=== PATIENT | female | born 1950 | race Caucasian/White ===

== ENCOUNTER 2025-09-11 07:12 | Outpatient (REF) | payer SELFPAY ==
--- OUTSIDE RECORDS SUMMARY | 2025-08-19 16:51 | XMS_ITS | Encounter Summary ---
Author Organization [facility] Address [address] [place] [address] Care Team Providers Care Parking Enforcement Manager Name Role Phone Vanessa Culver MD Primary Care Provider [phone] Reason for Referral * Cardiovascular Rehabilitation (Routine) - New Request Specialty Diagnoses / Procedures Referred By Kari shahid Referred To Contact Diagnoses Chronic systolic heart failure ([facility]) Katy Watson MD [address] [facility] [employer] [address] [place] [address] Phone: tel: fax: Referral ID Status Reason Start Date Expiration Date V isits Requested Visits Authorized [id number] New Request 09/10/2025 12/04/2026 1 1 * Consult / Treatment (Routine) - New Request Specialty Diagnoses / Procedures Referred By Kari shahid Referred To Contact Diagnoses Urinary retention Jorge Piña MD [address] [facility] [employer] [address] [place] [address] Phone: tel: fax: Referral ID Status Reason Start Date Expiration Date V isits Requested Visits Authorized [id number] New Request 09/04/2025 11/28/2026 1 1 * Consult / Treatment (Routine) - New Request Specialty Diagnoses / Procedures Referred By Contac t Referred To Contact Diagnoses Wrist drop, acquired, right Jorge Piña MD [address] [address] Phone: tel: fax: Referral ID Status Reason Start Date Expiration Date V isits Requested Visits Authorized [id number] New Request 09/04/2025 11/28/2026 1 1 * (Routine) - Pending Review Specialty Diagnoses / Procedures Referred By Kari t Referred To Contact Procedures Rehabilitation services not appropriate at this time Jorge Piña MD [address] [address] Phone: tel: fax: Referral ID Status Reason Start Date Expiration Date V isits Requested Visits Authorized [id number] Pending Review 09/04/2025 11/28/2026 1 1 Reason for Visit * Reason Comments Shoulder Pain * Auth/Cert (Routine) Specialty Diagnoses / Procedures Referred By Kari t Referred To Contact Diagnoses Closed comminuted fracture of left humerus, initial encounter Procedures [facility] IP/OBS CARE HIGH MDM 75 MINUTES Albin Puentes, DO [address] [place] [id number] Phone: tel: fax: Referral ID Status Reason Start Date Expiration Date Visits Re quested Visits Authorized [id number] 1 1 Encounter Details Date Type Department Care Team (Late st Contact Info) Description 08/19/2025 4:51 PM EST - 09/10/2025 5:30 PM EST Hospital Encounter [address] 330 [facility], [address]th [place] [address] Shelley Roblero MD [address] [place] [address] Jailyn Arreola MD [address] [facility] [place] [address] Harpreet Arredondo MD [address] [facility] [place] [address] Albin Puentes, DO [address] [place] [id number] Sunita Avery MD [address] [place] [address] Nadir Lewis MD [address] [place] [address] Eloy Gomez MD [address] [address] Jorge Piña MD 330 [facility] [address] [place] [address] Katy Watson MD 330 [facility] [place] [address] Acute pain of left shoulder (Primary Dx); Pain; Acute hypoxic respiratory failure (CMS-HCC); Chest pain, unspecified type; Urinary retention; Wrist drop, acquired, right; Anxiety; Chronic systolic heart failure (CMS-HCC); Acute on chronic hypoxic respiratory failure (CMS-HCC) [facility]charge Disposition[facility] Social History Tobacco Use Types Packs/Day Years Used Date Smoking Tobacco: Former Cigarettes 1.5 54 1 963 - 2017 Smokeless Tobacco: Never Alcohol Use Standard Drinks/Week Comments Never 0 (1 standard drink = 0.6 oz pur e alcohol) Humiliation, Afraid, Rape, and Kick questionnair e Answer Date Recorded Within the last year, have y ou been afraid of your partner or ex-partner? No 08/20/2025 Emotionally Abused Not on file 08/20/2025 Physically Abused Not on file 08/20/2025 Sexually Abused Not on file 08/20/2025 Social Connection and Isolation Panel Answer Date Recorded Frequency of Communication with Friends and Fami ly Not on file 08/23/2025 Frequency of Social Gatherings with Friends and Family Not on file 08/23/2025 Attends Druze Services Not on file 08/23 Active Member of Clubs or Organizations Not on f ile 08/23/2025 Attends Club or Organization Meetings Not on mimi e 08/23/2025 Are you , , di vorced, , never , or living with a partner? 08/23/2025 Overall Financial Resource Strain (CARDIA) Answe r Date Recorded How hard is it for you to pa y for the very basics like food, housing, medical care, and heating? Not hard at all 08/20/2025 Hunger Vital Sign Answer Date Recorded Within the past 12 months, y ou worried that your food would run out before you got the money to buy more. Never true 08/20/20 25 Ran Out of Food in the Last Year Not on file 08/20/2025 PRAPARE - Transportation Answer Date Re corded In the past 12 months, has l ack of transportation kept you from medical appointments or from getting medications? No 04/2025 In the past 12 months, has l ack of transportation kept you from meetings, work, or from getting things needed for daily living? No 08/20/2025 Housing Stability Vital Sign Answer Maxim e Recorded In the last 12 months, was t here a time when you were not able to pay the mortgage or rent on time? No 08/20/2025 Number of Times Moved in the Last Year Not on fi le 08/20/2025 Homeless in the Last Year Not on file 2024 [facility] Utilities Answer Date Recorded In the past 12 months has th e electric, gas, oil, or water company threatened to shut off services in your home? No 08/20/2025 Food Insecurity Answer Date Recorded Within the past 12 months, y ou worried that your food would run out before you got the money to buy more. Never true 08/20/20 25 Ran Out of Food in the Last Year Not on file 08/20/2025 Intimate Partner Violence Answer Date R ecorded Emotionally Abused Not on file 08/20/2025 Within the last year, have y ou been afraid of your partner or ex-partner? No 08/20/2025 Physically Abused Not on file 08/20/2025 Sexually Abused Not on file 08/20/2025 Housing Stability Answer Date Recorded Unstable Housing in the Last Year Not on file 08/20/2025 In the last 12 months, was t here a time when you were not able to pay the mortgage or rent on time? No 08/20/2025 [address] Lived in the Last Year Not on f ile 08/20/2025 AUDIT C Answer Date Recorded How often have you had a dri nk containing alcohol, in the past year? 0 08/20/2025 How many standard drinks con taining alcohol have you had on a typical day when you are drinking, in the past year? 0 1 2024 How often have you had six o r more drinks on one occasion, in the past year? 0 08/20/2025 Comments No Sex and Gender Information Value Date Recorded Sex Assigned at Female 08/18/2024 3:51 PM EST Legal Sex Female 7:30 AM EST Gender Identity Female 08/18/2024 3:51 PM EST Sexual Orientation Not on file documented as of this encounter Last Filed Vital Signs Vital Sign Reading Time Taken Comments Blood Pressure 126/49 09/10/2025 4:01 PM EST Pulse 68 09/10/2025 4:01 PM EST Temperature 36.6 C (97.9 F) 09/10/2025 4:01 PM EST Respiratory Rate 18 09/10/2025 11:53 AM EST Oxygen Saturation 100% 09/10/2025 4:19 PM EST Inhaled Oxygen Concentration - - Weight 62.8 kg (138 lb 6.4 oz) 09/09/2025 5:51 A M EST Height 172.7 cm (5' 8 ) 08/20/2025 4:29 AM EST Body Mass Index 21.04 08/20/2025 4:29 AM EST documented in this encounter Functional Status * Are you deaf or do you have serious difficulty hearing? Answer Date of Assessment Author No 08/20/2025 2:28 PM Guerda Petit RN * Are you blind or do you have serious difficulty seeing, even when wearing glasses? Answer Date of Assessment Author No 08/20/2025 2:28 PM Guerda Petit RN * Do you have serious difficulty walking or climbing stairs? Answer Date of Assessment Author No 08/20/2025 2:28 PM Guerda Petit RN * Do you have difficulty dressing or bathing? Answer Date of Assessment Author Yes 08/20/2025 2:28 PM Guerda Petit RN * Because of a physical, mental, or emotional condition, do you have difficulty doing errands alone such as visiting the doctor? Answer Date of Assessment Author No 08/20/2025 2:28 PM Guerda Petit RN documented as of this encounter Mental Status * Because of a physical, mental, or emotional condition, do you have serious difficulty concentrating, remembering, or making decisions? Answer Entry Date Author No 08/20/2025 2:28 PM Guerda Petit RN documented in this encounter Discharge Summaries * Katy Watson MD - 09/10/2025 3:04 PM EST DISCHARGE SUMMARY Date Of Admission: 08/19/2025 Inpatient Status Admit Date: 08/20/25 Date Of Discharge: Primary Care Physician: Vanessa Culver MD Reason for Admission: worsening b/l shoulder pain Principal Hospital Problem/Problem List: Discharge Diagnoses Diagnosis POA Closed comminuted fracture of left humerus, initial encounter Yes Acute on chronic hypoxic respiratory failure (CMS-HCC) Unknown Chronic HFrEF (heart failure with reduced ejection fraction) (CMS-HCC) Unknown Acute deep vein thrombosis (DVT) of axillary vein of right upper extremity (CMS- HCC) Unknown Moderate malnutrition Unknown Chronic hypoxic respiratory failure (CMS-HCC) Unknown Myelopathy (CMS-HCC) Unknown Chronic obstructive pulmonary disease (CMS-HCC) Unknown Resolved Diagnoses No resolved problems to display. Transitional Issues: Patient was discharged on the following pain regimen as outline in discharge summary/medication reconcilliation. Please wean opiates as possible once acute pain resolved. Failed a Trial of void in house on 08/30, likely multifactorial in setting of pain, opiates, and mobility. Urology referral for TOV She has follow up with Orthopedics on 09/11. Please continue to wrap Left upper extremity for compression. Activity restrictions: can come out of the sling for gentle pendulum range of motion. She may use the left upper extremity for light activity daily living but no heavy lifting more than 5 pounds (coffee cup weight bearing) On Apixaban for DVT treatment, should be treated for at least 3 months (circa 11/23/2024). Holding ASA until that time (indication non-obstructive Coronary artery disease) Should see endocrinology for ongoing care of osteoporosis Repeat CT chest in 3 months for pulmonary nodules Repeat CT in 12 months Thoracic aorta 4.0 - 4.4 cm in diameter Incidental Findings: [] Multilevel degenerative changes causing up to mild spinal canal stenosis most notable from C4-C5 through C6-C7 [] Chronic appearing T1 compression fracture with approximately 70% height loss without retropulsion. [] Few nodular opacity in left upper lung. These findings are better evaluated in recent CT pulmonary angiography. If clinically indicated consider CT chest follow-up in 3 months [] Thoracic aorta 4.0 - 4.4 cm in diameter - if stable findings at 12 months or interval increase in diameter is < 3 mm, consider follow-up with ECG-gated chest CTA in 2 years. Pending Tests on Discharge: Pending Data Order Current Status Vitamin A In process Follow-up Appointments: Future Appointments Date/Time Provider Department Center Visit Type 09/11/2025 1:00 PM NORMA Johnson [facility] Orthopedics [facility] ESTABLISHED PATIENT- ORTHO History Of Present Illness: [From H&P] Mayra Craft is a 74 y.o. 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 Recently, she has Chronic R rotator cuff arthropathy s/p R total shoulder arthroplasty 07/11/25 then conversion to R shoulder hemiarthroplasty with glenoid and humeral implant on 08/01/25. Was hospitalized 08/01-08/10 with SOB felt combo of slight CHF exacerbation and asCOPD as well, CTA no PE. Then there was concern for possible RLL aspiration on CTA with mucoid impaction. No fever, leukocytosis, tachy however to suggest active infection, continued bactrim 08/01-08/10 after surgery. No growth from OR culture to suggest infection. R arm was swollen after surgery, in which US then was negativefor DVT. Dced to [facility] ([facility]) She is presenting from rehab with bilateral shoulder pain after a fall while at rehab from 4 days ago. She states she was going to sit on toilet, miss judged, and landed on her L shoulder against thewall. No LOC. Worsening b/l shoulder pain, BIBA from [facility] and subsequently sent to [facility] for further evaluation. She reports bilateralupper extremity pain, denies any numbness/tingling/paresthesias. She states her R shoulder has beensignificantly swollen since surgery. She is otherwise denies any respiratory sx such as cough, SOB.No chest palpitations or chest pain, no ab pain. Hospital Course: TRANSITIONAL ISSUES Primary Care/Rehab Transitional Issues: Patient was discharged on the following pain regimen as outline in discharge summary/medication reconcilliation. Please wean opiates as possible once acute pain resolved. Failed a Trial of void in house on 08/30, likely multifactorial in setting of pain, opiates, and mobility. Urology referral for TOV She has follow up with Orthopedics on 09/11. Please continue to wrap Left upper extremity for compression. Activity restrictions: can come out of the sling for gentle pendulum range of motion. She may use the left upper extremity for light activity daily living but no heavy lifting more than 5 pounds (coffee cup weight bearing) On Apixaban for DVT treatment, should be treated for at least 3 months (circa 11/23/2024). Holding ASA until that time (indication non-obstructive Coronary artery disease) Should see endocrinology for ongoing care of osteoporosis Repeat CT chest in 3 months for pulmonary nodules Repeat CT in 12 months Thoracic aorta 4.0 - 4.4 cm in diameter Incidental Findings: [] Multilevel degenerative changes causing up to mild spinal canal stenosis most notable from C4-C5 through C6-C7 [] Chronic appearing T1 compression fracture with approximately 70% height loss without retropulsion. [] Few nodular opacity in left upper lung. These findings are better evaluated in recent CT pulmonary angiography. If clinically indicated consider CT chest follow-up in 3 months [] Thoracic aorta 4.0 - 4.4 cm in diameter - if stable findings at 12 months or interval increase in diameter is < 3 mm, consider follow-up with ECG-gated chest CTA in 2 years. Ortho Please follow up with radiographs. HOSPITAL COURSE SUMMARY Mayra Craft is a 74 y.o. 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 recent hospitalization 08/01-08/10 with shortness of breath felt combo of slight congestive heart failure exacerbation and COPDE/PNA mucoid impaction, dced to SNF presented with worsening b/l shoulde r pain after fall at SNF 4 days ago found to have Left humeral Fracture and Right upper extremity Deep vein thrombosis. S/p IR aspiration of right shoulder (08/22 9 am) to rule out septic arthritis, with cultures negative to date. Chronic pain was consulted for aid in pain management and ultimatelypt was discharged on mutli-modal pain control with assistance from pain service. Functional status was significantly impaired due to bilateral upper extremity injuries, pain, and deconditioning, necessitating maximal assistance with ADLs and mobility; discharge planning focused on transfer to a rehabilitation facility for ongoing care and therapy. PROBLEM LIST # Pain control # History of Opioid Use Disorder, on suboxone Pt with a history of opioid use disorder in setting of opioids for pancreatitis, recently started on suboxone (May). Requiring high amounts of opioids in this setting given her humerus fractureand post-R shoulder hemiarthroplasty. Chronic pain was consulted and aided in adjusting pain regimen. Initially required Morphine SATURATION DIVER; however, was weaned to oral pain medications. She was dischargedon the following pain regimen: - 8-2 mg dose suboxone TID - Lyrica 100 mg BID - Oxycodone 15 mg PO Q4H PRN - Methocarbamol 500 mg QID - Acetaminophen 1g 4 times daily PRN. # Left proximal humerus comminuted transverse fracture s/p fall # Significant LUE edema Patient with a mechanical fall after misjudging where the toilet seat is and falling onto her Left shoulder while at SNF. Given persistent pain, presented to the ED. CT scan of Left humerus showed acceptable alignment amenable to non- operative treatment with immobilization in a sling; however, pt unable to tolerate sling consistently with continued pain. Repeat LUE XR with interval callus formation and no new dislocation or fracture. Ortho followed and recommended follow-up in 1 week post discharge with Xray. - Pain control as above. - Activity restrictions: can come out of the sling for gentle pendulum range of motion. She may usethe left upper extremity for light activity daily living but no heavy lifting more than 5 pounds (coffee cup weight bearing) # Concern for Right Wrist Drop Patient with Right wrist pain and difficulty with voluntary extension. Ortho examined on 08/28 and not concerned about septic wrist, but are concerned for possible nerve impingement. Neurology initially recommended MRI right brachial plexus, but after discussion with Neurology + Radiology, there will be significant artifact owing her her Right shoulder prosthesis and her Left sided PPM to the point of a non-diagnostic study. She did undergo a C-spine MRI that was overall not concerning for acute process. An outpatient neurology appointment can be pursued with considerations of EMG at that time. - 08/28 Right humerus XR with osteopenia but no fracture. - Neurology Outpatient follow up. # Right shoulder swelling/pain, c/f R shoulder septic arthritis # Chronic R rotator cuff arthropathy s/p R total shoulder arthroplasty 07/11/25, conversion to Right shoulder hemiarthroplasty with glenoid and humeral implant on 08/01/25 # Chronic right shoulder dislocation Patient with increased Right shoulder pain and swelling post-surgery on 08/01 w/concern for possible septic joint w/CRP of 293. Initially given antibiotics, but d/c'ed for IR procedure on 08/20 to increase yield of IR tap on 08/22. Joint cultures NGTD. X ray showing chronic anterior dislocation of the humeral head relative to the glenoid, ortho reviewed and no acute intervention required, and willfollow-up OP (Dr. Goins). Pain was controlled as above. # Acute on chronic hypoxic respiratory failure (baseline 4L NC) # Hospital Acquire Pneumonia # Consolidative opacities in both lower lobes (from CT chest 08/19) # COPD without exacerbation Patient with noted consolidative opacities in both lower lobes from CT chest, initially w/o respiratory symptoms and baseline 4L NC. However, pt developed increased O2 requirements overnight, likely positional or 2/2 mucoid impaction; however, CXR still with evidence of PNA. Given pt was at rehab prior to current admission, treated recently for PNA with bactrim (08/01-08/10), and significant underlying lung disease will plan to treat for HAP. On 08/25, pt lost IV access and her IV antibiotics were transitioned to PO linezolid + levofloxacin. Overall, given pt's clinical stability very low concern for true MRSA HAP despite + MRSA swab, thus will plan to complete course of HAP coverage with Le vofloxacin, which was completed on 08/29. Repeat XR on 08/28 with stable to improved disease. Home inhalers continued. # Urinary retention Patient with urinary retention this admission. Multifactorial, likely some underlying pelvic floor dysfunction (was having trouble urinating prior to this hospitalization) + constipation from opioid use/decreased hydration + immobility. UA w/o evidence of infection. Helton was placed overnight between 08/25 - 08/26. Trial of void was attempted with continued retention. She will need to follow up with Urology outpatient for TOV. # Moderate hyponatremia, resolved Paitent with Na of 125 08/25. Overall most concerned for hypovolemic hyponatremia vs tea and toast given pt unable to feed herself consistently. Of note, patient also getting vancomycin in Dextrose which could be contributing. Last diuretic dose on 08/22. Urine studies consistent with ADH being on given Urine osms > 200. Urine Na is > 20, FeUrea < 55%. With IVF trial, Na increased, consistent with likely low EABV though if pt does have SIADH it is likely in setting of uncontrolled pain. # Access Patient with very difficult upper extremity access this admission given Right upper extremity DVT +Left humerus proximal fracture and resulting edema. Given need for SATURATION DIVER + other intermittent IV medication needs, including electrolyte repletion + frequent lab draws, temporary central line placed on08/27 as PICC/midline are not options. It was removed on discharge. # New Right axillary vein Deep vein thrombosis Patient with worsening R arm pain post-fall on L shoulder, w/increased swelling over right shoulderand lower arm. She was found on admission to have a new R axillary vein DVT. Hep gtt started 08/20. Switched to apixaban on 08/25 after confirmation of no further procedures. - Apixaban 5mg BID started on 08/25, requires at least 3 months AC (Circa 11/23/25). Outpatient follow up. CHRONIC CONDITIONS # Chronic HFrEF Nt-proBNP was normal 125 on admission w/no signs/symptoms of volume overload. Held home lasix 20mg MWF given lack of PO intake and concern regarding hypotension and hyponatremia as above. Entresto was resumed on 08/21. Lasix was resumed prior to discharge. # Sick sinus syndrome s/p dcICD # NSVT PVC burden of 10% on prior Zio. Metoprolol was therapeutically exchanged to tartrate 12.5 BID on admission. On discharge switched back to metoprolol succinate 12.5 BID. # Chronic iron deficiency anemia: Baseline hb 9-10s, iron low on 08/03, ferritin 101. Received IV Iron this admission and continued po iron. # Moderate malnutrition: Has lost >30lbs over last 6 months d/t poor appetite. Hypocalcemia corrected to ~9 w/albumin. - multivitamins, ensure tid, nutrition consult. Need help with food due to b/l arm pain # Constipation: Senna/miralax scheduled + bisacodyl suppository PRN # Chronic iron deficiency anemia: Baseline hb 9-10s. Tsat 6% on 08/03. Continue po iron, Ensure Outpatient work up. # Moderate malnutrition: has lost >30lbs over last 6 months d/t poor appetite. multivitamins, ensure tid, nutrition consult. Need help with food due to b/l arm pain # Hypothyroidism - levothyroxine 50mg # Anxiety/depression - ativan 0.5 bid -> changed to BID PRN due to high dose opioid use, c/h paroxetine 20 # GERD - omeprazole 20mg daily # Hyperlipidemia - atorvastatin 20mg daily. . # Nonobstructive CAD - asa 81, stop while on therapeutic AC for now Less than 30 days expected rehab Physical Exam: Temp: [97.1 ??F (36.2 ??C)-98.5 ??F (36.9 ??C)] 98.5 ??F (36.9 ??C) Heart Rate: [54-77] 77 Resp: [16-18] 18 BP: (96-145)/(56-71) 128/56 SpO2: [93 %-100 %] 93 % Physical Exam General: Appears comfortable with intermittently in pain with movement of her shoulders. HEENT: No scleral icterus. No conjunctival injection. Pulmonary: No increased work of breathing, on 4 L NC. Lungs with no wheezing, rales. Cardiovascular: Regular rate and rhythm. No murmurs, gallops, or rubs. Abdominal: Soft, mildly distended, non-tender to palpation. Extremities: No lower extremity edema. Warm and well perfused. MSK: Pt with large area of bruising around left arm (within marked area) and improving with ROM intact at shoulder, limited at elbow due to pain. LUE with improved swelling with compression with cori wrapping. RUE with 2+ pitting edema in the proximal arm. Mild tenderness to palpation over right upper arm with c/d/I incision scar anteriorly + preserved ROM at shoulder, ROM limited over elbow due to pain. R wrist with bruising over R wrist, pain with flexion, improvement on extension--ROM intact though with pain. Psych: Alert and oriented. Normal affect. 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 apixaban (ELIQUIS) 5 mg Tab, Take 1 tablet (5 mg total) by mouth in the morning and 1 tablet (5 mg total) before bedtime. Do all this for 163 doses. ascorbic acid (VITAMIN C) 500 MG tablet, Take 1 tablet (500 mg total) by mouth in the morning. [Paused] aspirin 81 MG EC tablet, Take 1 tablet (81 mg total) by mouth in the morning and 1 tablet (81 mg total) before bedtime. Paused since Wed09/04/2025 until manually resumed atorvaSTATin (LIPITOR) 20 MG tablet, Take 1 tablet (20 mg total) by mouth at bedtime. buprenorphine-naloxone (SUBOXONE) 8-2 mg Film, Place 1 Film under the tongue in the morning and 1 Film in the evening and 1 Film before bedtime. Do all this for 7 days. cholecalciferol (VITAMIN D3) 1,000 unit tablet, Take 1 tablet (1,000 Units total) by mouth in the morning. cycloSPORINE (RESTASIS) 0.05 % ophthalmic emulsion, Administer 1 drop to both eyes in the morning and 1 drop before bedtime. furosemide (LASIX) 20 MG tablet, Take 1 tablet (20 mg total) by mouth 3 times a week (Mon, Wed, Fri). levothyroxine (SYNTHROID, LEVOXYL) 50 MCG tablet, Take 1 tablet (50 mcg total) by mouth every morning. lidocaine 4 % PtMd patch, Place 2 patches on the skin in the morning. methocarbamoL (ROBAXIN) 500 MG tablet, Take 1 tablet (500 mg total) by mouth in the morning and 1 tablet (500 mg total) at noon and 1 tablet (500 mg total) in the evening and 1 tablet (500 mg total) before bedtime. metoprolol ER (TOPROL-XL) 25 MG 24 hr tablet, Take 0.5 tablets (12.5 mg total) by mouth in the morning and 0.5 tablets (12.5 mg total) before bedtime. mometasone-formoterol (Dulera) 100-5 mcg/actuation inhaler, Inhale 2 puffs in the morning and 2 puffs before bedtime. mometasone-formoterol (Dulera) 100-5 mcg/actuation inhaler, Inhale 2 puffs in the morning and 2 puffs before bedtime. Multivitamin with Minerals tablet, Take 1 tablet by mouth in the morning. Start: 09/11/25 omeprazole (PriLOSEC) [address] capsule, Take 1 capsule (20 mg total) by mouth every morning. PARoxetine (PAXIL) 20 MG tablet, Take 1 tablet (20 mg total) by mouth every morning. pregabalin (LYRICA) 100 MG capsule, Take 1 capsule (100 mg total) by mouth in the morning and 1 capsule (100 mg total) before bedtime. Do all this for 7 days. sacubitriL-valsartan (ENTRESTO) 24 mg-26 mg Tab per tablet, Take 0.5 tablets by mouth in the morning and 0.5 tablets before bedtime. sennosides (SENOKOT) 8.6 mg tablet, Take 2 tablets (17.2 mg total) by mouth in the morning and 2 tablets (17.2 mg total) before bedtime. tiotropium bromide (SPIRIVA RESPIMAT) 2.5 mcg/actuation Mist inhalation, Inhale 2 puffs in the morning. ZENPEP 25,000-79,000- 105,000 unit CpDR, Take 2 capsules (50,000 units of lipase total) by mouth inthe morning and 2 capsules (50,000 units of lipase total) at noon and 2 capsules (50,000 units of lipase total) in the evening. Take with meals. Two capsules before meals One capsule before and aftersnack. PRN acetaminophen (TYLENOL) 500 MG tablet, Take 2 tablets (1,000 mg total) by mouth every 6 hours as needed for pain. albuterol HFA (VENTOLIN HFA) 90 mcg/actuation aerosol inhaler, Inhale 2 puffs every 4 hours as needed for wheezing or shortness of breath. bisacodyl (DULCOLAX) 10 mg suppository, Insert 1 suppository (10 mg total) into the rectum daily asneeded for constipation. bisacodyl (DULCOLAX) 5 mg EC tablet, Take 2 tablets (10 mg total) by mouth daily as needed for constipation (3rd line; Give 12 hours after magnesium hydroxide for unrelieved constipation). calcium carbonate (TUMS) 200 mg calcium (500 mg) chewable tablet, Chew 1 tablet (500 mg total) 3 times a day as needed for heartburn. ipratropium (ATROVENT) 0.02 % nebulizer solution, Take 2.5 mL (0.5 mg total) by nebulization every 8 hours as needed for wheezing. ipratropium-albuteroL (DUONEB) 0.5-2.5 mg/3 mL nebulizer, Take 3 mL by nebulization every 6 hours as needed for wheezing. lidocaine HCL (URO-JET) 2 % JelP, Insert 5 mL into the urethra as needed (For patient comfort) for up to 1 dose. LORazepam (ATIVAN) 0.5 MG tablet, Take 1 tablet (0.5 mg total) by mouth 2 times a day as needed foranxiety for up to 7 days. ondansetron (ZOFRAN-ODT) 4 MG disintegrating tablet, Take 1 tablet (4 mg total) by mouth every 8 hours as needed for nausea. oxyCODONE (ROXICODONE) 15 MG immediate release tablet, Take 1 tablet (15 mg total) by mouth every 4hours as needed for pain for up to 4 days. polyethylene glycol (MIRALAX) 17 gram packet, Take 1 packet (17 g total) by mouth daily as needed (first line). No Frequency [id number] 160-9-4.8 mcg/actuation HFAA, INHALE 2 PUFFS BY MOUTH TWICE DAILY. RINSE AFTER USE Allergies: Tetracyclines and Gabapentin Labs: Results from last 7 days Lab Units 09/09/25 0526 09/07/25 0631 09/04/25 0403 WBC K/uL 4.45 4.34 5.78 HEMOGLOBIN g/dL 8.6* 8.6* 8.2* HEMATOCRIT % 28.7* 28.2* 26.5* PLATELETS K/uL 220 232 253 Results from last 7 days Lab Units 09/09/25 0526 09/07/25 0631 09/04/25 0403 SODIUM mmol/L 134* 134* 134* POTASSIUM mmol/L 4.8 3.9 4.3 CHLORIDE mmol/L 99 100 98 CO2 mmol/L 29 29 32 BUN mg/dL 19 19 21* CREATININE mg/dL 0.40 0.40 0.40 CALCIUM mg/dL 8.2* 8.4 8.1* GLUCOSE mg/dL 94 114* 124* Microbiology: Results for orders placed or performed during the hospital encounter of 08/19/25 Culture, Blood Collection Time: 08/19/25 5:12 PM Specimen: Peripheral; Blood Result Value Ref Range Culture No growth after 5 days Culture, Prosthetic Joint Fluid Collection Time: 08/22/25 9:53 AM Specimen: Prosthetic joint fluid; Body Fluid Result Value Ref Range Prosthetic Joint Fluid Culture No growth Smear,Gram Stain 1+ Polymorphonuclear Leukocytes Smear,Gram Stain No Microorganisms Seen Nasal MRSA by PCR Collection Time: 08/23/25 1:29 PM Specimen: Nares; Respiratory Result Value Ref Range MRSA PCR Positive (A) Negative Imaging: CT Shoulder Left Without Contrast Result Date: 08/21/2025 EXAMINATION: CT SHOULDER LEFT WO CONTRAST INDICATION: shoulder pain; TECHNIQUE: MDCT images of the left shoulder were obtained without contrast. Coronal and sagittal reformats were obtained. DOSE: Acquisition sequence: 1) Spiral Acquisition 5.0 s, 23.0 cm; CTDIvol = 13.3 mGy (Body) DLP = 306.2 mGy-cm Total DLP (Body) = 306 mGy-cm COMPARISON: Radiograph of left shoulder dated August [address] pulmonary angiography dated August 19. FINDINGS: BONES: Mild diffuse osseous demineralization. There is a complete transverse comminuted displaced fracture involving the neck of the humerus. The fracture line is seen extending into inferior articular surface of the humeral head as well as the greater t uberosity. There is almost half shaft width anterior displacement of the distal fracture fragment with mild superior migration (approximately 1.9 cm) and impaction. The glenohumeral alignment is well-maintained. No suspicious focal osseous lesion is seen. Note is made of compression fracture of indeterminate age T1 vertebral body and possible superior endplate compression of T2. Visualized ribs do not show any overt fracture, however the evaluation is limited by subtle motion artifacts. SOFT TISSUES: Mild soft tissue edema surrounding the shoulder joint. No localized fluid collection or any hematoma formation. No effusion or evidence of tendon entrapment. No disproportionate muscle atrophy.OTHER: Note is made of severe centrilobular emphysema in visualized lungs. Consolidative opacity inthe left lower lobe is partially visualized. Few nodular opacity in left upper lung. 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 These findings are better evaluated in recent CT pulmonary angiography 1. Complete transverse comminuted displaced, impacted fracture involving neck of the humerus extending into inferior articular surface humeral head and greater tuberosity 2. Compression fracture of indeterminate age T1 vertebral body and possible superior endplate compression of T2. 3. Consolidative opacity in the left lower lobe is partially visualized. Few nodular opacity in left upper lung. These findings are better evaluated in recent CT pulmonary angiography. If clinically indicated consider CT chest follow-up in 3 months. BY ELECTRONICALLY SIGNING THIS REPORT, I THE ATTENDING PHYSICIAN ATTEST THAT I HAVE REVIEWED THE IMAGES FOR THE ABOVE PROCEDURE(S) AND AGREE WITH THE FINDINGS DOCUMENTED. Guy Hummel MD, electronically signed on Aug 21 2025 10:44AM ECG 12 lead Result Date: 08/21/2025 Sinus rhythm with premature atrial depolarizations Minimal voltage criteria for LVH, may be normal variant ( Walker product ) Nonspecific T wave abnormality Inferior GA - indeterminate age Abnormal ECG When compared with ECG of 07-Aug-2025 13:31, premature ventricular depolarizations are no longerpresent premature atrial depolarizations are now present ST elevation now present in Anterior leads Shoulder 2+ Vw Left Result Date: 08/20/2025 INDICATION: s/p fall, surgery, pain, swelling ?fx; TECHNIQUE: Three views of the left shoulder COMPARISON: None. FINDINGS: A comminuted and impacted fracture of the left proximal humerus involves thehumeral head and surgical neck. No dislocation. Glenohumeral joint is preserved. Mild joint space narrowing of the acromioclavicular joint. Imaged left lung demonstrates chain sutures from prior leftupper segmentectomy. Generator pack for a pacer is seen in the left upper chest wall. Comminuted and impacted left proximal humeral fracture involving the humeral head and surgical neck. No dislocation. Akanksha Ríos MD, electronically signed on Aug 20 2025 11:03AM US Upper Extremity Venous Bilateral Result Date: 08/20/2025 EXAMINATION: US UPPER EXTREMITY VENOUS BILATERAL INDICATION: Edema, pain/tenderness TECHNIQUE: Greyscale and Doppler evaluation was performed on the bilateral upper extremity veins. COMPARISON: None. FINDINGS: There is normal flow with respiratory variation in the bilateral subclavian veins. The right internal jugular vein is patent, shows normal color flow, spectral doppler, and compressibility. The right brachial veins are patent and show compressibility. The right axillary vein is not compressible and does not show normal [id number] color flow, consistent with nonocclusive thrombus in the right axillary vein. The rest of the exam was not performed as the patient was unable to toleratethe exam due to pain. 1. Nonocclusive deep vein thrombus of the right axillary vein. 2. This study only assessed bilateral subclavian, right internal jugular, right brachial, and right axillary veins. The rest of upper extremities were not assessed as the patient was unable to tolerate the exam due to pain. NOTIFICATION: The findings were discussed with, and acknowledged by Dr. Albin Puentes by Dr. Sherry Valladares, using [employer] Secure Chat on 08/20/2025 at 9:53 am, 3 minutes after discovery of the findings. BY ELECTRONICALLY SIGNING THIS REPORT, I THE ATTENDING PHYSICIAN ATTEST THAT I HAVE REVIEWED THE IMAGES FOR THE ABOVE PROCEDURE(S) AND AGREE WITH THE FINDINGS DOCUMENTED. Sherry Gomez MD, electronically signed on Aug 20 2025 10:38AM XR Chest 1 Vw Portable Result Date: 08/19/2025 EXAMINATION: XR CHEST 1 VW PORTABLE INDICATION: sob, cough /pna; TECHNIQUE: Semi-upright AP view ofthe chest COMPARISON: CTA chest 19 August 2025 at 18:44 and 07 August 2025, chest radiograph 07 August 2025 FINDINGS: Left-sided pacer with leads in the right atrium and right ventricle, unchanged.Mild cardiomegaly is similar. Mediastinal and hilar contours are unchanged. No pulmonary edema. Diffuse increased interstitial opacities are again noted and related to underlying severe emphysema. Patchy airspace opacities are again noted in the lower lobes which is concerning for pneumonia. No pleural effusion or pneumothorax. No acute osseous abnormalities. Partially imaged comminuted left proximal humeral fracture. Status post right shoulder arthroplasty with the humeral head component demonstrating anterior dislocation. Contrast from recent CT examination is seen in the renal collectingsystems bilaterally. Patchy bilateral lower lobe opacities suggesting pneumonia as seen on prior CT. Partially imaged comminuted left proximal humeral fracture and anteriorly dislocated humeral component of a right shoulder arthroplasty. Akanksha Ríos MD, electronically signed on Aug 19 2025 10:25PM XR Shoulder 2+ Vw Right Result Date: 08/19/2025 INDICATION: s/p fall, surgery, pain, swelling ?fx; TECHNIQUE: Right shoulder, three views COMPARISON: CT chest 07 August 2025 and right shoulder radiographs 14 August 2025 FINDINGS: Status post right shoulder arthroplasty with persistent anterior, medial and inferior displacement of the humeral head component relative to the glenoid. No acute fracture. Acromioclavicular joint demonstrates milddegenerative changes. Fragmentation of the acromion appears chronic. No periarticular soft tissue calcifications. Severe emphysema is noted in the imaged right lung. 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 No acute fracture. Akanksha Ríos MD, electronically signed on Aug 19 2025 10:25PM XR Elbow 3+ VW Right Result Date: 08/19/2025 INDICATION: elbow pain; TECHNIQUE: AP and lateral views of the elbows bilaterally COMPARISON: None.FINDINGS: On the left, no acute fracture or dislocation. No elbow joint effusion. Mild degenerativechanges of the humeroulnar joint. No concerning lytic or sclerotic osseous abnormality. No embeddedradiopaque foreign body or soft tissue calcification. On the right, no acute fracture or dislocation. No elbow joint effusion. Mild degenerative changes of the ulnohumeral joint. No suspicious lytic or sclerotic osseous abnormality. Mild soft tissue irregularity is seen along the dorsal aspect of th e elbow. No acute fracture or dislocation involving either elbow. Akanksha Ríos MD, electronically signed on Aug 19 2025 10:24PM XR Elbow 3+ VW Left Result Date: 08/19/2025 INDICATION: elbow pain; TECHNIQUE: AP and lateral views of the elbows bilaterally COMPARISON: None.FINDINGS: On the left, no acute fracture or dislocation. No elbow joint effusion. Mild degenerativechanges of the humeroulnar joint. No concerning lytic or sclerotic osseous abnormality. No embeddedradiopaque foreign body or soft tissue calcification. On the right, no acute fracture or dislocation. No elbow joint effusion. Mild degenerative changes of the ulnohumeral joint. No suspicious lytic or sclerotic osseous abnormality. Mild soft tissue irregularity is seen along the dorsal aspect of th e elbow. No acute fracture or dislocation involving either elbow. Akanksha Ríos MD, electronically signed on Aug 19 2025 10:24PM CT Angiogram Chest PE : Arteriogram Addendum Date: 08/19/2025 ADDENDUM The patient is status post right shoulder arthroplasty (not reverse shoulder arthroplasty). The anterior dislocation of the humeral head component relative to the glenoid appears similar compared to the prior CTA chest from August 07, 2025. Akanksha Ríos MD, electronically signed on [id number] 08:47PM Result Date: 08/19/2025 EXAMINATION: CTA CHEST WITH CONTRAST INDICATION: pt w/ sob, chest pain, tachycardia; TECHNIQUE: Axial multidetector CT images were obtained through the thorax after the uneventful administration of intravenous contrast including reformatted coronal, sagittal, and oblique and axial maximal intensityprojection (MIP) images. DOSE: Acquisition sequence: 1) Stationary Acquisition 0.5 s, 0.5 cm; CTDIvol = 3.0 mGy (Body) DLP = 1.5 mGy-cm 2) Stationary Acquisition 2.0 s, 0.5 cm; CTDIvol = 12.1 mGy (Body) DLP = 6.1 mGy-cm 3) Spiral Acquisition 4.1 s, 30.6 cm; CTDIvol = 8.2 mGy (Body) DLP = 252.0 mGy-cm Total DLP (Body) = 260 mGy- cm COMPARISON: CTA chest 07 August 2025 FINDINGS: VASCULATURE: Main pulmonary artery is borderline enlarged at 3.1 cm. No filling defects to the subsegmental level to indicate a pulmonary embolism. Ascending aorta demonstrates fusiform dilatation to 4.2 cm and the descending thoracic aorta is dilated up to 3.4 cm, as seen previously. No aortic dissection or intramural hematoma. HEART: Mild cardiomegaly. Pacing leads terminate within the right atrium and right ventr icle. Moderate coronary artery calcifications. No significant pericardial effusion. AXILLA, MARCELL, AND MEDIASTINUM: No lymphadenopathy or mass. The esophagus is patulous which can be seen with esophageal dysmotility. PLEURAL SPACES: No pleural effusion or pneumothorax. LUNGS: Heterogeneous consolidative opacities in both lower lobes can be seen with pneumonia. Severe centrilobular emphysema is again demonstrated. AIRWAYS: Airway wall thickening suggesting inflammation is noted. Central airways are patent to the segmental bronchial level. BASE OF NECK: 5 mm rim calcified thyroid nodule is notedwhich does not require specific sonographic follow-up. ABDOMEN: Visualized upper abdomen unremarkable. BONES: A comminuted left proximal humeral fracture is incompletely imaged. Status post right reverse shoulder arthroplasty with anterior subluxation/dislocation of the hardware relative to the glenoid. A subacute fracture of the sternum is noted (602:74). Compression deformities of the T1 and T11 vertebral bodies are unchanged. SOFT TISSUES: Soft tissue stranding is seen within the left shoulder secondary to the humeral fracture. 1. No pulmonary embolism or acute aortic pathology. 2. Severe emphysema with mild dilatation of thepulmonary artery measuring up to 3.1 cm, unchanged, which can be seen with pulmonary arterial hypertension. 3. Mild dilatation of the ascending and descending thoracic aorta, unchanged. See recommendations below. 4. Heterogeneous consolidative opacities in both lower lobes may reflect pneumonia. 5.Acute, comminuted left proximal humeral fracture. 6. Status post reverse right shoulder arthroplasty with anterior subluxation/dislocation of the humeral component relative to the glenoid. 7. Chroniccompression deformities of T1 and T11 vertebral bodies. RECOMMENDATION(S): Follow-Up Imaging: Thoracic aorta 4.0 - 4.4 cm in diameter - if stable findings at 12 months or interval increase in diameter is < 3 mm, consider follow-up with ECG-gated chest CTA in 2 years. Management recommendations for follow-up of thoracic aortic aneurysm are based on existing literature and multidisciplinary consensus document of our institution, including Cardiology, Vascular Surgery, and Cardiac Surgery and it is specifically designed for this program. Siminelharmeet EM, et al. ACC/AHA Guideline for the Diagnosis and Management of Aortic Disease: A Report of the [place] [employer]/[place] College ofCardiology Joint Committee on Clinical Practice Guidelines. Circulation 2021; 146:f001-a471. Gopiel R, et al. ESC Guidelines on the diagnosis of thoracic and abdominal aorta of the adult. Eur Heart J 2014;35:4506-9015. Cindy TURCIOS, et al. The Society of Vascular Surgery practice guidelines on the care of patients with an abdominal aortic aneurysm. J Vasc Surg 2018;67:2-77. Joseph V, et al. Management of Descending Thoracic Aortic Disease: Clinical Practice Guidelines of the Society of Vascular Surgery. Eur J Vasc Endovasc Surg 2017;53:4-52. Akanksha Ríos MD, electronically signed on Aug 19 2025 07:13PM US Lower Extremity Venous Left Result Date: 08/19/2025 EXAMINATION: US LOWER EXTREMITY VENOUS LEFT INDICATION: Left lower extremity pain and edema. TECHNIQUE: Mullen scale, color, and spectral Doppler evaluation was performed on the left lower extremity veins. The patient could not tolerate evaluation of the calf veins. COMPARISON: None. FINDINGS: There is normal compressibility, color flow, and spectral doppler of the left common femoral, femoral, andpopliteal veins. The patient was unable to tolerate evaluation of the calf veins. There is normal respiratory variation in the common femoral veins bilaterally. No evidence of medial popliteal fossa ([place]) cyst. Unable to evaluate the calf veins, but there is no evidence of deep venous thrombosis in the other left lower extremity veins. BY ELECTRONICALLY SIGNING THIS REPORT, I THE ATTENDING PHYSICIAN ATTEST THAT I HAVE REVIEWED THE IMAGES FOR THE ABOVE PROCEDURE(S) AND AGREE WITH THE FINDINGS DOCUMENTED. Geo Ríos MD, electronically signed on Aug 19 2025 07:17PM CT Cervical Spine Without Contrast Result Date: 08/19/2025 EXAMINATION: CT CERVICAL SPINE WO CONTRAST INDICATION: s/p fall; TECHNIQUE: Contiguous axial imagesobtained through the cervical spine without intravenous contrast. Coronal and sagittal reformats were reviewed. DOSE: Acquisition sequence: 1) Sequenced Acquisition 18.0 s, 18.0 cm; CTDIvol = 50.2 mGy (Head) DLP = 903.1 mGy-cm 2) Spiral Acquisition 5.7 s, 21.2 cm; CTDIvol = 24.5 mGy (Body) DLP = 518.9 mGy-cm Total DLP (Body) = 519 mGy-cm Total DLP (Head) = 903 mGy-cm Note: This radiation dose report was copied from accession #[id number] (CT HEAD WO CONTRAST) COMPARISON: CT chest 07 August 2025 FINDINGS: Reversal of the normal cervical lordosis is demonstrated. No traumatic malalignment. R otation of C1 on C2 is likely due to head positioning within the scanner. No definite acute fractures are identified. There is moderate anterior height loss of the T1 vertebral body, unchanged from prior CT from July 2025. [id number] multilevel degenerative changes with intervertebral disc space narrowing, endplate sclerosis, and osteophyte formation. No high-grade central canal stenosis. Mild multilevel neural foraminal stenosis without high-grade narrowing.There is no prevertebral edema. Stranding in the left supraclavicular soft tissues relates to a left proximal humeral fractureas seen on the biochemistry teacher views. Severe emphysema is noted in the left lung apex. Thyroid gland demonstra kasi a rim calcified 5 mm nodule on the right which does not require dedicated imaging follow-up. 1. No acute cervical spine fracture or traumatic malalignment. 2. Left proximal humeral fracture imaged on the biochemistry teacher view. 3. Chronic compression deformity of the T1 vertebral body. Akanksha Ríos MD, electronically signed on Aug 19 2025 06:57PM CT Head Without Contrast Result Date: 08/19/2025 EXAMINATION: CT HEAD WO CONTRAST [id number] CT BID-HEAD INDICATION: s/p fall; TECHNIQUE: Contiguous axial images of the brain were obtained without contrast. Coronal and sagittal reformations as well as bone algorithm reconstructions were provided and reviewed. DOSE: Acquisition sequence: 1) Sequenced Acquisition 18.0 s, 18.0 cm; CTDIvol = 50.2 mGy (Head) DLP = 903.1 mGy-cm 2) Spiral Acquisition 5.7 s, 21.2 cm; CTDIvol = 24.5 mGy (Body) DLP = 518.9 mGy-cm Total DLP (Body) = 519 mGy-cm Total DLP (Head) = 903 mGy-cm COMPARISON: None. FINDINGS: There is no evidence of fracture, acute large territorial infarction, hemorrhage, edema, or mass. There is prominence of the ventricles and sulci sugg estive of involutional changes. Moderate periventricular and subcortical white matter hypodensitiesare nonspecific, but likely reflect the sequela of chronic microvascular infarction. The visualizedportion of the paranasal sinuses, mastoid air cells, and middle ear cavities are clear. Patient is status post bilateral lens replacements. 1. No acute intracranial abnormality. Akanksha Ríos MD, electronically signed on Aug 19 2025 06:49PM Advanced Care Planning: Most Recent Code Status: Full Code Extended Emergency Contact Information Primary Emergency Contact: Ashanti Green Address: [address] [place] [address] [place] Mobile Relation: Daughter Secondary Emergency Contact: Rory Craft Address: [address] [place] [id number] [place] Mobile Relation: Son Discharge Disposition: Acute Rehabiliation Anticipated STR <30 days Discharge plan was discussed with patient and surrogate decision maker who verbalized understanding. Educational materials were provided. >30 minutes were spent in coordinating the discharge planning. Katy Watson MD Section of Hospital Medicine [facility] [1] Medications Prior to Admission Medication Sig Dispense Refill Last Dose/Taking [Paused] aspirin 81 MG EC tablet Take 1 tablet (81 mg total) by mouth in the morning and 1 tablet (81 mg total) before bedtime. (Patient taking differently: Take 1 tablet (81 mg total) by mouth in the morning.) Taking Differently buprenorphine-naloxone (SUBOXONE) 8-[address] 1 Film under the tongue in the morning. (Patient taking differently: Place 0.5 Film under the tongue at bedtime.) Taking Differently albuterol HFA (VENTOLIN HFA) 90 mcg/actuation aerosol inhaler Inhale 2 puffs every 4 hours as needed for wheezing or shortness of breath. ALPRAZolam (XANAX) 0.5 MG tablet Take 1 tablet (0.5 mg total) by mouth daily as needed for anxiety (prior to dental procedures). ascorbic acid (VITAMIN C) 500 MG tablet Take 1 tablet (500 mg total) by mouth in the morning. atorvaSTATin (LIPITOR) 20 MG tablet Take 1 tablet (20 mg total) by mouth at bedtime. bisacodyl (DULCOLAX) 5 mg EC tablet Take 2 tablets (10 mg total) by mouth daily as needed for constipation (3rd line; Give 12 hours after magnesium hydroxide for unrelieved constipation). eptewpufrv-thbfrgjh-xtuudwskcz 160-9-4.8 mcg/actuation HFAA INHALE 2 PUFFS BY MOUTH TWICE DAILY. RINSE AFTER USE calcium carbonate (TUMS) 200 mg calcium (500 mg) chewable tablet Chew 1 tablet (500 mg total) in the morning. cholecalciferol (VITAMIN D3) 1,000 unit tablet Take 1 tablet (1,000 Units total) by mouth in the morning. cycloSPORINE (RESTASIS) 0.05 % ophthalmic emulsion Administer 1 drop to both eyes in the morning and 1 drop before bedtime. diazePAM (VALIUM) 5 MG tablet TAKE 1 TABLET BY MOUTH 1 HOUR BEFORE PROCEDURE furosemide (LASIX) 20 MG tablet Take 1 tablet (20 mg total) by mouth 3 times a week (Mon, Wed, Fri). ibuprofen (MOTRIN) 800 MG tablet Take 1 tablet (800 mg total) by mouth every 8 hours as needed for pain. ipratropium (ATROVENT) 0.02 % nebulizer solution Take 2.5 mL (0.5 mg total) by nebulization every 8hours as needed for wheezing. levothyroxine (SYNTHROID, LEVOXYL) 50 MCG tablet Take 1 tablet (50 mcg total) by mouth every morning. LORazepam (ATIVAN) 0.5 MG tablet Take 1 tablet (0.5 mg total) by mouth in the morning and 1 tablet (0.5 mg total) before bedtime. metoprolol ER (TOPROL-XL) 25 MG 24 hr tablet Take 0.5 tablets (12.5 mg total) by mouth in the morning and 0.5 tablets (12.5 mg total) before bedtime. mometasone-formoterol (Dulera) 100-5 mcg/actuation inhaler Inhale 2 puffs in the morning and 2 puffs before bedtime. omeprazole (PriLOSEC) [address] capsule Take 1 capsule (20 mg total) by mouth every morning. oxyCODONE (ROXICODONE) 5 MG immediate release tablet Take 1 tablet (5 mg total) by mouth every 4 hours as needed for pain. 10 tablet 0 PARoxetine (PAXIL) 20 MG tablet Take 1 tablet (20 mg total) by mouth every morning. polyethylene glycol (MIRALAX) 17 gram packet Take 1 packet (17 g total) by mouth daily as needed (first line). potassium chloride ER (MICRO-K) 10 MEQ ER capsule Take 1 capsule (10 mEq total) by mouth in the morning. sacubitriL-valsartan (ENTRESTO) 24 mg-26 mg Tab per tablet Take 0.5 tablets by mouth in the morningand 0.5 tablets before bedtime. tiotropium bromide (SPIRIVA RESPIMAT) 2.5 mcg/actuation Mist inhalation Inhale 2 puffs in the morning. [DISCONTINUED] acetaminophen (TYLENOL) 500 MG tablet Take 2 tablets (1,000 mg total) by mouth in the morning and 2 tablets (1,000 mg total) in the evening and 2 tablets (1,000 mg total) before bedtime. [DISCONTINUED] udnyjq-hvxywuol-ofawkfk, pork, (CREON) 24,000-76,000 -120,[address] capsule Take 2 capsules (48,000 units of lipase total) by mouth in the morning and 2 capsules (48,000 units of lipase total) at noon and 2 capsules (48,000 units of lipase total) in the evening. Take with meals. [DISCONTINUED] ZENPEP 25,000-79,000- 105,000 unit CpDR Take 2 capsules (50,000 units of lipase total) by mouth and refer to additional instructions. Two capsules before meals One capsule before and after snack documented in this encounter Discharge Instructions * Discharge Instructions* Katy Watson MD - 09/10/2025 3:03 PM EST Dear Mayra, It was a pleasure taking part in your care here at [facility]! Why was I admitted to the hospital? You were admitted for b/l shoulder pain after fall What was done for me while I was in the hospital? During your admission, you underwent: Tests: You had x-rays that showed a left humeral fracture, you had an ultrasound that showed a right upper extremity deep vein thrombosis Procedures: IR aspiration of your right shoulder We found that you: Findings/Diagnosis: You are found to have a left humeral fracture, your shoulder was checked for infection and was negative. You had an MRI which was overall not concerning for any acute processes We managed your condition with: Medications/Treatments: For your pain you were seen by the chronic pain team your Suboxone was uptitrated, you remain on oxycodone, Lyrica was started and uptitrated What should I do when I leave the hospital? Please take all of your medications as prescribed. If you were given any prescriptions on discharge, any future refills will need to be authorized by your outpatient providers. Please attend all of your follow-up appointments as scheduled. It is important for you to follow up with your primary care doctor once you leave the hospital. We wish you the best! Sincerely, Your [facility] Care Team * Discharge Instr - Wound* Mateusz Remy RN - 09/10/2025 4:03 PM EST Wound Assessment: Location: R elbow Present on Admission Yes Pressure Injury No Type/Etiology: traumatic wound 2/2 fall prior to admission Concern for infection: increasing wound bed Location: R 2nd toe Present on Admission Yes Pressure Injury No Type/Etiology: prior infection Topical therapy: R elbow -Commercial wound cleanser or normal saline to cleanse wounds. -Pat the tissue dry with dry gauze. -pack wound with aquacel ag rope (WD #[id number]) lightly moistened with wound cleanser spray, ensureto fill wound fully. -Cover with ABD pad and secure with kerlix wrap -Change dressing daily or as needed if soiled -consider sling? Topical therapy: R 2nd toe -Commercial wound cleanser or normal saline to cleanse wounds. -Pat the tissue dry with dry gauze. 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 5 acetaminophen (TYLENOL) 500 MG tablet Take 2 tablets (1,000 mg total) by mouth every 6 hours. 5 albuterol HFA (VENTOLIN HFA) 90 mcg/actuation aerosol inhaler Inhale 2 puffs every 4 hours as needed for wheezing or shortness of breath. 5 apixaban (ELIQUIS) 5 mg TabIndications:Cari tment of VTE (acute) Take 1 tablet (5 mg total) by mouth in the morning and 1 tablet (5 mg total) before bedtime. Do all this for 163 doses. 5 11/26/19 26 ascorbic acid (VITAMIN C) 500 MG tablet Take 1 tablet (500 mg total) by mouth in the morning. 5 aspirin 81 MG EC tablet Take 1 tablet (81 mg total) by mouth in the morning and 1 tablet (81 mg total) before bedtime. 5 09/21/19 26 atorvaSTATin (LIPITOR) 20 MG tablet Take 1 tablet (20 mg total) by mouth at bedtime. 5 bisacodyl (DULCOLAX) 10 mg suppository Insert 1 suppository (10 mg total) into the rectum daily as needed for constipation. 5 bisacodyl (DULCOLAX) 5 mg EC tablet Take 2 tablets (10 mg total) by mouth daily as needed for constipation (3rd line; Give 12 hours after magnesium hydroxide for unrelieved constipation). 5 budesonide-glycopyr -formoterol 160-9-4.8 mcg/actuation HFAA INHALE 2 PUFFS BY MOUTH TWICE DAILY. RINSE AFTER USE buprenorphine-nalox one (SUBOXONE) 8-2 mg FilmIndications:Acu te pain of left shoulder Place 1 Film under the tongue in the morning and 1 Film in the evening and 1 Film before bedtime. Do all this for 7 days. 21 Film 5 09/17/19 26 calcium carbonate (TUMS) 200 mg calcium (500 mg) chewable tablet Chew 1 tablet (500 mg total) 3 times a day as needed for heartburn. 5 cholecalciferol (VITAMIN D3) 1,000 unit tablet Take 1 tablet (1,000 Units total) by mouth in the morning. 5 cycloSPORINE (RESTASIS) 0.05 % ophthalmic emulsion Administer 1 drop to both eyes in the morning and 1 drop before bedtime. 5 furosemide (LASIX) 20 MG tablet Take 1 tablet (20 mg total) by mouth 3 times a week (Mon, Wed, Fri). 5 ipratropium (ATROVENT) 0.02 % nebulizer solution Take 2.5 mL (0.5 mg total) by nebulization every 8 hours as needed for wheezing. 5 ipratropium-albuter oL (DUONEB) 0.5-2.5 mg/3 mL nebulizer Take 3 mL by nebulization every 6 hours as needed for wheezing. 5 levothyroxine (SYNTHROID, LEVOXYL) 50 MCG tablet Take 1 tablet (50 mcg total) by mouth every morning. 5 lidocaine 4 % PtMd patch Place 2 patches on the skin in the morning. 5 lidocaine HCL (URO-JET) 2 % JelP Insert 5 mL into the urethra as needed (For patient comfort) for up to 1 dose. 5 LORazepam (ATIVAN) 0.5 MG tabletIndications:A nxiety Take 1 tablet (0.5 mg total) by mouth 2 times a day as needed for anxiety for up to 7 days. 14 tablet 5 09/17/19 26 methocarbamoL (ROBAXIN) 500 MG tablet Take 1 tablet (500 mg total) by mouth in the morning and 1 tablet (500 mg total) at noon and 1 tablet (500 mg total) in the evening and 1 tablet (500 mg total) before bedtime. 5 metoprolol ER (TOPROL-XL) 25 MG 24 hr tablet Take 0.5 tablets (12.5 mg total) by mouth in the morning and 0.5 tablets (12.5 mg total) before bedtime. 5 mometasone-formoter ol (Dulera) 100-5 mcg/actuation inhaler Inhale 2 puffs in the morning and 2 puffs before bedtime. 5 mometasone-formoter ol (Dulera) 100-5 mcg/actuation inhaler Inhale 2 puffs in the morning and 2 puffs before bedtime. 5 Multivitamin with Minerals tablet Take 1 tablet by mouth in the morning. 5 omeprazole (PriLOSEC) [address] capsule Take 1 capsule (20 mg total) by mouth every morning. 5 ondansetron (ZOFRAN-ODT) 4 MG disintegrating tablet Take 1 tablet (4 mg total) by mouth every 8 hours as needed for nausea. 5 oxyCODONE (ROXICODONE) 15 MG immediate release tabletIndications:A cute pain of left shoulder Take 1 tablet (15 mg total) by mouth every 4 hours as needed for pain for up to 4 days. 24 tablet 5 09/14/19 26 PARoxetine (PAXIL) 20 MG tablet Take 1 tablet (20 mg total) by mouth every morning. 5 polyethylene glycol (MIRALAX) 17 gram packet Take 1 packet (17 g total) by mouth daily as needed (first line). 5 pregabalin (LYRICA) 100 MG capsuleIndications: Acute on chronic hypoxic respiratory failure (CMS-HCC) Take 1 capsule (100 mg total) by mouth in the morning and 1 capsule (100 mg total) before bedtime. Do all this for 7 days. 14 capsule 5 09/17/19 26 sacubitriL-valsarta n (ENTRESTO) 24 mg-26 mg Tab per tablet Take 0.5 tablets by mouth in the morning and 0.5 tablets before bedtime. 5 sennosides (SENOKOT) 8.6 mg tablet Take 2 tablets (17.2 mg total) by mouth in the morning and 2 tablets (17.2 mg total) before bedtime. 5 tiotropium bromide (SPIRIVA RESPIMAT) 2.5 mcg/actuation Mist inhalation Inhale 2 puffs in the morning. 5 ZENPEP 25,000-79,000- 105,000 unit CpDR Take 2 capsules (50,000 units of lipase total) by mouth in the morning and 2 capsules (50,000 units of lipase total) at noon and 2 capsules (50,000 units of lipase total) in the evening. Take with meals. Two capsules before meals One capsule before and after snack. 200 capsule 5 10/07/19 26 documented as of this encounter Progress Notes * Yessenia Villanueva RN - 09/10/2025 2:37 PM EST Case Management Discharge Note Patient: Mayra Craft : 1950 Attending: Katy Watson MD Admit Date: 08/19/2025 Inpatient Status Admit Date: 08/20/25 Primary Care Physician: Vanessa Culver MD Discharge Placement/Services Facility or Service Provider: [facility] Address: [address] [place] [address] Facility or Service Provider: Referral Unplaced Address: Not Applicable Contact Phone: Not Applicable Transportation: S ambulance booked for 1600 pm RN Please fax/attach AVS to [phone] *Sending M2B Creon and Zenep with her. For Warm Handoff report, please call [phone] As discussed today in MDRs, patient is medically cleared for discharge today STR /SNF. A list of insurance contracted facilities reviewed with patient, referrals sent and accepted. Yessenia Villanueva RN [id number] * Katy Watson MD - 09/10/2025 11:55 AM EST Images from the original note were not included. [facility] Section of Hospital Medicine [facility] Progress Note Patient: Marya Craft Admission Date: 08/19/2025 Length of Stay: 21 PCP: Vanessa Culver MD Attending: Katy Watson MD Chief Complaint: Originally Shoulder pain after fall with Left proximal humerus fx. 24H EVENTS No overnight events SUBJECTIVE S over the last few days she has been able to eat and drink more which is encouraging her. Her arm pain is the same and she is hoping to be seen by wound care nurse today. OBJECTIVE DATA VITALS T 98.5 ??F (36.9 ??C) HR 77 BP 128/56 RR 18 SpO2 93 % 4 L/min O2 Device: None (Room air) 62.8 kg (138 lb 6.4 oz) Body mass index is 21.04 kg/m??. PHYSICAL EXAM General: Appears comfortable with intermittently in pain with movement of her shoulders. HEENT: No scleral icterus. No conjunctival injection. Pulmonary: No increased work of breathing, on 4 L NC. Lungs with no wheezing, rales. Cardiovascular: Regular rate and rhythm. No murmurs, gallops, or rubs. Abdominal: Soft, mildly distended, non-tender to palpation. Extremities: No lower extremity edema. Warm and well perfused. MSK: Pt with large area of bruising around left arm (within marked area) and improving with ROM intact at shoulder, limited at elbow due to pain. LUE with improved swelling with compression with cori wrapping. RUE with 2+ pitting edema in the proximal arm. Mild tenderness to palpation over right upper arm with c/d/I incision scar anteriorly + preserved ROM at shoulder, ROM limited over elbow due to pain. R wrist with bruising over R wrist, pain with flexion, improvement on extension--ROM intact though with pain. Psych: Alert and oriented. Normal affect. Lines: Helton in place LABS, MICROBIOLOGY and STUDIES reviewed in Epic. Pertinent Discussed in Assessment and Plan. ASSESSMENT & PLAN Mayra Craft is a 74 y.o. 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 S/p R shoulder IR aspiration 08/22 withno culture growth. Patient currently inpatient with continued pain control but can continue titration at SNF; Cpsine MRI reassuring. Med stable today for discharge to SNF. Acute problems: # Pain control # History of Opioid Use Disorder, on suboxone Pt with a history of opioid use disorder in setting of opioids for pancreatitis, recently started on suboxone (May). Requiring high amounts of opioids in this setting given her humerus fractureand post-R shoulder hemiarthroplasty. - Chronic pain consulted, appreciate recommendations - Continue suboxone, increased to 8-2 TID on 08/27 per chronic pain recommendations - Continue Lyrica 100 twice daily, can consider further uptitration as outpatient - Added on methocarbamol 500 mg QID on 08/27 Prior Regimens: - S/p Morphine SATURATION DIVER 08/22-08/28 - currently requiring oxycodone 15 mg q4 PRN pain - IV acetaminophen for now, by pt request # Right Wrist Drop - ? Radial nerve palsy # UMN signs (bilateral leg spacticity, hyperreflex on upper) Pt with R wrist pain and difficulty with voluntary extension. Ortho examined on 08/28 and not concerned about septic wrist, but are concerned for possible nerve impingement. Neurology initially recommended MRI right brachial plexus, but after discussion with Neurology + Radiology, there will be significant artifact owing her her Right shoulder prosthesis and her Left sided PPM to the point of a non-diagnostic study; Discussed with radiology on 09/05 that a c-spine MRI would be possible; Logistically a CT C-spine for gross nerve impingement may be easier to evaluate. - 08/28 Right humerus XR with osteopenia but no fracture. - Neurology consult, defer MRI brachial plexus. - MRI C-spine ordered looking for significant cord impingement and was reassuring. # Access with CVC (08/27), removed 09/04 Pt with very difficult upper extremity access given RUE DVT + Left humerus proximal fracture and resulting edema. Given need for SATURATION DIVER + other intermittent IV medication needs, including electrolyte repletion + frequent lab draws, Had IR placed triple lumen CVC on 08/27. Removed on 09/04 in anticipation for discharge when accepted to rehab, though rehab late on day of admission then declined. - Right hand PIV placed 09/06. # Left proximal humerus comminuted transverse fracture s/p fall # Significant LUE edema Pt with a mechanical fall after misjudging where the toilet seat is and falling onto her L shoulder. Given persistent pain, presented to the ED. CT scan of L humerus showed acceptable alignment amenable to non-operative treatment with immobilization in a sling; however, pt unable to tolerate sling consistently with continued pain. Repeat LUE XR with interval callus formation and no new dislocation or fracture. - Ortho following, will plan for 1-2 week follow-up with L shoulder X-Ray LUE wrapped for compression due to edema with distal pulse, sensation, and motion checks every shift Re-engaged on 08/28 given continued pain, and significant swelling - Activity restrictions: can come out of the sling for gentle pendulum range of motion. She may usethe left upper extremity for light activity daily living but no heavy lifting more than 5 pounds (coffee cup weight bearing) - Pain control, see #Pain control as above - Appreciate OT evaluation # Right shoulder swelling/pain, c/f R shoulder septic arthritis # Chronic R rotator cuff arthropathy s/p R total shoulder arthroplasty 07/11/25, conversion to R shoulder hemiarthroplasty with glenoid and humeral implant on 08/01/25 # Chronic right shoulder dislocation Pt with increased R shoulder pain and swelling post-surgery on 08/01 w/concern for possible septic joint w/CRP of 293. Initially given antibiotics, but d/c'ed for IR procedure on 08/20 to increase yield of IR tap on 08/22. Joint cultures NGTD. X ray showing chronic anterior dislocation of the humeral head relative to the glenoid, ortho reviewed and no acute intervention required, and will follow-up OP (Dr. Goins). - See #Pain control as above # Acute on chronic hypoxic respiratory failure (bl 4L NC), acute now resolved. # Hospital Acquire Pneumonia # Leukocytosis, improved # Consolidative opacities in both lower lobes (from CT chest 08/19) # COPD without exacerbation Pt with noted consolidative opacities in both lower lobes from CT chest, initially w/o respiratory symptoms and baseline 4L NC. However, pt developed increased O2 requirements overnight, likely positional or 2/2 mucoid impaction; however, CXR still with evidence of PNA. Given pt was at rehab prior to current admission, treated recently for PNA with bactrim (08/01-08/10), and significant underlying lung disease, treated for HAP. On 08/25, pt lost IV access and her IV antibiotics were transitioned to PO linezolid + levofloxacin. Overall, given pt's clinical stability very low concern for true MRSA HAP despite + MRSA swab, completed course of HAP coverage with Levofloxacin. - Vanc/Cefepime 08/23 - 08/25, Linezolid 08/26, Levofloxacin 08/26 - 08/29 - ANALYTICAL DATA MINER consultation appreciated, ok for regular diet - Continue home Dulera + Spiriva, incentive kari # Urinary retention # Indwelling Helton with failed voiding trial 08/30 Pt with urinary retention this admission. Multifactorial, likely underlying pelvic floor dysfunction (pt was having trouble urinating prior to this hospitalization) + constipation from opioid use/decreased hydration + immobility. - Helton placed 08/25, TOV attempted on 08/29, unsuccessful; Helton replaced [] TI: Outpatient/Rehab TOV. # Acute Right axillary vein DVT, provoked. Pt with worsening R arm pain post-fall on L shoulder, w/increased swelling over right shoulder and lower arm. She was found on admission to have a new R axillary vein DVT. Heparin gtt bridged to Apixaban. - Apixaban 5mg BID started on 08/25, requires at least 3 months AC (Circa 11/23/25). Outpatient follow up. Chronic problems: # Chronic HFrEF Nt-proBNP was normal 125 on admission w/no signs/symptoms of volume overload. - on home lasix 20mg MW - entresto resumed 08/21 - daily weights, strict I&O # SSS s/p dcICD + NSVT: PVC burden of 10% on prior Zio. Continue Metop succinate 12.5 bid # Constipation: Senna/miralax scheduled + bisacodyl suppository PRN # Chronic iron deficiency anemia: Baseline hb 9-10s. Tsat 6% on 08/03. Continue po iron, Ensure Outpatient work up. # Moderate malnutrition: has lost >30lbs over last 6 months d/t poor appetite. multivitamins, ensure tid, nutrition consult. Need help with food due to b/l arm pain # Hypothyroidism - levothyroxine 50mg # Anxiety/depression - ativan 0.5 bid -> changed to BID PRN due to high dose opioid use, c/h paroxetine 20 # GERD - omeprazole 20mg daily # Hyperlipidemia - atorvastatin 20mg daily. . # Nonobstructive CAD - asa 81, stop while on therapeutic AC for now Core Bundle # PAML: complete # Nutrition/Hydration: Oral. # Functional status: Out of bed to chair with assist. # Lines/Tubes/Drains: CVC line . # VTE prophylaxis: N/A - patient is therapeutically anticoagulated # Contacts/HCP/Surrogate and Communication: Extended Emergency Contact Information Primary Emergency Contact: Ashanti Green Address: [address] [place] [address] [place] Mobile Relation: Daughter Secondary Emergency Contact: Rory Craft Address: [address] [place] [id number] [place] [address] Mobile Relation: Son # Advanced Care Planning: Full Code. Disposition Anticipated Disposition: snf facility. Anticipated Length of Stay: 1-2 days Barriers to Discharge: accepting rehab I have spent a total of 40 minutes on this clinical encounter reviewing the medical record, seeing and examining the patient, reviewing data, writing the note, placing orders, and communicating with the applicable medical and nursing teams. More than 50% of this time was spent on patient/family counseling. Moderate Chronic Malnutrition (present on admission) : Assessed - Severity based on ASPEN criteria as documented by the cad manager and is ordered for vitamin/mineral supplementation Katy Watson MD Section of Hospital Medicine [facility] Pager: [phone] * Katy Watson MD - 09/09/2025 2:23 PM EST Images from the original note were not included. [facility] Section of Hospital Medicine [facility] Progress Note Patient: Mayra Craft Admission Date: 08/19/2025 Length of Stay: 20 PCP: Vanessa Culver MD Attending: Katy Watson MD Chief Complaint: Originally Shoulder pain after fall with Left proximal humerus fx. 24H EVENTS - no overnight events - neurology has now signed off SUBJECTIVE She endorses ongoing severe arm pain right greater than left which is unchanged over the last week.She feels the wound on her right elbow is so tender to even light palpation OBJECTIVE DATA VITALS T 97.5 ??F (36.4 ??C) HR 72 BP (!) 90/45 RR 18 SpO2 95 % 4 L/min O2 Device: Nasal cannula 62.8 kg (138 lb 6.4 oz) Body mass index is 21.04 kg/m??. PHYSICAL EXAM General: Appears comfortable with intermittently in pain with movement of her shoulders. HEENT: No scleral icterus. No conjunctival injection. Pulmonary: No increased work of breathing, on 4 L NC. Lungs with no wheezing, rales. Cardiovascular: Regular rate and rhythm. No murmurs, gallops, or rubs. Abdominal: Soft, mildly distended, non-tender to palpation. Extremities: No lower extremity edema. Warm and well perfused. MSK: Pt with large area of bruising around left arm (within marked area) and improving with ROM intact at shoulder, limited at elbow due to pain. LUE with improved swelling with compression with cori wrapping. RUE with 2+ pitting edema in the proximal arm. Mild tenderness to palpation over right upper arm with c/d/I incision scar anteriorly + preserved ROM at shoulder, ROM limited over elbow due to pain. R wrist with bruising over R wrist, pain with flexion, improvement on extension--ROM intact though with pain. Psych: Alert and oriented. Normal affect. Lines: Helton in place LABS, MICROBIOLOGY and STUDIES reviewed in Epic. Pertinent Discussed in Assessment and Plan. ASSESSMENT & PLAN Mayra Craft is a 74 y.o. 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 S/p R shoulder IR aspiration 08/22 withno culture growth. Patient currently inpatient with continued pain control but can continue titration at SNF; Cpsine MRI reassuring. Med stable today for discharge to SNF. Acute problems: # Pain control # History of Opioid Use Disorder, on suboxone Pt with a history of opioid use disorder in setting of opioids for pancreatitis, recently started on suboxone (May). Requiring high amounts of opioids in this setting given her humerus fractureand post-R shoulder hemiarthroplasty. - Chronic pain consulted, appreciate recommendations - Continue suboxone, increased to 8-2 TID on 08/27 per chronic pain recommendations - Will uptitrate Lyrica to 100 twice daily - Added on methocarbamol 500 mg QID on 08/27 Prior Regimens: - S/p Morphine SATURATION DIVER 08/22-08/28 - currently requiring oxycodone 15 mg q4 PRN pain - IV acetaminophen for now, by pt request # Right Wrist Drop - ? Radial nerve palsy # UMN signs (bilateral leg spacticity, hyperreflex on upper) Pt with R wrist pain and difficulty with voluntary extension. Ortho examined on 08/28 and not concerned about septic wrist, but are concerned for possible nerve impingement. Neurology initially recommended MRI right brachial plexus, but after discussion with Neurology + Radiology, there will be significant artifact owing her her Right shoulder prosthesis and her Left sided PPM to the point of a non-diagnostic study; Discussed with radiology on 09/05 that a c-spine MRI would be possible; Logistically a CT C-spine for gross nerve impingement may be easier to evaluate. - 08/28 Right humerus XR with osteopenia but no fracture. - Neurology consult, defer MRI brachial plexus. - MRI C-spine ordered looking for significant cord impingement and was reassuring. # Access with CVC (08/27), removed 09/04 Pt with very difficult upper extremity access given RUE DVT + Left humerus proximal fracture and resulting edema. Given need for SATURATION DIVER + other intermittent IV medication needs, including electrolyte repletion + frequent lab draws, Had IR placed triple lumen CVC on 08/27. Removed on 09/04 in anticipation for discharge when accepted to rehab, though rehab late on day of admission then declined. - Right hand PIV placed 09/06. # Left proximal humerus comminuted transverse fracture s/p fall # Significant LUE edema Pt with a mechanical fall after misjudging where the toilet seat is and falling onto her L shoulder. Given persistent pain, presented to the ED. CT scan of L humerus showed acceptable alignment amenable to non-operative treatment with immobilization in a sling; however, pt unable to tolerate sling consistently with continued pain. Repeat LUE XR with interval callus formation and no new dislocation or fracture. - Ortho following, will plan for 1-2 week follow-up with L shoulder X-Ray LUE wrapped for compression due to edema with distal pulse, sensation, and motion checks every shift Re-engaged on 08/28 given continued pain, and significant swelling - Activity restrictions: can come out of the sling for gentle pendulum range of motion. She may usethe left upper extremity for light activity daily living but no heavy lifting more than 5 pounds (coffee cup weight bearing) - Pain control, see #Pain control as above - Appreciate OT evaluation # Right shoulder swelling/pain, c/f R shoulder septic arthritis # Chronic R rotator cuff arthropathy s/p R total shoulder arthroplasty 07/11/25, conversion to R shoulder hemiarthroplasty with glenoid and humeral implant on 08/01/25 # Chronic right shoulder dislocation Pt with increased R shoulder pain and swelling post-surgery on 08/01 w/concern for possible septic joint w/CRP of 293. Initially given antibiotics, but d/c'ed for IR procedure on 08/20 to increase yield of IR tap on 08/22. Joint cultures NGTD. X ray showing chronic anterior dislocation of the humeral head relative to the glenoid, ortho reviewed and no acute intervention required, and will follow-up OP (Dr. Goins). - See #Pain control as above # Acute on chronic hypoxic respiratory failure (bl 4L NC), acute now resolved. # Hospital Acquire Pneumonia # Leukocytosis, improved # Consolidative opacities in both lower lobes (from CT chest 08/19) # COPD without exacerbation Pt with noted consolidative opacities in both lower lobes from CT chest, initially w/o respiratory symptoms and baseline 4L NC. However, pt developed increased O2 requirements overnight, likely positional or 2/2 mucoid impaction; however, CXR still with evidence of PNA. Given pt was at rehab prior to current admission, treated recently for PNA with bactrim (08/01-08/10), and significant underlying lung disease, treated for HAP. On 08/25, pt lost IV access and her IV antibiotics were transitioned to PO linezolid + levofloxacin. Overall, given pt's clinical stability very low concern for true MRSA HAP despite + MRSA swab, completed course of HAP coverage with Levofloxacin. - Vanc/Cefepime 08/23 - 08/25, Linezolid 08/26, Levofloxacin 08/26 - 08/29 - ANALYTICAL DATA MINER consultation appreciated, ok for regular diet - Continue home Dulera + Spiriva, incentive kari # Urinary retention # Indwelling Helton with failed voiding trial 08/30 Pt with urinary retention this admission. Multifactorial, likely underlying pelvic floor dysfunction (pt was having trouble urinating prior to this hospitalization) + constipation from opioid use/decreased hydration + immobility. - Helton placed 08/25, TOV attempted on 08/29, unsuccessful; Helton replaced [] TI: Outpatient/Rehab TOV. # Acute Right axillary vein DVT, provoked. Pt with worsening R arm pain post-fall on L shoulder, w/increased swelling over right shoulder and lower arm. She was found on admission to have a new R axillary vein DVT. Heparin gtt bridged to Apixaban. - Apixaban 5mg BID started on 08/25, requires at least 3 months AC (Circa 11/23/25). Outpatient follow up. Chronic problems: # Chronic HFrEF Nt-proBNP was normal 125 on admission w/no signs/symptoms of volume overload. - on home lasix 20mg MW - entresto resumed 08/21 - daily weights, strict I&O # SSS s/p dcICD + NSVT: PVC burden of 10% on prior Zio. Continue Metop succinate 12.5 bid # Constipation: Senna/miralax scheduled + bisacodyl suppository PRN # Chronic iron deficiency anemia: Baseline hb 9-10s. Tsat 6% on 08/03. Continue po iron, Ensure Outpatient work up. # Moderate malnutrition: has lost >30lbs over last 6 months d/t poor appetite. multivitamins, ensure tid, nutrition consult. Need help with food due to b/l arm pain # Hypothyroidism - levothyroxine 50mg # Anxiety/depression - ativan 0.5 bid -> changed to BID PRN due to high dose opioid use, c/h paroxetine 20 # GERD - omeprazole 20mg daily # Hyperlipidemia - atorvastatin 20mg daily. . # Nonobstructive CAD - asa 81, stop while on therapeutic AC for now Core Bundle # PAML: complete # Nutrition/Hydration: Oral. # Functional status: Out of bed to chair with assist. # Lines/Tubes/Drains: CVC line . # VTE prophylaxis: N/A - patient is therapeutically anticoagulated # Contacts/HCP/Surrogate and Communication: Extended Emergency Contact Information Primary Emergency Contact: Ashanti Green Address: [address] [place] [id number] [place] Mobile Relation: Daughter Secondary Emergency Contact: Rory Craft Address: [id number] [place] [id number] [place] [address] Mobile Relation: Son # Advanced Care Planning: Full Code. Disposition Anticipated Disposition: snf facility. Anticipated Length of Stay: 1-2 days Barriers to Discharge: accepting rehab I have spent a total of 50 minutes on this clinical encounter reviewing the medical record, seeing and examining the patient, reviewing data, writing the note, placing orders, and communicating with the applicable medical and nursing teams. More than 50% of this time was spent on patient/family counseling. Moderate Chronic Malnutrition (present on admission) : Assessed - Severity based on ASPEN criteria as documented by the cad manager and is ordered for vitamin/mineral supplementation Katy Watson MD Section of Hospital Medicine [facility] Pager: [phone] * Jemima Jara, PT - 09/09/2025 12:59 PM EST PHYSICAL THERAPY PROGRESS NOTE Rehabilitation Services - Inpatient Physical Therapy Level of Care: Floor Interdisciplinary Recommendations PT Discharge rec: Rehab Movement Precautions: ROM, Bracing/Orthoses WB Status: LUE Weight Bearing : CCWB, no lifting >5#, sling at all times, ok for pendulums/gentle ROM RUE Weight Bearing : NWB, ROMAT Activity and Mobility Recommendations: [x]Patient is at high risk for deconditioning. Please maximize independence in ADLs and encourage frequent mobility including: Lift for all mobility including transfers to chair 3x/day [x]Patient is at risk for pressure injury. Please limit sitting time to one hour on standard air cushion given patient???s inability to effectively reposition in chair. [x]Patient is at risk for falls. Please use chair alarm when out of bed. [x]Patient is at risk for delirium. Please consider implementing strategies to reduce risk including: OOB to chair 3 day for all meals Familiar pictures and items within view News or nonverbal music on during daytime Lights on during day with shades UP Frequent Reorientation to clock, calendar, and window Encourage participation with ADLs Encourage family presence at bedside *For questions please check the patient???s care team for the most updated PT contact information [x]Updated medical status including labs, radiology, procedures and medications since previous visit reviewed - per neuro MRI cervical spine performed overnight. No clear cord signal abnormality. No significant cervical spinal stenosis Subjective: I was looking for you yesterday. I'm not sure I can do much today Patient-Stated Goal: none stated, agreeable to PT Objective: Hemodynamic Response/Aerobic Capacity Prior to session - vitals w/ RN: HR 70, BP 90/45, O2 91% 5L NC At end of session - vitals: HR 72, O2 95% 4L NC Asymptomatic t/o session, weaned back to baseline 4L NC, RN aware Functional Mobility Bed Mobility: Long Sitting: Minimal assistance (x2 to reposition pillows better behind back to allow for more upright positioning for pulmonary hygiene, upcoming lunch) Adaptive Equipment: None Transfers: Activity does not occur (deferred 2/2 hypotension reported by RN just prior to session as well as pain reported by pt) Gait: Activity does not occur Stairs: Activity does not occur Balance: Minimal assistance static long sitting in bed Pain: Does not numerically rate but endorsing bad pain at start of session upon this check writer entering room though pt was smiling and seemed to be comfortable appearing. Does not numerically rate pain. Location: BUE, R>L, especially at elbow and shoulder Quality: does not qualify Intervention: repositioning, RN aware, pre-medicated by RN, educated on non- medication pain management techniques, rest, therex, gentle ROM BUE - Pain medications received: tylenol 1000mg @1344, pregabalin 75mg @1004, oxycodone 15mg @0924 Limiting Symptoms: Pain, Anxiety/Fear, Precautions, Weakness Other Tests and Measures: Cognition: Level of Consciousness: Alert Orientation Level: Oriented X4 Following Directions: Follows all directions without difficulty Success rate following directions: 100% of the time Patient Behaviors/Mood: Cooperative, Anxious Memory: Intact (recalls therapists from previous visits, verbally recalls precautions) Attention to Tasks: Attends to task, Attends to conversation Safety Awareness: Full awareness of safety precautions, Full awareness of deficits, Full awareness of errors made (verbalizes good understanding of safety precautions/recommendations though continuesto decline wearing sling / cuff and collar) Insight: Fair Additional Tests: Declines to wear R splint and L cuff and collar t/o session despite education, encouragement Interventional ROM RUE: very limited PROM shoulder abduction, very limited PROM shoulder flexion, ~90 deg PROM elbow flexion, almost full AAROM wrist extension, almost full PROM wrist flexion LUE: limited elbow flexion AROM >90 deg <full, full AROM wrist extension/flexion BLE: neutral knee extension, >45 <90 deg hip flexion, full knee flexion Standardized Tests and Outcome Measures: NT Intervention: Therapeutic activities Exercise prescription Therapeutic exercise: Active LUE, BLE therex x10 reps each. Passive RUE therex x5-10 reps each Energy conservation Interventional ROM Patient/Caregiver Education RE: [x]Role of PT [x]PT plan of care [x]Fall risk reduction [x]Discharge recommendations [x]Mobility Recommendations []Other: []Rodeo Clown utilized for session Team Communication: Communicated with [x]RN []MD []OT []CM RE: Patient status, d/c recs, mobility recs, pain, repositioning, HDR []Patient discussed at interdisciplinary team rounds. Pt left supine in bed with all needs in reach, repositioned for more upright positioning for pulmonary hygiene for upcoming lunch, weaned back to baseline 4L DANIEL, RN aware Assessment Clinical Impression: Mayra Craft is a 74 y.o. female with a history of past medical history significant for MDD/CHRIS, opioid use disorder in sustained remission, SSS s/p dcICD, HFrEF (ef 40%) 2/2 niCM, moderate MR, NSVT with 10% PVC burden, non-obstructive CAD (CTA 2021). 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 recent hospitalization 08/01-08/10 with SOB felt comboof slight CHF exacerbation and COPDE/PNA mucoid impaction, dced to SNF presented with worsening b/lshoulder pain after fall at SNF 4 days ago found to have L humeral Fx and RUE DVT. S/p R shoulder IR aspiration 08/22 with no culture growth. C/c/b R wrist drop w/ MRI c/s showing no clear cord signal abnormality or significant c/s stenosis. Pt is making steady progress as demonstrated by improved ROM tolerance (active LUE ROM/therex, allowed PROM RUE ROM/therex) as compared to previous visit. Standing deferred 2/2 hypotension, increasedO2 requirement just prior to session per RN report. Pt continues to function below baseline limited by the primary impairment/activity limitation of impaired activity tolerance which is likely due to pain from ignacio shoulders and recent falls. Pt also continues to decline use of R splint and L cuff and collar despite education, encouragement to wear per orders and for healing purposes. At this time, recommend return to rehab to optimize function prior to returning home. Pt is agreeable to this recommendation. Acute PT will continue to follow to progress as able while admitted to [facility]for [facility] reasons. Treatment Plan: Pulmonary hygiene, Balance training, Functional mobility training, Interventional ROM, Transfer training, Patient education, Pain management strategies Patient agrees with the above goals and is willing to participate in the rehabilitation program: Yes Time: 8584-3089 Physical Therapist Name: Jemima Jara PT, DPT Physical Therapist Pager: [phone] Physical Therapist License Number: [id number] * Carlos Alberto Benítez MD - 09/08/2025 10:10 AM EST Images from the original note were not included. [facility] Department of Neurology NEUROLOGY ATTENDING CONSULT PROGRESS NOTE Date of Service: 09/08/2025 Patient: Mayra Craft Interval Events: MRI cervical spine performed overnight. No clear cord signal abnormality. No significant cervical spinal stenosis. Subjective: No changes since we last met. Continues to report significant arm pain, right more thanleft. Objective: BP (!) 145/75 (BP Location: Left leg, Patient Position: Lying) Pulse 70 Temp 97.8 ??F (36.6 ??C) (Oral) Resp 16 Ht 1.727 m (5' 8 ) Wt 64.8 kg (142 lb 14.4 oz) SpO2 97% BMI 21.73 kg/m?? . Awake, alert, able to relay history without difficulty. No cranial nerve deficits. There was persistent edema in both arms, particularly around the elbows and the dependent portions of the forearms. Confrontation testing was significant limited by pain. Wrist extension was barely 3/5 asshe was able to extend the wrist to the horizontal position but not past it. Finger extension was 2/5 and limited by pain. B12 667. Assessment and Plan: Her exam remains significantly limited by pain, though there she is also clearly weak in the right arm. Though radial nerve palsy is certainly possible (either traumatic or related to stretch/compression injury following most recent should surgery), a brachial plexopathy (due to similar mechanisms)is also possible. MRI of the brachial plexus was previously recommended but, due to metal in the rig ht shoulder, ultimately deferred given concern for associated artifact. MRI of the cervical spine did not show any significant cervical spinal stenosis. At this point, would recommend intensive physical therapy. To consider EMG/NCS in the outpatient setting depending on her clinical trajectory (given significant edema and pain, EMG/NCS at this time would likely be of very limited value). We will sign off at this time. Please reach out with any questions or concerns. Carlos Alberto Benítez MD I spent 35 minutes directly and personally assessing the patient by, but not limited to, obtaining a history; examining the patient; reviewing data; providing recommendations for treatment, evaluation of patient's response to treatment; documentation of findings; and discussions with the patient and their caregivers, the primary team as well as other consultants. * Jorge Piña MD - 09/08/2025 8:46 AM EST Images from the original note were not included. [facility] Section of Hospital Medicine [facility] Patient: Mayra Craft Admission Date: 08/19/2025 Length of Stay: 19 PCP: Vanessa Culver MD Attending: Jorge Piña MD Chief Complaint: Originally Shoulder pain after fall with Left proximal humerus fx. 24H EVENTS - went for MRI spine overnight SUBJECTIVE Mayra is fine this morning, she is relieved to hear the results of her C- MRI looked good. I spoke with neurology in person about these results. She is very motivated- She says she wants to stand before she leaves the hospital. I tempered her expectations somewhat given the fact that she has been immobile for some time and reminded her that her strength did not falter overnight nor will it come back overnight and that rehab is the place foeongoing recovery and strengthening; She is open to that as long as it is not a care one facility given her poor recent experience. She will have her pancreatic replacement with her so that should be lesser of an issue. OBJECTIVE DATA VITALS T 97.8 ??F (36.6 ??C) HR 70 BP (!) 145/75 RR 16 SpO2 97 % 4 L/min O2 Device: Nasal cannula 64.8 kg (142 lb 14.4 oz) Body mass index is 21.73 kg/m??. PHYSICAL EXAM General: Appears comfortable with intermittently in pain with movement of her shoulders. HEENT: No scleral icterus. No conjunctival injection. Pulmonary: No increased work of breathing, on 4 L NC. Lungs with no wheezing, rales. Cardiovascular: Regular rate and rhythm. No murmurs, gallops, or rubs. Abdominal: Soft, mildly distended, non-tender to palpation. Extremities: No lower extremity edema. Warm and well perfused. MSK: Pt with large area of bruising around left arm (within marked area) and improving with ROM intact at shoulder, limited at elbow due to pain. LUE with improved swelling with compression with cori wrapping. RUE with 2+ pitting edema in the proximal arm. Mild tenderness to palpation over right upper arm with c/d/I incision scar anteriorly + preserved ROM at shoulder, ROM limited over elbow due to pain. R wrist with bruising over R wrist, pain with flexion, improvement on extension--ROM intact though with pain. Neuro: Decreased bulk noted in both thighs and quadriceps as well as intrinsic foot muscles. There was marked spasticity in the legs, with each foot rolling en bloc with the rest of the leg. There were suppressible movements of the left leg that appeared rhythmic. Confrontation testing was significant limited by pain. With this limitation, she was unable to attempt abduction of either shoulder. On the right arm, biceps was 5/5, triceps 4-/5, brachioradialis 4/5. Wrist extension was 2 to 3 as she was able to extend the wrist to the horizontal position but not past it. Finger extension was 2/5 and IO 3/5. She had significant APB weakness as well on the right, likely 2/5. There were fasciculations inFID bilaterally. She was diffusely hyper-reflexic with pectoral jerks and easily elicited biceps and brachioradialis reflexes bilaterally. No Orosco's. Crossed adductors with absent Achilles for me.No clonus. The right toe was held in the extensor position. She reports normal light touch sensation throughout both arms. Psych: Alert and oriented. Normal affect. Lines: Helton in place LABS, MICROBIOLOGY and STUDIES reviewed in [facility]. Pertinent Discussed in Assessment and Plan. ASSESSMENT & PLAN Mayra Craft is a 74 y.o. 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 S/p R shoulder IR aspiration 08/22 withno culture growth. Patient currently inpatient with continued pain control but can continue titration at SNF; Cpsine MRI reassuring. Med stable today for discharge to SNF. Acute problems: # Pain control # History of Opioid Use Disorder, on suboxone Pt with a history of opioid use disorder in setting of opioids for pancreatitis, recently started on suboxone (May). Requiring high amounts of opioids in this setting given her humerus fractureand post-R shoulder hemiarthroplasty. - Chronic pain consulted, appreciate recommendations - Continue suboxone, increased to 8-2 TID on 08/27 per chronic pain recommendations - Started Lyrica 75 mg BID 08/26 - Added on methocarbamol 500 mg QID on 08/27 Prior Regimens: - S/p Morphine SATURATION DIVER 08/22-08/28 - Switched to Morphine 60 mg PO Q4H PRN + Morphine IV -> switched to PO oxycodone 10 mg PO q4h PRN -> increased to 15mg q4H PRN on 09/04. - IV acetaminophen for now, by pt request # Right Wrist Drop - ? Radial nerve palsy # UMN signs (bilateral leg spacticity, hyperreflex on upper) Pt with R wrist pain and difficulty with voluntary extension. Ortho examined on 08/28 and not concerned about septic wrist, but are concerned for possible nerve impingement. Neurology initially recommended MRI right brachial plexus, but after discussion with Neurology + Radiology, there will be significant artifact owing her her Right shoulder prosthesis and her Left sided PPM to the point of a non-diagnostic study; Discussed with radiology on 09/05 that a c-spine MRI would be possible; Logistically a CT C-spine for gross nerve impingement may be easier to evaluate. - 08/28 Right humerus XR with osteopenia but no fracture. - Neurology consult, defer MRI brachial plexus. - MRI C-spine ordered looking for significant cord impingement and was reassuring. # Access with CVC (08/27), removed 09/04 Pt with very difficult upper extremity access given RUE DVT + Left humerus proximal fracture and resulting edema. Given need for SATURATION DIVER + other intermittent IV medication needs, including electrolyte repletion + frequent lab draws, Had IR placed triple lumen CVC on 08/27. Removed on 09/04 in anticipation for discharge when accepted to rehab, though rehab late on day of admission then declined. - Right hand PIV placed 09/06. # Left proximal humerus comminuted transverse fracture s/p fall # Significant LUE edema Pt with a mechanical fall after misjudging where the toilet seat is and falling onto her L shoulder. Given persistent pain, presented to the ED. CT scan of L humerus showed acceptable alignment amenable to non-operative treatment with immobilization in a sling; however, pt unable to tolerate sling consistently with continued pain. Repeat LUE XR with interval callus formation and no new dislocation or fracture. - Ortho following, will plan for 1-2 week follow-up with L shoulder X-Ray LUE wrapped for compression due to edema with distal pulse, sensation, and motion checks every shift Re-engaged on 08/28 given continued pain, and significant swelling - Activity restrictions: can come out of the sling for gentle pendulum range of motion. She may usethe left upper extremity for light activity daily living but no heavy lifting more than 5 pounds (coffee cup weight bearing) - Pain control, see #Pain control as above - Appreciate OT evaluation # Right shoulder swelling/pain, c/f R shoulder septic arthritis # Chronic R rotator cuff arthropathy s/p R total shoulder arthroplasty 07/11/25, conversion to R shoulder hemiarthroplasty with glenoid and humeral implant on 08/01/25 # Chronic right shoulder dislocation Pt with increased R shoulder pain and swelling post-surgery on 08/01 w/concern for possible septic joint w/CRP of 293. Initially given antibiotics, but d/c'ed for IR procedure on 08/20 to increase yield of IR tap on 08/22. Joint cultures NGTD. X ray showing chronic anterior dislocation of the humeral head relative to the glenoid, ortho reviewed and no acute intervention required, and will follow-up OP (Dr. Goins). - See #Pain control as above # Acute on chronic hypoxic respiratory failure (bl 4L NC), acute now resolved. # Hospital Acquire Pneumonia # Leukocytosis, improved # Consolidative opacities in both lower lobes (from CT chest 08/19) # COPD without exacerbation Pt with noted consolidative opacities in both lower lobes from CT chest, initially w/o respiratory symptoms and baseline 4L NC. However, pt developed increased O2 requirements overnight, likely positional or 2/2 mucoid impaction; however, CXR still with evidence of PNA. Given pt was at rehab prior to current admission, treated recently for PNA with bactrim (08/01-08/10), and significant underlying lung disease, treated for HAP. On 08/25, pt lost IV access and her IV antibiotics were transitioned to PO linezolid + levofloxacin. Overall, given pt's clinical stability very low concern for true MRSA HAP despite + MRSA swab, completed course of HAP coverage with Levofloxacin. - Vanc/Cefepime 08/23 - 08/25, Linezolid 08/26, Levofloxacin 08/26 - 08/29 - ANALYTICAL DATA MINER consultation appreciated, ok for regular diet - Continue home Dulera + Spiriva, incentive kari # Urinary retention # Indwelling Helton with failed voiding trial 08/30 Pt with urinary retention this admission. Multifactorial, likely underlying pelvic floor dysfunction (pt was having trouble urinating prior to this hospitalization) + constipation from opioid use/decreased hydration + immobility. - Helton placed 08/25, TOV attempted on 08/29, unsuccessful; Helton replaced [] TI: Outpatient/Rehab TOV. # Acute Right axillary vein DVT, provoked. Pt with worsening R arm pain post-fall on L shoulder, w/increased swelling over right shoulder and lower arm. She was found on admission to have a new R axillary vein DVT. Heparin gtt bridged to Apixaban. - Apixaban 5mg BID started on 08/25, requires at least 3 months AC (Circa 11/23/25). Outpatient follow up. Chronic problems: # Chronic HFrEF Nt-proBNP was normal 125 on admission w/no signs/symptoms of volume overload. - on home lasix 20mg MW - entresto resumed 08/21 - daily weights, strict I&O # SSS s/p dcICD + NSVT: PVC burden of 10% on prior Zio. Continue Metop succinate 12.5 bid # Constipation: Senna/miralax scheduled + bisacodyl suppository PRN # Chronic iron deficiency anemia: Baseline hb 9-10s. Tsat 6% on 08/03. Continue po iron, Ensure Outpatient work up. # Moderate malnutrition: has lost >30lbs over last 6 months d/t poor appetite. multivitamins, ensure tid, nutrition consult. Need help with food due to b/l arm pain # Hypothyroidism - levothyroxine 50mg # Anxiety/depression - ativan 0.5 bid -> changed to BID PRN due to high dose opioid use, c/h paroxetine 20 # GERD - omeprazole 20mg daily # Hyperlipidemia - atorvastatin 20mg daily. . # Nonobstructive CAD - asa 81, stop while on therapeutic AC for now Core Bundle # PAML: complete # Nutrition/Hydration: Oral. # Functional status: Out of bed to chair with assist. # Lines/Tubes/Drains: CVC line . # VTE prophylaxis: N/A - patient is therapeutically anticoagulated # Contacts/HCP/Surrogate and Communication: Extended Emergency Contact Information Primary Emergency Contact: Ashanti Green Address: [address] [place] [phone] [place] Mobile Relation: Daughter Secondary Emergency Contact: Rory Craft Address: [address] [place] [id number] [place] [address] Mobile Relation: Son # Advanced Care Planning: Full Code. Disposition Anticipated Disposition: snf facility. Anticipated Length of Stay: 1-2 days Barriers to Discharge: pending C-spine imaging I have spent a total of 51 minutes on this clinical encounter reviewing the medical record, seeing and examining the patient, reviewing data, writing the note, placing orders, and communicating with the applicable medical and nursing teams. More than 50% of this time was spent on patient/family counseling. Complexity Bundle Hyponatremia (present on admission) : Labs repeated - Sodium of 130 on 08/27/2025 Fluid overload: Received IV Diuretics - IV diuretics given on 09/03/2025 Anemia secondary to chronic disease and inflammation (present on admission) : Labs repeated - Hemoglobin of 8.2 on 09/04/2025 Acute on Chronic Systolic Heart Failure : Treating Moderate Chronic Malnutrition (present on admission) : Assessed - Severity based on ASPEN criteria as documented by the cad manager and is ordered for vitamin/mineral supplementation Jorge Piña MD Section of Hospital Medicine [facility] Pager: [phone] * Jemima Marek, PT - 09/07/2025 4:59 PM EST PHYSICAL THERAPY RE EVALUATION Rehabilitation Services - Inpatient Physical Therapy Level of Care: Floor Interdisciplinary Recommendations PT Discharge rec: Rehab Movement Precautions: ROM, Bracing/Orthoses WB Status: LUE Weight Bearing : CCWB, no lifting >5#, sling at all times, ok for pendulums/gentle ROM RUE Weight Bearing : NWB, ROMAT Activity and Mobility Recommendations: [x]Patient is at high risk for deconditioning. Please maximize independence in ADLs and encourage frequent mobility including: Lift for all mobility including transfers to chair 3x/day [x]Patient is at risk for pressure injury. Please limit sitting time to one hour on standard air cushion given patient???s inability to effectively reposition in chair. [x]Patient is at risk for falls. Please use chair alarm when out of bed. [x]Patient is at risk for delirium. Please consider implementing strategies to reduce risk including: OOB to chair 3 day for all meals Familiar pictures and items within view News or nonverbal music on during daytime Lights on during day with shades UP Frequent Reorientation to clock, calendar, and window Encourage participation with ADLs Encourage family presence at bedside *For questions please check the patient???s care team for the most updated PT contact information [x]HPI/Subjective Complaint, Past Medical/Surgical History, Medications, Radiology, and Labs reviewed Social History/Prior Function *info taken from eval, reconfirmed w/ pt today Home Environment Type of Home: House Home Layout: One level, Stairs to enter with rails (4-5 YUVAL, then patient lives on first level of home) Bathroom Shower/Tub: Tub only Bathroom Toilet: Standard Home Equipment: Cane, Oxygen (4L O2) Fall History Number of Falls (last 12 months): 3 Cause of Fall(s): Unable to recall the cause of her recent falls Fall History Reported By: Self Prior Function Leisure activities: Spending time with her dogs, being outside Lives alone Receives Help From: Child(essie) (has 2 supportive daughters who live nearby) Provides Care/Help To: Pet (has four dogs) Current Services: None Mobility/ADL Assistance: Independent (amb with SC) Homemaking Assistance: Needs assistance (Needs assistance family members perform IADLs including cooking, grocery shopping, and cleaning) Transportation: Requires assistance from family/friends Subjective: You guys [PT, OT] always come so late in the day when I'm tired after doing so many things today Patient-Stated Goal: to take steps/walk further than the chair this weekend, to not have too much anxiety and get through the entire MRI tonight, to not fall again Objective: Cognition: Level of Consciousness: Alert Orientation Level: Oriented X4 Following Directions: Follows all directions without difficulty Success rate following directions: 100% of the time Patient Behaviors/Mood: Cooperative, Anxious (baseline has restless legs, but having increased rebounding of BLE this session in anticipation of MRI tonight. Talked through her baseline anxiety and told me about her claustrophobia and past failed MRIs. Also talked through again her recent fall at rehab leading to her L shoulder injury and how she sees that image in her mind frequently t/o day. Talked about reframing negative thoughts/images into positive imagery and picturing how she has in thepast been able to walk and use her goals of walking again in the next few days as motivation) Memory: Impaired (requires reminders for ROM precautions BUE) Attention to Tasks: Attends to task, Attends to conversation Safety Awareness: Full awareness of safety precautions, Full awareness of deficits, Full awareness of errors made (continues to decline wearing sling / cuff and collar despite continued encouragement, education) Insight: Fair Hemodynamic Response/Aerobic Capacity Supine p IS use: HR 89, O2 98% 4L NC Supine p acapella use: HR 90, O2 98% 4L NC Supine p BUE therex: HR 68, O2 98% 4L NC Asymptomatic, RN aware [x]Full systems review completed and found to be within normal limits with the following exceptions: Respiratory: Non-labored, even breathing pattern. On her baseline 4L NC Re-encouraged use and expected frequency of IS, acapella. Left on bedside table. Performed IS x15 reps w/ max 1500mL. Performed acapella x10 reps Moderately strong, infrequent, non-productive spontaneous cough Integumentary: C/D/I, consistent with LDA Peripheral Edema: BUE edema noted Vascular: Extremities warm and well perfused appearing Sensation: Experiences x5-10 second bout of LUE tingling during session at rest, resolved spontaneously as well, RN aware, otherwise intact sensation to light touch Posture: Not formally assessed as pt remained supine in bed t/o session Range Of Motion: Grossly WFL BLE Full L wrist extension/flexion AROM Limited L elbow flexion AAROM Pt defers RUE A/PROM (is ROMAT) Muscle Performance: Grossly WFL BLE (demos >/= 3+/5 throughout via bridging in bed and SLR therex) BUE not assessed 2/2 ROM precautions Motor Function: Moves all extremities in isolation though has noticeably increased difficulty moving RUE as compared to LUE Pain: Reports improved pain today as compared to yesterday. Reports ongoing pain in BUE, R>L, does not numerically rate. Reports pain in ignacio elbows, R>L, education on pressure relief strategiesand wearing sling/cuff+collar though continues declining use and wearing dressings over ignacio elbows Location: ignacio shoulders and elbow, R>L Quality: R as it's useless; just forget about it , L as better, but still really there and reallypainful Intervention: repositioning, coordinated with RN for pain medication, notified RN Functional Mobility - Pt remained in supine t/o session, declines OOB or EOB mobility despite education/encouragement. Boosted w/ Ax2 at end of session to reposition better in bed. Able to long sit in bed x3 to allow for pillow repositioning behind back Bed Mobility: Long sits x3. Declines mobilizing to EOB Transfers: Activity does not occur, declines STS or tx to chair Gait: Activity does not occur Stairs: Activity does not occur (has YUVAL home) Balance: CGA-ModA to stay long sitting for pillow adjustments in bed Limiting Symptoms: Pain, Precautions, Non-adherence to sling/cuff+collar Intervention: Pulmonary hygiene - IS, acapella, cough Continuous O2 monitoring Therapeutic exercise - SLR x10 ignacio, long sitting x3, knee bends x10 ignacio. L wrist flexion/extension x10. L elbow flexion AAROM x5 Interventional ROM Exercise prescription - therex 3x/day to maintain BLE strength PT Re-eval Patient/Caregiver Education RE: [x]Role of PT [x]PT plan of care [x]Fall risk reduction [x]Discharge recommendations [x]Mobility Recommendations []Other: []Rodeo Clown utilized for session Team Communication: Communicated with [x]RN [x]MD [x]OT [x]CM RE: Patient status, d/c recs, mobility recs [x]Patient discussed at interdisciplinary team rounds. Pt left supine with all needs in reach, RN aware Assessment Impairments of Body Functions and Structures, Activity Limitations and Participation Restrictions: Decreased range of motion, Decreased strength/Muscular endurance, Knowledge deficit, Pain, Decreased ADL status Bed mobility, Transfers, Ambulation, Stair negotiation, Deconditioning Clinical Impression/Prognosis: Mayra Craft is a 74 y.o. female with past medical history significant for MDD/CHRIS, opioid use disorder in sustained remission, SSS s/p dcICD, HFrEF (ef 40%) 2/2 niCM,moderate MR, NSVT with 10% PVC burden, non-obstructive CAD (CTA 2021). 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 Pt had a recent hospitalization 08/01-08/10 with SOB feltto be combo of slight CHF exacerbation and COPDE/PNA mucoid impaction, d/c'd to SNF but re-presented with worsening b/l shoulder pain after fall at SNF and f/t/h L humeral Fx and RUE DVT. Since initial eval, pt continues to be functioning well below baseline limited by impairments in body structure and function as listed above. 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 Pt had met 2/4 goals created on initial eval. Updated goals below. Pt continues to decline donning sling/cuff+collar despite heavy education, encouragement. Anxiety continues to be a barrier to functional progression as well at this time; active listening + encouragement + positive imagery trainingprovided this session. At this time, recommend return to short term rehab to optimize function prior to returning home. Acute PT will continue to follow to progress as able while admitted to for medical reasons. Patient has good potential to return to [facility] based on positive prognostic indicators including . Progress may be slowed by potentially limiting prognostic indicators including OLD Goals: 2 weeks - Pt will verbalize LUE precautions indep (not yet met) - Pt will instruct staff member to don splint with appropriate steps indep (not met) - Pt will perform sup>sit with minAx2 (met) - Pt will perform sit>stand with minaX2 (met) NEW Goals: 2 weeks - Pt will verbalize LUE precautions indep - Pt will instruct staff member to don splint with appropriate steps indep - Pt will perform sup>sit with supervision - Pt will perform sit>stand with CGA x2 person - Pt will tx to chair w/ CGA x2 person - Pt will amb 10ft w/ CGA x2 person Plan: Treatment/Interventions: Balance training, Bed mobility, Pulmonary hygiene, Transfer training, painmanagement strategies, Patient education, Therapeutic exercise Anticipated In Hospital Frequency: 1-5x/week Patient agrees with the above goals and is willing to participate in the rehabilitation program: Yes Time: [id number] Physical Therapist Name: Jemima Jara PT, DPT Physical Therapist Pager: [phone] Physical Therapist License Number: [id number] * Jorge Piña MD - 09/07/2025 4:40 PM EST Physician Clarification The following most accurately represents the acuity of the documented HFrEF: Chronic * Jorge Piña MD - 09/07/2025 8:25 AM EST Images from the original note were not included. [facility] Section of Hospital Medicine [facility] Progress Note Patient: Mayra Craft Admission Date: 08/19/2025 Length of Stay: 18 PCP: Vanessa Culver MD Attending: Jorge Piña MD Chief Complaint: Originally Shoulder pain after fall with Left proximal humerus fx. 24H EVENTS - NAONE SUBJECTIVE Mayra continues to be worried about her mobility decline and rehab, discussed that rehab is a good disposition to help continue to work back independence in function. bMRI has been pending availability. This is her only discharge barrier at present. There is tentatively a time slot at 8pm this evening, working on staffing to accommodate travel to [place], nursing aware. She will have her enzyme replacements with her at time of discharge. OBJECTIVE DATA VITALS T 97.8 ??F (36.6 ??C) HR 58 BP 117/58 RR 17 SpO2 94 % 4 L/min O2 Device: None (Room air) 61.5 kg (135 lb 9.6 oz) Body mass index is 20.62 kg/m??. PHYSICAL EXAM General: Appears comfortable with intermittently in pain with movement of her shoulders. HEENT: No scleral icterus. No conjunctival injection. Pulmonary: No increased work of breathing, on 4 L NC. Lungs with no wheezing, rales. Cardiovascular: Regular rate and rhythm. No murmurs, gallops, or rubs. Abdominal: Soft, mildly distended, non-tender to palpation. Extremities: No lower extremity edema. Warm and well perfused. MSK: Pt with large area of bruising around left arm (within marked area) and improving with ROM intact at shoulder, limited at elbow due to pain. LUE with improved swelling with compression with cori wrapping. RUE with 2+ pitting edema in the proximal arm. Mild tenderness to palpation over right upper arm with c/d/I incision scar anteriorly + preserved ROM at shoulder, ROM limited over elbow due to pain. R wrist with bruising over R wrist, pain with flexion, improvement on extension--ROM intact though with pain. Neuro: Decreased bulk noted in both thighs and quadriceps as well as intrinsic foot muscles. There was marked spasticity in the legs, with each foot rolling en bloc with the rest of the leg. There were suppressible movements of the left leg that appeared rhythmic. Confrontation testing was significant limited by pain. With this limitation, she was unable to attempt abduction of either shoulder. On the right arm, biceps was 5/5, triceps 4-/5, brachioradialis 4/5. Wrist extension was 2 to 3 as she was able to extend the wrist to the horizontal position but not past it. Finger extension was 2/5 and IO 3/5. She had significant APB weakness as well on the right, likely 2/5. There were fasciculations inFID bilaterally. She was diffusely hyper-reflexic with pectoral jerks and easily elicited biceps and brachioradialis reflexes bilaterally. No Orosco's. Crossed adductors with absent Achilles for me.No clonus. The right toe was held in the extensor position. She reports normal light touch sensation throughout both arms. Psych: Alert and oriented. Normal affect. Lines: Helton in place LABS, MICROBIOLOGY and STUDIES reviewed in [facility]. Pertinent Discussed in Assessment and Plan. ASSESSMENT & PLAN Mayra Craft is a 74 y.o. 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 S/p R shoulder IR aspiration 08/22 withno culture growth. Patient currently inpatient with continued pain control but can continue titration at SNF; Neurology would like to obtain MRI imaging of the c-spine to rule out myelo neuropathic process that would require inpatient management. Acute problems: # Pain control # History of Opioid Use Disorder, on suboxone Pt with a history of opioid use disorder in setting of opioids for pancreatitis, recently started on suboxone (May). Requiring high amounts of opioids in this setting given her humerus fractureand post-R shoulder hemiarthroplasty. - Chronic pain consulted, appreciate recommendations - Continue suboxone, increased to 8-2 TID on 08/27 per chronic pain recommendations - Started Lyrica 75 mg BID 08/26 - Added on methocarbamol 500 mg QID on 08/27 Prior Regimens: - S/p Morphine SATURATION DIVER 08/22-08/28 - Switched to Morphine 60 mg PO Q4H PRN + Morphine IV -> switched to PO oxycodone 10 mg PO q4h PRN -> increased to 15mg q4H PRN on 09/04. - IV acetaminophen for now, by pt request # Right Wrist Drop - ? Radial nerve palsy # UMN signs (bilateral leg spacticity, hyperreflex on upper) Pt with R wrist pain and difficulty with voluntary extension. Ortho examined on 08/28 and not concerned about septic wrist, but are concerned for possible nerve impingement. Neurology initially recommended MRI right brachial plexus, but after discussion with Neurology + Radiology, there will be significant artifact owing her her Right shoulder prosthesis and her Left sided PPM to the point of a non-diagnostic study; Discussed with radiology on 09/05 that a c-spine MRI would be possible; Logistically a CT C-spine for gross nerve impingement may be easier to evaluate. - 08/28 Right humerus XR with osteopenia but no fracture. - Neurology consult, defer MRI brachial plexus. - MRI C-spine ordered looking for significant cord impingement. # Access with CVC (08/27), removed 09/04 Pt with very difficult upper extremity access given RUE DVT + Left humerus proximal fracture and resulting edema. Given need for SATURATION DIVER + other intermittent IV medication needs, including electrolyte repletion + frequent lab draws, Had IR placed triple lumen CVC on 08/27. Removed on 09/04 in anticipation for discharge when accepted to rehab, though rehab late on day of admission then declined. - Right hand PIV placed 09/06. # Left proximal humerus comminuted transverse fracture s/p fall # Significant LUE edema Pt with a mechanical fall after misjudging where the toilet seat is and falling onto her L shoulder. Given persistent pain, presented to the ED. CT scan of L humerus showed acceptable alignment amenable to non-operative treatment with immobilization in a sling; however, pt unable to tolerate sling consistently with continued pain. Repeat LUE XR with interval callus formation and no new dislocation or fracture. - Ortho following, will plan for 1-2 week follow-up with L shoulder X-Ray LUE wrapped for compression due to edema with distal pulse, sensation, and motion checks every shift Re-engaged on 08/28 given continued pain, and significant swelling - Activity restrictions: can come out of the sling for gentle pendulum range of motion. She may usethe left upper extremity for light activity daily living but no heavy lifting more than 5 pounds (coffee cup weight bearing) - Pain control, see #Pain control as above - Appreciate OT evaluation # Right shoulder swelling/pain, c/f R shoulder septic arthritis # Chronic R rotator cuff arthropathy s/p R total shoulder arthroplasty 07/11/25, conversion to R shoulder hemiarthroplasty with glenoid and humeral implant on 08/01/25 # Chronic right shoulder dislocation Pt with increased R shoulder pain and swelling post-surgery on 08/01 w/concern for possible septic joint w/CRP of 293. Initially given antibiotics, but d/c'ed for IR procedure on 08/20 to increase yield of IR tap on 08/22. Joint cultures NGTD. X ray showing chronic anterior dislocation of the humeral head relative to the glenoid, ortho reviewed and no acute intervention required, and will follow-up OP (Dr. Goins). - See #Pain control as above # Acute on chronic hypoxic respiratory failure (bl 4L NC) # Hospital Acquire Pneumonia # Leukocytosis, improved # Consolidative opacities in both lower lobes (from CT chest 08/19) # COPD without exacerbation Pt with noted consolidative opacities in both lower lobes from CT chest, initially w/o respiratory symptoms and baseline 4L NC. However, pt developed increased O2 requirements overnight, likely positional or 2/2 mucoid impaction; however, CXR still with evidence of PNA. Given pt was at rehab prior to current admission, treated recently for PNA with bactrim (08/01-08/10), and significant underlying lung disease, treated for HAP. On 08/25, pt lost IV access and her IV antibiotics were transitioned to PO linezolid + levofloxacin. Overall, given pt's clinical stability very low concern for true MRSA HAP despite + MRSA swab, completed course of HAP coverage with Levofloxacin. - Vanc/Cefepime 08/23 - 08/25, Linezolid 08/26, Levofloxacin 08/26 - 08/29 - ANALYTICAL DATA MINER consultation appreciated, ok for regular diet - Continue home Dulera + Spiriva, incentive kari # Urinary retention # Indwelling Helton with failed voiding trial 08/30 Pt with urinary retention this admission. Multifactorial, likely underlying pelvic floor dysfunction (pt was having trouble urinating prior to this hospitalization) + constipation from opioid use/decreased hydration + immobility. - Helton placed 08/25, TOV attempted on 08/29, unsuccessful; Helton replaced [] TI: Outpatient/Rehab TOV. # Acute Right axillary vein DVT, provoked. Pt with worsening R arm pain post-fall on L shoulder, w/increased swelling over right shoulder and lower arm. She was found on admission to have a new R axillary vein DVT. Heparin gtt bridged to Apixaban. - Apixaban 5mg BID started on 08/25, requires at least 3 months AC (Circa 11/23/25). Outpatient follow up. Chronic problems: # Chronic HFrEF Nt-proBNP was normal 125 on admission w/no signs/symptoms of volume overload. - on home lasix 20mg MW - entresto resumed 08/21 - daily weights, strict I&O # SSS s/p dcICD + NSVT: PVC burden of 10% on prior Zio. Continue Metop succinate 12.5 bid # Constipation: Senna/miralax scheduled + bisacodyl suppository PRN # Chronic iron deficiency anemia: Baseline hb 9-10s. Tsat 6% on 08/03. Continue po iron, Ensure Outpatient work up. # Moderate malnutrition: has lost >30lbs over last 6 months d/t poor appetite. multivitamins, ensure tid, nutrition consult. Need help with food due to b/l arm pain # Hypothyroidism - levothyroxine 50mg # Anxiety/depression - ativan 0.5 bid -> changed to BID PRN due to high dose opioid use, c/h paroxetine 20 # GERD - omeprazole 20mg daily # Hyperlipidemia - atorvastatin 20mg daily. . # Nonobstructive CAD - asa 81, stop while on therapeutic AC for now Core Bundle # PAML: complete # Nutrition/Hydration: Oral. # Functional status: Out of bed to chair with assist. # Lines/Tubes/Drains: CVC line . # VTE prophylaxis: N/A - patient is therapeutically anticoagulated # Contacts/HCP/Surrogate and Communication: Extended Emergency Contact Information Primary Emergency Contact: Ashanti Green Address: [address] [place] [address] [place] Mobile Relation: Daughter Secondary Emergency Contact: Rory Craft Address: [address] [place] [address] [place] [facility] Mobile Relation: Son # Advanced Care Planning: Full Code. Disposition Anticipated Disposition: snf facility. Anticipated Length of Stay: 1-2 days Barriers to Discharge: pending C-spine imaging I have spent a total of 50 minutes on this clinical encounter reviewing the medical record, seeing and examining the patient, reviewing data, writing the note, placing orders, and communicating with the applicable medical and nursing teams. More than 50% of this time was spent on patient/family counseling. Complexity Bundle Hyponatremia (present on admission) : Labs repeated - Sodium of 130 on 08/27/2025 Fluid overload: Received IV Diuretics - IV diuretics given on 09/03/2025 Anemia secondary to chronic disease and inflammation (present on admission) : Labs repeated - Hemoglobin of 8.2 on 09/04/2025 Acute on Chronic Systolic Heart Failure : Treating Moderate Chronic Malnutrition (present on admission) : Assessed - Severity based on ASPEN criteria as documented by the cad manager and is ordered for vitamin/mineral supplementation Jorge Piña MD Section of Hospital Medicine [facility] Pager: [phone] * Jorge Piña MD - 09/06/2025 8:18 AM EST Images from the original note were not included. [facility] Section of Hospital [facility] Patient: Mayra Craft Admission Date: 08/19/2025 Length of Stay: 17 PCP: Vanessa Culver MD Attending: Jorge Piña MD Chief Complaint: Originally Shoulder pain after fall with Left proximal humerus fx. 24H EVENTS - pending MRI c-spine per neurology. - Right hand PIV placed. - awaiting Rehab bed. Will have own Creon with her if this cost is issue. SUBJECTIVE Mayra is just okay today, notes more pain after working with Neurology for her exam yesterday; She is extremely apprehensive about getting an mri but thinks she can do it with Ativan; she again request 2mg but I really do think that 1mg will be more than adequate for her (she is using 0.5mg PRN anxiety here). I discussed the alternative option being CT neck without contrast, she would rather the MRI if possible but she asks please, really...? On day? I discussed that we would like to get the MRI when we can as it is the thing keeping her in the hospital and it sherley likely not be until the evening. OBJECTIVE DATA VITALS T 97.6 ??F (36.4 ??C) HR 64 BP (!) 145/72 RR 18 SpO2 98 % 4 L/min O2 Device: Nasal cannula 61.5 kg (135 lb 9.6 oz) Body mass index is 20.62 kg/m??. PHYSICAL EXAM General: Appears comfortable, intermittently in pain with movement of her shoulders. HEENT: No scleral icterus. No conjunctival injection. Pulmonary: No increased work of breathing, on 4 L NC. Lungs with no wheezing, rales. Cardiovascular: Regular rate and rhythm. No murmurs, gallops, or rubs. Abdominal: Soft, mildly distended, non-tender to palpation. Extremities: No lower extremity edema. Warm and well perfused. MSK: Pt with large area of bruising around left arm (within marked area) and improving with ROM intact at shoulder, limited at elbow due to pain. LUE with improved swelling with compression with cori wrapping. RUE with 2+ pitting edema in the proximal arm. Mild tenderness to palpation over right upper arm with c/d/I incision scar anteriorly + preserved ROM at shoulder, ROM limited over elbow due to pain. R wrist with bruising over R wrist, pain with flexion, improvement on extension--ROM intact though with pain. Neuro: Decreased bulk noted in both thighs and quadriceps as well as intrinsic foot muscles. There was marked spasticity in the legs, with each foot rolling en bloc with the rest of the leg. There were suppressible movements of the left leg that appeared rhythmic. Confrontation testing was significant limited by pain. With this limitation, she was unable to attempt abduction of either shoulder. On the right arm, biceps was 5/5, triceps 4-/5, brachioradialis 4/5. Wrist extension was 2 to 3 as she was able to extend the wrist to the horizontal position but not past it. Finger extension was 2/5 and IO 3/5. She had significant APB weakness as well on the right, likely 2/5. There were fasciculations inFID bilaterally. She was diffusely hyper-reflexic with pectoral jerks and easily elicited biceps and brachioradialis reflexes bilaterally. No Orosco's. Crossed adductors with absent Achilles for me.No clonus. The right toe was held in the extensor position. She reports normal light touch sensation throughout both arms. Psych: Alert and oriented. Normal affect. Lines: Helton in place LABS, MICROBIOLOGY and STUDIES reviewed in Epic. Pertinent Discussed in Assessment and Plan. ASSESSMENT & PLAN Mayra Craft is a 74 y.o. 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 S/p R shoulder IR aspiration 08/22 withno culture growth. Patient currently inpatient with continued pain control but can continue titration at SNF; Neurology would like to obtain MRI imaging of the c-spine to rule out myelo neuropathic process that would require inpatient management. Acute problems: # Pain control # History of Opioid Use Disorder, on suboxone Pt with a history of opioid use disorder in setting of opioids for pancreatitis, recently started on suboxone (May). Requiring high amounts of opioids in this setting given her humerus fractureand post-R shoulder hemiarthroplasty. - Chronic pain consulted, appreciate recommendations - Continue suboxone, increased to 8-2 TID on 08/27 per chronic pain recommendations - Started Lyrica 75 mg BID 08/26 - Added on methocarbamol 500 mg QID on 08/27 Prior Regimens: - S/p Morphine SATURATION DIVER 08/22-08/28 - Switched to Morphine 60 mg PO Q4H PRN + Morphine IV -> switched to PO oxycodone 10 mg PO q4h PRN -> increased to 15mg q4H PRN on 09/04. - IV acetaminophen for now, by pt request # Right Wrist Drop - ? Radial nerve palsy # UMN signs (bilateral leg spacticity, hyperreflex on upper) Pt with R wrist pain and difficulty with voluntary extension. Ortho examined on 08/28 and not concerned about septic wrist, but are concerned for possible nerve impingement. Neurology initially recommended MRI right brachial plexus, but after discussion with Neurology + Radiology, there will be significant artifact owing her her Right shoulder prosthesis and her Left sided PPM to the point of a non-diagnostic study; Discussed with radiology on 09/05 that a c-spine MRI would be possible; Logistically a CT C-spine for gross nerve impingement may be easier to evaluate. - 08/28 Right humerus XR with osteopenia but no fracture. - Neurology consult, defer MRI brachial plexus. - MRI C-spine ordered, if unable to obtain then CT C-spine without contrast looking for significantcord impingement. # Access with CVC (08/27), removed 09/04 Pt with very difficult upper extremity access given RUE DVT + Left humerus proximal fracture and resulting edema. Given need for SATURATION DIVER + other intermittent IV medication needs, including electrolyte repletion + frequent lab draws, Had IR placed triple lumen CVC on 08/27. Removed on 09/04 in anticipation for discharge when accepted to rehab, though rehab late on day of admission then declined. - Right hand PIV placed 09/06. # Left proximal humerus comminuted transverse fracture s/p fall # Significant LUE edema Pt with a mechanical fall after misjudging where the toilet seat is and falling onto her L shoulder. Given persistent pain, presented to the ED. CT scan of L humerus showed acceptable alignment amenable to non-operative treatment with immobilization in a sling; however, pt unable to tolerate sling consistently with continued pain. Repeat LUE XR with interval callus formation and no new dislocation or fracture. - Ortho following, will plan for 1-2 week follow-up with L shoulder X-Ray LUE wrapped for compression due to edema with distal pulse, sensation, and motion checks every shift Re-engaged on 08/28 given continued pain, and significant swelling - Activity restrictions: can come out of the sling for gentle pendulum range of motion. She may usethe left upper extremity for light activity daily living but no heavy lifting more than 5 pounds (coffee cup weight bearing) - Pain control, see #Pain control as above - Appreciate OT evaluation # Right shoulder swelling/pain, c/f R shoulder septic arthritis # Chronic R rotator cuff arthropathy s/p R total shoulder arthroplasty 07/11/25, conversion to R shoulder hemiarthroplasty with glenoid and humeral implant on 08/01/25 # Chronic right shoulder dislocation Pt with increased R shoulder pain and swelling post-surgery on 08/01 w/concern for possible septic joint w/CRP of 293. Initially given antibiotics, but d/c'ed for IR procedure on 08/20 to increase yield of IR tap on 08/22. Joint cultures NGTD. X ray showing chronic anterior dislocation of the humeral head relative to the glenoid, ortho reviewed and no acute intervention required, and will follow-up OP (Dr. Goins). - See #Pain control as above # Acute on chronic hypoxic respiratory failure (bl 4L NC) # Hospital Acquire Pneumonia # Leukocytosis, improved # Consolidative opacities in both lower lobes (from CT chest 08/19) # COPD without exacerbation Pt with noted consolidative opacities in both lower lobes from CT chest, initially w/o respiratory symptoms and baseline 4L NC. However, pt developed increased O2 requirements overnight, likely positional or 2/2 mucoid impaction; however, CXR still with evidence of PNA. Given pt was at rehab prior to current admission, treated recently for PNA with bactrim (08/01-08/10), and significant underlying lung disease, treated for HAP. On 08/25, pt lost IV access and her IV antibiotics were transitioned to PO linezolid + levofloxacin. Overall, given pt's clinical stability very low concern for true MRSA HAP despite + MRSA swab, completed course of HAP coverage with Levofloxacin. - Vanc/Cefepime 08/23 - 08/25, Linezolid 08/26, Levofloxacin 08/26 - 08/29 - ANALYTICAL DATA MINER consultation appreciated, ok for regular diet - Continue home Dulera + Spiriva, incentive kari # Urinary retention # Indwelling Helton with failed voiding trial 08/30 Pt with urinary retention this admission. Multifactorial, likely underlying pelvic floor dysfunction (pt was having trouble urinating prior to this hospitalization) + constipation from opioid use/decreased hydration + immobility. - Helton placed 08/25, TOV attempted on 08/29, unsuccessful; Helton replaced [] TI: Outpatient/Rehab TOV. # Acute Right axillary vein DVT, provoked. Pt with worsening R arm pain post-fall on L shoulder, w/increased swelling over right shoulder and lower arm. She was found on admission to have a new R axillary vein DVT. Heparin gtt bridged to Apixaban. - Apixaban 5mg BID started on 08/25, requires at least 3 months AC (Circa 11/23/25). Outpatient follow up. Chronic problems: # Chronic HFrEF Nt-proBNP was normal 125 on admission w/no signs/symptoms of volume overload. - on home lasix 20mg MW - entresto resumed 08/21 - daily weights, strict I&O # SSS s/p dcICD + NSVT: PVC burden of 10% on prior Zio. Continue Metop succinate 12.5 bid # Constipation: Senna/miralax scheduled + bisacodyl suppository PRN # Chronic iron deficiency anemia: Baseline hb 9-10s. Tsat 6% on 08/03. Continue po iron, Ensure Outpatient work up. # Moderate malnutrition: has lost >30lbs over last 6 months d/t poor appetite. multivitamins, ensure tid, nutrition consult. Need help with food due to b/l arm pain # Hypothyroidism - levothyroxine 50mg # Anxiety/depression - ativan 0.5 bid -> changed to BID PRN due to high dose opioid use, c/h paroxetine 20 # GERD - omeprazole 20mg daily # Hyperlipidemia - atorvastatin 20mg daily. . # Nonobstructive CAD - asa 81, stop while on therapeutic AC for now Core Bundle # PAML: complete # Nutrition/Hydration: Oral. # Functional status: Out of bed to chair with assist. # Lines/Tubes/Drains: CVC line . # VTE prophylaxis: N/A - patient is therapeutically anticoagulated # Contacts/HCP/Surrogate and Communication: Extended Emergency Contact Information Primary Emergency Contact: Ashanti Green Address: [address] [place] [address] [place] Mobile Relation: Daughter Secondary Emergency Contact: Rory Craft Address: [id number] [place] [address] Mobile Relation: Son # Advanced Care Planning: Full Code. Disposition Anticipated Disposition: snf facility. Anticipated Length of Stay: 1-2 days Barriers to Discharge: pending C-spine imaging I have spent a total of 50 minutes on this clinical encounter reviewing the medical record, seeing and examining the patient, reviewing data, writing the note, placing orders, and communicating with the applicable medical and nursing teams. More than 50% of this time was spent on patient/family counseling. Complexity Bundle Hyponatremia (present on admission) : Labs repeated - Sodium of 130 on 08/27/2025 Fluid overload: Received IV Diuretics - IV diuretics given on 09/03/2025 Anemia secondary to chronic disease and inflammation (present on admission) : Labs repeated - Hemoglobin of 8.2 on 09/04/2025 Acute on Chronic Systolic Heart Failure : Treating Moderate Chronic Malnutrition (present on admission) : Assessed - Severity based on ASPEN criteria as documented by the cad manager and is ordered for vitamin/mineral supplementation Jorge Piña MD Section of Hospital Medicine [facility] Pager: [phone] * Carlos Alberto Benítez MD - 09/05/2025 10:41 AM EST Images from the original note were not included. [facility] Department of Neurology NEUROLOGY ATTENDING CONSULT PROGRESS NOTE Date of Service: 09/05/2025 Patient: Mayra Craft Interval Events: MRI brachial plexus deferred given concern for significant artifact related to metal in right shoulder. Subjective: She continues to feel significant pain in both arms and hands. She does not feel as though the right hand has improved. She recalls episodes of a zinging sensation from the left shoulder into the left hand. She reports difficulty walking as well as urinary retention, which is new. Objective: BP 117/69 (BP Location: Right leg, Patient Position: Lying) Pulse 69 Temp 98.1 ??F (36.7 ??C) (Oral) Resp 18 Ht 1.727 m (5' 8 ) Wt 60.9 kg (134 lb 3.2 oz) SpO2 96% BMI 20.41 kg/m?? . Awake, alert, able to relay history without difficulty. No cranial nerve deficits. There was pitting edema in both arms, particularly around the elbows and the dependent portions of the forearms. Minimal if any edema in the legs. Decreased bulk noted in both thighs and quadriceps as well asintrinsic foot muscles. There was marked spasticity in the legs, with each foot rolling en bloc with the rest of the leg. There were suppressible movements of the left leg that appeared rhythmic. Confrontation testing was significant limited by pain. With this limitation, she was unable to attempt abduction of either shoulder. On the right arm, biceps was 5/5, triceps 4-/5, brachioradialis 4/5. Wrist extension was 2 to 3 as she was able to extend the wrist to the horizontal position but not past it. Finger extension was 2/5 and IO 3/5. She had significant APB weakness as well on the right, likely 2/5. There were fasciculations in FID bilaterally. She was diffusely hyper-reflexic with pectoral jerks and easily elicited biceps and brachioradialis reflexes bilaterally. No Orosco's. Crossed adductors with absent Achilles for me. No clonus. The right toe was held in the extensor position. She reports normal light touch sensation throughout both arms. Assessment and Plan: Though radial nerve palsy is certainly possible (either traumatic or related to stretch/compressioninjury following most recent should surgery), a brachial plexopathy (due to similar mechanisms) is also possible. APB weakness would support the latter, rather than an isolated radial nerve injury. MRI of the brachial plexus had been recommended but, due to metal in the right shoulder, was deferredgiven concern for associated artifact. I am worried about the possibility of a myeloradiculopathy given her reported zinging sensation in the left arm and spasticity in the legs with associated hyper-reflexia. If possible, would obtain MRI of the cervical spine to assess further. If this cannot be performed due to artifact concerns, reasonable to obtain CT cervical spine to exclude any obvious spinal cord compression. Please reach out with any questions or concerns. Carlos Alberto Benítez MD I spent 60 minutes directly and personally assessing the patient by, but not limited to, obtaining a history; examining the patient; reviewing data; providing recommendations for treatment, evaluation of patient's response to treatment; documentation of findings; and discussions with the patient and their caregivers, the primary team as well as other consultants. * Jorge Piña MD - 09/05/2025 8:48 AM EST Images from the original note were not included. [facility] Section of Hospital Medicine [facility] Progress [facility] Patient: Mayra Craft Admission Date: 08/19/2025 Length of Stay: 16 PCP: Vanessa Culver MD Attending: Jorge Piña MD Chief Complaint: Originally Shoulder pain after fall with Left proximal humerus fx. 24H EVENTS - [facility] for d/c. Lost Bed late afternoon. No IV Access (as CVL was removed). SUBJECTIVE I saw Mayra with neurology this morning; we would like to see about getting an MRI C-spine, I discussed with radiology and they will trial a few sequences to ensure good resolution and proceed with scan if possible. Mayra request pre- medication for the study with PO Lorazepam, She requests 2mg; I see that she was previously order for 1mg for her MRI when it was a brachial plexus study so will usethis order. OBJECTIVE DATA VITALS T 98.1 ??F (36.7 ??C) HR 66 BP 117/69 RR 18 SpO2 92 % 4 L/min O2 Device: Nasal cannula 60.9 kg (134 lb 3.2 oz) Body mass index is 20.41 kg/m??. PHYSICAL EXAM General: Appears comfortable, intermittently in pain with movement of her shoulders. HEENT: No scleral icterus. No conjunctival injection. Pulmonary: No increased work of breathing, on 4 L NC. Lungs with no wheezing, rales. Cardiovascular: Regular rate and rhythm. No murmurs, gallops, or rubs. Abdominal: Soft, mildly distended, non-tender to palpation. Extremities: No lower extremity edema. Warm and well perfused. MSK: Pt with large area of bruising around left arm (within marked area) and improving with ROM intact at shoulder, limited at elbow due to pain. LUE with improved swelling with compression with cori wrapping. RUE with 2+ pitting edema in the proximal arm. Mild tenderness to palpation over right upper arm with c/d/I incision scar anteriorly + preserved ROM at shoulder, ROM limited over elbow due to pain. R wrist with bruising over R wrist, pain with flexion, improvement on extension--ROM intact though with pain. Neuro: Decreased bulk noted in both thighs and quadriceps as well as intrinsic foot muscles. There was marked spasticity in the legs, with each foot rolling en bloc with the rest of the leg. There were suppressible movements of the left leg that appeared rhythmic. Confrontation testing was significant limited by pain. With this limitation, she was unable to attempt abduction of either shoulder. On the right arm, biceps was 5/5, triceps 4-/5, brachioradialis 4/5. Wrist extension was 2 to 3 as she was able to extend the wrist to the horizontal position but not past it. Finger extension was 2/5 and IO 3/5. She had significant APB weakness as well on the right, likely 2/5. There were fasciculations inFID bilaterally. She was diffusely hyper-reflexic with pectoral jerks and easily elicited biceps and brachioradialis reflexes bilaterally. No Orosco's. Crossed adductors with absent Achilles for me.No clonus. The right toe was held in the extensor position. She reports normal light touch sensation throughout both arms. Psych: Alert and oriented. Normal affect. Lines: Helton in place LABS, MICROBIOLOGY and STUDIES reviewed in [facility]. Pertinent Discussed in Assessment and Plan. ASSESSMENT & PLAN Mayra Craft is a 74 y.o. 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 S/p R shoulder IR aspiration 08/22 withno culture growth. Patient currently inpatient with continued pain control but can continue titration at SNF; Neurology would like to obtain MRI imaging of the c-spine to rule out myelo neuropathic process that would require inpatient management. Acute problems: # Pain control # History of Opioid Use Disorder, on suboxone Pt with a history of opioid use disorder in setting of opioids for pancreatitis, recently started on suboxone (May). Requiring high amounts of opioids in this setting given her humerus fractureand post-R shoulder hemiarthroplasty. - Chronic pain consulted, appreciate recommendations - Continue suboxone, increased to 8-2 TID on 08/27 per chronic pain recommendations - Started Lyrica 75 mg BID 08/26 - Added on methocarbamol 500 mg QID on 08/27 Prior Regimens: - S/p Morphine SATURATION DIVER 08/22-08/28 - Switched to Morphine 60 mg PO Q4H PRN + Morphine IV -> switched to PO oxycodone 10 mg PO q4h PRN -> increased to 15mg q4H PRN on 09/04. - IV acetaminophen for now, by pt request # Right Wrist Drop - ? Radial nerve palsy # UMN signs (bilateral leg spacticity, hyperreflex on upper) Pt with R wrist pain and difficulty with voluntary extension. Ortho examined on 08/28 and not concerned about septic wrist, but are concerned for possible nerve impingement. Neurology initially recommended MRI right brachial plexus, but after discussion with Neurology + Radiology, there will be significant artifact owing her her Right shoulder prosthesis and her Left sided PPM to the point of a non-diagnostic study; Discussed with radiology on 09/05 that a c-spine MRI would be possible; Logistically a CT C-spine for gross nerve impingement may be easier to evaluate. - 08/28 Right humerus XR with osteopenia but no fracture. - Neurology consult, defer MRI brachial plexus. - MRI C-spine ordered, if unable to obtain then CT C-spine without contrast looking for significantcord impingement. # Access with CVC (08/27), removed 09/04 # No IV access. Pt with very difficult upper extremity access given RUE DVT + Left humerus proximal fracture and resulting edema. Given need for SATURATION DIVER + other intermittent IV medication needs, including electrolyte repletion + frequent lab draws, Had IR placed triple lumen CVC on 08/27. Removed on 09/04 in anticipation for discharge when accepted to rehab, though rehab late on day of admission then declined. - Without PIV, to attempt placement with IV access. # Left proximal humerus comminuted transverse fracture s/p fall # Significant LUE edema Pt with a mechanical fall after misjudging where the toilet seat is and falling onto her L shoulder. Given persistent pain, presented to the ED. CT scan of L humerus showed acceptable alignment amenable to non-operative treatment with immobilization in a sling; however, pt unable to tolerate sling consistently with continued pain. Repeat LUE XR with interval callus formation and no new dislocation or fracture. - Ortho following, will plan for 1-2 week follow-up with L shoulder X-Ray LUE wrapped for compression due to edema with distal pulse, sensation, and motion checks every shift Re-engaged on 08/28 given continued pain, and significant swelling - Activity restrictions: can come out of the sling for gentle pendulum range of motion. She may usethe left upper extremity for light activity daily living but no heavy lifting more than 5 pounds (coffee cup weight bearing) - Pain control, see #Pain control as above - Appreciate OT evaluation # Right shoulder swelling/pain, c/f R shoulder septic arthritis # Chronic R rotator cuff arthropathy s/p R total shoulder arthroplasty 07/11/25, conversion to R shoulder hemiarthroplasty with glenoid and humeral implant on 08/01/25 # Chronic right shoulder dislocation Pt with increased R shoulder pain and swelling post-surgery on 08/01 w/concern for possible septic joint w/CRP of 293. Initially given antibiotics, but d/c'ed for IR procedure on 08/20 to increase yield of IR tap on 08/22. Joint cultures NGTD. X ray showing chronic anterior dislocation of the humeral head relative to the glenoid, ortho reviewed and no acute intervention required, and will follow-up OP (Dr. Goins). - See #Pain control as above # Acute on chronic hypoxic respiratory failure (bl 4L NC) # Hospital Acquire Pneumonia # Leukocytosis, improved # Consolidative opacities in both lower lobes (from CT chest 08/19) # COPD without exacerbation Pt with noted consolidative opacities in both lower lobes from CT chest, initially w/o respiratory symptoms and baseline 4L NC. However, pt developed increased O2 requirements overnight, likely positional or 2/2 mucoid impaction; however, CXR still with evidence of PNA. Given pt was at rehab prior to current admission, treated recently for PNA with bactrim (08/01-08/10), and significant underlying lung disease, treated for HAP. On 08/25, pt lost IV access and her IV antibiotics were transitioned to PO linezolid + levofloxacin. Overall, given pt's clinical stability very low concern for true MRSA HAP despite + MRSA swab, completed course of HAP coverage with Levofloxacin. - Vanc/Cefepime 08/23 - 08/25, Linezolid 08/26, Levofloxacin 08/26 - 08/29 - ANALYTICAL DATA MINER consultation appreciated, ok for regular diet - Continue home Dulera + Spiriva, incentive kari # Urinary retention # Indwelling Helton with failed voiding trial 08/30 Pt with urinary retention this admission. Multifactorial, likely underlying pelvic floor dysfunction (pt was having trouble urinating prior to this hospitalization) + constipation from opioid use/decreased hydration + immobility. - Helton placed 08/25, TOV attempted on 08/29, unsuccessful; Helton replaced [] TI: Outpatient/Rehab TOV. # Acute Right axillary vein DVT, provoked. Pt with worsening R arm pain post-fall on L shoulder, w/increased swelling over right shoulder and lower arm. She was found on admission to have a new R axillary vein DVT. Heparin gtt bridged to Apixaban. - Apixaban 5mg BID started on 08/25, requires at least 3 months AC (Circa 11/23/25). Outpatient follow up. Chronic problems: # Chronic HFrEF Nt-proBNP was normal 125 on admission w/no signs/symptoms of volume overload. - on home lasix 20mg MW - entresto resumed 08/21 - daily weights, strict I&O # SSS s/p dcICD + NSVT: PVC burden of 10% on prior Zio. Continue Metop succinate 12.5 bid # Constipation: Senna/miralax scheduled + bisacodyl suppository PRN # Chronic iron deficiency anemia: Baseline hb 9-10s. Tsat 6% on 08/03. Continue po iron, Ensure Outpatient work up. # Moderate malnutrition: has lost >30lbs over last 6 months d/t poor appetite. multivitamins, ensure tid, nutrition consult. Need help with food due to b/l arm pain # Hypothyroidism - levothyroxine 50mg # Anxiety/depression - ativan 0.5 bid -> changed to BID PRN due to high dose opioid use, c/h paroxetine 20 # GERD - omeprazole 20mg daily # Hyperlipidemia - atorvastatin 20mg daily. . # Nonobstructive CAD - asa 81, stop while on therapeutic AC for now Core Bundle # PAML: complete # Nutrition/Hydration: Oral. # Functional status: Out of bed to chair with assist. # Lines/Tubes/Drains: CVC line . # VTE prophylaxis: N/A - patient is therapeutically anticoagulated # Contacts/HCP/Surrogate and Communication: Extended Emergency Contact Information Primary Emergency Contact: Ashanti Green Address: [address] [place] [id number] [place] [address] Mobile Relation: Daughter Secondary Emergency Contact: Rory Craft Address: [address] [place] [id number] [place] [address] Mobile Relation: Son # Advanced Care Planning: Full Code. Disposition Anticipated Disposition: snf facility. Anticipated Length of Stay: 1-2 days Barriers to Discharge: pending C-spine imaging I have spent a total of 55 minutes on this clinical encounter reviewing the medical record, seeing and examining the patient, reviewing data, writing the note, placing orders, and communicating with the applicable medical and nursing teams. More than 50% of this time was spent on patient/family counseling. Complexity Bundle Hyponatremia (present on admission) : Labs repeated - Sodium of 130 on 08/27/2025 Fluid overload: Received IV Diuretics - IV diuretics given on 09/03/2025 Anemia secondary to chronic disease and inflammation (present on admission) : Labs repeated - Hemoglobin of 8.2 on 09/04/2025 Acute on Chronic Systolic Heart Failure : Treating Moderate Chronic Malnutrition (present on admission) : Assessed - Severity based on ASPEN criteria as documented by the cad manager and is ordered for vitamin/mineral supplementation Jorge Piña MD Section of Hospital Medicine [facility] Pager: [phone] * Kourtney Mc, RD - 09/05/2025 8:34 AM EST NUTRITION FOLLOW UP NOTE SUBJECTIVE: Patient reports great appetite, eating 3 meals/day and reports completing at least 75% or more at each meal. For breakfast today had 100% of german toast, piece of hollins and some fruit. Has been drinking Ensure original 1x/day, reports her son encourages her to drink at least 2x/day. Noting pain inher arms and shoulders/needing assistance with eating and drinking limits when she can drink Ensureand water. Per RN PO documentation, patient completing 75-100% of meals. Had questions regarding Creon and nutrition in chronic pancreatitis, denies any intolerance of foods at this time. OBJECTIVE: Height: 68 in Admit weight: 56.7 kg (08/20, unknown method) *anthros Current weight: 60.8 kg (09/04, bed scale) Other recent weights: 57.7 kg (08/30, bed scale), 57.4 kg (08/31, bed scale), 59 kg (09/01, bed scale), 56.9 kg (09/02, bed scale), 59.7 kg (09/03, bed scale) Pertinent Meds: 500 mg vitamin C, Suboxone, 25 mcg vitamin D, 325 mg ferrous sulfate, 20 mg Lasix x1, 1 g IV Iron dextran (09/04), Synthroid, Creon, Multivitamin w/ minerals, Omeprazole, Miralax BID, Senna BID, Oxycodone x 2. Others noted. Recent Labs 09/04/25 0403 NA 134* K 4.3 CL 98 CO2 32 BUN 21* CREATININE 0.40 GLUCOSE 124* CALCIUM 8.1* MG 2.1 PHOS 3.0 Corrected Calcium: 9.38 Calculated using: - Calcium: 8.1 (09/04/2025) - Albumin: 2.4 (09/04/2025) Lab Results Component Value Date [id number] 17 (L) 08/29/2025 CRP 106 (H) 08/29/2025 Lab Results Component Value Date IRON 22 (L) 09/04/2025 TIBC 208 (L) 09/04/2025 FERRITIN 121 09/04/2025 TRANSFERRIN 160 (L) 09/04/2025 IRONSAT 11 (L) 09/04/2025 Diet Order: Regular Supplement Order: Ensure Plus HP TID GI/Abdomen: Abdomen soft, nondistended. Last BM 09/04 x 1 (smear, loose, brown) Skin: R infected toe, traumatic full thickness wound to R elbow which is increasing in size (last assessed by wound care 08/30) Extremities: +2 BLE edema, edema at BUE Nutrition Focused Physical Exam: Previously completed on 08/29 ASSESSMENT: Estimated Nutrition Needs: Calories: 4108-8930 kcal (30-35 kcal/kg) Protein: 85-102 g (1.5-1.8 g/kg) Fluids: 3684-5984 mL (30-35 mL/kg) Estimated Needs Calculated Usin.7 kg (125 lb) Specifics: 74F with PMHx significant for MDD/CHRIS, opioid use disorder in sustained remission (on suboxone), SSS s/p dcICD, HFrEF (ef 40%) 2/2 niCM, moderate MR, NSVT with 10% PVC burden, non-obstructive CAD (CTA 2021), COPD with severe emphysema and 4L O2 dependence, NSCLC (adenocarcinoma) s/p left lung surgery 2016, chronic R rotator cuff arthropathy s/p R total shoulder arthroplasty 07/11/25 then conversion to R shoulder hemiarthroplasty with glenoid and humeral implant on 08/01/25 w/recent hospitalization 08/01-08/10 due to SOB w/CHF vs COPDE/PNA mucoid impaction, discharged to SNF and re-presented on 08/19 with worsening bilateral shoulder pain after fall at SNF 4 days prior to admission found to have Left humeral Fracture and RUE DVT. S/p R shoulder IR aspiration 08/22 with no culture growth. Patient currently inpatient with continued pain control but can continue titration at SNF. Nutrition following this moderately malnourished patient for PO adequacy. Per patient report, PO documentation, and review of meal ordering system, patient meeting >75% of estimated needs with thesupport of Ensure original 1x/day. Encouraged patient to continue to eat 3 meals/day and drink ensure 1-2x/day as tolerated to bolster calorie/protein intake. Weights fluctuating since last nutritionassessment likely in the setting of bed scale discrepancies and +/- fluid shifts, however remain generally stable from admission weight. Please obtain standing scale weight as able to allow for more accurate weight assessment, continue to trend weights at least 3x/week. Hyponatremia noted, ?relatedto ongoing BLE edema. Lytes otherwise WNL. Vitamin D level low with concurrent CRP >20 likely falsely lowering level, nonetheless suspect patient to continue benefit from supplementation as ordered. Consider checking zinc and vitamin A with concurrent CRP to determine need for supplementation inthe setting of full thickness elbow wound (noted to be increasing in size per wound care). Noted chronic iron deficiency, iron panel reviewed. Now s/p IV iron dextran and continues on PO supplementation. Interventions / Recommendations: Continue with diet as ordered: Encourage patient to choose foods high in calories and protein & to avoid meal skipping Encourage supplement compliance as tolerated Nutrition supplements: Ensure Plus HP TID Micronutrient recs: Continue multivitamin w/ minerals and vitamin D as ordered Check zinc and vitamin A with concurrent CRP given the above Recommend re-checking vitamin D level w/ concurrent CRP when suspect lower inflammatory burden and adjust supplementation as needed Continue to monitor lytes and address PRN Continue to monitor I/O's and BMs Please obtain standing scale weight as able, continue to trend weights at least 3x/week Nutrition to continue to follow, please message or page [phone] with any questions/concerns Signed by: Kourtney Mc MS, RD, LDN 09/05/25 8:34 AM * Yessenia Villanueva RN - 09/04/2025 3:30 PM EST Case Management Discharge Note Patient: Mayra Craft : 1950 Attending: Jorge Piña MD Admit Date: 08/19/2025 Inpatient Status Admit Date: 08/20/25 Primary Care Physician: Vaenssa Culver MD Discharge Placement/Services Facility or Service Provider: [facility] Address: [address] [place] [address] Transportation: BLS ambulance booked for 1730 pm RN Please fax/attach AVS to [phone] For Warm Handoff report, please call [phone] B Wing As discussed today in MDRs, patient is medically cleared for discharge today SNF. A list of insurance contracted facilities reviewed with patient, HCP and family with referrals sent and accepted. Yessenia Villanueva RN [id number] * Jorge Piña MD - 09/04/2025 7:12 AM EST Images from the original note were not included. [facility] Section of Hospital Medicine [facility] Patient: Mayra Craft Admission Date: 08/19/2025 Length of Stay: 15 PCP: Vanessa Culver MD Attending: Eloy Gomez MD Chief Complaint: Originally Shoulder pain after fall with Left proximal humerus fx. 24H EVENTS - PT/OT recc rehab. - atypical Chest pain overnight spider like sensation , EKG uchanged. Trop low grade similar to prior; patient fell back asleep without intervention. - EP okay for MRI. Ordered for MRI brachial plexus. For new Wrist drop. SUBJECTIVE Mayra is okay this morning, endorsing 8/10 pain in her shoulder, she says that her pain really got worse after they switched from Morphine to Oxycodone (done to avoid metabolite accumulation); her pain relief doesn't go below a 7/10 most time. I discussed with Neurology that there will be significant artifact on her MRI owing to her Prior Shoulder replacement as well as PPM on both sides; they agree that MRI is low fidelity here; She should have outpatient Neurology follow up with considerations for EMG but nothing disposition changing. THANH on Labs, ordered for IV iron. OBJECTIVE DATA VITALS T 97.5 ??F (36.4 ??C) HR 70 BP (!) 160/83 RR 16 SpO2 100 % 3 L/min O2 Device: Nasal cannula 60.9 kg (134 lb 3.2 oz) Body mass index is 20.41 kg/m??. PHYSICAL EXAM General: Appears uncomfortable. HEENT: No scleral icterus. No conjunctival injection. Pulmonary: No increased work of breathing, on 4 L NC. Lungs with no wheezing, rales. Cardiovascular: Regular rate and rhythm. No murmurs, gallops, or rubs. Abdominal: Soft, mildly distended, non-tender to palpation. Extremities: No lower extremity edema. Warm and well perfused. MSK: Pt with large area of bruising around left arm (within marked area) and improving with ROM intact at shoulder, limited at elbow due to pain. LUE with improved swelling with compression with cori wrapping. RUE with 2+ pitting edema in the proximal arm. Mild tenderness to palpation over right upper arm with c/d/I incision scar anteriorly + preserved ROM at shoulder, ROM limited over elbow due to pain. R wrist with bruising over R wrist, pain with flexion, improvement on extension--ROM intact though with pain. Neuro: Vision and hearing grossly intact. Face symmetric. Moving all four extremities purposefully. Psych: Alert and oriented. Normal affect. Lines: Helton in place LABS, MICROBIOLOGY and STUDIES reviewed in [facility]. Pertinent Discussed in Assessment and Plan. ASSESSMENT & PLAN Mayra Craft is a 74 y.o. 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 S/p R shoulder IR aspiration 08/22 withno culture growth. Patient currently inpatient with continued pain control but can continue titration at SNF. Acute problems: # Pain control # History of Opioid Use Disorder, on suboxone Pt with a history of opioid use disorder in setting of opioids for pancreatitis, recently started on suboxone (May). Requiring high amounts of opioids in this setting given her humerus fractureand post-R shoulder hemiarthroplasty. - Chronic pain consulted, appreciate recommendations - Continue suboxone, increased to 8-2 TID on 08/27 per chronic pain recommendations - Started Lyrica 75 mg BID 08/26 - Added on methocarbamol 500 mg QID on 08/27 Prior Regimens: - S/p Morphine SATURATION DIVER 08/22-08/28 - Switched to Morphine 60 mg PO Q4H PRN + Morphine IV -> switched to PO oxycodone 10 mg PO q4h PRN -> increased to 15mg q4H PRN on 09/04. - IV acetaminophen for now, by pt request # Left proximal humerus comminuted transverse fracture s/p fall # Significant LUE edema Pt with a mechanical fall after misjudging where the toilet seat is and falling onto her L shoulder. Given persistent pain, presented to the ED. CT scan of L humerus showed acceptable alignment amenable to non-operative treatment with immobilization in a sling; however, pt unable to tolerate sling consistently with continued pain. Repeat LUE XR with interval callus formation and no new dislocation or fracture. - Ortho following, will plan for 1-2 week follow-up with L shoulder X-Ray LUE wrapped for compression due to edema with distal pulse, sensation, and motion checks every shift Re-engaged on 08/28 given continued pain, and significant swelling - Activity restrictions: can come out of the sling for gentle pendulum range of motion. She may usethe left upper extremity for light activity daily living but no heavy lifting more than 5 pounds (coffee cup weight bearing) - Pain control, see #Pain control as above - Appreciate OT evaluation # C/F R Wrist Drop Pt with R wrist pain and difficulty with voluntary extension. Ortho examined on 08/28 and not concerned about septic wrist, but are concerned for possible nerve impingement. Neurology initially recommended MRI right brachial plexus, but after discussion with Neurology + Radiology, there will be significant artifact owing her her Right shoulder prosthesis and her Left sided PPM to the point of a non-diagnostic study. An outpatient neurology appointment can be pursued with considerations of EMG at that time. - 08/28 Right humerus XR with osteopenia but no fracture. - Neurology consult, defer MRI. # Right shoulder swelling/pain, c/f R shoulder septic arthritis # Chronic R rotator cuff arthropathy s/p R total shoulder arthroplasty 07/11/25, conversion to R shoulder hemiarthroplasty with glenoid and humeral implant on 08/01/25 # Chronic right shoulder dislocation Pt with increased R shoulder pain and swelling post-surgery on 08/01 w/concern for possible septic joint w/CRP of 293. Initially given antibiotics, but d/c'ed for IR procedure on 08/20 to increase yield of IR tap on 08/22. Joint cultures NGTD. X ray showing chronic anterior dislocation of the humeral head relative to the glenoid, ortho reviewed and no acute intervention required, and will follow-up OP (Dr. Goins). - See #Pain control as above # Acute on chronic hypoxic respiratory failure (bl 4L NC) # Hospital Acquire Pneumonia # Leukocytosis, improved # Consolidative opacities in both lower lobes (from CT chest 08/19) # COPD without exacerbation Pt with noted consolidative opacities in both lower lobes from CT chest, initially w/o respiratory symptoms and baseline 4L NC. However, pt developed increased O2 requirements overnight, likely positional or 2/2 mucoid impaction; however, CXR still with evidence of PNA. Given pt was at rehab prior to current admission, treated recently for PNA with bactrim (08/01-08/10), and significant underlying lung disease, treated for HAP. On 08/25, pt lost IV access and her IV antibiotics were transitioned to PO linezolid + levofloxacin. Overall, given pt's clinical stability very low concern for true MRSA HAP despite + MRSA swab, completed course of HAP coverage with Levofloxacin. - Vanc/Cefepime 08/23 - 08/25, Linezolid 08/26, Levofloxacin 08/26 - 08/29 - ANALYTICAL DATA MINER consultation appreciated, ok for regular diet - Continue home Dulera + Spiriva, incentive kari # Urinary retention # Indwelling Helton with failed voiding trial 08/30 Pt with urinary retention this admission. Multifactorial, likely underlying pelvic floor dysfunction (pt was having trouble urinating prior to this hospitalization) + constipation from opioid use/decreased hydration + immobility. - Helton placed 08/25, TOV attempted on 08/29, unsuccessful; Helton replaced [] TI: Outpatient/Rehab TOV. # Access with CVC (08/27). Pt with very difficult upper extremity access given RUE DVT + Left humerus proximal fracture and resulting edema. Given need for SATURATION DIVER + other intermittent IV medication needs, including electrolyte repletion + frequent lab draws, Had IR placed triple lumen CVC on 08/27 - IR consult for temp access, placed # Acute Right axillary vein DVT, provoked. Pt with worsening R arm pain post-fall on L shoulder, w/increased swelling over right shoulder and lower arm. She was found on admission to have a new R axillary vein DVT. Heparin gtt bridged to Apixaban. - Apixaban 5mg BID started on 08/25, requires at least 3 months AC (Circa 11/23/25). Outpatient follow up. Chronic problems: # Chronic HFrEF Nt-proBNP was normal 125 on admission w/no signs/symptoms of volume overload. - on home lasix 20mg MW - entresto resumed 08/21 - daily weights, strict I&O # SSS s/p dcICD + NSVT: PVC burden of 10% on prior Zio. Continue Metop succinate 12.5 bid # Constipation: Senna/miralax scheduled + bisacodyl suppository PRN # Chronic iron deficiency anemia: Baseline hb 9-10s. Tsat 6% on 08/03. Continue po iron, Ensure Outpatient work up. # Moderate malnutrition: has lost >30lbs over last 6 months d/t poor appetite. multivitamins, ensure tid, nutrition consult. Need help with food due to b/l arm pain # Hypothyroidism - levothyroxine 50mg # Anxiety/depression - ativan 0.5 bid -> changed to BID PRN due to high dose opioid use, c/h paroxetine 20 # GERD - omeprazole 20mg daily # Hyperlipidemia - atorvastatin 20mg daily. . # Nonobstructive CAD - asa 81, stop while on therapeutic AC for now Core Bundle # PAML: complete # Nutrition/Hydration: Oral. # Functional status: Out of bed to chair with assist. # Lines/Tubes/Drains: CVC line . # VTE prophylaxis: N/A - patient is therapeutically anticoagulated # Contacts/HCP/Surrogate and Communication: Extended Emergency Contact Information Primary Emergency Contact: Ashanti Green Address: [address] [place] [address] [place] [employer] Relation: Daughter Secondary Emergency Contact: Rory Craft Address: [address] [place], [place] [id number] [place] [address] Mobile Relation: Son # Advanced Care Planning: Full Code. Disposition Anticipated Disposition: snf facility. Anticipated Length of Stay: 1-2 d Barriers to Discharge: Pain control, but can continue titration at SNF. I have spent a total of 60 minutes on this clinical encounter reviewing the medical record, seeing and examining the patient, reviewing data, writing the note, placing orders, and communicating with the applicable medical and nursing teams. More than 50% of this time was spent on patient/family counseling. Complexity Bundle Hyponatremia (present on admission) : Labs repeated - Sodium of 130 on 08/27/2025 Fluid overload: Received IV Diuretics - IV diuretics given on 09/03/2025 Anemia secondary to chronic disease and inflammation (present on admission) : Labs repeated - Hemoglobin of 8.2 on 09/04/2025 Acute on Chronic Systolic Heart Failure : Treating Moderate Chronic Malnutrition (present on admission) : Assessed - Severity based on ASPEN criteria as documented by the cad manager and is ordered for vitamin/mineral supplementation Jorge Piña MD Section of Hospital Medicine [facility] Pager: [phone] * Jemima Jara, PT - 09/03/2025 4:49 PM EST PHYSICAL THERAPY PROGRESS NOTE Rehabilitation Services - Inpatient Physical Therapy Level of Care: Floor Interdisciplinary Recommendations PT Discharge rec: Rehab Movement Precautions: ROM, Bracing/Orthoses WB Status: LUE Weight Bearing : CCWB, no lifting >5#, sling at all times, ok for pendulums/gentle ROM RUE Weight Bearing : NWB, ROMAT Activity and Mobility Recommendations: [x]Patient is at high risk for deconditioning. Please maximize independence in ADLs and encourage frequent mobility including: Lift for all mobility including transfers to chair 3x/day [x]Patient is at risk for pressure injury. Please limit sitting time to one hour on standard air cushion given patient???s inability to effectively reposition in chair. [x]Patient is at risk for falls. Please use chair alarm when out of bed. [x]Patient is at risk for delirium. Please consider implementing strategies to reduce risk including: OOB to chair 3 day for all meals Familiar pictures and items within view News or nonverbal music on during daytime Lights on during day with shades UP Frequent Reorientation to clock, calendar, and window Encourage participation with ADLs Encourage family presence at bedside *For questions please check the patient???s care team for the most updated PT contact information [x]Updated medical status including labs, radiology, procedures and medications since previous visit reviewed Subjective: It's actually quite wonderful re: snow globe her son bought her Patient-Stated Goal: none stated, agreeable to PT/OT session Objective: Hemodynamic Response/Aerobic Capacity O2 >88% 4L NC t/o session (baseline wears 4L NC) Rhythm: per tele Relevant cardiac medications reviewed in OMR Asymptomatic t/o session, RN aware Functional Mobility Bed Mobility: Supine to Sit: Contact guard (tactile and verbal cues for technique) Adaptive Equipment: HOB elevated Sit to Supine: Moderate assistance, 2 person Adaptive Equipment: HOB elevated Transfers: Sit to Stand: Minimal assistance, 2 person (w/ rocking for momentum) Demonstrated retropulsion Stand to Sit: Minimal assistance, 2 person Bed to Chair: Activity does not occur (pt declines) Transfer aid: None (given precautions) Gait Belt Used for Transfers: Yes Transfer barriers: Pain, Balance, Anxiety/fear, Precautions BUE Gait: Activity does not occur (bed > chair stand step only) Stairs: Activity does not occur Balance: Supervision static sitting Supervision dynamic sitting Sat >10 min EOB to have therapist brush hair and pt perform ROM w/o UE support Minimal assistance, 2 person static standing Stands ~30 sec but demonstrates retropulsion requiring cues Pain: 03/22 t/o session Location: BUE, specifically shoulders and elbows Quality: does not qualify Intervention: repositioning, RN aware, pre-medicated by RN, educated on non- medication pain management techniques, rest Limiting Symptoms: Pain, Anxiety/Fear, Precautions, Weakness Other Tests and Measures: Cognition: Level of Consciousness: Alert Orientation Level: Oriented X4 Following Directions: Follows all directions without difficulty Success rate following directions: 100% of the time Patient Behaviors/Mood: Cooperative, Anxious Memory: Intact (recalls therapists from previous visits, verbally recalls precautions) Attention to Tasks: Attends to task, Attends to conversation Safety Awareness: Full awareness of safety precautions, Full awareness of deficits, Full awareness of errors made (verbalizes good understanding of safety precautions/recommendations though continuesto decline wearing sling / cuff and collar) Insight: Fair Additional Tests: Declines to wear R splint and L cuff and collar t/o session despite education, encouragement ROM BUE per OT - tolerates 1-3 reps AAROM ignacio wrist/elbow flexion/extension Infrequent spontaneous cough - non-productive, moderately strong Standardized Tests and Outcome Measures: NT Intervention: Therapeutic activities Functional mobility training Endurance training Energy conservation Patient/Caregiver Education RE: [x]Role of PT [x]PT plan of care [x]Fall risk reduction [x]Discharge recommendations [x]Mobility Recommendations []Other: []Rodeo Clown utilized for session Team Communication: Communicated with [x]RN [x]MD [x]OT (cotreat) [x]CM RE: Patient status, d/c recs, mobility recs, pain [x]Patient discussed at interdisciplinary team rounds. Pt left supine in bed with all needs in reach, bed alarm on, RN aware Assessment Clinical Impression: Mayra Craft is a 74 y.o. female with a history of past medical history significant for MDD/CHRIS, opioid use disorder in sustained remission, SSS s/p dcICD, HFrEF (ef 40%) 2/2 niCM, moderate MR, NSVT with 10% PVC burden, non-obstructive CAD (CTA 2021). 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 recent hospitalization 08/01-08/10 with SOB felt comboof slight CHF exacerbation and COPDE/PNA mucoid impaction, dced to SNF presented with worsening b/lshoulder pain after fall at SNF 4 days ago found to have L humeral Fx and RUE DVT. S/p R shoulder IR aspiration 08/22 with no culture growth. C/c/b R wrist drop, now awaiting MRI. Pt is making steady progress as demonstrated by improved ROM tolerance, sitting tolerance as compared to previous visit. Despite anxiety surrounding falling, pt agreeable to stand w/ assist x2 but given PTSD/anxiety from recent fall at rehab, pt demonstrating retropulsion and deferred further mobility thereafter. Pt continues to function below baseline limited by the primary impairment/activity limitation of impaired activity tolerance which is likely due to pain from ignacio shoulders and recent falls. Pt also continues to decline use of R splint and L cuff and collar despite education, encouragement to wear per orders and for healing purposes. At this time, recommend return to rehab to optimize function prior to returning home. Acute PT willcontinue to follow to progress as able while admitted to for medical reasons. Treatment Plan: Pulmonary hygiene, Balance training, Functional mobility training, Interventional ROM, Transfer training, Patient education, Pain management strategies Patient agrees with the above goals and is willing to participate in the rehabilitation program: Yes Time: 1380-4211 Physical Therapist Name: Jemima Jara PT, DPT Physical Therapist Pager: [phone] Physical Therapist License Number: [id number] * Shannan Arellano, OT - 09/03/2025 4:11 PM EST OCCUPATIONAL THERAPY PROGRESS NOTE Rehabilitation Services - Inpatient Occupational Therapy Level of Care: Floor Interdisciplinary Recommendations OT Discharge rec: (Rehab) Movement Precautions: ROM, Bracing/Orthoses (RUE sling for comfort, LUE sling at all times, may remove briefly for gentle pendulums and for elbow/wrist/digit ROM) ok to trial cuff and collar sling per ortho trauma, wrist cock-up per ortho trauma WB Status: Extremity Weight Bearing Status: Left Upper Extremity, Right Upper Extremity LUE Weight Bearing : (coffee cup weightbearing(5lb limit) ok to use for light ADLs) RUE Weight Bearing : NWB Activity and Mobility Recommendations: [x]Patient is at high risk for deconditioning. Please maximize independence in ADLs and encourage frequent mobility including: Daily mobility per [facility] mobility goals established, lift OOB to chair 3x/day [x]Patient is at risk for pressure injury. Please limit sitting time to one hour on standard air cushion given patient???s inability to effectively reposition in chair. [x]Patient is at risk for falls. Please use chair alarm when out of bed. [x]Patient is at risk for delirium. Please consider implementing strategies to reduce risk including: OOB to chair 3 day for all meals Familiar pictures and items within view News or nonverbal music on during daytime Lights on during day with shades UP Frequent Reorientation to clock, calendar, and window Encourage participation with ADLs Encourage family presence at bedside *For questions please check the patient???s care team for the most updated OT contact information [x]Updated medical status including labs, radiology, procedures and medications since previous visit reviewed SUBJECTIVE: I'm sorry that I can't do more Patient goal and desires: OBJECTIVE: CLIENT FACTORS: Mental Functions: Level of Consciousness: Alert Orientation Level: Oriented X4 Oriented to: Name, Date of , Day, Date, Month, Year, Place, Name of hospital, Etiology/events Following Directions: Follows all directions without difficulty Success rate following directions: 100% of the time Patient Behaviors/Mood: Appropriate for situation, Cooperative, Anxious Memory: Intact (recalls therapists from previous visits, verbally recalls precautions) Attention to Tasks: Attends to task, Attends to conversation Safety Awareness: Full awareness of safety precautions, Full awareness of deficits, Full awareness of errors made (verbalizes good understanding of safety precautions/recommendations) Insight: (Fair insight into abilities/limitations) Problem Solving: Assistance required to generate solutions, Assistance required to implement solutions Behaviors: Alert, Cooperative Aphasia: None present Functional Communication: Intact OCCUPATIONS: Current Activities of Daily Living: Feeding: Maximal assistance (sip beverage with straw, unable to effectively use arms to assist) Where Assessed - Feeding: Edge of bed Grooming: Maximal assistance (sits EOB 5-10 minutes for hair to be combed) Where Assessed - Grooming: Edge of bed Upper Body Dressing Assistance Required: Maximal assistance (change gown, able to lean forward for positioning) Where Assessed-Upper Body ADLs: Chair Lower Body Dressing Assistance Required : Maximal assistance (kick legs for socks) Where Assessed-Lower Body ADLs: Edge of bed ADL Comments: grossly limited by impaired use of bimanual UE iso pain and precautions Functional Mobility Bed Mobility: Rolling: Activity does not occur Supine to Sit: Contact guard (tactile and verbal cues for technique) Adaptive Equipment: HOB elevated Bed Moblity Barriers: Pain, Precautions, Non functioning dominant upper extremity, Non functioning non dominant upper extremity Transfers: Sit to Stand: Minimal assistance, 2 person (retropulsive) Stand to Sit: Minimal assistance, 2 person Bed to chair: Activity does not occur Bed to commode: Activity does not occur Gait Belt Used For Transfers: Yes Transfer Barriers: Pain, Balance Gait: Ambulation Assistance: Activity does not occur Assistive Device: None Balance: Sitting - Static: Supervision Sitting - Dynamic: Supervision Standing - Static: Minimal assistance, 2 person (retropulsive, stands ~ 30 seconds) Standing - Dynamic: Activity does not occur [x]Vital signs monitored and found to be within normal limits with exceptions noted in Flowsheets/detailed below Hemodynamic Response/Aerobic Capacity O2>88% on 4L Pain: 7/10 at rest. 7/10 with activity. 7/10 at recovery. Location: bilateral arms/shoulders Quality: doesn't describe Intervention: Medication (See MAR), Breathing techniques, Emotional support, Reposition Limiting Symptoms: Pain anxiety Additional Tests/Measures: Continues to decline RUE splint and LUE sling; able to verbalize understanding of recommendations for positioning. Tolerates 1-3 reps AAROM ignacio wrist/elbow flexion/extension, grossly limited by pain.Unable to attempt pendulum exercises due to pain and fear of falling Team Communication: Communicated with [x]RN []MD [x]PT(cris[x]) [x]SW RE: Patient status []Rodeo Clown utilized for session Intervention: Patient/Caregiver Education RE: Role of OT OT plan of care Discharge recommendations ADL strategies ROM Functional mobility training Pt left supine with all needs in reach, bed alarm for safety. ASSESSMENT/CLINICAL IMPRESSION: Mayra Craft is a 74 y.o. female with chronic R rotator cuff arthropathy s/p R total shoulder arthroplasty 07/11/25 then conversion to R shoulder hemiarthroplasty with glenoid and humeral implant on 08/01/25 w/recent hospitalization 08/01-08/10 due to SOB w/CHF vs COPDE/PNA mucoid impaction, dced to SNF, who presents to occupational therapy during hospitalization after presenting on 08/19 with worsening b/l shoulder pain after fall at SNF 4 days prior to admission found to have L humeral Fx and RUE DVT. S/p R shoulder IR aspiration 08/22 with no culture growth.Patient currently inpatient with continued pain control. Patient verbalizes good understanding of ignacio UE precautions, continue to encourage and provide education declines splint and sling. Pt is demonstrating improvements in occupational engagement as evidenced by participation in EOB grooming routine and ROM exercises. Pt continues to present below baseline in areas specific to client factors such as ADL/Self-care, Altered balance, Decreased activity tolerance, Decreased ROM, Decreased strength/muscular endurance, Pain, Non-functional R UE, Non-functional L UE and occupations such as Functional Mobility, Decreased activity tolerance, Upper body ADL's, Lower body ADL's, IADL's, Toileting, Feeding, Safety Judgemen t. 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 Due to pt current impairments and their impact on occupational engagement, pt will most benefit from d/c to interdisciplinary rehab. Acute OT will continue to follow and progress per intervention plan. Treatment Plan: ADL retraining, Balance training, Bed mobility, Fine motor coordination activities, Functional mobility training, IADL retraining, Patient/family education, Upper extremity strengthening, Upper extremity ROM Patient agrees with the above goals and is willing to participate in the rehabilitation program: Yes Time: [id number] Occupational Therapist Name: Shannan Arellano OT License #[id number] Occupational Therapist Pager: [phone] * Yessenia Villanueva RN - 09/03/2025 1:48 PM EST Case Management - Progress Note Patient: Mayra Craft : 1950 Attending: Eloy Gomez MD Admit Date: 08/19/2025 Inpatient Status Admit Date: 08/20/25 Primary Care Physician: Vanessa Culver MD Has patient been discussed in MDR?:Yes LEONARDA 09/04/25 Barrier: MRI 09/03 r/o Brachial Plexus, will need updated PT/OT note, Pain management plan, helton, CVC Triple Lumen. Case Management will continue to monitor and address anticipated discharge planning needs. Should post-acute services be indicated, the patient and/or their authorized reimbursement representative will be providedwith a comprehensive list of available, appropriate providers from which to choose. Yessenia Villanueva [id number] 09/03/2025 * NORMA Rivera - 09/03/2025 1:04 PM EST Mayra Craft [id number] 09/03/2025 EP Service Note The clinical team has requested an MRI. This patient has a cardiac implantable electrical device. I have reviewed the clinical and device data and the patient's system is: [x] FDA approved as MRI conditional for the MRI currently under consideration. [employer] [place] PPM - ok for ipad and 3T if needed This CIED system is compatible with the applicable hospital protocol for MRI-CIED examinations. This MRI is approved for scheduling in coordination with the radiology department and appropriate clinical supervision. NORMA Rivera * Eloy Gomez MD - 09/03/2025 10:42 AM EST HOSPITAL MEDICINE PROGRESS NOTE Patient: Mayra Craft Admit Date: 08/19/2025 LOS: 14 days Primary Care Physician: Vanessa Culver MD Interval Events: None reported. Subjective: Patient reports similar pain in her upper extremities. There is no chest pain or dyspnea. She notesno fevers or chills. There is no abdominal pain. She is requesting 2 mg PO lorazepam to go to MRI. She takes 0.5 mg PO lorazepam at home. Physical Exam Temp: [97.3 ??F (36.3 ??C)-98.5 ??F (36.9 ??C)] 97.7 ??F (36.5 ??C) Heart Rate: [59-66] 63 Resp: [16-18] 18 BP: (93-132)/(52-80) 126/59 SpO2: [94 %-100 %] 98 % Stool Assessment Stool Occurrence: 1 Bowel Incontinence: Yes Stool Amount: Small Stool Appearance: Loose Stool Color: Brown Last BM Date: 09/01/25 Stool Amount: Small Stool Appearance: Loose Stool Color: Brown Last BM Date: 09/01/25 0-10 Pain Score : 7 (09/03/2025 7:06 AM) Macdonald-Sanford FACES Pain Ratin (09/02/2025 4:09 PM) Pain Location: Shoulder (09/02/2025 9:04 PM) Pain Orientation: Right; Left (09/02/2025 12:30 AM) General: Appears uncomfortable. HEENT: No scleral icterus. No conjunctival injection. Pulmonary: No increased work of breathing, on 4 L NC. Lungs with no wheezing, rales. Cardiovascular: Regular rate and rhythm. No murmurs, gallops, or rubs. Abdominal: Soft, mildly distended, non-tender to palpation. Extremities: No lower extremity edema. Warm and well perfused. MSK: Pt with large area of bruising around left arm (within marked area) and improving with ROM intact at shoulder, limited at elbow due to pain. LUE with improved swelling with compression with cori wrapping. RUE with 2+ pitting edema in the proximal arm. Mild tenderness to palpation over right upper arm with c/d/I incision scar anteriorly + preserved ROM at shoulder, ROM limited over elbow due to pain. R wrist with bruising over R wrist, pain with flexion, improvement on extension--ROM intact though with pain. Neuro: Vision and hearing grossly intact. Face symmetric. Moving all four extremities purposefully. Psych: Alert and oriented. Normal affect. Lines: Helton in place Data: I have reviewed the relevant labs, radiology studies, tracings, medical records, and they are notable for Results for orders placed or performed during the hospital encounter of 08/19/25 (from the past 24 hours) CBC Result Value Ref Range WBC 4.60 4.00 - 10.00 K/uL RBC 2.65 (L) 3.90 - 5.20 M/uL Hemoglobin 7.4 (L) 11.2 - 15.7 g/dL Hematocrit 24.3 (L) 34.0 - 45.0 % MCV 92 82 - 98 fL MCH 27.9 26.0 - 32.0 pg MCHC 30.5 (L) 32.0 - 37.0 g/dL RDW 16.9 (H) 10.5 - 15.5 % RDW-SD 54.3 (H) 35.1 - 46.3 fL Platelet Count 265 150 - 400 K/uL Nucleated RBC 0 <=0 #/100 WBC C-Reactive Protein Result Value Ref Range C-Reactive Protein (CRP) 66.3 (H) 0.0 - 5.0 mg/L Renal Function Panel Result Value Ref Range Sodium 133 (L) 135 - 147 mmol/L Potassium 4.0 3.5 - 5.4 mmol/L Chloride 99 96 - 108 mmol/L Total CO2/Bicarbonate 31 22 - 32 mmol/L Anion Gap 3 (L) 4 - 16 mmol/L BUN 21 (H) 6 - 20 mg/dL Creatinine, Blood 0.40 0.40 - 1.10 mg/dL Glucose, Blood 133 (H) 70 - 100 mg/dL Calcium 8.0 (L) 8.4 - 10.3 mg/dL Albumin, Blood 2.2 (L) 3.5 - 5.2 g/dL Phosphorus 3.2 2.7 - 4.5 mg/dL Magnesium, Blood 2.0 1.6 - 2.6 mg/dL XR Humerus 2+ VW Right Result Date: 09/01/2025 EXAMINATION: XR HUMERUS 2+ VW RIGHT INDICATION: c/f R humerus pathology given r wrist drop; TECHNIQUE: Frontal view radiographs of the right humerus. COMPARISON: Radiographs of the right shoulder from 19 August 2025. FINDINGS: There is diffuse osteopenia. At the right shoulder, again seen is a right humeral arthroplasty. There is persistent anterior/subcoracoid dislocation of the right humeral head component relative to the glenoid. No obvious loosening or displacement of the humeral prosthesis is suggested on these images. Distal to the prosthesis, the right humerus is intact and no lucent or sclerotic fracture line or displaced fracture fragment is detected in the humerus. No obvious focal lytic or sclerotic bone lesion detected in the right humerus. No bony exostosis. No soft tissue calcification or unexpected radiopaque foreign body. Assessment of the right elbow joint is limited, but right elbow appears congruent, probably with mild changes of osteoarthritis. Again seen are coars ened lung markings in the included portion of the right lung. 1. Diffuse osteopenia. 2. No right humeral fracture detected on these views. 3. Again seen is the right humeral hemiarthroplasty, with anterior subcoracoid dislocation of the right humeral head with respect to the glenoid. If there remains clinical concern for nerve compression, consider MRI for further evaluation. BY ELECTRONICALLY SIGNING THIS REPORT, I THE ATTENDING PHYSICIAN ATTEST THAT I HAVE REVIEWED THE IMAGES FOR THE ABOVE PROCEDURE(S) AND AGREE WITH THE FINDINGS DOCUMENTED. Sunni Mercado MD, electronically signed on Sep 01 2025 11:10AM XR Shoulder 2+ VW Left Result Date: 08/29/2025 EXAMINATION: XR SHOULDER 2+ VW LEFT INDICATION: pt with known L proximal humerus comminuted fracture with significant edema + continued pain, XR for worsening of fracture; TECHNIQUE: Frontal and Grashey view radiographs of the left shoulder. COMPARISON: Radiographs of the left shoulder from 19 August 2025. FINDINGS: Partially-imaged left-sided dual lead cardiac device noted. Again seen is the comminuted and impacted fracture of the left proximal humerus involving the humeral head and surgical neck. Fracture lines remain visible, though with interval callus formation. No evidence of acromioclavicular or glenohumeral joint dislocation. No new fracture detected. Probable diffuse osteopenia. Left lower lung opacity seen on frontal and oblique views. This appears more pronounced than on the 2024 left shoulder radiographs. Recommend further evaluation with dedicated chest x-ray. Surgical sutures noted in the left lung. RECOMMENDATION(S): Chest x-ray. NOTIFICATION: The findingsand recommendations above were discussed with, and acknowledged by Dr. Mayra Craft by Dr. Sunni Pham, using [employer] Secure Chat on 08/28/2025 at 3:24 pm, 2 minutes after discovery of the findings. BY ELECTRONICALLY SIGNING THIS REPORT, I THE ATTENDING PHYSICIAN ATTEST THAT I HAVE REVIEWED THE IMAGES FOR THE ABOVE PROCEDURE(S) AND AGREE WITH THE FINDINGS DOCUMENTED. Sunni Mercado MD, electronically signed on Aug 29 2025 03:22PM XR Chest 1 VW Portable Result Date: 08/28/2025 EXAMINATION: XR CHEST 1 VW PORTABLE INDICATION: incidentally noted LLL consolidation; TECHNIQUE: Chest portable AP COMPARISON: Multiple prior studies, most recent chest radiograph dated 08/23/2025. Retrocardiac and right basilar opacifications appear grossly similar and are better assessed by therecent chest CT. Diffuse reticular opacities are also better assessed by the previous chest CT, probably representing extensive emphysema. Superimposed inflammation is possible. Otherwise no significant interval change in the appearance of the chest. Kristopher Hickey MD, electronically signed on Aug 28 2025 04:02PM ECG 12 lead Result Date: 08/28/2025 Sinus rhythm with premature atrial depolarizations When compared with ECG of 23-Aug-2025 00:35, No significant change was found Temporary Access Catheter Placement Result Date: 08/27/2025 INDICATION: Inability to obtain or maintain peripheral venous access COMPARISON: None. TECHNIQUE: OPERATORS: Dr. Mckeon, attending interventional radiologist performed the procedure. ANESTHESIA: Local only Fluoro time 15 seconds Radiation Dose: <1 mGY PROCEDURE: PROCEDURE DETAILS: Following the explanation of the risks, benefits and alternatives to the procedure, written informed consent was obtained from the patient. The patient was then brought to the angiography suite and placed supine on the exam table. A pre-procedure time-out was performed per [facility] protocol. The right neck was preppedand draped in the usual sterile fashion. Under continuous ultrasound guidance, the patent right internal jugular vein was compressible and accessed using a micropuncture needle. Permanent ultrasound images were obtained before and after intravenous access, which confirmed vein patency. Subsequentlya Nitinol wire was passed into the IVC using fluoroscopic guidance. The needle was exchanged for a micropuncture sheath. The Nitinol wire was removed and an 0.035 wire was advanced into the IVC. A triple lumen central catheter was advanced over the wire into the superior vena cava with the tip in the cavoatrial junction. All 3 access ports were aspirated, flushed and capped. The catheter was secured to the skin with a 0 silk suture and sterile dressings were applied. Final spot fluoroscopic image demonstrating good alignment of the catheter and no kinking. The patient tolerated the procedure well without immediate complications. FINDINGS: Patent right internal jugular vein. Final fluoroscopic image showing the catheter tip terminating in the distal superior vena cava. Successful placement of a 7 Fr 16 cm triple-lumen temporary central venous catheter via the right internal jugular venous approach. The tip of the catheter terminates in the distal superior vena cava. The catheter is ready for use. Sammi Mckeon MD, electronically signed on Aug 27 2025 01:44PM XR Abdomen Portable Result Date: 08/25/2025 INDICATION: LUQ abdominal pain; TECHNIQUE: Portable supine abdominal radiograph was obtained. COMPARISON: None Nonspecific bowel gas pattern with gas noted throughout nondilated small bowel loops in the midlineand: To the level of rectum. There is a single dilated loop of bowel probably small bowel loop in the left upper quadrant suggestive of focal ileus or could be splenic flexure. Moderate stool burden in the right side of the colon. Suboptimal study for evaluation of free air however no gross pneumoperitoneum. There are degenerative changes in the spine Kate Lugo MD, electronically signed on Aug 25 2025 03:52PM XR Hand 3+ VW Right Result Date: 08/24/2025 EXAMINATION: XR WRIST 3+ VW RIGHT; XR HAND 3+ VW RIGHT INDICATION: pt with fall and continued r wrist and hand pain.; TECHNIQUE: Frontal, oblique, and lateral view radiographs of right hand and wristCOMPARISON: None available. No acute fractures or dislocations are seen. Mild degenerative changes of the first carpometacarpaljoint in setting of osteophytosis. Mild negative ulnar variance. No bone erosion or periostitis. Nosuspicious lytic or sclerotic lesion. No soft tissue calcifications or radiopaque foreign body. No significant carpal bone malalignment. BY ELECTRONICALLY SIGNING THIS REPORT, I THE ATTENDING PHYSICIAN ATTEST THAT I HAVE REVIEWED THE IMAGES FOR THE ABOVE PROCEDURE(S) AND AGREE WITH THE FINDINGS DOCUMENTED. Geeta Hummel MD, electronically signed on Aug 24 2025 05:46PM XR Wrist 3+ VW Right Result Date: 08/24/2025 EXAMINATION: XR WRIST 3+ VW RIGHT; XR HAND 3+ VW RIGHT INDICATION: pt with fall and continued r wrist and hand pain.; TECHNIQUE: Frontal, oblique, and lateral view radiographs of right hand and wristCOMPARISON: None available. No acute fractures or dislocations are seen. Mild degenerative changes of the first carpometacarpaljoint in setting of osteophytosis. Mild negative ulnar variance. No bone erosion or periostitis. Nosuspicious lytic or sclerotic lesion. No soft tissue calcifications or radiopaque foreign body. No significant carpal bone malalignment. BY ELECTRONICALLY SIGNING THIS REPORT, I THE ATTENDING PHYSICIAN ATTEST THAT I HAVE REVIEWED THE IMAGES FOR THE ABOVE PROCEDURE(S) AND AGREE WITH THE FINDINGS DOCUMENTED. Geeta Hummel MD, electronically signed on Aug 24 2025 05:46PM ECG 12 lead Result Date: 08/24/2025 Sinus rhythm with premature atrial depolarizations Inferior infarct , age undetermined Abnormal ECGWhen compared with ECG of 21-Aug-2025 22:25, Inferior infarct is now present Chest 1 VW Portable Result Date: 08/23/2025 EXAMINATION: XR CHEST 1 VW PORTABLE INDICATION: Hypoxia, eval pneumonia, fluid overload, pneumothorax; TECHNIQUE: AP chest COMPARISON: Chest radiograph dated 08/19/2025 In comparison to study of August 19, there are similar bibasilar and retrocardiac opacifications, likely representing pneumonia. Similar diffuse increased interstitial opacities may represent underlying mild pulmonary edema and severe emphysema. No pleural effusion or pneumothorax. Cardiac silhouette size is normal. Similar position of the left chest wall pacer device leads. Left proximal humerus fracture is again noted. Guy Callahan MD, electronically signed on Aug 23 2025 07:31AM ECG 12 lead, to be obtained, dyspnea Result Date: 08/22/2025 Sinus rhythm with premature atrial depolarizations Right axis deviation When compared with ECG of 19-Aug-2025 17:25, Questionable change in QRS axis ST no longer elevated in Anterior leads MSK Injection / Aspiration - US Result Date: 08/22/2025 EXAMINATION: IR MSK INJECTION / ASPIRATION - US INDICATION: continued swelling of R shoulder, elevated CRP; TECHNIQUE: The risks, benefits, and alternatives were explained to the patient and written informed consent obtained. A pre- procedure timeout confirmed three patient identifiers. Under ultrasound guidance, an appropriate spot was marked. The area was prepared and draped in standard sterile fashion. 4 cc of 1% Lidocaine was used to achieve local anesthesia. Under intermittent ultrasound guidance, a 22-gauge spinal needle was advanced into the posterior aspect of the shoulder joint. Aspiration trail resulted in dry tap. Lavage of the joint was performed with 2-3 CC of joint reddish fluid was obtained. The needle was removed, hemostasis achieved, and a sterile bandage applied. The patient tolerated the procedure well and left the department in good condition. There were no immediate complications. COMPARISON: None FINDINGS: Again seen is cortical irregularity in keeping with known p roximal left humeral fracture. 1. Imaging Findings - as above. 2. Procedure - Uneventful ultrasound-guided lavage with fluid aspiration, which was sent for microbiology. I Dr. Duran personally supervised the Resident/Fellowduring the landrum components of the above procedure and I have reviewed and agree with the Resident/Fellow findings/dictation. BY ELECTRONICALLY SIGNING THIS REPORT, I THE ATTENDING PHYSICIAN ATTEST THAT I HAVE REVIEWED THE IMAGES FOR THE ABOVE PROCEDURE(S) AND AGREE WITH THE FINDINGS DOCUMENTED. Adarsh Duran MD, electronically signed on Aug 22 2025 03:47PM CT Shoulder Left Without Contrast Result Date: 08/21/2025 EXAMINATION: CT SHOULDER LEFT WO CONTRAST INDICATION: shoulder pain; TECHNIQUE: MDCT images of the left shoulder were obtained without contrast. Coronal and sagittal reformats were obtained. DOSE: Acquisition sequence: 1) Spiral Acquisition 5.0 s, 23.0 cm; CTDIvol = 13.3 mGy (Body) DLP = 306.2 mGy-cm Total DLP (Body) = 306 mGy-cm COMPARISON: Radiograph of left shoulder dated August [address] pulmonary angiography dated August 19. FINDINGS: BONES: Mild diffuse osseous demineralization. There is a complete transverse comminuted displaced fracture involving the neck of the humerus. The fracture line is seen extending into inferior articular surface of the humeral head as well as the greater t uberosity. There is almost half shaft width anterior displacement of the distal fracture fragment with mild superior migration (approximately 1.9 cm) and impaction. The glenohumeral alignment is well-maintained. No suspicious focal osseous lesion is seen. Note is made of compression fracture of indeterminate age T1 vertebral body and possible superior endplate compression of T2. Visualized ribs do not show any overt fracture, however the evaluation is limited by subtle motion artifacts. SOFT TISSUES: Mild soft tissue edema surrounding the shoulder joint. No localized fluid collection or any hematoma formation. No effusion or evidence of tendon entrapment. No disproportionate muscle atrophy.OTHER: Note is made of severe centrilobular emphysema in visualized lungs. Consolidative opacity inthe left lower lobe is partially visualized. Few nodular opacity in left upper lung. 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 These findings are better evaluated in recent CT pulmonary angiography 1. Complete transverse comminuted displaced, impacted fracture involving neck of the humerus extending into inferior articular surface humeral head and greater tuberosity 2. Compression fracture of indeterminate age T1 vertebral body and possible superior endplate compression of T2. 3. Consolidative opacity in the left lower lobe is partially visualized. Few nodular opacity in left upper lung. These findings are better evaluated in recent CT pulmonary angiography. If clinically indicated consider CT chest follow-up in 3 months. BY ELECTRONICALLY SIGNING THIS REPORT, I THE ATTENDING PHYSICIAN ATTEST THAT I HAVE REVIEWED THE IMAGES FOR THE ABOVE PROCEDURE(S) AND AGREE WITH THE FINDINGS DOCUMENTED. Guy Hummel MD, electronically signed on Aug 21 2025 10:44AM ECG 12 lead Result Date: 08/21/2025 Sinus rhythm with premature atrial depolarizations Minimal voltage criteria for LVH, may be normal variant ( Walker product ) Nonspecific T wave abnormality Inferior GA - indeterminate age Abnormal ECG When compared with ECG of 07-Aug-2025 13:31, premature ventricular depolarizations are no longerpresent premature atrial depolarizations are now present ST elevation now present in Anterior leads Shoulder 2+ Vw Left Result Date: 08/20/2025 INDICATION: s/p fall, surgery, pain, swelling ?fx; TECHNIQUE: Three views of the left shoulder COMPARISON: None. FINDINGS: A comminuted and impacted fracture of the left proximal humerus involves thehumeral head and surgical neck. No dislocation. Glenohumeral joint is preserved. Mild joint space narrowing of the acromioclavicular joint. Imaged left lung demonstrates chain sutures from prior leftupper segmentectomy. Generator pack for a pacer is seen in the left upper chest wall. Comminuted and impacted left proximal humeral fracture involving the humeral head and surgical neck. No dislocation. Akanksha Ríos MD, electronically signed on Aug 20 2025 11:03AM US Upper Extremity Venous Bilateral Result Date: 08/20/2025 EXAMINATION: US UPPER EXTREMITY VENOUS BILATERAL INDICATION: Edema, pain/tenderness TECHNIQUE: Greyscale and Doppler evaluation was performed on the bilateral upper extremity veins. COMPARISON: None. FINDINGS: There is normal flow with respiratory variation in the bilateral subclavian veins. The right internal jugular vein is patent, shows normal color flow, spectral doppler, and compressibility. The right brachial veins are patent and show compressibility. The right axillary vein is not compressible and does not show normal [id number] color flow, consistent with nonocclusive thrombus in the right axillary vein. The rest of the exam was not performed as the patient was unable to toleratethe exam due to pain. 1. Nonocclusive deep vein thrombus of the right axillary vein. 2. This study only assessed bilateral subclavian, right internal jugular, right brachial, and right axillary veins. The rest of upper extremities were not assessed as the patient was unable to tolerate the exam due to pain. NOTIFICATION: The findings were discussed with, and acknowledged by Dr. Albin Puentes by Dr. Sherry Valladares, using [employer] Secure Chat on 08/20/2025 at 9:53 am, 3 minutes after discovery of the findings. BY ELECTRONICALLY SIGNING THIS REPORT, I THE ATTENDING PHYSICIAN ATTEST THAT I HAVE REVIEWED THE IMAGES FOR THE ABOVE PROCEDURE(S) AND AGREE WITH THE FINDINGS DOCUMENTED. Sherry Gomez MD, electronically signed on Aug 20 2025 10:38AM XR Chest 1 Vw Portable Result Date: 08/19/2025 EXAMINATION: XR CHEST 1 VW PORTABLE INDICATION: sob, cough /pna; TECHNIQUE: Semi-upright AP view ofthe chest COMPARISON: CTA chest 19 August 2025 at 18:44 and 07 August 2025, chest radiograph 07 August 2025 FINDINGS: Left-sided pacer with leads in the right atrium and right ventricle, unchanged.Mild cardiomegaly is similar. Mediastinal and hilar contours are unchanged. No pulmonary edema. Diffuse increased interstitial opacities are again noted and related to underlying severe emphysema. Patchy airspace opacities are again noted in the lower lobes which is concerning for pneumonia. No pleural effusion or pneumothorax. No acute osseous abnormalities. Partially imaged comminuted left proximal humeral fracture. Status post right shoulder arthroplasty with the humeral head component demonstrating anterior dislocation. Contrast from recent CT examination is seen in the renal collectingsystems bilaterally. Patchy bilateral lower lobe opacities suggesting pneumonia as seen on prior CT. Partially imaged comminuted left proximal humeral fracture and anteriorly dislocated humeral component of a right shoulder arthroplasty. Akanksha Ríos MD, electronically signed on Aug 19 2025 10:25PM XR Shoulder 2+ Vw Right Result Date: 08/19/2025 INDICATION: s/p fall, surgery, pain, swelling ?fx; TECHNIQUE: Right shoulder, three views COMPARISON: CT chest 07 August 2025 and right shoulder radiographs 14 August 2025 FINDINGS: Status post right shoulder arthroplasty with persistent anterior, medial and inferior displacement of the humeral head component relative to the glenoid. No acute fracture. Acromioclavicular joint demonstrates milddegenerative changes. Fragmentation of the acromion appears chronic. No periarticular soft tissue calcifications. Severe emphysema is noted in the imaged right lung. 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 No acute fracture. Akanksha Ríos MD, electronically signed on Aug 19 2025 10:25PM XR Elbow 3+ VW Right Result Date: 08/19/2025 INDICATION: elbow pain; TECHNIQUE: AP and lateral views of the elbows bilaterally COMPARISON: None.FINDINGS: On the left, no acute fracture or dislocation. No elbow joint effusion. Mild degenerativechanges of the humeroulnar joint. No concerning lytic or sclerotic osseous abnormality. No embeddedradiopaque foreign body or soft tissue calcification. On the right, no acute fracture or dislocation. No elbow joint effusion. Mild degenerative changes of the ulnohumeral joint. No suspicious lyticor sclerotic osseous abnormality. Mild soft tissue irregularity is seen along the dorsal aspect of t he elbow. No acute fracture or dislocation involving either elbow. Akanksha Ríos MD, electronically signed on Aug 19 2025 10:24PM XR Elbow 3+ VW Left Result Date: 08/19/2025 INDICATION: elbow pain; TECHNIQUE: AP and lateral views of the elbows bilaterally COMPARISON: None.FINDINGS: On the left, no acute fracture or dislocation. No elbow joint effusion. Mild degenerativechanges of the humeroulnar joint. No concerning lytic or sclerotic osseous abnormality. No embeddedradiopaque foreign body or soft tissue calcification. On the right, no acute fracture or dislocation. No elbow joint effusion. Mild degenerative changes of the ulnohumeral joint. No suspicious lytic or sclerotic osseous abnormality. Mild soft tissue irregularity is seen along the dorsal aspect of th e elbow. No acute fracture or dislocation involving either elbow. Akanksha Ríos MD, electronically signed on Aug 19 2025 10:24PM CT Angiogram Chest PE : Arteriogram Addendum Date: 08/19/2025 ADDENDUM The patient is status post right shoulder arthroplasty (not reverse shoulder arthroplasty). The anterior dislocation of the humeral head component relative to the glenoid appears similar compared to the prior CTA chest from August 07, 2025. Akanksha Ríos MD, electronically signed on [id number] 08:47PM Result Date: 08/19/2025 EXAMINATION: CTA CHEST WITH CONTRAST INDICATION: pt w/ sob, chest pain, tachycardia; TECHNIQUE: Axial multidetector CT images were obtained through the thorax after the uneventful administration of intravenous contrast including reformatted coronal, sagittal, and oblique and axial maximal intensityprojection (MIP) images. DOSE: Acquisition sequence: 1) Stationary Acquisition 0.5 s, 0.5 cm; CTDIvol = 3.0 mGy (Body) DLP = 1.5 mGy-cm 2) Stationary Acquisition 2.0 s, 0.5 cm; CTDIvol = 12.1 mGy (Body) DLP = 6.1 mGy-cm 3) Spiral Acquisition 4.1 s, 30.6 cm; CTDIvol = 8.2 mGy (Body) DLP = 252.0 mGy-cm Total DLP (Body) = 260 mGy- cm COMPARISON: CTA chest 07 August 2025 FINDINGS: VASCULATURE: Main pulmonary artery is borderline enlarged at 3.1 cm. No filling defects to the subsegmental level to indicate a pulmonary embolism. Ascending aorta demonstrates fusiform dilatation to 4.2 cm and the descending thoracic aorta is dilated up to 3.4 cm, as seen previously. No aortic dissection or intramural hematoma. HEART: Mild cardiomegaly. Pacing leads terminate within the right atrium and right ventr icle. Moderate coronary artery calcifications. No significant pericardial effusion. AXILLA, MARCELL, AND MEDIASTINUM: No lymphadenopathy or mass. The esophagus is patulous which can be seen with esophageal dysmotility. PLEURAL SPACES: No pleural effusion or pneumothorax. LUNGS: Heterogeneous consolidative opacities in both lower lobes can be seen with pneumonia. Severe centrilobular emphysema is again demonstrated. AIRWAYS: Airway wall thickening suggesting inflammation is noted. Central airways are patent to the segmental bronchial level. BASE OF NECK: 5 mm rim calcified thyroid nodule is notedwhich does not require specific sonographic follow-up. ABDOMEN: Visualized upper abdomen unremarkable. BONES: A comminuted left proximal humeral fracture is incompletely imaged. Status post right reverse shoulder arthroplasty with anterior subluxation/dislocation of the hardware relative to the glenoid. A subacute fracture of the sternum is noted (602:74). Compression deformities of the T1 and T11 vertebral bodies are unchanged. SOFT TISSUES: Soft tissue stranding is seen within the left shoulder secondary to the humeral fracture. 1. No pulmonary embolism or acute aortic pathology. 2. Severe emphysema with mild dilatation of thepulmonary artery measuring up to 3.1 cm, unchanged, which can be seen with pulmonary arterial hypertension. 3. Mild dilatation of the ascending and descending thoracic aorta, unchanged. See recommendations below. 4. Heterogeneous consolidative opacities in both lower lobes may reflect pneumonia. 5.Acute, comminuted left proximal humeral fracture. 6. Status post reverse right shoulder arthroplasty with anterior subluxation/dislocation of the humeral component relative to the glenoid. 7. Chroniccompression deformities of T1 and T11 vertebral bodies. RECOMMENDATION(S): Follow-Up Imaging: Thoracic aorta 4.0 - 4.4 cm in diameter - if stable findings at 12 months or interval increase in diameter is < 3 mm, consider follow-up with ECG-gated chest CTA in 2 years. Management recommendations for follow-up of thoracic aortic aneurysm are based on existing literature and multidisciplinary consensus document of our institution, including Cardiology, Vascular Surgery, and Cardiac Surgery and it is specifically designed for this program. Siminelbachana EM, et al. ACC/AHA Guideline for the Diagnosis and Management of Aortic Disease: A Report of the [place] [employer] College ofCardiology Joint Committee on Clinical Practice Guidelines. Circulation 202; 146:g264-a120. Erbel R, et al. ESC Guidelines on the diagnosis of thoracic and abdominal aorta of the adult. Eur Heart J 2014;35:5379-5202. Cindy TURCIOS, et al. The Society of Vascular Surgery practice guidelines on the care of patients with an abdominal aortic aneurysm. J Vasc Surg 2018;67:2-77. Joseph V, et al. Management of Descending Thoracic Aortic Disease: Clinical Practice Guidelines of the Society of Vascular Surgery. Eur J Vasc Endovasc Surg 2017;53:4-52. Akanksha Ríos MD, electronically signed on Aug 19 2025 07:13PM US Lower Extremity Venous Left Result Date: 08/19/2025 EXAMINATION: US LOWER EXTREMITY VENOUS LEFT INDICATION: Left lower extremity pain and edema. TECHNIQUE: Mullen scale, color, and spectral Doppler evaluation was performed on the left lower extremity veins. The patient could not tolerate evaluation of the calf veins. COMPARISON: None. FINDINGS: There is normal compressibility, color flow, and spectral doppler of the left common femoral, femoral, andpopliteal veins. The patient was unable to tolerate evaluation of the calf veins. There is normal respiratory variation in the common femoral veins bilaterally. No evidence of medial popliteal fossa ([place]) cyst. Unable to evaluate the calf veins, but there is no evidence of deep venous thrombosis in the other left lower extremity veins. BY ELECTRONICALLY SIGNING THIS REPORT, I THE ATTENDING PHYSICIAN ATTEST THAT I HAVE REVIEWED THE IMAGES FOR THE ABOVE PROCEDURE(S) AND AGREE WITH THE FINDINGS DOCUMENTED. Geo Ríos MD, electronically signed on Aug 19 2025 07:17PM CT Cervical Spine Without Contrast Result Date: 08/19/2025 EXAMINATION: CT CERVICAL SPINE WO CONTRAST INDICATION: s/p fall; TECHNIQUE: Contiguous axial imagesobtained through the cervical spine without intravenous contrast. Coronal and sagittal reformats were reviewed. DOSE: Acquisition sequence: 1) Sequenced Acquisition 18.0 s, 18.0 cm; CTDIvol = 50.2 mGy (Head) DLP = 903.1 mGy-cm 2) Spiral Acquisition 5.7 s, 21.2 cm; CTDIvol = 24.5 mGy (Body) DLP = 518.9 mGy-cm Total DLP (Body) = 519 mGy-cm Total DLP (Head) = 903 mGy-cm Note: This radiation dose report was copied from accession #[id number] (CT HEAD WO CONTRAST) COMPARISON: CT chest 07 August 2025 FINDINGS: Reversal of the normal cervical lordosis is demonstrated. No traumatic malalignment. R otation of C1 on C2 is likely due to head positioning within the scanner. No definite acute fractures are identified. There is moderate anterior height loss of the T1 vertebral body, unchanged from prior CT from July 2025. Dopc-id-xgmuvyga multilevel degenerative changes with intervertebral disc space narrowing, endplate sclerosis, and osteophyte formation. No high-grade central canal stenosis. Mild multilevel neural foraminal stenosis without high-grade narrowing.There is no prevertebral edema. Stranding in the left supraclavicular soft tissues relates to a left proximal humeral fractureas seen on the biochemistry teacher views. Severe emphysema is noted in the left lung apex. Thyroid gland demonstra kasi a rim calcified 5 mm nodule on the right which does not require dedicated imaging follow-up. 1. No acute cervical spine fracture or traumatic malalignment. 2. Left proximal humeral fracture imaged on the biochemistry teacher view. 3. Chronic compression deformity of the T1 vertebral body. Akanksha Ríos MD, electronically signed on Aug 19 2025 06:57PM CT Head Without Contrast Result Date: 08/19/2025 EXAMINATION: CT HEAD WO CONTRAST [id number] CT BID-HEAD INDICATION: s/p fall; TECHNIQUE: Contiguous axial images of the brain were obtained without contrast. Coronal and sagittal reformations as well as bone algorithm reconstructions were provided and reviewed. DOSE: Acquisition sequence: 1) Sequenced Acquisition 18.0 s, 18.0 cm; CTDIvol = 50.2 mGy (Head) DLP = 903.1 mGy-cm 2) Spiral Acquisition 5.7 s, 21.2 cm; CTDIvol = 24.5 mGy (Body) DLP = 518.9 mGy-cm Total DLP (Body) = 519 mGy-cm Total DLP (Head) = 903 mGy-cm COMPARISON: None. FINDINGS: There is no evidence of fracture, acute large territorial infarction, hemorrhage, edema, or mass. There is prominence of the ventricles and sulci suggestive of involutional changes. Moderate periventricular and subcortical white matter hypodensitiesare nonspecific, but likely reflect the sequela of chronic microvascular infarction. The visualizedportion of the paranasal sinuses, mastoid air cells, and middle ear cavities are clear. Patient is status post bilateral lens replacements. 1. No acute intracranial abnormality. Akanksha Ríos MD, electronically signed on Aug 19 2025 06:49PM XR Shoulder 2+ VW Right Result Date: 08/14/2025 EXAMINATION: XR SHOULDER 2+ VW RIGHT INDICATION: R Shoulder Pain; TECHNIQUE: Three views right shoulder COMPARISON: 01 August 2025 Redemonstrated reverse right shoulder arthroplasty with grossly intact hardware and maintained alignment. There is no acute fracture.. Slight interval decrease in streaky opacities in the right upperlung zone. Mild degenerative changes at the glenohumeral joint.. Kate Lugo MD, electronically signed on Aug 14 2025 02:56PM CT Angiogram Chest PE : Arteriogram Result Date: 08/08/2025 EXAMINATION: CTA CHEST WITH CONTRAST INDICATION: patient with new 02; TECHNIQUE: Axial multidetector CT images were obtained through the thorax after the uneventful administration of intravenous contrast including reformatted coronal, sagittal, and oblique and axial maximal intensity projection (MIP) images. DOSE: Acquisition sequence: 1) Sequenced Acquisition 0.5 s, 0.2 cm; CTDIvol = 7.2 mGy (Body) DLP = 1.4 mGy-cm 2) Stationary Acquisition 3.7 s, 0.2 cm; CTDIvol = 61.8 mGy (Body) DLP = 12.4 mGy-cm 3) Spiral Acquisition 5.4 s, 35.0 cm; CTDIvol = 12.6 mGy (Body) DLP = 431.5 mGy-cm Total DLP (Body) = 445 mGy-cm COMPARISON: Outside CT chest available in the [facility] 28 May 2025 FINDINGS: VASCULATURE: No pulmonary embolism to the subsegmental level. The ascending thoracic aorta is mildly dilated measuring up to 4.1 cm. There are mild atherosclerotic calcifications of the thoracic aorta. HEART: Normal heart size. Mild atheromatous coronary calcifications. No significant pericardial effusion. AXILLA, MARCELL, AND MEDIASTINUM: No lymphadenopathy or mass. Mildly dilated air- filled and patulous esophagus predominantly in the upper and midportion. PLEURAL SPACES: No pleural effusion or pneumothorax. LUNGS: Postsurgical changes from left upper posterior segmentectomy. Diffuse emphysematouschanges noted in bilateral lung villavicencio in the form of emphysematous bullae, more so in the bilateral upper lobes. Few patchy areas of ground-glass in noted in the apical segment of bilateral upper lobe,likely representing mild mosaic attenuation related to regional differences in ventilation. Fibroatelectatic changes noted involving the most of the right upper lobe, posterior and lateral segmentof right lower lobe and apicoposterior segment of left upper lobe. There is a 2.3 by 1.5 cm irregular subpleural consolidative opacity in the right lung base and an additional 16 mm subpleural nodular opacity in the medial right lung base. AIRWAYS: Patent central airways. There are filling defects noted in the anterior aspect of the left mainstem bronchus, likely secretions. Bilateral lower lobe p redominant diffuse bronchial wall thickening most pronounced in the right lower lobe with scatteredareas of mucous plugging. BASE OF NECK: Limited evaluation due to metallic artifacts from processesin right humerus, grossly normal. Lines and tubes: Trans subclavian atrial ventricular pacer leads continuous from left pectoral generator flow expected course. ABDOMEN: The study is not tailored for subdiaphragmatic evaluation. Partially imaged small hepatic cyst. Partially imaged scattered calcifications in the pancreas likely sequela of chronic pancreatitis BONES: Reduced height T1 and T10 vertebral body noted, likely compression fracture. Visualized spine shows degenerative changes in the form of osteophytes. Mild scoliosis with convexity towards right side. SOFT TISSUES: Unremarkable. No evidence of acute pulmonary embolism or aortic abnormality. Bilateral lower lobe predominant diffuse bronchial wall thickening most pronounced in the right lower lobe with areas of mucoid impaction. Subpleural nodular consolidative opacities in the right lung base, likely infectious or inflammatory etiology possibly related to aspiration. Stable postsurgical changes left upper lobe. Mildly dilated air-filled and patulous esophagus, may be related to reflux/dysmotility. Other stable findings BY ELECTRONICALLY SIGNING THIS REPORT, I THE ATTENDING PHYSICIAN ATTEST THAT I HAVE REVIEWED THE IMAGES FOR THE ABOVE PROCEDURE(S) AND AGREE WITH THE FINDINGS DOCUMENTED. Noble Clements MD , Kate Lugo MD, electronically signed on Aug 08 2025 11:37PM US Upper Extremity Venous Right Result Date: 08/08/2025 EXAMINATION: US UPPER EXTREMITY VENOUS RIGHT INDICATION: Right upper extremity edema. TECHNIQUE: Mullen scale and Doppler evaluation was performed on the right upper extremity veins. COMPARISON: None. FINDINGS: There is normal flow with respiratory variation in the bilateral subclavian veins. The right internal jugular, axillary, and brachial veins are patent, show normal color flow, spectral doppler, and compressibility. The right basilic, and cephalic veins are patent, compressible and show normal color flow. No evidence of deep vein thrombosis in the right upper extremity. BY ELECTRONICALLY SIGNING THIS REPORT, I THE ATTENDING PHYSICIAN ATTEST THAT I HAVE REVIEWED THE IMAGES FOR THE ABOVE PROCEDURE(S) AND AGREE WITH THE FINDINGS DOCUMENTED. Shivani Mcelroy MD , David Duran MD, electronicallysigned on Aug 08 2025 05:11PM XR Chest 1 VW Result Date: 08/08/2025 EXAMINATION: XR CHEST 1 VW INDICATION: increased 02 post op; increased 02 post op; TECHNIQUE: AP portable chest. COMPARISON: 06 August 2025 chest radiograph Since 06 August 2025 chest radiograph, stable nonspecific interstitial opacities, most notable inthe right upper lung. These opacities may represent pneumonia in the appropriate clinical context, although they may also represent chronic emphysematous changes or other chronic disease. Recommend CT chest with contrast for further evaluation. No significant pneumothorax. No significant pleural abnormality. Mildly increased retrocardiac opacity may be minimal atelectasis. Unremarkable cardiomediastinal silhouette. Monitoring and support devices are unchanged. Multiple serpiginous opacities distributed throughout the view of the hemithorax are likely outside of the patient. RECOMMENDATION(S):CT chest with contrast NOTIFICATION: The findings were discussed with, and acknowledged by Ching Martin by Dr. Cristopher Perry, using [employer] Secure Chat on 08/07/2025 at 3:01 pm, 5 minutes after discovery of the findings. BY ELECTRONICALLY SIGNING THIS REPORT, I THE ATTENDING PHYSICIAN ATTEST THAT I HAVE REVIEWED THE IMAGES FOR THE ABOVE PROCEDURE(S) AND AGREE WITH THE FINDINGS DOCUMENTED. Duran Chaudhari MD, electronically signed on Aug 08 2025 09:02AM ECG 12 lead Result Date: 08/07/2025 Sinus rhythm with frequent premature ventricular depolarizations and atrial paced complexes Inferior infarct , age undetermined Abnormal ECG When compared with ECG of 06-Jul-2025 09:09, Inferior infarct is now present Chest 1 VW Portable Result Date: 08/06/2025 EXAMINATION: XR CHEST 1 VW PORTABLE INDICATION: 74F history of emphysema now with shortness of breath despite nebulizers; There are no prior chest radiographs. The combination of severe emphysema and moderate interstitialpulmonary abnormality could all be smoking related. However without prior chest radiographs I can not tell if the interstitial abnormality is an acute problem such as mild pulmonary edema and perhapseven concurrent right upper lobe pneumonia. Any prior chest radiographs performed elsewhere should be obtained for qnsi-pr-aday comparison. Heart size is normal. No appreciable pleural abnormality ispresent. Trans subclavian atrial ventricular pacer leads continuous from the left pectoral generator follow expected courses. Romel Glynn MD, electronically signed on Aug 06 2025 09:04AM Assessment and Plan: 74 y.o. 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 S/p R shoulder IR aspiration 08/22 with no culture growth. Patient currently inpatientwith continued pain control. PLAN # Pain control # History of Opioid Use Disorder, on suboxone Pt with a history of opioid use disorder in setting of opioids for pancreatitis, recently started on suboxone (May). Requiring high amounts of opioids in this setting given her humerus fractureand post-R shoulder hemiarthroplasty. - Continue low dose suboxone, increased to TID on 08/27 per chronic pain recommendations - Started Lyrica 75 mg BID 08/26 - Chronic pain consulted, appreciate recommendations: S/p Morphine SATURATION DIVER 08/22-08/28 Switched to Morphine 60 mg PO Q4H PRN + Morphine IV, per their last note, switched to PO oxycodone 10 mg PO q4h PRN Added on methocarbamol 500 mg QID on 08/27 IV acetaminophen for now, by pt request # L proximal humerus comminuted transverse fracture s/p fall # Significant LUE edema Pt with a mechanical fall after misjudging where the toilet seat is and falling onto her L shoulder. Given persistent pain, presented to the ED. CT scan of L humerus showed acceptable alignment amenable to non-operative treatment with immobilization in a sling; however, pt unable to tolerate sling consistently with continued pain. Repeat LUE XR with interval callus formation and no new dislocation or fracture. - Ortho following, will plan for 1-2 week follow-up with L shoulder X-Ray LUE wrapped for compression due to edema with distal pulse, sensation, and motion checks every shift Re-engaged on 08/28 given continued pain, and significant swelling - Activity restrictions: can come out of the sling for gentle pendulum range of motion. She may usethe left upper extremity for light activity daily living but no heavy lifting more than 5 pounds (coffee cup weight bearing) - Pain control, see #Pain control as above - Appreciate OT evaluation # C/F R Wrist Drop Pt with R wrist pain and difficulty with voluntary extension. Ortho examined on 08/28 and not concerned about septic wrist, but are concerned for possible nerve impingement. - Follow-up R humerus XR - Neurology consult, obtaining MRI right brachial plexus, awaiting study - for MRI, pt requesting 2 mg PO Ativan, which is four times her home dose; do not feel comfortableordering this; will keep at 1 mg # R shoulder swelling/pain, c/f R shoulder septic arthritis # Chronic R rotator cuff arthropathy s/p R total shoulder arthroplasty 07/11/25, conversion to R shoulder hemiarthroplasty with glenoid and humeral implant on 08/01/25 # Chronic right shoulder dislocation Pt with increased R shoulder pain and swelling post-surgery on 08/01 w/concern for possible septic joint w/CRP of 293. Initially given antibiotics, but d/c'ed for IR procedure on 08/20 to increase yield of IR tap on 08/22. Joint cultures NGTD. X ray showing chronic anterior dislocation of the humeral head relative to the glenoid, ortho reviewed and no acute intervention required, and will follow-up OP (Dr. Goins). - S/p vanc/cefepime on 08/19 - See #Pain control as above # Acute on chronic hypoxic respiratory failure (bl 4L NC) # C/f HAP # Leukocytosis, improved # Consolidative opacities in both lower lobes (from CT chest 08/19) # COPD without exacerbation Pt with noted consolidative opacities in both lower lobes from CT chest, initially w/o respiratory symptoms and baseline 4L NC. However, pt developed increased O2 requirements overnight, likely positional or 2/2 mucoid impaction; however, CXR still with evidence of PNA. Given pt was at rehab prior to current admission, treated recently for PNA with bactrim (08/01-08/10), and significant underlying lung disease will plan to treat for HAP. On 08/25, pt lost IV access and her IV antibiotics were transitioned to PO linezolid + levofloxacin. Overall, given pt's clinical stability very low concern for true MRSA HAP despite + MRSA swab, thus will plan to complete course of HAP coverage with Levofloxacin. - Vanc/Cefepime 08/23 - 08/25, Linezolid 08/26, Levofloxacin 08/26 - 08/29 - ANALYTICAL DATA MINER consultation appreciated, ok for regular diet - Continue home Dulera + Spiriva - IS # Moderate hyponatremia, improving Pt with Na of 125 08/25. Overall most concerned for hypovolemic hyponatremia vs tea and toast givenpt unable to feed herself consistently. Of note, patient also getting vancomycin in Dextrose which could be contributing. Last diuretic dose on 08/22. Urine studies consistent with ADH being on givenUrine osms > 200. Urine Na is > 20, FeUrea < 55%. With IVF trial, Na increased, consistentwith likely low EABV though if pt does have SIADH it is likely in setting of uncontrolled pain. - Continue to monitor Na # Urinary retention Pt with urinary retention this admission. Think that it is likely multifactorial, likely related tosome underlying pelvic floor dysfunction (pt was having trouble urinating prior to this hospitalization) + constipation from opioid use/decreased hydration + immobility. UA w/o evidence of infection. - Straight cath x4 - Helton placed overnight 08/25 - 08/26 - TOV attempted on 08/29, unsuccessful; Helton replaced # Access Pt with very difficult upper extremity access given RUE DVT + L humerus proximal fracture and resulting edema. Given need for SATURATION DIVER + other intermittent IV medication needs, including electrolyte repletion + frequent lab draws, will pursue central line placement as PICC/midline are not options. - IR consult for temp access, placed # New R axillary vein DVT Pt with worsening R arm pain post-fall on L shoulder, w/increased swelling over right shoulder and lower arm. She was found on admission to have a new R axillary vein DVT. - Hep gtt started 08/20. Does not need to hold for IR drain of R shoulder. - Switched to apixaban on 08/25 # Constipation -Senna/miralax scheduled + bisacodyl suppository PRN CHRONIC CONDITIONS # Chronic HFrEF Nt-proBNP was normal 125 on admission w/no signs/symptoms of volume overload. - on home lasix 20mg MWF, restart 08/22 due to initial hypotension in ED (improved with 1L NS) - was holding entresto given hypotension, resumed 08/21 - daily weights, strict I&O # SSS s/p dcICD # NSVT PVC burden of 10% on prior Zio. - change metop succ 12.5 bid -> metop tart 12.5 bid given hypotension on arrival, now currently low 100s # Chronic iron deficiency anemia - baseline hb 9-10s - iron low on 08/03, ferritin 101. - continue po iron # Moderate malnutrition has lost >30lbs over last 6 months d/t poor appetite. Hypocalcemia corrected to ~9 w/albumin. - multivitamins, ensure tid, nutrition consult. Need help with food due to b/l arm pain # Hypothyroidism - levothyroxine 50 # Anxiety/depression - ativan 0.5 bid -> changed to BID PRN due to high dose opioid use, c/h paroxetine 20 # GERD - omeprazole # HLD - lipitor. # Nonobstructive CAD - asa 81, stop while on therapeutic AC for now Core Measures Nutrition: Oral. Hydration: Oral. Functional status: Out of bed to chair with assist. Bowel Function: Constipated. Lines/Tubes/Drains: Peripheral IV. VTE prophylaxis: Therapeutic anticoagulation. Living Situation: lives alone. Though recently coming from rehab. PAML Status: The preadmission medication list is ACCURATE and COMPLETE.. Anticipated Disposition: Acute rehabilitation vs SNF. Anticipated Length of Stay: 4-5 days. Advanced Care Planning: Full Code. Contacts/HCP/Surrogate: Extended Emergency Contact Information Primary Emergency Contact: Ashanti Green Address: [address] [place] [address] [place] Mobile Relation: Daughter Secondary Emergency Contact: Rory Craft Address: [address] [place] [address] [facility] Mobile Relation: Son E/M Services: I spent 50 minutes in this clinical encounter reviewing the medical record, seeing and examining the patient, placing orders, writing notes, performing signout, and communicating with the applicable medical and nursing teams. Eloy Gomez MD Attending Physician Section of Hospital Medicine [facility] Complexity Bundle Hyponatremia (present on admission) : Labs repeated - Sodium of 130 on 08/27/2025 Fluid overload: Received IV Diuretics - IV diuretics given on 09/03/2025 Anemia secondary to chronic disease and inflammation (present on admission) : Labs repeated - Hemoglobin of 7.4 on 09/03/2025 Acute on Chronic Systolic Heart Failure : Treating Moderate Chronic Malnutrition (present on admission) : Assessed - Severity based on ASPEN criteria as documented by the cad manager and is ordered for vitamin/mineral supplementation * Eloy Gomez MD - 09/02/2025 10:28 AM EST HOSPITAL MEDICINE PROGRESS NOTE Patient: Mayra Craft Admit Date: 08/19/2025 LOS: 13 days Primary Care Physician: Vanessa Culver MD Interval Events: Patient received IV acetaminophen x 1. Subjective: Patient reports no chest pain or dyspnea. The pain in her upper extremities is stable. There are nofevers or chills. She reports no abdominal pain. Physical Exam Temp: [97.2 ??F (36.2 ??C)-98.4 ??F (36.9 ??C)] 97.2 ??F (36.2 ??C) Heart Rate: [60-73] 64 Resp: [12-20] 18 BP: (107-145)/(42-69) 123/69 SpO2: [91 %-99 %] 95 % Stool Assessment Stool Occurrence: 1 Bowel Incontinence: Yes Stool Amount: Small Stool Appearance: Loose Stool Color: Brown Last BM Date: 09/01/25 Stool Amount: Small Stool Appearance: Loose Stool Color: Brown Last BM Date: 09/01/25 0-10 Pain Score : 8 (09/02/2025 6:07 AM) Pain Location: Shoulder (09/02/2025 12:30 AM) Pain Orientation: Right; Left (09/02/2025 12:30 AM) General: Appears uncomfortable. HEENT: No scleral icterus. No conjunctival injection. Pulmonary: No increased work of breathing, on 4 L NC. Lungs with no wheezing, rales. Cardiovascular: Regular rate and rhythm. No murmurs, gallops, or rubs. Abdominal: Soft, mildly distended, non-tender to palpation. Extremities: No lower extremity edema. Warm and well perfused. MSK: Pt with large area of bruising around left arm (within marked area) and improving with ROM intact at shoulder, limited at elbow due to pain. LUE with improved swelling with compression with cori wrapping. RUE with 2+ pitting edema in the proximal arm. Mild tenderness to palpation over right upper arm with c/d/I incision scar anteriorly + preserved ROM at shoulder, ROM limited over elbow due to pain. R wrist with bruising over R wrist, pain with flexion, improvement on extension--ROM intact though with pain. Neuro: Vision and hearing grossly intact. Face symmetric. Moving all four extremities purposefully. Psych: Alert and oriented. Normal affect. Lines: Helton in place Data: I have reviewed the relevant labs, radiology studies, tracings, medical records, and they are notable for Results for orders placed or performed during the hospital encounter of 08/19/25 (from the past 24 hours) CBC Result Value Ref Range WBC 5.48 4.00 - 10.00 K/uL RBC 2.75 (L) 3.90 - 5.20 M/uL Hemoglobin 7.7 (L) 11.2 - 15.7 g/dL Hematocrit 25.0 (L) 34.0 - 45.0 % MCV 91 82 - 98 fL MCH 28.0 26.0 - 32.0 pg MCHC 30.8 (L) 32.0 - 37.0 g/dL RDW 16.5 (H) 10.5 - 15.5 % RDW-SD 53.1 (H) 35.1 - 46.3 fL Platelet Count 271 150 - 400 K/uL Nucleated RBC 0 <=0 #/100 WBC C-Reactive Protein Result Value Ref Range C-Reactive Protein (CRP) 65.7 (H) 0.0 - 5.0 mg/L Renal Function Panel Result Value Ref Range Sodium 131 (L) 135 - 147 mmol/L Potassium 3.9 3.5 - 5.4 mmol/L Chloride 97 96 - 108 mmol/L Total CO2/Bicarbonate 31 22 - 32 mmol/L Anion Gap 3 (L) 4 - 16 mmol/L BUN 22 (H) 6 - 20 mg/dL Creatinine, Blood 0.40 0.40 - 1.10 mg/dL Glucose, Blood 106 (H) 70 - 100 mg/dL Calcium 8.0 (L) 8.4 - 10.3 mg/dL Albumin, Blood 2.3 (L) 3.5 - 5.2 g/dL Phosphorus 3.1 2.7 - 4.5 mg/dL Magnesium, Blood 2.1 1.6 - 2.6 mg/dL XR Humerus 2+ VW Right Result Date: 09/01/2025 EXAMINATION: XR HUMERUS 2+ VW RIGHT INDICATION: c/f R humerus pathology given r wrist drop; TECHNIQUE: Frontal view radiographs of the right humerus. COMPARISON: Radiographs of the right shoulder from 19 August 2025. FINDINGS: There is diffuse osteopenia. At the right shoulder, again seen is a right humeral arthroplasty. There is persistent anterior/subcoracoid dislocation of the right humeral head component relative to the glenoid. No obvious loosening or displacement of the humeral prosthesis is suggested on these images. Distal to the prosthesis, the right humerus is intact and no lucent or sclerotic fracture line or displaced fracture fragment is detected in the humerus. No obvious focal lytic or sclerotic bone lesion detected in the right humerus. No bony exostosis. No soft tissue calcification or unexpected radiopaque foreign body. Assessment of the right elbow joint is limited, but right elbow appears congruent, probably with mild changes of osteoarthritis. Again seen are coars ened lung markings in the included portion of the right lung. 1. Diffuse osteopenia. 2. No right humeral fracture detected on these views. 3. Again seen is the right humeral hemiarthroplasty, with anterior subcoracoid dislocation of the right humeral head with respect to the glenoid. If there remains clinical concern for nerve compression, consider MRI for further evaluation. BY ELECTRONICALLY SIGNING THIS REPORT, I THE ATTENDING PHYSICIAN ATTEST THAT I HAVE REVIEWED THE IMAGES FOR THE ABOVE PROCEDURE(S) AND AGREE WITH THE FINDINGS DOCUMENTED. Sunni Mercado MD, electronically signed on Sep 01 2025 11:10AM XR Shoulder 2+ VW Left Result Date: 08/29/2025 EXAMINATION: XR SHOULDER 2+ VW LEFT INDICATION: pt with known L proximal humerus comminuted fracture with significant edema + continued pain, XR for worsening of fracture; TECHNIQUE: Frontal and Grashey view radiographs of the left shoulder. COMPARISON: Radiographs of the left shoulder from 19 August 2025. FINDINGS: Partially-imaged left-sided dual lead cardiac device noted. Again seen is the comminuted and impacted fracture of the left proximal humerus involving the humeral head and surgical neck. Fracture lines remain visible, though with interval callus formation. No evidence of acromioclavicular or glenohumeral joint dislocation. No new fracture detected. Probable diffuse osteopenia. Left lower lung opacity seen on frontal and oblique views. This appears more pronounced than on the 2024 left shoulder radiographs. Recommend further evaluation with dedicated chest x-ray. Surgical sutures noted in the left lung. RECOMMENDATION(S): Chest x-ray. NOTIFICATION: The findingsand recommendations above were discussed with, and acknowledged by Dr. Mayra Craft by Dr. Sunni Pham, using [employer] Secure Chat on 08/28/2025 at 3:24 pm, 2 minutes after discovery of the findings. BY ELECTRONICALLY SIGNING THIS REPORT, I THE ATTENDING PHYSICIAN ATTEST THAT I HAVE REVIEWED THE IMAGES FOR THE ABOVE PROCEDURE(S) AND AGREE WITH THE FINDINGS DOCUMENTED. Sunni Mercado MD, electronically signed on Aug 29 2025 03:22PM XR Chest 1 VW Portable Result Date: 08/28/2025 EXAMINATION: XR CHEST 1 VW PORTABLE INDICATION: incidentally noted LLL consolidation; TECHNIQUE: Chest portable AP COMPARISON: Multiple prior studies, most recent chest radiograph dated 08/23/2025. Retrocardiac and right basilar opacifications appear grossly similar and are better assessed by therecent chest CT. Diffuse reticular opacities are also better assessed by the previous chest CT, probably representing extensive emphysema. Superimposed inflammation is possible. Otherwise no significant interval change in the appearance of the chest. Kristopher Hickey MD, electronically signed on Aug 28 2025 04:02PM ECG 12 lead Result Date: 08/28/2025 Sinus rhythm with premature atrial depolarizations When compared with ECG of 23-Aug-2025 00:35, No significant change was found Temporary Access Catheter Placement Result Date: 08/27/2025 INDICATION: Inability to obtain or maintain peripheral venous access COMPARISON: None. TECHNIQUE: OPERATORS: Dr. Mckeon, attending interventional radiologist performed the procedure. ANESTHESIA: Local only Fluoro time 15 seconds Radiation Dose: <1 mGY PROCEDURE: PROCEDURE DETAILS: Following the explanation of the risks, benefits and alternatives to the procedure, written informed consent was obtained from the patient. The patient was then brought to the angiography suite and placed supine on the exam table. A pre-procedure time-out was performed per [facility] protocol. The right neck was preppedand draped in the usual sterile fashion. Under continuous ultrasound guidance, the patent right internal jugular vein was compressible and accessed using a micropuncture needle. Permanent ultrasound images were obtained before and after intravenous access, which confirmed vein patency. Subsequentlya Nitinol wire was passed into the IVC using fluoroscopic guidance. The needle was exchanged for a micropuncture sheath. The Nitinol wire was removed and an 0.035 wire was advanced into the IVC. A triple lumen central catheter was advanced over the wire into the superior vena cava with the tip in the cavoatrial junction. All 3 access ports were aspirated, flushed and capped. The catheter was secured to the skin with a 0 silk suture and sterile dressings were applied. Final spot fluoroscopic image demonstrating good alignment of the catheter and no kinking. The patient tolerated the procedure well without immediate complications. FINDINGS: Patent right internal jugular vein. Final fluoroscopic image showing the catheter tip terminating in the distal superior vena cava. Successful placement of a 7 Fr 16 cm triple-lumen temporary central venous catheter via the right internal jugular venous approach. The tip of the catheter terminates in the distal superior vena cava. The catheter is ready for use. Sammi Mckeon MD, electronically signed on Aug 27 2025 01:44PM XR Abdomen Portable Result Date: 08/25/2025 INDICATION: LUQ abdominal pain; TECHNIQUE: Portable supine abdominal radiograph was obtained. COMPARISON: None Nonspecific bowel gas pattern with gas noted throughout nondilated small bowel loops in the midlineand: To the level of rectum. There is a single dilated loop of bowel probably small bowel loop in the left upper quadrant suggestive of focal ileus or could be splenic flexure. Moderate stool burden in the right side of the colon. Suboptimal study for evaluation of free air however no gross pneumoperitoneum. There are degenerative changes in the spine Kate Lugo MD, electronically signed on Aug 25 2025 03:52PM XR Hand 3+ VW Right Result Date: 08/24/2025 EXAMINATION: XR WRIST 3+ VW RIGHT; XR HAND 3+ VW RIGHT INDICATION: pt with fall and continued r wrist and hand pain.; TECHNIQUE: Frontal, oblique, and lateral view radiographs of right hand and wristCOMPARISON: None available. No acute fractures or dislocations are seen. Mild degenerative changes of the first carpometacarpaljoint in setting of osteophytosis. Mild negative ulnar variance. No bone erosion or periostitis. Nosuspicious lytic or sclerotic lesion. No soft tissue calcifications or radiopaque foreign body. No significant carpal bone malalignment. BY ELECTRONICALLY SIGNING THIS REPORT, I THE ATTENDING PHYSICIAN ATTEST THAT I HAVE REVIEWED THE IMAGES FOR THE ABOVE PROCEDURE(S) AND AGREE WITH THE FINDINGS DOCUMENTED. Geeta Hummel MD, electronically signed on Aug 24 2025 05:46PM XR Wrist 3+ VW Right Result Date: 08/24/2025 EXAMINATION: XR WRIST 3+ VW RIGHT; XR HAND 3+ VW RIGHT INDICATION: pt with fall and continued r wrist and hand pain.; TECHNIQUE: Frontal, oblique, and lateral view radiographs of right hand and wristCOMPARISON: None available. No acute fractures or dislocations are seen. Mild degenerative changes of the first carpometacarpaljoint in setting of osteophytosis. Mild negative ulnar variance. No bone erosion or periostitis. Nosuspicious lytic or sclerotic lesion. No soft tissue calcifications or radiopaque foreign body. No significant carpal bone malalignment. BY ELECTRONICALLY SIGNING THIS REPORT, I THE ATTENDING PHYSICIAN ATTEST THAT I HAVE REVIEWED THE IMAGES FOR THE ABOVE PROCEDURE(S) AND AGREE WITH THE FINDINGS DOCUMENTED. Geeta Hummel MD, electronically signed on Aug 24 2025 05:46PM ECG 12 lead Result Date: 08/24/2025 Sinus rhythm with premature atrial depolarizations Inferior infarct , age undetermined Abnormal ECGWhen compared with ECG of 21-Aug-2025 22:25, Inferior infarct is now present Chest 1 VW Portable Result Date: 08/23/2025 EXAMINATION: XR CHEST 1 VW PORTABLE INDICATION: Hypoxia, eval pneumonia, fluid overload, pneumothorax; TECHNIQUE: AP chest COMPARISON: Chest radiograph dated 08/19/2025 In comparison to study of August 19, there are similar bibasilar and retrocardiac opacifications, likely representing pneumonia. Similar diffuse increased interstitial opacities may represent underlying mild pulmonary edema and severe emphysema. No pleural effusion or pneumothorax. Cardiac silhouette size is normal. Similar position of the left chest wall pacer device leads. Left proximal humerus fracture is again noted. Guy Callahan MD, electronically signed on Aug 23 2025 07:31AM ECG 12 lead, to be obtained, dyspnea Result Date: 08/22/2025 Sinus rhythm with premature atrial depolarizations Right axis deviation When compared with ECG of 19-Aug-2025 17:25, Questionable change in QRS axis ST no longer elevated in Anterior leads MSK Injection / Aspiration - US Result Date: 08/22/2025 EXAMINATION: IR MSK INJECTION / ASPIRATION - US INDICATION: continued swelling of R shoulder, elevated CRP; TECHNIQUE: The risks, benefits, and alternatives were explained to the patient and written informed consent obtained. A pre- procedure timeout confirmed three patient identifiers. Under ultrasound guidance, an appropriate spot was marked. The area was prepared and draped in standard sterile fashion. 4 cc of 1% Lidocaine was used to achieve local anesthesia. Under intermittent ultrasound guidance, a 22-gauge spinal needle was advanced into the posterior aspect of the shoulder joint. Aspiration trail resulted in dry tap. Lavage of the joint was performed with 2-3 CC of joint reddish fluid was obtained. The needle was removed, hemostasis achieved, and a sterile bandage applied. The patient tolerated the procedure well and left the department in good condition. There were no immediate complications. COMPARISON: None FINDINGS: Again seen is cortical irregularity in keeping with known p roximal left humeral fracture. 1. Imaging Findings - as above. 2. Procedure - Uneventful ultrasound-guided lavage with fluid aspiration, which was sent for microbiology. I Dr. Duran personally supervised the Resident/Fellowduring the landrum components of the above procedure and I have reviewed and agree with the Resident/Fellow findings/dictation. BY ELECTRONICALLY SIGNING THIS REPORT, I THE ATTENDING PHYSICIAN ATTEST THAT I HAVE REVIEWED THE IMAGES FOR THE ABOVE PROCEDURE(S) AND AGREE WITH THE FINDINGS DOCUMENTED. Adarsh Duran MD, electronically signed on Aug 22 2025 03:47PM CT Shoulder Left Without Contrast Result Date: 08/21/2025 EXAMINATION: CT SHOULDER LEFT WO CONTRAST INDICATION: shoulder pain; TECHNIQUE: MDCT images of the left shoulder were obtained without contrast. Coronal and sagittal reformats were obtained. DOSE: Acquisition sequence: 1) Spiral Acquisition 5.0 s, 23.0 cm; CTDIvol = 13.3 mGy (Body) DLP = 306.2 mGy-cm Total DLP (Body) = 306 mGy-cm COMPARISON: Radiograph of left shoulder dated August [address] pulmonary angiography dated August 19. FINDINGS: BONES: Mild diffuse osseous demineralization. There is a complete transverse comminuted displaced fracture involving the neck of the humerus. The fracture line is seen extending into inferior articular surface of the humeral head as well as the greater t uberosity. There is almost half shaft width anterior displacement of the distal fracture fragment with mild superior migration (approximately 1.9 cm) and impaction. The glenohumeral alignment is well-maintained. No suspicious focal osseous lesion is seen. Note is made of compression fracture of indeterminate age T1 vertebral body and possible superior endplate compression of T2. Visualized ribs do not show any overt fracture, however the evaluation is limited by subtle motion artifacts. SOFT TISSUES: Mild soft tissue edema surrounding the shoulder joint. No localized fluid collection or any hematoma formation. No effusion or evidence of tendon entrapment. No disproportionate muscle atrophy.OTHER: Note is made of severe centrilobular emphysema in visualized lungs. Consolidative opacity inthe left lower lobe is partially visualized. Few nodular opacity in left upper lung. 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 These findings are better evaluated in recent CT pulmonary angiography 1. Complete transverse comminuted displaced, impacted fracture involving neck of the humerus extending into inferior articular surface humeral head and greater tuberosity 2. Compression fracture of indeterminate age T1 vertebral body and possible superior endplate compression of T2. 3. Consolidative opacity in the left lower lobe is partially visualized. Few nodular opacity in left upper lung. These findings are better evaluated in recent CT pulmonary angiography. If clinically indicated consider CT chest follow-up in 3 months. BY ELECTRONICALLY SIGNING THIS REPORT, I THE ATTENDING PHYSICIAN ATTEST THAT I HAVE REVIEWED THE IMAGES FOR THE ABOVE PROCEDURE(S) AND AGREE WITH THE FINDINGS DOCUMENTED. Guy Hummel MD, electronically signed on Aug 21 2025 10:44AM ECG 12 lead Result Date: 08/21/2025 Sinus rhythm with premature atrial depolarizations Minimal voltage criteria for LVH, may be normal variant ( Morris product ) Nonspecific T wave abnormality Inferior GA - indeterminate age Abnormal ECG When compared with ECG of 07-Aug-2025 13:31, premature ventricular depolarizations are no longerpresent premature atrial depolarizations are now present ST elevation now present in Anterior leads Shoulder 2+ Vw Left Result Date: 08/20/2025 INDICATION: s/p fall, surgery, pain, swelling ?fx; TECHNIQUE: Three views of the left shoulder COMPARISON: None. FINDINGS: A comminuted and impacted fracture of the left proximal humerus involves thehumeral head and surgical neck. No dislocation. Glenohumeral joint is preserved. Mild joint space narrowing of the acromioclavicular joint. Imaged left lung demonstrates chain sutures from prior leftupper segmentectomy. Generator pack for a pacer is seen in the left upper chest wall. Comminuted and impacted left proximal humeral fracture involving the humeral head and surgical neck. No dislocation. Akanksha Ríos MD, electronically signed on Aug 20 2025 11:03AM US Upper Extremity Venous Bilateral Result Date: 08/20/2025 EXAMINATION: US UPPER EXTREMITY VENOUS BILATERAL INDICATION: Edema, pain/tenderness TECHNIQUE: Greyscale and Doppler evaluation was performed on the bilateral upper extremity veins. COMPARISON: None. FINDINGS: There is normal flow with respiratory variation in the bilateral subclavian veins. The right internal jugular vein is patent, shows normal color flow, spectral doppler, and compressibility. The right brachial veins are patent and show compressibility. The right axillary vein is not compressible and does not show normal [id number] color flow, consistent with nonocclusive thrombus in the right axillary vein. The rest of the exam was not performed as the patient was unable to toleratethe exam due to pain. 1. Nonocclusive deep vein thrombus of the right axillary vein. 2. This study only assessed bilateral subclavian, right internal jugular, right brachial, and right axillary veins. The rest of upper extremities were not assessed as the patient was unable to tolerate the exam due to pain. NOTIFICATION: The findings were discussed with, and acknowledged by Dr. Albin Puentes by Dr. Sherry Valladares, using [employer] Secure Chat on 08/20/2025 at 9:53 am, 3 minutes after discovery of the findings. BY ELECTRONICALLY SIGNING THIS REPORT, I THE ATTENDING PHYSICIAN ATTEST THAT I HAVE REVIEWED THE IMAGES FOR THE ABOVE PROCEDURE(S) AND AGREE WITH THE FINDINGS DOCUMENTED. Sherry Gomez MD, electronically signed on Aug 20 2025 10:38AM XR Chest 1 Vw Portable Result Date: 08/19/2025 EXAMINATION: XR CHEST 1 VW PORTABLE INDICATION: sob, cough /pna; TECHNIQUE: Semi-upright AP view ofthe chest COMPARISON: CTA chest 19 August 2025 at 18:44 and 07 August 2025, chest radiograph 07 August 2025 FINDINGS: Left-sided pacer with leads in the right atrium and right ventricle, unchanged.Mild cardiomegaly is similar. Mediastinal and hilar contours are unchanged. No pulmonary edema. Diffuse increased interstitial opacities are again noted and related to underlying severe emphysema. Patchy airspace opacities are again noted in the lower lobes which is concerning for pneumonia. No pleural effusion or pneumothorax. No acute osseous abnormalities. Partially imaged comminuted left proximal humeral fracture. Status post right shoulder arthroplasty with the humeral head component demonstrating anterior dislocation. Contrast from recent CT examination is seen in the renal collectingsystems bilaterally. Patchy bilateral lower lobe opacities suggesting pneumonia as seen on prior CT. Partially imaged comminuted left proximal humeral fracture and anteriorly dislocated humeral component of a right shoulder arthroplasty. Akanksha Ríos MD, electronically signed on Aug 19 2025 10:25PM XR Shoulder 2+ Vw Right Result Date: 08/19/2025 INDICATION: s/p fall, surgery, pain, swelling ?fx; TECHNIQUE: Right shoulder, three views COMPARISON: CT chest 07 August 2025 and right shoulder radiographs 14 August 2025 FINDINGS: Status post right shoulder arthroplasty with persistent anterior, medial and inferior displacement of the humeral head component relative to the glenoid. No acute fracture. Acromioclavicular joint demonstrates milddegenerative changes. Fragmentation of the acromion appears chronic. No periarticular soft tissue calcifications. Severe emphysema is noted in the imaged right lung. 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 No acute fracture. Akanksha Ríos MD, electronically signed on Aug 19 2025 10:25PM XR Elbow 3+ VW Right Result Date: 08/19/2025 INDICATION: elbow pain; TECHNIQUE: AP and lateral views of the elbows bilaterally COMPARISON: None.FINDINGS: On the left, no acute fracture or dislocation. No elbow joint effusion. Mild degenerativechanges of the humeroulnar joint. No concerning lytic or sclerotic osseous abnormality. No embeddedradiopaque foreign body or soft tissue calcification. On the right, no acute fracture or dislocation. No elbow joint effusion. Mild degenerative changes of the ulnohumeral joint. No suspicious lytic or sclerotic osseous abnormality. Mild soft tissue irregularity is seen along the dorsal aspect of th e elbow. No acute fracture or dislocation involving either elbow. Akanksha Ríos MD, electronically signed on Aug 19 2025 10:24PM XR Elbow 3+ VW Left Result Date: 08/19/2025 INDICATION: elbow pain; TECHNIQUE: AP and lateral views of the elbows bilaterally COMPARISON: None.FINDINGS: On the left, no acute fracture or dislocation. No elbow joint effusion. Mild degenerativechanges of the humeroulnar joint. No concerning lytic or sclerotic osseous abnormality. No embeddedradiopaque foreign body or soft tissue calcification. On the right, no acute fracture or dislocation. No elbow joint effusion. Mild degenerative changes of the ulnohumeral joint. No suspicious lytic or sclerotic osseous abnormality. Mild soft tissue irregularity is seen along the dorsal aspect of th e elbow. No acute fracture or dislocation involving either elbow. Akanksha Ríos MD, electronically signed on Aug 19 2025 10:24PM CT Angiogram Chest PE : Arteriogram Addendum Date: 08/19/2025 ADDENDUM The patient is status post right shoulder arthroplasty (not reverse shoulder arthroplasty). The anterior dislocation of the humeral head component relative to the glenoid appears similar compared to the prior CTA chest from August 07, 2025. Akanksha Ríos MD, electronically signed on [id number] 08:47PM Result Date: 08/19/2025 EXAMINATION: CTA CHEST WITH CONTRAST INDICATION: pt w/ sob, chest pain, tachycardia; TECHNIQUE: Axial multidetector CT images were obtained through the thorax after the uneventful administration of intravenous contrast including reformatted coronal, sagittal, and oblique and axial maximal intensityprojection (MIP) images. DOSE: Acquisition sequence: 1) Stationary Acquisition 0.5 s, 0.5 cm; CTDIvol = 3.0 mGy (Body) DLP = 1.5 mGy-cm 2) Stationary Acquisition 2.0 s, 0.5 cm; CTDIvol = 12.1 mGy (Body) DLP = 6.1 mGy-cm 3) Spiral Acquisition 4.1 s, 30.6 cm; CTDIvol = 8.2 mGy (Body) DLP = 252.0 mGy-cm Total DLP (Body) = 260 mGy- cm COMPARISON: CTA chest 07 August 2025 FINDINGS: VASCULATURE: Main pulmonary artery is borderline enlarged at 3.1 cm. No filling defects to the subsegmental level to indicate a pulmonary embolism. Ascending aorta demonstrates fusiform dilatation to 4.2 cm and the descending thoracic aorta is dilated up to 3.4 cm, as seen previously. No aortic dissection or intramural hematoma. HEART: Mild cardiomegaly. Pacing leads terminate within the right atrium and right ventr icle. Moderate coronary artery calcifications. No significant pericardial effusion. AXILLA, MARCELL, AND MEDIASTINUM: No lymphadenopathy or mass. The esophagus is patulous which can be seen with esophageal dysmotility. PLEURAL SPACES: No pleural effusion or pneumothorax. LUNGS: Heterogeneous consolidative opacities in both lower lobes can be seen with pneumonia. Severe centrilobular emphysema is again demonstrated. AIRWAYS: Airway wall thickening suggesting inflammation is noted. Central airways are patent to the segmental bronchial level. BASE OF NECK: 5 mm rim calcified thyroid nodule is notedwhich does not require specific sonographic follow-up. ABDOMEN: Visualized upper abdomen unremarkable. BONES: A comminuted left proximal humeral fracture is incompletely imaged. Status post right reverse shoulder arthroplasty with anterior subluxation/dislocation of the hardware relative to the glenoid. A subacute fracture of the sternum is noted (602:74). Compression deformities of the T1 and T11 vertebral bodies are unchanged. SOFT TISSUES: Soft tissue stranding is seen within the left shoulder secondary to the humeral fracture. 1. No pulmonary embolism or acute aortic pathology. 2. Severe emphysema with mild dilatation of thepulmonary artery measuring up to 3.1 cm, unchanged, which can be seen with pulmonary arterial hypertension. 3. Mild dilatation of the ascending and descending thoracic aorta, unchanged. See recommendations below. 4. Heterogeneous consolidative opacities in both lower lobes may reflect pneumonia. 5.Acute, comminuted left proximal humeral fracture. 6. Status post reverse right shoulder arthroplasty with anterior subluxation/dislocation of the humeral component relative to the glenoid. 7. Chroniccompression deformities of T1 and T11 vertebral bodies. RECOMMENDATION(S): Follow-Up Imaging: Thoracic aorta 4.0 - 4.4 cm in diameter - if stable findings at 12 months or interval increase in diameter is < 3 mm, consider follow-up with ECG-gated chest CTA in 2 years. Management recommendations for follow-up of thoracic aortic aneurysm are based on existing literature and multidisciplinary consensus document of our institution, including Cardiology, Vascular Surgery, and Cardiac Surgery and it is specifically designed for this program. Carito COLLAZO, et al. ACC/AHA Guideline for the Diagnosis and Management of Aortic Disease: A Report of the [place] [employer]/[place] College ofCardiology Joint Committee on Clinical Practice Guidelines. Circulation 202; 146:n574-q938. Erbel R, et al. ESC Guidelines on the diagnosis of thoracic and abdominal aorta of the adult. Eur Heart J 2014;35:5742-2773. Cindy TURCIOS et al. The Society of Vascular Surgery practice guidelines on the care of patients with an abdominal aortic aneurysm. J Vasc Surg 2018;67:2-77. Joseph Dunham, et al. Management of Descending Thoracic Aortic Disease: Clinical Practice Guidelines of the Society of Vascular Surgery. Eur J Vasc Endovasc Surg 2017;53:4-52. Akanksha Ríos MD, electronically signed on Aug 19 2025 07:13PM US Lower Extremity Venous Left Result Date: 08/19/2025 EXAMINATION: US LOWER EXTREMITY VENOUS LEFT INDICATION: Left lower extremity pain and edema. TECHNIQUE: Mullen scale, color, and spectral Doppler evaluation was performed on the left lower extremity veins. The patient could not tolerate evaluation of the calf veins. COMPARISON: None. FINDINGS: There is normal compressibility, color flow, and spectral doppler of the left common femoral, femoral, andpopliteal veins. The patient was unable to tolerate evaluation of the calf veins. There is normal respiratory variation in the common femoral veins bilaterally. No evidence of medial popliteal fossa ([place]) cyst. Unable to evaluate the calf veins, but there is no evidence of deep venous thrombosis in the other left lower extremity veins. BY ELECTRONICALLY SIGNING THIS REPORT, I THE ATTENDING PHYSICIAN ATTEST THAT I HAVE REVIEWED THE IMAGES FOR THE ABOVE PROCEDURE(S) AND AGREE WITH THE FINDINGS DOCUMENTED. Geo Ríos MD, electronically signed on Aug 19 2025 07:17PM CT Cervical Spine Without Contrast Result Date: 08/19/2025 EXAMINATION: CT CERVICAL SPINE WO CONTRAST INDICATION: s/p fall; TECHNIQUE: Contiguous axial imagesobtained through the cervical spine without intravenous contrast. Coronal and sagittal reformats were reviewed. DOSE: Acquisition sequence: 1) Sequenced Acquisition 18.0 s, 18.0 cm; CTDIvol = 50.2 mGy (Head) DLP = 903.1 mGy-cm 2) Spiral Acquisition 5.7 s, 21.2 cm; CTDIvol = 24.5 mGy (Body) DLP = 518.9 mGy-cm Total DLP (Body) = 519 mGy-cm Total DLP (Head) = 903 mGy-cm Note: This radiation dose report was copied from accession #[id number] (CT HEAD WO CONTRAST) COMPARISON: CT chest 07 August 2025 FINDINGS: Reversal of the normal cervical lordosis is demonstrated. No traumatic malalignment. R otation of C1 on C2 is likely due to head positioning within the scanner. No definite acute fractures are identified. There is moderate anterior height loss of the T1 vertebral body, unchanged from prior CT from July 2025. [id number] multilevel degenerative changes with intervertebral disc space narrowing, endplate sclerosis, and osteophyte formation. No high-grade central canal stenosis. Mild multilevel neural foraminal stenosis without high-grade narrowing.There is no prevertebral edema. Stranding in the left supraclavicular soft tissues relates to a left proximal humeral fractureas seen on the biochemistry teacher views. Severe emphysema is noted in the left lung apex. Thyroid gland demonstra kasi a rim calcified 5 mm nodule on the right which does not require dedicated imaging follow-up. 1. No acute cervical spine fracture or traumatic malalignment. 2. Left proximal humeral fracture imaged on the biochemistry teacher view. 3. Chronic compression deformity of the T1 vertebral body. Akanksha Ríos MD, electronically signed on Aug 19 2025 06:57PM CT Head Without Contrast Result Date: 08/19/2025 EXAMINATION: CT HEAD WO CONTRAST [id number] CT BID-HEAD INDICATION: s/p fall; TECHNIQUE: Contiguous axial images of the brain were obtained without contrast. Coronal and sagittal reformations as well as bone algorithm reconstructions were provided and reviewed. DOSE: Acquisition sequence: 1) Sequenced Acquisition 18.0 s, 18.0 cm; CTDIvol = 50.2 mGy (Head) DLP = 903.1 mGy-cm 2) Spiral Acquisition 5.7 s, 21.2 cm; CTDIvol = 24.5 mGy (Body) DLP = 518.9 mGy-cm Total DLP (Body) = 519 mGy-cm Total DLP (Head) = 903 mGy-cm COMPARISON: None. FINDINGS: There is no evidence of fracture, acute large territorial infarction, hemorrhage, edema, or mass. There is prominence of the ventricles and sulci suggestive of involutional changes. Moderate periventricular and subcortical white matter hypodensitiesare nonspecific, but likely reflect the sequela of chronic microvascular infarction. The visualizedportion of the paranasal sinuses, mastoid air cells, and middle ear cavities are clear. Patient is status post bilateral lens replacements. 1. No acute intracranial abnormality. Akanksha Ríos MD, electronically signed on Aug 19 2025 06:49PM XR Shoulder 2+ VW Right Result Date: 08/14/2025 EXAMINATION: XR SHOULDER 2+ VW RIGHT INDICATION: R Shoulder Pain; TECHNIQUE: Three views right shoulder COMPARISON: 01 August 2025 Redemonstrated reverse right shoulder arthroplasty with grossly intact hardware and maintained alignment. There is no acute fracture.. Slight interval decrease in streaky opacities in the right upperlung zone. Mild degenerative changes at the glenohumeral joint.. Kate Lugo MD, electronically signed on Aug 14 2025 02:56PM CT Angiogram Chest PE : Arteriogram Result Date: 08/08/2025 EXAMINATION: CTA CHEST WITH CONTRAST INDICATION: patient with new 02; TECHNIQUE: Axial multidetector CT images were obtained through the thorax after the uneventful administration of intravenous contrast including reformatted coronal, sagittal, and oblique and axial maximal intensity projection (MIP) images. DOSE: Acquisition sequence: 1) Sequenced Acquisition 0.5 s, 0.2 cm; CTDIvol = 7.2 mGy (Body) DLP = 1.4 mGy-cm 2) Stationary Acquisition 3.7 s, 0.2 cm; CTDIvol = 61.8 mGy (Body) DLP = 12.4 mGy-cm 3) Spiral Acquisition 5.4 s, 35.0 cm; CTDIvol = 12.6 mGy (Body) DLP = 431.5 mGy-cm Total DLP (Body) = 445 mGy-cm COMPARISON: Outside CT chest available in the [facility] 28 May 2025 FINDINGS: VASCULATURE: No pulmonary embolism to the subsegmental level. The ascending thoracic aorta is mildly dilated measuring up to 4.1 cm. There are mild atherosclerotic calcifications of the thoracic aorta. HEART: Normal heart size. Mild atheromatous coronary calcifications. No significant pericardial effusion. AXILLA, MARCELL, AND MEDIASTINUM: No lymphadenopathy or mass. Mildly dilated air- filled and patulous esophagus predominantly in the upper and midportion. PLEURAL SPACES: No pleural effusion or pneumothorax. LUNGS: Postsurgical changes from left upper posterior segmentectomy. Diffuse emphysematouschanges noted in bilateral lung villavicencio in the form of emphysematous bullae, more so in the bilateral upper lobes. Few patchy areas of ground-glass in noted in the apical segment of bilateral upper lobe,likely representing mild mosaic attenuation related to regional differences in ventilation. Fibroatelectatic changes noted involving the most of the right upper lobe, posterior and lateral segmentof right lower lobe and apicoposterior segment of left upper lobe. There is a 2.3 by 1.5 cm irregular subpleural consolidative opacity in the right lung base and an additional 16 mm subpleural nodular opacity in the medial right lung base. AIRWAYS: Patent central airways. There are filling defects noted in the anterior aspect of the left mainstem bronchus, likely secretions. Bilateral lower lobe p redominant diffuse bronchial wall thickening most pronounced in the right lower lobe with scatteredareas of mucous plugging. BASE OF NECK: Limited evaluation due to metallic artifacts from processesin right humerus, grossly normal. Lines and tubes: Trans subclavian atrial ventricular pacer leads continuous from left pectoral generator flow expected course. ABDOMEN: The study is not tailored for subdiaphragmatic evaluation. Partially imaged small hepatic cyst. Partially imaged scattered calcifications in the pancreas likely sequela of chronic pancreatitis BONES: Reduced height T1 and T10 vertebral body noted, likely compression fracture. Visualized spine shows degenerative changes in the form of osteophytes. Mild scoliosis with convexity towards right side. SOFT TISSUES: Unremarkable. No evidence of acute pulmonary embolism or aortic abnormality. Bilateral lower lobe predominant diffuse bronchial wall thickening most pronounced in the right lower lobe with areas of mucoid impaction. Subpleural nodular consolidative opacities in the right lung base, likely infectious or inflammatory etiology possibly related to aspiration. Stable postsurgical changes left upper lobe. Mildly dilated air-filled and patulous esophagus, may be related to reflux/dysmotility. Other stable findings BY ELECTRONICALLY SIGNING THIS REPORT, I THE ATTENDING PHYSICIAN ATTEST THAT I HAVE REVIEWED THE IMAGES FOR THE ABOVE PROCEDURE(S) AND AGREE WITH THE FINDINGS DOCUMENTED. Noble Clements MD , Kate Lugo MD, electronically signed on Aug 08 2025 11:37PM US Upper Extremity Venous Right Result Date: 08/08/2025 EXAMINATION: US UPPER EXTREMITY VENOUS RIGHT INDICATION: Right upper extremity edema. TECHNIQUE: Mullen scale and Doppler evaluation was performed on the right upper extremity veins. COMPARISON: None. FINDINGS: There is normal flow with respiratory variation in the bilateral subclavian veins. The right internal jugular, axillary, and brachial veins are patent, show normal color flow, spectral doppler, and compressibility. The right basilic, and cephalic veins are patent, compressible and show normal color flow. No evidence of deep vein thrombosis in the right upper extremity. BY ELECTRONICALLY SIGNING THIS REPORT, I THE ATTENDING PHYSICIAN ATTEST THAT I HAVE REVIEWED THE IMAGES FOR THE ABOVE PROCEDURE(S) AND AGREE WITH THE FINDINGS DOCUMENTED. Shivani Mcelroy MD , David Duran MD, electronicallysigned on Aug 08 2025 05:11PM XR Chest 1 VW Result Date: 08/08/2025 EXAMINATION: XR CHEST 1 VW INDICATION: increased 02 post op; increased 02 post op; TECHNIQUE: AP portable chest. COMPARISON: 06 August 2025 chest radiograph Since 06 August 2025 chest radiograph, stable nonspecific interstitial opacities, most notable inthe right upper lung. These opacities may represent pneumonia in the appropriate clinical context, although they may also represent chronic emphysematous changes or other chronic disease. Recommend CT chest with contrast for further evaluation. No significant pneumothorax. No significant pleural abnormality. Mildly increased retrocardiac opacity may be minimal atelectasis. Unremarkable cardiomediastinal silhouette. Monitoring and support devices are unchanged. Multiple serpiginous opacities distributed throughout the view of the hemithorax are likely outside of the patient. RECOMMENDATION(S):CT chest with contrast NOTIFICATION: The findings were discussed with, and acknowledged by Ching Martin by Dr. Cristopher Perry, using [employer] Secure Chat on 08/07/2025 at 3:01 pm, 5 minutes after discovery of the findings. BY ELECTRONICALLY SIGNING THIS REPORT, I THE ATTENDING PHYSICIAN ATTEST THAT I HAVE REVIEWED THE IMAGES FOR THE ABOVE PROCEDURE(S) AND AGREE WITH THE FINDINGS DOCUMENTED. Cristpoher Perry, Duran Pagan MD, electronically signed on Aug 08 2025 09:02AM ECG 12 lead Result Date: 08/07/2025 Sinus rhythm with frequent premature ventricular depolarizations and atrial paced complexes Inferior infarct , age undetermined Abnormal ECG When compared with ECG of 06-Jul-2025 09:09, Inferior infarct is now present Chest 1 VW Portable Result Date: 08/06/2025 EXAMINATION: XR CHEST 1 VW PORTABLE INDICATION: 74F history of emphysema now with shortness of breath despite nebulizers; There are no prior chest radiographs. The combination of severe emphysema and moderate interstitialpulmonary abnormality could all be smoking related. However without prior chest radiographs I can not tell if the interstitial abnormality is an acute problem such as mild pulmonary edema and perhapseven concurrent right upper lobe pneumonia. Any prior chest radiographs performed elsewhere should be obtained for [id number] comparison. Heart size is normal. No appreciable pleural abnormality ispresent. Trans subclavian atrial ventricular pacer leads continuous from the left pectoral generator follow expected courses. Romel Glynn MD, electronically signed on Aug 06 2025 09:04AM Assessment and Plan: 74 y.o. 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 S/p R shoulder IR aspiration 08/22 with no culture growth. Patient currently inpatientwith continued pain control. PLAN # Pain control # History of Opioid Use Disorder, on suboxone Pt with a history of opioid use disorder in setting of opioids for pancreatitis, recently started on suboxone (May). Requiring high amounts of opioids in this setting given her humerus fractureand post-R shoulder hemiarthroplasty. - Continue low dose suboxone, increased to TID on 08/27 per chronic pain recommendations - Started Lyrica 75 mg BID 08/26 - Chronic pain consulted, appreciate recommendations: S/p Morphine SATURATION DIVER 08/22-08/28 Switched to Morphine 60 mg PO Q4H PRN + Morphine IV, per their last note, switched to PO oxycodone 10 mg PO q4h PRN Added on methocarbamol 500 mg QID on 08/27 # L proximal humerus comminuted transverse fracture s/p fall # Significant LUE edema Pt with a mechanical fall after misjudging where the toilet seat is and falling onto her L shoulder. Given persistent pain, presented to the ED. CT scan of L humerus showed acceptable alignment amenable to non-operative treatment with immobilization in a sling; however, pt unable to tolerate sling consistently with continued pain. Repeat LUE XR with interval callus formation and no new dislocation or fracture. - Ortho following, will plan for 1-2 week follow-up with L shoulder X-Ray LUE wrapped for compression due to edema with distal pulse, sensation, and motion checks every shift Re-engaged on 08/28 given continued pain, and significant swelling - Activity restrictions: can come out of the sling for gentle pendulum range of motion. She may usethe left upper extremity for light activity daily living but no heavy lifting more than 5 pounds (coffee cup weight bearing) - Pain control, see #Pain control as above - Appreciate OT evaluation # C/F R Wrist Drop Pt with R wrist pain and difficulty with voluntary extension. Ortho examined on 08/28 and not concerned about septic wrist, but are concerned for possible nerve impingement. - Follow-up R humerus XR - Neurology consult, obtaining MRI right brachial plexus, awaiting study # R shoulder swelling/pain, c/f R shoulder septic arthritis # Chronic R rotator cuff arthropathy s/p R total shoulder arthroplasty 07/11/25, conversion to R shoulder hemiarthroplasty with glenoid and humeral implant on 08/01/25 # Chronic right shoulder dislocation Pt with increased R shoulder pain and swelling post-surgery on 08/01 w/concern for possible septic joint w/CRP of 293. Initially given antibiotics, but d/c'ed for IR procedure on 08/20 to increase yield of IR tap on 08/22. Joint cultures NGTD. X ray showing chronic anterior dislocation of the humeral head relative to the glenoid, ortho reviewed and no acute intervention required, and will follow-up OP (Dr. Goins). - S/p vanc/cefepime on 08/19 - See #Pain control as above # Acute on chronic hypoxic respiratory failure (bl 4L NC) # C/f HAP # Leukocytosis, improved # Consolidative opacities in both lower lobes (from CT chest 08/19) # COPD without exacerbation Pt with noted consolidative opacities in both lower lobes from CT chest, initially w/o respiratory symptoms and baseline 4L NC. However, pt developed increased O2 requirements overnight, likely positional or 2/2 mucoid impaction; however, CXR still with evidence of PNA. Given pt was at rehab prior to current admission, treated recently for PNA with bactrim (08/01-08/10), and significant underlying lung disease will plan to treat for HAP. On 08/25, pt lost IV access and her IV antibiotics were transitioned to PO linezolid + levofloxacin. Overall, given pt's clinical stability very low concern for true MRSA HAP despite + MRSA swab, thus will plan to complete course of HAP coverage with Levofloxacin. - Vanc/Cefepime 08/23 - 08/25, Linezolid 08/26, Levofloxacin 08/26 - 08/29 - ANALYTICAL DATA MINER consultation appreciated, ok for regular diet - Continue home Dulera + Spiriva - IS # Moderate hyponatremia, improving Pt with Na of 125 08/25. Overall most concerned for hypovolemic hyponatremia vs tea and toast givenpt unable to feed herself consistently. Of note, patient also getting vancomycin in Dextrose which could be contributing. Last diuretic dose on 08/22. Urine studies consistent with ADH being on givenUrine osms > 200. Urine Na is > 20, FeUrea < 55%. With IVF trial, Na increased, consistentwith likely low EABV though if pt does have SIADH it is likely in setting of uncontrolled pain. - 1L LR fluid challenge w/improvement in Na this AM - Continue to monitor Na # Urinary retention Pt with urinary retention this admission. Think that it is likely multifactorial, likely related tosome underlying pelvic floor dysfunction (pt was having trouble urinating prior to this hospitalization) + constipation from opioid use/decreased hydration + immobility. UA w/o evidence of infection. - Straight cath x4 - Helton placed overnight 08/25 - 08/26 - TOV attempted on 08/29, unsuccessful; Helton replaced # Access Pt with very difficult upper extremity access given RUE DVT + L humerus proximal fracture and resulting edema. Given need for SATURATION DIVER + other intermittent IV medication needs, including electrolyte repletion + frequent lab draws, will pursue central line placement as PICC/midline are not options. - IR consult for temp access, placed # New R axillary vein DVT Pt with worsening R arm pain post-fall on L shoulder, w/increased swelling over right shoulder and lower arm. She was found on admission to have a new R axillary vein DVT. - Hep gtt started 08/20. Does not need to hold for IR drain of R shoulder. - Switched to apixaban on 08/25 # Constipation -Senna/miralax scheduled + bisacodyl suppository PRN CHRONIC CONDITIONS # Chronic HFrEF Nt-proBNP was normal 125 on admission w/no signs/symptoms of volume overload. - on home lasix 20mg MWF, restart 08/22 due to initial hypotension in ED (improved with 1L NS) - was holding entresto given hypotension, resumed 08/21 - daily weights, strict I&O # SSS s/p dcICD # NSVT PVC burden of 10% on prior Zio. - change metop succ 12.5 bid -> metop tart 12.5 bid given hypotension on arrival, now currently low 100s # Chronic iron deficiency anemia - baseline hb 9-10s - iron low on 08/03, ferritin 101. - continue po iron # Moderate malnutrition has lost >30lbs over last 6 months d/t poor appetite. Hypocalcemia corrected to ~9 w/albumin. - multivitamins, ensure tid, nutrition consult. Need help with food due to b/l arm pain # Hypothyroidism - levothyroxine 50 # Anxiety/depression - ativan 0.5 bid -> changed to BID PRN due to high dose opioid use, c/h paroxetine 20 # GERD - omeprazole # HLD - lipitor. # Nonobstructive CAD - asa 81, stop while on therapeutic AC for now Core Measures Nutrition: Oral. Hydration: Oral. Functional status: Out of bed to chair with assist. Bowel Function: Constipated. Lines/Tubes/Drains: Peripheral IV. VTE prophylaxis: Therapeutic anticoagulation. Living Situation: lives alone. Though recently coming from rehab. PAML Status: The preadmission medication list is ACCURATE and COMPLETE.. Anticipated Disposition: Acute rehabilitation vs SNF. Anticipated Length of Stay: 4-5 days. Advanced Care Planning: Full Code. Contacts/HCP/Surrogate: Extended Emergency Contact Information Primary Emergency Contact: Ashanti Green Address: [address] [place] [id number] [facility] Mobile Relation: Daughter Secondary Emergency Contact: Rory Craft Address: [address] [place] [id number] [place] [address] Mobile Relation: Son E/M Services: I spent 50 minutes in this clinical encounter reviewing the medical record, seeing and examining the patient, placing orders, writing notes, performing signout, and communicating with the applicable medical and nursing teams. Eloy Gomez MD Attending Physician Section of Hospital Medicine [facility] Complexity Bundle Hyponatremia (present on admission) : Labs repeated - Sodium of 130 on 08/27/2025 Anemia secondary to chronic disease and inflammation (present on admission) : Labs repeated - Hemoglobin of 7.7 on 09/02/2025 Moderate Chronic Malnutrition (present on admission) : Assessed - Severity based on ASPEN criteria as documented by the cad manager and is ordered for vitamin/mineral supplementation * Eloy Gomez MD - 09/01/2025 9:41 AM EST HOSPITAL MEDICINE PROGRESS NOTE Patient: Mayra Craft Admit Date: 08/19/2025 LOS: 12 days Primary Care Physician: Vanessa Culver MD Interval Events: None reported. Subjective: Patient reports stable pain in her upper extremities. There is no chest pain or dyspnea. There is no abdominal pain. She has no fevers or chills. She continues to have right wrist drop. Physical Exam Temp: [97.6 ??F (36.4 ??C)-98.7 ??F (37.1 ??C)] 97.6 ??F (36.4 ??C) Heart Rate: [64-72] 67 Resp: [16-18] 16 BP: (96-138)/(47-67) 110/59 SpO2: [93 %-100 %] 95 % Stool Assessment Stool Occurrence: 1 Bowel Incontinence: Yes Stool Amount: Small Stool Appearance: Loose Stool Color: Brown Last BM Date: 08/29/25 Stool Amount: Small Stool Appearance: Loose Stool Color: Brown Last BM Date: 08/29/25 0-10 Pain Score : Sleeping (09/01/2025 6:35 AM) Pain Type: Acute pain; Chronic pain (08/31/2025 2:30 PM) General: Appears uncomfortable. HEENT: No scleral icterus. No conjunctival injection. Pulmonary: No increased work of breathing, on 4 L NC. Lungs with no wheezing, rales. Cardiovascular: Regular rate and rhythm. No murmurs, gallops, or rubs. Abdominal: Soft, mildly distended, non-tender to palpation. Extremities: No lower extremity edema. Warm and well perfused. MSK: Pt with large area of bruising around left arm (within marked area) and improving with ROM intact at shoulder, limited at elbow due to pain. LUE with improved swelling with compression with cori wrapping. RUE with 2+ pitting edema in the proximal arm. Mild tenderness to palpation over right upper arm with c/d/I incision scar anteriorly + preserved ROM at shoulder, ROM limited over elbow due to pain. R wrist with bruising over R wrist, pain with flexion, improvement on extension--ROM intact though with pain. Neuro: Vision and hearing grossly intact. Face symmetric. Moving all four extremities purposefully. Psych: Alert and oriented. Normal affect. Lines: Helton in place Data: I have reviewed the relevant labs, radiology studies, tracings, medical records, and they are notable for Results for orders placed or performed during the hospital encounter of 08/19/25 (from the past 24 hours) CBC Result Value Ref Range WBC 5.40 4.00 - 10.00 K/uL RBC 2.80 (L) 3.90 - 5.20 M/uL Hemoglobin 7.8 (L) 11.2 - 15.7 g/dL Hematocrit 25.4 (L) 34.0 - 45.0 % MCV 91 82 - 98 fL MCH 27.9 26.0 - 32.0 pg MCHC 30.7 (L) 32.0 - 37.0 g/dL RDW 16.3 (H) 10.5 - 15.5 % RDW-SD 53.1 (H) 35.1 - 46.3 fL Platelet Count 288 150 - 400 K/uL Nucleated RBC 0 <=0 #/100 WBC C-Reactive Protein Result Value Ref Range C-Reactive Protein (CRP) 73.0 (H) 0.0 - 5.0 mg/L Renal Function Panel Result Value Ref Range Sodium 133 (L) 135 - 147 mmol/L Potassium 4.2 3.5 - 5.4 mmol/L Chloride 96 96 - 108 mmol/L Total CO2/Bicarbonate 32 22 - 32 mmol/L Anion Gap 5 4 - 16 mmol/L BUN 21 (H) 6 - 20 mg/dL Creatinine, Blood 0.50 0.40 - 1.10 mg/dL Glucose, Blood 106 (H) 70 - 100 mg/dL Calcium 8.2 (L) 8.4 - 10.3 mg/dL Albumin, Blood 2.3 (L) 3.5 - 5.2 g/dL Phosphorus 3.5 2.7 - 4.5 mg/dL Magnesium, Blood 2.2 1.6 - 2.6 mg/dL XR Shoulder 2+ VW Left Result Date: 08/29/2025 EXAMINATION: XR SHOULDER 2+ VW LEFT INDICATION: pt with known L proximal humerus comminuted fracture with significant edema + continued pain, XR for worsening of fracture; TECHNIQUE: Frontal and Grashey view radiographs of the left shoulder. COMPARISON: Radiographs of the left shoulder from 19 August 2025. FINDINGS: Partially-imaged left-sided dual lead cardiac device noted. Again seen is the comminuted and impacted fracture of the left proximal humerus involving the humeral head and surgical neck. Fracture lines remain visible, though with interval callus formation. No evidence of acromioclavicular or glenohumeral joint dislocation. No new fracture detected. Probable diffuse osteopenia. Left lower lung opacity seen on frontal and oblique views. This appears more pronounced than on the 2024 left shoulder radiographs. Recommend further evaluation with dedicated chest x-ray. Surgical sutures noted in the left lung. RECOMMENDATION(S): Chest x-ray. NOTIFICATION: The findingsand recommendations above were discussed with, and acknowledged by Dr. Mayra Craft by Dr. Sunni Pham, using [employer] Secure Chat on 08/28/2025 at 3:24 pm, 2 minutes after discovery of the findings. BY ELECTRONICALLY SIGNING THIS REPORT, I THE ATTENDING PHYSICIAN ATTEST THAT I HAVE REVIEWED THE IMAGES FOR THE ABOVE PROCEDURE(S) AND AGREE WITH THE FINDINGS DOCUMENTED. Sunni Mercado MD, electronically signed on Aug 29 2025 03:22PM XR Humerus 2+ VW Right Result Date: 08/28/2025 EXAMINATION: XR HUMERUS 2+ VW RIGHT INDICATION: c/f R humerus pathology given r wrist drop; TECHNIQUE: Frontal view radiographs of the right humerus. COMPARISON: Radiographs of the right shoulder from 19 August 2025. FINDINGS: Again seen right shoulder arthroplasty hardware without evidence of hardware loosening. There is persistent anterior, medial, and inferior displacement of the right humeral head component relative to the glenoid. No fracture. If there remains clinical concern for nerve compression, please consider MRI for further evaluation. XR Chest 1 VW Portable Result Date: 08/28/2025 EXAMINATION: XR CHEST 1 VW PORTABLE INDICATION: incidentally noted LLL consolidation; TECHNIQUE: Chest portable AP COMPARISON: Multiple prior studies, most recent chest radiograph dated 08/23/2025. Retrocardiac and right basilar opacifications appear grossly similar and are better assessed by therecent chest CT. Diffuse reticular opacities are also better assessed by the previous chest CT, probably representing extensive emphysema. Superimposed inflammation is possible. Otherwise no significant interval change in the appearance of the chest. Kristopher Hickey MD, electronically signed on Aug 28 2025 04:02PM ECG 12 lead Result Date: 08/28/2025 Sinus rhythm with premature atrial depolarizations When compared with ECG of 23-Aug-2025 00:35, No significant change was found Temporary Access Catheter Placement Result Date: 08/27/2025 INDICATION: Inability to obtain or maintain peripheral venous access COMPARISON: None. TECHNIQUE: OPERATORS: Dr. Mckeon, attending interventional radiologist performed the procedure. ANESTHESIA: Local only Fluoro time 15 seconds Radiation Dose: <1 mGY PROCEDURE: PROCEDURE DETAILS: Following the explanation of the risks, benefits and alternatives to the procedure, written informed consent was obtained from the patient. The patient was then brought to the angiography suite and placed supine on the exam table. A pre-procedure time-out was performed per [facility] protocol. The right neck was preppedand draped in the usual sterile fashion. Under continuous ultrasound guidance, the patent right internal jugular vein was compressible and accessed using a micropuncture needle. Permanent ultrasound images were obtained before and after intravenous access, which confirmed vein patency. Subsequentlya Nitinol wire was passed into the IVC using fluoroscopic guidance. The needle was exchanged for a micropuncture sheath. The Nitinol wire was removed and an 0.035 wire was advanced into the IVC. A triple lumen central catheter was advanced over the wire into the superior vena cava with the tip in the cavoatrial junction. All 3 access ports were aspirated, flushed and capped. The catheter was secured to the skin with a 0 silk suture and sterile dressings were applied. Final spot fluoroscopic image demonstrating good alignment of the catheter and no kinking. The patient tolerated the procedure well without immediate complications. FINDINGS: Patent right internal jugular vein. Final fluoroscopic image showing the catheter tip terminating in the distal superior vena cava. Successful placement of a 7 Fr 16 cm triple-lumen temporary central venous catheter via the right internal jugular venous approach. The tip of the catheter terminates in the distal superior vena cava. The catheter is ready for use. Sammi Mckeon MD, electronically signed on Aug 27 2025 01:44PM XR Abdomen Portable Result Date: 08/25/2025 INDICATION: LUQ abdominal pain; TECHNIQUE: Portable supine abdominal radiograph was obtained. COMPARISON: None Nonspecific bowel gas pattern with gas noted throughout nondilated small bowel loops in the midlineand: To the level of rectum. There is a single dilated loop of bowel probably small bowel loop in the left upper quadrant suggestive of focal ileus or could be splenic flexure. Moderate stool burden in the right side of the colon. Suboptimal study for evaluation of free air however no gross pneumoperitoneum. There are degenerative changes in the spine Kate Lugo MD, electronically signed on Aug 25 2025 03:52PM XR Hand 3+ VW Right Result Date: 08/24/2025 EXAMINATION: XR WRIST 3+ VW RIGHT; XR HAND 3+ VW RIGHT INDICATION: pt with fall and continued r wrist and hand pain.; TECHNIQUE: Frontal, oblique, and lateral view radiographs of right hand and wristCOMPARISON: None available. No acute fractures or dislocations are seen. Mild degenerative changes of the first carpometacarpaljoint in setting of osteophytosis. Mild negative ulnar variance. No bone erosion or periostitis. Nosuspicious lytic or sclerotic lesion. No soft tissue calcifications or radiopaque foreign body. No significant carpal bone malalignment. BY ELECTRONICALLY SIGNING THIS REPORT, I THE ATTENDING PHYSICIAN ATTEST THAT I HAVE REVIEWED THE IMAGES FOR THE ABOVE PROCEDURE(S) AND AGREE WITH THE FINDINGS DOCUMENTED. Geeta Hummel MD, electronically signed on Aug 24 2025 05:46PM XR Wrist 3+ VW Right Result Date: 08/24/2025 EXAMINATION: XR WRIST 3+ VW RIGHT; XR HAND 3+ VW RIGHT INDICATION: pt with fall and continued r wrist and hand pain.; TECHNIQUE: Frontal, oblique, and lateral view radiographs of right hand and wristCOMPARISON: None available. No acute fractures or dislocations are seen. Mild degenerative changes of the first carpometacarpaljoint in setting of osteophytosis. Mild negative ulnar variance. No bone erosion or periostitis. Nosuspicious lytic or sclerotic lesion. No soft tissue calcifications or radiopaque foreign body. No significant carpal bone malalignment. BY ELECTRONICALLY SIGNING THIS REPORT, I THE ATTENDING PHYSICIAN ATTEST THAT I HAVE REVIEWED THE IMAGES FOR THE ABOVE PROCEDURE(S) AND AGREE WITH THE FINDINGS DOCUMENTED. Geeta Hummel MD, electronically signed on Aug 24 2025 05:46PM ECG 12 lead Result Date: 08/24/2025 Sinus rhythm with premature atrial depolarizations Inferior infarct , age undetermined Abnormal ECGWhen compared with ECG of 21-Aug-2025 22:25, Inferior infarct is now present Chest 1 VW Portable Result Date: 08/23/2025 EXAMINATION: XR CHEST 1 VW PORTABLE INDICATION: Hypoxia, eval pneumonia, fluid overload, pneumothorax; TECHNIQUE: AP chest COMPARISON: Chest radiograph dated 08/19/2025 In comparison to study of August 19, there are similar bibasilar and retrocardiac opacifications, likely representing pneumonia. Similar diffuse increased interstitial opacities may represent underlying mild pulmonary edema and severe emphysema. No pleural effusion or pneumothorax. Cardiac silhouette size is normal. Similar position of the left chest wall pacer device leads. Left proximal humerus fracture is again noted. Guy Callahan MD, electronically signed on Aug 23 2025 07:31AM ECG 12 lead, to be obtained, dyspnea Result Date: 08/22/2025 Sinus rhythm with premature atrial depolarizations Right axis deviation When compared with ECG of 19-Aug-2025 17:25, Questionable change in QRS axis ST no longer elevated in Anterior leads MSK Injection / Aspiration - US Result Date: 08/22/2025 EXAMINATION: IR MSK INJECTION / ASPIRATION - US INDICATION: continued swelling of R shoulder, elevated CRP; TECHNIQUE: The risks, benefits, and alternatives were explained to the patient and written informed consent obtained. A pre- procedure timeout confirmed three patient identifiers. Under ultrasound guidance, an appropriate spot was marked. The area was prepared and draped in standard sterile fashion. 4 cc of 1% Lidocaine was used to achieve local anesthesia. Under intermittent ultrasound guidance, a 22-gauge spinal needle was advanced into the posterior aspect of the shoulder joint. Aspiration trail resulted in dry tap. Lavage of the joint was performed with 2-3 CC of joint reddish fluid was obtained. The needle was removed, hemostasis achieved, and a sterile bandage applied. The patient tolerated the procedure well and left the department in good condition. There were no immediate complications. COMPARISON: None FINDINGS: Again seen is cortical irregularity in keeping with known p roximal left humeral fracture. 1. Imaging Findings - as above. 2. Procedure - Uneventful ultrasound-guided lavage with fluid aspiration, which was sent for microbiology. I Dr. Duran personally supervised the Resident/Fellowduring the landrum components of the above procedure and I have reviewed and agree with the Resident/Fellow findings/dictation. BY ELECTRONICALLY SIGNING THIS REPORT, I THE ATTENDING PHYSICIAN ATTEST THAT I HAVE REVIEWED THE IMAGES FOR THE ABOVE PROCEDURE(S) AND AGREE WITH THE FINDINGS DOCUMENTED. Adarsh Duran MD, electronically signed on Aug 22 2025 03:47PM CT Shoulder Left Without Contrast Result Date: 08/21/2025 EXAMINATION: CT SHOULDER LEFT WO CONTRAST INDICATION: shoulder pain; TECHNIQUE: MDCT images of the left shoulder were obtained without contrast. Coronal and sagittal reformats were obtained. DOSE: Acquisition sequence: 1) Spiral Acquisition 5.0 s, 23.0 cm; CTDIvol = 13.3 mGy (Body) DLP = 306.2 mGy-cm Total DLP (Body) = 306 mGy-cm COMPARISON: Radiograph of left shoulder dated August [address] pulmonary angiography dated August 19. FINDINGS: BONES: Mild diffuse osseous demineralization. There is a complete transverse comminuted displaced fracture involving the neck of the humerus. The fracture line is seen extending into inferior articular surface of the humeral head as well as the greater t uberosity. There is almost half shaft width anterior displacement of the distal fracture fragment with mild superior migration (approximately 1.9 cm) and impaction. The glenohumeral alignment is well-maintained. No suspicious focal osseous lesion is seen. Note is made of compression fracture of indeterminate age T1 vertebral body and possible superior endplate compression of T2. Visualized ribs do not show any overt fracture, however the evaluation is limited by subtle motion artifacts. SOFT TISSUES: Mild soft tissue edema surrounding the shoulder joint. No localized fluid collection or any hematoma formation. No effusion or evidence of tendon entrapment. No disproportionate muscle atrophy.OTHER: Note is made of severe centrilobular emphysema in visualized lungs. Consolidative opacity inthe left lower lobe is partially visualized. Few nodular opacity in left upper lung. 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 These findings are better evaluated in recent CT pulmonary angiography 1. Complete transverse comminuted displaced, impacted fracture involving neck of the humerus extending into inferior articular surface humeral head and greater tuberosity 2. Compression fracture of indeterminate age T1 vertebral body and possible superior endplate compression of T2. 3. Consolidative opacity in the left lower lobe is partially visualized. Few nodular opacity in left upper lung. These findings are better evaluated in recent CT pulmonary angiography. If clinically indicated consider CT chest follow-up in 3 months. BY ELECTRONICALLY SIGNING THIS REPORT, I THE ATTENDING PHYSICIAN ATTEST THAT I HAVE REVIEWED THE IMAGES FOR THE ABOVE PROCEDURE(S) AND AGREE WITH THE FINDINGS DOCUMENTED. Guy Hummel MD, electronically signed on Aug 21 2025 10:44AM ECG 12 lead Result Date: 08/21/2025 Sinus rhythm with premature atrial depolarizations Minimal voltage criteria for LVH, may be normal variant ( Morris product ) Nonspecific T wave abnormality Inferior GA - indeterminate age Abnormal ECG When compared with ECG of 07-Aug-2025 13:31, premature ventricular depolarizations are no longerpresent premature atrial depolarizations are now present ST elevation now present in Anterior leads Shoulder 2+ Vw Left Result Date: 08/20/2025 INDICATION: s/p fall, surgery, pain, swelling ?fx; TECHNIQUE: Three views of the left shoulder COMPARISON: None. FINDINGS: A comminuted and impacted fracture of the left proximal humerus involves thehumeral head and surgical neck. No dislocation. Glenohumeral joint is preserved. Mild joint space narrowing of the acromioclavicular joint. Imaged left lung demonstrates chain sutures from prior leftupper segmentectomy. Generator pack for a pacer is seen in the left upper chest wall. Comminuted and impacted left proximal humeral fracture involving the humeral head and surgical neck. No dislocation. Akanksha Ríos MD, electronically signed on Aug 20 2025 11:03AM US Upper Extremity Venous Bilateral Result Date: 08/20/2025 EXAMINATION: US UPPER EXTREMITY VENOUS BILATERAL INDICATION: Edema, pain/tenderness TECHNIQUE: Greyscale and Doppler evaluation was performed on the bilateral upper extremity veins. COMPARISON: None. FINDINGS: There is normal flow with respiratory variation in the bilateral subclavian veins. The right internal jugular vein is patent, shows normal color flow, spectral doppler, and compressibility. The right brachial veins are patent and show compressibility. The right axillary vein is not compressible and does not show normal [id number] color flow, consistent with nonocclusive thrombus in the right axillary vein. The rest of the exam was not performed as the patient was unable to toleratethe exam due to pain. 1. Nonocclusive deep vein thrombus of the right axillary vein. 2. This study only assessed bilateral subclavian, right internal jugular, right brachial, and right axillary veins. The rest of upper extremities were not assessed as the patient was unable to tolerate the exam due to pain. NOTIFICATION: The findings were discussed with, and acknowledged by Dr. Albin Puentes by Dr. Sherry Valladares, using [employer] Chat on 08/20/2025 at 9:53 am, 3 minutes after discovery of the findings. BY ELECTRONICALLY SIGNING THIS REPORT, I THE ATTENDING PHYSICIAN ATTEST THAT I HAVE REVIEWED THE IMAGES FOR THE ABOVE PROCEDURE(S) AND AGREE WITH THE FINDINGS DOCUMENTED. Sherry Gomez MD, electronically signed on Aug 20 2025 10:38AM XR Chest 1 Vw Portable Result Date: 08/19/2025 EXAMINATION: XR CHEST 1 VW PORTABLE INDICATION: sob, cough /pna; TECHNIQUE: Semi-upright AP view ofthe chest COMPARISON: CTA chest 19 August 2025 at 18:44 and 07 August 2025, chest radiograph 07 August 2025 FINDINGS: Left-sided pacer with leads in the right atrium and right ventricle, unchanged.Mild cardiomegaly is similar. Mediastinal and hilar contours are unchanged. No pulmonary edema. Diffuse increased interstitial opacities are again noted and related to underlying severe emphysema. Patchy airspace opacities are again noted in the lower lobes which is concerning for pneumonia. No pleural effusion or pneumothorax. No acute osseous abnormalities. Partially imaged comminuted left proximal humeral fracture. Status post right shoulder arthroplasty with the humeral head component demonstrating anterior dislocation. Contrast from recent CT examination is seen in the renal collectingsystems bilaterally. Patchy bilateral lower lobe opacities suggesting pneumonia as seen on prior CT. Partially imaged comminuted left proximal humeral fracture and anteriorly dislocated humeral component of a right shoulder arthroplasty. Akanksha Ríos MD, electronically signed on Aug 19 2025 10:25PM XR Shoulder 2+ Vw Right Result Date: 08/19/2025 INDICATION: s/p fall, surgery, pain, swelling ?fx; TECHNIQUE: Right shoulder, three views COMPARISON: CT chest 07 August 2025 and right shoulder radiographs 14 August 2025 FINDINGS: Status post right shoulder arthroplasty with persistent anterior, medial and inferior displacement of the humeral head component relative to the glenoid. No acute fracture. Acromioclavicular joint demonstrates mild degenerative changes. Fragmentation of the acromion appears chronic. No periarticular soft tissue calcifications. Severe emphysema is noted in the imaged right lung. 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 No acute fracture. Akanksha Ríos MD, electronically signed on Aug 19 2025 10:25PM XR Elbow 3+ VW Right Result Date: 08/19/2025 INDICATION: elbow pain; TECHNIQUE: AP and lateral views of the elbows bilaterally COMPARISON: None.FINDINGS: On the left, no acute fracture or dislocation. No elbow joint effusion. Mild degenerativechanges of the humeroulnar joint. No concerning lytic or sclerotic osseous abnormality. No embeddedradiopaque foreign body or soft tissue calcification. On the right, no acute fracture or dislocation. No elbow joint effusion. Mild degenerative changes of the ulnohumeral joint. No suspicious lytic or sclerotic osseous abnormality. Mild soft tissue irregularity is seen along the dorsal aspect of th e elbow. No acute fracture or dislocation involving either elbow. Akanksha Ríos MD, electronically signed on Aug 19 2025 10:24PM XR Elbow 3+ VW Left Result Date: 08/19/2025 INDICATION: elbow pain; TECHNIQUE: AP and lateral views of the elbows bilaterally COMPARISON: None.FINDINGS: On the left, no acute fracture or dislocation. No elbow joint effusion. Mild degenerativechanges of the humeroulnar joint. No concerning lytic or sclerotic osseous abnormality. No embeddedradiopaque foreign body or soft tissue calcification. On the right, no acute fracture or dislocation. No elbow joint effusion. Mild degenerative changes of the ulnohumeral joint. No suspicious lytic or sclerotic osseous abnormality. Mild soft tissue irregularity is seen along the dorsal aspect of th e elbow. No acute fracture or dislocation involving either elbow. Akanksha Ríos MD, electronically signed on Aug 19 2025 10:24PM CT Angiogram Chest PE : Arteriogram Addendum Date: 08/19/2025 ADDENDUM The patient is status post right shoulder arthroplasty (not reverse shoulder arthroplasty). The anterior dislocation of the humeral head component relative to the glenoid appears similar compared to the prior CTA chest from August 07, 2025. Akanksha Ríos MD, electronically signed on [id number] 08:47PM Result Date: 08/19/2025 EXAMINATION: CTA CHEST WITH CONTRAST INDICATION: pt w/ sob, chest pain, tachycardia; TECHNIQUE: Axial multidetector CT images were obtained through the thorax after the uneventful administration of intravenous contrast including reformatted coronal, sagittal, and oblique and axial maximal intensityprojection (MIP) images. DOSE: Acquisition sequence: 1) Stationary Acquisition 0.5 s, 0.5 cm; CTDIvol = 3.0 mGy (Body) DLP = 1.5 mGy-cm 2) Stationary Acquisition 2.0 s, 0.5 cm; CTDIvol = 12.1 mGy (Body) DLP = 6.1 mGy-cm 3) Spiral Acquisition 4.1 s, 30.6 cm; CTDIvol = 8.2 mGy (Body) DLP = 252.0 mGy-cm Total DLP (Body) = 260 mGy- cm COMPARISON: CTA chest 07 August 2025 FINDINGS: VASCULATURE: Main pulmonary artery is borderline enlarged at 3.1 cm. No filling defects to the subsegmental level to indicate a pulmonary embolism. Ascending aorta demonstrates fusiform dilatation to 4.2 cm and the descending thoracic aorta is dilated up to 3.4 cm, as seen previously. No aortic dissection or intramural hematoma. HEART: Mild cardiomegaly. Pacing leads terminate within the right atrium and right ventr icle. Moderate coronary artery calcifications. No significant pericardial effusion. AXILLA, MARCELL, AND MEDIASTINUM: No lymphadenopathy or mass. The esophagus is patulous which can be seen with esophageal dysmotility. PLEURAL SPACES: No pleural effusion or pneumothorax. LUNGS: Heterogeneous consolidative opacities in both lower lobes can be seen with pneumonia. Severe centrilobular emphysema is again demonstrated. AIRWAYS: Airway wall thickening suggesting inflammation is noted. Central airways are patent to the segmental bronchial level. BASE OF NECK: 5 mm rim calcified thyroid nodule is notedwhich does not require specific sonographic follow-up. ABDOMEN: Visualized upper abdomen unremarkable. BONES: A comminuted left proximal humeral fracture is incompletely imaged. Status post right reverse shoulder arthroplasty with anterior subluxation/dislocation of the hardware relative to the glenoid. A subacute fracture of the sternum is noted (602:74). Compression deformities of the T1 and T11 vertebral bodies are unchanged. SOFT TISSUES: Soft tissue stranding is seen within the left shoulder secondary to the humeral fracture. 1. No pulmonary embolism or acute aortic pathology. 2. Severe emphysema with mild dilatation of thepulmonary artery measuring up to 3.1 cm, unchanged, which can be seen with pulmonary arterial hypertension. 3. Mild dilatation of the ascending and descending thoracic aorta, unchanged. See recommendations below. 4. Heterogeneous consolidative opacities in both lower lobes may reflect pneumonia. 5.Acute, comminuted left proximal humeral fracture. 6. Status post reverse right shoulder arthroplasty with anterior subluxation/dislocation of the humeral component relative to the glenoid. 7. Chroniccompression deformities of T1 and T11 vertebral bodies. RECOMMENDATION(S): Follow-Up Imaging: Thoracic aorta 4.0 - 4.4 cm in diameter - if stable findings at 12 months or interval increase in diameter is < 3 mm, consider follow-up with ECG-gated chest CTA in 2 years. Management recommendations for follow-up of thoracic aortic aneurysm are based on existing literature and multidisciplinary consensus document of our institution, including Cardiology, Vascular Surgery, and Cardiac Surgery and it is specifically designed for this program. Carito EM, et al. ACC/AHA Guideline for the Diagnosis and Management of Aortic Disease: A Report of the [place] [employer] [employer] of[employer] Joint Committee on Clinical Practice Guidelines. Circulation 2021; 146:k026-l383. Erbel R, et al. ESC Guidelines on the diagnosis of thoracic and abdominal aorta of the adult. Eur Heart J 2014;35:2689-5323. Cindy EL, et al. The Society of Vascular Surgery practice guidelines on the care of patients with an abdominal aortic aneurysm. J Vasc Surg 2018;67:2-77. Joseph V, et al. Management of Descending Thoracic Aortic Disease: Clinical Practice Guidelines of the Society of Vascular Surgery. Eur J Vasc Endovasc Surg 2017;53:4-52. Akanksha Ríos MD, electronically signed on Aug 19 2025 07:13PM US Lower Extremity Venous Left Result Date: 08/19/2025 EXAMINATION: US LOWER EXTREMITY VENOUS LEFT INDICATION: Left lower extremity pain and edema. TECHNIQUE: Mullen scale, color, and spectral Doppler evaluation was performed on the left lower extremity veins. The patient could not tolerate evaluation of the calf veins. COMPARISON: None. FINDINGS: There is normal compressibility, color flow, and spectral doppler of the left common femoral, femoral, andpopliteal veins. The patient was unable to tolerate evaluation of the calf veins. There is normal respiratory variation in the common femoral veins bilaterally. No evidence of medial popliteal fossa ([place]) cyst. Unable to evaluate the calf veins, but there is no evidence of deep venous thrombosis in the other left lower extremity veins. BY ELECTRONICALLY SIGNING THIS REPORT, I THE ATTENDING PHYSICIAN ATTEST THAT I HAVE REVIEWED THE IMAGES FOR THE ABOVE PROCEDURE(S) AND AGREE WITH THE FINDINGS DOCUMENTED. Geo Ríos MD, electronically signed on Aug 19 2025 07:17PM CT Cervical Spine Without Contrast Result Date: 08/19/2025 EXAMINATION: CT CERVICAL SPINE WO CONTRAST INDICATION: s/p fall; TECHNIQUE: Contiguous axial imagesobtained through the cervical spine without intravenous contrast. Coronal and sagittal reformats were reviewed. DOSE: Acquisition sequence: 1) Sequenced Acquisition 18.0 s, 18.0 cm; CTDIvol = 50.2 mGy (Head) DLP = 903.1 mGy-cm 2) Spiral Acquisition 5.7 s, 21.2 cm; CTDIvol = 24.5 mGy (Body) DLP = 518.9 mGy-cm Total DLP (Body) = 519 mGy-cm Total DLP (Head) = 903 mGy-cm Note: This radiation dose report was copied from accession #[id number] (CT HEAD WO CONTRAST) COMPARISON: CT chest 07 August 2025 FINDINGS: Reversal of the normal cervical lordosis is demonstrated. No traumatic malalignment. R otation of C1 on C2 is likely due to head positioning within the scanner. No definite acute fractures are identified. There is moderate anterior height loss of the T1 vertebral body, unchanged from prior CT from July 2025. Tlno-vl-[id number] multilevel degenerative changes with intervertebral disc space narrowing, endplate sclerosis, and osteophyte formation. No high-grade central canal stenosis. Mild multilevel neural foraminal stenosis without high-grade narrowing.There is no prevertebral edema. Stranding in the left supraclavicular soft tissues relates to a left proximal humeral fractureas seen on the biochemistry teacher views. Severe emphysema is noted in the left lung apex. Thyroid gland demonstra kasi a rim calcified 5 mm nodule on the right which does not require dedicated imaging follow-up. 1. No acute cervical spine fracture or traumatic malalignment. 2. Left proximal humeral fracture imaged on the biochemistry teacher view. 3. Chronic compression deformity of the T1 vertebral body. Akanksha Ríos MD, electronically signed on Aug 19 2025 06:57PM CT Head Without Contrast Result Date: 08/19/2025 EXAMINATION: CT HEAD WO CONTRAST [id number] CT BID-HEAD INDICATION: s/p fall; TECHNIQUE: Contiguous axial images of the brain were obtained without contrast. Coronal and sagittal reformations as well as bone algorithm reconstructions were provided and reviewed. DOSE: Acquisition sequence: 1) Sequenced Acquisition 18.0 s, 18.0 cm; CTDIvol = 50.2 mGy (Head) DLP = 903.1 mGy-cm 2) Spiral Acquisition 5.7 s, 21.2 cm; CTDIvol = 24.5 mGy (Body) DLP = 518.9 mGy-cm Total DLP (Body) = 519 mGy-cm Total DLP (Head) = 903 mGy-cm COMPARISON: None. FINDINGS: There is no evidence of fracture, acute large territorial infarction, hemorrhage, edema, or mass. There is prominence of the ventricles and sulci suggestive of involutional changes. Moderate periventricular and subcortical white matter hypodensitiesare nonspecific, but likely reflect the sequela of chronic microvascular infarction. The visualizedportion of the paranasal sinuses, mastoid air cells, and middle ear cavities are clear. Patient is status post bilateral lens replacements. 1. No acute intracranial abnormality. Akanksha Ríos MD, electronically signed on Aug 19 2025 06:49PM XR Shoulder 2+ VW Right Result Date: 08/14/2025 EXAMINATION: XR SHOULDER 2+ VW RIGHT INDICATION: R Shoulder Pain; TECHNIQUE: Three views right shoulder COMPARISON: 01 August 2025 Redemonstrated reverse right shoulder arthroplasty with grossly intact hardware and maintained alignment. There is no acute fracture.. Slight interval decrease in streaky opacities in the right upperlung zone. Mild degenerative changes at the glenohumeral joint.. Kate Lugo MD, electronically signed on Aug 14 2025 02:56PM CT Angiogram Chest PE : Arteriogram Result Date: 08/08/2025 EXAMINATION: CTA CHEST WITH CONTRAST INDICATION: patient with new 02; TECHNIQUE: Axial multidetector CT images were obtained through the thorax after the uneventful administration of intravenous contrast including reformatted coronal, sagittal, and oblique and axial maximal intensity projection (MIP) images. DOSE: Acquisition sequence: 1) Sequenced Acquisition 0.5 s, 0.2 cm; CTDIvol = 7.2 mGy (Body) DLP = 1.4 mGy-cm 2) Stationary Acquisition 3.7 s, 0.2 cm; CTDIvol = 61.8 mGy (Body) DLP = 12.4 mGy-cm 3) Spiral Acquisition 5.4 s, 35.0 cm; CTDIvol = 12.6 mGy (Body) DLP = 431.5 mGy-cm Total DLP (Body) = 445 mGy-cm COMPARISON: Outside CT chest available in the [facility] 28 May 2025 FINDINGS: VASCULATURE: No pulmonary embolism to the subsegmental level. The ascending thoracic aorta is mildly dilated measuring up to 4.1 cm. There are mild atherosclerotic calcifications of the thoracic aorta. HEART: Normal heart size. Mild atheromatous coronary calcifications. No significant pericardial effusion. AXILLA, MARCELL, AND MEDIASTINUM: No lymphadenopathy or mass. Mildly dilated air- filled and patulous esophagus predominantly in the upper and midportion. PLEURAL SPACES: No pleural effusion or pneumothorax. LUNGS: Postsurgical changes from left upper posterior segmentectomy. Diffuse emphysematouschanges noted in bilateral lung villavicencio in the form of emphysematous bullae, more so in the bilateral upper lobes. Few patchy areas of ground-glass in noted in the apical segment of bilateral upper lobe,likely representing mild mosaic attenuation related to regional differences in ventilation. Fibroatelectatic changes noted involving the most of the right upper lobe, posterior and lateral segmentof right lower lobe and apicoposterior segment of left upper lobe. There is a 2.3 by 1.5 cm irregular subpleural consolidative opacity in the right lung base and an additional 16 mm subpleural nodular opacity in the medial right lung base. AIRWAYS: Patent central airways. There are filling defects noted in the anterior aspect of the left mainstem bronchus, likely secretions. Bilateral lower lobe p redominant diffuse bronchial wall thickening most pronounced in the right lower lobe with scatteredareas of mucous plugging. BASE OF NECK: Limited evaluation due to metallic artifacts from processesin right humerus, grossly normal. Lines and tubes: Trans subclavian atrial ventricular pacer leads continuous from left pectoral generator flow expected course. ABDOMEN: The study is not tailored for subdiaphragmatic evaluation. Partially imaged small hepatic cyst. Partially imaged scattered calcifications in the pancreas likely sequela of chronic pancreatitis BONES: Reduced height T1 and T10 vertebral body noted, likely compression fracture. Visualized spine shows degenerative changes in the form of osteophytes. Mild scoliosis with convexity towards right side. SOFT TISSUES: Unremarkable. No evidence of acute pulmonary embolism or aortic abnormality. Bilateral lower lobe predominant diffuse bronchial wall thickening most pronounced in the right lower lobe with areas of mucoid impaction. Subpleural nodular consolidative opacities in the right lung base, likely infectious or inflammatory etiology possibly related to aspiration. Stable postsurgical changes left upper lobe. Mildly dilated air-filled and patulous esophagus, may be related to reflux/dysmotility. Other stable findings BY ELECTRONICALLY SIGNING THIS REPORT, I THE ATTENDING PHYSICIAN ATTEST THAT I HAVE REVIEWED THE IMAGES FOR THE ABOVE PROCEDURE(S) AND AGREE WITH THE FINDINGS DOCUMENTED. Noble Clements MD , Kate Lugo MD, electronically signed on Aug 08 2025 11:37PM US Upper Extremity Venous Right Result Date: 08/08/2025 EXAMINATION: US UPPER EXTREMITY VENOUS RIGHT INDICATION: Right upper extremity edema. TECHNIQUE: Mullen scale and Doppler evaluation was performed on the right upper extremity veins. COMPARISON: None. FINDINGS: There is normal flow with respiratory variation in the bilateral subclavian veins. The right internal jugular, axillary, and brachial veins are patent, show normal color flow, spectral doppler, and compressibility. The right basilic, and cephalic veins are patent, compressible and show normal color flow. No evidence of deep vein thrombosis in the right upper extremity. BY ELECTRONICALLY SIGNING THIS REPORT, I THE ATTENDING PHYSICIAN ATTEST THAT I HAVE REVIEWED THE IMAGES FOR THE ABOVE PROCEDURE(S) AND AGREE WITH THE FINDINGS DOCUMENTED. Shivani Mcelroy MD , David Duran MD, electronicallysigned on Aug 08 2025 05:11PM XR Chest 1 VW Result Date: 08/08/2025 EXAMINATION: XR CHEST 1 VW INDICATION: increased 02 post op; increased 02 post op; TECHNIQUE: AP portable chest. COMPARISON: 06 August 2025 chest radiograph Since 06 August 2025 chest radiograph, stable nonspecific interstitial opacities, most notable inthe right upper lung. These opacities may represent pneumonia in the appropriate clinical context, although they may also represent chronic emphysematous changes or other chronic disease. Recommend CT chest with contrast for further evaluation. No significant pneumothorax. No significant pleural abnormality. Mildly increased retrocardiac opacity may be minimal atelectasis. Unremarkable cardiomediastinal silhouette. Monitoring and support devices are unchanged. Multiple serpiginous opacities distributed throughout the view of the hemithorax are likely outside of the patient. RECOMMENDATION(S):CT chest with contrast NOTIFICATION: The findings were discussed with, and acknowledged by Ching Martin by Dr. Cristopher Perry, using [employer] Secure Chat on 08/07/2025 at 3:01 pm, 5 minutes after discovery of the findings. BY ELECTRONICALLY SIGNING THIS REPORT, I THE ATTENDING PHYSICIAN ATTEST THAT I HAVE REVIEWED THE IMAGES FOR THE ABOVE PROCEDURE(S) AND AGREE WITH THE FINDINGS DOCUMENTED. Duran Chaudhari MD, electronically signed on Aug 08 2025 09:02AM ECG 12 lead Result Date: 08/07/2025 Sinus rhythm with frequent premature ventricular depolarizations and atrial paced complexes Inferior infarct , age undetermined Abnormal ECG When compared with ECG of 06-Jul-2025 09:09, Inferior infarct is now present Chest 1 VW Portable Result Date: 08/06/2025 EXAMINATION: XR CHEST 1 VW PORTABLE INDICATION: 74F history of emphysema now with shortness of breath despite nebulizers; There are no prior chest radiographs. The combination of severe emphysema and moderate interstitialpulmonary abnormality could all be smoking related. However without prior chest radiographs I can not tell if the interstitial abnormality is an acute problem such as mild pulmonary edema and perhapseven concurrent right upper lobe pneumonia. Any prior chest radiographs performed elsewhere should be obtained for [id number]-vo-[id number] comparison. Heart size is normal. No appreciable pleural abnormality ispresent. Trans subclavian atrial ventricular pacer leads continuous from the left pectoral generator follow expected courses. Romel Glynn MD, electronically signed on Aug 06 2025 09:04AM Assessment and Plan: 74 y.o. 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 S/p R shoulder IR aspiration 08/22 with no culture growth. Patient currently inpatientwith continued pain control. PLAN # Pain control # History of Opioid Use Disorder, on suboxone Pt with a history of opioid use disorder in setting of opioids for pancreatitis, recently started on suboxone (May). Requiring high amounts of opioids in this setting given her humerus fractureand post-R shoulder hemiarthroplasty. - Continue low dose suboxone, increased to TID on 08/27 per chronic pain recommendations - Started Lyrica 75 mg BID 08/26 - Chronic pain consulted, appreciate recommendations: S/p Morphine SATURATION DIVER 08/22-08/28 Switched to Morphine 60 mg PO Q4H PRN + Morphine IV, per their last note, switched to PO oxycodone 10 mg PO q4h PRN Added on methocarbamol 500 mg QID on 08/27 # L proximal humerus comminuted transverse fracture s/p fall # Significant LUE edema Pt with a mechanical fall after misjudging where the toilet seat is and falling onto her L shoulder. Given persistent pain, presented to the ED. CT scan of L humerus showed acceptable alignment amenable to non-operative treatment with immobilization in a sling; however, pt unable to tolerate sling consistently with continued pain. Repeat LUE XR with interval callus formation and no new dislocation or fracture. - Ortho following, will plan for 1-2 week follow-up with L shoulder X-Ray LUE wrapped for compression due to edema with distal pulse, sensation, and motion checks every shift Re-engaged on 08/28 given continued pain, and significant swelling - Activity restrictions: can come out of the sling for gentle pendulum range of motion. She may usethe left upper extremity for light activity daily living but no heavy lifting more than 5 pounds (coffee cup weight bearing) - Pain control, see #Pain control as above - Appreciate OT evaluation # C/F R Wrist Drop Pt with R wrist pain and difficulty with voluntary extension. Ortho examined on 08/28 and not concerned about septic wrist, but are concerned for possible nerve impingement. - Follow-up R humerus XR - Neurology consult, obtaining MRI right brachial plexus # R shoulder swelling/pain, c/f R shoulder septic arthritis # Chronic R rotator cuff arthropathy s/p R total shoulder arthroplasty 07/11/25, conversion to R shoulder hemiarthroplasty with glenoid and humeral implant on 08/01/25 # Chronic right shoulder dislocation Pt with increased R shoulder pain and swelling post-surgery on 08/01 w/concern for possible septic joint w/CRP of 293. Initially given antibiotics, but d/c'ed for IR procedure on 08/20 to increase yield of IR tap on 08/22. Joint cultures NGTD. X ray showing chronic anterior dislocation of the humeral head relative to the glenoid, ortho reviewed and no acute intervention required, and will follow-up OP (Dr. Goins). - S/p vanc/cefepime on 08/19 - See #Pain control as above # Acute on chronic hypoxic respiratory failure (bl 4L NC) # C/f HAP # Leukocytosis, improved # Consolidative opacities in both lower lobes (from CT chest 08/19) # COPD without exacerbation Pt with noted consolidative opacities in both lower lobes from CT chest, initially w/o respiratory symptoms and baseline 4L NC. However, pt developed increased O2 requirements overnight, likely positional or 2/2 mucoid impaction; however, CXR still with evidence of PNA. Given pt was at rehab prior to current admission, treated recently for PNA with bactrim (08/01-08/10), and significant underlying lung disease will plan to treat for HAP. On 08/25, pt lost IV access and her IV antibiotics were transitioned to PO linezolid + levofloxacin. Overall, given pt's clinical stability very low concern for true MRSA HAP despite + MRSA swab, thus will plan to complete course of HAP coverage with Levofloxacin. - Vanc/Cefepime 08/23 - 08/25, Linezolid 08/26, Levofloxacin 08/26 - 08/29 - ANALYTICAL DATA MINER consultation appreciated, ok for regular diet - Continue home Dulera + Spiriva # Moderate hyponatremia, improving Pt with Na of 125 08/25. Overall most concerned for hypovolemic hyponatremia vs tea and toast givenpt unable to feed herself consistently. Of note, patient also getting vancomycin in Dextrose which could be contributing. Last diuretic dose on 08/22. Urine studies consistent with ADH being on givenUrine osms > 200. Urine Na is > 20, FeUrea < 55%. With IVF trial, Na increased, consistentwith likely low EABV though if pt does have SIADH it is likely in setting of uncontrolled pain. - 1L LR fluid challenge w/improvement in Na this AM - Continue to monitor Na # Urinary retention Pt with urinary retention this admission. Think that it is likely multifactorial, likely related tosome underlying pelvic floor dysfunction (pt was having trouble urinating prior to this hospitalization) + constipation from opioid use/decreased hydration + immobility. UA w/o evidence of infection. - Straight cath x4 - Helton placed overnight 08/25 - 08/26 - TOV attempted on 08/29, unsuccessful; Helton replaced # Access Pt with very difficult upper extremity access given RUE DVT + L humerus proximal fracture and resulting edema. Given need for SATURATION DIVER + other intermittent IV medication needs, including electrolyte repletion + frequent lab draws, will pursue central line placement as PICC/midline are not options. - IR consult for temp access to be done on 08/27 # New R axillary vein DVT Pt with worsening R arm pain post-fall on L shoulder, w/increased swelling over right shoulder and lower arm. She was found on admission to have a new R axillary vein DVT. - Hep gtt started 08/20. Does not need to hold for IR drain of R shoulder. - Switched to apixaban on 08/25 # Constipation -Senna/miralax scheduled + bisacodyl suppository PRN CHRONIC CONDITIONS # Chronic HFrEF Nt-proBNP was normal 125 on admission w/no signs/symptoms of volume overload. - on home lasix 20mg MWF, restart 08/22 due to initial hypotension in ED (improved with 1L NS) - was holding entresto given hypotension, resumed 08/21 - daily weights, strict I&O # SSS s/p dcICD # NSVT PVC burden of 10% on prior Zio. - change metop succ 12.5 bid -> metop tart 12.5 bid given hypotension on arrival, now currently low 100s # Chronic iron deficiency anemia - baseline hb 9-10s - iron low on 08/03, ferritin 101. - continue po iron # Moderate malnutrition has lost >30lbs over last 6 months d/t poor appetite. Hypocalcemia corrected to ~9 w/albumin. - multivitamins, ensure tid, nutrition consult. Need help with food due to b/l arm pain # Hypothyroidism - levothyroxine 50 # Anxiety/depression - ativan 0.5 bid -> changed to BID PRN due to high dose opioid use, c/h paroxetine 20 # GERD - omeprazole # HLD - lipitor. # Nonobstructive CAD - asa 81, stop while on therapeutic AC for now Core Measures Nutrition: Oral. Hydration: Oral. Functional status: Out of bed to chair with assist. Bowel Function: Constipated. Lines/Tubes/Drains: Peripheral IV. VTE prophylaxis: Therapeutic anticoagulation. Living Situation: lives alone. Though recently coming from rehab. PAML Status: The preadmission medication list is ACCURATE and COMPLETE.. Anticipated Disposition: Acute rehabilitation vs SNF. Anticipated Length of Stay: 4-5 days. Advanced Care Planning: Full Code. Contacts/HCP/Surrogate: Extended Emergency Contact Information Primary Emergency Contact: Ashanti Green Address: [address] [place] [address] [place] Mobile Relation: Daughter Secondary Emergency Contact: Rory Craft Address: [address] [place] [address] [facility] Mobile Relation: Son E/M Services: I spent 50 minutes in this clinical encounter reviewing the medical record, seeing and examining the patient, placing orders, writing notes, performing signout, and communicating with the applicable medical and nursing teams. Eloy Gomez MD Attending Physician Section of Hospital Medicine [facility] Complexity Bundle Hyponatremia (present on admission) : Labs repeated - Sodium of 130 on 08/27/2025 Anemia secondary to chronic disease and inflammation (present on admission) : Labs repeated - Hemoglobin of 7.8 on 09/01/2025 Moderate Chronic Malnutrition (present on admission) : Assessed - Severity based on ASPEN criteria as documented by the cad manager and is ordered for vitamin/mineral supplementation * Shannan Arellano OT - 08/31/2025 5:10 PM EST OCCUPATIONAL THERAPY PROGRESS NOTE Rehabilitation Services - Inpatient Occupational Therapy Level of Care: Floor Interdisciplinary Recommendations OT Discharge rec: (Rehab) Movement Precautions: ROM, Bracing/Orthoses (RUE sling for comfort, LUE sling at all times, may remove briefly for gentle pendulums and for elbow/wrist/digit ROM) ok to trial cuff and collar sling per ortho trauma, wrist cock-up per ortho trauma WB Status: Extremity Weight Bearing Status: Left Upper Extremity, Right Upper Extremity LUE Weight Bearing : (coffee cup weightbearing(5lb limit) ok to use for light ADLs) RUE Weight Bearing : NWB Activity and Mobility Recommendations: [x]Patient is at high risk for deconditioning. Please maximize independence in ADLs and encourage frequent mobility including: Daily mobility per -[facility] mobility goals established, lift OOB to chair 3x/day [x]Patient is at risk for pressure injury. Please limit sitting time to one hour on standard air cushion given patient???s inability to effectively reposition in chair. [x]Patient is at risk for falls. Please use chair alarm when out of bed. [x]Patient is at risk for delirium. Please consider implementing strategies to reduce risk including: OOB to chair 3 day for all meals Familiar pictures and items within view News or nonverbal music on during daytime Lights on during day with shades UP Frequent Reorientation to clock, calendar, and window Encourage participation with ADLs Encourage family presence at bedside *For questions please check the patient???s care team for the most updated OT contact information [x]Updated medical status including labs, radiology, procedures and medications since previous visit reviewed SUBJECTIVE: I'm so scared I know how important this is Grab a saw and cut both my arms off Patient goal and desires: stand up OBJECTIVE: CLIENT FACTORS: Mental Functions: Level of Consciousness: Alert Orientation Level: Oriented X4 Following Directions: Follows all directions without difficulty Success rate following directions: 100% of the time Patient Behaviors/Mood: Appropriate for situation, Calm, Cooperative Memory: Intact (recalls therapist from previous visits) Attention to Tasks: Attends to task, Attends to conversation Safety Awareness: Full awareness of safety precautions, Full awareness of deficits, Full awareness of errors made (verbalizes good understanding of safety precautions/recommendations) Insight: (Fair insight into abilities/limitations) Problem Solving: Assistance required to implement solutions, Assistance required to generate solutions Behaviors: Alert Aphasia: None present Functional Communication: Intact OCCUPATIONS: Current Activities of Daily Living: Feeding: Maximal assistance (sip water, unable to use arms to assist) Where Assessed - Feeding: Bed level Upper Body Dressing Assistance Required: Maximal assistance (change gown, able to lean forward for positioning) Where Assessed-Upper Body ADLs: Chair Lower Body Dressing Assistance Required : Maximal assistance (kick legs for socks) Where Assessed-Lower Body ADLs: Edge of bed ADL Comments: grossly limited by impaired use of bimanual UE iso pain and precautions Functional Mobility Bed Mobility: Rolling: Activity does not occur Supine to Sit: Moderate assistance (able to perform move legs over toward EOB, requires mod A to effectively complete transfer) Adaptive Equipment: HOB elevated Bed Moblity Barriers: Pain, Precautions, Non functioning dominant upper extremity, Non functioning non dominant upper extremity Transfers: Sit to Stand: Minimal assistance, 2 person Stand to Sit: Minimal assistance, 2 person Bed to chair: Moderate assistance, 2 person (3-4 small steps to pivot to chair) Gait Belt Used For Transfers: Yes Transfer Barriers: Pain, Balance Gait: Ambulation Assistance: Activity does not occur Assistive Device: None Balance: Sitting - Static: Supervision Sitting - Dynamic: Contact guard Standing - Static: Minimal assistance, Moderate assistance, 2 person Standing - Dynamic: Activity does not occur [x]Vital signs monitored and found to be within normal limits with exceptions noted in Flowsheets/detailed below Hemodynamic Response/Aerobic Capacity O2>88% on 4L Pain: 8/10 at rest. 8/10 with activity. 8/10 at recovery. Location: bilateral arms/shoulders Quality: doesn't describe Intervention: Medication (See MAR), Breathing techniques, Emotional support, Reposition Limiting Symptoms: Pain anxiety Additional Tests/Measures: 08/31/25 1430 Splinting Splinting:Reason for visit Skin check Location 1 Right Splint Type Prefabricated;Custom;Resting hand splint Recommended Splint Wearing Schedule During activity and when sleeping to prevent R wrist drop Splinting Comments no areas of skin redness/skin breakdown secondary to splint, patient reports increased anxiety with wear, discomfort, removed per patient preference & wrist positioned in neutral in patient's lap Team Communication: Communicated with [x]RN [] [x]PT(cris[x]) [x]SW RE: Patient status []Rodeo Clown utilized for session Intervention: Patient/Caregiver Education RE: Role of OT OT plan of care Discharge recommendations ADL strategies ROM Functional mobility training Orthotic management Pt left seated with all needs in reach, PCT at bedside to assist with feeding ASSESSMENT/CLINICAL IMPRESSION: Mayra Craft is a 74 y.o. female with chronic R rotator cuff arthropathy s/p R total shoulder arthroplasty 07/11/25 then conversion to R shoulder hemiarthroplasty with glenoid and humeral implant on 08/01/25 w/recent hospitalization 08/01-08/10 due to SOB w/CHF vs COPDE/PNA mucoid impaction, dced to SNF, who presents to occupational therapy during hospitalization after presenting on 08/19 with worsening b/l shoulder pain after fall at SNF 4 days prior to admission found to have L humeral Fx and RUE DVT. S/p R shoulder IR aspiration 08/22 with no culture growth.Patient currently inpatient with continued pain control. Attempted cuff and collar sling, patient unable to tolerate due to anxiety, also w/ noted edema at cuff, sling removed. Patient verbalizes good understanding of ignacio UE precautions, continue to encourage and provide education. Pt is demonstrating improvements in occupational engagement as evidenced by participation in functional mobility/transfer training for OOB seated meal routine. Pt continues to present below baseline in areas specific to client factors such as ADL/Self-care, Altered balance, Decreased activity tolerance, Decreased ROM, Decreased strength/muscular endurance, Pain, Non-functional R UE, Non-functional L UE and occupations such as Functional Mobility, Decreased activity tolerance, Upper body ADL's, Lower body ADL's, IADL's, Toileting, Feeding, Safety Judgemen t. 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 Acute OT will continue to follow and progress per intervention plan. Treatment Plan: ADL retraining, Balance training, Bed mobility, Fine motor coordination activities, Functional mobility training, IADL retraining, Patient/family education, Upper extremity strengthening, Upper extremity ROM Patient agrees with the above goals and is willing to participate in the rehabilitation program: Yes Time: 6348-7332, [id number] Occupational Therapist Name: Shannan Arellano OT License #[id number] Occupational Therapist Pager: [phone] * Jemima Jara, PT - 08/31/2025 5:06 PM EST PHYSICAL THERAPY PROGRESS NOTE Rehabilitation Services - Inpatient Physical Therapy Level of Care: Floor Interdisciplinary Recommendations PT Discharge rec: Rehab Movement Precautions: ROM, Bracing/Orthoses WB Status: Extremity Weight Bearing Status: Left Upper Extremity, Right Upper Extremity LUE Weight Bearing : (CCWB, no lifting >5#, sling at all times, ok for pendulums/gentle ROM) RUE Weight Bearing : NWB (ROMAT) Activity and Mobility Recommendations: [x]Patient is at high risk for deconditioning. Please maximize independence in ADLs and encourage frequent mobility including: Lift for all mobility including transfers to chair 3x/day [x]Patient is at risk for pressure injury. Please limit sitting time to one hour on standard air cushion given patient???s inability to effectively reposition in chair. [x]Patient is at risk for falls. Please use chair alarm when out of bed. [x]Patient is at risk for delirium. Please consider implementing strategies to reduce risk including: OOB to chair 3 day for all meals Familiar pictures and items within view News or nonverbal music on during daytime Lights on during day with shades UP Frequent Reorientation to clock, calendar, and window Encourage participation with ADLs Encourage family presence at bedside *For questions please check the patient???s care team for the most updated PT contact information [x]Updated medical status including labs, radiology, procedures and medications since previous visit reviewed Subjective: I can still see it. My arm hit a porcelain sink and I went down. The woman standing a mere few feet away from me was telling me to get up recounting her fall at rehab. OT asked if pt would like to talk further through coping strategies, PTSD re: fall w/ SW, pt says yes, SW aware aftersession Patient-Stated Goal: none stated, agreeable to PT/OT session and to try standing Objective: Hemodynamic Response/Aerobic Capacity O2 91-97% 4L NC t/o session HR 70-90s t/o session Rhythm: per tele Relevant cardiac medications reviewed in OMR Asymptomatic t/o session, RN aware Functional Mobility Bed Mobility: Supine to Sit: Supervision initially w/ Moderate assistance to finish getting to EOB Adaptive Equipment: HOB elevated Sit to Supine: Activity does not occur (left in bedside chair) Transfers: Sit to Stand: Minimal assistance, 2 person (w/ rocking for momentum) Stand to Sit: Minimal assistance, 2 person Bed to Chair: Moderate assistance, 2 person (via stand step) Transfer aid: None (given precautions) Transfer barriers: Pain, Balance, Anxiety/fear, Precautions BUE Gait: Activity does not occur (bed > chair stand step only) Stairs: Activity does not occur Balance: Supervision static sitting Contact guard dynamic sitting Minimal assistance, 2 person static standing Moderate assistance, 2 person dynamic standing No LOB w/ mobility Pain: 8-05/23 t/o session Location: BUE Quality: does not qualify Intervention: repositioning, RN aware, pre-medicated by RN, educated on non- medication pain management techniques, rest Limiting Symptoms: Pain, Anxiety/Fear, Precautions, Weakness Other Tests and Measures: Cognition: Level of Consciousness: Alert Orientation Level: Oriented X4 Following Directions: Follows all directions without difficulty Success rate following directions: 100% of the time Patient Behaviors/Mood: Anxious, Sad Memory: Intact Attention to Tasks: Attends to task, Attends to conversation Additional Tests: Declines to wear R splint and L cuff and collar t/o session despite education, encouragement ROM BUE deferred Acapella x10 reps w/ strong productive cough following (use of suction to expectorate sputum) Standardized Tests and Outcome Measures: NT Intervention: Therapeutic activities Functional mobility training Endurance training Energy conservation Patient/Caregiver Education RE: [x]Role of PT [x]PT plan of care [x]Fall risk reduction [x]Discharge recommendations [x]Mobility Recommendations []Other: []Rodeo Clown utilized for session Team Communication: Communicated with [x]RN [x]MD [x]OT ([place]) [x]CM RE: Patient status, d/c recs, mobility recs, pain []Patient discussed at interdisciplinary team rounds. Pt left seated in chair with all needs in reach, PCT at bedside, RN aware Assessment Clinical Impression: Mayra Craft is a 74 y.o. female with a history of past medical history significant for MDD/CHRIS, opioid use disorder in sustained remission, SSS s/p dcICD, HFrEF (ef 40%) 2/2 niCM, moderate MR, NSVT with 10% PVC burden, non-obstructive CAD (CTA 2021). 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 recent hospitalization 08/01-08/10 with SOB felt comboof slight CHF exacerbation and COPDE/PNA mucoid impaction, dced to SNF presented with worsening b/lshoulder pain after fall at SNF 4 days ago found to have L humeral Fx and RUE DVT. Pt is making steady progress as demonstrated by improved mobility, activity tolerance as compared to previous visit. Despite anxiety surrounding falling and trying to stand/ambulate again, pt stood w/ assist x2 person and tx to chair via stand step tx w/ assist x2. SW asked to re-engage w/ pt giventraumatic LUE injury and pt continuing to endorse PTSD/anxiety. Pt continues to function below baseline limited by the primary impairment/activity limitation of impaired activity tolerance which is likely due to pain from ignacio shoulders and recent falls. Pt also continues to decline use of R splint and L cuff and collar despite education, encouragement to wear per orders. At this time, recommend return to rehab to optimize function prior to returning home. Acute PT willcontinue to follow to progress as able while admitted to for medical reasons. Treatment Plan: Pulmonary hygiene, Balance training, Functional mobility training, Interventional ROM, Transfer training, Patient education, Pain management strategies Patient agrees with the above goals and is willing to participate in the rehabilitation program: Yes Time: [id number] Physical Therapist Name: Jemima Jara PT, DPT Physical Therapist Pager: [phone] Physical Therapist License Number: [id number] * Eloy Gomez MD - 08/31/2025 9:30 AM EST HOSPITAL MEDICINE PROGRESS NOTE Patient: Mayra Craft Admit Date: 08/19/2025 LOS: 11 days Primary Care Physician: Vanessa Culver MD Interval Events: Neurology consulted, recommended MRI of right brachial plexus. She has a PPM in place. Subjective: Patient reports that her pain is similar to yesterday. She required one breakthrough IV morphine dose yesterday. There is continued right wrist drop. There is no chest pain or dyspnea. She notes no abdominal pain. There are no fevers or chills. Physical Exam Temp: [97.8 ??F (36.6 ??C)-98.2 ??F (36.8 ??C)] 98 ??F (36.7 ??C) Heart Rate: [63-73] 63 Resp: [16-18] 16 BP: (97-133)/(56-78) 111/78 SpO2: [93 %-100 %] 96 % Stool Assessment Stool Occurrence: 1 Bowel Incontinence: Yes Stool Amount: Small Stool Appearance: Loose Stool Color: Brown Last BM Date: 08/29/25 Stool Amount: Small Stool Appearance: Loose Stool Color: Brown Last BM Date: 08/29/25 0-10 Pain Score : Sleeping (08/31/2025 7:36 AM) Macdonald-Sanford FACES Pain Ratin (08/30/2025 1:24 AM) General: Appears uncomfortable. HEENT: No scleral icterus. No conjunctival injection. Pulmonary: No increased work of breathing, on 4 L NC. Lungs with no wheezing, rales. Cardiovascular: Regular rate and rhythm. No murmurs, gallops, or rubs. Abdominal: Soft, mildly distended, non-tender to palpation. Extremities: No lower extremity edema. Warm and well perfused. MSK: Pt with large area of bruising around left arm (within marked area) and improving with ROM intact at shoulder, limited at elbow due to pain. LUE with improved swelling with compression with cori wrapping. RUE with 2+ pitting edema in the proximal arm. Mild tenderness to palpation over right upper arm with c/d/I incision scar anteriorly + preserved ROM at shoulder, ROM limited over elbow due to pain. R wrist with bruising over R wrist, pain with flexion, improvement on extension--ROM intact though with pain. Neuro: Vision and hearing grossly intact. Face symmetric. Moving all four extremities purposefully. Psych: Alert and oriented. Normal affect. Lines: Hel[place] in place Data: I have reviewed the relevant labs, radiology studies, tracings, medical records, and they are notable for Results for orders placed or performed during the hospital encounter of 08/19/25 (from the past 24 hours) CBC Result Value Ref Range WBC 5.00 4.00 - 10.00 K/uL RBC 2.63 (L) 3.90 - 5.20 M/uL Hemoglobin 7.3 (L) 11.2 - 15.7 g/dL Hematocrit 23.6 (L) 34.0 - 45.0 % MCV 90 82 - 98 fL MCH 27.8 26.0 - 32.0 pg MCHC 30.9 (L) 32.0 - 37.0 g/dL RDW 16.0 (H) 10.5 - 15.5 % RDW-SD 51.7 (H) 35.1 - 46.3 fL Platelet Count 261 150 - 400 K/uL Nucleated RBC 0 <=0 #/100 WBC C-Reactive Protein Result Value Ref Range C-Reactive Protein (CRP) 85.4 (H) 0.0 - 5.0 mg/L Renal Function Panel Result Value Ref Range Sodium 131 (L) 135 - 147 mmol/L Potassium 4.2 3.5 - 5.4 mmol/L Chloride 96 96 - 108 mmol/L Total CO2/Bicarbonate 31 22 - 32 mmol/L Anion Gap 4 4 - 16 mmol/L BUN 16 6 - 20 mg/dL Creatinine, Blood 0.40 0.40 - 1.10 mg/dL Glucose, Blood 114 (H) 70 - 100 mg/dL Calcium 7.8 (L) 8.4 - 10.3 mg/dL Albumin, Blood 2.1 (L) 3.5 - 5.2 g/dL Phosphorus 2.9 2.7 - 4.5 mg/dL Magnesium, Blood 1.9 1.6 - 2.6 mg/dL XR Shoulder 2+ VW Left Result Date: 08/29/2025 EXAMINATION: XR SHOULDER 2+ VW LEFT INDICATION: pt with known L proximal humerus comminuted fracture with significant edema + continued pain, XR for worsening of fracture; TECHNIQUE: Frontal and Grashey view radiographs of the left shoulder. COMPARISON: Radiographs of the left shoulder from 19 August 2025. FINDINGS: Partially-imaged left-sided dual lead cardiac device noted. Again seen is the comminuted and impacted fracture of the left proximal humerus involving the humeral head and surgical neck. Fracture lines remain visible, though with interval callus formation. No evidence of acromioclavicular or glenohumeral joint dislocation. No new fracture detected. Probable diffuse osteopenia. Left lower lung opacity seen on frontal and oblique views. This appears more pronounced than on the [id number] left shoulder radiographs. Recommend further evaluation with dedicated chest x-ray. Surgical sutures noted in the left lung. RECOMMENDATION(S): Chest x-ray. NOTIFICATION: The findingsand recommendations above were discussed with, and acknowledged by Dr. Mayra Craft by Dr. Sunni Pham, using [employer] Secure Chat on 08/28/2025 at 3:24 pm, 2 minutes after discovery of the findings. BY ELECTRONICALLY SIGNING THIS REPORT, I THE ATTENDING PHYSICIAN ATTEST THAT I HAVE REVIEWED THE IMAGES FOR THE ABOVE PROCEDURE(S) AND AGREE WITH THE FINDINGS DOCUMENTED. Sunni Mercado MD, electronically signed on Aug 29 2025 03:22PM XR Humerus 2+ VW Right Result Date: 08/28/2025 EXAMINATION: XR HUMERUS 2+ VW RIGHT INDICATION: c/f R humerus pathology given r wrist drop; TECHNIQUE: Frontal view radiographs of the right humerus. COMPARISON: Radiographs of the right shoulder from 19 August 2025. FINDINGS: Again seen right shoulder arthroplasty hardware without evidence of hardware loosening. There is persistent anterior, medial, and inferior displacement of the right humeral head component relative to the glenoid. No fracture. If there remains clinical concern for nerve compression, please consider MRI for further evaluation. XR Chest 1 VW Portable Result Date: 08/28/2025 EXAMINATION: XR CHEST 1 VW PORTABLE INDICATION: incidentally noted LLL consolidation; TECHNIQUE: Chest portable AP COMPARISON: Multiple prior studies, most recent chest radiograph dated 08/23/2025. Retrocardiac and right basilar opacifications appear grossly similar and are better assessed by therecent chest CT. Diffuse reticular opacities are also better assessed by the previous chest CT, probably representing extensive emphysema. Superimposed inflammation is possible. Otherwise no significant interval change in the appearance of the chest. Kristopher Hickey MD, electronically signed on Aug 28 2025 04:02PM ECG 12 lead Result Date: 08/28/2025 Sinus rhythm with premature atrial depolarizations When compared with ECG of 23-Aug-2025 00:35, No significant change was found Temporary Access Catheter Placement Result Date: 08/27/2025 INDICATION: Inability to obtain or maintain peripheral venous access COMPARISON: None. TECHNIQUE: OPERATORS: Dr. Mckeon, attending interventional radiologist performed the procedure. ANESTHESIA: Local only Fluoro time 15 seconds Radiation Dose: <1 mGY PROCEDURE: PROCEDURE DETAILS: Following the explanation of the risks, benefits and alternatives to the procedure, written informed consent was obtained from the patient. The patient was then brought to the angiography suite and placed supine on the exam table. A pre-procedure time-out was performed per [facility] protocol. The right neck was preppedand draped in the usual sterile fashion. Under continuous ultrasound guidance, the patent right internal jugular vein was compressible and accessed using a micropuncture needle. Permanent ultrasound images were obtained before and after intravenous access, which confirmed vein patency. Subsequentlya Nitinol wire was passed into the IVC using fluoroscopic guidance. The needle was exchanged for a micropuncture sheath. The Nitinol wire was removed and an 0.035 wire was advanced into the IVC. A triple lumen central catheter was advanced over the wire into the superior vena cava with the tip in the cavoatrial junction. All 3 access ports were aspirated, flushed and capped. The catheter was secured to the skin with a 0 silk suture and sterile dressings were applied. Final spot fluoroscopic image demonstrating good alignment of the catheter and no kinking. The patient tolerated the procedure well without immediate complications. FINDINGS: Patent right internal jugular vein. Final fluoroscopic image showing the catheter tip terminating in the distal superior vena cava. Successful placement of a 7 Fr 16 cm triple-lumen temporary central venous catheter via the right internal jugular venous approach. The tip of the catheter terminates in the distal superior vena cava. The catheter is ready for use. Sammi Mckeon MD, electronically signed on Aug 27 2025 01:44PM XR Abdomen Portable Result Date: 08/25/2025 INDICATION: LUQ abdominal pain; TECHNIQUE: Portable supine abdominal radiograph was obtained. COMPARISON: None Nonspecific bowel gas pattern with gas noted throughout nondilated small bowel loops in the midlineand: To the level of rectum. There is a single dilated loop of bowel probably small bowel loop in the left upper quadrant suggestive of focal ileus or could be splenic flexure. Moderate stool burden in the right side of the colon. Suboptimal study for evaluation of free air however no gross pneumoperitoneum. There are degenerative changes in the spine Kate Lugo MD, electronically signed on Aug 25 2025 03:52PM XR Hand 3+ VW Right Result Date: 08/24/2025 EXAMINATION: XR WRIST 3+ VW RIGHT; XR HAND 3+ VW RIGHT INDICATION: pt with fall and continued r wrist and hand pain.; TECHNIQUE: Frontal, oblique, and lateral view radiographs of right hand and wristCOMPARISON: None available. No acute fractures or dislocations are seen. Mild degenerative changes of the first carpometacarpaljoint in setting of osteophytosis. Mild negative ulnar variance. No bone erosion or periostitis. Nosuspicious lytic or sclerotic lesion. No soft tissue calcifications or radiopaque foreign body. Nosignificant carpal bone malalignment. BY ELECTRONICALLY SIGNING THIS REPORT, I THE ATTENDING PHYSICIAN ATTEST THAT I HAVE REVIEWED THE IMAGES FOR THE ABOVE PROCEDURE(S) AND AGREE WITH THE FINDINGS ASDOCUMENTED. Geeta Hummel MD, electronically signed on Aug 24 2025 05:46PM XR Wrist 3+ VW Right Result Date: 08/24/2025 EXAMINATION: XR WRIST 3+ VW RIGHT; XR HAND 3+ VW RIGHT INDICATION: pt with fall and continued r wrist and hand pain.; TECHNIQUE: Frontal, oblique, and lateral view radiographs of right hand and wristCOMPARISON: None available. No acute fractures or dislocations are seen. Mild degenerative changes of the first carpometacarpaljoint in setting of osteophytosis. Mild negative ulnar variance. No bone erosion or periostitis. Nosuspicious lytic or sclerotic lesion. No soft tissue calcifications or radiopaque foreign body. No significant carpal bone malalignment. BY ELECTRONICALLY SIGNING THIS REPORT, I THE ATTENDING PHYSICIAN ATTEST THAT I HAVE REVIEWED THE IMAGES FOR THE ABOVE PROCEDURE(S) AND AGREE WITH THE FINDINGS DOCUMENTED. Geeta Hummel MD, electronically signed on Aug 24 2025 05:46PM ECG 12 lead Result Date: 08/24/2025 Sinus rhythm with premature atrial depolarizations Inferior infarct , age undetermined Abnormal ECGWhen compared with ECG of 21-Aug-2025 22:25, Inferior infarct is now present Chest 1 VW Portable Result Date: 08/23/2025 EXAMINATION: XR CHEST 1 VW PORTABLE INDICATION: Hypoxia, eval pneumonia, fluid overload, pneumothorax; TECHNIQUE: AP chest COMPARISON: Chest radiograph dated 08/19/2025 In comparison to study of August 19, there are similar bibasilar and retrocardiac opacifications, likely representing pneumonia. Similar diffuse increased interstitial opacities may represent underlying mild pulmonary edema and severe emphysema. No pleural effusion or pneumothorax. Cardiac silhouette size is normal. Similar position of the left chest wall pacer device leads. Left proximal humerus fracture is again noted. Guy Callahan MD, electronically signed on Aug 23 2025 07:31AM ECG 12 lead, to be obtained, dyspnea Result Date: 08/22/2025 Sinus rhythm with premature atrial depolarizations Right axis deviation When compared with ECG of 19-Aug-2025 17:25, Questionable change in QRS axis ST no longer elevated in Anterior leads MSK Injection / Aspiration - US Result Date: 08/22/2025 EXAMINATION: IR MSK INJECTION / ASPIRATION - US INDICATION: continued swelling of R shoulder, elevated CRP; TECHNIQUE: The risks, benefits, and alternatives were explained to the patient and written informed consent obtained. A pre- procedure timeout confirmed three patient identifiers. Under ultrasound guidance, an appropriate spot was marked. The area was prepared and draped in standard sterile fashion. 4 cc of 1% Lidocaine was used to achieve local anesthesia. Under intermittent ultrasound guidance, a 22-gauge spinal needle was advanced into the posterior aspect of the shoulder joint. Aspiration trail resulted in dry tap. Lavage of the joint was performed with 2-3 CC of joint reddish fluid was obtained. The needle was removed, hemostasis achieved, and a sterile bandage applied. The patient tolerated the procedure well and left the department in good condition. There were no immediate complications. COMPARISON: None FINDINGS: Again seen is cortical irregularity in keeping with known p roximal left humeral fracture. 1. Imaging Findings - as above. 2. Procedure - Uneventful ultrasound-guided lavage with fluid aspiration, which was sent for microbiology. I Dr. Duran personally supervised the Resident/Fellowduring the landrum components of the above procedure and I have reviewed and agree with the Resident/Fellow findings/dictation. BY ELECTRONICALLY SIGNING THIS REPORT, I THE ATTENDING PHYSICIAN ATTEST THAT I HAVE REVIEWED THE IMAGES FOR THE ABOVE PROCEDURE(S) AND AGREE WITH THE FINDINGS DOCUMENTED. Adarsh Duran MD, electronically signed on Aug 22 2025 03:47PM CT Shoulder Left Without Contrast Result Date: 08/21/2025 EXAMINATION: CT SHOULDER LEFT WO CONTRAST INDICATION: shoulder pain; TECHNIQUE: MDCT images of the left shoulder were obtained without contrast. Coronal and sagittal reformats were obtained. DOSE: Acquisition sequence: 1) Spiral Acquisition 5.0 s, 23.0 cm; CTDIvol = 13.3 mGy (Body) DLP = 306.2 mGy-cm Total DLP (Body) = 306 mGy-cm COMPARISON: Radiograph of left shoulder dated August [address] pulmonary angiography dated August 19. FINDINGS: BONES: Mild diffuse osseous demineralization. There is a complete transverse comminuted displaced fracture involving the neck of the humerus. The fracture line is seen extending into inferior articular surface of the humeral head as well as the greater t uberosity. There is almost half shaft width anterior displacement of the distal fracture fragment with mild superior migration (approximately 1.9 cm) and impaction. The glenohumeral alignment is well-maintained. No suspicious focal osseous lesion is seen. Note is made of compression fracture of indeterminate age T1 vertebral body and possible superior endplate compression of T2. Visualized ribs do not show any overt fracture, however the evaluation is limited by subtle motion artifacts. SOFT TISSUES: Mild soft tissue edema surrounding the shoulder joint. No localized fluid collection or any hematoma formation. No effusion or evidence of tendon entrapment. No disproportionate muscle atrophy.OTHER: Note is made of severe centrilobular emphysema in visualized lungs. Consolidative opacity inthe left lower lobe is partially visualized. Few nodular opacity in left upper lung. 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 These findings are better evaluated in recent CT pulmonary angiography 1. Complete transverse comminuted displaced, impacted fracture involving neck of the humerus extending into inferior articular surface humeral head and greater tuberosity 2. Compression fracture of indeterminate age T1 vertebral body and possible superior endplate compression of T2. 3. Consolidative opacity in the left lower lobe is partially visualized. Few nodular opacity in left upper lung. These findings are better evaluated in recent CT pulmonary angiography. If clinically indicated consider CT chest follow-up in 3 months. BY ELECTRONICALLY SIGNING THIS REPORT, I THE ATTENDING PHYSICIAN ATTEST THAT I HAVE REVIEWED THE IMAGES FOR THE ABOVE PROCEDURE(S) AND AGREE WITH THE FINDINGS DOCUMENTED. Guy Hummel MD, electronically signed on Aug 21 2025 10:44AM ECG 12 lead Result Date: 08/21/2025 Sinus rhythm with premature atrial depolarizations Minimal voltage criteria for LVH, may be normal variant ( Walker product ) Nonspecific T wave abnormality Inferior GA - indeterminate age Abnormal ECG When compared with ECG of 07-Aug-2025 13:31, premature ventricular depolarizations are no longerpresent premature atrial depolarizations are now present ST elevation now present in Anterior leads Shoulder 2+ Vw Left Result Date: 08/20/2025 INDICATION: s/p fall, surgery, pain, swelling ?fx; TECHNIQUE: Three views of the left shoulder COMPARISON: None. FINDINGS: A comminuted and impacted fracture of the left proximal humerus involves thehumeral head and surgical neck. No dislocation. Glenohumeral joint is preserved. Mild joint space narrowing of the acromioclavicular joint. Imaged left lung demonstrates chain sutures from prior leftupper segmentectomy. Generator pack for a pacer is seen in the left upper chest wall. Comminuted and impacted left proximal humeral fracture involving the humeral head and surgical neck. No dislocation. Akanksha Ríos MD, electronically signed on Aug 20 2025 11:03AM US Upper Extremity Venous Bilateral Result Date: 08/20/2025 EXAMINATION: US UPPER EXTREMITY VENOUS BILATERAL INDICATION: Edema, pain/tenderness TECHNIQUE: Greyscale and Doppler evaluation was performed on the bilateral upper extremity veins. COMPARISON: None. FINDINGS: There is normal flow with respiratory variation in the bilateral subclavian veins. The right internal jugular vein is patent, shows normal color flow, spectral doppler, and compressibility. The right brachial veins are patent and show compressibility. The right axillary vein is not compressible and does not show normal [id number] color flow, consistent with nonocclusive thrombus in the right axillary vein. The rest of the exam was not performed as the patient was unable to toleratethe exam due to pain. 1. Nonocclusive deep vein thrombus of the right axillary vein. 2. This study only assessed bilateral subclavian, right internal jugular, right brachial, and right axillary veins. The rest of upper extremities were not assessed as the patient was unable to tolerate the exam due to pain. NOTIFICATION: The findings were discussed with, and acknowledged by Dr. Albin Puentes by Dr. Sherry Valladares, using [employer] Secure Chat on 08/20/2025 at 9:53 am, 3 minutes after discovery of the findings. BY ELECTRONICALLY SIGNING THIS REPORT, I THE ATTENDING PHYSICIAN ATTEST THAT I HAVE REVIEWED THE IMAGES FOR THE ABOVE PROCEDURE(S) AND AGREE WITH THE FINDINGS DOCUMENTED. Sherry Gomez MD, electronically signed on Aug 20 2025 10:38AM XR Chest 1 Vw Portable Result Date: 08/19/2025 EXAMINATION: XR CHEST 1 VW PORTABLE INDICATION: sob, cough /pna; TECHNIQUE: Semi-upright AP view ofthe chest COMPARISON: CTA chest 19 August 2025 at 18:44 and 07 August 2025, chest radiograph 07 August 2025 FINDINGS: Left-sided pacer with leads in the right atrium and right ventricle, unchanged.Mild cardiomegaly is similar. Mediastinal and hilar contours are unchanged. No pulmonary edema. Diffuse increased interstitial opacities are again noted and related to underlying severe emphysema. Patchy airspace opacities are again noted in the lower lobes which is concerning for pneumonia. No pleural effusion or pneumothorax. No acute osseous abnormalities. Partially imaged comminuted left proximal humeral fracture. Status post right shoulder arthroplasty with the humeral head component demonstrating anterior dislocation. Contrast from recent CT examination is seen in the renal collectingsystems bilaterally. Patchy bilateral lower lobe opacities suggesting pneumonia as seen on prior CT. Partially imaged comminuted left proximal humeral fracture and anteriorly dislocated humeral component of a right shoulder arthroplasty. Akanksha Ríos MD, electronically signed on Aug 19 2025 10:25PM XR Shoulder 2+ Vw Right Result Date: 08/19/2025 INDICATION: s/p fall, surgery, pain, swelling ?fx; TECHNIQUE: Right shoulder, three views COMPARISON: CT chest 07 August 2025 and right shoulder radiographs 14 August 2025 FINDINGS: Status post right shoulder arthroplasty with persistent anterior, medial and inferior displacement of the humeral head component relative to the glenoid. No acute fracture. Acromioclavicular joint demonstrates milddegenerative changes. Fragmentation of the acromion appears chronic. No periarticular soft tissue calcifications. Severe emphysema is noted in the imaged right lung. 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 No acute fracture. Akanksha Ríos MD, electronically signed on Aug 19 2025 10:25PM XR Elbow 3+ VW Right Result Date: 08/19/2025 INDICATION: elbow pain; TECHNIQUE: AP and lateral views of the elbows bilaterally COMPARISON: None.FINDINGS: On the left, no acute fracture or dislocation. No elbow joint effusion. Mild degenerativechanges of the humeroulnar joint. No concerning lytic or sclerotic osseous abnormality. No embeddedradiopaque foreign body or soft tissue calcification. On the right, no acute fracture or dislocation. No elbow joint effusion. Mild degenerative changes of the ulnohumeral joint. No suspicious lytic or sclerotic osseous abnormality. Mild soft tissue irregularity is seen along the dorsal aspect of th e elbow. No acute fracture or dislocation involving either elbow. Akanksha Ríos MD, electronically signed on Aug 19 2025 10:24PM XR Elbow 3+ VW Left Result Date: 08/19/2025 INDICATION: elbow pain; TECHNIQUE: AP and lateral views of the elbows bilaterally COMPARISON: None.FINDINGS: On the left, no acute fracture or dislocation. No elbow joint effusion. Mild degenerativechanges of the humeroulnar joint. No concerning lytic or sclerotic osseous abnormality. No embeddedradiopaque foreign body or soft tissue calcification. On the right, no acute fracture or dislocation. No elbow joint effusion. Mild degenerative changes of the ulnohumeral joint. No suspicious lytic or sclerotic osseous abnormality. Mild soft tissue irregularity is seen along the dorsal aspect of th e elbow. No acute fracture or dislocation involving either elbow. Akanksha Ríos MD, electronically signed on Aug 19 2025 10:24PM CT Angiogram Chest PE : Arteriogram Addendum Date: 08/19/2025 ADDENDUM The patient is status post right shoulder arthroplasty (not reverse shoulder arthroplasty). The anterior dislocation of the humeral head component relative to the glenoid appears similar compared to the prior CTA chest from August 07, 2025. Akanksha Ríos MD, electronically signed on [id number] 08:47PM Result Date: 08/19/2025 EXAMINATION: CTA CHEST WITH CONTRAST INDICATION: pt w/ sob, chest pain, tachycardia; TECHNIQUE: Axial multidetector CT images were obtained through the thorax after the uneventful administration of intravenous contrast including reformatted coronal, sagittal, and oblique and axial maximal intensityprojection (MIP) images. DOSE: Acquisition sequence: 1) Stationary Acquisition 0.5 s, 0.5 cm; CTDIvol = 3.0 mGy (Body) DLP = 1.5 mGy-cm 2) Stationary Acquisition 2.0 s, 0.5 cm; CTDIvol = 12.1 mGy (Body) DLP = 6.1 mGy-cm 3) Spiral Acquisition 4.1 s, 30.6 cm; CTDIvol = 8.2 mGy (Body) DLP = 252.0 mGy-cm Total DLP (Body) = 260 mGy- cm COMPARISON: CTA chest 07 August 2025 FINDINGS: VASCULATURE: Main pulmonary artery is borderline enlarged at 3.1 cm. No filling defects to the subsegmental level to indicate a pulmonary embolism. Ascending aorta demonstrates fusiform dilatation to 4.2 cm and the descending thoracic aorta is dilated up to 3.4 cm, as seen previously. No aortic dissection or intramural hematoma. HEART: Mild cardiomegaly. Pacing leads terminate within the right atrium and right ventr icle. Moderate coronary artery calcifications. No significant pericardial effusion. AXILLA, MARCELL, AND MEDIASTINUM: No lymphadenopathy or mass. The esophagus is patulous which can be seen with esophageal dysmotility. PLEURAL SPACES: No pleural effusion or pneumothorax. LUNGS: Heterogeneous consolidative opacities in both lower lobes can be seen with pneumonia. Severe centrilobular emphysema is again demonstrated. AIRWAYS: Airway wall thickening suggesting inflammation is noted. Central airways are patent to the segmental bronchial level. BASE OF NECK: 5 mm rim calcified thyroid nodule is notedwhich does not require specific sonographic follow-up. ABDOMEN: Visualized upper abdomen unremarkable. BONES: A comminuted left proximal humeral fracture is incompletely imaged. Status post right reverse shoulder arthroplasty with anterior subluxation/dislocation of the hardware relative to the glenoid. A subacute fracture of the sternum is noted (602:74). Compression deformities of the T1 and T11 vertebral bodies are unchanged. SOFT TISSUES: Soft tissue stranding is seen within the left shoulder secondary to the humeral fracture. 1. No pulmonary embolism or acute aortic pathology. 2. Severe emphysema with mild dilatation of thepulmonary artery measuring up to 3.1 cm, unchanged, which can be seen with pulmonary arterial hypertension. 3. Mild dilatation of the ascending and descending thoracic aorta, unchanged. See recommendations below. 4. Heterogeneous consolidative opacities in both lower lobes may reflect pneumonia. 5.Acute, comminuted left proximal humeral fracture. 6. Status post reverse right shoulder arthroplasty with anterior subluxation/dislocation of the humeral component relative to the glenoid. 7. Chroniccompression deformities of T1 and T11 vertebral bodies. RECOMMENDATION(S): Follow-Up Imaging: Thoracic aorta 4.0 - 4.4 cm in diameter - if stable findings at 12 months or interval increase in diameter is < 3 mm, consider follow-up with ECG-gated chest CTA in 2 years. Management recommendations for follow-up of thoracic aortic aneurysm are based on existing literature and multidisciplinary consensus document of our institution, including Cardiology, Vascular Surgery, and Cardiac Surgery and it is specifically designed for this program. Siminelbachana EM, et al. ACC/AHA Guideline for the Diagnosis and Management of Aortic Disease: A Report of the [place] [employer]/[place] College ofCardiology Joint Committee on Clinical Practice Guidelines. Circulation 2022; 146:h237-j500. Erbel R, et al. ESC Guidelines on the diagnosis of thoracic and abdominal aorta of the adult. Eur Heart J 2014;35:8025-0167. Cindy EL, et al. The Society of Vascular Surgery practice guidelines on the care of patients with an abdominal aortic aneurysm. J Vasc Surg 2018;67:2-77. Joseph Dunham, et al. Management of Descending Thoracic Aortic Disease: Clinical Practice Guidelines of the Society of Vascular Surgery. Eur J Vasc Endovasc Surg 2017;53:4-52. Akanksha Ríos MD, electronically signed on Aug 19 2025 07:13PM US Lower Extremity Venous Left Result Date: 08/19/2025 EXAMINATION: US LOWER EXTREMITY VENOUS LEFT INDICATION: Left lower extremity pain and edema. TECHNIQUE: Mullen scale, color, and spectral Doppler evaluation was performed on the left lower extremity veins. The patient could not tolerate evaluation of the calf veins. COMPARISON: None. FINDINGS: There is normal compressibility, color flow, and spectral doppler of the left common femoral, femoral, andpopliteal veins. The patient was unable to tolerate evaluation of the calf veins. There is normal respiratory variation in the common femoral veins bilaterally. No evidence of medial popliteal fossa ([place]) cyst. Unable to evaluate the calf veins, but there is no evidence of deep venous thrombosis in the other left lower extremity veins. BY ELECTRONICALLY SIGNING THIS REPORT, I THE ATTENDING PHYSICIAN ATTEST THAT I HAVE REVIEWED THE IMAGES FOR THE ABOVE PROCEDURE(S) AND AGREE WITH THE FINDINGS DOCUMENTED. Geo Ríos MD, electronically signed on Aug 19 2025 07:17PM CT Cervical Spine Without Contrast Result Date: 08/19/2025 EXAMINATION: CT CERVICAL SPINE WO CONTRAST INDICATION: s/p fall; TECHNIQUE: Contiguous axial imagesobtained through the cervical spine without intravenous contrast. Coronal and sagittal reformats were reviewed. DOSE: Acquisition sequence: 1) Sequenced Acquisition 18.0 s, 18.0 cm; CTDIvol = 50.2 mGy (Head) DLP = 903.1 mGy-cm 2) Spiral Acquisition 5.7 s, 21.2 cm; CTDIvol = 24.5 mGy (Body) DLP = 518.9 mGy-cm Total DLP (Body) = 519 mGy-cm Total DLP (Head) = 903 mGy-cm Note: This radiation dose report was copied from accession #[id number] (CT HEAD WO CONTRAST) COMPARISON: CT chest 07 August 2025 FINDINGS: Reversal of the normal cervical lordosis is demonstrated. No traumatic malalignment. R otation of C1 on C2 is likely due to head positioning within the scanner. No definite acute fractures are identified. There is moderate anterior height loss of the T1 vertebral body, unchanged from prior CT from July 2025. [id number] multilevel degenerative changes with intervertebral disc space narrowing, endplate sclerosis, and osteophyte formation. No high-grade central canal stenosis. Mild multilevel neural foraminal stenosis without high-grade narrowing.There is no prevertebral edema. Stranding in the left supraclavicular soft tissues relates to a left proximal humeral fractureas seen on the biochemistry teacher views. Severe emphysema is noted in the left lung apex. Thyroid gland demonstra kasi a rim calcified 5 mm nodule on the right which does not require dedicated imaging follow-up. 1. No acute cervical spine fracture or traumatic malalignment. 2. Left proximal humeral fracture imaged on the biochemistry teacher view. 3. Chronic compression deformity of the T1 vertebral body. Akanksha Ríos MD, electronically signed on Aug 19 2025 06:57PM CT Head Without Contrast Result Date: 08/19/2025 EXAMINATION: CT HEAD WO CONTRAST [id number] CT BID-HEAD INDICATION: s/p fall; TECHNIQUE: Contiguous axial images of the brain were obtained without contrast. Coronal and sagittal reformations as well as bone algorithm reconstructions were provided and reviewed. DOSE: Acquisition sequence: 1) Sequenced Acquisition 18.0 s, 18.0 cm; CTDIvol = 50.2 mGy (Head) DLP = 903.1 mGy-cm 2) Spiral Acquisition 5.7 s, 21.2 cm; CTDIvol = 24.5 mGy (Body) DLP = 518.9 mGy-cm Total DLP (Body) = 519 mGy-cm Total DLP (Head) = 903 mGy-cm COMPARISON: None. FINDINGS: There is no evidence of fracture, acute large territorial infarction, hemorrhage, edema, or mass. There is prominence of the ventricles and sulci suggestive of involutional changes. Moderate periventricular and subcortical white matter hypodensitiesare nonspecific, but likely reflect the sequela of chronic microvascular infarction. The visualizedportion of the paranasal sinuses, mastoid air cells, and middle ear cavities are clear. Patient is status post bilateral lens replacements. 1. No acute intracranial abnormality. Akanksha Ríos MD, electronically signed on Aug 19 2025 06:49PM XR Shoulder 2+ VW Right Result Date: 08/14/2025 EXAMINATION: XR SHOULDER 2+ VW RIGHT INDICATION: R Shoulder Pain; TECHNIQUE: Three views right shoulder COMPARISON: 01 August 2025 Redemonstrated reverse right shoulder arthroplasty with grossly intact hardware and maintained alignment. There is no acute fracture.. Slight interval decrease in streaky opacities in the right upperlung zone. Mild degenerative changes at the glenohumeral joint.. Kate Lugo MD, electronically signed on Aug 14 2025 02:56PM CT Angiogram Chest PE : Arteriogram Result Date: 08/08/2025 EXAMINATION: CTA CHEST WITH CONTRAST INDICATION: patient with new 02; TECHNIQUE: Axial multidetector CT images were obtained through the thorax after the uneventful administration of intravenous contrast including reformatted coronal, sagittal, and oblique and axial maximal intensity projection (MIP) images. DOSE: Acquisition sequence: 1) Sequenced Acquisition 0.5 s, 0.2 cm; CTDIvol = 7.2 mGy (Body) DLP = 1.4 mGy-cm 2) Stationary Acquisition 3.7 s, 0.2 cm; CTDIvol = 61.8 mGy (Body) DLP = 12.4 mGy-cm 3) Spiral Acquisition 5.4 s, 35.0 cm; CTDIvol = 12.6 mGy (Body) DLP = 431.5 mGy-cm Total DLP (Body) = 445 mGy-cm COMPARISON: Outside CT chest available in the [facility] 28 May 2025 FINDINGS: VASCULATURE: No pulmonary embolism to the subsegmental level. The ascending thoracic aorta is mildly dilated measuring up to 4.1 cm. There are mild atherosclerotic calcifications of the thoracic aorta. HEART: Normal heart size. Mild atheromatous coronary calcifications. No significant pericardial effusion. AXILLA, MARCELL, AND MEDIASTINUM: No lymphadenopathy or mass. Mildly dilated air- filled and patulous esophagus predominantly in the upper and midportion. PLEURAL SPACES: No pleural effusion or pneumothorax. LUNGS: Postsurgical changes from left upper posterior segmentectomy. Diffuse emphysematouschanges noted in bilateral lung villavicencio in the form of emphysematous bullae, more so in the bilateral upper lobes. Few patchy areas of ground-glass in noted in the apical segment of bilateral upper lobe,likely representing mild mosaic attenuation related to regional differences in ventilation. Fibroatelectatic changes noted involving the most of the right upper lobe, posterior and lateral segmentof right lower lobe and apicoposterior segment of left upper lobe. There is a 2.3 by 1.5 cm irregular subpleural consolidative opacity in the right lung base and an additional 16 mm subpleural nodular opacity in the medial right lung base. AIRWAYS: Patent central airways. There are filling defects noted in the anterior aspect of the left mainstem bronchus, likely secretions. Bilateral lower lobe p redominant diffuse bronchial wall thickening most pronounced in the right lower lobe with scatteredareas of mucous plugging. BASE OF NECK: Limited evaluation due to metallic artifacts from processesin right humerus, grossly normal. Lines and tubes: Trans subclavian atrial ventricular pacer leads continuous from left pectoral generator flow expected course. ABDOMEN: The study is not tailored for subdiaphragmatic evaluation. Partially imaged small hepatic cyst. Partially imaged scattered calcifications in the pancreas likely sequela of chronic pancreatitis BONES: Reduced height T1 and T10 vertebral body noted, likely compression fracture. Visualized spine shows degenerative changes in the form of osteophytes. Mild scoliosis with convexity towards right side. SOFT TISSUES: Unremarkable. No evidence of acute pulmonary embolism or aortic abnormality. Bilateral lower lobe predominant diffuse bronchial wall thickening most pronounced in the right lower lobe with areas of mucoid impaction. Subpleural nodular consolidative opacities in the right lung base, likely infectious or inflammatory etiology possibly related to aspiration. Stable postsurgical changes left upper lobe. Mildly dilated air-filled and patulous esophagus, may be related to reflux/dysmotility. Other stable findings BY ELECTRONICALLY SIGNING THIS REPORT, I THE ATTENDING PHYSICIAN ATTEST THAT I HAVE REVIEWED THE IMAGES FOR THE ABOVE PROCEDURE(S) AND AGREE WITH THE FINDINGS DOCUMENTED. Noble Clements MD , Kate Lugo MD, electronically signed on Aug 08 2025 11:37PM US Upper Extremity Venous Right Result Date: 08/08/2025 EXAMINATION: US UPPER EXTREMITY VENOUS RIGHT INDICATION: Right upper extremity edema. TECHNIQUE: Mullen scale and Doppler evaluation was performed on the right upper extremity veins. COMPARISON: None. FINDINGS: There is normal flow with respiratory variation in the bilateral subclavian veins. The right internal jugular, axillary, and brachial veins are patent, show normal color flow, spectral doppler, and compressibility. The right basilic, and cephalic veins are patent, compressible and show normal color flow. No evidence of deep vein thrombosis in the right upper extremity. BY ELECTRONICALLY SIGNING THIS REPORT, I THE ATTENDING PHYSICIAN ATTEST THAT I HAVE REVIEWED THE IMAGES FOR THE ABOVE PROCEDURE(S) AND AGREE WITH THE FINDINGS DOCUMENTED. Shivani Mcelroy MD , David Duran MD, electronicallysigned on Aug 08 2025 05:11PM XR Chest 1 VW Result Date: 08/08/2025 EXAMINATION: XR CHEST 1 VW INDICATION: increased 02 post op; increased 02 post op; TECHNIQUE: AP portable chest. COMPARISON: 06 August 2025 chest radiograph Since 06 August 2025 chest radiograph, stable nonspecific interstitial opacities, most notable inthe right upper lung. These opacities may represent pneumonia in the appropriate clinical context, although they may also represent chronic emphysematous changes or other chronic disease. Recommend CT chest with contrast for further evaluation. No significant pneumothorax. No significant pleural abnormality. Mildly increased retrocardiac opacity may be minimal atelectasis. Unremarkable cardiomediastinal silhouette. Monitoring and support devices are unchanged. Multiple serpiginous opacities distributed throughout the view of the hemithorax are likely outside of the patient. RECOMMENDATION(S):CT chest with contrast NOTIFICATION: The findings were discussed with, and acknowledged by Ching Martin by Dr. Cristopher Perry, using [employer] Secure Chat on 08/07/2025 at 3:01 pm, 5 minutes after discovery of the findings. BY ELECTRONICALLY SIGNING THIS REPORT, I THE ATTENDING PHYSICIAN ATTEST THAT I HAVE REVIEWED THE IMAGES FOR THE ABOVE PROCEDURE(S) AND AGREE WITH THE FINDINGS DOCUMENTED. Duran Chaudhari MD, electronically signed on Aug 08 2025 09:02AM ECG 12 lead Result Date: 08/07/2025 Sinus rhythm with frequent premature ventricular depolarizations and atrial paced complexes Inferior infarct , age undetermined Abnormal ECG When compared with ECG of 06-Jul-2025 09:09, Inferior infarct is now present Chest 1 VW Portable Result Date: 08/06/2025 EXAMINATION: XR CHEST 1 VW PORTABLE INDICATION: 74F history of emphysema now with shortness of breath despite nebulizers; There are no prior chest radiographs. The combination of severe emphysema and moderate interstitialpulmonary abnormality could all be smoking related. However without prior chest radiographs I can not tell if the interstitial abnormality is an acute problem such as mild pulmonary edema and perhapseven concurrent right upper lobe pneumonia. Any prior chest radiographs performed elsewhere should be obtained for [id number] comparison. Heart size is normal. No appreciable pleural abnormality ispresent. Trans subclavian atrial ventricular pacer leads continuous from the left pectoral generator follow expected courses. Romel Glynn MD, electronically signed on Aug 06 2025 09:04AM XR Shoulder AP Right Portable Result Date: 08/01/2025 EXAMINATION: XR SHOULDER AP RIGHT PORTABLE INDICATION: post op revision right shoulder; COMPARISON:31 July 2025 FINDINGS: Interval right-sided reverse glenohumeral arthroplasty revision. No fracture seen. Right upper lobe infiltrates raise possibility of pneumonia. Imaging follow-up recommended. Miles Ortiz MD, electronically signed on Aug 01 2025 06:20PM Assessment and Plan: 74 y.o. 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 S/p R shoulder IR aspiration 08/22 with no culture growth. Patient currently inpatientwith continued pain control. PLAN # Pain control # History of Opioid Use Disorder, on suboxone Pt with a history of opioid use disorder in setting of opioids for pancreatitis, recently started on suboxone (May). Requiring high amounts of opioids in this setting given her humerus fractureand post-R shoulder hemiarthroplasty. - Continue low dose suboxone, increased to TID on 08/27 per chronic pain recommendations - Started Lyrica 75 mg BID 08/26 - Chronic pain consulted, appreciate recommendations: S/p Morphine SATURATION DIVER 08/22-08/28 Switched to Morphine 60 mg PO Q4H PRN + Morphine IV, per their last note, switched to PO oxycodone 10 mg PO q4h PRN Added on methocarbamol 500 mg QID on 08/27 # L proximal humerus comminuted transverse fracture s/p fall # Significant LUE edema Pt with a mechanical fall after misjudging where the toilet seat is and falling onto her L shoulder. Given persistent pain, presented to the ED. CT scan of L humerus showed acceptable alignment amenable to non-operative treatment with immobilization in a sling; however, pt unable to tolerate sling consistently with continued pain. Repeat LUE XR with interval callus formation and no new dislocation or fracture. - Ortho following, will plan for 1-2 week follow-up with L shoulder X-Ray LUE wrapped for compression due to edema with distal pulse, sensation, and motion checks every shift Re-engaged on 08/28 given continued pain, and significant swelling - Activity restrictions: can come out of the sling for gentle pendulum range of motion. She may usethe left upper extremity for light activity daily living but no heavy lifting more than 5 pounds (coffee cup weight bearing) - Pain control, see #Pain control as above - Appreciate OT evaluation # C/F R Wrist Drop Pt with R wrist pain and difficulty with voluntary extension. Ortho examined on 08/28 and not concerned about septic wrist, but are concerned for possible nerve impingement. - Follow-up R humerus XR - Neurology consult, obtaining MRI right brachial plexus # R shoulder swelling/pain, c/f R shoulder septic arthritis # Chronic R rotator cuff arthropathy s/p R total shoulder arthroplasty 07/11/25, conversion to R shoulder hemiarthroplasty with glenoid and humeral implant on 08/01/25 # Chronic right shoulder dislocation Pt with increased R shoulder pain and swelling post-surgery on 08/01 w/concern for possible septic joint w/CRP of 293. Initially given antibiotics, but d/c'ed for IR procedure on 08/20 to increase yield of IR tap on 08/22. Joint cultures NGTD. X ray showing chronic anterior dislocation of the humeral head relative to the glenoid, ortho reviewed and no acute intervention required, and will follow-up OP (Dr. Goins). - S/p vanc/cefepime on 08/19 - See #Pain control as above # Acute on chronic hypoxic respiratory failure (bl 4L NC) # C/f HAP # Leukocytosis, improved # Consolidative opacities in both lower lobes (from CT chest 08/19) # COPD without exacerbation Pt with noted consolidative opacities in both lower lobes from CT chest, initially w/o respiratory symptoms and baseline 4L NC. However, pt developed increased O2 requirements overnight, likely positional or 2/2 mucoid impaction; however, CXR still with evidence of PNA. Given pt was at rehab prior to current admission, treated recently for PNA with bactrim (08/01-08/10), and significant underlying lung disease will plan to treat for HAP. On 08/25, pt lost IV access and her IV antibiotics were transitioned to PO linezolid + levofloxacin. Overall, given pt's clinical stability very low concern for true MRSA HAP despite + MRSA swab, thus will plan to complete course of HAP coverage with Levofloxacin. - Vanc/Cefepime 08/23 - 08/25, Linezolid 08/26, Levofloxacin 08/26 - 08/29 - ANALYTICAL DATA MINER consultation appreciated, ok for regular diet - Continue home Dulera + Spiriva # Moderate hyponatremia, improving Pt with Na of 125 08/25. Overall most concerned for hypovolemic hyponatremia vs tea and toast givenpt unable to feed herself consistently. Of note, patient also getting vancomycin in Dextrose which could be contributing. Last diuretic dose on 08/22. Urine studies consistent with ADH being on givenUrine osms > 200. Urine Na is > 20, FeUrea < 55%. With IVF trial, Na increased, consistentwith likely low EABV though if pt does have SIADH it is likely in setting of uncontrolled pain. - 1L LR fluid challenge w/improvement in Na this AM - Continue to monitor Na # Urinary retention Pt with urinary retention this admission. Think that it is likely multifactorial, likely related tosome underlying pelvic floor dysfunction (pt was having trouble urinating prior to this hospitalization) + constipation from opioid use/decreased hydration + immobility. UA w/o evidence of infection. - Straight cath x4 - Helton placed overnight 08/25 - 08/26 - TOV attempted on 08/29, unsuccessful; Helton replaced # Access Pt with very difficult upper extremity access given RUE DVT + L humerus proximal fracture and resulting edema. Given need for SATURATION DIVER + other intermittent IV medication needs, including electrolyte repletion + frequent lab draws, will pursue central line placement as PICC/midline are not options. - IR consult for temp access to be done on 08/27 # New R axillary vein DVT Pt with worsening R arm pain post-fall on L shoulder, w/increased swelling over right shoulder and lower arm. She was found on admission to have a new R axillary vein DVT. - Hep gtt started 08/20. Does not need to hold for IR drain of R shoulder. - Switched to apixaban on 08/25 # Constipation -Senna/miralax scheduled + bisacodyl suppository PRN CHRONIC CONDITIONS # Chronic HFrEF Nt-proBNP was normal 125 on admission w/no signs/symptoms of volume overload. - on home lasix 20mg MWF, restart 08/22 due to initial hypotension in ED (improved with 1L NS) - was holding entresto given hypotension, resumed 08/21 - daily weights, strict I&O # SSS s/p dcICD # NSVT PVC burden of 10% on prior Zio. - change metop succ 12.5 bid -> metop tart 12.5 bid given hypotension on arrival, now currently low 100s # Chronic iron deficiency anemia - baseline hb 9-10s - iron low on 08/03, ferritin 101. - continue po iron # Moderate malnutrition has lost >30lbs over last 6 months d/t poor appetite. Hypocalcemia corrected to ~9 w/albumin. - multivitamins, ensure tid, nutrition consult. Need help with food due to b/l arm pain # Hypothyroidism - levothyroxine 50 # Anxiety/depression - ativan 0.5 bid -> changed to BID PRN due to high dose opioid use, c/h paroxetine 20 # GERD - omeprazole # HLD - lipitor. # Nonobstructive CAD - asa 81, stop while on therapeutic AC for now Core Measures Nutrition: Oral. Hydration: Oral. Functional status: Out of bed to chair with assist. Bowel Function: Constipated. Lines/Tubes/Drains: Peripheral IV. VTE prophylaxis: Therapeutic anticoagulation. Living Situation: lives alone. Though recently coming from rehab. PAML Status: The preadmission medication list is ACCURATE and COMPLETE.. Anticipated Disposition: Acute rehabilitation vs SNF. Anticipated Length of Stay: 4-5 days. Advanced Care Planning: Full Code. Contacts/HCP/Surrogate: Extended Emergency Contact Information Primary Emergency Contact: Ashanti Green Address: [address] [place] [address] Mobile Relation: Daughter Secondary Emergency Contact: Rory Craft Address: [address] [place] [address] [facility] Mobile Relation: Son E/M Services: I spent 50 minutes in this clinical encounter reviewing the medical record, seeing and examining the patient, placing orders, writing notes, performing signout, and communicating with the applicable medical and nursing teams. Eloy Gomez MD Attending Physician Section of Hospital Medicine [facility] Complexity Bundle Hyponatremia (present on admission) : Labs repeated - Sodium of 130 on 08/27/2025 Anemia secondary to chronic disease and inflammation (present on admission) : Labs repeated - Hemoglobin of 7.3 on 08/31/2025 Moderate Chronic Malnutrition (present on admission) : Assessed - Severity based on ASPEN criteria as documented by the cad manager and is ordered for vitamin/mineral supplementation * Ciarra Velasco, OT - 08/30/2025 4:56 PM EST OCCUPATIONAL THERAPY PROGRESS NOTE Rehabilitation Services - Inpatient Occupational Therapy Level of Care: Floor Interdisciplinary Recommendations OT Discharge rec: Short-term Rehab Movement Precautions: Bracing/Orthoses, ROM (RUE sling for comfort, LUE sling at all times, may remove briefly for gentle pendulums and for elbow/wrist/digit ROM) WB Status: Extremity Weight Bearing Status: Left Upper Extremity, Right Upper Extremity LUE Weight Bearing : (CCWB (<5 lbs) Okay to remove sling for for gentle pendulums and elbow, wrist, hand ROM) RUE Weight Bearing : NWB Activity and Mobility Recommendations: [x]Patient is at high risk for deconditioning. Please maximize independence in ADLs and encourage frequent mobility including: Lift for all mobility including transfers to chair 3x/day [x]Patient is at risk for pressure injury. Please limit sitting time to one hour on standard air cushion given patient???s inability to effectively reposition in chair. [x]Patient is at risk for falls. Please use chair alarm when out of bed. [x]Patient is at risk for delirium. Please consider implementing strategies to reduce risk including: OOB to chair 3 day for all meals Familiar pictures and items within view News or nonverbal music on during daytime Lights on during day with shades UP Frequent Reorientation to clock, calendar, and window Encourage participation with ADLs Encourage family presence at bedside *For questions please check the patient???s care team for the most updated OT contact information [x]Updated medical status including labs, radiology, procedures and medications since previous visit reviewed SUBJECTIVE: Can you write in my chart if I need to take this off I can? RE: splint Patient goal and desires: none stated, agreeable to OT session OBJECTIVE: CLIENT FACTORS: Mental Functions: Level of Consciousness: Alert Orientation Level: Oriented X4 Oriented to: Name, Date of , Day, Date, Month, Year, Place, Name of hospital Following Directions: Follows all directions without difficulty Success rate following directions: 100% of the time Patient Behaviors/Mood: Anxious, Cooperative, Poor Eye Contact, Pleasant Memory: Intact Attention to Tasks: Attends to task, Attends to conversation Safety Awareness: Full awareness of safety precautions, Full awareness of deficits (erbalizes full awareness of safety precautions/activity restrictions) Problem Solving: Assistance required to generate solutions, Assistance required to implement solutions Behaviors: Alert, Anxious, Cooperative, Decreased eye contact Aphasia: None present Functional Communication: Intact, Appears able to comprehend verbal/written information OCCUPATIONS: Current Activities of Daily Living: Functional Mobility Bed Mobility: Rolling: Activity does not occur (seen for splint fabrication) Transfers: Sit to Stand: Activity does not occur [x]Vital signs monitored and found to be within normal limits with exceptions noted in Flowsheets/detailed below Hemodynamic Response/Aerobic Capacity See flowsheet Pain: Reports discomfort in PROM in ignacio elbows Intervention: repositioning coordinated with RN for pain medication educated on non-pharmacological pain management techniques Elevated BUE Limiting Symptoms: Pain Additional Tests/Measures: Splinting:Reason for visit: Fabrication Location 1: Right Splint Type: Resting hand splint, Prefabricated, Custom Recommended Splint Wearing Schedule: At all times but may remove for dressing changes and skin checks (and range of motion) Splinting Comments: prefab modified w/R hand elevation, flared base. no areas of reddness or skin breakdown. communictaed w/RN to check in 1hr. OT to follow up tomorrow for splint check Team Communication: Communicated with [x]RN []MD [x]PT []CM RE: Patient status []Rodeo Clown utilized for session Intervention: Splint fabrication, Orthotic management training Patient/Caregiver Education RE: [x] Role of OT [x] Plan of care, [x] Discharge recommendations [] Fall Risk Reduction [] Rehabilitation process and prognosis [] Delirium Education Other: There-ex: Pt left supine with all needs in reach, chair alarm for safety ASSESSMENT/CLINICAL IMPRESSION: Mayra Craft is a 74 y.o. female with chronic R rotator cuff arthropathy s/p R total shoulder arthroplasty 07/11/25 then conversion to R shoulder hemiarthroplasty with glenoid and humeral implant on 08/01/25 w/recent hospitalization 08/01-08/10 due to SOB w/CHF vs COPDE/PNA mucoid impaction, dced to SNF, who presents to occupational therapy during hospitalization after presenting on 08/19 with worsening b/l shoulder pain after fall at SNF 4 days prior to admission found to have L humeral Fx and RUE DVT. S/p R shoulder IR aspiration 08/22 with no culture growth.Patient currently inpatient with continued pain control. Pt seen today for splint fabrication (see above). No evidence of redness or skin breakdown. OT to follow up tomorrow for splint check. Pt demonstrates limited progress with therapy, given ongoing pain and edema. 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 Due to pt current impairments and their impact on occupational engagement, pt will most benefit from d/c to interdisciplinary rehab. Given patient's limited ability to tolerate therapy due to pain and edema, contacted interdisciplinary team regarding next steps. Acute OT will continue to follow andprogress per intervention plan. Treatment Plan: ADL retraining, Balance training, Edema management, Equipment evaluation/education, Fine motor coordination activities, Functional mobility training, IADL retraining, Patient/family education, Sensory stimulation, Upper extremity strengthening, Upper extremity ROM, Upper extremity splinting Patient agrees with the above goals and is willing to participate in the rehabilitation program: Yes Time: 9676-2982 Occupational Therapist Name: Ciarra Velasco OT #[id number] Occupational Therapist Pager: [phone] * Eloy Gomez MD - 08/30/2025 9:55 AM EST HOSPITAL MEDICINE PROGRESS NOTE Patient: Mayra Craft Admit Date: 08/19/2025 LOS: 10 days Primary Care Physician: Vanessa Culver MD Interval Events: None reported. Subjective: Patient reports feeling ok today, she continues to have similar pain to yesterday and the last few days. There is no chest pain. She notes no dyspnea this morning. Helton was removed yesterday, but patient was unable to urinate, so Helton was replaced. Physical Exam Temp: [97.4 ??F (36.3 ??C)-98.5 ??F (36.9 ??C)] 97.4 ??F (36.3 ??C) Heart Rate: [65-76] 66 Resp: [16-20] 18 BP: (87-145)/(40-84) 145/84 SpO2: [88 %-100 %] 100 % Stool Assessment Stool Occurrence: 1 Bowel Incontinence: Yes Stool Amount: Small Stool Appearance: Loose Stool Color: Brown Last BM Date: 08/29/25 Stool Amount: Small Stool Appearance: Loose Stool Color: Brown Last BM Date: 08/29/25 0-10 Pain Score : Sleeping (08/30/2025 9:16 AM) Macdonald-Sanford FACES Pain Ratin (08/30/2025 1:24 AM) Pain Type: Acute pain; Chronic pain (08/29/2025 1:00 PM) Pain Location: Shoulder (08/29/2025 1:00 PM) Pain Orientation: Right; Left (08/29/2025 1:00 PM) General: Appears uncomfortable. HEENT: No scleral icterus. No conjunctival injection. Pulmonary: No increased work of breathing, on 4 L NC. Lungs with no wheezing, rales. Cardiovascular: Regular rate and rhythm. No murmurs, gallops, or rubs. Abdominal: Soft, mildly distended, non-tender to palpation. Extremities: No lower extremity edema. Warm and well perfused. MSK: Pt with large area of bruising around left arm (within marked area) and improving with ROM intact at shoulder, limited at elbow due to pain. LUE with improved swelling with compression with cori wrapping. RUE with 2+ pitting edema in the proximal arm. Mild tenderness to palpation over right upper arm with c/d/I incision scar anteriorly + preserved ROM at shoulder, ROM limited over elbow due to pain. R wrist with bruising over R wrist, pain with flexion, improvement on extension--ROM intact though with pain. Neuro: Vision and hearing grossly intact. Face symmetric. Moving all four extremities purposefully. Psych: Alert and oriented. Normal affect. Lines: RIJ, helton in place Data: I have reviewed the relevant labs, radiology studies, tracings, medical records, and they are notable for Results for orders placed or performed during the hospital encounter of 08/19/25 (from the past 24 hours) C-Reactive Protein Result Value Ref Range C-Reactive Protein (CRP) 113.0 (H) 0.0 - 5.0 mg/L Renal Function Panel Result Value Ref Range Sodium 131 (L) 135 - 147 mmol/L Potassium 4.0 3.5 - 5.4 mmol/L Chloride 95 (L) 96 - 108 mmol/L Total CO2/Bicarbonate 31 22 - 32 mmol/L Anion Gap 5 4 - 16 mmol/L BUN 20 6 - 20 mg/dL Creatinine, Blood 0.40 0.40 - 1.10 mg/dL Glucose, Blood 132 (H) 70 - 100 mg/dL Calcium 7.9 (L) 8.4 - 10.3 mg/dL Albumin, Blood 2.3 (L) 3.5 - 5.2 g/dL Phosphorus 2.8 2.7 - 4.5 mg/dL Magnesium, Blood 2.1 1.6 - 2.6 mg/dL CBC Result Value Ref Range WBC 5.80 4.00 - 10.00 K/uL RBC 2.73 (L) 3.90 - 5.20 M/uL Hemoglobin 7.6 (L) 11.2 - 15.7 g/dL Hematocrit 24.4 (L) 34.0 - 45.0 % MCV 89 82 - 98 fL MCH 27.8 26.0 - 32.0 pg MCHC 31.1 (L) 32.0 - 37.0 g/dL RDW 15.8 (H) 10.5 - 15.5 % RDW-SD 51.3 (H) 35.1 - 46.3 fL Platelet Count 261 150 - 400 K/uL Nucleated RBC 0 <=0 #/100 WBC XR Shoulder 2+ VW Left Result Date: 08/29/2025 EXAMINATION: XR SHOULDER 2+ VW LEFT INDICATION: pt with known L proximal humerus comminuted fracture with significant edema + continued pain, XR for worsening of fracture; TECHNIQUE: Frontal and Grashey view radiographs of the left shoulder. COMPARISON: Radiographs of the left shoulder from 19 August 2025. FINDINGS: Partially-imaged left-sided dual lead cardiac device noted. Again seen is the comminuted and impacted fracture of the left proximal humerus involving the humeral head and surgical neck. Fracture lines remain visible, though with interval callus formation. No evidence of acromioclavicular or glenohumeral joint dislocation. No new fracture detected. Probable diffuse osteopenia. Left lower lung opacity seen on frontal and oblique views. This appears more pronounced than on the 7December 2024 left shoulder radiographs. Recommend further evaluation with dedicated chest x-ray. Surgical sutures noted in the left lung. RECOMMENDATION(S): Chest x-ray. NOTIFICATION: The findingsand recommendations above were discussed with, and acknowledged by Dr. Mayra Craft by Dr. Sunni Pham, using [employer] Secure Chat on 08/28/2025 at 3:24 pm, 2 minutes after discovery of the findings. BY ELECTRONICALLY SIGNING THIS REPORT, I THE ATTENDING PHYSICIAN ATTEST THAT I HAVE REVIEWED THE IMAGES FOR THE ABOVE PROCEDURE(S) AND AGREE WITH THE FINDINGS DOCUMENTED. Sunni Mercado MD, electronically signed on Aug 29 2025 03:22PM XR Humerus 2+ VW Right Result Date: 08/28/2025 EXAMINATION: XR HUMERUS 2+ VW RIGHT INDICATION: c/f R humerus pathology given r wrist drop; TECHNIQUE: Frontal view radiographs of the right humerus. COMPARISON: Radiographs of the right shoulder from 19 August 2025. FINDINGS: Again seen right shoulder arthroplasty hardware without evidence of hardware loosening. There is persistent anterior, medial, and inferior displacement of the right humeral head component relative to the glenoid. No fracture. If there remains clinical concern for nerve compression, please consider MRI for further evaluation. XR Chest 1 VW Portable Result Date: 08/28/2025 EXAMINATION: XR CHEST 1 VW PORTABLE INDICATION: incidentally noted LLL consolidation; TECHNIQUE: Chest portable AP COMPARISON: Multiple prior studies, most recent chest radiograph dated 08/23/2025. Retrocardiac and right basilar opacifications appear grossly similar and are better assessed by therecent chest CT. Diffuse reticular opacities are also better assessed by the previous chest CT, probably representing extensive emphysema. Superimposed inflammation is possible. Otherwise no significant interval change in the appearance of the chest. Kristopher Hickey MD, electronically signed on Aug 28 2025 04:02PM ECG 12 lead Result Date: 08/28/2025 Sinus rhythm with premature atrial depolarizations When compared with ECG of 23-Aug-2025 00:35, No significant change was found Temporary Access Catheter Placement Result Date: 08/27/2025 INDICATION: Inability to obtain or maintain peripheral venous access COMPARISON: None. TECHNIQUE: OPERATORS: Dr. Mckeon, attending interventional radiologist performed the procedure. ANESTHESIA: Local only Fluoro time 15 seconds Radiation Dose: <1 mGY PROCEDURE: PROCEDURE DETAILS: Following the explanation of the risks, benefits and alternatives to the procedure, written informed consent was obtained from the patient. The patient was then brought to the angiography suite and placed supine on the exam table. A pre-procedure time-out was performed per [facility] protocol. The right neck was preppedand draped in the usual sterile fashion. Under continuous ultrasound guidance, the patent right internal jugular vein was compressible and accessed using a micropuncture needle. Permanent ultrasound images were obtained before and after intravenous access, which confirmed vein patency. Subsequentlya Nitinol wire was passed into the IVC using fluoroscopic guidance. The needle was exchanged for a micropuncture sheath. The Nitinol wire was removed and an 0.035 wire was advanced into the IVC. A triple lumen central catheter was advanced over the wire into the superior vena cava with the tip in the cavoatrial junction. All 3 access ports were aspirated, flushed and capped. The catheter was secured to the skin with a 0 silk suture and sterile dressings were applied. Final spot fluoroscopic image demonstrating good alignment of the catheter and no kinking. The patient tolerated the procedure well without immediate complications. FINDINGS: Patent right internal jugular vein. Final fluoroscopic image showing the catheter tip terminating in the distal superior vena cava. Successful placement of a 7 Fr 16 cm triple-lumen temporary central venous catheter via the right internal jugular venous approach. The tip of the catheter terminates in the distal superior vena cava. The catheter is ready for use. Sammi Mckeon MD, electronically signed on Aug 27 2025 01:44PM XR Abdomen Portable Result Date: 08/25/2025 INDICATION: LUQ abdominal pain; TECHNIQUE: Portable supine abdominal radiograph was obtained. COMPARISON: None Nonspecific bowel gas pattern with gas noted throughout nondilated small bowel loops in the midlineand: To the level of rectum. There is a single dilated loop of bowel probably small bowel loop in the left upper quadrant suggestive of focal ileus or could be splenic flexure. Moderate stool burden in the right side of the colon. Suboptimal study for evaluation of free air however no gross pneumoperitoneum. There are degenerative changes in the spine Kate Lugo MD, electronically signed on Aug 25 2025 03:52PM XR Hand 3+ VW Right Result Date: 08/24/2025 EXAMINATION: XR WRIST 3+ VW RIGHT; XR HAND 3+ VW RIGHT INDICATION: pt with fall and continued r wrist and hand pain.; TECHNIQUE: Frontal, oblique, and lateral view radiographs of right hand and wristCOMPARISON: None available. No acute fractures or dislocations are seen. Mild degenerative changes of the first carpometacarpaljoint in setting of osteophytosis. Mild negative ulnar variance. No bone erosion or periostitis. Nosuspicious lytic or sclerotic lesion. No soft tissue calcifications or radiopaque foreign body. No significant carpal bone malalignment. BY ELECTRONICALLY SIGNING THIS REPORT, I THE ATTENDING PHYSICIAN ATTEST THAT I HAVE REVIEWED THE IMAGES FOR THE ABOVE PROCEDURE(S) AND AGREE WITH THE FINDINGS DOCUMENTED. Geeta Hummel MD, electronically signed on Aug 24 2025 05:46PM XR Wrist 3+ VW Right Result Date: 08/24/2025 EXAMINATION: XR WRIST 3+ VW RIGHT; XR HAND 3+ VW RIGHT INDICATION: pt with fall and continued r wrist and hand pain.; TECHNIQUE: Frontal, oblique, and lateral view radiographs of right hand and wristCOMPARISON: None available. No acute fractures or dislocations are seen. Mild degenerative changes of the first carpometacarpaljoint in setting of osteophytosis. Mild negative ulnar variance. No bone erosion or periostitis. Nosuspicious lytic or sclerotic lesion. No soft tissue calcifications or radiopaque foreign body. No significant carpal bone malalignment. BY ELECTRONICALLY SIGNING THIS REPORT, I THE ATTENDING PHYSICIAN ATTEST THAT I HAVE REVIEWED THE IMAGES FOR THE ABOVE PROCEDURE(S) AND AGREE WITH THE FINDINGS DOCUMENTED. Geeta Hummel MD, electronically signed on Aug 24 2025 05:46PM ECG 12 lead Result Date: 08/24/2025 Sinus rhythm with premature atrial depolarizations Inferior infarct , age undetermined Abnormal ECGWhen compared with ECG of 21-Aug-2025 22:25, Inferior infarct is now present Chest 1 VW Portable Result Date: 08/23/2025 EXAMINATION: XR CHEST 1 VW PORTABLE INDICATION: Hypoxia, eval pneumonia, fluid overload, pneumothorax; TECHNIQUE: AP chest COMPARISON: Chest radiograph dated 08/19/2025 In comparison to study of August 19, there are similar bibasilar and retrocardiac opacifications, likely representing pneumonia. Similar diffuse increased interstitial opacities may represent underlying mild pulmonary edema and severe emphysema. No pleural effusion or pneumothorax. Cardiac silhouette size is normal. Similar position of the left chest wall pacer device leads. Left proximal humerus fracture is again noted. Guy Callahan MD, electronically signed on Aug 23 2025 07:31AM ECG 12 lead, to be obtained, dyspnea Result Date: 08/22/2025 Sinus rhythm with premature atrial depolarizations Right axis deviation When compared with ECG of 19-Aug-2025 17:25, Questionable change in QRS axis ST no longer elevated in Anterior leads MSK Injection / Aspiration - US Result Date: 08/22/2025 EXAMINATION: IR MSK INJECTION / ASPIRATION - US INDICATION: continued swelling of R shoulder, elevated CRP; TECHNIQUE: The risks, benefits, and alternatives were explained to the patient and written informed consent obtained. A pre- procedure timeout confirmed three patient identifiers. Under ultrasound guidance, an appropriate spot was marked. The area was prepared and draped in standard sterile fashion. 4 cc of 1% Lidocaine was used to achieve local anesthesia. Under intermittent ultrasound guidance, a 22-gauge spinal needle was advanced into the posterior aspect of the shoulder joint. Aspiration trail resulted in dry tap. Lavage of the joint was performed with 2-3 CC of joint reddish fluid was obtained. The needle was removed, hemostasis achieved, and a sterile bandage applied. The patient tolerated the procedure well and left the department in good condition. There were no immediate complications. COMPARISON: None FINDINGS: Again seen is cortical irregularity in keeping with known p roximal left humeral fracture. 1. Imaging Findings - as above. 2. Procedure - Uneventful ultrasound-guided lavage with fluid aspiration, which was sent for microbiology. I Dr. Duran personally supervised the Resident/Fellowduring the landrum components of the above procedure and I have reviewed and agree with the Resident/Fellow findings/dictation. BY ELECTRONICALLY SIGNING THIS REPORT, I THE ATTENDING PHYSICIAN ATTEST THAT I HAVE REVIEWED THE IMAGES FOR THE ABOVE PROCEDURE(S) AND AGREE WITH THE FINDINGS DOCUMENTED. Adarsh Duran MD, electronically signed on Aug 22 2025 03:47PM CT Shoulder Left Without Contrast Result Date: 08/21/2025 EXAMINATION: CT SHOULDER LEFT WO CONTRAST INDICATION: shoulder pain; TECHNIQUE: MDCT images of the left shoulder were obtained without contrast. Coronal and sagittal reformats were obtained. DOSE: Acquisition sequence: 1) Spiral Acquisition 5.0 s, 23.0 cm; CTDIvol = 13.3 mGy (Body) DLP = 306.2 mGy-cm Total DLP (Body) = 306 mGy-cm COMPARISON: Radiograph of left shoulder dated August [address] pulmonary angiography dated August 19. FINDINGS: BONES: Mild diffuse osseous demineralization. There is a complete transverse comminuted displaced fracture involving the neck of the humerus. The fracture line is seen extending into inferior articular surface of the humeral head as well as the greater t uberosity. There is almost half shaft width anterior displacement of the distal fracture fragment with mild superior migration (approximately 1.9 cm) and impaction. The glenohumeral alignment is well-maintained. No suspicious focal osseous lesion is seen. Note is made of compression fracture of indeterminate age T1 vertebral body and possible superior endplate compression of T2. Visualized ribs do not show any overt fracture, however the evaluation is limited by subtle motion artifacts. SOFT TISSUES: Mild soft tissue edema surrounding the shoulder joint. No localized fluid collection or any hematoma formation. No effusion or evidence of tendon entrapment. No disproportionate muscle atrophy.OTHER: Note is made of severe centrilobular emphysema in visualized lungs. Consolidative opacity inthe left lower lobe is partially visualized. Few nodular opacity in left upper lung. 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 These findings are better evaluated in recent CT pulmonary angiography 1. Complete transverse comminuted displaced, impacted fracture involving neck of the humerus extending into inferior articular surface humeral head and greater tuberosity 2. Compression fracture of indeterminate age T1 vertebral body and possible superior endplate compression of T2. 3. Consolidative opacity in the left lower lobe is partially visualized. Few nodular opacity in left upper lung. These findings are better evaluated in recent CT pulmonary angiography. If clinically indicated consider CT chest follow-up in 3 months. BY ELECTRONICALLY SIGNING THIS REPORT, I THE ATTENDING PHYSICIAN ATTEST THAT I HAVE REVIEWED THE IMAGES FOR THE ABOVE PROCEDURE(S) AND AGREE WITH THE FINDINGS DOCUMENTED. Guy Hummel MD, electronically signed on Aug 21 2025 10:44AM ECG 12 lead Result Date: 08/21/2025 Sinus rhythm with premature atrial depolarizations Minimal voltage criteria for LVH, may be normal variant ( Walker product ) Nonspecific T wave abnormality Inferior GA - indeterminate age Abnormal ECG When compared with ECG of 07-Aug-2025 13:31, premature ventricular depolarizations are no longerpresent premature atrial depolarizations are now present ST elevation now present in Anterior leads Shoulder 2+ Vw Left Result Date: 08/20/2025 INDICATION: s/p fall, surgery, pain, swelling ?fx; TECHNIQUE: Three views of the left shoulder COMPARISON: None. FINDINGS: A comminuted and impacted fracture of the left proximal humerus involves thehumeral head and surgical neck. No dislocation. Glenohumeral joint is preserved. Mild joint space narrowing of the acromioclavicular joint. Imaged left lung demonstrates chain sutures from prior leftupper segmentectomy. Generator pack for a pacer is seen in the left upper chest wall. Comminuted and impacted left proximal humeral fracture involving the humeral head and surgical neck. No dislocation. Akanksha Ríos MD, electronically signed on Aug 20 2025 11:03AM US Upper Extremity Venous Bilateral Result Date: 08/20/2025 EXAMINATION: US UPPER EXTREMITY VENOUS BILATERAL INDICATION: Edema, pain/tenderness TECHNIQUE: Greyscale and Doppler evaluation was performed on the bilateral upper extremity veins. COMPARISON: None. FINDINGS: There is normal flow with respiratory variation in the bilateral subclavian veins. The right internal jugular vein is patent, shows normal color flow, spectral doppler, and compressibility. The right brachial veins are patent and show compressibility. The right axillary vein is not compressible and does not show normal [id number] color flow, consistent with nonocclusive thrombus in the right axillary vein. The rest of the exam was not performed as the patient was unable to toleratethe exam due to pain. 1. Nonocclusive deep vein thrombus of the right axillary vein. 2. This study only assessed bilateral subclavian, right internal jugular, right brachial, and right axillary veins. The rest of upper extremities were not assessed as the patient was unable to tolerate the exam due to pain. NOTIFICATION: The findings were discussed with, and acknowledged by Dr. Albin Puentes by Dr. Sherry Valladares, using [employer] Secure Chat on 08/20/2025 at 9:53 am, 3 minutes after discovery of the findings. BY ELECTRONICALLY SIGNING THIS REPORT, I THE ATTENDING PHYSICIAN ATTEST THAT I HAVE REVIEWED THE IMAGES FOR THE ABOVE PROCEDURE(S) AND AGREE WITH THE FINDINGS DOCUMENTED. Sherry Gomez MD, electronically signed on Aug 20 2025 10:38AM XR Chest 1 Vw Portable Result Date: 08/19/2025 EXAMINATION: XR CHEST 1 VW PORTABLE INDICATION: sob, cough /pna; TECHNIQUE: Semi-upright AP view ofthe chest COMPARISON: CTA chest 19 August 2025 at 18:44 and 07 August 2025, chest radiograph 07 August 2025 FINDINGS: Left-sided pacer with leads in the right atrium and right ventricle, unchanged.Mild cardiomegaly is similar. Mediastinal and hilar contours are unchanged. No pulmonary edema. Diffuse increased interstitial opacities are again noted and related to underlying severe emphysema. Patchy airspace opacities are again noted in the lower lobes which is concerning for pneumonia. No pleural effusion or pneumothorax. No acute osseous abnormalities. Partially imaged comminuted left proximal humeral fracture. Status post right shoulder arthroplasty with the humeral head component demonstrating anterior dislocation. Contrast from recent CT examination is seen in the renal collectingsystems bilaterally. Patchy bilateral lower lobe opacities suggesting pneumonia as seen on prior CT. Partially imaged comminuted left proximal humeral fracture and anteriorly dislocated humeral component of a right shoulder arthroplasty. Akanksha Ríos MD, electronically signed on Aug 19 2025 10:25PM XR Shoulder 2+ Vw Right Result Date: 08/19/2025 INDICATION: s/p fall, surgery, pain, swelling ?fx; TECHNIQUE: Right shoulder, three views COMPARISON: CT chest 07 August 2025 and right shoulder radiographs 14 August 2025 FINDINGS: Status post right shoulder arthroplasty with persistent anterior, medial and inferior displacement of the humeral head component relative to the glenoid. No acute fracture. Acromioclavicular joint demonstrates milddegenerative changes. Fragmentation of the acromion appears chronic. No periarticular soft tissue calcifications. Severe emphysema is noted in the imaged right lung. 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 No acute fracture. Akanksha Ríos MD, electronically signed on Aug 19 2025 10:25PM XR Elbow 3+ VW Right Result Date: 08/19/2025 INDICATION: elbow pain; TECHNIQUE: AP and lateral views of the elbows bilaterally COMPARISON: None.FINDINGS: On the left, no acute fracture or dislocation. No elbow joint effusion. Mild degenerativechanges of the humeroulnar joint. No concerning lytic or sclerotic osseous abnormality. No embeddedradiopaque foreign body or soft tissue calcification. On the right, no acute fracture or dislocation. No elbow joint effusion. Mild degenerative changes of the ulnohumeral joint. No suspicious lytic or sclerotic osseous abnormality. Mild soft tissue irregularity is seen along the dorsal aspect of th e elbow. No acute fracture or dislocation involving either elbow. Akanksha Ríos MD, electronically signed on Aug 19 2025 10:24PM XR Elbow 3+ VW Left Result Date: 08/19/2025 INDICATION: elbow pain; TECHNIQUE: AP and lateral views of the elbows bilaterally COMPARISON: None.FINDINGS: On the left, no acute fracture or dislocation. No elbow joint effusion. Mild degenerativechanges of the humeroulnar joint. No concerning lytic or sclerotic osseous abnormality. No embeddedradiopaque foreign body or soft tissue calcification. On the right, no acute fracture or dislocation. No elbow joint effusion. Mild degenerative changes of the ulnohumeral joint. No suspicious lytic or sclerotic osseous abnormality. Mild soft tissue irregularity is seen along the dorsal aspect of th e elbow. No acute fracture or dislocation involving either elbow. Akanksha Ríos MD, electronically signed on Aug 19 2025 10:24PM CT Angiogram Chest PE : Arteriogram Addendum Date: 08/19/2025 ADDENDUM The patient is status post right shoulder arthroplasty (not reverse shoulder arthroplasty). The anterior dislocation of the humeral head component relative to the glenoid appears similar compared to the prior CTA chest from August 07, 2025. Akanksha Ríos MD, electronically signed on [id number] 08:47PM Result Date: 08/19/2025 EXAMINATION: CTA CHEST WITH CONTRAST INDICATION: pt w/ sob, chest pain, tachycardia; TECHNIQUE: Axial multidetector CT images were obtained through the thorax after the uneventful administration of intravenous contrast including reformatted coronal, sagittal, and oblique and axial maximal intensityprojection (MIP) images. DOSE: Acquisition sequence: 1) Stationary Acquisition 0.5 s, 0.5 cm; CTDIvol = 3.0 mGy (Body) DLP = 1.5 mGy-cm 2) Stationary Acquisition 2.0 s, 0.5 cm; CTDIvol = 12.1 mGy (Body) DLP = 6.1 mGy-cm 3) Spiral Acquisition 4.1 s, 30.6 cm; CTDIvol = 8.2 mGy (Body) DLP = 252.0 mGy-cm Total DLP (Body) = 260 mGy- cm COMPARISON: CTA chest 07 August 2025 FINDINGS: VASCULATURE: Main pulmonary artery is borderline enlarged at 3.1 cm. No filling defects to the subsegmental level to indicate a pulmonary embolism. Ascending aorta demonstrates fusiform dilatation to 4.2 cm and the descending thoracic aorta is dilated up to 3.4 cm, as seen previously. No aortic dissection or intramural hematoma. HEART: Mild cardiomegaly. Pacing leads terminate within the right atrium and right ventr icle. Moderate coronary artery calcifications. No significant pericardial effusion. AXILLA, MARCELL, AND MEDIASTINUM: No lymphadenopathy or mass. The esophagus is patulous which can be seen with esophageal dysmotility. PLEURAL SPACES: No pleural effusion or pneumothorax. LUNGS: Heterogeneous consolidative opacities in both lower lobes can be seen with pneumonia. Severe centrilobular emphysema is again demonstrated. AIRWAYS: Airway wall thickening suggesting inflammation is noted. Central airways are patent to the segmental bronchial level. BASE OF NECK: 5 mm rim calcified thyroid nodule is notedwhich does not require specific sonographic follow-up. ABDOMEN: Visualized upper abdomen unremarkable. BONES: A comminuted left proximal humeral fracture is incompletely imaged. Status post right reverse shoulder arthroplasty with anterior subluxation/dislocation of the hardware relative to the glenoid. A subacute fracture of the sternum is noted (602:74). Compression deformities of the T1 and T11 vertebral bodies are unchanged. SOFT TISSUES: Soft tissue stranding is seen within the left shoulder secondary to the humeral fracture. 1. No pulmonary embolism or acute aortic pathology. 2. Severe emphysema with mild dilatation of thepulmonary artery measuring up to 3.1 cm, unchanged, which can be seen with pulmonary arterial hypertension. 3. Mild dilatation of the ascending and descending thoracic aorta, unchanged. See recommendations below. 4. Heterogeneous consolidative opacities in both lower lobes may reflect pneumonia. 5.Acute, comminuted left proximal humeral fracture. 6. Status post reverse right shoulder arthroplasty with anterior subluxation/dislocation of the humeral component relative to the glenoid. 7. Chroniccompression deformities of T1 and T11 vertebral bodies. RECOMMENDATION(S): Follow-Up Imaging: Thoracic aorta 4.0 - 4.4 cm in diameter - if stable findings at 12 months or interval increase in diameter is < 3 mm, consider follow-up with ECG-gated chest CTA in 2 years. Management recommendations for follow-up of thoracic aortic aneurysm are based on existing literature and multidisciplinary consensus document of our institution, including Cardiology, Vascular Surgery, and Cardiac Surgery and it is specifically designed for this program. Isselbacher EM, et al. ACC/AHA Guideline for the Diagnosis and Management of Aortic Disease: A Report of the [place] [employer]/[place] College ofCardiology Joint Committee on Clinical Practice Guidelines. Circulation 202; 146:g417-b789. Erbel R, et al. ESC Guidelines on the diagnosis of thoracic and abdominal aorta of the adult. Eur Heart J 2014;35:4494-3789. Cindy TURCIOS et al. The Society of Vascular Surgery practice guidelines on the care of patients with an abdominal aortic aneurysm. J Vasc Surg 2018;67:2-77. Joseph V, et al. Management of Descending Thoracic Aortic Disease: Clinical Practice Guidelines of the Society of Vascular Surgery. Eur J Vasc Endovasc Surg 2017;53:4-52. Akanksha Ríos MD, electronically signed on Aug 19 2025 07:13PM US Lower Extremity Venous Left Result Date: 08/19/2025 EXAMINATION: US LOWER EXTREMITY VENOUS LEFT INDICATION: Left lower extremity pain and edema. TECHNIQUE: Mullen scale, color, and spectral Doppler evaluation was performed on the left lower extremity veins. The patient could not tolerate evaluation of the calf veins. COMPARISON: None. FINDINGS: There is normal compressibility, color flow, and spectral doppler of the left common femoral, femoral, andpopliteal veins. The patient was unable to tolerate evaluation of the calf veins. There is normal respiratory variation in the common femoral veins bilaterally. No evidence of medial popliteal fossa ([place]) cyst. Unable to evaluate the calf veins, but there is no evidence of deep venous thrombosis in the other left lower extremity veins. BY ELECTRONICALLY SIGNING THIS REPORT, I THE ATTENDING PHYSICIAN ATTEST THAT I HAVE REVIEWED THE IMAGES FOR THE ABOVE PROCEDURE(S) AND AGREE WITH THE FINDINGS DOCUMENTED. Geo Ríos MD, electronically signed on Aug 19 2025 07:17PM CT Cervical Spine Without Contrast Result Date: 08/19/2025 EXAMINATION: CT CERVICAL SPINE WO CONTRAST INDICATION: s/p fall; TECHNIQUE: Contiguous axial imagesobtained through the cervical spine without intravenous contrast. Coronal and sagittal reformats were reviewed. DOSE: Acquisition sequence: 1) Sequenced Acquisition 18.0 s, 18.0 cm; CTDIvol = 50.2 mGy (Head) DLP = 903.1 mGy-cm 2) Spiral Acquisition 5.7 s, 21.2 cm; CTDIvol = 24.5 mGy (Body) DLP = 518.9 mGy-cm Total DLP (Body) = 519 mGy-cm Total DLP (Head) = 903 mGy-cm Note: This radiation dose report was copied from accession #[id number] (CT HEAD WO CONTRAST) COMPARISON: CT chest 07 August 2025 FINDINGS: Reversal of the normal cervical lordosis is demonstrated. No traumatic malalignment. R otation of C1 on C2 is likely due to head positioning within the scanner. No definite acute fractures are identified. There is moderate anterior height loss of the T1 vertebral body, unchanged from prior CT from July 2025. [id number] multilevel degenerative changes with intervertebral disc space narrowing, endplate sclerosis, and osteophyte formation. No high-grade central canal stenosis. Mild multilevel neural foraminal stenosis without high-grade narrowing.There is no prevertebral edema. Stranding in the left supraclavicular soft tissues relates to a left proximal humeral fractureas seen on the biochemistry teacher views. Severe emphysema is noted in the left lung apex. Thyroid gland demonstra kasi a rim calcified 5 mm nodule on the right which does not require dedicated imaging follow-up. 1. No acute cervical spine fracture or traumatic malalignment. 2. Left proximal humeral fracture imaged on the biochemistry teacher view. 3. Chronic compression deformity of the T1 vertebral body. Aknaksha Ríos MD, electronically signed on Aug 19 2025 06:57PM CT Head Without Contrast Result Date: 08/19/2025 EXAMINATION: CT HEAD WO CONTRAST [id number] CT BID-HEAD INDICATION: s/p fall; TECHNIQUE: Contiguous axial images of the brain were obtained without contrast. Coronal and sagittal reformations as well as bone algorithm reconstructions were provided and reviewed. DOSE: Acquisition sequence: 1) Sequenced Acquisition 18.0 s, 18.0 cm; CTDIvol = 50.2 mGy (Head) DLP = 903.1 mGy-cm 2) Spiral Acquisition 5.7 s, 21.2 cm; CTDIvol = 24.5 mGy (Body) DLP = 518.9 mGy-cm Total DLP (Body) = 519 mGy-cm Total DLP (Head) = 903 mGy-cm COMPARISON: None. FINDINGS: There is no evidence of fracture, acute large territorial infarction, hemorrhage, edema, or mass. There is prominence of the ventricles and sulci suggestive of involutional changes. Moderate periventricular and subcortical white matter hypodensitiesare nonspecific, but likely reflect the sequela of chronic microvascular infarction. The visualizedportion of the paranasal sinuses, mastoid air cells, and middle ear cavities are clear. Patient is status post bilateral lens replacements. 1. No acute intracranial abnormality. Akanksha Ríos MD, electronically signed on Aug 19 2025 06:49PM XR Shoulder 2+ VW Right Result Date: 08/14/2025 EXAMINATION: XR SHOULDER 2+ VW RIGHT INDICATION: R Shoulder Pain; TECHNIQUE: Three views right shoulder COMPARISON: 01 August 2025 Redemonstrated reverse right shoulder arthroplasty with grossly intact hardware and maintained alignment. There is no acute fracture.. Slight interval decrease in streaky opacities in the right upperlung zone. Mild degenerative changes at the glenohumeral joint.. Kate Lugo MD, electronically signed on Aug 14 2025 02:56PM CT Angiogram Chest PE : Arteriogram Result Date: 08/08/2025 EXAMINATION: CTA CHEST WITH CONTRAST INDICATION: patient with new 02; TECHNIQUE: Axial multidetector CT images were obtained through the thorax after the uneventful administration of intravenous contrast including reformatted coronal, sagittal, and oblique and axial maximal intensity projection (MIP) images. DOSE: Acquisition sequence: 1) Sequenced Acquisition 0.5 s, 0.2 cm; CTDIvol = 7.2 mGy (Body) DLP = 1.4 mGy-cm 2) Stationary Acquisition 3.7 s, 0.2 cm; CTDIvol = 61.8 mGy (Body) DLP = 12.4 mGy-cm 3) Spiral Acquisition 5.4 s, 35.0 cm; CTDIvol = 12.6 mGy (Body) DLP = 431.5 mGy-cm Total DLP (Body) = 445 mGy-cm COMPARISON: Outside CT chest available in the [facility] 28 May 2025 FINDINGS: VASCULATURE: No pulmonary embolism to the subsegmental level. The ascending thoracic aorta is mildly dilated measuring up to 4.1 cm. There are mild atherosclerotic calcifications of the thoracic aorta. HEART: Normal heart size. Mild atheromatous coronary calcifications. No significant pericardial effusion. AXILLA, MARCELL, AND MEDIASTINUM: No lymphadenopathy or mass. Mildly dilated air- filled and patulous esophagus predominantly in the upper and midportion. PLEURAL SPACES: No pleural effusion or pneumothorax. LUNGS: Postsurgical changes from left upper posterior segmentectomy. Diffuse emphysematouschanges noted in bilateral lung villavicencio in the form of emphysematous bullae, more so in the bilateral upper lobes. Few patchy areas of ground-glass in noted in the apical segment of bilateral upper lobe,likely representing mild mosaic attenuation related to regional differences in ventilation. Fibroatelectatic changes noted involving the most of the right upper lobe, posterior and lateral segmentof right lower lobe and apicoposterior segment of left upper lobe. There is a 2.3 by 1.5 cm irregular subpleural consolidative opacity in the right lung base and an additional 16 mm subpleural nodular opacity in the medial right lung base. AIRWAYS: Patent central airways. There are filling defects noted in the anterior aspect of the left mainstem bronchus, likely secretions. Bilateral lower lobe p redominant diffuse bronchial wall thickening most pronounced in the right lower lobe with scatteredareas of mucous plugging. BASE OF NECK: Limited evaluation due to metallic artifacts from processesin right humerus, grossly normal. Lines and tubes: Trans subclavian atrial ventricular pacer leads continuous from left pectoral generator flow expected course. ABDOMEN: The study is not tailored for subdiaphragmatic evaluation. Partially imaged small hepatic cyst. Partially imaged scattered calcifications in the pancreas likely sequela of chronic pancreatitis BONES: Reduced height T1 and T10 vertebral body noted, likely compression fracture. Visualized spine shows degenerative changes in the form of osteophytes. Mild scoliosis with convexity towards right side. SOFT TISSUES: Unremarkable. No evidence of acute pulmonary embolism or aortic abnormality. Bilateral lower lobe predominant diffuse bronchial wall thickening most pronounced in the right lower lobe with areas of mucoid impaction. Subpleural nodular consolidative opacities in the right lung base, likely infectious or inflammatory etiology possibly related to aspiration. Stable postsurgical changes left upper lobe. Mildly dilated air-filled and patulous esophagus, may be related to reflux/dysmotility. Other stable findings BY ELECTRONICALLY SIGNING THIS REPORT, I THE ATTENDING PHYSICIAN ATTEST THAT I HAVE REVIEWED THE IMAGES FOR THE ABOVE PROCEDURE(S) AND AGREE WITH THE FINDINGS DOCUMENTED. Noble Clements MD , Kate Lugo MD, electronically signed on Aug 08 2025 11:37PM US Upper Extremity Venous Right Result Date: 08/08/2025 EXAMINATION: US UPPER EXTREMITY VENOUS RIGHT INDICATION: Right upper extremity edema. TECHNIQUE: Mullen scale and Doppler evaluation was performed on the right upper extremity veins. COMPARISON: None. FINDINGS: There is normal flow with respiratory variation in the bilateral subclavian veins. The right internal jugular, axillary, and brachial veins are patent, show normal color flow, spectral doppler, and compressibility. The right basilic, and cephalic veins are patent, compressible and show normal color flow. No evidence of deep vein thrombosis in the right upper extremity. BY ELECTRONICALLY SIGNING THIS REPORT, I THE ATTENDING PHYSICIAN ATTEST THAT I HAVE REVIEWED THE IMAGES FOR THE ABOVE PROCEDURE(S) AND AGREE WITH THE FINDINGS DOCUMENTED. Shivani Mcelroy MD , David Duran MD, electronicallysigned on Aug 08 2025 05:11PM XR Chest 1 VW Result Date: 08/08/2025 EXAMINATION: XR CHEST 1 VW INDICATION: increased 02 post op; increased 02 post op; TECHNIQUE: AP portable chest. COMPARISON: 06 August 2025 chest radiograph Since 06 August 2025 chest radiograph, stable nonspecific interstitial opacities, most notable inthe right upper lung. These opacities may represent pneumonia in the appropriate clinical context, although they may also represent chronic emphysematous changes or other chronic disease. Recommend CT chest with contrast for further evaluation. No significant pneumothorax. No significant pleural abnormality. Mildly increased retrocardiac opacity may be minimal atelectasis. Unremarkable cardiomediastinal silhouette. Monitoring and support devices are unchanged. Multiple serpiginous opacities distributed throughout the view of the hemithorax are likely outside of the patient. RECOMMENDATION(S):CT chest with contrast NOTIFICATION: The findings were discussed with, and acknowledged by Ching Martin by Dr. Cristopher Perry, using [employer] Secure Chat on 08/07/2025 at 3:01 pm, 5 minutes after discovery of the findings. BY ELECTRONICALLY SIGNING THIS REPORT, I THE ATTENDING PHYSICIAN ATTEST THAT I HAVE REVIEWED THE IMAGES FOR THE ABOVE PROCEDURE(S) AND AGREE WITH THE FINDINGS DOCUMENTED. Duran Chaudhari MD, electronically signed on Aug 08 2025 09:02AM ECG 12 lead Result Date: 08/07/2025 Sinus rhythm with frequent premature ventricular depolarizations and atrial paced complexes Inferior infarct , age undetermined Abnormal ECG When compared with ECG of 06-Jul-2025 09:09, Inferior infarct is now present Chest 1 VW Portable Result Date: 08/06/2025 EXAMINATION: XR CHEST 1 VW PORTABLE INDICATION: 74F history of emphysema now with shortness of breath despite nebulizers; There are no prior chest radiographs. The combination of severe emphysema and moderate interstitialpulmonary abnormality could all be smoking related. However without prior chest radiographs I can not tell if the interstitial abnormality is an acute problem such as mild pulmonary edema and perhapseven concurrent right upper lobe pneumonia. Any prior chest radiographs performed elsewhere should be obtained for tbrp-di-evfk comparison. Heart size is normal. No appreciable pleural abnormality ispresent. Trans subclavian atrial ventricular pacer leads continuous from the left pectoral generator follow expected courses. Romel Glynn MD, electronically signed on Aug 06 2025 09:04AM XR Shoulder 2+ VW Right Result Date: 08/02/2025 EXAMINATION: XR SHOULDER 2+ VW RIGHT INDICATION: R Shoulder Pain; TECHNIQUE: AP internal rotated, Grashey, and AP view of the right shoulder. COMPARISON: Right shoulder radiograph performed 11 July 2025 FINDINGS: Status post reverse total shoulder arthroplasty. There is an interval migration of the glenoid hardware with the glenosphere now directed anteriorly. The screws of the glenoid hardware appear to be directed posteriorly. There is mild anterior/inferior subluxation, possible dislocation of the humeral component. There is a focal opacity projected over the peripheral aspect of the right mid lung, recommend outpatient CT chest to better characterize. There are partially imaged cardiac leads. RECOMMENDATION(S): Recommend outpatient CT chest to better characterize focal lung opacity. NOTIFICATION: Per chart review, this hardware failure was addressed at clinic and the patient was taken to the OR for revision, and right shoulder hemiarthroplasty. The recommendation above regarding CT chest was entered by Dr. Carlos A Hummel on 08/02/2025 at 06:20 into the Actionable Findings Management dashboard for communication to the referring provider. BY ELECTRONICALLY SIGNING THIS REPORT, I THE ATTENDING PHYSICIAN ATTEST THAT I HAVE REVIEWED THE IMAGES FOR THE ABOVE PROCEDURE(S) AND AGREE WITH THE FINDINGS DOCUMENTED. Carlos Renteria MD , Carlos A Hummel MD, electronically signed on Aug 02 2025 06:21AM XR Shoulder AP Right Portable Result Date: 08/01/2025 EXAMINATION: XR SHOULDER AP RIGHT PORTABLE INDICATION: post op revision right shoulder; COMPARISON:31 July 2025 FINDINGS: Interval right-sided reverse glenohumeral arthroplasty revision. No fracture seen. Right upper lobe infiltrates raise possibility of pneumonia. Imaging follow-up recommended. Miles Ortiz MD, electronically signed on Aug 01 2025 06:20PM XR Shoulder 1 VW Right Result Date: 08/01/2025 INDICATION: Pain TECHNIQUE: 1 axillary view of the right shoulder COMPARISON: 11 July 2025 radiographs FINDINGS: There is a reversed right shoulder arthroplasty which on this single view appears in good alignment. No definite periprosthetic lucency. There are old right-sided rib fractures. Fredy Hunter MD, electronically signed on Aug 01 2025 07:46AM Assessment and Plan: 74 y.o. 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 S/p R shoulder IR aspiration 08/22 with no culture growth. Patient currently inpatientwith continued pain control. PLAN # Pain control # History of Opioid Use Disorder, on suboxone Pt with a history of opioid use disorder in setting of opioids for pancreatitis, recently started on suboxone (May). Requiring high amounts of opioids in this setting given her humerus fractureand post-R shoulder hemiarthroplasty. - Continue low dose suboxone, increased to TID on 08/27 per chronic pain recommendations - Started Lyrica 75 mg BID 08/26 - Chronic pain consulted, appreciate recommendations: S/p Morphine SATURATION DIVER 08/22-08/28 Switched to Morphine 60 mg PO Q4H PRN + Morphine IV, per their last note, will switch to PO oxycodone 10 mg PO q4h PRN today Added on methocarbamol 500 mg QID on 08/27 # L proximal humerus comminuted transverse fracture s/p fall # Significant LUE edema Pt with a mechanical fall after misjudging where the toilet seat is and falling onto her L shoulder. Given persistent pain, presented to the ED. CT scan of L humerus showed acceptable alignment amenable to non-operative treatment with immobilization in a sling; however, pt unable to tolerate sling consistently with continued pain. Repeat LUE XR with interval callus formation and no new dislocation or fracture. - Ortho following, will plan for 1-2 week follow-up with L shoulder X-Ray LUE wrapped for compression due to edema with distal pulse, sensation, and motion checks every shift Re-engaged on 08/28 given continued pain, and significant swelling - Activity restrictions: can come out of the sling for gentle pendulum range of motion. She may usethe left upper extremity for light activity daily living but no heavy lifting more than 5 pounds (coffee cup weight bearing) - Pain control, see #Pain control as above - Appreciate OT evaluation # C/F R Wrist Drop Pt with R wrist pain and difficulty with voluntary extension. Ortho examined on 08/28 and not concerned about septic wrist, but are concerned for possible nerve impingement. - Follow-up R humerus XR - Neurology consult, as Ortho states they have no explanation for this # R shoulder swelling/pain, c/f R shoulder septic arthritis # Chronic R rotator cuff arthropathy s/p R total shoulder arthroplasty 07/11/25, conversion to R shoulder hemiarthroplasty with glenoid and humeral implant on 08/01/25 # Chronic right shoulder dislocation Pt with increased R shoulder pain and swelling post-surgery on 08/01 w/concern for possible septic joint w/CRP of 293. Initially given antibiotics, but d/c'ed for IR procedure on 08/20 to increase yield of IR tap on 08/22. Joint cultures NGTD. X ray showing chronic anterior dislocation of the humeral head relative to the glenoid, ortho reviewed and no acute intervention required, and will follow-up OP (Dr. Goins). - S/p vanc/cefepime on 08/19 - See #Pain control as above # Acute on chronic hypoxic respiratory failure (bl 4L NC) # C/f HAP # Leukocytosis, improved # Consolidative opacities in both lower lobes (from CT chest 08/19) # COPD without exacerbation Pt with noted consolidative opacities in both lower lobes from CT chest, initially w/o respiratory symptoms and baseline 4L NC. However, pt developed increased O2 requirements overnight, likely positional or 2/2 mucoid impaction; however, CXR still with evidence of PNA. Given pt was at rehab prior to current admission, treated recently for PNA with bactrim (08/01-08/10), and significant underlying lung disease will plan to treat for HAP. On 08/25, pt lost IV access and her IV antibiotics were transitioned to PO linezolid + levofloxacin. Overall, given pt's clinical stability very low concern for true MRSA HAP despite + MRSA swab, thus will plan to complete course of HAP coverage with Levofloxacin. - Vanc/Cefepime 08/23 - 08/25, Linezolid 08/26, Levofloxacin 08/26 - 08/29 - ANALYTICAL DATA MINER consultation appreciated, ok for regular diet - Continue home Dulera + Spiriva # Moderate hyponatremia, improving Pt with Na of 125 08/25. Overall most concerned for hypovolemic hyponatremia vs tea and toast givenpt unable to feed herself consistently. Of note, patient also getting vancomycin in Dextrose which could be contributing. Last diuretic dose on 08/22. Urine studies consistent with ADH being on givenUrine osms > 200. Urine Na is > 20, FeUrea < 55%. With IVF trial, Na increased, consistentwith likely low EABV though if pt does have SIADH it is likely in setting of uncontrolled pain. - 1L LR fluid challenge w/improvement in Na this AM - Continue to monitor Na # Urinary retention Pt with urinary retention this admission. Think that it is likely multifactorial, likely related tosome underlying pelvic floor dysfunction (pt was having trouble urinating prior to this hospitalization) + constipation from opioid use/decreased hydration + immobility. UA w/o evidence of infection. - Straight cath x4 - Helton placed overnight 08/25 - 08/26 - TOV attempted on 08/29, unsuccessful; Helton replaced # Access Pt with very difficult upper extremity access given RUE DVT + L humerus proximal fracture and resulting edema. Given need for SATURATION DIVER + other intermittent IV medication needs, including electrolyte repletion + frequent lab draws, will pursue central line placement as PICC/midline are not options. - IR consult for temp access to be done on 08/27 # New R axillary vein DVT Pt with worsening R arm pain post-fall on L shoulder, w/increased swelling over right shoulder and lower arm. She was found on admission to have a new R axillary vein DVT. - Hep gtt started 08/20. Does not need to hold for IR drain of R shoulder. - Switched to apixaban on 08/25 # Constipation -Senna/miralax scheduled + bisacodyl suppository PRN CHRONIC CONDITIONS # Chronic HFrEF Nt-proBNP was normal 125 on admission w/no signs/symptoms of volume overload. - on home lasix 20mg MWF, restart 08/22 due to initial hypotension in ED (improved with 1L NS) - was holding entresto given hypotension, resumed 08/21 - daily weights, strict I&O # SSS s/p dcICD # NSVT PVC burden of 10% on prior Zio. - change metop succ 12.5 bid -> metop tart 12.5 bid given hypotension on arrival, now currently low 100s # Chronic iron deficiency anemia - baseline hb 9-10s - iron low on 08/03, ferritin 101. - continue po iron # Moderate malnutrition has lost >30lbs over last 6 months d/t poor appetite. Hypocalcemia corrected to ~9 w/albumin. - multivitamins, ensure tid, nutrition consult. Need help with food due to b/l arm pain # Hypothyroidism - levothyroxine 50 # Anxiety/depression - ativan 0.5 bid -> changed to BID PRN due to high dose opioid use, c/h paroxetine 20 # GERD - omeprazole # HLD - lipitor. # Nonobstructive CAD - asa 81, stop while on therapeutic AC for now Core Measures Nutrition: Oral. Hydration: Oral. Functional status: Out of bed to chair with assist. Bowel Function: Constipated. Lines/Tubes/Drains: Peripheral IV. VTE prophylaxis: Therapeutic anticoagulation. Living Situation: lives alone. Though recently coming from rehab. PAML Status: The preadmission medication list is ACCURATE and COMPLETE.. Anticipated Disposition: Acute rehabilitation vs SNF. Anticipated Length of Stay: 4-5 days. Advanced Care Planning: Full Code. Contacts/HCP/Surrogate: Extended Emergency Contact Information Primary Emergency Contact: Ashanti Green Address: [address] [place] [id number] [place] Mobile Relation: Daughter Secondary Emergency Contact: Rory Craft Address: [address] [place], [place] [id number] [place] [address] [place] Mobile Relation: Son E/M Services: I spent 50 minutes in this clinical encounter reviewing the medical record, seeing and examining the patient, placing orders, writing notes, performing signout, and communicating with the applicable medical and nursing teams. Eloy Gomez MD Attending Physician Section of Hospital Medicine [facility] Complexity Bundle Hyponatremia (present on admission) : Labs repeated - Sodium of 130 on 08/27/2025 Anemia secondary to chronic disease and inflammation (present on admission) : Labs repeated - Hemoglobin of 7.6 on 08/30/2025 Moderate Chronic Malnutrition (present on admission) : Assessed - Severity based on ASPEN criteria as documented by the cad manager and is ordered for vitamin/mineral supplementation * Oz Flaherty RN - 08/30/2025 4:56 AM EST VSS. P failed void trial, Helton reinserted per order. Pt is drowsy most of time but still kept requesting pain meds . Decreased oral intake due to inability to use both arms and need 1:1 feed. However, pt mostly was sleeping during meal time. Pt reported having only one meal yesterday because of sleeping through meal time. Decreased urine production. Dr. Puentes made aware of. Will re-assess patient's needs for pain meds. Ignacio arms swelling. One loose BM overnight. PT/OT following * Shannan Arellano OT - 08/29/2025 5:19 PM EST OCCUPATIONAL THERAPY PROGRESS NOTE Rehabilitation Services - Inpatient Occupational Therapy Level of Care: Floor Interdisciplinary Recommendations OT Discharge rec: (Rehab) Movement Precautions: ROM, Bracing/Orthoses (RUE sling for comfort, LUE sling at all times, may remove briefly for gentle pendulums and for elbow/wrist/digit ROM) WB Status: Extremity Weight Bearing Status: Left Upper Extremity, Right Upper Extremity LUE Weight Bearing : (coffee cup weightbearing(5lb limit) ok to use for light ADLs) RUE Weight Bearing : NWB Activity and Mobility Recommendations: [x]Patient is at high risk for deconditioning. Please maximize independence in ADLs and encourage frequent mobility including: Daily mobility per [facility] mobility goals established, Out of bed to chair or commode only, Encourage out of bed activity as tolerated, Encourage participation in home exercise program, Recommend using mechanical lift for all out of bed transfers, Position change every 2 hours [x]Patient is at risk for pressure injury. Please limit sitting time to one hour on standard air cushion given patient???s inability to effectively reposition in chair. [x]Patient is at risk for falls. Please use chair alarm when out of bed. [x]Patient is at risk for delirium. Please consider implementing strategies to reduce risk including: OOB to chair 3 day for all meals Familiar pictures and items within view News or nonverbal music on during daytime Lights on during day with shades UP Frequent Reorientation to clock, calendar, and window Encourage participation with ADLs Encourage family presence at bedside *For questions please check the patient???s care team for the most updated OT contact information [x]Updated medical status including labs, radiology, procedures and medications since previous visit reviewed SUBJECTIVE: It's not that I'm unwilling I just can't take it Patient goal and desires: I just want this to be done with OBJECTIVE: CLIENT FACTORS: Mental Functions: Level of Consciousness: Alert Orientation Level: Oriented X4 Following Directions: Follows all directions without difficulty Success rate following directions: 100% of the time Patient Behaviors/Mood: Appropriate for situation Memory: Intact Attention to Tasks: Attends to task, Attends to conversation Safety Awareness: Full awareness of safety precautions, Full awareness of errors made, Full awareness of deficits (verbalizes full awareness of safety precautions/activity restrictions) Insight: (Fair insight into abilities/limitations) Problem Solving: Assistance required to implement solutions, Assistance required to generate solutions Behaviors: Alert Aphasia: None present Functional Communication: Intact OCCUPATIONS: Current Activities of Daily Living: Feeding: Maximal assistance (limited by pain and decreased ROM) Where Assessed - Feeding: Bed level Upper Body Dressing Assistance Required: Dependent Where Assessed-Upper Body ADLs: Chair ADLs grossly limited by impaired functional use of bilateral UE. Unable to effectively engage UE into tasks, limited by pain, edema, decreased ROM Functional Mobility Bed Mobility: Rolling: Activity does not occur Transfers: Sit to Stand: Activity does not occur Gait: Ambulation Assistance: Activity does not occur Balance: Sitting - Static: Supervision (able to achieve upright unsupported sitting in chair using abdominal& BLE flexion & environmental support of chair, maintains up to 5 seconds) Sitting - Dynamic: Contact guard Standing - Static: Activity does not occur Standing - Dynamic: Activity does not occur []Vital signs monitored and found to be within normal limits with exceptions noted in Flowsheets/detailed below Hemodynamic Response/Aerobic Capacity HR BP RR O2 RPE/SAEED REST Supine Sit Stand ACTIVITY RECOVERY Pain: 8/10 at rest. +/10 with activity. +/10 at recovery. Location: Shoulder Quality: sharp Intervention: Medication (See MAR), Breathing techniques, Emotional support, Reposition Limiting Symptoms: Pain Additional Tests/Measures: 08/29/25 1300 Therapeutic Exercises IP OT Therapeutic Exercise Group Left Elbow;Right Elbow;Left Forearm/Wrist;Right Forearm/Wrist Left Elbow Exercises Left Elbow Exercise Type Active Assissted;Elbow flexion;Elbow extension Left Elbow Exercise Comments x 3 reps Right Elbow Exercises Right Elbow Exercise Type Active Assisted;Elbow flexion;Elbow extension Right Elbow Exercise Comments x 3 reps Left Forearm/Wrist Exercises Left Forearm/Wrist Exercise Type Active;wrist flexion;wrist extension Left Forearm/Wrist Exercise Comments x 3 reps Right Forearm/Wrist Exercises Right Forearm/Wrist Exercise Type Passive;wrist extension;Active;wrist flexion Right Forearm/Wrist Exercise Comments x 3 reps Left Hand Exercise Left Hand Exercise Type Active;Finger extension;Finger flexion Left Hand Exercise Comments x3 reps Right Hand Exercise Right Hand Exercise Type Passive;Finger extension Right Hand Exercise Comments x 3 reps Patient declines LUE sling despite max education/verbalizing understanding, positioned with pillowsfor external support of shoulder joint. RUE positioned elevated with wrist/digits in neutral, though does not maintain this position despite external supports, self adjusting due to pain/discomfort. Team Communication: Communicated with [x]RN [x]MD [x]PT(cotreat[]) []CM RE: Patient status, concerns regarding edema, contraindications to elevation for edema management, inability to tolerate sling, inability to tolerate pendulums, R wrist drop/difficulty tolerating neutral positioning with external supports []Rodeo Clown utilized for session Intervention: Patient/Caregiver Education RE: Role of OT OT plan of care Discharge recommendations ADL strategies ROM Interventional ROM Pt left seated with all needs in reach, chair alarm for safety ASSESSMENT/CLINICAL IMPRESSION: Mayra Craft is a 74 y.o. female with chronic R rotator cuff arthropathy s/p R total shoulder arthroplasty 07/11/25 then conversion to R shoulder hemiarthroplasty with glenoid and humeral implant on 08/01/25 w/recent hospitalization 08/01-08/10 due to SOB w/CHF vs COPDE/PNA mucoid impaction, dced to SNF, who presents to occupational therapy during hospitalization after presenting on 08/19 with worsening b/l shoulder pain after fall at SNF 4 days prior to admission found to have L humeral Fx and RUE DVT. S/p R shoulder IR aspiration 08/22 with no culture growth.Patient currently inpatient with continued pain control. Pt demonstrates limited progress with therapy, given ongoing pain and edema. Able to tolerate ~3 reps of active assisted vs passive range of motion exercises as above. Is unable to tolerate positioning in sling as recommended by ortho team, and is unable to tolerate pendulum exercises. She is able to activate her call fuller and attempt to adjust bed linens, but requires max - total assist for all self-care, most limited by bilateral UE orthopedic injuries, pain, edema, and ROM/WB restrictions. 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 Due to pt current impairments and their impact on occupational engagement, pt will most benefit from d/c to interdisciplinary rehab. Given patient's limited ability to tolerate therapy due to pain and edema, contacted interdisciplinary team regarding next steps. Acute OT will continue to follow andprogress per intervention plan. Treatment Plan: ADL retraining, Balance training, Bed mobility, Fine motor coordination activities, Functional mobility training, IADL retraining, Patient/family education, Upper extremity strengthening, Upper extremity ROM Patient agrees with the above goals and is willing to participate in the rehabilitation program: Yes Time: 4241-4016 Occupational Therapist Name: Shannan Arellano OT License #[id number] Occupational Therapist Pager: [phone] * Corrina Walsh, RD - 08/29/2025 3:20 PM EST NUTRITION FOLLOW UP NOTE SUBJECTIVE: Patient frustrated with difficulty eating/needing assistance with meals. Reports PO in house consisting of 3 meals/day, consuming about 50% of meals. Has had a few ensures but dislikes the Vanilla sohas not been drinking them if not getting chocolate. 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 OBJECTIVE: Height: 68 in Admit weight: 56.7 kg (?source, 08/20)*anthros Current weight: 59.6 kg (08/29, bed scale) Recent weight: 58.7 kg (bed, 08/21) Pertinent Meds: ascorbic acid, suboxone. calcium carbonate, 25mcg vitamin D3, ferrous sulfate, lasix (held), levothyroxine, creon, omeprazole, multivitamin w/ minerals, omeprazole, polyethylene glycol, senokot, Others noted. Recent Labs 08/29/25 0624 NA 131* K 3.7 CL 95* CO2 33* BUN 21* CREATININE 0.40 GLUCOSE 112* CALCIUM 7.8* MG 2.0 PHOS 2.8 Corrected Calcium: 9.24 Calculated using: - Calcium: 7.8 (08/29/2025) - Albumin: 2.2 (08/29/2025) No results for input(s): ALT , AST , ALKPHOS , BILITOT , TRIG in the last 72 hours. No results found for: [id number] Food Allergies: NKFA Diet Order: regular Oral supplements: Ensure plus high protein TID GI/Abdomen: last BM 08/29 (soft, large, mucousy), soft/rounded abdomen Skin: per 08/21 wound care eval: Bilateral heels are intact. Sacral coccygeal is intact/bilateral buttocks intact, full thickness to R elbow. Extremities: +2 BUE edema Nutrition Focused Physical Exam: Musculature Assessment (08/29/25) Temporalis: Moderate loss Clavicle Region: Moderate loss Shoulder/Acromion Process Region: Moderate loss Scapular Region: Moderate loss Dorsal Hand Region: Moderate loss Anterior Thigh/Patellar Region: Not Assessed Posterior Calf Region: Not Assessed Comments: Adipose Assessment (08/29/25) Orbital Fat: Moderate Loss Buccal Fat: Triceps: Moderate Loss Thoracis/Lumbar Region: Comments: ASSESSMENT: [x] Moderate Malnutrition in the Context of Chronic Illness As evidenced by: 75% or less of estimated energy needs for 1 or more months Muscle Loss: moderate depletion Fat Loss: moderate depletion Present on Admission?: yes Supporting criteria: reported wt loss of ~25 lb x 6 months, not reflected in chart wt hx Estimated Nutrition Needs: Calories: 8804-3129 kcal (30-35 kcal/kg) Protein: 85-102 g (1.5-1.8 g/kg) *iso full thickness wound Fluids: 1087-4880 mL (30-35 mL/kg) Estimated Needs Calculated Usin.7 kg (125 lb) Specifics: 74 y.o. 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 S/p R shoulder IR aspiration 08/22 with no culture growth. Patient currently inpatient with continued pain control. Nutrition consulted for malnutrition, now able to confirm malnutrition diagnosis on visit today with NFPE completed, see malnutrition diagnosis for reasons above. 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 Only likes chocolate ensure, will change order and send TID. Encouragedconsumption of high calorie/protein foods and small frequent meals as tolerated. Appreciate measured weights at least 3x weekly to monitor, noted wt stable in the last week. AM labs notable for low normal K+, repletion recs below. Continue to monitor lytes and address prn. Consider checking vitaminD level to confirm proper supplementation dosage. Nutrition to follow. Interventions / Recommendations: Continue with diet as ordered, encourage PO intake as tolerated Small frequent meals high in kcal/protein Assist with meal ordering and set up Consider soft foods Oral nutrition supplements: Ensure Plus HP TID with meals Micronutrient recommendations: Continue multivitamin w/ minerals Consider checking vitamin D w/ same day CRP to interpret Monitor lytes, replete prn Trend weights Nutrition to continue to follow, please message or page [phone] with any questions/concerns Signed by: Corrina Walsh, MS, RD, LDN, CNSC 08/29/25 3:20 PM * Eloy Gomez MD - 08/29/2025 8:45 AM EST HOSPITAL MEDICINE PROGRESS NOTE Patient: Mayra Craft Admit Date: 08/19/2025 LOS: 9 days Primary Care Physician: Vanessa Culver MD Interval Events: None reported. Subjective: Patient reports no chest pain or dyspnea. There are no fevers or chills. She notes continued upper extremity pain. There is no abdominal pain. Physical Exam Temp: [98.1 ??F (36.7 ??C)-98.4 ??F (36.9 ??C)] 98.4 ??F (36.9 ??C) Heart Rate: [65-88] 75 Resp: [16-18] 18 BP: (99-132)/(46-75) 124/71 SpO2: [90 %-100 %] 97 % Stool Assessment Stool Occurrence: 1 Bowel Incontinence: Yes Stool Amount: Large Stool Appearance: Soft, Mucous Stool Color: Brown Last BM Date: 08/29/25 Stool Amount: Large Stool Appearance: Soft, Mucous Stool Color: Brown Last BM Date: 08/29/25 0-10 Pain Score : 8 (08/29/2025 6:27 AM) Pain Location: Arm; Hand; Elbow (08/28/2025 8:00 AM) Pain Orientation: Right; Left (08/28/2025 8:00 AM) General: Appears uncomfortable. HEENT: No scleral icterus. No conjunctival injection. Pulmonary: No increased work of breathing, on 4 L NC. Lungs with no wheezing, rales. Cardiovascular: Regular rate and rhythm. No murmurs, gallops, or rubs. Abdominal: Soft, mildly distended, non-tender to palpation. Extremities: No lower extremity edema. Warm and well perfused. MSK: Pt with large area of bruising around left arm (within marked area) and improving with ROM intact at shoulder, limited at elbow due to pain. LUE with improved swelling with compression with cori wrapping. RUE with 2+ pitting edema in the proximal arm. Mild tenderness to palpation over right upper arm with c/d/I incision scar anteriorly + preserved ROM at shoulder, ROM limited over elbow due to pain. R wrist with bruising over R wrist, pain with flexion, improvement on extension--ROM intact though with pain. Neuro: Vision and hearing grossly intact. Face symmetric. Moving all four extremities purposefully. Psych: Alert and oriented. Normal affect. Lines: ILIANA, carlos in place Data: I have reviewed the relevant labs, radiology studies, tracings, medical records, and they are notable for Results for orders placed or performed during the hospital encounter of 08/19/25 (from the past 24 hours) CBC Result Value Ref Range WBC 6.35 4.00 - 10.00 K/uL RBC 2.60 (L) 3.90 - 5.20 M/uL Hemoglobin 7.3 (L) 11.2 - 15.7 g/dL Hematocrit 23.1 (L) 34.0 - 45.0 % MCV 89 82 - 98 fL MCH 28.1 26.0 - 32.0 pg MCHC 31.6 (L) 32.0 - 37.0 g/dL RDW 15.4 10.5 - 15.5 % RDW-SD 49.5 (H) 35.1 - 46.3 fL Platelet Count 245 150 - 400 K/uL Nucleated RBC 0 <=0 #/100 WBC C-Reactive Protein Result Value Ref Range C-Reactive Protein (CRP) 106.0 (H) 0.0 - 5.0 mg/L Renal Function Panel Result Value Ref Range Sodium 131 (L) 135 - 147 mmol/L Potassium 3.7 3.5 - 5.4 mmol/L Chloride 95 (L) 96 - 108 mmol/L Total CO2/Bicarbonate 33 (H) 22 - 32 mmol/L Anion Gap 3 (L) 4 - 16 mmol/L BUN 21 (H) 6 - 20 mg/dL Creatinine, Blood 0.40 0.40 - 1.10 mg/dL Glucose, Blood 112 (H) 70 - 100 mg/dL Calcium 7.8 (L) 8.4 - 10.3 mg/dL Albumin, Blood 2.2 (L) 3.5 - 5.2 g/dL Phosphorus 2.8 2.7 - 4.5 mg/dL Magnesium, Blood 2.0 1.6 - 2.6 mg/dL XR Humerus 2+ VW Right Result Date: 08/28/2025 EXAMINATION: XR HUMERUS 2+ VW RIGHT INDICATION: c/f R humerus pathology given r wrist drop; TECHNIQUE: Frontal view radiographs of the right humerus. COMPARISON: Radiographs of the right shoulder from 19 August 2025. FINDINGS: Again seen right shoulder arthroplasty hardware without evidence of hardware loosening. There is persistent anterior, medial, and inferior displacement of the right humeral head component relative to the glenoid. No fracture. If there remains clinical concern for nerve compression, please consider MRI for further evaluation. XR Chest 1 VW Portable Result Date: 08/28/2025 EXAMINATION: XR CHEST 1 VW PORTABLE INDICATION: incidentally noted LLL consolidation; TECHNIQUE: Chest portable AP COMPARISON: Multiple prior studies, most recent chest radiograph dated 08/23/2025. Retrocardiac and right basilar opacifications appear grossly similar and are better assessed by therecent chest CT. Diffuse reticular opacities are also better assessed by the previous chest CT, probably representing extensive emphysema. Superimposed inflammation is possible. Otherwise no significant interval change in the appearance of the chest. Kristopher Hickey MD, electronically signed on Aug 28 2025 04:02PM XR Shoulder 2+ VW Left Result Date: 08/28/2025 EXAMINATION: XR SHOULDER 2+ VW LEFT INDICATION: pt with known L proximal humerus comminuted fracture with significant edema + continued pain, XR for worsening of fracture; TECHNIQUE: Frontal and Grashey view radiographs of the left shoulder. COMPARISON: Radiographs of the left shoulder from 19 August 2025. FINDINGS: Left-sided dual lead cardiac device. Again seen comminuted and impacted fracture of the left proximal humerus involving the humeral head and neck with interval callus formation. Noevidence of dislocation. No new fracture. Left lower lung opacity seen on frontal view. Recommend further evaluation with dedicated chest x-ray. RECOMMENDATION(S): Chest x-ray. NOTIFICATION: The findingsand recommendations above were discussed with, and acknowledged by Dr. Mayra Craft by Dr. Sunni Pham, using [employer] Secure Chat on 08/28/2025 at 3:24 pm, 2 minutes after discovery of the findings. ECG 12 lead Result Date: 08/28/2025 Sinus rhythm with premature atrial depolarizations When compared with ECG of 23-Aug-2025 00:35, No significant change was found Temporary Access Catheter Placement Result Date: 08/27/2025 INDICATION: Inability to obtain or maintain peripheral venous access COMPARISON: None. TECHNIQUE: OPERATORS: Dr. Mckeon, attending interventional radiologist performed the procedure. ANESTHESIA: Local only Fluoro time 15 seconds Radiation Dose: <1 mGY PROCEDURE: PROCEDURE DETAILS: Following the explanation of the risks, benefits and alternatives to the procedure, written informed consent was obtained from the patient. The patient was then brought to the angiography suite and placed supine on the exam table. A pre-procedure time-out was performed per [facility] protocol. The right neck was preppedand draped in the usual sterile fashion. Under continuous ultrasound guidance, the patent right internal jugular vein was compressible and accessed using a micropuncture needle. Permanent ultrasound images were obtained before and after intravenous access, which confirmed vein patency. Subsequentlya Nitinol wire was passed into the IVC using fluoroscopic guidance. The needle was exchanged for a micropuncture sheath. The Nitinol wire was removed and an 0.035 wire was advanced into the IVC. A triple lumen central catheter was advanced over the wire into the superior vena cava with the tip in the cavoatrial junction. All 3 access ports were aspirated, flushed and capped. The catheter was secured to the skin with a 0 silk suture and sterile dressings were applied. Final spot fluoroscopic image demonstrating good alignment of the catheter and no kinking. The patient tolerated the procedure well without immediate complications. FINDINGS: Patent right internal jugular vein. Final fluoroscopic image showing the catheter tip terminating in the distal superior vena cava. Successful placement of a 7 Fr 16 cm triple-lumen temporary central venous catheter via the right internal jugular venous approach. The tip of the catheter terminates in the distal superior vena cava. The catheter is ready for use. Sammi Mckeon MD, electronically signed on Aug 27 2025 01:44PM XR Abdomen Portable Result Date: 08/25/2025 INDICATION: LUQ abdominal pain; TECHNIQUE: Portable supine abdominal radiograph was obtained. COMPARISON: None Nonspecific bowel gas pattern with gas noted throughout nondilated small bowel loops in the midlineand: To the level of rectum. There is a single dilated loop of bowel probably small bowel loop in the left upper quadrant suggestive of focal ileus or could be splenic flexure. Moderate stool burden in the right side of the colon. Suboptimal study for evaluation of free air however no gross pneumoperitoneum. There are degenerative changes in the spine Kate Lugo MD, electronically signed on Aug 25 2025 03:52PM XR Hand 3+ VW Right Result Date: 08/24/2025 EXAMINATION: XR WRIST 3+ VW RIGHT; XR HAND 3+ VW RIGHT INDICATION: pt with fall and continued r wrist and hand pain.; TECHNIQUE: Frontal, oblique, and lateral view radiographs of right hand and wristCOMPARISON: None available. No acute fractures or dislocations are seen. Mild degenerative changes of the first carpometacarpaljoint in setting of osteophytosis. Mild negative ulnar variance. No bone erosion or periostitis. Nosuspicious lytic or sclerotic lesion. No soft tissue calcifications or radiopaque foreign body. No significant carpal bone malalignment. BY ELECTRONICALLY SIGNING THIS REPORT, I THE ATTENDING PHYSICIAN ATTEST THAT I HAVE REVIEWED THE IMAGES FOR THE ABOVE PROCEDURE(S) AND AGREE WITH THE FINDINGS DOCUMENTED. Geeta Hummel MD, electronically signed on Aug 24 2025 05:46PM XR Wrist 3+ VW Right Result Date: 08/24/2025 EXAMINATION: XR WRIST 3+ VW RIGHT; XR HAND 3+ VW RIGHT INDICATION: pt with fall and continued r wrist and hand pain.; TECHNIQUE: Frontal, oblique, and lateral view radiographs of right hand and wristCOMPARISON: None available. No acute fractures or dislocations are seen. Mild degenerative changes of the first carpometacarpaljoint in setting of osteophytosis. Mild negative ulnar variance. No bone erosion or periostitis. Nosuspicious lytic or sclerotic lesion. No soft tissue calcifications or radiopaque foreign body. No significant carpal bone malalignment. BY ELECTRONICALLY SIGNING THIS REPORT, I THE ATTENDING PHYSICIAN ATTEST THAT I HAVE REVIEWED THE IMAGES FOR THE ABOVE PROCEDURE(S) AND AGREE WITH THE FINDINGS DOCUMENTED. Geeta Hummel MD, electronically signed on Aug 24 2025 05:46PM ECG 12 lead Result Date: 08/24/2025 Sinus rhythm with premature atrial depolarizations Inferior infarct , age undetermined Abnormal ECGWhen compared with ECG of 21-Aug-2025 22:25, Inferior infarct is now present Chest 1 VW Portable Result Date: 08/23/2025 EXAMINATION: XR CHEST 1 VW PORTABLE INDICATION: Hypoxia, eval pneumonia, fluid overload, pneumothorax; TECHNIQUE: AP chest COMPARISON: Chest radiograph dated 08/19/2025 In comparison to study of August 19, there are similar bibasilar and retrocardiac opacifications, likely representing pneumonia. Similar diffuse increased interstitial opacities may represent underlying mild pulmonary edema and severe emphysema. No pleural effusion or pneumothorax. Cardiac silhouette size is normal. Similar position of the left chest wall pacer device leads. Left proximal humerus fracture is again noted. Guy Callahan MD, electronically signed on Aug 23 2025 07:31AM ECG 12 lead, to be obtained, dyspnea Result Date: 08/22/2025 Sinus rhythm with premature atrial depolarizations Right axis deviation When compared with ECG of 19-Aug-2025 17:25, Questionable change in QRS axis ST no longer elevated in Anterior leads MSK Injection / Aspiration - US Result Date: 08/22/2025 EXAMINATION: IR MSK INJECTION / ASPIRATION - US INDICATION: continued swelling of R shoulder, elevated CRP; TECHNIQUE: The risks, benefits, and alternatives were explained to the patient and written informed consent obtained. A pre- procedure timeout confirmed three patient identifiers. Under ultrasound guidance, an appropriate spot was marked. The area was prepared and draped in standard sterile fashion. 4 cc of 1% Lidocaine was used to achieve local anesthesia. Under intermittent ultrasound guidance, a 22-gauge spinal needle was advanced into the posterior aspect of the shoulder joint. Aspiration trail resulted in dry tap. Lavage of the joint was performed with 2-3 CC of joint reddish fluid was obtained. The needle was removed, hemostasis achieved, and a sterile bandage applied. The patient tolerated the procedure well and left the department in good condition. There were no immediate complications. COMPARISON: None FINDINGS: Again seen is cortical irregularity in keeping with known p roximal left humeral fracture. 1. Imaging Findings - as above. 2. Procedure - Uneventful ultrasound-guided lavage with fluid aspiration, which was sent for microbiology. I Dr. Duran personally supervised the Resident/Fellowduring the landrum components of the above procedure and I have reviewed and agree with the Resident/Fellow findings/dictation. BY ELECTRONICALLY SIGNING THIS REPORT, I THE ATTENDING PHYSICIAN ATTEST THAT I HAVE REVIEWED THE IMAGES FOR THE ABOVE PROCEDURE(S) AND AGREE WITH THE FINDINGS DOCUMENTED. Adarsh Duran MD, electronically signed on Aug 22 2025 03:47PM CT Shoulder Left Without Contrast Result Date: 08/21/2025 EXAMINATION: CT SHOULDER LEFT WO CONTRAST INDICATION: shoulder pain; TECHNIQUE: MDCT images of the left shoulder were obtained without contrast. Coronal and sagittal reformats were obtained. DOSE: Acquisition sequence: 1) Spiral Acquisition 5.0 s, 23.0 cm; CTDIvol = 13.3 mGy (Body) DLP = 306.2 mGy-cm Total DLP (Body) = 306 mGy-cm COMPARISON: Radiograph of left shoulder dated August [address] pulmonary angiography dated August 19. FINDINGS: BONES: Mild diffuse osseous demineralization. There is a complete transverse comminuted displaced fracture involving the neck of the humerus. The fracture line is seen extending into inferior articular surface of the humeral head as well as the greater t uberosity. There is almost half shaft width anterior displacement of the distal fracture fragment with mild superior migration (approximately 1.9 cm) and impaction. The glenohumeral alignment is well-maintained. No suspicious focal osseous lesion is seen. Note is made of compression fracture of indeterminate age T1 vertebral body and possible superior endplate compression of T2. Visualized ribs do not show any overt fracture, however the evaluation is limited by subtle motion artifacts. SOFT TISSUES: Mild soft tissue edema surrounding the shoulder joint. No localized fluid collection or any hematoma formation. No effusion or evidence of tendon entrapment. No disproportionate muscle atrophy.OTHER: Note is made of severe centrilobular emphysema in visualized lungs. Consolidative opacity inthe left lower lobe is partially visualized. Few nodular opacity in left upper lung. 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 These findings are better evaluated in recent CT pulmonary angiography 1. Complete transverse comminuted displaced, impacted fracture involving neck of the humerus extending into inferior articular surface humeral head and greater tuberosity 2. Compression fracture of indeterminate age T1 vertebral body and possible superior endplate compression of T2. 3. Consolidative opacity in the left lower lobe is partially visualized. Few nodular opacity in left upper lung. These findings are better evaluated in recent CT pulmonary angiography. If clinically indicated consider CT chest follow-up in 3 months. BY ELECTRONICALLY SIGNING THIS REPORT, I THE ATTENDING PHYSICIAN ATTEST THAT I HAVE REVIEWED THE IMAGES FOR THE ABOVE PROCEDURE(S) AND AGREE WITH THE FINDINGS DOCUMENTED. Guy Hummel MD, electronically signed on Aug 21 2025 10:44AM ECG 12 lead Result Date: 08/21/2025 Sinus rhythm with premature atrial depolarizations Minimal voltage criteria for LVH, may be normal variant ( Morris product ) Nonspecific T wave abnormality Inferior GA - indeterminate age Abnormal ECG When compared with ECG of 07-Aug-2025 13:31, premature ventricular depolarizations are no longerpresent premature atrial depolarizations are now present ST elevation now present in Anterior leads Shoulder 2+ Vw Left Result Date: 08/20/2025 INDICATION: s/p fall, surgery, pain, swelling ?fx; TECHNIQUE: Three views of the left shoulder COMPARISON: None. FINDINGS: A comminuted and impacted fracture of the left proximal humerus involves thehumeral head and surgical neck. No dislocation. Glenohumeral joint is preserved. Mild joint space narrowing of the acromioclavicular joint. Imaged left lung demonstrates chain sutures from prior leftupper segmentectomy. Generator pack for a pacer is seen in the left upper chest wall. Comminuted and impacted left proximal humeral fracture involving the humeral head and surgical neck. No dislocation. Akanksha Ríos MD, electronically signed on Aug 20 2025 11:03AM US Upper Extremity Venous Bilateral Result Date: 08/20/2025 EXAMINATION: US UPPER EXTREMITY VENOUS BILATERAL INDICATION: Edema, pain/tenderness TECHNIQUE: Greyscale and Doppler evaluation was performed on the bilateral upper extremity veins. COMPARISON: None. FINDINGS: There is normal flow with respiratory variation in the bilateral subclavian veins. The right internal jugular vein is patent, shows normal color flow, spectral doppler, and compressibility. The right brachial veins are patent and show compressibility. The right axillary vein is not compressible and does not show normal [id number] color flow, consistent with nonocclusive thrombus in the right axillary vein. The rest of the exam was not performed as the patient was unable to toleratethe exam due to pain. 1. Nonocclusive deep vein thrombus of the right axillary vein. 2. This study only assessed bilateral subclavian, right internal jugular, right brachial, and right axillary veins. The rest of upper extremities were not assessed as the patient was unable to tolerate the exam due to pain. NOTIFICATION: The findings were discussed with, and acknowledged by Dr. Albin Puentes by Dr. Sherry Valladares, using [employer] Secure Chat on 08/20/2025 at 9:53 am, 3 minutes after discovery of the findings. BY ELECTRONICALLY SIGNING THIS REPORT, I THE ATTENDING PHYSICIAN ATTEST THAT I HAVE REVIEWED THE IMAGES FOR THE ABOVE PROCEDURE(S) AND AGREE WITH THE FINDINGS DOCUMENTED. Sherry Gomez MD, electronically signed on Aug 20 2025 10:38AM XR Chest 1 Vw Portable Result Date: 08/19/2025 EXAMINATION: XR CHEST 1 VW PORTABLE INDICATION: sob, cough /pna; TECHNIQUE: Semi-upright AP view ofthe chest COMPARISON: CTA chest 19 August 2025 at 18:44 and 07 August 2025, chest radiograph 07 August 2025 FINDINGS: Left-sided pacer with leads in the right atrium and right ventricle, unchanged.Mild cardiomegaly is similar. Mediastinal and hilar contours are unchanged. No pulmonary edema. Diffuse increased interstitial opacities are again noted and related to underlying severe emphysema. Patchy airspace opacities are again noted in the lower lobes which is concerning for pneumonia. No pleural effusion or pneumothorax. No acute osseous abnormalities. Partially imaged comminuted left proximal humeral fracture. Status post right shoulder arthroplasty with the humeral head component demonstrating anterior dislocation. Contrast from recent CT examination is seen in the renal collectingsystems bilaterally. Patchy bilateral lower lobe opacities suggesting pneumonia as seen on prior CT. Partially imaged comminuted left proximal humeral fracture and anteriorly dislocated humeral component of a right shoulder arthroplasty. Akanksha Ríos MD, electronically signed on Aug 19 2025 10:25PM XR Shoulder 2+ Vw Right Result Date: 08/19/2025 INDICATION: s/p fall, surgery, pain, swelling ?fx; TECHNIQUE: Right shoulder, three views COMPARISON: CT chest 07 August 2025 and right shoulder radiographs 14 August 2025 FINDINGS: Status post right shoulder arthroplasty with persistent anterior, medial and inferior displacement of the humeral head component relative to the glenoid. No acute fracture. Acromioclavicular joint demonstrates milddegenerative changes. Fragmentation of the acromion appears chronic. No periarticular soft tissue calcifications. Severe emphysema is noted in the imaged right lung. 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 No acute fracture. Akanksha Ríos MD, electronically signed on Aug 19 2025 10:25PM XR Elbow 3+ VW Right Result Date: 08/19/2025 INDICATION: elbow pain; TECHNIQUE: AP and lateral views of the elbows bilaterally COMPARISON: None.FINDINGS: On the left, no acute fracture or dislocation. No elbow joint effusion. Mild degenerativechanges of the humeroulnar joint. No concerning lytic or sclerotic osseous abnormality. No embeddedradiopaque foreign body or soft tissue calcification. On the right, no acute fracture or dislocation. No elbow joint effusion. Mild degenerative changes of the ulnohumeral joint. No suspicious lytic or sclerotic osseous abnormality. Mild soft tissue irregularity is seen along the dorsal aspect of th e elbow. No acute fracture or dislocation involving either elbow. Akanksha Ríos MD, electronically signed on Aug 19 2025 10:24PM XR Elbow 3+ VW Left Result Date: 08/19/2025 INDICATION: elbow pain; TECHNIQUE: AP and lateral views of the elbows bilaterally COMPARISON: None.FINDINGS: On the left, no acute fracture or dislocation. No elbow joint effusion. Mild degenerativechanges of the humeroulnar joint. No concerning lytic or sclerotic osseous abnormality. No embeddedradiopaque foreign body or soft tissue calcification. On the right, no acute fracture or dislocation. No elbow joint effusion. Mild degenerative changes of the ulnohumeral joint. No suspicious lytic or sclerotic osseous abnormality. Mild soft tissue irregularity is seen along the dorsal aspect of th e elbow. No acute fracture or dislocation involving either elbow. Akanksha Ríos MD, electronically signed on Aug 19 2025 10:24PM CT Angiogram Chest PE : Arteriogram Addendum Date: 08/19/2025 ADDENDUM The patient is status post right shoulder arthroplasty (not reverse shoulder arthroplasty). The anterior dislocation of the humeral head component relative to the glenoid appears similar compared to the prior CTA chest from August 07, 2025. Akanksha Ríos MD, electronically signed on [id number] 08:47PM Result Date: 08/19/2025 EXAMINATION: CTA CHEST WITH CONTRAST INDICATION: pt w/ sob, chest pain, tachycardia; TECHNIQUE: Axial multidetector CT images were obtained through the thorax after the uneventful administration of intravenous contrast including reformatted coronal, sagittal, and oblique and axial maximal intensityprojection (MIP) images. DOSE: Acquisition sequence: 1) Stationary Acquisition 0.5 s, 0.5 cm; CTDIvol = 3.0 mGy (Body) DLP = 1.5 mGy-cm 2) Stationary Acquisition 2.0 s, 0.5 cm; CTDIvol = 12.1 mGy (Body) DLP = 6.1 mGy-cm 3) Spiral Acquisition 4.1 s, 30.6 cm; CTDIvol = 8.2 mGy (Body) DLP = 252.0 mGy-cm Total DLP (Body) = 260 mGy- cm COMPARISON: CTA chest 07 August 2025 FINDINGS: VASCULATURE: Main pulmonary artery is borderline enlarged at 3.1 cm. No filling defects to the subsegmental level to indicate a pulmonary embolism. Ascending aorta demonstrates fusiform dilatation to 4.2 cm and the descending thoracic aorta is dilated up to 3.4 cm, as seen previously. No aortic dissection or intramural hematoma. HEART: Mild cardiomegaly. Pacing leads terminate within the right atrium and right ventr icle. Moderate coronary artery calcifications. No significant pericardial effusion. AXILLA, MARCELL, AND MEDIASTINUM: No lymphadenopathy or mass. The esophagus is patulous which can be seen with esophageal dysmotility. PLEURAL SPACES: No pleural effusion or pneumothorax. LUNGS: Heterogeneous consolidative opacities in both lower lobes can be seen with pneumonia. Severe centrilobular emphysema is again demonstrated. AIRWAYS: Airway wall thickening suggesting inflammation is noted. Central airways are patent to the segmental bronchial level. BASE OF NECK: 5 mm rim calcified thyroid nodule is notedwhich does not require specific sonographic follow-up. ABDOMEN: Visualized upper abdomen unremarkable. BONES: A comminuted left proximal humeral fracture is incompletely imaged. Status post right reverse shoulder arthroplasty with anterior subluxation/dislocation of the hardware relative to the glenoid. A subacute fracture of the sternum is noted (602:74). Compression deformities of the T1 and T11 vertebral bodies are unchanged. SOFT TISSUES: Soft tissue stranding is seen within the left shoulder secondary to the humeral fracture. 1. No pulmonary embolism or acute aortic pathology. 2. Severe emphysema with mild dilatation of thepulmonary artery measuring up to 3.1 cm, unchanged, which can be seen with pulmonary arterial hypertension. 3. Mild dilatation of the ascending and descending thoracic aorta, unchanged. See recommendations below. 4. Heterogeneous consolidative opacities in both lower lobes may reflect pneumonia. 5.Acute, comminuted left proximal humeral fracture. 6. Status post reverse right shoulder arthroplasty with anterior subluxation/dislocation of the humeral component relative to the glenoid. 7. Chroniccompression deformities of T1 and T11 vertebral bodies. RECOMMENDATION(S): Follow-Up Imaging: Thoracic aorta 4.0 - 4.4 cm in diameter - if stable findings at 12 months or interval increase in diameter is < 3 mm, consider follow-up with ECG-gated chest CTA in 2 years. Management recommendations for follow-up of thoracic aortic aneurysm are based on existing literature and multidisciplinary consensus document of our institution, including Cardiology, Vascular Surgery, and Cardiac Surgery and it is specifically designed for this program. Siminelharmeet EM, et al. ACC/AHA Guideline for the Diagnosis and Management of Aortic Disease: A Report of the [place] [employer] College ofCardiology Joint Committee on Clinical Practice Guidelines. Circulation 2022; 146:t183-e552. Erbel R, et al. ESC Guidelines on the diagnosis of thoracic and abdominal aorta of the adult. Eur Heart J 2014;35:7040-3333. Cindy EL, et al. The Society of Vascular Surgery practice guidelines on the care of patients with an abdominal aortic aneurysm. J Vasc Surg 2018;67:2-77. Joseph Dunham, et al. Management of Descending Thoracic Aortic Disease: Clinical Practice Guidelines of the Society of Vascular Surgery. Eur J Vasc Endovasc Surg 2017;53:4-52. Akanksha Ríos MD, electronically signed on Aug 19 2025 07:13PM US Lower Extremity Venous Left Result Date: 08/19/2025 EXAMINATION: US LOWER EXTREMITY VENOUS LEFT INDICATION: Left lower extremity pain and edema. TECHNIQUE: Mullen scale, color, and spectral Doppler evaluation was performed on the left lower extremity veins. The patient could not tolerate evaluation of the calf veins. COMPARISON: None. FINDINGS: There is normal compressibility, color flow, and spectral doppler of the left common femoral, femoral, andpopliteal veins. The patient was unable to tolerate evaluation of the calf veins. There is normal respiratory variation in the common femoral veins bilaterally. No evidence of medial popliteal fossa ([place]) cyst. Unable to evaluate the calf veins, but there is no evidence of deep venous thrombosis in the other left lower extremity veins. BY ELECTRONICALLY SIGNING THIS REPORT, I THE ATTENDING PHYSICIAN ATTEST THAT I HAVE REVIEWED THE IMAGES FOR THE ABOVE PROCEDURE(S) AND AGREE WITH THE FINDINGS DOCUMENTED. Geo Ríos MD, electronically signed on Aug 19 2025 07:17PM CT Cervical Spine Without Contrast Result Date: 08/19/2025 EXAMINATION: CT CERVICAL SPINE WO CONTRAST INDICATION: s/p fall; TECHNIQUE: Contiguous axial imagesobtained through the cervical spine without intravenous contrast. Coronal and sagittal reformats were reviewed. DOSE: Acquisition sequence: 1) Sequenced Acquisition 18.0 s, 18.0 cm; CTDIvol = 50.2 mGy (Head) DLP = 903.1 mGy-cm 2) Spiral Acquisition 5.7 s, 21.2 cm; CTDIvol = 24.5 mGy (Body) DLP = 518.9 mGy-cm Total DLP (Body) = 519 mGy-cm Total DLP (Head) = 903 mGy-cm Note: This radiation dose report was copied from accession #[id number] (CT HEAD WO CONTRAST) COMPARISON: CT chest 07 August 2025 FINDINGS: Reversal of the normal cervical lordosis is demonstrated. No traumatic malalignment. R otation of C1 on C2 is likely due to head positioning within the scanner. No definite acute fractures are identified. There is moderate anterior height loss of the T1 vertebral body, unchanged from prior CT from July 2025. [id number] multilevel degenerative changes with intervertebral disc space narrowing, endplate sclerosis, and osteophyte formation. No high-grade central canal stenosis. Mild multilevel neural foraminal stenosis without high-grade narrowing.There is no prevertebral edema. Stranding in the left supraclavicular soft tissues relates to a left proximal humeral fractureas seen on the biochemistry teacher views. Severe emphysema is noted in the left lung apex. Thyroid gland demonstra kasi a rim calcified 5 mm nodule on the right which does not require dedicated imaging follow-up. 1. No acute cervical spine fracture or traumatic malalignment. 2. Left proximal humeral fracture imaged on the biochemistry teacher view. 3. Chronic compression deformity of the T1 vertebral body. Akanksha Ríos MD, electronically signed on Aug 19 2025 06:57PM CT Head Without Contrast Result Date: 08/19/2025 EXAMINATION: CT HEAD WO CONTRAST [id number] CT BID-HEAD INDICATION: s/p fall; TECHNIQUE: Contiguous axial images of the brain were obtained without contrast. Coronal and sagittal reformations as well as bone algorithm reconstructions were provided and reviewed. DOSE: Acquisition sequence: 1) Sequenced Acquisition 18.0 s, 18.0 cm; CTDIvol = 50.2 mGy (Head) DLP = 903.1 mGy-cm 2) Spiral Acquisition 5.7 s, 21.2 cm; CTDIvol = 24.5 mGy (Body) DLP = 518.9 mGy-cm Total DLP (Body) = 519 mGy-cm Total DLP (Head) = 903 mGy-cm COMPARISON: None. FINDINGS: There is no evidence of fracture, acute large territorial infarction, hemorrhage, edema, or mass. There is prominence of the ventricles and sulci suggestive of involutional changes. Moderate periventricular and subcortical white matter hypodensitiesare nonspecific, but likely reflect the sequela of chronic microvascular infarction. The visualizedportion of the paranasal sinuses, mastoid air cells, and middle ear cavities are clear. Patient is status post bilateral lens replacements. 1. No acute intracranial abnormality. Akanksha Ríos MD, electronically signed on Aug 19 2025 06:49PM XR Shoulder 2+ VW Right Result Date: 08/14/2025 EXAMINATION: XR SHOULDER 2+ VW RIGHT INDICATION: R Shoulder Pain; TECHNIQUE: Three views right shoulder COMPARISON: 01 August 2025 Redemonstrated reverse right shoulder arthroplasty with grossly intact hardware and maintained alignment. There is no acute fracture.. Slight interval decrease in streaky opacities in the right upperlung zone. Mild degenerative changes at the glenohumeral joint.. Kate Brittney MD, electronically signed on Aug 14 2025 02:56PM CT Angiogram Chest PE : Arteriogram Result Date: 08/08/2025 EXAMINATION: CTA CHEST WITH CONTRAST INDICATION: patient with new 02; TECHNIQUE: Axial multidetector CT images were obtained through the thorax after the uneventful administration of intravenous contrast including reformatted coronal, sagittal, and oblique and axial maximal intensity projection (MIP) images. DOSE: Acquisition sequence: 1) Sequenced Acquisition 0.5 s, 0.2 cm; CTDIvol = 7.2 mGy (Body) DLP = 1.4 mGy-cm 2) Stationary Acquisition 3.7 s, 0.2 cm; CTDIvol = 61.8 mGy (Body) DLP = 12.4 mGy-cm 3) Spiral Acquisition 5.4 s, 35.0 cm; CTDIvol = 12.6 mGy (Body) DLP = 431.5 mGy-cm Total DLP (Body) = 445 mGy-cm COMPARISON: Outside CT chest available in the [facility] 28 May 2025 FINDINGS: VASCULATURE: No pulmonary embolism to the subsegmental level. The ascending thoracic aorta is mildly dilated measuring up to 4.1 cm. There are mild atherosclerotic calcifications of the thoracic aorta. HEART: Normal heart size. Mild atheromatous coronary calcifications. No significant pericardial effusion. AXILLA, MARCELL, AND MEDIASTINUM: No lymphadenopathy or mass. Mildly dilated air- filled and patulous esophagus predominantly in the upper and midportion. PLEURAL SPACES: No pleural effusion or pneumothorax. LUNGS: Postsurgical changes from left upper posterior segmentectomy. Diffuse emphysematouschanges noted in bilateral lung villavicencio in the form of emphysematous bullae, more so in the bilateral upper lobes. Few patchy areas of ground-glass in noted in the apical segment of bilateral upper lobe,likely representing mild mosaic attenuation related to regional differences in ventilation. Fibroatelectatic changes noted involving the most of the right upper lobe, posterior and lateral segmentof right lower lobe and apicoposterior segment of left upper lobe. There is a 2.3 by 1.5 cm irregular subpleural consolidative opacity in the right lung base and an additional 16 mm subpleural nodular opacity in the medial right lung base. AIRWAYS: Patent central airways. There are filling defects noted in the anterior aspect of the left mainstem bronchus, likely secretions. Bilateral lower lobe p redominant diffuse bronchial wall thickening most pronounced in the right lower lobe with scatteredareas of mucous plugging. BASE OF NECK: Limited evaluation due to metallic artifacts from processesin right humerus, grossly normal. Lines and tubes: Trans subclavian atrial ventricular pacer leads continuous from left pectoral generator flow expected course. ABDOMEN: The study is not tailored for subdiaphragmatic evaluation. Partially imaged small hepatic cyst. Partially imaged scattered calcifications in the pancreas likely sequela of chronic pancreatitis BONES: Reduced height T1 and T10 vertebral body noted, likely compression fracture. Visualized spine shows degenerative changes in the form of osteophytes. Mild scoliosis with convexity towards right side. SOFT TISSUES: Unremarkable. No evidence of acute pulmonary embolism or aortic abnormality. Bilateral lower lobe predominant diffuse bronchial wall thickening most pronounced in the right lower lobe with areas of mucoid impaction. Subpleural nodular consolidative opacities in the right lung base, likely infectious or inflammatory etiology possibly related to aspiration. Stable postsurgical changes left upper lobe. Mildly dilated air-filled and patulous esophagus, may be related to reflux/dysmotility. Other stable findings BY ELECTRONICALLY SIGNING THIS REPORT, I THE ATTENDING PHYSICIAN ATTEST THAT I HAVE REVIEWED THE IMAGES FOR THE ABOVE PROCEDURE(S) AND AGREE WITH THE FINDINGS DOCUMENTED. Noble Clements MD , Kate Lugo MD, electronically signed on Aug 08 2025 11:37PM US Upper Extremity Venous Right Result Date: 08/08/2025 EXAMINATION: US UPPER EXTREMITY VENOUS RIGHT INDICATION: Right upper extremity edema. TECHNIQUE: Mullen scale and Doppler evaluation was performed on the right upper extremity veins. COMPARISON: None. FINDINGS: There is normal flow with respiratory variation in the bilateral subclavian veins. The right internal jugular, axillary, and brachial veins are patent, show normal color flow, spectral doppler, and compressibility. The right basilic, and cephalic veins are patent, compressible and show normal color flow. No evidence of deep vein thrombosis in the right upper extremity. BY ELECTRONICALLY SIGNING THIS REPORT, I THE ATTENDING PHYSICIAN ATTEST THAT I HAVE REVIEWED THE IMAGES FOR THE ABOVE PROCEDURE(S) AND AGREE WITH THE FINDINGS DOCUMENTED. Shivani Mcelroy MD , David Duran MD, electronicallysigned on Aug 08 2025 05:11PM XR Chest 1 VW Result Date: 08/08/2025 EXAMINATION: XR CHEST 1 VW INDICATION: increased 02 post op; increased 02 post op; TECHNIQUE: AP portable chest. COMPARISON: 06 August 2025 chest radiograph Since 06 August 2025 chest radiograph, stable nonspecific interstitial opacities, most notable inthe right upper lung. These opacities may represent pneumonia in the appropriate clinical context, although they may also represent chronic emphysematous changes or other chronic disease. Recommend CT chest with contrast for further evaluation. No significant pneumothorax. No significant pleural abnormality. Mildly increased retrocardiac opacity may be minimal atelectasis. Unremarkable cardiomediastinal silhouette. Monitoring and support devices are unchanged. Multiple serpiginous opacities distributed throughout the view of the hemithorax are likely outside of the patient. RECOMMENDATION(S):CT chest with contrast NOTIFICATION: The findings were discussed with, and acknowledged by Ching Martin by Dr. Cristopher Perry, using [employer] Secure Chat on 08/07/2025 at 3:01 pm, 5 minutes after discovery of the findings. BY ELECTRONICALLY SIGNING THIS REPORT, I THE ATTENDING PHYSICIAN ATTEST THAT I HAVE REVIEWED THE IMAGES FOR THE ABOVE PROCEDURE(S) AND AGREE WITH THE FINDINGS DOCUMENTED. Duran Chaudhari MD, electronically signed on Aug 08 2025 09:02AM ECG 12 lead Result Date: 08/07/2025 Sinus rhythm with frequent premature ventricular depolarizations and atrial paced complexes Inferior infarct , age undetermined Abnormal ECG When compared with ECG of 06-Jul-2025 09:09, Inferior infarct is now present Chest 1 VW Portable Result Date: 08/06/2025 EXAMINATION: XR CHEST 1 VW PORTABLE INDICATION: 74F history of emphysema now with shortness of breath despite nebulizers; There are no prior chest radiographs. The combination of severe emphysema and moderate interstitialpulmonary abnormality could all be smoking related. However without prior chest radiographs I can not tell if the interstitial abnormality is an acute problem such as mild pulmonary edema and perhapseven concurrent right upper lobe pneumonia. Any prior chest radiographs performed elsewhere should be obtained for [id number] comparison. Heart size is normal. No appreciable pleural abnormality ispresent. Trans subclavian atrial ventricular pacer leads continuous from the left pectoral generator follow expected courses. Romel Glynn MD, electronically signed on Aug 06 2025 09:04AM XR Shoulder 2+ VW Right Result Date: 08/02/2025 EXAMINATION: XR SHOULDER 2+ VW RIGHT INDICATION: R Shoulder Pain; TECHNIQUE: AP internal rotated, Grashey, and AP view of the right shoulder. COMPARISON: Right shoulder radiograph performed 11 July 2025 FINDINGS: Status post reverse total shoulder arthroplasty. There is an interval migration of the glenoid hardware with the glenosphere now directed anteriorly. The screws of the glenoid hardware appear to be directed posteriorly. There is mild anterior/inferior subluxation, possible dislocation of the humeral component. There is a focal opacity projected over the peripheral aspect of the right mid lung, recommend outpatient CT chest to better characterize. There are partially imaged cardiac leads. RECOMMENDATION(S): Recommend outpatient CT chest to better characterize focal lung opacity. NOTIFICATION: Per chart review, this hardware failure was addressed at clinic and the patient was taken to the OR for revision, and right shoulder hemiarthroplasty. The recommendation above regarding CT chest was entered by Dr. Carlos A Hummel on 08/02/2025 at 06:20 into the Actionable Findings Management dashboard for communication to the referring provider. BY ELECTRONICALLY SIGNING THIS REPORT, I THE ATTENDING PHYSICIAN ATTEST THAT I HAVE REVIEWED THE IMAGES FOR THE ABOVE PROCEDURE(S) AND AGREE WITH THE FINDINGS DOCUMENTED. Carlos Renteria MD , Carlos A Hummel MD, electronically signed on Aug 02 2025 06:21AM XR Shoulder AP Right Portable Result Date: 08/01/2025 EXAMINATION: XR SHOULDER AP RIGHT PORTABLE INDICATION: post op revision right shoulder; COMPARISON:31 July 2025 FINDINGS: Interval right-sided reverse glenohumeral arthroplasty revision. No fracture seen. Right upper lobe infiltrates raise possibility of pneumonia. Imaging follow-up recommended. Miles Ortiz MD, electronically signed on Aug 01 2025 06:20PM XR Shoulder 1 VW Right Result Date: 08/01/2025 INDICATION: Pain TECHNIQUE: 1 axillary view of the right shoulder COMPARISON: 11 July 2025 radiographs FINDINGS: There is a reversed right shoulder arthroplasty which on this single view appears in good alignment. No definite periprosthetic lucency. There are old right-sided rib fractures. Fredy Hunter MD, electronically signed on Aug 01 2025 07:46AM Assessment and Plan: 74 y.o. 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 S/p R shoulder IR aspiration 08/22 with no culture growth. Patient currently inpatientwith continued pain control. PLAN # Pain control # History of Opioid Use Disorder, on suboxone Pt with a history of opioid use disorder in setting of opioids for pancreatitis, recently started on suboxone (May). Requiring high amounts of opioids in this setting given her humerus fractureand post-R shoulder hemiarthroplasty. - Continue low dose suboxone, increased to TID on 08/27 per chronic pain recommendations - Started Lyrica 75 mg BID 08/26 - Chronic pain consulted, appreciate recommendations: S/p Morphine SATURATION DIVER 08/22-08/28 Switched to Morphine 60 mg PO Q4H PRN + Morphine IV Added on methocarbamol 500 mg QID on 08/27 # L proximal humerus comminuted transverse fracture s/p fall # Significant LUE edema Pt with a mechanical fall after misjudging where the toilet seat is and falling onto her L shoulder. Given persistent pain, presented to the ED. CT scan of L humerus showed acceptable alignment amenable to non-operative treatment with immobilization in a sling; however, pt unable to tolerate sling consistently with continued pain. Repeat LUE XR with interval callus formation and no new dislocation or fracture. - Ortho following, will plan for 1-2 week follow-up with L shoulder X-Ray LUE wrapped for compression due to edema with distal pulse, sensation, and motion checks every shift Re-engaged on 08/28 given continued pain, and significant swelling - Activity restrictions: can come out of the sling for gentle pendulum range of motion. She may usethe left upper extremity for light activity daily living but no heavy lifting more than 5 pounds (coffee cup weight bearing) - Pain control, see #Pain control as above - Appreciate OT evaluation # C/F R Wrist Drop Pt with R wrist pain and difficulty with voluntary extension. Ortho examined on 08/28 and not concerned about septic wrist, but are concerned for possible nerve impingement. - Follow-up R humerus XR # R shoulder swelling/pain, c/f R shoulder septic arthritis # Chronic R rotator cuff arthropathy s/p R total shoulder arthroplasty 07/11/25, conversion to R shoulder hemiarthroplasty with glenoid and humeral implant on 08/01/25 # Chronic right shoulder dislocation Pt with increased R shoulder pain and swelling post-surgery on 08/01 w/concern for possible septic joint w/CRP of 293. Initially given antibiotics, but d/c'ed for IR procedure on 08/20 to increase yield of IR tap on 08/22. Joint cultures NGTD. X ray showing chronic anterior dislocation of the humeral head relative to the glenoid, ortho reviewed and no acute intervention required, and will follow-up OP (Dr. Goins). - S/p vanc/cefepime on 08/19 - See #Pain control as above # Acute on chronic hypoxic respiratory failure (bl 4L NC) # C/f HAP # Leukocytosis, improved # Consolidative opacities in both lower lobes (from CT chest 08/19) # COPD without exacerbation Pt with noted consolidative opacities in both lower lobes from CT chest, initially w/o respiratory symptoms and baseline 4L NC. However, pt developed increased O2 requirements overnight, likely positional or 2/2 mucoid impaction; however, CXR still with evidence of PNA. Given pt was at rehab prior to current admission, treated recently for PNA with bactrim (08/01-08/10), and significant underlying lung disease will plan to treat for HAP. On 08/25, pt lost IV access and her IV antibiotics were transitioned to PO linezolid + levofloxacin. Overall, given pt's clinical stability very low concern for true MRSA HAP despite + MRSA swab, thus will plan to complete course of HAP coverage with Levofloxacin. - Vanc/Cefepime 08/23 - 08/25, Linezolid 08/26, Levofloxacin 08/26 - 08/29 - ANALYTICAL DATA MINER consultation appreciated, ok for regular diet - Continue home Dulera + Spiriva # Moderate hyponatremia, improving Pt with Na of 125 08/25. Overall most concerned for hypovolemic hyponatremia vs tea and toast givenpt unable to feed herself consistently. Of note, patient also getting vancomycin in Dextrose which could be contributing. Last diuretic dose on 08/22. Urine studies consistent with ADH being on givenUrine osms > 200. Urine Na is > 20, FeUrea < 55%. With IVF trial, Na increased, consistentwith likely low EABV though if pt does have SIADH it is likely in setting of uncontrolled pain. - 1L LR fluid challenge w/improvement in Na this AM - Continue to monitor Na # Urinary retention Pt with urinary retention this admission. Think that it is likely multifactorial, likely related tosome underlying pelvic floor dysfunction (pt was having trouble urinating prior to this hospitalization) + constipation from opioid use/decreased hydration + immobility. UA w/o evidence of infection. - Straight cath x4 - Helton placed overnight 08/25 - 08/26 - Will trial helton d/c when pain is better controlled/pt more mobile # Access Pt with very difficult upper extremity access given RUE DVT + L humerus proximal fracture and resulting edema. Given need for SATURATION DIVER + other intermittent IV medication needs, including electrolyte repletion + frequent lab draws, will pursue central line placement as PICC/midline are not options. - IR consult for temp access to be done on 08/27 # New R axillary vein DVT Pt with worsening R arm pain post-fall on L shoulder, w/increased swelling over right shoulder and lower arm. She was found on admission to have a new R axillary vein DVT. - Hep gtt started 08/20. Does not need to hold for IR drain of R shoulder. - Switched to apixaban on 08/25 # Constipation -Senna/miralax scheduled + bisacodyl suppository PRN CHRONIC CONDITIONS # Chronic HFrEF Nt-proBNP was normal 125 on admission w/no signs/symptoms of volume overload. - on home lasix 20mg MWF, restart 08/22 due to initial hypotension in ED (improved with 1L NS) - was holding entresto given hypotension, resumed 08/21 - daily weights, strict I&O # SSS s/p dcICD # NSVT PVC burden of 10% on prior Zio. - change metop succ 12.5 bid -> metop tart 12.5 bid given hypotension on arrival, now currently low 100s # Chronic iron deficiency anemia - baseline hb 9-10s - iron low on 08/03, ferritin 101. - continue po iron # Moderate malnutrition has lost >30lbs over last 6 months d/t poor appetite. Hypocalcemia corrected to ~9 w/albumin. - multivitamins, ensure tid, nutrition consult. Need help with food due to b/l arm pain # Hypothyroidism - levothyroxine 50 # Anxiety/depression - ativan 0.5 bid -> changed to BID PRN due to high dose opioid use, c/h paroxetine 20 # GERD - omeprazole # HLD - lipitor. # Nonobstructive CAD - asa 81, stop while on therapeutic AC for now Core Measures Nutrition: Oral. Hydration: Oral. Functional status: Out of bed to chair with assist. Bowel Function: Constipated. Lines/Tubes/Drains: Peripheral IV. VTE prophylaxis: Therapeutic anticoagulation. Living Situation: lives alone. Though recently coming from rehab. PAML Status: The preadmission medication list is ACCURATE and COMPLETE.. Anticipated Disposition: Acute rehabilitation vs SNF. Anticipated Length of Stay: 4-5 days. Advanced Care Planning: Full Code. Contacts/HCP/Surrogate: Extended Emergency Contact Information Primary Emergency Contact: Ashanti Green Address: [address] [place] [address] [place] Mobile Relation: Daughter Secondary Emergency Contact: Rory Craft Address: [address] [place] [id number] [facility] Mobile Relation: Son E/M Services: I spent 50 minutes in this clinical encounter reviewing the medical record, seeing and examining the patient, placing orders, writing notes, performing signout, and communicating with the applicable medical and nursing teams. Eloy Gomez MD Attending Physician Section of Hospital Medicine [facility] Hyponatremia (present on admission) : Labs repeated - Sodium of 130 on 08/27/2025 Anemia secondary to chronic disease and inflammation (present on admission) : Labs repeated - Hemoglobin of 7.3 on 08/29/2025 * Nadir Lewis MD - 08/28/2025 8:59 AM EST HOSPITAL MEDICINE PROGRESS NOTE Patient: Mayra Craft Admit Date: 08/19/2025 LOS: 8 days Primary Care Physician: Vanessa Culver MD Interval Events: NAEO. Added on methocarbamol + increased suboxone to to TID. Subjective: This AM, pt continues to have bilateral arm pain and is nervous about switching to PO/IV intermittent regimen; however, ultimately amenable to changing. Again seen without sling on L shoulder. Seen still without sling in place--she described pain with immobilization in one position. Otherwise denied abdominal pain, nausea, or shortness of breath. No BM yesterday. Physical Exam Temp: [97.5 ??F (36.4 ??C)-98.5 ??F (36.9 ??C)] 98.5 ??F (36.9 ??C) Heart Rate: [71-88] 82 Resp: [16-18] 16 BP: (94-149)/(52-63) 118/56 SpO2: [90 %-100 %] 97 % FiO2 (%): [1 %] 1 % General: Appears uncomfortable. HEENT: No scleral icterus. No conjunctival injection. Pulmonary: No increased work of breathing, on 4 L NC. Lungs with no wheezing, rales. Cardiovascular: Regular rate and rhythm. No murmurs, gallops, or rubs. Abdominal: Soft, mildly distended, non-tender to palpation. Extremities: No lower extremity edema. Warm and well perfused. MSK: Pt with large area of bruising around left arm (within marked area) and improving with ROM intact at shoulder, limited at elbow due to pain. LUE with improved swelling with compression with ocri wrapping. RUE with 2+ pitting edema in the proximal arm. Mild tenderness to palpation over right upper arm with c/d/I incision scar anteriorly + preserved ROM at shoulder, ROM limited over elbow due to pain. R wrist with bruising over R wrist, pain with flexion, improvement on extension--ROM intact though with pain. Neuro: Vision and hearing grossly intact. Face symmetric. Moving all four extremities purposefully. Psych: Alert and oriented. Normal affect. Lines: carlos BARRIENTOS in place Data: I have reviewed the relevant labs, radiology studies, tracings, medical records. ASSESSMENT AND PLAN is a 74 y.o. 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 S/p R shoulder IR aspiration 08/22 with no culture growth. Patient currently inpatient with continued pain control. PLAN #Pain control #History of Opioid Use Disorder, on suboxone Pt with a history of opioid use disorder in setting of opioids for pancreatitis, recently started on suboxone (May). Requiring high amounts of opioids in this setting given her humerus fractureand post-R shoulder hemiarthroplasty. - Continue low dose suboxone, increased to TID on 08/27 per chronic pain recommendations - Started Lyrica 75 mg BID 08/26 - Chronic pain consulted, appreciate recommendations: S/p Morphine SATURATION DIVER 08/22-08/28 Switched to Morphine 60 mg PO Q4H PRN + Morphine IV Added on methocarbamol 500 mg QID on 08/27 #L proximal humerus comminuted transverse fracture s/p fall #Significant LUE edema Pt with a mechanical fall after misjudging where the toilet seat is and falling onto her L shoulder. Given persistent pain, presented to the ED. CT scan of L humerus showed acceptable alignment amenable to non-operative treatment with immobilization in a sling; however, pt unable to tolerate sling consistently with continued pain. Repeat LUE XR with interval callus formation and no new dislocation or fracture. - Ortho following, will plan for 1-2 week follow-up with L shoulder X-Ray LUE wrapped for compression due to edema with distal pulse, sensation, and motion checks every shift Re-engaged on 08/28 given continued pain, and significant swelling - Activity restrictions: can come out of the sling for gentle pendulum range of motion. She may usethe left upper extremity for light activity daily living but no heavy lifting more than 5 pounds (coffee cup weight bearing) - Pain control, see #Pain control as above - Appreciate OT evaluation #C/F R Wrist Drop Pt with R wrist pain and difficulty with voluntary extension. Ortho examined on 08/28 and not concerned about septic wrist, but are concerned for possible nerve impingement. - Follow-up R humerus XR #R shoulder swelling/pain, c/f R shoulder septic arthritis #Chronic R rotator cuff arthropathy s/p R total shoulder arthroplasty 07/11/25, conversion to R shoulder hemiarthroplasty with glenoid and humeral implant on 08/01/25 #Chronic right shoulder dislocation Pt with increased R shoulder pain and swelling post-surgery on 08/01 w/concern for possible septic joint w/CRP of 293. Initially given antibiotics, but d/c'ed for IR procedure on 08/20 to increase yield of IR tap on 08/22. Joint cultures NGTD. X ray showing chronic anterior dislocation of the humeral head relative to the glenoid, ortho reviewed and no acute intervention required, and will follow-up OP (Dr. Goins). - S/p vanc/cefepime on 08/19 - See #Pain control as above #Acute on chronic hypoxic respiratory failure (bl 4L NC) #C/f HAP #Leukocytosis, improved #Consolidative opacities in both lower lobes (from CT chest 08/19) #COPD without exacerbation Pt with noted consolidative opacities in both lower lobes from CT chest, initially w/o respiratory symptoms and baseline 4L NC. However, pt developed increased O2 requirements overnight, likely positional or 2/2 mucoid impaction; however, CXR still with evidence of PNA. Given pt was at rehab prior to current admission, treated recently for PNA with bactrim (08/01-08/10), and significant underlying lung disease will plan to treat for HAP. On 08/25, pt lost IV access and her IV antibiotics were transitioned to PO linezolid + levofloxacin. Overall, given pt's clinical stability very low concern for true MRSA HAP despite + MRSA swab, thus will plan to complete course of HAP coverage with Levofloxacin. - Vanc/Cefepime 08/23 - 08/25, Linezolid 08/26, Levofloxacin 08/26 - 08/29 - ANALYTICAL DATA MINER consultation appreciated, ok for regular diet - Continue home Dulera + Spiriva #Moderate hyponatremia, improving Pt with Na of 125 08/25. Overall most concerned for hypovolemic hyponatremia vs tea and toast givenpt unable to feed herself consistently. Of note, patient also getting vancomycin in Dextrose which could be contributing. Last diuretic dose on 08/22. Urine studies consistent with ADH being on givenUrine osms > 200. Urine Na is > 20, FeUrea < 55%. With IVF trial, Na increased, consistentwith likely low EABV though if pt does have SIADH it is likely in setting of uncontrolled pain. - 1L LR fluid challenge w/improvement in Na this AM - Continue to monitor Na #Urinary retention Pt with urinary retention this admission. Think that it is likely multifactorial, likely related tosome underlying pelvic floor dysfunction (pt was having trouble urinating prior to this hospitalization) + constipation from opioid use/decreased hydration + immobility. UA w/o evidence of infection. - Straight cath x4 - Helton placed overnight 08/25 - 08/26 - Will trial helton d/c when pain is better controlled/pt more mobile #Access Pt with very difficult upper extremity access given RUE DVT + L humerus proximal fracture and resulting edema. Given need for SATURATION DIVER + other intermittent IV medication needs, including electrolyte repletion + frequent lab draws, will pursue central line placement as PICC/midline are not options. - IR consult for temp access to be done on 08/27 #New R axillary vein DVT Pt with worsening R arm pain post-fall on L shoulder, w/increased swelling over right shoulder and lower arm. She was found on admission to have a new R axillary vein DVT. - Hep gtt started 08/20. Does not need to hold for IR drain of R shoulder. - Switched to apixaban on 08/25 #Constipation -Senna/miralax scheduled + bisacodyl suppository PRN CHRONIC CONDITIONS #Chronic HFrEF Nt-proBNP was normal 125 on admission w/no signs/symptoms of volume overload. - on home lasix 20mg MWF, restart 08/22 due to initial hypotension in ED (improved with 1L NS) - was holding entresto given hypotension, resumed 08/21 - daily weights, strict I&O #SSS s/p dcICD #NSVT PVC burden of 10% on prior Zio. - change metop succ 12.5 bid -> metop tart 12.5 bid given hypotension on arrival, now currently low 100s #Chronic iron deficiency anemia - baseline hb 9-10s - iron low on 08/03, ferritin 101. - continue po iron #Moderate malnutrition has lost >30lbs over last 6 months d/t poor appetite. Hypocalcemia corrected to ~9 w/albumin. - multivitamins, ensure tid, nutrition consult. Need help with food due to b/l arm pain #Hypothyroidism - levothyroxine 50 #Anxiety/depression - ativan 0.5 bid -> changed to BID PRN due to high dose opioid use, c/h paroxetine 20 #GERD - omeprazole #HLD - lipitor. #Nonobstructive CAD - asa 81, stop while on therapeutic AC for now Core Measures Nutrition: Oral. Hydration: Oral. Functional status: Out of bed to chair with assist. Bowel Function: Constipated. Lines/Tubes/Drains: Peripheral IV. VTE prophylaxis: Therapeutic anticoagulation. Living Situation: lives alone. Though recently coming from rehab. PAML Status: The preadmission medication list is ACCURATE and COMPLETE.. Anticipated Disposition: Acute rehabilitation vs SNF. Anticipated Length of Stay: 4-5 days. Advanced Care Planning: Full Code. Contacts/HCP/Surrogate: Extended Emergency Contact Information Primary Emergency Contact: Ashanti Green Address: [address] [place] [id number] [place] Mobile Relation: Daughter Secondary Emergency Contact: Rory Craft Address: [address] [place] [address] [facility] Mobile Relation: Son E/M Services: I spent 80 minutes in this clinical encounter reviewing the medical record, seeing and examining the patient, placing orders, writing notes, performing signout, and communicating with the applicable medical and nursing teams. Nadir Lewis MD Attending Physician Section of Hospital Medicine [facility] Hyponatremia (present on admission) : Labs repeated - Sodium of 128 on 08/22/2025 Acute kidney injury (present on admission) : Labs repeated Admission creatinine increased by > 1.5x preadmission baseline Anemia secondary to chronic disease and inflammation (present on admission) : Labs repeated - Hemoglobin of 9 on 08/22/2025 * Dean Hopkins DO - 08/28/2025 8:19 AM EST Chronic Pain Service Follow-up Date of Consult: 08/28/2025 Patient: Mayra Craft : 1950 Attending: Nadir Lewis MD Primary Care Physician: Vanessa Culver MD Admit Date: 08/19/2025 CPS consult day#: 3 Primary Problem: Principal Problem: Closed comminuted fracture of left humerus, initial encounter (POA: Yes) Reason For Consultation: Management of Acute on Chronic Pain HPI: Mayra Craft is a 74 y.o. 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 recent hospitalization 08/01-08/10 with SOB felt combo of slight CHF exacerbation and COPDE/PNA mucoid impaction,dced to SNF presented with worsening b/l shoulder pain after fall at SNF 4 days ago found to have L humeral Fx and RUE DVT seen at the request of Nadir Lewis MD for acute on chronic pain Home Regimen: - Suboxone 4-1 Mass PAT: - confirmed suboxone - Oxycodone 5, 30 pills, filled 08/12 - Oxycodone 5, 7 pills, filled 08/12 - Oxy 5, 86 pills filled 08/17 MME Calculations : with suboxone 4mg (120 MME) 08/28: total of 205 mg IV morphine= 615 MME 08/27: total of 140 mg IV Morphine= 420 MME 08/26 total of 97 mg IV Morphine= 291 MME 08/24: total of 34 mg IV Morphine = 102 MME 08/23: Total of 99 mg IV Morphine = 297 MME 08/22: Dilaudid 4mg PO x4, moprhine IV 4mg x 3 = 212 MME 08/21: Dilaudid 4mg PO x 2, morphine 2mg IV x 1, moprhine 4mg IV x 6, oxycodone 5mg x1 = 245.5 08/20:Dilaudid 0.5 IV x3, morphine 2mg IV x2, morphine 4mg IV x2, oxycodone 5mg x 3 Interval History: Follow-up for chronic pain and fractures. Patient on chronic Suboxone and SATURATION DIVER pump inpatient. Current Pain Assessment: Reports new-onset back spasm overnight, described as tight and tingling. Pain is reported as slightly improved over the past day with increased SATURATION DIVER use. Still experiencing significant pain, with recent feelings of wanting to give up due to pain severity. Appears more comfortable at present. Medication Review: Currently on a SATURATION DIVER pump, with increased frequency of use recently, which is reported as beneficial.Also on chronic Suboxone therapy. History of taking gabapentin, which was not helpful and declines to use again. Analgesic Interventions and Response: Increased SATURATION DIVER use has provided some relief. Allergies: Tetracyclines and Gabapentin Medical/Surgical History: Past Medical History[1] Past Surgical History[2] Social/Family History: Social History[3] Family History[4] Current Medications: Scheduled Meds:Scheduled Medications[5] Continuous Infusions:Infusions Meds[6] PRN Meds:PRN Medications[7] Physical Exam: BP 118/56 (BP Location: Right leg, Patient Position: Lying) Pulse 82 Temp 98.5 ??F (36.9 ??C) (Oral) Resp 16 Ht 1.727 m (5' 8 ) Wt 63.3 kg (139 lb 8 oz) SpO2 97% BMI 21.21 kg/m?? General: Patient is alert, well-appearing, in pain HEENT: Normocephalic, atraumatic. No obvious facial asymmetry or lesions. Cardiovascular: No peripheral edema. No cyanosis noted. Respiratory: Breathing comfortably at rest. No audible wheezes or respiratory distress. Musculoskeletal: Limited abduction of bilateral shoulder due to pain Neurologic: Alert and oriented. Speech fluent. Psychiatric: Pleasant, cooperative. Normal affect and behavior. Labs, Imaging & Other Studies which resulted at the time of signing this note were reviewed. Notable findings include: Impression: Mayra Craft is a 74 y.o. 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 recent hospitalization 08/01-08/10 with SOB felt combo of slight CHF exacerbation and COPDE/PNA mucoid impaction,dced to SNF presented with worsening b/l shoulder pain after fall at SNF 4 days ago found to have L humeral Fx and RUE DVT seen at the request of Nadir Lewis MD for acute on chronic pain Discharge Diagnoses Diagnosis POA Closed comminuted fracture of left humerus, initial encounter Yes Resolved Diagnoses No resolved problems to display. Patient with acute on chronic right and acute left shoulder pain in setting of multiple surgeries on right and traumatic fall on left. Shoulder pathology complicated by DVT on right. Has significant nociceptive pain in setting of chronic opioid use for chronic pancreatitis. Patient has been on highdoses of morphine for days and may suffer side effects from metabolites. In light of that should transition to a lower dose oxycodone as well as increase suboxone. Recommendations: Can increase Suboxone to 8-2mg TID Transition from morphine PO to oxycodone 10mg q4 PRN with 10mg morphine IV breakthrough Methocarbamol 500mg four times daily Agree with Senna and Miralax BID. Encourage fluid intake as tolerated and PRN suppository to ensureadeuqate bowel movements in setting of opioid induced constipation Lyrica 75 mg BID Thank you for the opportunity to be part of this patients care. CPS will sign off at this point. Please don't hesitate to reach out to the CPS consult team at [facility] [id number] (BID) in any concern or question regarding the pain management plan for this patient. If the patient requires outpatient follow up, please schedule an appointment at the [facility] by calling [phone]. This plan was communicated with the CPS attending Signed by: Dean Hopkins DO Interventional pain fellow Greater than 50% of this 80 minute consultation was spent teaching, counseling, and coordinating care [1] Past Medical History: Diagnosis Date COPD (chronic obstructive pulmonary disease) ([facility]) [2] Past Surgical History: Procedure Laterality Date lung resection , left 2016 ARTHROPLASTY REVERSE SHOULDER Right 07/11/2025 Surgeon: Harpreet Goins MD; Location: [facility]; Service: Orthopaedics; Laterality: Right; ARTHROPLASTY REVERSE SHOULDER Right 08/01/2025 Surgeon: Harpreet Goins MD; Location: [facility]; Service: Orthopaedics; Laterality: Right; INTERVENTIONAL RADIOLOGY PROCEDURE 08/27/2025 IR NON TUNNELED VASCULAR CATHETER 08/27/2025 Sammi Mckeon MD [facility] GZ3 IR CARDIAC SURGERY INSERT PACEMAKER PERMANENT JOINT REPLACEMENT KNEE ARTHROSCOPY Left around 15 years ago rectus sheath hematoma [3] Social History Tobacco Use Smoking status: Former Current packs/day: 0.00 Average packs/day: 1.5 packs/day for 54.0 years (81.0 ttl pk-yrs) Types: Cigarettes Start date: 1962 Quit date: 2017 Years since quittin.9 Smokeless tobacco: Never Substance Use Topics Alcohol use: Never Drug use: Never [4] No family history on file. [5] apixaban, 5 mg, Oral, BID ascorbic acid, 500 mg, Oral, Daily atorvaSTATin, 20 mg, Oral, Nightly buprenorphine-naloxone, 1 Film, Sublingual, TID cholecalciferol, 1,000 Units, Oral, Daily cycloSPORINE, 1 drop, Both Eyes, BID ferrous sulfate, 325 mg, Oral, Daily with breakfast [Held by provider] furosemide, 20 mg, Oral, Daily levoFLOXacin, 750 mg, Oral, Q24H levothyroxine, 50 mcg, Oral, Daily (0600) vzigdb-bvxrnbqv-zvuxfju (pork), 48,000 units of lipase, Oral, TID with meals methocarbamoL, 500 mg, Oral, 4 times daily metoprolol tartrate, 12.5 mg, Oral, BID mometasone-formoterol, 2 puff, Inhalation, BID multivitamin with minerals tablet, 1 tablet, Oral, Daily omeprazole, 20 mg, Oral, Daily (0600) PARoxetine, 20 mg, Oral, QAM sodium chloride, 3 mL, Intravenous, Q12H KALEY polyethylene glycol, 17 g, Oral, BID pregabalin, 75 mg, Oral, BID sacubitriL-valsartan, 0.5 tablet, Oral, BID sennosides, 17.2 mg, Oral, BID tiotropium bromide, 2 puff, Inhalation, Daily RT [6] morphine (PF) in 0.9 % sodium chloride, [7] acetaminophen aluminum-magnesium hydroxide-simethicone benzocaine-menthoL bisacodyl calcium carbonate guaiFENesin ipratropium-albuteroL lidocaine HCL LORazepam ondansetron OR ondansetron Insert and Maintain Peripheral IV AND sodium chloride AND sodium chloride Cosigned by Dominick Mora MD at 08/28/2025 7:09 PM EST Associated attestation - Dominick Mora MD - 08/28/2025 7:09 PM EST Patient was discussed with Dr. Hopkins. At this time she is using very high dose medications withoutmuch benefit. I recommend continuing increase Suboxone. Recommend a change MS Contin to oxycodone 10 mg every 3-[address] Mora * Dean Hopkins DO - 08/27/2025 5:56 PM EST Chronic Pain Service Follow-up Date of Consult: 08/27/2025 Patient: Mayra Craft : 1950 Attending: Nadir Lewis MD Primary Care Physician: Vanessa Culver MD Admit Date: 08/19/2025 CPS consult day#: 3 Primary Problem: Principal Problem: Closed comminuted fracture of left humerus, initial encounter (POA: Yes) Reason For Consultation: Management of Acute on Chronic Pain HPI: Mayra Cratf is a 74 y.o. 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 recent hospitalization 08/01-08/10 with SOB felt combo of slight CHF exacerbation and COPDE/PNA mucoid impaction,dced to SNF presented with worsening b/l shoulder pain after fall at SNF 4 days ago found to have L humeral Fx and RUE DVT seen at the request of Nadir Lewis MD for acute on chronic pain Home Regimen: - Suboxone 4-1 Mass PAT: - confirmed suboxone - Oxycodone 5, 30 pills, filled 08/12 - Oxycodone 5, 7 pills, filled 08/12 - Oxy 5, 86 pills filled 08/17 MME Calculations : with suboxone 4mg (120 MME) 08/27: total of 140 mg IV Morphine= 420 MME 08/26 total of 97 mg IV Morphine 08/24: total of 34 mg IV Morphine = 102 MME 08/23: Total of 99 mg IV Morphine = 297 MME 08/22: Dilaudid 4mg PO x4, moprhine IV 4mg x 3 = 212 MME 08/21: Dilaudid 4mg PO x 2, morphine 2mg IV x 1, moprhine 4mg IV x 6, oxycodone 5mg x1 = 245.5 08/20:Dilaudid 0.5 IV x3, morphine 2mg IV x2, morphine 4mg IV x2, oxycodone 5mg x 3 Interval History: Follow-up for chronic pain and fractures. Patient on chronic Suboxone and SATURATION DIVER pump inpatient. Current Pain Assessment: Reports new-onset back spasm overnight, described as tight and tingling. Pain is reported as slightly improved over the past day with increased SATURATION DIVER use. Still experiencing significant pain, with recent feelings of wanting to give up due to pain severity. Appears more comfortable at present. Medication Review: Currently on a SATURATION DIVER pump, with increased frequency of use recently, which is reported as beneficial.Also on chronic Suboxone therapy. History of taking gabapentin, which was not helpful and declines to use again. Analgesic Interventions and Response: Increased SATURATION DIVER use has provided some relief. Allergies: Tetracyclines and Gabapentin Medical/Surgical History: Past Medical History[1] Past Surgical History[2] Social/Family History: Social History[3] Family History[4] Current Medications: Scheduled Meds:Scheduled Medications[5] Continuous Infusions:Infusions Meds[6] PRN Meds:PRN Medications[7] Physical Exam: BP 102/53 (BP Location: Right leg, Patient Position: Lying) Pulse 78 Temp 97.7 ??F (36.5 ??C) (Oral) Resp 18 Ht 1.727 m (5' 8 ) Wt 62.3 kg (137 lb 4.8 oz) SpO2 92% BMI 20.88 kg/m?? General: Patient is alert, well-appearing, in pain HEENT: Normocephalic, atraumatic. No obvious facial asymmetry or lesions. Cardiovascular: No peripheral edema. No cyanosis noted. Respiratory: Breathing comfortably at rest. No audible wheezes or respiratory distress. Musculoskeletal: Limited abduction of bilateral shoulder due to pain Neurologic: Alert and oriented. Speech fluent. Psychiatric: Pleasant, cooperative. Normal affect and behavior. Labs, Imaging & Other Studies which resulted at the time of signing this note were reviewed. Notable findings include: Impression: Mayra Craft is a 74 y.o. 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 recent hospitalization 08/01-08/10 with SOB felt combo of slight CHF exacerbation and COPDE/PNA mucoid impaction,dced to SNF presented with worsening b/l shoulder pain after fall at SNF 4 days ago found to have L humeral Fx and RUE DVT seen at the request of Nadir Lewis MD for acute on chronic pain Discharge Diagnoses Diagnosis POA Closed comminuted fracture of left humerus, initial encounter Yes Resolved Diagnoses No resolved problems to display. Patient with acute on chronic right and acute left shoulder pain in setting of multiple surgeries on right and traumatic fall on left. Shoulder pathology complicated by DVT on right. Has significant nociceptive pain in setting of chronic opioid use for chronic pancreatitis. Recommendations: Can increase Suboxone to 4-1mg TID Continue Morphine SATURATION DIVER 2mg, lockout interval 6 minutes, no continuous dose, 1 hour lockout of 20mg Can consider transition from mPCA to PO morphine dose: last 24hr dose ~420 MME PO Morphine 60mg q4 PRN IV Morphine 20mg q4 PRN for breakthrough Can Start methocarbamol 500mg four times daily Agree with Senna and Miralax BID. Encourage fluid intake as tolerated and PRN suppository to ensureadeuqate bowel movements in setting of opioid induced constipation Lyrica 75 mg BID Thank you for the opportunity to be part of this patients care. CPS will Continue to follow up at this point. Please don't hesitate to reach out to the CPS consult team at [facility] [id number] ([facility]) in any concern or question regarding the pain management plan for this patient. If the patient requires outpatient follow up, please schedule an appointment at the [facility] by calling [phone]. This plan was communicated with the CPS attending Signed by: Dean Hopkins DO Interventional pain fellow Greater than 50% of this 80 minute consultation was spent teaching, counseling, and coordinating care [1] Past Medical History: Diagnosis Date COPD (chronic obstructive pulmonary disease) (CMS-HCC) [2] Past Surgical History: Procedure Laterality Date lung resection , left 2017 ARTHROPLASTY REVERSE SHOULDER Right 07/11/2025 Surgeon: Harpreet Goins MD; Location: [facility] OR; Service: Orthopaedics; Laterality: Right; ARTHROPLASTY REVERSE SHOULDER Right 08/01/2025 Surgeon: Harpreet Goins MD; Location: [facility] OR; Service: Orthopaedics; Laterality: Right; INTERVENTIONAL RADIOLOGY PROCEDURE 08/27/2025 IR NON TUNNELED VASCULAR CATHETER 08/27/2025 Sammi Mckeon MD [facility] GZ3 IR CARDIAC SURGERY INSERT PACEMAKER PERMANENT JOINT REPLACEMENT KNEE ARTHROSCOPY Left around 15 years ago rectus sheath hematoma [3] Social History Tobacco Use Smoking status: Former Current packs/day: 0.00 Average packs/day: 1.5 packs/day for 54.0 years (81.0 ttl pk-yrs) Types: Cigarettes Start date: 1962 Quit date: 2016 Years since quittin.9 Smokeless tobacco: Never Substance Use Topics Alcohol use: Never Drug use: Never [4] No family history on file. [5] apixaban, 5 mg, Oral, BID ascorbic acid, 500 mg, Oral, Daily atorvaSTATin, 20 mg, Oral, Nightly buprenorphine-naloxone, 0.5 Film, Sublingual, BID cholecalciferol, 1,000 Units, Oral, Daily cycloSPORINE, 1 drop, Both Eyes, BID ferrous sulfate, 325 mg, Oral, Daily with breakfast [Held by provider] furosemide, 20 mg, Oral, Daily levoFLOXacin, 750 mg, Oral, Q24H levothyroxine, 50 mcg, Oral, Daily (0600) wcxxwh-usletdxv-nrhdkxp (pork), 48,000 units of lipase, Oral, TID with meals metoprolol tartrate, 12.5 mg, Oral, BID mometasone-formoterol, 2 puff, Inhalation, BID multivitamin with minerals tablet, 1 tablet, Oral, Daily omeprazole, 20 mg, Oral, Daily (0600) PARoxetine, 20 mg, Oral, QAM sodium chloride, 3 mL, Intravenous, Q12H KALEY polyethylene glycol, 17 g, Oral, BID pregabalin, 75 mg, Oral, BID sacubitriL-valsartan, 0.5 tablet, Oral, BID sennosides, 17.2 mg, Oral, BID tiotropium bromide, 2 puff, Inhalation, Daily RT [6] morphine (PF) in 0.9 % sodium chloride, [7] acetaminophen aluminum-magnesium hydroxide-simethicone benzocaine-menthoL bisacodyl calcium carbonate guaiFENesin ipratropium-albuteroL lidocaine HCL LORazepam ondansetron OR ondansetron Insert and Maintain Peripheral IV AND sodium chloride AND sodium chloride Cosigned by Dominick Mora MD at 08/27/2025 8:50 PM EST Associated attestation - Dominick Mora MD - 08/27/2025 8:50 PM EST Patient seen and examined. She has chronic opioid dependence and chronic pain syndrome. Things are worsening with shoulder injury. At this time she is taking IV morphine to control the pain in addition to Suboxone being titrated up. Transition from IV morphine to p.o., since she is on the high dosetitrate down by 50% minimally. Dominick Mora MD * Nadir Lewis MD - 08/27/2025 1:40 PM EST HOSPITAL MEDICINE PROGRESS NOTE Patient: Mayra Craft Admit Date: 08/19/2025 LOS: 7 days Primary Care Physician: Vanessa Culver MD Interval Events: NAEO. Subjective: This AM, pt continues to have bilateral arm pain. Seen still without sling in place--she described pain with immobilization in one position. Described to her the importance of immobilization for healing of the fracture, which she understood and was open to strategies for improving her pain. Also notably with significant edema and now weeping of her LUE. Physical Exam Temp: [97.6 ??F (36.4 ??C)-98.1 ??F (36.7 ??C)] 97.9 ??F (36.6 ??C) Heart Rate: [71-87] 71 Resp: [18] 18 BP: (137-156)/(63-79) 149/63 SpO2: [91 %-100 %] 93 % General: Appears uncomfortable. HEENT: No scleral icterus. No conjunctival injection. Pulmonary: No increased work of breathing, on 4 L NC. Lungs with no wheezing, rales. Cardiovascular: Regular rate and rhythm. No murmurs, gallops, or rubs. Abdominal: Soft, mildly distended, non-tender to palpation. Extremities: No lower extremity edema. Warm and well perfused. MSK: Pt with large area of bruising around left arm (within marked area) and improving with ROM intact at shoulder, limited at elbow due to pain. LUE w/significant edema throughout arm, most prominent on left hand. Mild tenderness to palpation over right upper arm with c/d/I incision scar anteriorly + preserved ROM at shoulder, ROM limited over elbow due to pain. R wrist with bruising over R wrist, pain with flexion, improvement on extension--ROM intact though with pain. Neuro: Vision and hearing grossly intact. Face symmetric. Moving all four extremities purposefully. Psych: Alert and oriented. Normal affect. Data: I have reviewed the relevant labs, radiology studies, tracings, medical records. ASSESSMENT AND PLAN is a 74 y.o. 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 S/p R shoulder IR aspiration 08/22 to rule out septic arthritis. PLAN #Pain control #History of Opioid Use Disorder, on suboxone Pt with a history of opioid use disorder in setting of opioids for pancreatitis, recently started on suboxone (May). Requiring high amounts of opioids in this setting given her humerus fractureand post-R shoulder hemiarthroplasty. - Continue low dose suboxone, increased to BID per chronic pain recommendations, consider increasing it to TID? - Started Lyrica 75 mg BID 08/27/25 - Will likely plan to increase suboxone to 4 mg TID tomorrow - Chronic pain consulted, appreciate recommendations: Plan for Morphine SATURATION DIVER to assess pain requirement #R shoulder swelling/pain, c/f R shoulder septic arthritis #Chronic R rotator cuff arthropathy s/p R total shoulder arthroplasty 07/11/25, conversion to R shoulder hemiarthroplasty with glenoid and humeral implant on 08/01/25 #Chronic right shoulder dislocation Pt with increased R shoulder pain and swelling post-surgery on 08/01 w/concern for possible septic joint w/CRP of 293. Initially given antibiotics, but d/c'ed for IR procedure on 08/20 to increase yield of IR tap on 08/22. Awaiting culture results, but will hold off on further antibiotics at this time. X ray showing chronic anterior dislocation of the humeral head relative to the glenoid, ortho reviewed and no acute intervention required, and will follow-up OP (Dr. Goins). - Follow-up blood cultures - S/p vanc/cefepime on 08/19 - Follow-up joint cultures, no fluid studies able to be obtained - See #Pain control as above #Acute on chronic hypoxic respiratory failure (bl 4L NC) #C/f HAP #Leukocytosis, improved #Consolidative opacities in both lower lobes (from CT chest 08/19) #COPD without exacerbation Pt with noted consolidative opacities in both lower lobes from CT chest, initially w/o respiratory symptoms and baseline 4L NC. However, pt developed increased O2 requirements overnight, likely positional or 2/2 mucoid impaction; however, CXR still with evidence of PNA. Given pt was at rehab prior to current admission, treated recently for PNA with bactrim (08/01-08/10), and significant underlying lung disease will plan to treat for HAP. On 08/25, pt lost IV access and her IV antibiotics were transitioned to PO linezolid + levofloxacin. Overall, given pt's clinical stability very low concern for true MRSA HAP despite + MRSA swab, thus will plan to complete course of HAP coverage with Levofloxacin - Vanc/Cefepime 08/23 - 08/25, Linezolid 08/26, Levofloxacin 08/26 - 08/29 - ANALYTICAL DATA MINER consultation appreciated, ok for regular diet - Continue home Dulera + Spiriva #Moderate hyponatremia, improving Pt with Na of 125 08/25. Overall most concerned for hypovolemic hyponatremia vs tea and toast givenpt unable to feed herself consistently. Of note, patient also getting vancomycin in Dextrose which could be contributing. Last diuretic dose on 08/22. Urine studies consistent with ADH being on givenUrine osms > 200. Urine Na is > 20, FeUrea < 55%. With IVF trial, Na increased, consistentwith likely low EABV though if pt does have SIADH it is likely in setting of uncontrolled pain. - 1L LR fluid challenge w/improvement in Na this AM - Continue to monitor Na #Urinary retention Pt with urinary retention this admission. Think that it is likely multifactorial, likely related tosome underlying pelvic floor dysfunction (pt was having trouble urinating prior to this hospitalization) + constipation from opioid use/decreased hydration + immobility. UA w/o evidence of infection. - Straight cath x4 - Helton placed overnight 08/25 - 08/26 - Will trial helton d/c when pain is better controlled/pt more mobile #Access Pt with very difficult upper extremity access given RUE DVT + L humerus proximal fracture and resulting edema. Given need for SATURATION DIVER + other intermittent IV medication needs, including electrolyte repletion + frequent lab draws, will pursue central line placement as PICC/midline are not options. - IR consult for temp access to be done on 08/27 #L proximal humerus comminuted transverse fracture s/p fall Pt with a mechanical fall after misjudging where the toilet seat is and falling onto her L shoulder. Given persistent pain, presented to the ED. CT scan of L humerus showed acceptable alignment amenable to non-operative treatment with immobilization in a sling. - Ortho following, will plan for 1-2 week follow-up with L shoulder X-Ray - Activity restrictions: can come out of the sling for gentle pendulum range of motion. She may usethe left upper extremity for light activity daily living but no heavy lifting more than 5 pounds. - Asked ortho re: wrapping LUE given significant edema, and confirmed ok for loose wrapping with distal pulse, sensation, and motion checked every shift - Pain control, see #Pain control as above - Appreciate OT evaluation #New R axillary vein DVT Pt with worsening R arm pain post-fall on L shoulder, w/increased swelling over right shoulder and lower arm. She was found on admission to have a new R axillary vein DVT. - Hep gtt started 08/20. Does not need to hold for IR drain of R shoulder. - Will switch to apixaban on 08/25 #Constipation -Senna/miralax scheduled + bisacodyl suppository PRN CHRONIC CONDITIONS #Chronic HFrEF Nt-proBNP was normal 125 on admission w/no signs/symptoms of volume overload. - on home lasix 20mg MWF, restart 08/22 due to initial hypotension in ED (improved with 1L NS) - was holding entresto given hypotension, resumed 08/21 - daily weights, strict I&O #SSS s/p dcICD #NSVT PVC burden of 10% on prior Zio. - change metop succ 12.5 bid -> metop tart 12.5 bid given hypotension on arrival, now currently low 100s #Chronic iron deficiency anemia - baseline hb 9-10s - iron low on 08/03, ferritin 101. - continue po iron #Moderate malnutrition has lost >30lbs over last 6 months d/t poor appetite. Hypocalcemia corrected to ~9 w/albumin. - multivitamins, ensure tid, nutrition consult. Need help with food due to b/l arm pain #Hypothyroidism - levothyroxine 50 #Anxiety/depression - ativan 0.5 bid -> changed to BID PRN due to high dose opioid use, c/h paroxetine 20 #GERD - omeprazole #HLD - lipitor. #Nonobstructive CAD - asa 81, stop while on therapeutic AC for now Core Measures Nutrition: Oral. Hydration: Oral. Functional status: Out of bed to chair with assist. Bowel Function: Constipated. Lines/Tubes/Drains: Peripheral IV. VTE prophylaxis: Therapeutic anticoagulation. Living Situation: lives alone. Though recently coming from rehab. PAML Status: The preadmission medication list is ACCURATE and COMPLETE.. Anticipated Disposition: Acute rehabilitation vs SNF. Anticipated Length of Stay: 4-5 days. Advanced Care Planning: Full Code. Contacts/HCP/Surrogate: Extended Emergency Contact Information Primary Emergency Contact: Ashanti Green Address: [address] [place] [address] [employer] Relation: Daughter Secondary Emergency Contact: VenancioRory Address: [address] [place] [address] [place] [employer] Relation: Son E/M Services: I spent 65 minutes in this clinical encounter reviewing the medical record, seeing and examining the patient, placing orders, writing notes, performing signout, and communicating with the applicable medical and nursing teams. Nadir Lewis MD Attending Physician Section of Hospital Medicine [facility] Hyponatremia (present on admission) : Labs repeated - Sodium of 128 on 08/22/2025 Acute kidney injury (present on admission) : Labs repeated Admission creatinine increased by > 1.5x preadmission baseline Anemia secondary to chronic disease and inflammation (present on admission) : Labs repeated - Hemoglobin of 9 on 08/22/2025 * Nuzhat Gamboa RN - 08/27/2025 12:08 PM EST Images from the original note were not included. Case Management - Progress Note Patient: Mayra Craft : 1950 Attending: Nadir Lewis MD Admit Date: 08/19/2025 Inpatient Status Admit Date: 08/20/25 Primary Care Physician: Vanessa Culver MD Case Management Continued Stay Note Has patient been discussed in MDR?:Yes Estimated Date of Discharge:08-30 Plan: rehab Anticipated barriers (Medical & Non-Medical), if any: medical readiness Comments: met with patient at bedside, will not return to [facility] [place], would like rehab in [facility], close to dtr who live in [place] [facility] left for dtr to include in dc planning, referrals placed local to area, pending bed offer, Case Management will continue to monitor and address anticipated discharge planning needs. Should post-acute services be indicated, the patient and/or their authorized reimbursement representative will be providedwith a comprehensive list of available, appropriate providers from which to choose. Nuzhat Gamboa RN 08/27/2025 * Nadir Lewis MD - 08/26/2025 10:07 AM EST HOSPITAL MEDICINE PROGRESS NOTE Patient: Mayra Craft Admit Date: 08/19/2025 LOS: 6 days Primary Care Physician: Vanessa Culver MD Interval Events: Helton ordered given > 3x need for straight cath Patient with difficult IV access overnight--IR consulted. Antibiotics were switched to PO given concerns with giving antibiotics over small IV. Pain mediation use: 08/24 95.9 mg of IV morphine used Subjective: This AM, pt's LUQ abdominal pain is improved. Feels that this might be because she waited to take her AM medications after breakfast. Has continued bilateral upper arm pain, of note hasn't been usingher sling. Describes 'manipulating OT' into taking it off. Explained that it would likely help the healing process and positioning and she was willing to re-trial sling for immobilization. Physical Exam Temp: [97.3 ??F (36.3 ??C)-98.2 ??F (36.8 ??C)] 97.4 ??F (36.3 ??C) Heart Rate: [69-83] 76 Resp: [16-20] 18 BP: (108-184)/(67-79) 108/67 SpO2: [95 %-100 %] 97 % General: Appears uncomfortable. HEENT: No scleral icterus. No conjunctival injection. Pulmonary: No increased work of breathing, on 4 L NC. Lungs with no wheezing, rales. Cardiovascular: Regular rate and rhythm. No murmurs, gallops, or rubs. Abdominal: Soft, mildly distended, non-tender to palpation. Extremities: No lower extremity edema. Warm and well perfused. MSK: Pt with large area of bruising around left arm (within marked area) and improving with ROM intact at shoulder, limited at elbow due to pain. LLE Mild tenderness to palpation over right upper armwith c/d/I incision scar anteriorly + preserved ROM at shoulder, ROM limited over elbow due to pain. R wrist with bruising over R wrist, pain with flexion, improvement on extension--ROM intact thoughwith pain. Neuro: Vision and hearing grossly intact. Face symmetric. Moving all four extremities purposefully. Psych: Alert and oriented. Normal affect. Data: I have reviewed the relevant labs, radiology studies, tracings, medical records. ASSESSMENT AND PLAN is a 74 y.o. 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 S/p R shoulder IR aspiration 08/22 to rule out septic arthritis. PLAN #Pain control #History of Opioid Use Disorder, on suboxone Pt with a history of opioid use disorder in setting of opioids for pancreatitis, recently started on suboxone (May). Requiring high amounts of opioids in this setting given her humerus fractureand post-R shoulder hemiarthroplasty. - Continue low dose suboxone, increased to BID per chronic pain recommendations ' - Started Lyrica 75 mg BID 08/26/25 - Will likely plan to increase suboxone to 4 mg TID tomorrow - Chronic pain consulted, appreciate recommendations: Plan for Morphine SATURATION DIVER to assess pain requirement #R shoulder swelling/pain, c/f R shoulder septic arthritis #Chronic R rotator cuff arthropathy s/p R total shoulder arthroplasty 07/11/25, conversion to R shoulder hemiarthroplasty with glenoid and humeral implant on 08/01/25 #Chronic right shoulder dislocation Pt with increased R shoulder pain and swelling post-surgery on 08/01 w/concern for possible septic joint w/CRP of 293. Initially given antibiotics, but d/c'ed for IR procedure on 08/20 to increase yield of IR tap on 08/22. Awaiting culture results, but will hold off on further antibiotics at this time. X ray showing chronic anterior dislocation of the humeral head relative to the glenoid, ortho reviewed and no acute intervention required, and will follow-up OP (Dr. Goins). - Follow-up blood cultures - S/p vanc/cefepime on 08/19 - Follow-up joint cultures, no fluid studies able to be obtained - See #Pain control as above #Acute on chronic hypoxic respiratory failure (bl 4L NC) #C/f HAP #Leukocytosis, improved #Consolidative opacities in both lower lobes (from CT chest 08/19) #COPD without exacerbation Pt with noted consolidative opacities in both lower lobes from CT chest, initially w/o respiratory symptoms and baseline 4L NC. However, pt developed increased O2 requirements overnight, likely positional or 2/2 mucoid impaction; however, CXR still with evidence of PNA. Given pt was at rehab prior to current admission, treated recently for PNA with bactrim (08/01-08/10), and significant underlying lung disease will plan to treat for HAP. On 08/25, pt lost IV access and her IV antibiotics were transitioned to PO linezolid + levofloxacin. Overall, given pt's clinical stability very low concern for true MRSA HAP despite + MRSA swab, thus will plan to complete course of HAP coverage with Levofloxacin - Vanc/Cefepime 08/23 - 08/25, Linezolid 08/26, Levofloxacin 08/26 - 08/29 - ANALYTICAL DATA [employer]ER consultation appreciated, ok for regular diet - Continue home Dulera + Spiriva #Hyponatremia, moderate Pt with Na of 125 08/25. Overall most concerned for hypovolemic hyponatremia vs tea and toast givenpt unable to feed herself consistently. Of note, patient also getting vancomycin in Dextrose which could be contributing. Last diuretic dose on 08/22. Urine studies consistent with ADH being on givenUrine osms > 200. Urine Na is > 20, FeUrea < 55%. With IVF trial, Na increased, consistentwith likely low EABV though if pt does have SIADH it is likely in setting of uncontrolled pain. - 1L LR fluid challenge w/improvement in Na this AM - Continue to monitor Na #Urinary retention Pt with urinary retention this admission. Think that it is likely multifactorial, likely related tosome underlying pelvic floor dysfunction (pt was having trouble urinating prior to this hospitalization) + constipation from opioid use/decreased hydration + immobility. UA w/o evidence of infection. - Straight cath x4 - Helton placed overnight 08/25 - 08/26 - Will trial helton d/c when pain is better controlled/pt more mobile #Access Pt with very difficult upper extremity access given RUE DVT + L humerus proximal fracture and resulting edema. Given need for SATURATION DIVER + other intermittent IV medication needs, including electrolyte repletion + frequent lab draws, will pursue central line placement as PICC/midline are not options. - IR consult for temp access #L proximal humerus comminuted transverse fracture s/p fall Pt with a mechanical fall after misjudging where the toilet seat is and falling onto her L shoulder. Given persistent pain, presented to the ED. CT scan of L humerus showed acceptable alignment amenable to non-operative treatment with immobilization in a sling. - Ortho following, will plan for 1-2 week follow-up with L shoulder X-Ray - Activity restrictions: can come out of the sling for gentle pendulum range of motion. She may usethe left upper extremity for light activity daily living but no heavy lifting more than 5 pounds. - Asked ortho re: wrapping LUE given significant edema, and confirmed ok for loose wrapping with distal pulse, sensation, and motion checked every shift - Pain control, see #Pain control as above - Appreciate OT evaluation #New R axillary vein DVT Pt with worsening R arm pain post-fall on L shoulder, w/increased swelling over right shoulder and lower arm. She was found on admission to have a new R axillary vein DVT. - Hep gtt started 08/20. Does not need to hold for IR drain of R shoulder. - Will switch to apixaban on 08/25 #Constipation -Senna/miralax scheduled + bisacodyl suppository PRN CHRONIC CONDITIONS #Chronic HFrEF Nt-proBNP was normal 125 on admission w/no signs/symptoms of volume overload. - on home lasix 20mg MWF, restart 08/22 due to initial hypotension in ED (improved with 1L NS) - was holding entresto given hypotension, resumed 08/21 - daily weights, strict I&O #SSS s/p dcICD #NSVT PVC burden of 10% on prior Zio. - change metop succ 12.5 bid -> metop tart 12.5 bid given hypotension on arrival, now currently low 100s #Chronic iron deficiency anemia - baseline hb 9-10s - iron low on 08/03, ferritin 101. - continue po iron #Moderate malnutrition has lost >30lbs over last 6 months d/t poor appetite. Hypocalcemia corrected to ~9 w/albumin. - multivitamins, ensure tid, nutrition consult. Need help with food due to b/l arm pain #Hypothyroidism - levothyroxine 50 #Anxiety/depression - ativan 0.5 bid -> changed to BID PRN due to high dose opioid use, c/h paroxetine 20 #GERD - omeprazole #HLD - lipitor. #Nonobstructive CAD - asa 81, stop while on therapeutic AC for now Core Measures Nutrition: Oral. Hydration: Oral. Functional status: Out of bed to chair with assist. Bowel Function: Constipated. Lines/Tubes/Drains: Peripheral IV. VTE prophylaxis: Therapeutic anticoagulation. Living Situation: lives alone. Though recently coming from rehab. PAML Status: The preadmission medication list is ACCURATE and COMPLETE.. Anticipated Disposition: Acute rehabilitation vs SNF. Anticipated Length of Stay: 4-5 days. Advanced Care Planning: Full Code. Contacts/HCP/Surrogate: Extended Emergency Contact Information Primary Emergency Contact: Ashanti Green Address: [address] [place] [address] Mobile Relation: Daughter Secondary Emergency Contact: VenancioRory Address: [address] [place] [id number] [place] [address] Mobile Relation: Son E/M Services: I spent 60 minutes in this clinical encounter reviewing the medical record, seeing and examining the patient, placing orders, writing notes, performing signout, and communicating with the applicable medical and nursing teams. Nadir Lewis MD Attending Physician Section of Hospital Medicine [facility] Hyponatremia (present on admission) : Labs repeated - Sodium of 128 on 08/22/2025 Acute kidney injury (present on admission) : Labs repeated Admission creatinine increased by > 1.5x preadmission baseline Anemia secondary to chronic disease and inflammation (present on admission) : Labs repeated - Hemoglobin of 9 on 08/22/2025 * Navdeep Cleary MD - 08/26/2025 8:37 AM EST Chronic Pain Service Follow-up Date of Consult: 08/26/2025 Patient: Mayra Craft : 1950 Attending: Nadir Lewis MD Primary Care Physician: Vanessa Culver MD Admit Date: 08/19/2025 CPS consult day#: 3 Primary Problem: Principal Problem: Closed comminuted fracture of left humerus, initial encounter (POA: Yes) Reason For Consultation: Management of Acute on Chronic Pain HPI: Mayra Craft is a 74 y.o. 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 recent hospitalization 08/01-08/10 with SOB felt combo of slight CHF exacerbation and COPDE/PNA mucoid impaction,dced to SNF presented with worsening b/l shoulder pain after fall at SNF 4 days ago found to have L humeral Fx and RUE DVT seen at the request of Nadir Lewis MD for acute on chronic pain Home Regimen: - Suboxone 4-1 Mass PAT: - confirmed suboxone - Oxycodone 5, 30 pills, filled 08/12 - Oxycodone 5, 7 pills, filled 08/12 - Oxy 5, 86 pills filled 08/17 MME Calculations : with suboxone 4mg (120 MME) 08/26 total of 97 mg IV Morphine 08/24: total of 34 mg IV Morphine = 102 MME 08/23: Total of 99 mg IV Morphine = 297 MME 08/22: Dilaudid 4mg PO x4, moprhine IV 4mg x 3 = 212 MME 08/21: Dilaudid 4mg PO x 2, morphine 2mg IV x 1, moprhine 4mg IV x 6, oxycodone 5mg x1 = 245.5 08/20:Dilaudid 0.5 IV x3, morphine 2mg IV x2, morphine 4mg IV x2, oxycodone 5mg x 3 Interval History: Follow-up for chronic pain and fractures. Patient on chronic Suboxone and SATURATION DIVER pump inpatient. Current Pain Assessment: Reports new-onset back spasm overnight, described as tight and tingling. Pain is reported as slightly improved over the past day with increased SATURATION DIVER use. Still experiencing significant pain, with recent feelings of wanting to give up due to pain severity. Appears more comfortable at present. Medication Review: Currently on a SATURATION DIVER pump, with increased frequency of use recently, which is reported as beneficial.Also on chronic Suboxone therapy. History of taking gabapentin, which was not helpful and declines to use again. Analgesic Interventions and Response: Increased SATURATION DIVER use has provided some relief. Allergies: Tetracyclines and Gabapentin Medical/Surgical History: Past Medical History[1] Past Surgical History[2] Social/Family History: Social History[3] Family History[4] Current Medications: Scheduled Meds:Scheduled Medications[5] Continuous Infusions:Infusions Meds[6] PRN Meds:PRN Medications[7] Physical Exam: BP 108/67 (BP Location: Right arm, Patient Position: Lying) Pulse 76 Temp 97.4 ??F (36.3 ??C) (Oral) Resp 18 Ht 1.727 m (5' 8 ) Wt 59.1 kg (130 lb 6.4 oz) SpO2 97% BMI 19.83 kg/m?? General: Patient is alert, well-appearing, in pain HEENT: Normocephalic, atraumatic. No obvious facial asymmetry or lesions. Cardiovascular: No peripheral edema. No cyanosis noted. Respiratory: Breathing comfortably at rest. No audible wheezes or respiratory distress. Musculoskeletal: Limited abduction of bilateral shoulder due to pain Neurologic: Alert and oriented. Speech fluent. Psychiatric: Pleasant, cooperative. Normal affect and behavior. Labs, Imaging & Other Studies which resulted at the time of signing this note were reviewed. Notable findings include: Impression: Mayra Craft is a 74 y.o. 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 recent hospitalization 08/01-08/10 with SOB felt combo of slight CHF exacerbation and COPDE/PNA mucoid impaction,dced to SNF presented with worsening b/l shoulder pain after fall at SNF 4 days ago found to have L humeral Fx and RUE DVT seen at the request of Nadir Lewis MD for acute on chronic pain Discharge Diagnoses Diagnosis POA Closed comminuted fracture of left humerus, initial encounter Yes Resolved Diagnoses No resolved problems to display. Patient with acute on chronic right and acute left shoulder pain in setting of multiple surgeries on right and traumatic fall on left. Shoulder pathology complicated by DVT on right. Has significant nociceptive pain in setting of chronic opioid use for chronic pancreatitis. Recommendations: Continue Suboxone to 4-1mg BID Continue Morphine SATURATION DIVER 2mg, lockout interval 6 minutes, no continuous dose, 1 hour lockout of 20mg Agree with Senna and Miralax BID. Encourage fluid intake as tolerated and PRN suppository to ensureadeuqate bowel movements in setting of opioid induced constipation Start Lyrica 75 mg BID Thank you for the opportunity to be part of this patients care. CPS will Continue to follow up at this point. Please don't hesitate to reach out to the CPS consult team at [facility] [id number] ([facility]) in any concern or question regarding the pain management plan for this patient. If the patient requires outpatient follow up, please schedule an appointment at the [facility] by calling [phone]. This plan was communicated with the CPS attending Signed by: Navdeep Cleary MD Interventional pain fellow Greater than 50% of this 80 minute consultation was spent teaching, counseling, and coordinating care [1] Past Medical History: Diagnosis Date COPD (chronic obstructive pulmonary disease) ([facility]) [2] Past Surgical History: Procedure Laterality Date lung resection , left 2017 ARTHROPLASTY REVERSE SHOULDER Right 07/11/2025 Surgeon: Harpreet Goins MD; Location: [facility] OR; Service: Orthopaedics; Laterality: Right; ARTHROPLASTY REVERSE SHOULDER Right 08/01/2025 Surgeon: Harpreet Goins MD; Location: [facility] OR; Service: Orthopaedics; Laterality: Right; CARDIAC SURGERY INSERT PACEMAKER PERMANENT JOINT REPLACEMENT KNEE ARTHROSCOPY Left around 15 years ago rectus sheath hematoma [3] Social History Tobacco Use Smoking status: Former Current packs/day: 0.00 Average packs/day: 1.5 packs/day for 54.0 years (81.0 ttl pk-yrs) Types: Cigarettes Start date: 1962 Quit date: 2017 Years since quittin.9 Smokeless tobacco: Never Substance Use Topics Alcohol use: Never Drug use: Never [4] No family history on file. [5] apixaban, 10 mg, Oral, BID [START ON 08/27/2025] apixaban, 5 mg, Oral, BID ascorbic acid, 500 mg, Oral, Daily atorvaSTATin, 20 mg, Oral, Nightly buprenorphine-naloxone, 0.5 Film, Sublingual, BID [Held by provider] cefepime, 2 g, Intravenous, Q8H cholecalciferol, 1,000 Units, Oral, Daily cycloSPORINE, 1 drop, Both Eyes, BID ferrous sulfate, 325 mg, Oral, Daily with breakfast [Held by provider] furosemide, 20 mg, Oral, Daily levothyroxine, 50 mcg, Oral, Daily (0600) linezolid, 600 mg, Oral, BID jyjulq-shdakuer-hhnfcbv (pork), 48,000 units of lipase, Oral, TID with meals metoprolol tartrate, 12.5 mg, Oral, BID mometasone-formoterol, 2 puff, Inhalation, BID multivitamin with minerals tablet, 1 tablet, Oral, Daily omeprazole, 20 mg, Oral, Daily (0600) PARoxetine, 20 mg, Oral, QAM sodium chloride, 3 mL, Intravenous, Q12H KALEY polyethylene glycol, 17 g, Oral, BID sacubitriL-valsartan, 0.5 tablet, Oral, BID sennosides, 17.2 mg, Oral, BID tiotropium bromide, 2 puff, Inhalation, Daily RT [Held by provider] vancomycin, 15 mg/kg (Adjusted), Intravenous, Q8H vancomycin per pharmacy protocol, 1 each, Miscellaneous, See Admin Instructions [6] morphine (PF) in 0.9 % sodium chloride, [7] acetaminophen aluminum-magnesium hydroxide-simethicone benzocaine-menthoL bisacodyl calcium carbonate guaiFENesin ipratropium-albuteroL lidocaine HCL LORazepam ondansetron OR ondansetron Insert and Maintain Peripheral IV AND sodium chloride AND sodium chloride Cosigned by Sandeep Viramontes MD at 08/26/2025 12:11 PM EST Associated attestation - Sandeep Viramontes MD - 08/26/2025 12:11 PM EST I saw the patient and participated in the landrum portions of the visit, including the medical decisionmaking. I reviewed today's note as written by Navdeep Cleary MD. I agree with the findings and plan of care. Sandeep Viramontes MD Patient comfortable, sleep improved add adjuvant pregabalin. Add more suboxone tomorrow, 4 mg dose tid. * Juan Bales, PharmD - 08/25/2025 3:02 PM EST Pharmacy To Dose Vancomycin - Assessment/Adjustment Mayra Craft is a 74 y.o. female on vancomycin for empiric treatment of MRSA HAP Objective Information: Vitals BP: 132/79 Temp: 97.3 ??F (36.3 ??C) Temp Source: Oral Heart Rate: 74 Resp: 18 SpO2: 97 % Height: 172.7 cm (5' 8 ) Actual Weight: 58.2 kg (128 lb 3.2 oz) Renal Function: Baseline Scr: 0.3 mg/dL Lab Results Component Value Date CREATININE 0.30 (L) 08/25/2025 CREATININE 0.30 (L) 08/24/2025 CREATININE 0.40 08/23/2025 CREATININE 0.40 08/22/2025 CREATININE 0.40 08/21/2025 Estimated Creatinine Clearance: 146.6 mL/min (A) (by C-G formula based on SCr of 0.3 mg/dL (L)). Intake/Output: I/O last 2 completed shifts: In: 1897.8 [P.O.:480; I.V.:1417.8] Out: 1300 [Urine:1300] Culture Results: No results found for the last 90 days. Dose Assessment: Date of vancomycin initiation: 08/23 Current dose: 1000 mg every 8 hours -Most recent level: Lab Results Component Value Date NADYA 12.6 08/25/2025 -Time from end of last vancomycin infusion: 6.3 hour -Estimated true trough: 10.6 mcg/mL - Given Scr of 0.3, would anticipate that Bayesian estimates have poor fit in these patient and therefore will not calculate dose. Plan: -Continue current dose, will obtain repeat level in next few days given risk for accumulation in patient receiving vancomycin dosing every 8 hours and > 65 -Will continue daily monitoring of renal function, cultures/susceptibilities, and any changes to antibiotic plan. If there is a change in therapy to an alternative agent or the treatment duration ends, the pharmacist will sign off automatically. Otherwise, a pharmacist will continue to monitor vancomycin therapy. Please contact for further questions. Juan Bales PharmD * Nadir Lewis MD - 08/25/2025 9:24 AM EST HOSPITAL MEDICINE PROGRESS NOTE Patient: Mayra Craft Admit Date: 08/19/2025 LOS: 5 days Primary Care Physician: Vanessa Culver MD Interval Events: NAEO. Pain mediation use: 08/24 58.9 mg of IV morphine used Subjective: This AM, pt feels unwell with nausea and LUQ abdominal pain. No emesis. Left abdominal pain sharp pain under her rib, similar to prior abdominal pain with prior constipation. Continues to have poor PO intake given difficulty eating by herself from arm pain. Did have a BM yesterday, but continues tohave urinary retention. Physical Exam Temp: [97.2 ??F (36.2 ??C)-98.4 ??F (36.9 ??C)] 97.2 ??F (36.2 ??C) Heart Rate: [69-95] 69 Resp: [18-28] 18 BP: (106-147)/(61-79) 141/74 SpO2: [90 %-100 %] 96 % General: Appears uncomfortable. HEENT: No scleral icterus. No conjunctival injection. Pulmonary: Mild crackles in bilateral bases. No increased work of breathing, on 4 L NC. Cardiovascular: Regular rate and rhythm. No murmurs, gallops, or rubs. Abdominal: Soft, tender to palpation over LLQ. Extremities: No lower extremity edema. Warm and well perfused. MSK: Pt with large area of bruising around left arm (within marked area) and improving with ROM intact at shoulder, limited at elbow due to pain. Mild tenderness to palpation over right upper arm with c/d/I incision scar anteriorly + preserved ROM at shoulder, ROM limited over elbow due to pain. R wrist with bruising over R wrist, pain with flexion, improvement on extension--ROM intact though with pain. Neuro: Vision and hearing grossly intact. Face symmetric. Moving all four extremities purposefully. Psych: Alert and oriented. Normal affect. Data: I have reviewed the relevant labs, radiology studies, tracings, medical records. ASSESSMENT AND PLAN is a 74 y.o. 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 S/p R shoulder IR aspiration 08/22 to rule out septic arthritis. PLAN #Pain control #History of Opioid Use Disorder, on suboxone Pt with a history of opioid use disorder in setting of opioids for pancreatitis, recently started on suboxone (May). Requiring high amounts of opioids in this setting given her humerus fractureand post-R shoulder hemiarthroplasty. - Continue low dose suboxone, increased to BID per chronic pain recommendations - Chronic pain consulted, appreciate recommendations: Plan for Morphine SATURATION DIVER to assess pain requirement #R shoulder swelling/pain, c/f R shoulder septic arthritis #Chronic R rotator cuff arthropathy s/p R total shoulder arthroplasty 07/11/25, conversion to R shoulder hemiarthroplasty with glenoid and humeral implant on 08/01/25 #Chronic right shoulder dislocation Pt with increased R shoulder pain and swelling post-surgery on 08/01 w/concern for possible septic joint w/CRP of 293. Initially given antibiotics, but d/c'ed for IR procedure on 08/20 to increase yield of IR tap on 08/22. Awaiting culture results, but will hold off on further antibiotics at this time. X ray showing chronic anterior dislocation of the humeral head relative to the glenoid, ortho reviewed and no acute intervention required, and will follow-up OP (Dr. Goins). - Follow-up blood cultures - S/p vanc/cefepime on 08/19 - Follow-up joint cultures, no fluid studies able to be obtained - See #Pain control as above #Acute on chronic hypoxic respiratory failure (bl 4L NC) #C/f HAP #Leukocytosis, improved #Consolidative opacities in both lower lobes (from CT chest 08/19) #COPD without exacerbation Pt with noted consolidative opacities in both lower lobes from CT chest, initially w/o respiratory symptoms and baseline 4L NC. However, pt developed increased O2 requirements overnight, likely positional or 2/2 mucoid impaction; however, CXR still with evidence of PNA. Given pt was at rehab prior to current admission, treated recently for PNA with bactrim (08/01-08/10), and significant underlying lung disease will plan to treat for HAP. - Vanc/Cefepime 08/23 for 7 day course - MRSA swab + - ANALYTICAL DATA MINER consultation appreciated, ok for regular diet - Continue home Dulera + Spiriva #Hyponatremia, moderate Pt with Na of 125 today. Overall most concerned for hypovolemic hyponatremia vs tea and toast givenpt unable to feed herself consistently. Of note, patient also getting vancomycin in Dextrose which could be contributing. Last diuretic dose on 08/22. Urine studies consistent with ADH being on givenUrine osms > 200. Urine Na is > 20, FeUrea < 55%. Thus, can trial IVF and recheck urine lytes. If SIADH, likely 2/2 pain. - 1L LR fluid challenge - Recheck urine lytes - Continue to monitor Na #L proximal humerus comminuted transverse fracture s/p fall Pt with a mechanical fall after misjudging where the toilet seat is and falling onto her L shoulder. Given persistent pain, presented to the ED. CT scan of L humerus showed acceptable alignment amenable to non-operative treatment with immobilization in a sling. - Ortho following, will plan for 1-2 week follow-up with L shoulder X-Ray - Activity restrictions: can come out of the sling for gentle pendulum range of motion. She may usethe left upper extremity for light activity daily living but no heavy lifting more than 5 pounds. - Pain control, see #Pain control as above - Appreciate OT evaluation #New R axillary vein DVT Pt with worsening R arm pain post-fall on L shoulder, w/increased swelling over right shoulder and lower arm. She was found on admission to have a new R axillary vein DVT. - Hep gtt started 08/20. Does not need to hold for IR drain of R shoulder. - Will switch to apixaban on 08/25 #Constipation -Senna/miralax scheduled + bisacodyl suppository PRN CHRONIC CONDITIONS #Chronic HFrEF Nt-proBNP was normal 125 on admission w/no signs/symptoms of volume overload. - on home lasix 20mg MWF, restart 08/22 due to initial hypotension in ED (improved with 1L NS) - was holding entresto given hypotension, resumed 08/21 - daily weights, strict I&O #SSS s/p dcICD #NSVT PVC burden of 10% on prior Zio. - change metop succ 12.5 bid -> metop tart 12.5 bid given hypotension on arrival, now currently low 100s #Chronic iron deficiency anemia - baseline hb 9-10s - iron low on 08/03, ferritin 101. - continue po iron #Moderate malnutrition has lost >30lbs over last 6 months d/t poor appetite. Hypocalcemia corrected to ~9 w/albumin. - multivitamins, ensure tid, nutrition consult. Need help with food due to b/l arm pain #Hypothyroidism - levothyroxine 50 #Anxiety/depression - ativan 0.5 bid -> changed to BID PRN due to high dose opioid use, c/h paroxetine 20 #GERD - omeprazole #HLD - lipitor. #Nonobstructive CAD - asa 81, stop while on therapeutic AC for now Core Measures Nutrition: Oral. Hydration: Oral. Functional status: Out of bed to chair with assist. Bowel Function: Constipated. Lines/Tubes/Drains: Peripheral IV. VTE prophylaxis: Therapeutic anticoagulation. Living Situation: lives alone. Though recently coming from rehab. PAML Status: The preadmission medication list is ACCURATE and COMPLETE.. Anticipated Disposition: Acute rehabilitation vs SNF. Anticipated Length of Stay: 4-5 days. Advanced Care Planning: Full Code. Contacts/HCP/Surrogate: Extended Emergency Contact Information Primary Emergency Contact: Ashanti Green Address: [address] [place] [address] [facility] Mobile Relation: Daughter Secondary Emergency Contact: Rory Craft Address: [id number] [place] [id number] [place] [address] Mobile Relation: Son E/M Services: I spent 75 minutes in this clinical encounter reviewing the medical record, seeing and examining the patient, placing orders, writing notes, performing signout, and communicating with the applicable medical and nursing teams. Nadir Lewis MD Attending Physician Section of Hospital Medicine [facility] Hyponatremia (present on admission) : Labs repeated - Sodium of 128 on 08/22/2025 Acute kidney injury (present on admission) : Labs repeated Admission creatinine increased by > 1.5x preadmission baseline Anemia secondary to chronic disease and inflammation (present on admission) : Labs repeated - Hemoglobin of 9 on 08/22/2025 * Shannan Arellano OT - 08/24/2025 4:55 PM EST OCCUPATIONAL THERAPY PROGRESS NOTE Rehabilitation Services - Inpatient Occupational Therapy Level of Care: Floor Interdisciplinary Recommendations OT Discharge rec: (Rehab) Movement Precautions: ROM, Bracing/Orthoses (LUE in sling at all times ok for pendulums only, RUE in sling for comfort, ROMAT. ignacio wrist/elbow/digit ROMAT) WB Status: Extremity Weight Bearing Status: Left Upper Extremity, Right Upper Extremity LUE Weight Bearing : (CCWB, 5lb) RUE Weight Bearing : NWB Activity and Mobility Recommendations: [x]Patient is at high risk for deconditioning. Please maximize independence in ADLs and encourage frequent mobility including: Daily mobility per [facility] mobility goals established, Encourage out of bed activity as tolerated, Recommend using mechanical lift for all out of bed transfers [x]Patient is at risk for pressure injury. Please limit sitting time to one hour on standard air cushion given patient???s inability to effectively reposition in chair. [x]Patient is at risk for falls. Please use chair alarm when out of bed. [x]Patient is at risk for delirium. Please consider implementing strategies to reduce risk including: OOB to chair 3 day for all meals Familiar pictures and items within view News or nonverbal music on during daytime Lights on during day with shades UP Frequent Reorientation to clock, calendar, and window Encourage participation with ADLs Encourage family presence at bedside *For questions please check the patient???s care team for the most updated OT contact information [x]Updated medical status including labs, radiology, procedures and medications since previous visit reviewed SUBJECTIVE: I'd like to do that but not right now I had a long day Patient goal and desires: maintain strength OBJECTIVE: CLIENT FACTORS: Mental Functions: Level of Consciousness: Alert Orientation Level: Oriented X4 Following Directions: Follows one step directions without difficulty Success rate following directions: 100% of the time Patient Behaviors/Mood: Appropriate for situation, Calm, Cooperative Memory: Intact Attention to Tasks: Attends to task, Attends to conversation Safety Awareness: (benefits from re-education regarding precautions) Insight: (fair insight into abilities/limitations) Problem Solving: Assistance required to generate solutions, Assistance required to implement solutions OCCUPATIONS: Current Activities of Daily Living: Feeding: Maximal assistance (limited by pain and decreased ROM) Where Assessed - Feeding: Bed level Upper Body Dressing Assistance Required: Maximal assistance (don L sling) Where Assessed-Upper Body ADLs: Bed level Trialed using active assisted strategies for self-feeding without success, limited by pain & weakness. Requires max A to don sling Functional Mobility Patient declined due to pain and fatigue []Vital signs monitored and found to be within normal limits with exceptions noted in Flowsheets/detailed below Hemodynamic Response/Aerobic Capacity HR BP RR O2 RPE/SAEED REST Supine Sit Stand ACTIVITY RECOVERY Pain: 8/10 at rest. +/10 with activity. +/10 at recovery. Location: Arm, Shoulder Quality: does not describe Intervention: Medication (See MAR) SATURATION DIVER Limiting Symptoms: Pain Fatigue Additional Tests/Measures: AAROM elbow, wrist flexion/extension x 2 reps Team Communication: Communicated with [x]RN [x]MD [x]PT(cris[]) []CM RE: Patient status, ROM, WB orders []Rodeo Clown utilized for session Intervention: Patient/Caregiver Education RE: Role of OT OT plan of care Discharge recommendations ADL strategies ROM ADL/Occupation task training Pt left supine with all needs in reach, bed alarm for safety ASSESSMENT/CLINICAL IMPRESSION: Mayra Craft is a 74 y.o. female who presents to occupational therapy during hospitalization for L humerus fracture. Pt continues to present below baseline in areas specific to client factors such as ADL/Self-care, Altered balance, Decreased activity tolerance, Decreased ROM, Decreased strength/muscular endurance, Pain, Non-functional R UE, Non-functional L UE and occupations such as Functional Mobility, Safety Judgement, Decreased activity tolerance, Upper body ADL's, Lower body ADL's, IADL's, Feeding, Toileting due to bilateral UE injuries with restrictions on ROM and weightbearing. 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 Due to pt current impairments and their impact on occupational engagement, pt will most benefit from d/c to interdisciplinary rehab. Acute OT will continue to follow and progress per intervention plan. Treatment Plan: ADL retraining, Balance training, Bed mobility, Fine motor coordination activities, Functional mobility training, IADL retraining, Patient/family education, Upper extremity strengthening, Upper extremity ROM Patient agrees with the above goals and is willing to participate in the rehabilitation program: Yes Time: 3435-6371 Occupational Therapist Name: Shannan Arellano OT License #[id number] Occupational Therapist Pager: [phone] * Mary Green PT - 08/24/2025 4:14 PM EST PHYSICAL THERAPY INITIAL EVALUATION Rehabilitation Services - Inpatient Physical Therapy Level of Care: Floor Interdisciplinary Recommendations PT Discharge rec: Short-term Rehab Movement Precautions: ROM, Bracing/Orthoses WB Status: Extremity Weight Bearing Status: Left Upper Extremity, Right Upper Extremity LUE Weight Bearing : (CCWB, no lifting >5#, sling at all times, ok for pendulums/gentle ROM) RUE Weight Bearing : NWB (ROMAT) Activity and Mobility Recommendations: [x]Patient is at high risk for deconditioning. Please maximize independence in ADLs and encourage frequent mobility including: Lift for all mobility including transfers to chair 3x/day [x]Patient is at risk for pressure injury. Please limit sitting time to one hour on standard air cushion given patient???s inability to effectively reposition in chair. [x]Patient is at risk for falls. Please use chair alarm when out of bed. [x]Patient is at risk for delirium. Please consider implementing strategies to reduce risk including: OOB to chair 3 day for all meals Familiar pictures and items within view News or nonverbal music on during daytime Lights on during day with shades UP Frequent Reorientation to clock, calendar, and window Encourage participation with ADLs Encourage family presence at bedside *For questions please check the patient???s care team for the most updated PT contact information [x]HPI/Subjective Complaint, Past Medical/Surgical History, Medications, Radiology, and Labs reviewed Social History/Prior Function Home Environment Type of Home: House Home Layout: One level, Stairs to enter with rails (4-5 YUVAL, then patient lives on first level of home) Bathroom Shower/Tub: Tub only Bathroom Toilet: Standard Home Equipment: Cane, Oxygen (4L O2) Fall History Number of Falls (last 12 months): 3 Cause of Fall(s): (patient unable to recall the cause of her recent falls) Fall History Reported By: Self Prior Function Leisure activities: pt reports she enjoys spending time with her dogs and being outside Lives With: Alone Receives Help From: Child(essie) (has 2 supportive daughters who live nearby) Provides Care/Help To: Pet (has four dogs) Current Services: None Mobility/ADL Assistance: Independent (ambulates with SC at baseline) Homemaking Assistance: Needs assistance (Needs assistance family members perform IADLs including cooking, grocery shopping, and cleaning) Transportation: Requires assistance from family/friends Subjective: I already got to the chair today, I am too tired Patient-Stated Goal: does not state this session Objective: Cognition: Level of Consciousness: Alert Orientation Level: Oriented X4 Following Directions: Follows all directions without difficulty Success rate following directions: 100% of the time Patient Behaviors/Mood: Anxious, Sad Memory: Intact Attention to Tasks: Attends to task, Attends to conversation Hemodynamic Response/Aerobic Capacity - VSS throughout; 02 >93% throughout on 4LNC - slight desat with acapella trial which resolved within 30 sec of rest. [x]Full systems review completed and found to be within normal limits with the following exceptions: Respiratory: non-labored, even breathing pattern No spont cough noted Respiratory (WDL): Within Defined Limits Respiratory Pattern: Regular, Unlabored Chest Assessment: Chest expansion symmetrical Bilateral Breath Sounds: Diminished Congested, moderate cough with x1 secretion clearance (cerna thick secretion) Integumentary: C/D/I, consistent with LDA Peripheral Edema: LUE>RUE with significant edema + ecchymosis noted Vascular: Extremities warm and well perfused appearing Posture: WFL Range Of Motion: Grossly WFL with exception of ignacio shoulders - not assessed 2/2 restrictions. See OT note for further details Muscle Performance: Grossly WFL, BLE demos >/= 3+/5 throughout via bridging in bed and SLR therex Motor Function: Moves all extremities in isolation Pain: 10/10 throughout Location: ignacio shoulders, L >R Quality: bad Intervention: repositioning coordinated with RN for pain medication Functional Mobility - pt just recently returned to supine from recliner via totalA with high back sling Bed Mobility: Supine to Sit: Activity does not occur Sit to Supine: Activity does not occur Transfers: Sit to Stand: Activity does not occur Stand to Sit: Activity does not occur Transfer Barriers: Pain, Fatigue Gait: Ambulation Assistance: Activity does not occur Stairs: n/a Balance: min-modA for repositioning in supine Sitting - Static: ([place] to pull into long sitting, able to maintain with CG) Standing - Static: Activity does not occur Limiting Symptoms: Pain, Fatigue Intervention: PT eval performed, education below, acapella and continuous 02 monitoring, pulm hygiene, supine therex (bridging, SLR x10) Patient/Caregiver Education RE: [x]Role of PT [x]PT plan of care [x]Fall risk reduction [x]Discharge recommendations [x]Mobility Recommendations []Other: []Rodeo Clown utilized for session Team Communication: Communicated with [x]RN []MD [x]OT [x]CM RE: Patient status [x]Patient discussed at interdisciplinary team rounds. Pt left supine with all needs in reach, bed alarm for safety Assessment Impairments of Body Functions and Structures, Activity Limitations and Participation Restrictions: Decreased range of motion, Decreased strength/Muscular endurance, Knowledge deficit, Pain, Decreased ADL status Clinical Impression/Prognosis: Mayra Craft is a 74 y.o. female with past medical history significant for MDD/CHRIS, opioid use disorder in sustained remission, SSS s/p dcICD, HFrEF (ef 40%) 2/2 niCM,moderate MR, NSVT with 10% PVC burden, non-obstructive CAD (CTA 2021). 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 recent hospitalization 08/01-08/10 with SOB felt combo ofslight CHF exacerbation and COPDE/PNA mucoid impaction, dced to SNF presented with worsening b/l shoulder pain after fall at SNF 4 days ago found to have L humeral Fx and RUE DVT. Pt is functioning well below baseline limited by impairments in body structure and function as listed above. Pt???s primary impairment/activity limitation is impaired activity tolerance which is likely due to pain from ignacio shoulders and recent falls. 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 At this time, rec return to STR to optimize function prior to returning home. Acute PT will cont to follow to progress as ablewhile admitted to for medical reasons. Patient has good potential to return to [facility] living based on positive prognostic indicators including Baseline level of function, Strong social supports, Expected improvement with medical management. Progress may be slowed by potentially limiting prognostic indicators including Multiple co-morbidities Goals: 2 weeks - Pt will verbalize LUE precautions indep - Pt will instruct staff member to don splint with appropriate steps indep - Pt will perform sup>sit with minAx2 - Pt will perform sit>stand with minaX2 Plan: Treatment/Interventions: balance training, bed mobility, LE strengthening, sit>Stand training, pulm hygiene . Anticipated In Hospital Frequency : 1-2x/wk. Patient agrees with the above goals and is willing to participate in the rehabilitation program: Yes Time: 8207-2764 Physical Therapist Name: Mary Green PT Physical Therapist License (PTL): [id number] Physical Therapist Pager: [phone] * Ron Peraza PharmD - 08/24/2025 2:09 PM EST Pharmacy To Dose Vancomycin - Assessment/Adjustment Mayra Craft is a 74 y.o. female on vancomycin for PNA; ?HAP Objective Information: Vitals BP: 111/64 Temp: 98 ??F (36.7 ??C) Temp Source: Oral Heart Rate: 74 Resp: (!) 28 SpO2: 100 % Height: 172.7 cm (5' 8 ) Actual Weight: 58.6 kg (129 lb 1.6 oz) Renal Function: Baseline Scr: 0.3-0.7? mg/dL Lab Results Component Value Date CREATININE 0.30 (L) 08/24/2025 CREATININE 0.40 08/23/2025 CREATININE 0.40 08/22/2025 CREATININE 0.40 08/21/2025 CREATININE 0.50 08/20/2025 Estimated Creatinine Clearance: 147.6 mL/min (A) (by C-G formula based on SCr of 0.3 mg/dL (L)). Intake/Output: I/O last 2 completed shifts: In: 2175 [P.O.:20; I.V.:2004; IV Piggyback:150] Out: 600 [Urine:600] Culture Results: No results found for the last 90 days. Dose Assessment: Date of vancomycin initiation: 08/23 Current dose: 750 mg every 8 hours -Most recent level: Lab Results Component Value Date VANCOTROUGH 5.1 (L) 08/24/2025 -Time from end of last vancomycin infusion: 5.5 hour -Estimated true trough: < 4 mcg/mL -Estimated AUC: < 300 mcg*hr/mL (goal 400-600) -AUC Assessment: Subtherapeutic Plan: -Change dose to 1000 mg IV every 8 hours > unable to calculate kinetics; will dose per traditional monitoring of trough goal > 10 -Level: Next level due 08/25 @ ~1400, and will be ordered by a pharmacist. -Will continue daily monitoring of renal function, cultures/susceptibilities, and any changes to antibiotic plan. If there is a change in therapy to an alternative agent or the treatment duration ends, the pharmacist will sign off automatically. Otherwise, a pharmacist will continue to monitor vancomycin therapy. Please contact for further questions. Ron Peraza PharmD * Navdeep Cleary MD - 08/24/2025 12:48 PM EST Chronic Pain Service Follow-up Date of Consult: 08/24/2025 Patient: Mayra rCaft : 1950 Attending: Nadir Lewis MD Primary Care Physician: Vanessa Culver MD Admit Date: 08/19/2025 CPS consult day#: 3 Primary Problem: Principal Problem: Closed comminuted fracture of left humerus, initial encounter (POA: Yes) Reason For Consultation: Management of Acute on Chronic Pain HPI: Mayra Craft is a 74 y.o. 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 recent hospitalization 08/01-08/10 with SOB felt combo of slight CHF exacerbation and COPDE/PNA mucoid impaction,dced to SNF presented with worsening b/l shoulder pain after fall at SNF 4 days ago found to have L humeral Fx and RUE DVT seen at the request of Nadir Lewis MD for acute on chronic pain Home Regimen: - Suboxone 4-1 Mass PAT: - confirmed suboxone - Oxycodone 5, 30 pills, filled 08/12 - Oxycodone 5, 7 pills, filled 08/12 - Oxy 5, 86 pills filled 08/17 MME Calculations : with suboxone 4mg (120 MME) 08/25: total of 34 mg IV Morphine = 102 MME 08/24: Total of 99 mg IV Morphine = 297 MME 08/22: Dilaudid 4mg PO x4, moprhine IV 4mg x 3 = 212 MME 08/21: Dilaudid 4mg PO x 2, morphine 2mg IV x 1, moprhine 4mg IV x 6, oxycodone 5mg x1 = 245.5 08/20:Dilaudid 0.5 IV x3, morphine 2mg IV x2, morphine 4mg IV x2, oxycodone 5mg x 3 Interval History: Patient reports she is still having chronic bilateral shoulder pain. Would like to keep the SATURATION DIVER on.Reports that she had some imaging done earlier on her shoulder which exacerbated the pain she was having. Agreeable to increasing the Suboxone to twice daily overnight. CRP 293 > 255 > 208 >150 > 171 Cr of 0.30 WBC 10.66 Allergies: Tetracyclines and Gabapentin Medical/Surgical History: Past Medical History[1] Past Surgical History[2] Social/Family History: Social History[3] Family History[4] Current Medications: Scheduled Meds:Scheduled Medications[5] Continuous Infusions:Infusions Meds[6] PRN Meds:PRN Medications[7] Physical Exam: BP 111/64 (BP Location: Right arm, Patient Position: Lying) Pulse 74 Temp 98 ??F (36.7 ??C) (Oral) Resp (!) 28 Ht 1.727 m (5' 8 ) Wt 58.6 kg (129 lb 1.6 oz) SpO2 95% BMI 19.63 kg/m?? General: Patient is alert, well-appearing, in pain HEENT: Normocephalic, atraumatic. No obvious facial asymmetry or lesions. Cardiovascular: No peripheral edema. No cyanosis noted. Respiratory: Breathing comfortably at rest. No audible wheezes or respiratory distress. Musculoskeletal: Limited abduction of bilateral shoulder due to pain Neurologic: Alert and oriented. Speech fluent. Psychiatric: Pleasant, cooperative. Normal affect and behavior. Labs, Imaging & Other Studies which resulted at the time of signing this note were reviewed. Notable findings include: Impression: Mayra Craft is a 74 y.o. 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 recent hospitalization 08/01-08/10 with SOB felt combo of slight CHF exacerbation and COPDE/PNA mucoid impaction,dced to SNF presented with worsening b/l shoulder pain after fall at SNF 4 days ago found to have L humeral Fx and RUE DVT seen at the request of Nadir Lewis MD for acute on chronic pain Discharge Diagnoses Diagnosis POA Closed comminuted fracture of left humerus, initial encounter Yes Resolved Diagnoses No resolved problems to display. Patient with acute on chronic right and acute left shoulder pain in setting of multiple surgeries on right and traumatic fall on left. Shoulder pathology complicated by DVT on right. Has significant nociceptive pain in setting of chronic opioid use for chronic pancreatitis. Recommendations: Increase Suboxone to 4-1mg BID Continue Morphine SATURATION DIVER 2mg, lockout interval 6 minutes, no continuous dose, 1 hour lockout of 20mg Agree with Senna and Miralax BID. Encourage fluid intake as tolerated and PRN suppository to ensureadeuqate bowel movements in setting of opioid induced constipation Will consider additional analgesics such as lyrica and duloxetine. NSAID's contraindicated in setting of heparin gtt and cardiac history Thank you for the opportunity to be part of this patients care. CPS will Continue to follow up at this point. Please don't hesitate to reach out to the CPS consult team at [facility] [id number] (BID) in any concern or question regarding the pain management plan for this patient. If the patient requires outpatient follow up, please schedule an appointment at the [facility] by calling [phone]. This plan was communicated with the CPS attending Signed by: Navdeep Cleary MD Interventional pain fellow Greater than 50% of this 80 minute consultation was spent teaching, counseling, and coordinating care [1] Past Medical History: Diagnosis Date COPD (chronic obstructive pulmonary disease) ([facility]) [2] Past Surgical History: Procedure Laterality Date lung resection , left 2016 ARTHROPLASTY REVERSE SHOULDER Right 07/11/2025 Surgeon: Harpreet Goins MD; Location: [facility]; Service: Orthopaedics; Laterality: Right; ARTHROPLASTY REVERSE SHOULDER Right 08/01/2025 Surgeon: Harpreet Goins MD; Location: [facility]; Service: Orthopaedics; Laterality: Right; CARDIAC SURGERY INSERT PACEMAKER PERMANENT JOINT REPLACEMENT KNEE ARTHROSCOPY Left around 15 years ago rectus sheath hematoma [3] Social History Tobacco Use Smoking status: Former Current packs/day: 0.00 Average packs/day: 1.5 packs/day for 54.0 years (81.0 ttl pk-yrs) Types: Cigarettes Start date: 1962 Quit date: 2016 Years since quittin.9 Smokeless tobacco: Never Substance Use Topics Alcohol use: Never Drug use: Never [4] No family history on file. [5] ascorbic acid, 500 mg, Oral, Daily atorvaSTATin, 20 mg, Oral, Nightly buprenorphine-naloxone, 0.5 Film, Sublingual, Daily cefepime, 2 g, Intravenous, Q8H cholecalciferol, 1,000 Units, Oral, Daily cycloSPORINE, 1 drop, Both Eyes, BID ferrous sulfate, 325 mg, Oral, Daily with breakfast [Held by provider] furosemide, 20 mg, Oral, Daily levothyroxine, 50 mcg, Oral, Daily (0600) ynrgez-qhwrbknd-tqvnjea (pork), 48,000 units of lipase, Oral, TID with meals metoprolol tartrate, 12.5 mg, Oral, BID mometasone-formoterol, 2 puff, Inhalation, BID multivitamin with minerals tablet, 1 tablet, Oral, Daily omeprazole, 20 mg, Oral, Daily (0600) PARoxetine, 20 mg, Oral, QAM sodium chloride, 3 mL, Intravenous, Q12H KALEY polyethylene glycol, 17 g, Oral, BID potassium, sodium phosphates, 1 packet, Oral, TID before meals + QHS sacubitriL-valsartan, 0.5 tablet, Oral, BID sennosides, 17.2 mg, Oral, BID tiotropium bromide, 2 puff, Inhalation, Daily RT vancomycin, 750 mg, Intravenous, Q8H vancomycin per pharmacy protocol, 1 each, Miscellaneous, See Admin Instructions [6] heparin, 0-42 Units/kg/hr (Dosing Weight), Last Rate: 18 Units/kg/hr (08/24/25 1245) morphine (PF) in 0.9 % sodium chloride, [7] acetaminophen benzocaine-menthoL bisacodyl calcium carbonate guaiFENesin heparin AND heparin ipratropium-albuteroL LORazepam ondansetron OR ondansetron Insert and Maintain Peripheral IV AND sodium chloride AND sodium chloride simethicone Cosigned by Sandeep Viramontes MD at 08/24/2025 6:21 PM EST Associated attestation - Sandeep Viramontes MD - 08/24/2025 6:21 PM EST I saw the patient and participated in the landrum portions of the visit, including the medical decisionmaking. I reviewed today's note as written by Navdeep Cleary MD. I agree with the findings and plan of care. Sandeep Viramontes MD Patient was with 300 mg of oral morphine milligram equivalents yesterday now down to 100 mg/day. The addition of Suboxone in the evening. Patient will likely need suboxone to come off the SATURATION DIVER. * Nadir Lewis MD - 08/24/2025 9:04 AM EST HOSPITAL MEDICINE PROGRESS NOTE Patient: Mayra Craft Admit Date: 08/19/2025 LOS: 4 days Primary Care Physician: Vanessa Culver MD Interval Events: NAEO. Pain mediation use: 08/23: 59 MME Subjective: This AM, pt continues to feel unwell--had nausea in the AM that improved with Zofran. Continues to have the same bilateral arm pain. Unable to describe benefit from the SATURATION DIVER and does feel like using the SATURATION DIVER is tough given her limited range of motion and sometimes inaccessible to her. She continues to have right wrist pain, specifically with flexion with bruising tracking along IV site. Continues to require intermittent straight cath--does continue to describe difficulty with stream initiation in the outpatient setting. She continues to have constipation--has not had a bowel movement in > 24 hrs. Physical Exam Temp: [97.9 ??F (36.6 ??C)-98.6 ??F (37 ??C)] 98.1 ??F (36.7 ??C) Heart Rate: [71-93] 75 Resp: [16-18] 18 BP: (79-181)/(44-85) 152/85 SpO2: [75 %-100 %] 97 % General: Well appearing in no acute distress. HEENT: No scleral icterus. No conjunctival injection. Pulmonary: Mild crackles in bilateral bases. No increased work of breathing, on 4 L NC. Cardiovascular: Regular rate and rhythm. No murmurs, gallops, or rubs. Abdominal: Soft, non-tender, non-distended today. Extremities: No lower extremity edema. Warm and well perfused. MSK: Pt with large area of bruising around left arm (within marked area) and improving with ROM intact at shoulder, limited at elbow due to pain. Mild tenderness to palpation over right upper arm with c/d/I incision scar anteriorly + preserved ROM at shoulder, ROM limited over elbow due to pain. R wrist with bruising over R wrist, pain with flexion, improvement on extension--ROM intact though with pain. Neuro: Vision and hearing grossly intact. Face symmetric. Moving all four extremities purposefully. Psych: Alert and oriented. Normal affect. Data: I have reviewed the relevant labs, radiology studies, tracings, medical records. ASSESSMENT AND PLAN is a 74 y.o. 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 S/p R shoulder IR aspiration 08/22 to rule out septic arthritis. PLAN #Pain control #History of Opioid Use Disorder, on suboxone Pt with a history of opioid use disorder in setting of opioids for pancreatitis, recently started on suboxone (May). Requiring high amounts of opioids in this setting given her humerus fractureand post-R shoulder hemiarthroplasty. - Continue low dose suboxone, will increase today to BID per chronic pain recommendations - Chronic pain consulted, appreciate recommendations: Plan for Morphine SATURATION DIVER to assess pain requirement #R shoulder swelling/pain, c/f R shoulder septic arthritis #Chronic R rotator cuff arthropathy s/p R total shoulder arthroplasty 07/11/25, conversion to R shoulder hemiarthroplasty with glenoid and humeral implant on 08/01/25 #Chronic right shoulder dislocation Pt with increased R shoulder pain and swelling post-surgery on 08/01 w/concern for possible septic joint w/CRP of 293. Initially given antibiotics, but d/c'ed for IR procedure on 08/20 to increase yield of IR tap on 08/22. Awaiting culture results, but will hold off on further antibiotics at this time. X ray showing chronic anterior dislocation of the humeral head relative to the glenoid, ortho reviewed and no acute intervention required, and will follow-up OP (Dr. Goins). - Follow-up blood cultures - S/p vanc/cefepime on 08/19 - Follow-up joint cultures, no fluid studies resulted - See #Pain control as above #Acute on chronic hypoxic respiratory failure (bl 4L NC) #C/f HAP #Leukocytosis #Consolidative opacities in both lower lobes (from CT chest 08/19) #COPD Pt with noted consolidative opacities in both lower lobes from CT chest, initially w/o respiratory symptoms and baseline 4L NC. However, pt developed increased O2 requirements overnight, likely positional or 2/2 mucoid impaction; however, CXR still with evidence of PNA. Given pt was at rehab prior to current admission, treated recently for PNA with bactrim (08/01-08/10), and significant underlying lung disease will plan to treat for HAP. - Vanc/Cefepime 08/23 for 7 day course - MRSA swab + - ANALY[employer]ICAL DATA [employer]ER consultation appreciated, ok for regular diet - Continue home Dulera + Spiriva #L proximal humerus comminuted transverse fracture s/p fall Pt with a mechanical fall after misjudging where the toilet seat is and falling onto her L shoulder. Given persistent pain, presented to the ED. CT scan of L humerus showed acceptable alignment amenable to non-operative treatment with immobilization in a sling. - Ortho following, will plan for 1-2 week follow-up with L shoulder X-Ray - Activity restrictions: can come out of the sling for gentle pendulum range of motion. She may usethe left upper extremity for light activity daily living but no heavy lifting more than 5 pounds. - Pain control, see #Pain control as above - Appreciate OT evaluation #New R axillary vein DVT Pt with worsening R arm pain post-fall on L shoulder, w/increased swelling over right shoulder and lower arm. She was found on admission to have a new R axillary vein DVT. - Hep gtt started 08/20. Does not need to hold for IR drain of R shoulder. - Will send a test script for apixaban #Constipation Reports last BM being about a week ago, usually she makes a BM every day. -Senna/miralax scheduled + bisacodyl suppository PRN #Hyponatremia Pt with mild, asymptomatic hyponatremia (doreen of 128). Given pt's pain and poor mobility, concern for hypovolemic vs low solute hyponatremia. - Encourage PO intake - CTM CHRONIC CONDITIONS #Chronic HFrEF Nt-proBNP was normal 125 on admission w/no signs/symptoms of volume overload. - on home lasix 20mg MWF, restart 08/22 due to initial hypotension in ED (improved with 1L NS) - was holding entresto given hypotension, resumed 08/21 - daily weights, strict I&O #SSS s/p dcICD #NSVT PVC burden of 10% on prior Zio. - change metop succ 12.5 bid -> metop tart 12.5 bid given hypotension on arrival, now currently low 100s #Chronic iron deficiency anemia - baseline hb 9-10s - iron low on 08/03, ferritin 101. - continue po iron #Moderate malnutrition has lost >30lbs over last 6 months d/t poor appetite. Hypocalcemia corrected to ~9 w/albumin. - multivitamins, ensure tid, nutrition consult. Need help with food due to b/l arm pain #Hypothyroidism - levothyroxine 50 #Anxiety/depression - ativan 0.5 bid -> changed to BID PRN due to high dose opioid use, c/h paroxetine 20 #GERD - omeprazole #HLD - lipitor. #Nonobstructive CAD - asa 81, stop while on therapeutic AC for now Core Measures Nutrition: Oral. Hydration: Oral. Functional status: Out of bed to chair with assist. Bowel Function: Constipated. Lines/Tubes/Drains: Peripheral IV. VTE prophylaxis: Therapeutic anticoagulation. Living Situation: lives alone. Though recently coming from rehab. PAML Status: The preadmission medication list is ACCURATE and COMPLETE.. Anticipated Disposition: Acute rehabilitation vs SNF. Anticipated Length of Stay: 4-5 days. Advanced Care Planning: Full Code. Contacts/HCP/Surrogate: Extended Emergency Contact Information Primary Emergency Contact: Ashanti Green Address: [address] [place] [address] Mobile Relation: Daughter Secondary Emergency Contact: Rory Craft Address: [address] [place] [id number] [place] [address] Mobile Relation: Son E/M Services: I spent 50 minutes in this clinical encounter reviewing the medical record, seeing and examining the patient, placing orders, writing notes, performing signout, and communicating with the applicable medical and nursing teams. Nadir Lewis MD Attending Physician Section of Hospital Medicine [facility] Hyponatremia (present on admission) : Labs repeated - Sodium of 128 on 08/22/2025 Acute kidney injury (present on admission) : Labs repeated Admission creatinine increased by > 1.5x preadmission baseline Anemia secondary to chronic disease and inflammation (present on admission) : Labs repeated - Hemoglobin of 9 on 08/22/2025 * Ron Peraza PharmD - 08/23/2025 12:55 PM EST Pharmacy To Dose Vancomycin - Initiation Mayra Craft is a 74 y.o. female starting vancomycin for HAP? Worsening AHRF Objective Information: Vitals BP: 103/53 Temp: 98.4 ??F (36.9 ??C) Temp Source: Oral Heart Rate: 73 Resp: 18 SpO2: (!) 91 % Height: 172.7 cm (5' 8 ) Actual Weight: 58.6 kg (129 lb 1.6 oz) Renal Function: Baseline Scr: 0.4-0.8 mg/dL Lab Results Component Value Date CREATININE 0.40 08/23/2025 CREATININE 0.40 08/22/2025 CREATININE 0.40 08/21/2025 CREATININE 0.50 08/20/2025 CREATININE 0.70 08/19/2025 Estimated Creatinine Clearance: 110.7 mL/min (by C-G formula based on SCr of 0.4 mg/dL). Intake/Output: I/O last 2 completed shifts: In: 276 [P.O.:180; I.V.:96] Out: 1500 [Urine:1500] ID/Micro Results: Results from last 7 days Lab Units 08/23/25 0849 08/23/25 0128 08/22/25 0657 08/21/25 0700 08/20/25 0731 08/19/25 1710 WBC K/uL 11.86* 11.77* 8.36 9.58 11.40* 11.86* No results found for the last 90 days. Assessment/Plan: This patient has the following risk factor(s) for supratherapeutic vancomycin levels: age >65 years -Will initiate vancomycin 750 mg IV q 8 hours -Predicted trough: 14.3 mcg/mL -Predicted AUC: 468 mcg*hr/mL (goal 400-600) Pharmacist will continue to monitor renal function, clinical status and order a level as clinicallynecessary If MRSA PCR is negative and vancomycin discontinued or a change in therapy is made to an alternative agent, the pharmacist will sign off automatically. Otherwise, a pharmacist will continue to monitor vancomycin therapy. Please contact for further questions. Ron Peraza PharmD * Navdeep Cleary MD - 08/23/2025 10:46 AM EST Chronic Pain Service Follow-up Date of Consult: 08/23/2025 Patient: Mayra Craft : 1950 Attending: Nadir Lewis MD Primary Care Physician: Vanessa Culver MD Admit Date: 08/19/2025 CPS consult day#: 2 Primary Problem: Principal Problem: Closed comminuted fracture of left humerus, initial encounter (POA: Yes) Reason For Consultation: Management of Acute on Chronic Pain HPI: Mayra Craft is a 74 y.o. 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 recent hospitalization 08/01-08/10 with SOB felt combo of slight CHF exacerbation and COPDE/PNA mucoid impaction,dced to SNF presented with worsening b/l shoulder pain after fall at SNF 4 days ago found to have L humeral Fx and RUE DVT seen at the request of Nadir Lewis MD for acute on chronic pain Home Regimen: - Suboxone 4-1 Mass PAT: - confirmed suboxone - Oxycodone 5, 30 pills, filled 08/12 - Oxycodone 5, 7 pills, filled 08/12 - Oxy 5, 86 pills filled 08/17 MME Calculations : with suboxone 4mg (120 MME) 08/24: Total of 99 mg IV Morphine = 297 MME 08/22: Dilaudid 4mg PO x4, moprhine IV 4mg x 3 = 212 MME 08/21: Dilaudid 4mg PO x 2, morphine 2mg IV x 1, moprhine 4mg IV x 6, oxycodone 5mg x1 = 245.5 08/20:Dilaudid 0.5 IV x3, morphine 2mg IV x2, morphine 4mg IV x2, oxycodone 5mg x 3 Interval History: - See event note 08/23 12:34 AM: triggered for dyspnea and worsening acute hypoxic respiratory failure with repositioning, possibly related to de- recruitment of alveoli. Has been coughing, maybe at risk of aspiration, will eval for aspiration or PNA, currently appears relatively euvolemic on exam ho wever will eval for pulmonary edema as well iso hx HFrEF CRP 293 > 255 > 208 >150 Cr of 0.40 WBC 11.86 Hgb 8.2 - Reports ongoing pain, not better. - Pain is generalized. - Some functional improvement noted, able to sit up and has increased arm movement compared to yesterday. - Reports constipation. - Explained plan to convert SATURATION DIVER dose to an equivalent oral regimen once pain is better controlled and closer to discharge, which is not imminent. - Anticipate continuing SATURATION DIVER for at least another day. - A suppository is planned for today for constipation. Allergies: Tetracyclines and Gabapentin Medical/Surgical History: Past Medical History[1] Past Surgical History[2] Social/Family History: Social History[3] Family History[4] Current Medications: Scheduled Meds:Scheduled Medications[5] Continuous Infusions:Infusions Meds[6] PRN Meds:PRN Medications[7] Physical Exam: BP 128/62 (BP Location: Right leg, Patient Position: Lying) Pulse 73 Temp 97.6 ??F (36.4 ??C) (Oral) Resp 16 Ht 1.727 m (5' 8 ) Wt 58.6 kg (129 lb 1.6 oz) SpO2 94% BMI 19.63 kg/m?? General: Patient is alert, well-appearing, in pain HEENT: Normocephalic, atraumatic. No obvious facial asymmetry or lesions. Cardiovascular: No peripheral edema. No cyanosis noted. Respiratory: Breathing comfortably at rest. No audible wheezes or respiratory distress. Musculoskeletal: Limited abduction of bilateral shoulder due to pain Neurologic: Alert and oriented. Speech fluent. Psychiatric: Pleasant, cooperative. Normal affect and behavior. Labs, Imaging & Other Studies which resulted at the time of signing this note were reviewed. Notable findings include: Impression: Mayra Craft is a 74 y.o. 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 recent hospitalization 08/01-08/10 with SOB felt combo of slight CHF exacerbation and COPDE/PNA mucoid impaction,dced to SNF presented with worsening b/l shoulder pain after fall at SNF 4 days ago found to have L humeral Fx and RUE DVT seen at the request of Nadir Lewis MD for acute on chronic pain Discharge Diagnoses Diagnosis POA Closed comminuted fracture of left humerus, initial encounter Yes Resolved Diagnoses No resolved problems to display. Patient with acute on chronic right and acute left shoulder pain in setting of multiple surgeries on right and traumatic fall on left. Shoulder pathology complicated by DVT on right. Has significant nociceptive pain in setting of chronic opioid use for chronic pancreatitis. Recommendations: Continue Morphine SATURATION DIVER 2mg, lockout interval 6 minutes, no continuous dose, 1 hour lockout of 20mg Agree with Senna and Miralax BID. Encourage fluid intake as tolerated and PRN suppository to ensureadeuqate bowel movements in setting of opioid induced constipation Will consider additional analgesics such as lyrica and duloxetine. NSAID's contraindicated in setting of heparin gtt and cardiac history Thank you for the opportunity to be part of this patients care. CPS will Continue to follow up at this point. Please don't hesitate to reach out to the CPS consult team at [facility] [id number] (BID) in any concern or question regarding the pain management plan for this patient. If the patient requires outpatient follow up, please schedule an appointment at the [facility] by calling [phone]. This plan was communicated with the CPS attending Signed by: Navdeep Cleary MD Interventional pain fellow Greater than 50% of this 80 minute consultation was spent teaching, counseling, and coordinating care [1] Past Medical History: Diagnosis Date COPD (chronic obstructive pulmonary disease) ([facility]) [2] Past Surgical History: Procedure Laterality Date lung resection , left 2017 ARTHROPLASTY REVERSE SHOULDER Right 07/11/2025 Surgeon: Harpreet Goins MD; Location: [facility]; Service: Orthopaedics; Laterality: Right; ARTHROPLASTY REVERSE SHOULDER Right 08/01/2025 Surgeon: Harpreet Goins MD; Location: [facility]; Service: Orthopaedics; Laterality: Right; CARDIAC SURGERY INSERT PACEMAKER PERMANENT JOINT REPLACEMENT KNEE ARTHROSCOPY Left around 15 years ago rectus sheath hematoma [3] Social History Tobacco Use Smoking status: Former Current packs/day: 0.00 Average packs/day: 1.5 packs/day for 54.0 years (81.0 ttl pk-yrs) Types: Cigarettes Start date: 1962 Quit date: 2016 Years since quittin.9 Smokeless tobacco: Never Substance Use Topics Alcohol use: Never Drug use: Never [4] No family history on file. [5] ascorbic acid, 500 mg, Oral, Daily atorvaSTATin, 20 mg, Oral, Nightly buprenorphine-naloxone, 0.5 Film, Sublingual, Daily calcium carbonate, 500 mg, Oral, Daily cholecalciferol, 1,000 Units, Oral, Daily cycloSPORINE, 1 drop, Both Eyes, BID ferrous sulfate, 325 mg, Oral, Daily with breakfast furosemide, 20 mg, Oral, Once per day on Wednesday levothyroxine, 50 mcg, Oral, Daily (0600) nqipll-hzbpqdcc-hwhdklt (pork), 48,000 units of lipase, Oral, TID with meals metoprolol tartrate, 12.5 mg, Oral, BID mometasone-formoterol, 2 puff, Inhalation, BID multivitamin with minerals tablet, 1 tablet, Oral, Daily omeprazole, 20 mg, Oral, Daily (0600) PARoxetine, 20 mg, Oral, QAM sodium chloride, 3 mL, Intravenous, Q12H KALEY polyethylene glycol, 17 g, Oral, BID sacubitriL-valsartan, 0.5 tablet, Oral, BID sennosides, 17.2 mg, Oral, BID tiotropium bromide, 2 puff, Inhalation, Daily RT [6] heparin, 0-42 Units/kg/hr (Dosing Weight), Last Rate: 16 Units/kg/hr (08/23/25 0936) morphine (PF) in 0.9 % sodium chloride, [7] acetaminophen benzocaine-menthoL bisacodyl calcium carbonate heparin AND heparin ipratropium-albuteroL LORazepam Insert and Maintain Peripheral IV AND sodium chloride AND sodium chloride simethicone Cosigned by Sandeep Viramontes MD at 08/23/2025 7:43 PM EST Associated attestation - Sandeep Viramontes MD - 08/23/2025 7:43 PM EST I saw the patient and participated in the landrum portions of the visit, including the medical decisionmaking. I reviewed today's note as written by Navdeep Cleary MD. I agree with the findings and plan of care. Sandeep Viramontes MD Patient noted to have used about 100 mg of morphine in 24 hours. She has achieved much better pain control. I discussed with her the opportunity to further add more buprenorphine to help with the pain. We can discuss this further tomorrow. She would need at least another 6 mg of buprenorphine. * Nadir Lewis MD - 08/23/2025 8:24 AM EST [facility] MEDICINE PROGRESS NOTE Patient: Mayra Craft Admit Date: 08/19/2025 LOS: 3 days Primary Care Physician: Vanessa Culver MD Interval Events: Overnight, pt triggered for dyspnea and worsening AHRF post-repositioning, able to be weaned down to 6 L during trigger, now at 4L. Pain requirements 08/22: 10.5 mg (prior to SATURATION DIVER) + 34 MME Subjective: This AM, pt continues to have left arm pain, localized to elbow, and right shoulder + arm pain. Cannot tell if the morphine helps at all and feels that the pain is stable at a 10/10. She does feel that her breathing is improved from overnight when she describes being startled awake and then having a persistent shortness of breath with increased mucus production this AM. Otherwise, pt has not had a bowel movement for the past 24 hours. She did have an episode of urinary retention overnight, requiring straight cath for 1.5L. Continues to have some abdominal discomfortthat she attributes to constipation + urinary retention. Physical Exam Temp: [97.5 ??F (36.4 ??C)-98 ??F (36.7 ??C)] 97.6 ??F (36.4 ??C) Heart Rate: [68-93] 73 Resp: [16-23] 16 BP: (91-154)/(60-87) 128/62 SpO2: [86 %-100 %] 94 % General: Well appearing in no acute distress. HEENT: No scleral icterus. No conjunctival injection. Pulmonary: Mild crackles in bilateral bases. No increased work of breathing. Cardiovascular: Regular rate and rhythm. No murmurs, gallops, or rubs. Abdominal: Soft, non-tender, mildly distended. Extremities: No lower extremity edema. Warm and well perfused. MSK: Pt with large area of bruising around left arm (within marked area) with ROM intact at shoulder, limited at elbow due to pain. Mild tenderness to palpation over right upper arm with c/d/I incision scar anteriorly + preserved ROM at shoulder, ROM limited over elbow due to pain. Neuro: Vision and hearing grossly intact. Face symmetric. Moving all four extremities purposefully. Psych: Alert and oriented. Normal affect. Data: I have reviewed the relevant labs, radiology studies, tracings, medical records. ASSESSMENT AND PLAN is a 74 y.o. 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 S/p R shoulder IR aspiration 08/22 to rule out septic arthritis. PLAN #Pain control #History of Opioid Use Disorder, on suboxone Pt with a history of opioid use disorder in setting of opioids for pancreatitis, recently started on suboxone (May). Requiring high amounts of opioids in this setting given her humerus fractureand post-R shoulder hemiarthroplasty. - Continue low dose - Chronic pain consulted, appreciate recommendations: Plan for Morphine SATURATION DIVER to assess pain requirement #R shoulder swelling/pain, c/f R shoulder septic arthritis #Chronic R rotator cuff arthropathy s/p R total shoulder arthroplasty 07/11/25, conversion to R shoulder hemiarthroplasty with glenoid and humeral implant on 08/01/25 #Chronic right shoulder dislocation Pt with increased R shoulder pain and swelling post-surgery on 08/01 w/concern for possible septic joint w/CRP of 293. Initially given antibiotics, but d/c'ed for IR procedure on 08/20 to increase yield of IR tap on 08/22. Awaiting culture results, but will hold off on further antibiotics at this time. X ray showing chronic anterior dislocation of the humeral head relative to the glenoid, ortho reviewed and no acute intervention required, and will follow-up OP (Dr. Goins). - Follow-up blood cultures - S/p vanc/cefepime on 08/19 - Follow-up joint cultures, no fluid studies resulted - See #Pain control as above #Acute on chronic hypoxic respiratory failure (bl 4L NC) #C/f HAP #Leukocytosis #Consolidative opacities in both lower lobes (from CT chest 08/19) #COPD Pt with noted consolidative opacities in both lower lobes from CT chest, initially w/o respiratory symptoms and baseline 4L NC. However, pt developed increased O2 requirements overnight, likely positional or 2/2 mucoid impaction; however, CXR still with evidence of PNA. Given pt was at rehab prior to current admission, treated recently for PNA with bactrim (08/01-08/10), and significant underlying lung disease will plan to treat for HAP. - Vanc/Cefepime 08/23 for 7 day course - MRSA swab - ANALYTICAL DATA MINER consultation appreciated, ok for regular diet - Continue home Dulera + Spiriva #L proximal humerus comminuted transverse fracture s/p fall Pt with a mechanical fall after misjudging where the toilet seat is and falling onto her L shoulder. Given persistent pain, presented to the ED. CT scan of L humerus showed acceptable alignment amenable to non-operative treatment with immobilization in a sling. - Ortho following, will plan for 1-2 week follow-up with L shoulder X-Ray - Activity restrictions: can come out of the sling for gentle pendulum range of motion. She may usethe left upper extremity for light activity daily living but no heavy lifting more than 5 pounds. - Pain control, see #Pain control as above - Appreciate OT evaluation #New R axillary vein DVT Pt with worsening R arm pain post-fall on L shoulder, w/increased swelling over right shoulder and lower arm. She was found on admission to have a new R axillary vein DVT. - Hep gtt started 08/20. Does not need to hold for IR drain of R shoulder. - Will send a test script for apixaban #Constipation Reports last BM being about a week ago, usually she makes a BM every day. -Senna/miralax scheduled + bisacodyl suppository PRN #Hyponatremia Pt with mild, asymptomatic hyponatremia (doreen of 128). Given pt's pain and poor mobility, concern for hypovolemic vs low solute hyponatremia. - Encourage PO intake - CTM CHRONIC CONDITIONS #Chronic HFrEF Nt-proBNP was normal 125 on admission w/no signs/symptoms of volume overload. - on home lasix 20mg MWF, restart 08/22 due to initial hypotension in ED (improved with 1L NS) - was holding entresto given hypotension, resumed 08/21 - daily weights, strict I&O #SSS s/p dcICD #NSVT PVC burden of 10% on prior Zio. - change metop succ 12.5 bid -> metop tart 12.5 bid given hypotension on arrival, now currently low 100s #Chronic iron deficiency anemia - baseline hb 9-10s - iron low on 08/03, ferritin 101. - continue po iron #Moderate malnutrition has lost >30lbs over last 6 months d/t poor appetite. Hypocalcemia corrected to ~9 w/albumin. - multivitamins, ensure tid, nutrition consult. Need help with food due to b/l arm pain #Hypothyroidism - levothyroxine 50 #Anxiety/depression - ativan 0.5 bid -> changed to BID PRN due to high dose opioid, c/h paroxetine 20 #GERD - omeprazole #HLD - lipitor. #Nonobstructive CAD - asa 81, stop while on therapeutic AC for now Core Measures Nutrition: Oral. Hydration: Oral. Functional status: Out of bed to chair with assist. Bowel Function: Constipated. Lines/Tubes/Drains: Peripheral IV. VTE prophylaxis: Therapeutic anticoagulation. Living Situation: lives alone. Though recently coming from rehab. PAML Status: The preadmission medication list is ACCURATE and COMPLETE.. Anticipated Disposition: Acute rehabilitation vs SNF. Anticipated Length of Stay: 4-5 days. Advanced Care Planning: Full Code. Contacts/HCP/Surrogate: Extended Emergency Contact Information Primary Emergency Contact: Rory Craft Address: [address] [place] [address] [facility] Mobile Relation: Son Secondary Emergency Contact: Ashanti Green Address: [address] [place] [id number] [place] [address] Mobile Relation: Daughter E/M Services: I spent 80 minutes in this clinical encounter reviewing the medical record, seeing and examining the patient, placing orders, writing notes, performing signout, and communicating with the applicable medical and nursing teams. Nadir Lewis MD Attending Physician Section of Hospital Medicine [facility] Complexity Bundle Hyponatremia (present on admission) : Labs repeated - Sodium of 128 on 08/22/2025 Anemia secondary to chronic disease and inflammation (present on admission) : Labs repeated - Hemoglobin of 9 on 08/22/2025 * Nadir Lewis MD - 08/22/2025 6:13 PM EST Physician Clarification The following accurately represents the etiology of the documented fracture (left humerus): Traumatic fracture * Belle Lucero OT - 08/22/2025 2:30 PM EST OCCUPATIONAL THERAPY PROGRESS NOTE Rehabilitation Services - Inpatient Occupational Therapy Level of Care: Floor Interdisciplinary Recommendations OT Discharge rec: (Rehab) Movement Precautions: ROM, Bracing/Orthoses WB Status: Extremity Weight Bearing Status: Left Upper Extremity, Right Upper Extremity LUE Weight Bearing: CCWB (<5 lbs); okay to remove sling for gentle pendulums and elbow, wrist, digit ROM RUE Weight Bearing: NWB (sling for comfort; okay for elbow, wrist, digit ROM) Activity and Mobility Recommendations: [x]Patient is at high risk for deconditioning. Please maximize independence in ADLs and encourage frequent mobility including: Lift for all mobility including transfers to chair 3x/day [x]Patient is at risk for pressure injury. Please limit sitting time to one hour on standard air cushion given patient???s inability to effectively reposition in chair. [x]Patient is at risk for falls. Please use chair alarm when out of bed. [x]Patient is at risk for delirium. Please consider implementing strategies to reduce risk including: OOB to chair 3 day for all meals Familiar pictures and items within view News or nonverbal music on during daytime Lights on during day with shades UP Frequent Reorientation to clock, calendar, and window Encourage participation with ADLs Encourage family presence at bedside *For questions please check the patient???s care team for the most updated OT contact information [x]Updated medical status including labs, radiology, procedures and medications since previous visit reviewed SUBJECTIVE: How long will it feel this painful? Patient goal and desires: none specified; pt agreeable to participate in bed- level session OBJECTIVE: CLIENT FACTORS: Mental Functions: Level of Consciousness: Alert Orientation Level: Oriented X4 Following Directions: Follows all directions without difficulty Success rate following directions: 100% of the time Patient Behaviors/Mood: Anxious, Sad Memory: Intact (recalls this therapist from previous hospital admission) Attention to Tasks: Attends to task, Attends to conversation Insight: fair insight into current functional limitations Functional Communication: Intact (able to make needs known effectively) OCCUPATIONS: Current Activities of Daily Living: Feeding: Maximal assistance (drinking beverage; limited by BUE pain and BUE ROM limitations) Where Assessed - Feeding: Bed level Toileting Hygiene: Maximal assistance (female purewick) Functional Mobility Bed Mobility: Supine to Sit: Activity does not occur Sit to Supine: Activity does not occur Transfers: Sit to Stand: Activity does not occur Stand to Sit: Activity does not occur Gait: Ambulation Assistance: Activity does not occur Comment: Pt seen today for session focused on BUE therapeutic exercises. Pt defers all functional mobility on this date in the setting of 10 pain and having transferred from the chair back to bed with RN just prior to OT session. Acute OT will continue to assess and progress functional mobility during OT sessions as appropriate and able. [x]Vital signs monitored and found to be within normal limits with exceptions noted in Flowsheets/detailed below Hemodynamic Response/Aerobic Capacity VSS throughout Pain: 10/10 at rest. 10/10 with activity. 10/10 at recovery. Location: R shoulder/UE, L shoulder/UE Quality: awful Intervention: repositioning Ice pack provided notified RN and MD Limiting Symptoms: Pain Fatigue Additional Tests/Measures: n/a Team Communication: Communicated with [x]RN [x]MD []PT []CM RE: Patient status, pt reported pain []Rodeo Clown utilized for session Intervention: Patient/Caregiver Education RE: Role of OT OT plan of care Discharge recommendations ADL strategies ROM Energy conservation Interventional ROM Activity tolerance training BUE There-ex: - L wrist flexion/extension, AAROM, x10 reps - R wrist flexion/extension, AAROM, x10 reps - L digits composite fist/extension, AAROM, x5 reps - R digits composite fist/extension, AAROM, x3 reps (pt unable to tolerate any further, requesting to stop exercises at this time) Pt left supine with all needs in reach, bed alarm for safety, MD present at bedside. ASSESSMENT/CLINICAL IMPRESSION: Mayra Craft is a 74 y.o. female with history of chronic R rotatorcuff arthropathy s/p R total shoulder arthroplasty (07/11/25), s/p conversion to R shoulder hemiarthroplasty with glenoid and humeral implant (08/01/25), discharged to SNF who presents to occupational therapy during hospitalization for worsening b/l shoulder pain after fall at SNF, found to have L humeral fx and RUE DVT, now s/p IR aspiration of right shoulder (08/22/25 9am) to rule out septic arthritis. Pt seen today for OT session focused on BUE ROM and bed-level therapeutic exercises. Pt is demonstrating improvements in occupational engagement as evidenced by improved tolerance and performance of BUE ROM exercises. However, pt continues to present well below baseline limited by impairments in functional mobility and balance, ADL performance, BUE ROM, BUE strength, and overall activity tolerance. Pt additionally limited on this date in the setting of 10/10 BUE pain. 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 Due to pt current impairments and their impact on occupational engagement, pt will most benefit from d/c to interdisciplinary rehab. Acute OT will continue to follow and progress per intervention plan. Treatment Plan: ADL retraining, Balance training, Bed mobility, Equipment evaluation/education, Fine motor coordination activities, Functional mobility training, IADL retraining, Patient/family education, Upper extremity strengthening, Upper extremity ROM Patient agrees with the above goals and is willing to participate in the rehabilitation program: Yes Time: [id number] Occupational Therapist Name: Belle Lucero OT Occupational Therapist Pager: [phone] Occupational Therapist License: [id number] * Nadir Lewis MD - 08/22/2025 10:08 AM EST [facility] MEDICINE PROGRESS NOTE Patient: Mayra Craft Admit Date: 08/19/2025 LOS: 2 days Primary Care Physician: Vanessa Culver MD Interval Events: Had an episode of 'chest strain' -- EKG w/NSR w/o ischemic changes. Denied any true CP, concerned that it was her pancreatitis or related to BMs, improved with simethicone + bowel regimen. Subjective: Saw pt after her right shoulder aspiration. Pt reports that she has continued pain over her right shoulder and her left arm. Feels that the pain is not very well controlled by current pain regimen. She does report improvement in her 'chest pain' which she described more as upper left quadrant abdominal pain right under her last rib. She was concerned it was 2/2 pancreatitis; however, reassured that it improved with a large bowel movement overnight. She has opioid use disorder 2/2 opioids given to treat pancreatitis for about 20 years. Started suboxone in May. [place] that at the height of her opioid use, her pain wasn't well controlled, but she would take the opioids to prevent withdrawal. In terms of her oxygen requirement, she does use up to 4 L of O2 at home when she feels that she needs it (doesn't regularly check her O2 sats), will need it up to 1x/day and uses it at night. She was told by her white shoe examiner to use it when her O2 sat goes below 90. Physical Exam Temp: [97.1 ??F (36.2 ??C)-98.1 ??F (36.7 ??C)] 97.7 ??F (36.5 ??C) Heart Rate: [71-93] 71 Resp: [16-23] 22 BP: (99-153)/(65-87) 99/73 SpO2: [94 %-100 %] 100 % General: Well appearing in no acute distress. HEENT: No scleral icterus. No conjunctival injection. Pulmonary: Clear to ascultation bilaterally. No wheezes, rales, or rhonchi. No increased work of breathing. Cardiovascular: Regular rate and rhythm. No murmurs, gallops, or rubs. Abdominal: Soft, non-tender, mildly distended. Extremities: No lower extremity edema. Warm and well perfused. MSK: Pt with large area of bruising around left arm (within marked area) with ROM intact at shoulder, limited at elbow due to pain. Mild tenderness to palpation over right upper arm with c/d/I incision scar anteriorly. Neuro: Vision and hearing grossly intact. Face symmetric. Moving all four extremities purposefully. Psych: Alert and oriented. Normal affect. Data: I have reviewed the relevant labs, radiology studies, tracings, medical records. ASSESSMENT AND PLAN is a 74 y.o. 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 S/p R shoulder IR aspiration 08/22 to rule out septic arthritis. PLAN #Pain control #History of Opioid Use Disorder, on suboxone Pt with a history of opioid use disorder in setting of opioids for pancreatitis, recently started on suboxone (May). Requiring high amounts of opioids in this setting given her humerus fractureand post-R shoulder hemiarthroplasty. - Continue low dose - Chronic pain consulted, appreciate recommendations: Plan for Morphine SATURATION DIVER to assess pain requirement #R shoulder swelling/pain, c/f R shoulder septic arthritis #Chronic R rotator cuff arthropathy s/p R total shoulder arthroplasty 07/11/25, conversion to R shoulder hemiarthroplasty with glenoid and humeral implant on 08/01/25 #Chronic right shoulder dislocation Pt with increased R shoulder pain and swelling post-surgery on 08/01 w/concern for possible septic joint w/CRP of 293. Initially given antibiotics, but d/c'ed for IR procedure on 08/20 to increase yield of IR tap on 08/22. Awaiting culture results, but will hold off on further antibiotics at this time. X ray showing chronic anterior dislocation of the humeral head relative to the glenoid, ortho reviewed and no acute intervention required, and will follow-up OP (Dr. Goins). - Follow-up blood cultures - S/p vanc/cefepime on 08/19 - Follow-up joint cultures, no fluid studies resulted - See #Pain control as above #L proximal humerus comminuted transverse fracture s/p fall Pt with a mechanical fall after misjudging where the toilet seat is and falling onto her L shoulder. Given persistent pain, presented to the ED. CT scan of L humerus showed acceptable alignment amenable to non-operative treatment with immobilization in a sling. - Ortho following, will plan for 1-2 week follow-up with L shoulder X-Ray - Activity restrictions: can come out of the sling for gentle pendulum range of motion. She may usethe left upper extremity for light activity daily living but no heavy lifting more than 5 pounds. - Pain control, see #Pain control as above - Appreciate OT evaluation #New R axillary vein DVT Pt with worsening R arm pain post-fall on L shoulder, w/increased swelling over right shoulder and lower arm. She was found on admission to have a new R axillary vein DVT. - Hep gtt started 08/20. Does not need to hold for IR drain of R shoulder. - Will send a test script for apixaban #Consolidative opacities in both lower lobes (from CT chest 08/19) Suspected PNA vs mucoid impaction, though may be slow resolving from prior admission for shortness of breath. Pt with no respiratory sx of cough/SOB, at baseline 4L NC, minimally elevated wbc with normal lactate. Will continue to monitor and low threshold to restart anbitioitics if any worsening [id number], signs/symptoms of sepsis. - was treated with bactrim 08/01-08/10 for PNA - ANALYTICAL DATA MINER consultation appreciated, ok for regular diet #Constipation Reports last BM being about a week ago, usually she makes a BM every day. -Senna/miralax scheduled + bisacodyl suppository PRN CHRONIC CONDITIONS #Chronic HFrEF Nt-proBNP was normal 125 on admission w/no signs/symptoms of volume overload. - on home lasix 20mg MWF, restart 08/22 due to initial hypotension in ED (improved with 1L NS) - was holding entresto given hypotension, resumed 08/21 - daily weights, strict I&O #COPD #Chronic hypoxic respiratory failure 4L NC - not in exacerbation, continue nebs #SSS s/p dcICD #NSVT PVC burden of 10% on prior Zio. - change metop succ 12.5 bid -> metop tart 12.5 bid given hypotension on arrival, now currently low 100s #Chronic iron deficiency anemia - baseline hb 9-10s - iron low on 08/03, ferritin 101. - continue po iron #Moderate malnutrition has lost >30lbs over last 6 months d/t poor appetite - multivitamins, ensure tid, nutrition consult. Need help with food due to b/l arm pain #Hypothyroidism - levothyroxine 50 #Anxiety/depression - ativan 0.5 bid -> changed to BID PRN due to high dose opioid, c/h paroxetine 20 #GERD - omeprazole #HLD - lipitor. #Nonobstructive CAD - asa 81, stop while on AC for now Core Measures Nutrition: Oral. Hydration: Oral. Functional status: Out of bed to chair with assist. Bowel Function: Constipated. Lines/Tubes/Drains: Peripheral IV. VTE prophylaxis: Therapeutic anticoagulation. Living Situation: lives alone. Though recently coming from rehab. PAML Status: The preadmission medication list is ACCURATE and COMPLETE.. Anticipated Disposition: Acute rehabilitation vs SNF. Anticipated Length of Stay: 4-5 days. Advanced Care Planning: Full Code. Contacts/HCP/Surrogate: Extended Emergency Contact Information Primary Emergency Contact: Rory Craft Address: [address] [place] [address] [place] Mobile Relation: Son Secondary Emergency Contact: Ashanti Green Address: [address] [place] [address] [place] Mobile Relation: Daughter E/M Services: I spent 85 minutes in this clinical encounter reviewing the medical record, seeing and examining the patient, placing orders, writing notes, performing signout, and communicating with the applicable medical and nursing teams. Nadir Lewis MD Attending Physician Section of Hospital Medicine [facility] Bundle Hyponatremia (present on admission) : Labs repeated - Sodium of 128 on 08/22/2025 Anemia secondary to chronic disease and inflammation (present on admission) : Labs repeated - Hemoglobin of 9 on 08/22/2025 * Kamar Jackson OT - 08/21/2025 4:42 PM EST OCCUPATIONAL THERAPY INITIAL EVALUATION Rehabilitation Services - Inpatient OccupationalTherapy Level of Care: Floor Interdisciplinary Recommendations OT Discharge rec: Short-term Rehab Movement Precautions: ROM, Bracing/Orthoses WB Status: Extremity Weight Bearing Status: Left Upper Extremity, Right Upper Extremity LUE Weight Bearing : (CCWB (<5 lbs) Okay to remove sling for for gentle pendulums and elbow, wrist, hand ROM) RUE Weight Bearing : NWB (Sling for comfort per ortho 08/21. Okay for elbow, wrist and hand ROM.) Activity and Mobility Recommendations: [x]Patient is at high risk for deconditioning. Please maximize independence in ADLs and encourage frequent mobility including: Lift for all mobility including transfers to chair 3x/day vs stand pivotwith assistance if pain is tolerable []Patient is at risk for pressure injury. Please limit sitting time to one hour on standard air cushion given patient???s inability to effectively reposition in chair. [x]Patient is at risk for falls. Please use chair alarm when out of bed. []Patient is at risk for delirium. Please consider implementing strategies to reduce risk including: OOB to chair 3 day for all meals Familiar pictures and items within view News or nonverbal music on during daytime Lights on during day with shades UP Frequent Reorientation to clock, calendar, and window Encourage participation with ADLs Encourage family presence at bedside OCCUPATIONAL PROFILE: [x]HPI/Subjective Complaint, Past Medical/Surgical History, Medications, Radiology, and Labs reviewed Social/Occupational History/Personal Context Obtained from previous OT evaluation on 08/02/2025 Environmental Context Type of Home: House Home Layout: One level, Stairs to enter with rails (4-5 YUVAL, then patient lives on first level of home) Bathroom Shower/Tub: Tub only Bathroom Toilet: Standard Home Equipment: Cane, Oxygen Prior Function Leisure activities: pt reports she enjoys spending time with her dogs and being outside Lives With: Alone Receives Help From: Child(essie) (has 2 supportive daughters who live nearby) Provides Care/Help To: Pet (has four dogs) Current Services: None Mobility/ADL Assistance: Independent (ambulates with SC at baseline) Homemaking Assistance: Needs assistance (family members perform IADLs including cooking, grocery shopping, and cleaning) Transportation: Requires assistance from family/friends Number of Falls (last 12 months): 3 Cause of Fall(s): patient unable to recall the cause of her recent falls Fall History Reported By: Self 08/21/2025: patient presents from [facility]. Patient reports she was transferring out of bed with 1 assistat rehab and walking short distances in her room with a cane. Patient was requiring assistance for ADLs while at rehab. OBJECTIVE TESTS / CLIENT FACTORS Level of Consciousness: Alert Orientation Level: Oriented X4 Following Directions: Follows all directions without difficulty Success rate following directions: 100% of the time Patient Behaviors/Mood: Anxious Memory: Intact Attention to Tasks: Attends to task Tests of Attention: Intact, Days of week backwards OCCUPATIONS: Current Activities of Daily Living: Feeding: Maximal assistance (ice chips - limited by pain and inability to comfortably range elbows) Where Assessed - Feeding: Bed level Grooming: Maximal assistance Where Assessed - Grooming: Bed level Upper Body Bathing Assistance Required : Maximal assistance Upper Body Dressing Assistance Required: Maximal assistance (Don L sling) Where Assessed-Upper Body ADLs: Bed level Lower Body Dressing Assistance Required : Maximal assistance Toileting Hygiene: Maximal assistance Functional Mobility Bed Mobility: Supine to Sit: (Partially transitions supine to sit with HOB elevated x3 repetitions. Fearful of completing upright position despite 2A due to pain) Adaptive Equipment: HOB elevated Transfers: Sit to Stand: Activity does not occur Stand to Sit: Activity does not occur Bed to chair: Activity does not occur *despite max encouragement with 2A vs use of lift, patient declining oob today. Gait: Ambulation Assistance: Unable to assess, Activity does not occur Balance: Sitting - Static: Unable to assess Sitting - Dynamic: Unable to assess Standing - Static: Unable to assess Standing - Dynamic: Unable to assess [x]Vital signs monitored and found to be within normal limits with exceptions noted in Flowsheets/detailed below [x]Full systems body functions review completed and found to be within normal limits with the following exceptions: Functions of joints and bones: (joint mobility and stability i.e. subluxation) Muscle Functions: (strength, tone, endurance) LUE: shoulder ROM not assessed due to precautions, Tolerated gentle elbow ROM with AAROM/PROM. Wrist and digit ROM WFL. RUE: shoulder with chronic anterior deformity and new DVT. Appears edematous and reddened. Unable to tolerate gentle elbow ROM. Tolerates very brief wrist and digit ROM. Movement Functions: Coordination: Impaired due to pain/swelling Skin and related structure functions: Integumentary Ecchymosis noted at RUE Sensory Functions: Touch Functions/Sensitivity: Intact to light touch Denies paresthesias Visual Functions: Current Vision: No visual deficits Proprioceptive Functions: Not tested Pain: Patent in severe pain in B shoulders - pre -medicated with IV morphine, RN aware Limiting Symptoms: Pain Additional Tests/Measures: Team Communication: Communicated with [x]RN [x]MD []PT []CM RE: Patient status Intervention: Patient/Caregiver Education RE: Role of OT OT plan of care Discharge recommendations ROM DIAGNOSIS Impairments and Functional Limitations in Occupational Performance: ADL/Self-care, Altered balance, Decreased activity tolerance, Decreased ROM, Decreased strength/muscular endurance, Pain, Non-functional R UE, Non-functional L UE Clinical Impression/Prognosis: Mayra Craft is a 74 y.o. female with past medical history significant for MDD/CHRIS, opioid use disorder in sustained remission, SSS s/p dcICD, HFrEF (ef 40%) 2/2 niCM,moderate MR, NSVT with 10% PVC burden, non-obstructive CAD (CTA 2021). 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 recent hospitalization 08/01-08/10 with SOB felt combo ofslight CHF exacerbation and COPDE/PNA mucoid impaction, dced to SNF presented with worsening b/l shoulder pain after fall at SNF 4 days ago found to have L humeral Fx and RUE DVT. Planning for IR aspiration of right shoulder (08/22 9 am) to rule out septic arthritis. Based on the analysis of occupational performance, pt is functioning below baseline which is impacting successful occupational engagement. Specifically, pt is currently demonstrating impairments in pain, decreased ROM, decreased strength, and decreased balance. These impairments are impacting pt well-being and ability to participate in meaningful habits, routines and roles specific to previously independent adult. Positive prognostic indicators include: Baseline level of function, Strong social supports Limiting prognostic factors include: Multiple co-morbidities Due to pt current impairments and their impact on occupational engagement, pt will most benefit from d/c to interdisciplinary rehab. Acute OT will continue to follow and progress per intervention plan. Goals: Time Frame: 2 weeks - Patient will tolerate sitting OOB >1 hour/day. - Patient will tolerate gentle PROM or AAROM of BUE elbows, wrists, digits 2x/day. -Patient will participate in donning L sling with mod A. -Patient will complete commode tx with S. -Pt will ambulate to/from bathroom with S. Treatment Plan: ADL retraining, Balance training, Bed mobility, Fine motor coordination activities, Functional mobility training, IADL retraining, Patient/family education, Upper extremity strengthening, Upper extremity ROM Frequency/Duration: Min 1x/wk Patient agrees with the above goals and is willing to participate in the rehabilitation program: Yes Time: [id number] Occupational Therapist Name: Kamar Jackson OT License #[id number] Occupational Therapist Pager: [phone] Please check the patient???s care team for the most updated OT contact information * Sunita Avery MD - 08/21/2025 8:37 AM EST HOSPITAL MEDICINE PROGRESS NOTE Subjective Interval History: Having a lot of pain in her arms and shoulders on both side. Could not move at all due to pain. Feels the 1 mg IV dilaudid she received in the ED did not help much. Pain only started to settle a little after receiving total of 20 mg po oxy and 8 mg IV morphine this am. Saying she has been on low dose Suboxone since Sep this year. Also reports last BM was about a week ago, usually she makes a BM every day. Objective Vital signs in last 24 hours Temp Min: 97.4 ??F (36.3 ??C) Max: 98.2 ??F (36.8 ??C) BP Min: 91/65 Max: 139/86 Pulse Min: 69 Max: 105 Resp Min: 16 Max: 28 Weight Min: 58.7 kg (129 lb 6.4 oz) Max: 58.7 kg (129 lb 6.4 oz) O2 Flow Rate (L/min): 3 L/min O2 Device: None (Room air) Intake (mL) P.O.: 240 mL (Water w/ meds) Last BM Date: 08/12/25 Physical Exam: General: In pain. Awake and Alert. CV: Regular Rate and Rhythm. No Murmurs auscultated. Lungs: Respirations unlabored. Clear to auscultation bilaterally. Abdomen: Soft, nondistended, nontender, positive bowel sounds. Extremities: There is significant swelling and pain/tenderness in both arms and shoulders, especially upper arms. No lower extremity edema. Warm and well perfused. Neuro: Alert, oriented, face symmetric, gaze conjugate with EOMI, speech fluent, moves all limbs, however there is weakness in both arms due to pain with movement, sensation to light touch grossly intact throughout Psych: pleasant, appropriate affect I reviewed current medications. Scheduled Medications[1] Infusions Meds[2] PRN Medications[3] Labs, Imaging & Other Studies which resulted at the time of signing this note were reviewed. Laboratory: All recent labs have been reviewed. Pertinent labs include: Results from last 7 days Lab Units 08/21/25 0700 WBC K/uL 9.58 HEMOGLOBIN g/dL 8.4* HEMATOCRIT % 27.1* PLATELETS K/uL 270 Results from last 7 days Lab Units 08/21/25 0700 08/20/25 0732 SODIUM mmol/L 132* 132* POTASSIUM mmol/L 3.8 3.9 CHLORIDE mmol/L 96 98 CO2 mmol/L 27 24 BUN mg/dL 29* 29* CREATININE mg/dL 0.40 0.50 CALCIUM mg/dL 8.3* 8.3* TOTAL PROTEIN g/dL -- 6.2* BILIRUBIN TOTAL mg/dL -- 0.8 ALK PHOS U/L -- 156* ALT U/L -- 17 AST U/L -- 26 GLUCOSE mg/dL 124* 124* Results from last 7 days Lab Units 08/20/25 0732 APTT s 26 INR 1.2* Results from last 7 days Lab Units 08/20/25 0423 LACTIC ACID mmol/L 0.8 Microbiology: Results for orders placed or performed during the hospital encounter of 08/19/25 Culture, Blood Collection Time: 08/19/25 5:12 PM Specimen: Peripheral; Blood Result Value Ref Range Culture No Growth to date Imaging: @IMAGINGLAST1@ Pending Data: Pending Results Order Current Status C-Reactive Protein Collected (08/21/25 0710) XR Shoulder 1 VW Left In process CT Shoulder Left Without Contrast Preliminary result Culture, Blood Preliminary result Assessment/Plan Mayra Craft is a 74 y.o. 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 recent hospitalization 08/01-08/10 with SOB felt combo of slight CHF exacerbation and COPDE/PNA mucoid impaction, dced to SNF presented with worsening b/l shoulder pain after fall at SNF 4 days ago found to have L humeral Fx and RUE DVT. Planning for IR aspiration of right shoulder (08/22 9 am) to rule out septic arthritis. #L proximal humerus comminuted transverse fracture s/p fall - misjudging sitting down onto toilet seat, fell onto L shoulder - ortho reviewed CT, acceptable aligmment amenable to non-operative treatment, mmobilization in a sling. She can come out of the sling for gentle pendulum range of motion. She may use the left upper extremity for light activity daily living but no heavy lifting more than 5 pounds. - ortho followup 1-2 weeks followup xrays L shoulder - IV morphine, oxy, tylenol. Avoiding scheduled tylenol to avoid masking fever. Senna/miralax scheduled. Discussed with the pt the need to continue home suboxone while on acute pain opiates to dec risk of relapse and complication of re-initiation - Appreciate pain consult input - Appreciate OT eval #R shoulder swelling/pain, c/f R shoulder septic arthritis #Chronic R rotator cuff arthropathy s/p R total shoulder arthroplasty 07/11/25 then conversion to Rshoulder hemiarthroplasty with glenoid and humeral implant on 08/01/25 - significant continued swelling. Present after surgery last week, US then no DVT. CRP is significantly elevated at 293. -- Discussion with ortho, in agreement to r/o infection, rec IR tap. Discussed with IR, would like to wait 48 hours after abx given, will be wed 12/ am. The procedure it self doesn't need to be NPOor holding heparin gtt - will keep NPO after MN just in case she needs more sedation or pain meds per IR - fluid cultures ordered - bcx collected 08/19 pm, vanc/cefepime started then stop due to planned IR drain. Restart if becomeseptic, otherwise hold off abx #New right axillary vein DVT US RUE was negative 08/08 however repeat US 08/19 showed Nonocclusive deep vein thrombus of the right axillary vein. Scanned bilateral subclavian, right internal jugular, right brachial, and right axillary veins. The rest of upper extremities were not assessed as the patient was unable to tolerate the exam due to pain - hep gtt started 08/20. Does not need to hold for IR drain of R shoulder #Chronic right shoulder dislocation X ray showing chronic anterior dislocation of the humeral head relative to the glenoid - Ortho reviewed XR, no acute intervention on the right shoulder at this time, will fu dr Goins #Consolidative opacities in both lower lobes (from CT chest 08/19) Suspected PNA vs mucoid impaction - pt has no respiratory sx of cough/SOB, at baseline 4L NC, minimally elevated wbc with normal lactate. - CTA 08/19 Heterogeneous consolidative opacities in both lower lobes may reflect pneumonia - was treated with bactrim 08/01-08/10 for PNA - initial vanc/cefepime, on hold as above, monitor on continuous pulse ox, watch for signs of sepsis reinitate abx if needed - [employer] consultation appreciated, ok for regular diet #Constipation Reports last BM being about a week ago, usually she makes a BM every day. -Senna/miralax scheduled + bisacodyl suppository PRN #Chronic HFrEF -nt-proBNP was normal 125 on admission - does not appear volume overloaded - on home lasix 20mg MWF, restart 08/22 due to initial hypotension in ED (improved with 1L NS) - was holding entresto given hypotension, resumed 08/21 - daily weights, strict I&O #COPD #Chronic hypoxic respiratory failure 4L NC - not in exacerbation, continue nebs #SSS s/p dcICD #NSVT PVC burden of 10% on prior Zio. - change metop succ 12.5 bid -> metop tart 12.5 bid given hypotension on arrival, now currently low 100s #Chronic iron deficiency anemia - baseline hb 9-10s - iron low on 08/03, ferritin 101. - continue po iron #Moderate malnutrition has lost >30lbs over last 6 months d/t poor appetite - multivitamins, ensure tid, nutrition consult. Need help with food due to b/l arm pain Chronic problems #Hypothyroidism - levothyroxine 50 #Anxiety/depression - ativan 0.5 bid -> changed to BID PRN due to high dose opioid, c/h paroxetine 20 #GERD - omeprazole #HLD - lipitor. #Nonobstructive CAD - asa 81, stop while on AC for now Nutrition: Oral. Hydration: Oral. Functional status: Out of bed to chair with assist. Bowel Function: Constipated. Lines/Tubes/Drains: Peripheral IV. VTE prophylaxis: Therapeutic anticoagulation. Living Situation: SNF. Contacts/HCP/Surrogate and Communication: updated Rory Craft 08/21 Advanced Care Planning: Full Code. Anticipated Disposition: snf facility. Anticipated Length of Stay: 2-3 days..AC plan, IR tap 08/22 to r/o septic arthritis, if negative okay to dc from ortho perspective E/M Services: I spent 71 minutes in this clinical encounter reviewing the medical record, seeing and examining the patient, placing orders, writing notes, performing signout, and communicating with the applicable medical and nursing teams. Sunita Avery MD [facility] Medicine [1] ascorbic acid, 500 mg, Oral, Daily atorvaSTATin, 20 mg, Oral, Nightly buprenorphine-naloxone, 0.5 Film, Sublingual, Daily calcium carbonate, 500 mg, Oral, Daily cholecalciferol, 1,000 Units, Oral, Daily cycloSPORINE, 1 drop, Both Eyes, BID ferrous sulfate, 325 mg, Oral, Daily with breakfast furosemide, 20 mg, Oral, Once per day on Wednesday levothyroxine, 50 mcg, Oral, Daily (06) hylirg-oumpgkko-eykqdmh (pork), 48,000 units of lipase, Oral, TID with meals LORazepam, 0.5 mg, Oral, BID magnesium sulfate, 2 g, Intravenous, Once metoprolol tartrate, 12.5 mg, Oral, BID mometasone-formoterol, 2 puff, Inhalation, BID multivitamin with minerals tablet, 1 tablet, Oral, Daily omeprazole, 20 mg, Oral, Daily (0600) PARoxetine, 20 mg, Oral, QAM sodium chloride, 3 mL, Intravenous, Q12H KALEY polyethylene glycol, 17 g, Oral, Daily potassium chloride, 20 mEq, Oral, Once sennosides, 17.2 mg, Oral, QHS tiotropium bromide, 2 puff, Inhalation, Daily RT [2] heparin, 0-42 Units/kg/hr (Dosing Weight), Last Rate: 16 Units/kg/hr (08/21/25 0154) [3] acetaminophen benzocaine-menthoL bisacodyl calcium carbonate heparin AND heparin ipratropium-albuteroL morphine oxyCODONE Insert and Maintain Peripheral IV AND sodium chloride AND sodium chloride * Mike Mcgarry MD - 08/21/2025 5:48 AM EST Images from the original note were not included. Orthopedic Surgery Progress Note Patient: Mayra Craft Date: 08/21/2025 Hospital Day: Hospital Day: 3 Interval events: AFVSS, NAEON. Yesterday, CRP 293, WBC 11.40, H/H 06/10.7. Plan discussed with Dr. Joshua Cordova and Dr. Goins yesterday, pending IR aspiration of R shoulder. Will fu IR aspiration results. Once IR aspiration is completed, please make the patient provisionally NPO at midnight, pending review ofaspiration results in the morning. RUE U/S showed non occlusive DVT in R axillary vein, primary team started hep gtt. Objective: Temp: [97.4 ??F (36.3 ??C)-98.2 ??F (36.8 ??C)] 97.7 ??F (36.5 ??C) Heart Rate: [69-105] 80 Resp: [16-28] 18 BP: (91-128)/(65-88) 121/84 SpO2: [93 %-100 %] 97 % Physical Exam: Patient sleeping. Exam deferred due to janett protocol. Last exam below (08/19/25) alert, appears stated age, cooperative, and no distress Mayra Craft is a well developed well nourished female in no apparent distress. She is of normal mood and affect. Breathing easily. Pulse is of regular rate and rhythm. Musculoskeletal exam: Right upper extremity: Skin closed, clean dry and intact RUE globally edematous Arm, forearm, and hand compartments soft and compressible No pain with passive stretch of fingers and wrist Right shoulder tender to palpation +EPL/FPL/MATTHEW (index) weakly fire, limited 2/2 pain +SILT axillary/radial/median/ulnar nerve distributions +Radial pulse??, hand WWP ? Left upper extremity: Skin closed, clean dry and intact Left arm ecchymotic from shoulder to elbow Arm, forearm, and hand compartments soft and compressible No pain with passive stretch of fingers and wrist +EPL/FPL/MATTHEW (index) fire +SILT axillary/radial/median/ulnar nerve distributions +Radial pulse??, hand WWP Recent Labs 08/19/25 1710 08/20/25 0731 WBC 11.86* 11.40* HCT 29.6* 28.7* PLT 302 263 Recent Labs 08/19/25 1710 08/19/25 1712 08/20/25 0732 NA 130* -- 132* K 4.5 -- 3.9 CO2 25 -- 24 CL 96 100 -- 98 BUN 31* -- 29* CREATININE 0.70 -- 0.50 MG -- 2.1 1.9 PHOS -- -- 3.1 Recent Labs 08/19/25 1712 08/20/25 0732 INR -- 1.2* CRP 293.0* 293.0* Assessment & Plan: Venancio // [id number] L proximal humerus fx PMH: SSS s/p dual chamber PPM in 2022, severe emphysema, NYHA Class 2-3 (EF 40%), hypothyroidism, GERD, anxiety/depression, substance use disorder, s/p R TSA conversion to hemiarthroplasty with Dr. Goins on 08/01 P: NWB RUE in sling for comfort, CCWB LUE in sling at all times, ok to come out for gentle pendulumROM // hep gtt for RUE DVT // [x] CT L shoulder // [] IR aspiration R shoulder [] OT eval TO DO: [ ] IR aspiration R shoulder [ ] OT eval Mike Mcgarry MD Orthopaedic Surgery, PGY1 [facility] Orthopaedic Residency Program [facility] Pager: [phone] [facility] East Floor Pager: [phone] Ortho Spine Floor Pager: [phone] Consult Pager: [phone] documented in this encounter H&P Notes * Raquel Rea NP - 08/27/2025 8:34 AM EST Interventional Radiology Vascular Access Consult 08/27/25 REASON FOR CONSULT: We were consulted on Mayra Craft ([id number]) for evaluation of vascular access options. Type of line requested: Temporary triple lumen catheter Specific site: right neck HPI: Mayra Craft (BID #: [id number]) is a 74 y.o. female undergoing treatment for Septic arthritis left shoulder. Interventional radiology has been consulted to obtain vascular access to facilitate treatment. IR_COAGULOPATHY: None Is the patient anticoagulated?: Novel oral anti-coagulants (rivoroxaban, apixaban, dabigatran) Surgery, skin disorders or radiation at planned site?: no History of difficulty placing prior central venous?: no Is there a pacemaker in place?: left History of radical lymph node dissection: no MEDICATIONS: Current Medications[1] ALLERGIES: Allergies[2] FOCUSED PHYSICAL EXAM: Vitals: 08/27/25 0734 BP: (!) 146/74 Pulse: 71 Resp: 18 Temp: 97.6 ??F (36.4 ??C) SpO2: 98% AAOx4 Pulmonary: WNL Pulmonary: respiration relaxed. Cardiovascular: WNL Cardiovascular: wamr and well perfused ASA Classification: III - Severe Systemic Disease; limits activity but not incapacitating I have examined this patient and the patient is an acceptable candidate for this procedure and is acandidate for procedural sedation/analgesia. No history of anesthetic complications. Insertion site: right chest c/d/i Able to lie with head of bed raised < 30 degrees LABS: Results from last 7 days Lab Units 08/26/25 1137 WBC K/uL 5.90 HEMOGLOBIN g/dL 7.7* HEMATOCRIT % 24.8* PLATELETS K/uL 230 Results from last 7 days Lab Units 08/26/25 1137 POTASSIUM mmol/L 4.3 CREATININE mg/dL 0.40 Results from last 7 days Lab Units 08/22/25 0657 APTT s 75* INR 1.2* Microbiology: Recent bacteremia: No Positive blood cultures in the last 48 hours: No CODE STATUS: Full PRECAUTIONS: MRSA No active isolations Other services consulted regarding type of line/site: ASSESSMENT AND PLAN: Mayra Craft is a 74 y.o. female with Pain [R52] Acute pain of left shoulder [M25.512] Closed comminuted fracture of left humerus, initial encounter [S42.352A] and septic arthritis left shoulder who requires central venous access for treatment. Based on our review of the line requestedand verification with the services noted above, she has been consented for placement of a Temporarytriple lumen catheter catheter from a right neck venous access approach. I have spoken with patient providing the details of the procedure and associated risks. Risks of the procedure were explained to be, but not limited to, pain, bleeding, allergic/drug reaction, infection, embolus, pneumothorax, irregular heartbeat, damage to skin, blood vessels or other surrounding organs or structures which may require emergent surgery/hospitalization. Written informed consent has been obtained. The patient does not need to be NPO prior to the procedure. Thank you for involving us in the care of this patient. Please feel free to contact us if you have any questions or concerns. Raquel Rea NP [1] Current Facility-Administered Medications Medication Dose Route Frequency Provider Last Rate Last Admin acetaminophen (TYLENOL) tablet 650 mg 650 mg Oral Q6H PRN Albin Puentes DO 650 mg at 08/23/25 0925 aluminum-magnesium hydroxide-simethicone (Mylanta/Maalox) (200-200-20 mg)/5 mL suspension 30 mL 30 mL Oral Q6H PRN Nadir Lewis MD 30 mL at 08/25/25 1534 apixaban (ELIQUIS) tablet 5 mg 5 mg Oral BID Nadir Lewis MD ascorbic acid (VITAMIN C) tablet 500 mg 500 mg Oral Daily Albin Puentes DO 500 mg at 08/26/25 110 atorvaSTATin (LIPITOR) tablet 20 mg 20 mg Oral Nightly Albin Puentes DO 20 mg at 08/26/252028 benzocaine-menthoL (CHLORASEPTIC) 6-10 mg lozenge 1 lozenge 1 lozenge Mouth/Throat Q4H PRN Jaciel Mosquera MD bisacodyl (DULCOLAX) suppository 10 mg 10 mg Rectal Daily PRN Albin Puentes DO 10 mg at 08/26/25 155 buprenorphine-naloxone (SUBOXONE) 8-2 mg sublingual film 0.5 Film 0.5 Film Sublingual BID Nadir Lewis MD 0.5 Film at 08/26/252028 calcium carbonate (TUMS) chewable tablet 500 mg 500 mg Oral TID PRN Albin Puentes DO 500 mg at 08/26/252123 cholecalciferol (VITAMIN D3) tablet 1,000 Units 1,000 Units Oral Daily Albin Puentes, DO 1,000 Units at 08/26/25 1101 cycloSPORINE (RESTASIS) 0.05 % ophthalmic emulsion 1 drop 1 drop Both Eyes BID Albin Puentes DO 1 drop at 08/26/25 1103 ferrous sulfate tablet 325 mg 325 mg Oral Daily with breakfast Albin Puentes DO 325 mg at 08/26/25 110 [Held by provider] furosemide (LASIX) tablet 20 mg 20 mg Oral Daily Nadir Lewis MD guaiFENesin (ROBITUSSIN) 100 mg/5 mL syrup 200 mg 200 mg Oral Q4H PRN Matt Kidd MD 200 mgat 08/26/252126 ipratropium-albuteroL (DUONEB) 0.5-2.5 mg/3 mL nebulizer solution 3 mL 3 mL Nebulization Q6H PRN Albin Puentes DO 3 mL at 08/25/252199 levoFLOXacin (LEVAQUIN) tablet 750 mg 750 mg Oral Q24H Nadir Lewis MD levothyroxine (SYNTHROID, LEVOXYL) tablet 50 mcg 50 mcg Oral Daily (0600) Jaciel Torres MD 50 mcg at 08/27/25 0514 lidocaine HCL (URO-JET) 2 % jelly 5 mL 5 mL Urethral PRN Marianne Rose MD linezolid (ZYVOX) tablet 600 mg 600 mg Oral BID Nadir Lewis MD 600 mg at 08/26/252028 emdmuf-dcvqxptt-uhgvild (pork) (CREON) 24,000-76,000 -120,[address] capsule 48,000 units of lipase 48,000 units of lipase Oral TID with meals Albin Puentes DO 48,000 units of lipase at 08/26/25 185 LORazepam (ATIVAN) tablet 0.5 mg 0.5 mg Oral BID PRN Sunita Avery MD 0.5 mg at 08/26/252126 metoprolol tartrate (LOPRESSOR) tablet 12.5 mg 12.5 mg Oral BID Albin Puentes DO 12.5 mg at 9 mometasone-formoterol (Dulera) 100-5 mcg/actuation inhaler 2 puff 2 puff Inhalation BID Albin Puentes DO 2 puff at 08/26/252029 morphine (PF) in 0.9 % sodium chloride 1 mg/mL SATURATION DIVER Intravenous Continuous Nadir Lewis MD Rate Verify at 08/27/25 0600 Multivitamin with Minerals tablet 1 tablet 1 tablet Oral Daily Albin Puentes DO 1 tablet at 101 omeprazole (PriLOSEC) DR capsule 20 mg 20 mg Oral Daily (0600) Albin Puentes DO 20 mg at 08/27/25 0514 ondansetron (ZOFRAN) injection 4 mg 4 mg Intravenous Q8H PRN Nadir Lewis MD 4 mg at 08/25/25 1001 Or ondansetron (ZOFRAN-ODT) disintegrating tablet 4 mg 4 mg Oral Q8H PRN Nadir Lewis MD PARoxetine (PAXIL) tablet 20 mg 20 mg Oral QAM Albin Puentes DO 20 mg at 08/26/25 1102 peripheral line: sodium chloride (NS) 0.9% flush 3 mL Intravenous Q12H KALEY Albin Puentes DO 3 mL at 08/26/25 2030 And peripheral line: sodium chloride 0.9 % (NS) flush 3 mL Intravenous Q1 Min PRN Albin Puentes DO polyethylene glycol (MIRALAX) packet 17 g 17 g Oral BID Madeleine Rivas MD 17 g at 08/23/252127 pregabalin (LYRICA) capsule 75 mg 75 mg Oral BID Nadir Lewis MD 75 mg at 08/26/25 2030 sacubitriL-valsartan (ENTRESTO) 24 mg-26 mg per tablet 0.5 tablet 0.5 tablet Oral BID Sunita Avery MD 0.5 tablet at 08/26/252028 sennosides (SENOKOT) tablet 17.2 mg 17.2 mg Oral BID Nadir Lewis MD 17.2 mg at 08/26/25 1242 tiotropium bromide (SPIRIVA RESPIMAT) 2.5 mcg/actuation inhalation 2 puff 2 puff Inhalation Daily RT Albin Puentes DO 2 puff at 08/26/25 1103 [2] Allergies Allergen Reactions Tetracyclines Hives, Rash and Unknown In mouth Hives; In mouth Substance with tetracycline structure (substance) Gabapentin Headaches and Other (See Comments) Shakes, syncope Psychological Cosigned by Sammi Mckeon MD at 08/27/2025 4:27 PM EST Associated attestation - Sammi Mckeon MD - 08/27/2025 4:27 PM EST I reviewed this note and agree with the findings and plan of care. I have nothing to add or modify on the report of the history as noted, or the examination as recorded in the note above. We have discussed both the history and the examination. I have reviewed any available laboratory tests and perso taylor interpreted any available radiology tests. We have discussed the plan of care and I formulated the assessment and plan. I agree with all points of care for this patient. Signed: Sammi Mckeon MD 08/27/2025 * Avis Sage NP - 08/21/2025 2:03 PM EST INTERVENTIONAL RADIOLOGY PRE-PROCEDURE EVALUATION HISTORY: Mayra Craft is a 74 y.o. female with with history of MDD/CHRIS, opioid use disorder in sustained remission, SSS s/p dcICD, HFrEF (ef 40%) 2/2 niCM, moderate MR, NSVT with 10% PVC burden, non-obstructive CAD (CTA 2021). COPD with severe emphysema and O2 dependence 4L, NSCLC s/p left lung surgery 2017, chronic R rotator cuff arthropathy s/p R total shoulder arthroplasty 07/11/25 then conversion to R shoulder hemiarthroplasty with glenoid and humeral implant on 08/01/25. Recent hospitalization 08/01-08/10 with SOB felt combo of slight CHF exacerbation and COPDE/PNA mucoid impaction, dced to SNF presented with worsening b/l shoulder pain after fall at SNF 4 days ago found to have L humeral Fx and RUE DVT. She has been followed by orthopedics who have requested IR aspiration of right shoulder (08/22 9 am) to rule out septic arthritis. CODE STATUS: Full NPO: to be NPO after [place] PRIOR IR PROCEDURES: None Past Medical History[1] ALLERGIES: Tetracyclines and Gabapentin BP 115/77 (BP Location: Right arm, Patient Position: Lying) Pulse (!) 93 Temp 97.8 ??F (36.6 ??C) (Oral) Resp 16 Ht 1.727 m (5' 8 ) Wt 58.7 kg (129 lb 6.4 oz) SpO2 97% BMI 19.68 kg/m?? PHYSICAL EXAM: Pulmonary: diminished, on 4L NC Cardiovascular: WNL ASA Classification: III - Severe Systemic Disease; limits activity but not incapacitating Mallampati / Airway Assessment: Class 3 - Soft palate and base of uvula seen I have examined this patient and the patient is an acceptable candidate for this procedure and is acandidate for procedural sedation/analgesia. The risks, benefits, and options for the procedure and sedation have been explained have been explained and understood by the patient and the Informed Consent is obtained. No history of anesthetic complications. LABS: Results from last 7 days Lab Units 08/21/25 0700 WBC K/uL 9.58 HEMOGLOBIN g/dL 8.4* HEMATOCRIT % 27.1* PLATELETS K/uL 270 Results from last 7 days Lab Units 08/21/25 0700 POTASSIUM mmol/L 3.8 CREATININE mg/dL 0.40 Results from last 7 days Lab Units 08/20/25 0732 APTT s 26 INR 1.2* ASSESSMENT AND PLAN: In summary, Ms. Craft is a 74 y.o. female presenting for the image guided procedure above. Had planned for local only procedure but patient with severe pain despite pain medication titrationon the floor, as well as anxiety. She has complicated past medical history so I am reluctant to give moderate sedation if procedure can be accomplished without it. Will plan to have nursing for procedure and 1 drug sedation as needed. Heparin drip does not need to be held This check writer spoke with the patient regarding the procedure and its associated risks and benefits. The patient expressed an understanding of the procedure and its associated risks and benefits and provided signed informed consent. These findings and recommendations were made after discussion with the attending, Tommy Lujan MD, who agrees with the plan of care as above. Thank you very much for involving us in the care of this patient. Please feel free to contact us if you have any questions or concerns. [1] Past Medical History: Diagnosis Date COPD (chronic obstructive pulmonary disease) ([facility]) * Albin Puentes DO - 08/20/2025 7:13 AM EST HOSPITAL MEDICINE INITIAL NOTE Patient: Mayra Craft Admit Date: 08/19/2025 Primary Care Physician: Vanessa Culver MD History obtained from: Patient and Medical records, daughter Assessment and Plan Mayra Craft is a 74 y.o. 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 Recently, she has Chronic R rotator cuff arthropathy s/p R total shoulder arthroplasty 07/11/25 then conversion to R shoulder hemiarthroplasty with glenoid and humeral implant on 08/01/25. Was hospitalized 08/01-08/10 with SOB felt combo of slight CHF exacerbation and asCOPD as well, CTA no PE. Then there was concern for possible RLL aspiration on CTA with mucoid impaction. No fever, leukocytosis, tachy however to suggest active infection, continued bactrim 08/01-08/10 after surgery. No growth from OR culture to suggest infection. R arm was swollen after surgery, in which US then was negativefor DVT. Dced to [facility] ([facility]) Presents worsening b/l shoulder pain after fall at SNF 4 days ago #L proximal humerus comminuted transverse fracture - misjudging sitting down onto toilet seat, fell onto L shoulder - significant swelling, DVT US minimally done on L stopped given pain. Did find RUE DVT, started onAC. Monitor, if swelling worse on AC, repeat full US - ortho reviewed CT, acceptable aligmment amenable to non-operative treatment, mmobilization in a sling. She can come out of the sling for gentle pendulum range of motion. She may use the left upper extremity for light activity daily living but no heavy lifting more than 5 pounds. - ortho followup 1-2 weeks followup xrays L shoulder - IV morphine, oxy, tylenol. Avoiding scheduled tylenol to avoid masking fever. Senna/miralax scheduled. Continue home suboxone while on acute pain opiates to dec risk of relapse and complication of re-initiation #R shoulder swelling, possible concern for R shoulder septic arthritis #RUE DVT #Chronic R rotator cuff arthropathy s/p R total shoulder arthroplasty 07/11/25 then conversion to Rshoulder hemiarthroplasty with glenoid and humeral implant on 08/01/25 - significant continued swelling. Present after surgery last week, US then no DVT. CRP is significantly elevated at 293. - US RUE showed Nonocclusive deep vein thrombus of the right axillary vein. Scanned bilateral subclavian, right internal jugular, right brachial, and right axillary veins. The rest of upper extremities were not assessed as the patient was unable to tolerate the exam due to pain - hep gtt - Discussion with ortho, in agreement to r/o infection, rec IR tap. Discussed with IR, would like to wait 48 hours after abx given, will be wed 08/22. Doesn't need to be NPO, fluid cultures ordered - bcx collected 12/ pm, vanc/cefepime started then. Restart if become septic, otherwise hold off abx [] f/u IR tmw regarding timing of arthrocentesis on wed (if US/FL), to determine when to hold hep gtt #HCAP? - pt has no respiratory sx of cough/SOB, at baseline 4L NC, minimally elevated wbc of 12 with normal lactate. Pt did have hypotension on arrival though, improved with IVF to low 100s, - CTA today Heterogeneous consolidative opacities in both lower lobes may reflect pneumonia, whereas CTA 1 week ago there was bilateral lower lobe predominant diffuse bronchial wall thickening most pronounced in the right lower lobe with areas of mucoid impaction. Subpleural nodular consolidative opacities in the right lung base, likely infectious or inflammatory etiology possibly related to aspiration - initial vanc/cefepime, on hold as above, monitor on continuous pulse ox, watch for signs of sepsis reinitate abx if needed - ANALYTICAL DATA MINER consultation #Chronic HFrEF - s/p 1L NS 12/ evening on admission for hypotension, bp low 100s. Pt denies any SOB, no leg swelling - hold lasix 20mg MWF for today, restart wed, give IVF unless hypotensive - holding entresto given hypotension - daily weights, strict I&O #COPD #Chronic hypoxic respiratory failure 4L NC - not in exacerbation, continue nebs #SSS s/p dcICD #NSVT PVC burden of 10% on prior Zio. - change metop succ 12.5 bid -> metop tart 12.5 bid given hypotension on arrival, now currently low 100s #chronic iron deficiency anemia - baseline hb 9-10s - iron low on 08/03, ferritin normal. - start po iron #moderate malnutrition has lost >30lbs over last 6 months d/t poor appetite - multivitamins, ensure tid, nutrition consult Chronic problems #Hypothyroidism - levothyroxine 50 #Anxiety/depression - ativan 0.5 bid, paroxetine 20 #GERD - omeprazole #HLD - lipitor. #Nonobstructive CAD - asa 81, stop while on AC for now - FEN: PO - Functional Status: came from SNF - DVT prophylaxis: lovenox - Access: PIV - Code: full - Disposition: -- Anticipated discharge to: snf -- Anticipated discharge date: >3 days -- Anticipated discharge barriers: IR tap wed to r/o septic arthritis Extended Emergency Contact Information Primary Emergency Contact: Rory Craft Address: [address] [place] [id number] [place] [address] Mobile Relation: Son Secondary Emergency Contact: Ashanti Green Address: [address] [place] [address] Mobile Relation: Daughter HISTORY OF PRESENT ILLNESS: Mayra Craft is a 74 y.o. 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 Recently, she has Chronic R rotator cuff arthropathy s/p R total shoulder arthroplasty 07/11/25 then conversion to R shoulder hemiarthroplasty with glenoid and humeral implant on 08/01/25. Was hospitalized 08/01-08/10 with SOB felt combo of slight CHF exacerbation and asCOPD as well, CTA no PE. Then there was concern for possible RLL aspiration on CTA with mucoid impaction. No fever, leukocytosis, tachy however to suggest active infection, continued bactrim 08/01-08/10 after surgery. No growth from OR culture to suggest infection. R arm was swollen after surgery, in which US then was negativefor DVT. Dced to [facility] ([facility]) She is presenting from rehab with bilateral shoulder pain after a fall while at rehab from 4 days ago. She states she was going to sit on toilet, miss judged, and landed on her L shoulder against thewall. No LOC. Worsening b/l shoulder pain, BIBA from [facility] to [facility] time[facility] and subsequently sent to [facility] for further evaluation. She reports bilateralupper extremity pain, denies any numbness/tingling/paresthesias. She states her R shoulder has beensignificantly swollen since surgery. She is otherwise denies any respiratory sx such as cough, SOB.No chest palpitations or chest pain, no ab pain. Full ROS reviewed otherwise negative ED course Temp: [97.5 ??F (36.4 ??C)-98.2 ??F (36.8 ??C)] 98.2 ??F (36.8 ??C) Heart Rate: [76-118] 76 Resp: [16-24] 22 BP: (68-138)/(52-93) 99/79 SpO2: [91 %-100 %] 98 % *Refer to EMR for full review of labs Pertinent labs wbc 11, hb 9, trop 29->23, bnp 125, na 130, lactate 1.6->0.8, crp 293. InitialBP at rehab reportedly was 68/50, check here 79/57 and 68/52, BP improved to 90-100s after 1L bolus. ED Interventions: bcx, vanc/cefepime, 1L LR, morphine and dilaudid Imaging: XR Shoulder 2+ Vw Left Result Date: 08/20/2025 Comminuted and impacted left proximal humeral fracture involving the humeral head and surgical neck. No dislocation. Akanksha Ríos MD, electronically signed on Aug 20 2025 11:03AM US Upper Extremity Venous Bilateral Result Date: 08/20/2025 1. Nonocclusive deep vein thrombus of the right axillary vein. 2. This study only assessed bilateral subclavian, right internal jugular, right brachial, and right axillary veins. The rest of upper extremities were not assessed as the patient was unable to tolerate the exam due to pain. NOTIFICATION: The findings were discussed with, and acknowledged by Dr. Albin Puentes by Dr. Sherry Valladares, using [employer] Secure Chat on 08/20/2025 at 9:53 am, 3 minutes after discovery of the findings. BY ELECTRONICALLY SIGNING THIS REPORT, I THE ATTENDING PHYSICIAN ATTEST THAT I HAVE REVIEWED THE IMAGES FOR THE ABOVE PROCEDURE(S) AND AGREE WITH THE FINDINGS DOCUMENTED. Sherry Gomez MD, electronically signed on Aug 20 2025 10:38AM XR Chest 1 Vw Portable Result Date: 08/19/2025 Patchy bilateral lower lobe opacities suggesting pneumonia as seen on prior CT. Partially imaged comminuted left proximal humeral fracture and anteriorly dislocated humeral component of a right shoulder arthroplasty. Akanksha Ríos MD, electronically signed on Aug 19 2025 10:25PM XR Shoulder 2+ Vw Right Result Date: 08/19/2025 Status post right shoulder arthroplasty with chronic anterior dislocation of the humeral head relative to the glenoid. No acute fracture. Akanksha Ríos MD, electronically signed on Aug 19 2025 10:25PM XR Elbow 3+ VW Right Result Date: 08/19/2025 No acute fracture or dislocation involving either elbow. Akanksha Ríos MD, electronically signed on Aug 19 2025 10:24PM XR Elbow 3+ VW Left Result Date: 08/19/2025 No acute fracture or dislocation involving either elbow. Akanksha Ríos MD, electronically signed on Aug 19 2025 10:24PM CT Angiogram Chest PE : Arteriogram Addendum Date: 08/19/2025 ADDENDUM The patient is status post right shoulder arthroplasty (not reverse shoulder arthroplasty). The anterior dislocation of the humeral head component relative to the glenoid appears similar compared to the prior CTA chest from August 07, 2025. Akanksha Ríos MD, electronically signed on [id number] 08:47PM Result Date: 08/19/2025 1. No pulmonary embolism or acute aortic pathology. 2. Severe emphysema with mild dilatation of thepulmonary artery measuring up to 3.1 cm, unchanged, which can be seen with pulmonary arterial hypertension. 3. Mild dilatation of the ascending and descending thoracic aorta, unchanged. See recommendations below. 4. Heterogeneous consolidative opacities in both lower lobes may reflect pneumonia. 5.Acute, comminuted left proximal humeral fracture. 6. Status post reverse right shoulder arthroplasty with anterior subluxation/dislocation of the humeral component relative to the glenoid. 7. Chroniccompression deformities of T1 and T11 vertebral bodies. RECOMMENDATION(S): Follow-Up Imaging: Thoracic aorta 4.0 - 4.4 cm in diameter - if stable findings at 12 months or interval increase in diameter is < 3 mm, consider follow-up with ECG-gated chest CTA in 2 years. Management recommendations for follow-up of thoracic aortic aneurysm are based on existing literature and multidisciplinary consensus document of our institution, including Cardiology, Vascular Surgery, and Cardiac Surgery and it is specifically designed for this program. Isselbacher EM, et al. ACC/AHA Guideline for the Diagnosis and Management of Aortic Disease: A Report of the [place] [employer] Association/[employer] College ofCardiology Joint Committee on Clinical Practice Guidelines. Circulation 202; 146:x170-b287. Erbel R, et al. ESC Guidelines on the diagnosis of thoracic and abdominal aorta of the adult. Eur Heart J 2014;35:0609-1449. Cindy TURCIOS, et al. The Society of Vascular Surgery practice guidelines on the care of patients with an abdominal aortic aneurysm. J Vasc Surg 2018;67:2-77. Joseph V, et al. Management of Descending Thoracic Aortic Disease: Clinical Practice Guidelines of the Society of Vascular Surgery. Eur J Vasc Endovasc Surg 2017;53:4-52. Akanksha Ríos MD, electronically signed on Aug 19 2025 07:13PM US Lower Extremity Venous Left Result Date: 08/19/2025 Unable to evaluate the calf veins, but there is no evidence of deep venous thrombosis in the other left lower extremity veins. BY ELECTRONICALLY SIGNING THIS REPORT, I THE ATTENDING PHYSICIAN ATTEST THAT I HAVE REVIEWED THE IMAGES FOR THE ABOVE PROCEDURE(S) AND AGREE WITH THE FINDINGS DOCUMENTED. Geo Ríos MD, electronically signed on Aug 19 2025 07:17PM CT Cervical Spine Without Contrast Result Date: 08/19/2025 1. No acute cervical spine fracture or traumatic malalignment. 2. Left proximal humeral fracture imaged on the biochemistry teacher view. 3. Chronic compression deformity of the T1 vertebral body. Akanksha Ríos MD, electronically signed on Aug 19 2025 06:57PM CT Head Without Contrast Result Date: 08/19/2025 1. No acute intracranial abnormality. Akanksha Ríos MD, electronically signed on Aug 19 2025 06:49PM XR Shoulder 2+ VW Right Result Date: 08/14/2025 Redemonstrated reverse right shoulder arthroplasty with grossly intact hardware and maintained alignment. There is no acute fracture.. Slight interval decrease in streaky opacities in the right upperlung zone. Mild degenerative changes at the glenohumeral joint.. Kate Lugo MD, electronically signed on Aug 14 2025 02:56PM Microbiology: Results for orders placed or performed during the hospital encounter of 08/19/25 Culture, Blood Collection Time: 08/19/25 5:12 PM Specimen: Peripheral; Blood Result Value Ref Range Culture No growth less than 24 hours Coronavirus SARS-CoV-2 Date Value Ref Range Status 08/07/2025 Negative Negative Final PAST MEDICAL HISTORY Problem List[1] Past Medical History[2] PAST SURGICAL HISTORY Past Surgical History[3] FAMILY HISTORY Family History[4] Positive for mother with lung cancer and father with COPD. Negative for asthma, interstitial lung disease, or venous thromboembolism. SOCIAL HISTORY Social History[5] PRE-ADMISSION MEDICATION LIST: PAML Status: The preadmission medication list is accurate and complete. Prescriptions Prior to Admission[6] Current Outpatient Medications Medication Instructions acetaminophen (TYLENOL) 1,000 mg, Oral, 3 times daily albuterol HFA (VENTOLIN HFA) 90 mcg/actuation aerosol inhaler 2 puffs, Inhalation, Every 4 hours PRN ALPRAZolam (XANAX) 0.5 mg, Oral, Daily PRN ascorbic acid (VITAMIN C) 500 mg, Oral, Daily aspirin 81 mg, Oral, 2 times daily atorvaSTATin (LIPITOR) 20 mg, Oral, Nightly bisacodyl (DULCOLAX) 10 mg, Oral, Daily PRN mickukonzg-uhhloaeh-ftpbksdzmj 160-9-4.8 mcg/actuation HFAA INHALE 2 PUFFS BY MOUTH TWICE DAILY. RINSE AFTER USE buprenorphine-naloxone (SUBOXONE) 8-2 mg Film 1 Film, Sublingual, Daily calcium carbonate (TUMS) 500 mg, Oral, Daily cholecalciferol (VITAMIN D3) 1,000 Units, Oral, Daily cycloSPORINE (RESTASIS) 0.05 % ophthalmic emulsion 1 drop, Both Eyes, 2 times daily diazePAM (VALIUM) 5 MG tablet TAKE 1 TABLET BY MOUTH 1 HOUR BEFORE PROCEDURE furosemide (LASIX) 20 mg, Oral, 3 times weekly [Paused] ibuprofen (MOTRIN) 800 mg, Every 8 hours PRN ipratropium (ATROVENT) 0.5 mg, Nebulization, Every 8 hours PRN levothyroxine (SYNTHROID, LEVOXYL) 50 mcg, Oral, Daily (thyroid, PPIs, heparin flush) evgbgk-jgkvoviv-nyqmvmx, pork, (CREON) 24,000-76,000 -120,[address] capsule 48,000 units of lipase, Oral, 3 times daily with meals LORazepam (ATIVAN) 0.5 mg, Oral, 2 times daily metoprolol ER (TOPROL-XL) 12.5 mg, Oral, 2 times daily mometasone-formoterol (Dulera) 100-5 mcg/actuation inhaler 2 puffs, Inhalation, 2 times daily omeprazole (PRILOSEC) 20 mg, Oral, Daily (thyroid, PPIs, heparin flush) oxyCODONE (ROXICODONE) 5 mg, Oral, Every 4 hours PRN PARoxetine (PAXIL) 20 mg, Oral, Every morning polyethylene glycol (MIRALAX) 17 g, Oral, Daily PRN potassium chloride ER (MICRO-K) 10 MEQ ER capsule 10 mEq, Daily sacubitriL-valsartan (ENTRESTO) 24 mg-26 mg Tab per tablet 0.5 tablets, Oral, 2 times daily tiotropium bromide (SPIRIVA RESPIMAT) 2.5 mcg/actuation Mist inhalation 2 puffs, Inhalation, Daily (RT) ZENPEP 25,000-79,000- 105,000 unit CpDR 2 capsules, See admin instructions ALLERGIES: Tetracyclines and Gabapentin DATA: I have reviewed the relevant labs, radiology studies, tracings, medical records. Physical Exam General: No distress. Awake and Alert. HEENT: head normocephalic atraumatic, eyes track me across room, nose intact, oral mucosa dry Cardiovascular: Regular Rate and Rhythm. Pacemaker Lungs: Respirations unlabored. Some crackles, no wheezing. Abdomen: Soft, nondistended, nontender, positive bowel sounds. Extremities: No lower extremity edema. Warm and well perfused. R shoulder and upper arm swollen, tender to palpation. L shoulder and L upper arm bruised and tender to palpation. Very difficult to lift up arms 2/2 pain Neuro: alert and oriented, gross motor and sensation normal Psych: cooperative, no distress E/M Services: I provided 74min of critical care services in this encounter for acute DVT requiring IV hep gtt. This event represented an imminent, life-threatening deterioration in the patient's condition that required continuous assessment and intervention. I performed critical care services both at the bedsideand while being immediately available on the medical unit. These services included direct patient care, vital sign monitoring, review of the medical history, laboratory, radiologic, and electrocardiographic data, as appropriate, discussion of the care plan with other healthcare providers, and documenting in the medical record While the patient remains admitted to the hospital, they remain at risk for unforeseen complications or deterioration that cannot be entirely predicted or prevented. This plan is based on the currentclinical understanding and information available at the time of documentation. Patient outcomes mayvary, and clinical conditions may evolve unexpectedly. Albin Puentes, Section of Hospital Medicine [facility] [1] Patient Active Problem List Diagnosis Traumatic arthropathy, right shoulder Adenocarcinoma of left lung ([facility]) Adenomatous polyp of ascending colon Atherosclerosis of coronary artery of [place] heart without angina pectoris Cardiomyopathy ([facility]) Centrilobular emphysema ([facility]) Chronic obstructive pulmonary disease ([facility]) Generalized anxiety disorder Former smoker Hx of cancer of lung Hypertension Hypothyroidism 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 elsewhere Major depressive disorder, recurrent episode, moderate ([facility]) Malignant neoplasm of left lung ([facility]) Moderate mitral regurgitation Pacemaker NSVT (nonsustained ventricular tachycardia) ([facility]) Prediabetes Rectus sheath hematoma Sick sinus syndrome ([facility]) Temporomandibular joint disorder Ascending aorta dilatation TIA (transient ischemic attack) Tobacco dependence Uncomplicated opioid dependence ([facility]) Chronic, continuous use of opioids GERD (gastroesophageal reflux disease) History of general anesthesia Chronic pancreatitis ([facility]) Substance use Heart failure ([facility]) Supplemental oxygen dependent Alcohol use S/P reverse total shoulder arthroplasty, right Mechanical failure of prosthetic joint, subsequent encounter Closed comminuted fracture of left humerus, initial encounter [2] Past Medical History: Diagnosis Date COPD (chronic obstructive pulmonary disease) ([facility]) [3] Past Surgical History: Procedure Laterality Date lung resection , left 2017 ARTHROPLASTY REVERSE SHOULDER Right 07/11/2025 Surgeon: Harpreet Goins MD; Location: [facility]; Service: Orthopaedics; Laterality: Right; ARTHROPLASTY REVERSE SHOULDER Right 08/01/2025 Surgeon: Harpreet Goins MD; Location: [facility]; Service: Orthopaedics; Laterality: Right; CARDIAC SURGERY INSERT PACEMAKER PERMANENT JOINT REPLACEMENT KNEE ARTHROSCOPY Left around 15 years ago rectus sheath hematoma [4] No family history on file. [5] Social History Socioeconomic History Marital status: Single Tobacco Use Smoking status: Former Current packs/day: 0.00 Average packs/day: 1.5 packs/day for 54.0 years (81.0 ttl pk-yrs) Types: Cigarettes Start date: 1962 Quit date: 2016 Years since quittin.9 Smokeless tobacco: Never Substance and Sexual Activity Alcohol use: Never Drug use: Never [6] (Not in a hospital admission) documented in this encounter Consult Notes * Afshan Sosa - 09/02/2025 3:53 PM EST Spiritual Care Note Reason for Visit/Referral: Rounding Orthodoxy/Rossy/Spirituality: None Narrative and Assessment: I attempted visit, but Mayra was sleeping. Intervention(s): Left spiritual care information card Plan of Care: Follow-up available as needed or requested Afshan Sosa Pager [phone] For further spiritual care needs, [id number] [phone]. * Jersey Oviedo MD - 08/30/2025 1:47 PM ESTAssociated Order(s): IP CONSULT TO NEUROLOGY Images from the original note were not included. NEUROLOGY CONSULT NOTE Date of service: 08/30/25 Consult attending: Dr. Vallejo Consult Question: Right wrist drop Subjective Mayra Craft is 74-year-old woman with COPD on oxygen, HFrEF (EF ~40%), non- obstructive CAD, and recent complicated right shoulder surgery history (right shoulder arthroplasty 07/11/25, followed by subsequent fall onto the right shoulder, leading to conversion/revision to right shoulder hemiarthroplasty with glenoid/humeral implants 08/01/25; hospitalized 08/01-08/10 then discharged to SNF), nowadmitted after a mechanical fall at SNF with left proximal humerus fracture and RUE DVT. Neurology is consulted for new inability to extend the right wrist and fingers. History was acquired from patient and per chart review. Patient states that she did not notice right wrist or hand weakness after the first (07/11) shoulder surgery. After a fall onto the right shoulder and the second operation (08/01), she reports new RUE weakness, most notably inability to lift the right arm well, and difficulty with right wrist and finger extension. During the current admission, over the last several days, she has noticed progressive worsening of voluntary wrist and finger extension, especially on the right, severely interfering with cork insulation setter and ADLs. She endorses significantright shoulder/elbow pain, partly due to elbow wound from the fall. She reports some chronic neck pain and radicular pain into the arm, chronic shoulder pain. She doesnot clearly endorse numbness or tingling but is focused on pain and swelling. Notably, the RUE remains swollen in the setting of known DVT and ongoing postoperative shoulder process and elbow abrasion; there was also a concern for septic arthritis, though IR aspiration on 08/22 showed no growth to date in culture. Past Medical History: Past Surgical History Past Medical History[1] Past Surgical History[2] Home Medications: Social History: Current Outpatient Medications Medication Instructions acetaminophen (TYLENOL) 1,000 mg, Oral, 3 times daily albuterol HFA (VENTOLIN HFA) 90 mcg/actuation aerosol inhaler 2 puffs, Inhalation, Every 4 hours PRN ALPRAZolam (XANAX) 0.5 mg, Oral, Daily PRN ascorbic acid (VITAMIN C) 500 mg, Oral, Daily aspirin 81 mg, Oral, 2 times daily atorvaSTATin (LIPITOR) 20 mg, Oral, Nightly bisacodyl (DULCOLAX) 10 mg, Oral, Daily PRN wbjeexpjtu-bhuteass-kbajevaxir 160-9-4.8 mcg/actuation HFAA INHALE 2 PUFFS BY MOUTH TWICE DAILY. RINSE AFTER USE buprenorphine-naloxone (SUBOXONE) 8-2 mg Film 1 Film, Sublingual, Daily calcium carbonate (TUMS) 500 mg, Oral, Daily cholecalciferol (VITAMIN D3) 1,000 Units, Oral, Daily cycloSPORINE (RESTASIS) 0.05 % ophthalmic emulsion 1 drop, Both Eyes, 2 times daily diazePAM (VALIUM) 5 MG tablet TAKE 1 TABLET BY MOUTH 1 HOUR BEFORE PROCEDURE furosemide (LASIX) 20 mg, Oral, 3 times weekly ibuprofen (MOTRIN) 800 mg, Every 8 hours PRN ipratropium (ATROVENT) 0.5 mg, Nebulization, Every 8 hours PRN levothyroxine (SYNTHROID, LEVOXYL) 50 mcg, Oral, Daily (thyroid, PPIs, heparin flush) txehmu-fmeqlknd-partrsf, pork, (CREON) 24,000-76,000 -120,[address] capsule 48,000 units of lipase, Oral, 3 times daily with meals LORazepam (ATIVAN) 0.5 mg, Oral, 2 times daily metoprolol ER (TOPROL-XL) 12.5 mg, Oral, 2 times daily mometasone-formoterol (Dulera) 100-5 mcg/actuation inhaler 2 puffs, Inhalation, 2 times daily omeprazole (PRILOSEC) 20 mg, Oral, Daily (thyroid, PPIs, heparin flush) oxyCODONE (ROXICODONE) 5 mg, Oral, Every 4 hours PRN PARoxetine (PAXIL) 20 mg, Oral, Every morning polyethylene glycol (MIRALAX) 17 g, Oral, Daily PRN potassium chloride ER (MICRO-K) 10 MEQ ER capsule 10 mEq, Daily sacubitriL-valsartan (ENTRESTO) 24 mg-26 mg Tab per tablet 0.5 tablets, Oral, 2 times daily tiotropium bromide (SPIRIVA RESPIMAT) 2.5 mcg/actuation Mist inhalation 2 puffs, Inhalation, Daily (RT) ZENPEP 25,000-79,000- 105,000 unit CpDR 2 capsules, See admin instructions Social History[3] Socioeconomic History Marital status: Single Substance and Sexual Activity Alcohol Use Never Tobacco Use History[4] Allergies: Family History Allergies[5] Family History[6] Current medications Scheduled Medications[7] Infusions Meds[8] PRN Medications[9] Objective Vitals (24h data): BP Min: 87/56 Max: 145/84 Temp Min: 97.4 ??F (36.3 ??C) Max: 98.5 ??F (36.9 ??C) Pulse Min: 65 Max: 75 Resp Min: 16 Max: 20 SpO2 Min: 88 % Max: 100 % GENERAL: In no acute distress HEENT: NC/AT, mucous membranes moist PULM: Breathing comfortably on NC oxygen EXT: bilateral elbow lesions with clean wound dressing NEURO: - Mental status: Awake and alert, oriented.Language is fluent with intact comprehension. - Cranial nerves: EOMI. No facial droop, facial musculature symmetric. Hearing intact to conversation bilaterally. - Motor: BUE* exam severely limited by pain Delt Bic Tric WrEx (ECR) FFl FEx IO APB C5 C5/6 C7 C6/7 C8 C7 T1 C8-T1 L 3+ 4 4 4 3 x x x R 3+ 4 4 2 2 3+ 3 3+ BLE: IP and quads at least AG with good efforts - Sensation: No deficits to light touch, and reduced sensory to pinprick, in dorsum hand and forearm (60% of norm) - Reflexes: Babinski on the left great toe, mute on the right Ankle clonus bilaterally, nonsustained (4 beats) Bic Tri Brach Pat Ach C5/6 C7 C6 L4 S1 L x x x 4 3 R x x x 4 3 X unable to assess reflex in upper extremities given severe tissue swelling. - Coordination: unable to test - Gait: Deferred Laboratory data, EKG and Imaging: I have reviewed recent imaging studies and labs. Notable for: Data Labs: - CBC: Lab Results Component Value Date WBC 5.80 08/30/2025 HGB 7.6 (L) 08/30/2025 HCT 24.4 (L) 08/30/2025 PLT 261 08/30/2025 - Coags: Lab Results Component Value Date APTT 75 (H) 08/22/2025 - BMP: Lab Results Component Value Date NA 131 (L) 08/30/2025 K 4.0 08/30/2025 CL 95 (L) 08/30/2025 BUN 20 08/30/2025 CREATININE 0.40 08/30/2025 GLUCOSE 132 (H) 08/30/2025 - LFT's: Lab Results Component Value Date AST 26 08/20/2025 ALT 17 08/20/2025 ALKPHOS 156 (H) 08/20/2025 BILIDIR <0.2 07/22/2019 - Microbiology: Results for orders placed or performed during the hospital encounter of 08/19/25 Culture, Blood Collection Time: 08/19/25 5:12 PM Specimen: Peripheral; Blood Result Value Ref Range Culture No growth after 5 days Culture, Prosthetic Joint Fluid Collection Time: 08/22/25 9:53 AM Specimen: Prosthetic joint fluid; Body Fluid Result Value Ref Range Prosthetic Joint Fluid Culture No growth Smear,Gram Stain 1+ Polymorphonuclear Leukocytes Smear,Gram Stain No Microorganisms Seen Nasal MRSA by PCR Collection Time: 08/23/25 1:29 PM Specimen: Nares; Respiratory Result Value Ref Range MRSA PCR Positive (A) Negative Imaging: XR Shoulder 2+ VW Left Result Date: 08/29/2025 EXAMINATION: XR SHOULDER 2+ VW LEFT INDICATION: pt with known L proximal humerus comminuted fracture with significant edema + continued pain, XR for worsening of fracture; TECHNIQUE: Frontal and Grashey view radiographs of the left shoulder. COMPARISON: Radiographs of the left shoulder from 19 August 2025. FINDINGS: Partially-imaged left-sided dual lead cardiac device noted. Again seen is the comminuted and impacted fracture of the left proximal humerus involving the humeral head and surgical neck. Fracture lines remain visible, though with interval callus formation. No evidence of acromioclavicular or glenohumeral joint dislocation. No new fracture detected. Probable diffuse osteopenia. Left lower lung opacity seen on frontal and oblique views. This appears more pronounced than on the [id number] left shoulder radiographs. Recommend further evaluation with dedicated chest x-ray. Surgical sutures noted in the left lung. RECOMMENDATION(S): Chest x-ray. NOTIFICATION: The findingsand recommendations above were discussed with, and acknowledged by Dr. Mayra Craft by Dr. Sunni Pham, using [employer] Secure Chat on 08/28/2025 at 3:24 pm, 2 minutes after discovery of the findings. BY ELECTRONICALLY SIGNING THIS REPORT, I THE ATTENDING PHYSICIAN ATTEST THAT I HAVE REVIEWED THE IMAGES FOR THE ABOVE PROCEDURE(S) AND AGREE WITH THE FINDINGS DOCUMENTED. Sunni Mercado MD, electronically signed on Aug 29 2025 03:22PM XR Humerus 2+ VW Right Result Date: 08/28/2025 EXAMINATION: XR HUMERUS 2+ VW RIGHT INDICATION: c/f R humerus pathology given r wrist drop; TECHNIQUE: Frontal view radiographs of the right humerus. COMPARISON: Radiographs of the right shoulder from 19 August 2025. FINDINGS: Again seen right shoulder arthroplasty hardware without evidence of hardware loosening. There is persistent anterior, medial, and inferior displacement of the right humeral head component relative to the glenoid. No fracture. If there remains clinical concern for nerve compression, please consider MRI for further evaluation. XR Chest 1 VW Portable Result Date: 08/28/2025 EXAMINATION: XR CHEST 1 VW PORTABLE INDICATION: incidentally noted LLL consolidation; TECHNIQUE: Chest portable AP COMPARISON: Multiple prior studies, most recent chest radiograph dated 08/23/2025. Retrocardiac and right basilar opacifications appear grossly similar and are better assessed by therecent chest CT. Diffuse reticular opacities are also better assessed by the previous chest CT, probably representing extensive emphysema. Superimposed inflammation is possible. Otherwise no significant interval change in the appearance of the chest. Kristopher Hickey MD, electronically signed on Aug 28 2025 04:02PM ECG 12 lead Result Date: 08/28/2025 Sinus rhythm with premature atrial depolarizations When compared with ECG of 23-Aug-2025 00:35, No significant change was found Temporary Access Catheter Placement Result Date: 08/27/2025 INDICATION: Inability to obtain or maintain peripheral venous access COMPARISON: None. TECHNIQUE: OPERATORS: Dr. Mckeon, attending interventional radiologist performed the procedure. ANESTHESIA: Local only Fluoro time 15 seconds Radiation Dose: <1 mGY PROCEDURE: PROCEDURE DETAILS: Following the explanation of the risks, benefits and alternatives to the procedure, written informed consent was obtained from the patient. The patient was then brought to the angiography suite and placed supine on the exam table. A pre-procedure time-out was performed per [facility] protocol. The right neck was preppedand draped in the usual sterile fashion. Under continuous ultrasound guidance, the patent right internal jugular vein was compressible and accessed using a micropuncture needle. Permanent ultrasound images were obtained before and after intravenous access, which confirmed vein patency. Subsequentlya Nitinol wire was passed into the IVC using fluoroscopic guidance. The needle was exchanged for a micropuncture sheath. The Nitinol wire was removed and an 0.035 wire was advanced into the IVC. A triple lumen central catheter was advanced over the wire into the superior vena cava with the tip in the cavoatrial junction. All 3 access ports were aspirated, flushed and capped. The catheter was secured to the skin with a 0 silk suture and sterile dressings were applied. Final spot fluoroscopic image demonstrating good alignment of the catheter and no kinking. The patient tolerated the procedure well without immediate complications. FINDINGS: Patent right internal jugular vein. Final fluoroscopic image showing the catheter tip terminating in the distal superior vena cava. Successful placement of a 7 Fr 16 cm triple-lumen temporary central venous catheter via the right internal jugular venous approach. The tip of the catheter terminates in the distal superior vena cava. The catheter is ready for use. Sammi Mckeon MD, electronically signed on Aug 27 2025 01:44PM XR Abdomen Portable Result Date: 08/25/2025 INDICATION: LUQ abdominal pain; TECHNIQUE: Portable supine abdominal radiograph was obtained. COMPARISON: None Nonspecific bowel gas pattern with gas noted throughout nondilated small bowel loops in the midlineand: To the level of rectum. There is a single dilated loop of bowel probably small bowel loop in the left upper quadrant suggestive of focal ileus or could be splenic flexure. Moderate stool burden in the right side of the colon. Suboptimal study for evaluation of free air however no gross pneumoperitoneum. There are degenerative changes in the spine Kate Lugo MD, electronically signed on Aug 25 2025 03:52PM XR Hand 3+ VW Right Result Date: 08/24/2025 EXAMINATION: XR WRIST 3+ VW RIGHT; XR HAND 3+ VW RIGHT INDICATION: pt with fall and continued r wrist and hand pain.; TECHNIQUE: Frontal, oblique, and lateral view radiographs of right hand and wristCOMPARISON: None available. No acute fractures or dislocations are seen. Mild degenerative changes of the first carpometacarpaljoint in setting of osteophytosis. Mild negative ulnar variance. No bone erosion or periostitis. Nosuspicious lytic or sclerotic lesion. No soft tissue calcifications or radiopaque foreign body. No significant carpal bone malalignment. BY ELECTRONICALLY SIGNING THIS REPORT, I THE ATTENDING PHYSICIAN ATTEST THAT I HAVE REVIEWED THE IMAGES FOR THE ABOVE PROCEDURE(S) AND AGREE WITH THE FINDINGS DOCUMENTED. Geeta Hummel MD, electronically signed on Aug 24 2025 05:46PM XR Wrist 3+ VW Right Result Date: 08/24/2025 EXAMINATION: XR WRIST 3+ VW RIGHT; XR HAND 3+ VW RIGHT INDICATION: pt with fall and continued r wrist and hand pain.; TECHNIQUE: Frontal, oblique, and lateral view radiographs of right hand and wristCOMPARISON: None available. No acute fractures or dislocations are seen. Mild degenerative changes of the first carpometacarpaljoint in setting of osteophytosis. Mild negative ulnar variance. No bone erosion or periostitis. Nosuspicious lytic or sclerotic lesion. No soft tissue calcifications or radiopaque foreign body. No significant carpal bone malalignment. BY ELECTRONICALLY SIGNING THIS REPORT, I THE ATTENDING PHYSICIAN ATTEST THAT I HAVE REVIEWED THE IMAGES FOR THE ABOVE PROCEDURE(S) AND AGREE WITH THE FINDINGS DOCUMENTED. Geeta Hummel MD, electronically signed on Aug 24 2025 05:46PM ECG 12 lead Result Date: 08/24/2025 Sinus rhythm with premature atrial depolarizations Inferior infarct , age undetermined Abnormal ECGWhen compared with ECG of 21-Aug-2025 22:25, Inferior infarct is now present Chest 1 VW Portable Result Date: 08/23/2025 EXAMINATION: XR CHEST 1 VW PORTABLE INDICATION: Hypoxia, eval pneumonia, fluid overload, pneumothorax; TECHNIQUE: AP chest COMPARISON: Chest radiograph dated 08/19/2025 In comparison to study of August 19, there are similar bibasilar and retrocardiac opacifications, likely representing pneumonia. Similar diffuse increased interstitial opacities may represent underlying mild pulmonary edema and severe emphysema. No pleural effusion or pneumothorax. Cardiac silhouette size is normal. Similar position of the left chest wall pacer device leads. Left proximal humerus fracture is again noted. Guy Callahan MD, electronically signed on Aug 23 2025 07:31AM ECG 12 lead, to be obtained, dyspnea Result Date: 08/22/2025 Sinus rhythm with premature atrial depolarizations Right axis deviation When compared with ECG of 19-Aug-2025 17:25, Questionable change in QRS axis ST no longer elevated in Anterior leads MSK Injection / Aspiration - US Result Date: 08/22/2025 EXAMINATION: IR MSK INJECTION / ASPIRATION - US INDICATION: continued swelling of R shoulder, elevated CRP; TECHNIQUE: The risks, benefits, and alternatives were explained to the patient and written informed consent obtained. A pre- procedure timeout confirmed three patient identifiers. Under ultrasound guidance, an appropriate spot was marked. The area was prepared and draped in standard sterile fashion. 4 cc of 1% Lidocaine was used to achieve local anesthesia. Under intermittent ultrasound guidance, a 22-gauge spinal needle was advanced into the posterior aspect of the shoulder joint. Aspiration trail resulted in dry tap. Lavage of the joint was performed with 2-3 CC of joint reddish fluid was obtained. The needle was removed, hemostasis achieved, and a sterile bandage applied. The patient tolerated the procedure well and left the department in good condition. There were no immediate complications. COMPARISON: None FINDINGS: Again seen is cortical irregularity in keeping with known p roximal left humeral fracture. 1. Imaging Findings - as above. 2. Procedure - Uneventful ultrasound-guided lavage with fluid aspiration, which was sent for microbiology. I Dr. Duran personally supervised the Resident/Fellowduring the landrum components of the above procedure and I have reviewed and agree with the Resident/Fellow findings/dictation. BY ELECTRONICALLY SIGNING THIS REPORT, I THE ATTENDING PHYSICIAN ATTEST THAT I HAVE REVIEWED THE IMAGES FOR THE ABOVE PROCEDURE(S) AND AGREE WITH THE FINDINGS DOCUMENTED. Adarsh Duran MD, electronically signed on Aug 22 2025 03:47PM CT Shoulder Left Without Contrast Result Date: 08/21/2025 EXAMINATION: CT SHOULDER LEFT WO CONTRAST INDICATION: shoulder pain; TECHNIQUE: MDCT images of the left shoulder were obtained without contrast. Coronal and sagittal reformats were obtained. DOSE: Acquisition sequence: 1) Spiral Acquisition 5.0 s, 23.0 cm; CTDIvol = 13.3 mGy (Body) DLP = 306.2 mGy-cm Total DLP (Body) = 306 mGy-cm COMPARISON: Radiograph of left shoulder dated August [address] pulmonary angiography dated August 19. FINDINGS: BONES: Mild diffuse osseous demineralization. There is a complete transverse comminuted displaced fracture involving the neck of the humerus. The fracture line is seen extending into inferior articular surface of the humeral head as well as the greater t uberosity. There is almost half shaft width anterior displacement of the distal fracture fragment with mild superior migration (approximately 1.9 cm) and impaction. The glenohumeral alignment is well-maintained. No suspicious focal osseous lesion is seen. Note is made of compression fracture of indeterminate age T1 vertebral body and possible superior endplate compression of T2. Visualized ribs do not show any overt fracture, however the evaluation is limited by subtle motion artifacts. SOFT TISSUES: Mild soft tissue edema surrounding the shoulder joint. No localized fluid collection or any hematoma formation. No effusion or evidence of tendon entrapment. No disproportionate muscle atrophy.OTHER: Note is made of severe centrilobular emphysema in visualized lungs. Consolidative opacity inthe left lower lobe is partially visualized. Few nodular opacity in left upper lung. 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 These findings are better evaluated in recent CT pulmonary angiography 1. Complete transverse comminuted displaced, impacted fracture involving neck of the humerus extending into inferior articular surface humeral head and greater tuberosity 2. Compression fracture of indeterminate age T1 vertebral body and possible superior endplate compression of T2. 3. Consolidative opacity in the left lower lobe is partially visualized. Few nodular opacity in left upper lung. These findings are better evaluated in recent CT pulmonary angiography. If clinically indicated consider CT chest follow-up in 3 months. BY ELECTRONICALLY SIGNING THIS REPORT, I THE ATTENDING PHYSICIAN ATTEST THAT I HAVE REVIEWED THE IMAGES FOR THE ABOVE PROCEDURE(S) AND AGREE WITH THE FINDINGS DOCUMENTED. Guy Hummel MD, electronically signed on Aug 21 2025 10:44AM ECG 12 lead Result Date: 08/21/2025 Sinus rhythm with premature atrial depolarizations Minimal voltage criteria for LVH, may be normal variant ( Morris product ) Nonspecific T wave abnormality Inferior GA - indeterminate age Abnormal ECG When compared with ECG of 07-Aug-2025 13:31, premature ventricular depolarizations are no longerpresent premature atrial depolarizations are now present ST elevation now present in Anterior leads Shoulder 2+ Vw Left Result Date: 08/20/2025 INDICATION: s/p fall, surgery, pain, swelling ?fx; TECHNIQUE: Three views of the left shoulder COMPARISON: None. FINDINGS: A comminuted and impacted fracture of the left proximal humerus involves thehumeral head and surgical neck. No dislocation. Glenohumeral joint is preserved. Mild joint space narrowing of the acromioclavicular joint. Imaged left lung demonstrates chain sutures from prior leftupper segmentectomy. Generator pack for a pacer is seen in the left upper chest wall. Comminuted and impacted left proximal humeral fracture involving the humeral head and surgical neck. No dislocation. Akanksha Ríos MD, electronically signed on Aug 20 2025 11:03AM US Upper Extremity Venous Bilateral Result Date: 08/20/2025 EXAMINATION: US UPPER EXTREMITY VENOUS BILATERAL INDICATION: Edema, pain/tenderness TECHNIQUE: Greyscale and Doppler evaluation was performed on the bilateral upper extremity veins. COMPARISON: None. FINDINGS: There is normal flow with respiratory variation in the bilateral subclavian veins. The right internal jugular vein is patent, shows normal color flow, spectral doppler, and compressibility. The right brachial veins are patent and show compressibility. The right axillary vein is not compressible and does not show normal [id number] color flow, consistent with nonocclusive thrombus in the right axillary vein. The rest of the exam was not performed as the patient was unable to toleratethe exam due to pain. 1. Nonocclusive deep vein thrombus of the right axillary vein. 2. This study only assessed bilateral subclavian, right internal jugular, right brachial, and right axillary veins. The rest of upper extremities were not assessed as the patient was unable to tolerate the exam due to pain. NOTIFICATION: The findings were discussed with, and acknowledged by Dr. Albin Puentes by Dr. Sherry Valladares, using [employer] Secure Chat on 08/20/2025 at 9:53 am, 3 minutes after discovery of the findings. BY ELECTRONICALLY SIGNING THIS REPORT, I THE ATTENDING PHYSICIAN ATTEST THAT I HAVE REVIEWED THE IMAGES FOR THE ABOVE PROCEDURE(S) AND AGREE WITH THE FINDINGS DOCUMENTED. Sherry Gomez MD, electronically signed on Aug 20 2025 10:38AM XR Chest 1 Vw Portable Result Date: 08/19/2025 EXAMINATION: XR CHEST 1 VW PORTABLE INDICATION: sob, cough /pna; TECHNIQUE: Semi-upright AP view ofthe chest COMPARISON: CTA chest 19 August 2025 at 18:44 and 07 August 2025, chest radiograph 07 August 2025 FINDINGS: Left-sided pacer with leads in the right atrium and right ventricle, unchanged.Mild cardiomegaly is similar. Mediastinal and hilar contours are unchanged. No pulmonary edema. Diffuse increased interstitial opacities are again noted and related to underlying severe emphysema. Patchy airspace opacities are again noted in the lower lobes which is concerning for pneumonia. No pleural effusion or pneumothorax. No acute osseous abnormalities. Partially imaged comminuted left proximal humeral fracture. Status post right shoulder arthroplasty with the humeral head component demonstrating anterior dislocation. Contrast from recent CT examination is seen in the renal collectingsystems bilaterally. Patchy bilateral lower lobe opacities suggesting pneumonia as seen on prior CT. Partially imaged comminuted left proximal humeral fracture and anteriorly dislocated humeral component of a right shoulder arthroplasty. Akanksha Ríos MD, electronically signed on Aug 19 2025 10:25PM XR Shoulder 2+ Vw Right Result Date: 08/19/2025 INDICATION: s/p fall, surgery, pain, swelling ?fx; TECHNIQUE: Right shoulder, three views COMPARISON: CT chest 07 August 2025 and right shoulder radiographs 14 August 2025 FINDINGS: Status post right shoulder arthroplasty with persistent anterior, medial and inferior displacement of the humeral head component relative to the glenoid. No acute fracture. Acromioclavicular joint demonstrates milddegenerative changes. Fragmentation of the acromion appears chronic. No periarticular soft tissue calcifications. Severe emphysema is noted in the imaged right lung. 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 No acute fracture. Akanksha Ríos MD, electronically signed on Aug 19 2025 10:25PM XR Elbow 3+ VW Right Result Date: 08/19/2025 INDICATION: elbow pain; TECHNIQUE: AP and lateral views of the elbows bilaterally COMPARISON: None.FINDINGS: On the left, no acute fracture or dislocation. No elbow joint effusion. Mild degenerativechanges of the humeroulnar joint. No concerning lytic or sclerotic osseous abnormality. No embeddedradiopaque foreign body or soft tissue calcification. On the right, no acute fracture or dislocation. No elbow joint effusion. Mild degenerative changes of the ulnohumeral joint. No suspicious lytic or sclerotic osseous abnormality. Mild soft tissue irregularity is seen along the dorsal aspect of th e elbow. No acute fracture or dislocation involving either elbow. Akanksha Ríos MD, electronically signed on Aug 19 2025 10:24PM XR Elbow 3+ VW Left Result Date: 08/19/2025 INDICATION: elbow pain; TECHNIQUE: AP and lateral views of the elbows bilaterally COMPARISON: None.FINDINGS: On the left, no acute fracture or dislocation. No elbow joint effusion. Mild degenerativechanges of the humeroulnar joint. No concerning lytic or sclerotic osseous abnormality. No embeddedradiopaque foreign body or soft tissue calcification. On the right, no acute fracture or dislocation. No elbow joint effusion. Mild degenerative changes of the ulnohumeral joint. No suspicious lytic or sclerotic osseous abnormality. Mild soft tissue irregularity is seen along the dorsal aspect of th e elbow. No acute fracture or dislocation involving either elbow. Akanksha Ríos MD, electronically signed on Aug 19 2025 10:24PM CT Angiogram Chest PE : Arteriogram Addendum Date: 08/19/2025 ADDENDUM The patient is status post right shoulder arthroplasty (not reverse shoulder arthroplasty). The anterior dislocation of the humeral head component relative to the glenoid appears similar compared to the prior CTA chest from August 07, 2025. Akanksha Ríos MD, electronically signed on [id number] 08:47PM Result Date: 08/19/2025 EXAMINATION: CTA CHEST WITH CONTRAST INDICATION: pt w/ sob, chest pain, tachycardia; TECHNIQUE: Axial multidetector CT images were obtained through the thorax after the uneventful administration of intravenous contrast including reformatted coronal, sagittal, and oblique and axial maximal intensityprojection (MIP) images. DOSE: Acquisition sequence: 1) Stationary Acquisition 0.5 s, 0.5 cm; CTDIvol = 3.0 mGy (Body) DLP = 1.5 mGy-cm 2) Stationary Acquisition 2.0 s, 0.5 cm; CTDIvol = 12.1 mGy (Body) DLP = 6.1 mGy-cm 3) Spiral Acquisition 4.1 s, 30.6 cm; CTDIvol = 8.2 mGy (Body) DLP = 252.0 mGy-cm Total DLP (Body) = 260 mGy- cm COMPARISON: CTA chest 07 August 2025 FINDINGS: VASCULATURE: Main pulmonary artery is borderline enlarged at 3.1 cm. No filling defects to the subsegmental level to indicate a pulmonary embolism. Ascending aorta demonstrates fusiform dilatation to 4.2 cm and the descending thoracic aorta is dilated up to 3.4 cm, as seen previously. No aortic dissection or intramural hematoma. HEART: Mild cardiomegaly. Pacing leads terminate within the right atrium and right ventr icle. Moderate coronary artery calcifications. No significant pericardial effusion. AXILLA, MARCELL, AND MEDIASTINUM: No lymphadenopathy or mass. The esophagus is patulous which can be seen with esophageal dysmotility. PLEURAL SPACES: No pleural effusion or pneumothorax. LUNGS: Heterogeneous consolidative opacities in both lower lobes can be seen with pneumonia. Severe centrilobular emphysema is again demonstrated. AIRWAYS: Airway wall thickening suggesting inflammation is noted. Central airways are patent to the segmental bronchial level. BASE OF NECK: 5 mm rim calcified thyroid nodule is notedwhich does not require specific sonographic follow-up. ABDOMEN: Visualized upper abdomen unremarkable. BONES: A comminuted left proximal humeral fracture is incompletely imaged. Status post right reverse shoulder arthroplasty with anterior subluxation/dislocation of the hardware relative to the glenoid. A subacute fracture of the sternum is noted (602:74). Compression deformities of the T1 and T11 vertebral bodies are unchanged. SOFT TISSUES: Soft tissue stranding is seen within the left shoulder secondary to the humeral fracture. 1. No pulmonary embolism or acute aortic pathology. 2. Severe emphysema with mild dilatation of thepulmonary artery measuring up to 3.1 cm, unchanged, which can be seen with pulmonary arterial hypertension. 3. Mild dilatation of the ascending and descending thoracic aorta, unchanged. See recommendations below. 4. Heterogeneous consolidative opacities in both lower lobes may reflect pneumonia. 5.Acute, comminuted left proximal humeral fracture. 6. Status post reverse right shoulder arthroplasty with anterior subluxation/dislocation of the humeral component relative to the glenoid. 7. Chroniccompression deformities of T1 and T11 vertebral bodies. RECOMMENDATION(S): Follow-Up Imaging: Thoracic aorta 4.0 - 4.4 cm in diameter - if stable findings at 12 months or interval increase in diameter is < 3 mm, consider follow-up with ECG-gated chest CTA in 2 years. Management recommendations for follow-up of thoracic aortic aneurysm are based on existing literature and multidisciplinary consensus document of our institution, including Cardiology, Vascular Surgery, and Cardiac Surgery and it is specifically designed for this program. Carito EM, et al. ACC/AHA Guideline for the Diagnosis and Management of Aortic Disease: A Report of the [place] [employer] College ofCardiology Joint Committee on Clinical Practice Guidelines. Circulation 2021; 146:f346-y181. Tracey R, et al. ESC Guidelines on the diagnosis of thoracic and abdominal aorta of the adult. Eur Heart J 2014;35:9997-8176. Cindy TURCIOS, et al. The Society of Vascular Surgery practice guidelines on the care of patients with an abdominal aortic aneurysm. J Vasc Surg 2018;67:2-77. Joseph V, et al. Management of Descending Thoracic Aortic Disease: Clinical Practice Guidelines of the Society of Vascular Surgery. Eur J Vasc Endovasc Surg 2017;53:4-52. Akanksha Ríos MD, electronically signed on Aug 19 2025 07:13PM US Lower Extremity Venous Left Result Date: 08/19/2025 EXAMINATION: US LOWER EXTREMITY VENOUS LEFT INDICATION: Left lower extremity pain and edema. TECHNIQUE: Mullen scale, color, and spectral Doppler evaluation was performed on the left lower extremity veins. The patient could not tolerate evaluation of the calf veins. COMPARISON: None. FINDINGS: There is normal compressibility, color flow, and spectral doppler of the left common femoral, femoral, andpopliteal veins. The patient was unable to tolerate evaluation of the calf veins. There is normal respiratory variation in the common femoral veins bilaterally. No evidence of medial popliteal fossa ([place]) cyst. Unable to evaluate the calf veins, but there is no evidence of deep venous thrombosis in the other left lower extremity veins. BY ELECTRONICALLY SIGNING THIS REPORT, I THE ATTENDING PHYSICIAN ATTEST THAT I HAVE REVIEWED THE IMAGES FOR THE ABOVE PROCEDURE(S) AND AGREE WITH THE FINDINGS DOCUMENTED. Geo Ríos MD, electronically signed on Aug 19 2025 07:17PM CT Cervical Spine Without Contrast Result Date: 08/19/2025 EXAMINATION: CT CERVICAL SPINE WO CONTRAST INDICATION: s/p fall; TECHNIQUE: Contiguous axial imagesobtained through the cervical spine without intravenous contrast. Coronal and sagittal reformats were reviewed. DOSE: Acquisition sequence: 1) Sequenced Acquisition 18.0 s, 18.0 cm; CTDIvol = 50.2 mGy (Head) DLP = 903.1 mGy-cm 2) Spiral Acquisition 5.7 s, 21.2 cm; CTDIvol = 24.5 mGy (Body) DLP = 518.9 mGy-cm Total DLP (Body) = 519 mGy-cm Total DLP (Head) = 903 mGy-cm Note: This radiation dose report was copied from accession #[id number] (CT HEAD WO CONTRAST) COMPARISON: CT chest 07 August 2025 FINDINGS: Reversal of the normal cervical lordosis is demonstrated. No traumatic malalignment. R otation of C1 on C2 is likely due to head positioning within the scanner. No definite acute fractures are identified. There is moderate anterior height loss of the T1 vertebral body, unchanged from prior CT from July 2025. [id number] multilevel degenerative changes with intervertebral disc space narrowing, endplate sclerosis, and osteophyte formation. No high-grade central canal stenosis. Mild multilevel neural foraminal stenosis without high-grade narrowing.There is no prevertebral edema. Stranding in the left supraclavicular soft tissues relates to a left proximal humeral fractureas seen on the biochemistry teacher views. Severe emphysema is noted in the left lung apex. Thyroid gland demonstra kasi a rim calcified 5 mm nodule on the right which does not require dedicated imaging follow-up. 1. No acute cervical spine fracture or traumatic malalignment. 2. Left proximal humeral fracture imaged on the biochemistry teacher view. 3. Chronic compression deformity of the T1 vertebral body. Akanksha Ríos MD, electronically signed on Aug 19 2025 06:57PM CT Head Without Contrast Result Date: 08/19/2025 EXAMINATION: CT HEAD WO CONTRAST [id number] CT BID-HEAD INDICATION: s/p fall; TECHNIQUE: Contiguous axial images of the brain were obtained without contrast. Coronal and sagittal reformations as well as bone algorithm reconstructions were provided and reviewed. DOSE: Acquisition sequence: 1) Sequenced Acquisition 18.0 s, 18.0 cm; CTDIvol = 50.2 mGy (Head) DLP = 903.1 mGy-cm 2) Spiral Acquisition 5.7 s, 21.2 cm; CTDIvol = 24.5 mGy (Body) DLP = 518.9 mGy-cm Total DLP (Body) = 519 mGy-cm Total DLP (Head) = 903 mGy-cm COMPARISON: None. FINDINGS: There is no evidence of fracture, acute large territorial infarction, hemorrhage, edema, or mass. There is prominence of the ventricles and sulci sugg estive of involutional changes. Moderate periventricular and subcortical white matter hypodensitiesare nonspecific, but likely reflect the sequela of chronic microvascular infarction. The visualizedportion of the paranasal sinuses, mastoid air cells, and middle ear cavities are clear. Patient is status post bilateral lens replacements. 1. No acute intracranial abnormality. Akanksha Ríos MD, electronically signed on Aug 19 2025 06:49PM XR Shoulder 2+ VW Right Result Date: 08/14/2025 EXAMINATION: XR SHOULDER 2+ VW RIGHT INDICATION: R Shoulder Pain; TECHNIQUE: Three views right shoulder COMPARISON: 01 August 2025 Redemonstrated reverse right shoulder arthroplasty with grossly intact hardware and maintained alignment. There is no acute fracture.. Slight interval decrease in streaky opacities in the right upperlung zone. Mild degenerative changes at the glenohumeral joint.. Kate Lugo MD, electronically signed on Aug 14 2025 02:56PM CT Angiogram Chest PE : Arteriogram Result Date: 08/08/2025 EXAMINATION: CTA CHEST WITH CONTRAST INDICATION: patient with new 02; TECHNIQUE: Axial multidetector CT images were obtained through the thorax after the uneventful administration of intravenous contrast including reformatted coronal, sagittal, and oblique and axial maximal intensity projection (MIP) images. DOSE: Acquisition sequence: 1) Sequenced Acquisition 0.5 s, 0.2 cm; CTDIvol = 7.2 mGy (Body) DLP = 1.4 mGy-cm 2) Stationary Acquisition 3.7 s, 0.2 cm; CTDIvol = 61.8 mGy (Body) DLP = 12.4 mGy-cm 3) Spiral Acquisition 5.4 s, 35.0 cm; CTDIvol = 12.6 mGy (Body) DLP = 431.5 mGy-cm Total DLP (Body) = 445 mGy-cm COMPARISON: Outside CT chest available in the [facility] 28 May 2025 FINDINGS: VASCULATURE: No pulmonary embolism to the subsegmental level. The ascending thoracic aorta is mildly dilated measuring up to 4.1 cm. There are mild atherosclerotic calcifications of the thoracic aorta. HEART: Normal heart size. Mild atheromatous coronary calcifications. No significant pericardial effusion. AXILLA, MARCELL, AND MEDIASTINUM: No lymphadenopathy or mass. Mildly dilated air- filled and patulous esophagus predominantly in the upper and midportion. PLEURAL SPACES: No pleural effusion or pneumothorax. LUNGS: Postsurgical changes from left upper posterior segmentectomy. Diffuse emphysematouschanges noted in bilateral lung villavicencio in the form of emphysematous bullae, more so in the bilateral upper lobes. Few patchy areas of ground-glass in noted in the apical segment of bilateral upper lobe,likely representing mild mosaic attenuation related to regional differences in ventilation. Fibroatelectatic changes noted involving the most of the right upper lobe, posterior and lateral segmentof right lower lobe and apicoposterior segment of left upper lobe. There is a 2.3 by 1.5 cm irregular subpleural consolidative opacity in the right lung base and an additional 16 mm subpleural nodular opacity in the medial right lung base. AIRWAYS: Patent central airways. There are filling defects noted in the anterior aspect of the left mainstem bronchus, likely secretions. Bilateral lower lobe p redominant diffuse bronchial wall thickening most pronounced in the right lower lobe with scatteredareas of mucous plugging. BASE OF NECK: Limited evaluation due to metallic artifacts from processesin right humerus, grossly normal. Lines and tubes: Trans subclavian atrial ventricular pacer leads continuous from left pectoral generator flow expected course. ABDOMEN: The study is not tailored for subdiaphragmatic evaluation. Partially imaged small hepatic cyst. Partially imaged scattered calcifications in the pancreas likely sequela of chronic pancreatitis BONES: Reduced height T1 and T10 vertebral body noted, likely compression fracture. Visualized spine shows degenerative changes in the form of osteophytes. Mild scoliosis with convexity towards right side. SOFT TISSUES: Unremarkable. No evidence of acute pulmonary embolism or aortic abnormality. Bilateral lower lobe predominant diffuse bronchial wall thickening most pronounced in the right lower lobe with areas of mucoid impaction. Subpleural nodular consolidative opacities in the right lung base, likely infectious or inflammatory etiology possibly related to aspiration. Stable postsurgical changes left upper lobe. Mildly dilated air-filled and patulous esophagus, may be related to reflux/dysmotility. Other stable findings BY ELECTRONICALLY SIGNING THIS REPORT, I THE ATTENDING PHYSICIAN ATTEST THAT I HAVE REVIEWED THE IMAGES FOR THE ABOVE PROCEDURE(S) AND AGREE WITH THE FINDINGS DOCUMENTED. Noble Clements MD , Kate Lugo MD, electronically signed on Aug 08 2025 11:37PM US Upper Extremity Venous Right Result Date: 08/08/2025 EXAMINATION: US UPPER EXTREMITY VENOUS RIGHT INDICATION: Right upper extremity edema. TECHNIQUE: Mullen scale and Doppler evaluation was performed on the right upper extremity veins. COMPARISON: None. FINDINGS: There is normal flow with respiratory variation in the bilateral subclavian veins. The right internal jugular, axillary, and brachial veins are patent, show normal color flow, spectral doppler, and compressibility. The right basilic, and cephalic veins are patent, compressible and show normal color flow. No evidence of deep vein thrombosis in the right upper extremity. BY ELECTRONICALLY SIGNING THIS REPORT, I THE ATTENDING PHYSICIAN ATTEST THAT I HAVE REVIEWED THE IMAGES FOR THE ABOVE PROCEDURE(S) AND AGREE WITH THE FINDINGS DOCUMENTED. Shivani Mcelroy MD , David Duran MD, electronicallysigned on Aug 08 2025 05:11PM XR Chest 1 VW Result Date: 08/08/2025 EXAMINATION: XR CHEST 1 VW INDICATION: increased 02 post op; increased 02 post op; TECHNIQUE: AP portable chest. COMPARISON: 06 August 2025 chest radiograph Since 06 August 2025 chest radiograph, stable nonspecific interstitial opacities, most notable inthe right upper lung. These opacities may represent pneumonia in the appropriate clinical context, although they may also represent chronic emphysematous changes or other chronic disease. Recommend CT chest with contrast for further evaluation. No significant pneumothorax. No significant pleural abnormality. Mildly increased retrocardiac opacity may be minimal atelectasis. Unremarkable cardiomediastinal silhouette. Monitoring and support devices are unchanged. Multiple serpiginous opacities distributed throughout the view of the hemithorax are likely outside of the patient. RECOMMENDATION(S):CT chest with contrast NOTIFICATION: The findings were discussed with, and acknowledged by Ching Martin by Dr. Cristopher Perry, using [employer] Secure Chat on 08/07/2025 at 3:01 pm, 5 minutes after discovery of the findings. BY ELECTRONICALLY SIGNING THIS REPORT, I THE ATTENDING PHYSICIAN ATTEST THAT I HAVE REVIEWED THE IMAGES FOR THE ABOVE PROCEDURE(S) AND AGREE WITH THE FINDINGS DOCUMENTED. Duran Chaudhari MD, electronically signed on Aug 08 2025 09:02AM ECG 12 lead Result Date: 08/07/2025 Sinus rhythm with frequent premature ventricular depolarizations and atrial paced complexes Inferior infarct , age undetermined Abnormal ECG When compared with ECG of 06-Jul-2025 09:09, Inferior infarct is now present Chest 1 VW Portable Result Date: 08/06/2025 EXAMINATION: XR CHEST 1 VW PORTABLE INDICATION: 74F history of emphysema now with shortness of breath despite nebulizers; There are no prior chest radiographs. The combination of severe emphysema and moderate interstitialpulmonary abnormality could all be smoking related. However without prior chest radiographs I can not tell if the interstitial abnormality is an acute problem such as mild pulmonary edema and perhapseven concurrent right upper lobe pneumonia. Any prior chest radiographs performed elsewhere should be obtained for apty-rx-irdv comparison. Heart size is normal. No appreciable pleural abnormality ispresent. Trans subclavian atrial ventricular pacer leads continuous from the left pectoral generator follow expected courses. Romel Glynn MD, electronically signed on Aug 06 2025 09:04AM XR Shoulder 2+ VW Right Result Date: 08/02/2025 EXAMINATION: XR SHOULDER 2+ VW RIGHT INDICATION: R Shoulder Pain; TECHNIQUE: AP internal rotated, Grashey, and AP view of the right shoulder. COMPARISON: Right shoulder radiograph performed 11 July 2025 FINDINGS: Status post reverse total shoulder arthroplasty. There is an interval migration of the glenoid hardware with the glenosphere now directed anteriorly. The screws of the glenoid hardware appear to be directed posteriorly. There is mild anterior/inferior subluxation, possible dislocation of the humeral component. There is a focal opacity projected over the peripheral aspect of the right mid lung, recommend outpatient CT chest to better characterize. There are partially imaged cardiac leads. RECOMMENDATION(S): Recommend outpatient CT chest to better characterize focal lung opacity. NOTIFICATION: Per chart review, this hardware failure was addressed at clinic and the patient was taken to the OR for revision, and right shoulder hemiarthroplasty. The recommendation above regarding CT chest was entered by Dr. Carlos A Hummel on 08/02/2025 at 06:20 into the Actionable Findings Management dashboard for communication to the referring provider. BY ELECTRONICALLY SIGNING THIS REPORT, I THE ATTENDING PHYSICIAN ATTEST THAT I HAVE REVIEWED THE IMAGES FOR THE ABOVE PROCEDURE(S) AND AGREE WITH THE FINDINGS DOCUMENTED. Carlos Renteria MD , Carlos A Hummel MD, electronically signed on Aug 02 2025 06:21AM XR Shoulder AP Right Portable Result Date: 08/01/2025 EXAMINATION: XR SHOULDER AP RIGHT PORTABLE INDICATION: post op revision right shoulder; COMPARISON:31 July 2025 FINDINGS: Interval right-sided reverse glenohumeral arthroplasty revision. No fracture seen. Right upper lobe infiltrates raise possibility of pneumonia. Imaging follow-up recommended. Miles Ortiz MD, electronically signed on Aug 01 2025 06:20PM XR Shoulder 1 VW Right Result Date: 08/01/2025 INDICATION: Pain TECHNIQUE: 1 axillary view of the right shoulder COMPARISON: 11 July 2025 radiographs FINDINGS: There is a reversed right shoulder arthroplasty which on this single view appears in good alignment. No definite periprosthetic lucency. There are old right-sided rib fractures. Fredy Hunter MD, electronically signed on Aug 01 2025 07:46AM EKG: Last EKG ECG 12 lead Collection Time: 08/24/25 9:39 AM Result Value Ref Range Ventricular Heart Rate 98 BPM Atrial Heart Rate 98 BPM UT Interval 174 ms QRSD Interval 106 ms QT Interval 354 ms QTC Interval 451 ms P [place] 51 degrees R [place] 1 degrees T Wave [place] 16 degrees Narrative Sinus rhythm with premature atrial depolarizations When compared with ECG of 23-Aug-2025 00:35, No significant change was found *Note: Due to a large number of results and/or encounters for the requested time period, some results have not been displayed. A complete set of results can be found in Results Review. Assessment/Plan Mayra T Craft is a 74F with COPD, HFrEF, recent complicated R shoulder arthroplasty followed by a fall then led to revision/hemiarthroplasty (08/01) and RUE DVT with marked swelling/pain, now with progressive inability to extend R wrist/fingers worsening during this admission. Progressive distal RUE extensor weakness after shoulder revision surgery, in the context of substantial inflammatory process and DVT, most consistent with peripheral nerve impingement, highest concern for radial neuropathy from trauma related and/or lynette-operative injury, and/or compressive neuropathy (given surround tissue edema, anterior shoulder dislocation). Brachial plexopathy remains on thedifferential given postoperative onset and proximal arm weakness (though confounded/limited by pain). C7/C8 radiculopathy is possible given chronic neck pain; central process a bit less likely but should be ruled out given hyperreflexia in BLE. Plan - MRI brachial plexus (right) with/without contrast - Post-operative and pain management per primary and Ortho - Consider EMG/NCS or nerve ultrasound, however, would hold off pending imaging results given technically difficulty in the setting of skin/tissue wound/swelling and difficulty positioning. - Consider MRI cervical spine if above tests negative and no etiology identified Neurology will continue to follow. This patient was discussed with consult attending Dr. Alcantara. Jersey Oviedo MD ([place]) PGY-3 Neurology Resident [1] Past Medical History: Diagnosis Date COPD (chronic obstructive pulmonary disease) ([facility]) [2] Past Surgical History: Procedure Laterality Date lung resection , left 2017 ARTHROPLASTY REVERSE SHOULDER Right 07/11/2025 Surgeon: Harpreet Goins MD; Location: [facility] OR; Service: Orthopaedics; Laterality: Right; ARTHROPLASTY REVERSE SHOULDER Right 08/01/2025 Surgeon: Harpreet Goins MD; Location: [facility] OR; Service: Orthopaedics; Laterality: Right; INTERVENTIONAL RADIOLOGY PROCEDURE 08/27/2025 IR NON TUNNELED VASCULAR CATHETER 08/27/2025 Sammi Mckeon MD [facility] GZ3 IR CARDIAC SURGERY INSERT PACEMAKER PERMANENT JOINT REPLACEMENT KNEE ARTHROSCOPY Left around 15 years ago rectus sheath hematoma [3] Social History Tobacco Use Smoking status: Former Current packs/day: 0.00 Average packs/day: 1.5 packs/day for 54.0 years (81.0 ttl pk-yrs) Types: Cigarettes Start date: 1962 Quit date: 2017 Years since quittin.9 Smokeless tobacco: Never Substance Use Topics Alcohol use: Never Drug use: Never [4] Social History Tobacco Use Smoking Status Former Current packs/day: 0.00 Average packs/day: 1.5 packs/day for 54.0 years (81.0 ttl pk-yrs) Types: Cigarettes Start date: 1962 Quit date: 2017 Years since quittin.9 Smokeless Tobacco Never [5] Allergies Allergen Reactions Tetracyclines Hives, Rash and Unknown In mouth Hives; In mouth Substance with tetracycline structure (substance) Gabapentin Headaches and Other (See Comments) Shakes, syncope Psychological [6] No family history on file. [7] apixaban, 5 mg, Oral, BID ascorbic acid, 500 mg, Oral, Daily atorvaSTATin, 20 mg, Oral, Nightly buprenorphine-naloxone, 1 Film, Sublingual, TID cholecalciferol, 1,000 Units, Oral, Daily cycloSPORINE, 1 drop, Both Eyes, BID ferrous sulfate, 325 mg, Oral, Daily with breakfast [Held by provider] furosemide, 20 mg, Oral, Daily sodium chloride, 10-40 mL, Intravenous, Daily And heparin (porcine) (PF), 1-4 mL, Intravenous, Daily levothyroxine, 50 mcg, Oral, Daily (0600) uofdsr-npzrocxu-ncrdgik (pork), 48,000 units of lipase, Oral, TID with meals methocarbamoL, 500 mg, Oral, 4 times daily metoprolol tartrate, 12.5 mg, Oral, BID mometasone-formoterol, 2 puff, Inhalation, BID multivitamin with minerals tablet, 1 tablet, Oral, Daily omeprazole, 20 mg, Oral, Daily (0600) PARoxetine, 20 mg, Oral, QAM sodium chloride, 3 mL, Intravenous, Q12H KALEY polyethylene glycol, 17 g, Oral, BID pregabalin, 75 mg, Oral, BID sacubitriL-valsartan, 0.5 tablet, Oral, BID sennosides, 17.2 mg, Oral, BID tiotropium bromide, 2 puff, Inhalation, Daily RT [8] [9] acetaminophen aluminum-magnesium hydroxide-simethicone benzocaine-menthoL bisacodyl calcium carbonate guaiFENesin sodium chloride AND heparin (porcine) (PF) AND sodium chloride AND heparin (porcine) (PF) ipratropium-albuteroL lidocaine HCL lidocaine HCL LORazepam ondansetron OR ondansetron oxyCODONE Insert and Maintain Peripheral IV AND sodium chloride AND sodium chloride Cosigned by Stephanie Kang MD at 08/30/2025 10:43 PM EST Associated attestation - Stephanie Gonzales MD - 08/30/2025 10:43 PM EST I saw and evaluated the patient. I reviewed the resident/fellow???s notes on 08/30/2025 and agree with the findings and plan of care Pt is a 74 yo with hx of opioid use disorder, on low dose subxone , SS s/p dcICD, HFrEF (ef 40%) 2/2 niCM, moderate MR, NSVT with 10% PVC burden, non- obstructive CAD (CTA 2021), COPD with severe emphysema and 4L O2 dependence, NSCLC (adenocarcinoma) s/p left lung surgery 2016, with chronic right shoulder pain, s/p reverse total shoulder arthroplasty on 07/01 and conversion on hemiarthroplasty on 08/01. She was discharged to SNF on 08/10. Seen by orthopedics post op on 08-14 with ongoing swellingright arm and severe pain at the elbow, complicated by wound over the olecranon with no notes aboutwrist drop She presented to ED on 08/20 after fall with LEFT shoulder pain and acute on chronic exacerbation on right shoulder pain In the admission, some concern of EPL/FPL firing weakly due to pain. She was to have DVT on Right shoulder. Started on heparin gtt. Found to have elevated CRP on 293, with concern for septic arthritis s/p IVABX with no growth. Neurology now consulted for right wrist drop.. Pt reports she first noticed weakness after 2nd surgery. She has severe pain in bilateral hands/arms with wounds and extensive dressing around the elbow. She has swelling on right UE, wihich had partiallyimproved per nurse at bedside. Nurse is not sure how low the wrist drop is present as before she had extensive swelling. On exam she has ignacio arm bruises with dressing the elbow/foream. she is a/ox3, speech is clear. No gross cn abnormalities. Motor exam limited by pain, She was told to limited shoulder abduction by herortho? Biceos and triceps are at least 4- in the right, She has right wrist drop MRC 1, WF 4, FE 1,FF 3, IO 3 and APB - limited due to position. She is unable to pronate or supinate right arm due to pain. Sensation is grossly intact to pin in radial territory, some decrease pin sensation around deltoid. She does have some distal sensory loss to pin in distal UE and LE. DTRS are unable to test inthe UE due to pain. Brisk in the LE Exam suggestive of right wrist drop suggestive of radial palsy.. Rest of the exam is limited due topain, so uncertain if other nerves involved in less degree. It does not look she has significant sensory loss, which would suggest more a PIN lesion.However, given recent surgeries and chronic shoulder pain, would like to rule rule out a more proximal compression of radial nerve vs brachial plexus.Given her pain and extensive dressing due to wounds, I am not sure emg will be useful, but we couldconsider after MRI brachial. plexus Recommend ortho revaluation of shoulder give new wrist drop. Avoid significant compression of forearm with the dressing. Signed: Stephanie Kang MD 08/30/2025 * Venancio Green LCSW - 08/23/2025 2:57 PM ESTAssociated Order(s): IP CONSULT TO SOCIAL WORK Social Work - Initial Assessment Patient: Mayra Craft : 1950 Age: 74 y.o. Gender: female Relationship status: single Income Source: SSA benefits Insurance: Payor: MEDICARE / Plan: MEDICARE A & B / Product Type: Traditional / Indemnity / Income or financial concerns: Yes Location: [address] Admit Date: 08/19/2025 Inpatient Status Admit Date: 08/20/25 Spoke with patient. Social Work assessment completed. Patient is able to participate in interview. Insert Patient preferred language: Slovenian Rodeo Clown utilized: No Communication Barriers: N/A Principal Problem: Closed comminuted fracture of left humerus, initial encounter Advance directives on file: Yes, patient has health care proxy on file. Per document HCP if invokedwould be pt's son, Rory Craft at phone: [phone]. Code Status: Full Code Assessment: Referral Data Referral Source: Physician Referral Reason: Counseling/support, Psychosocial assessment, Mental health, Information referral education Patient Information Type of Residence: Private residence Who lives with you here: Lives alone Living Arrangement: Private residential, Lives alone Primary Caregiver: Self Druze/Cultural Factors: Pet Rib Builder Support System: Immediate family, Extended family Violence/Abuse/Safety Concerns: Denies current or hx of SI/HI/AH/VH. Family hx of suicide. Identified strengths and coping: Resilience, Family Support, Community Support, Self-directed, Obligation to pets, Above Average/Average Intelligence, Watching Documentaries, Help-seeking, Systems Knowledge, Social Media, Talking w/ Friends Patient/family understanding of illness/condition: Fair Impressions/Clinical Formulation: Ms. Mayra Craft is a White, , retired 74 yo F w/ PMH ofMDD/CHRIS, opioid use disorder in sustained remission on suboxone, Chronic R rotator cuff arthropathy, SSS, HFrEF, moderate MR, NSVT, non-obstructive CAD, COPD w/ severe emphysema and O2 dependence, NSCLC p/w L shoulder pain after fall at SNF fth L humeral fx and RUE DVT Tx team consulted SW for coping support and information, referral, and education. SW reviewed OMR and discussed pt w/ tx team at [facility]. SW met w/ pt at bedside. Pt was Aox4, goal- directed, future-oriented and denies SI/HI/AH/VH. Pt's mood is scared w/ congruent, full, anxious affect and cooperative, engaged attitude. Pt lives al one w/ 4 dogs, and has 4 children and 7 grandchildren, two of whom who live nearby and have frequently visited while she's been admitted. [place] w/ 3 siblings and her parents. Pt reports multiple family members, including her father, having substance use disorders.Pt shares racing thoughts, tearfulness, and emotional reactivity iso limited dexterity of both hands and loss of independence. Pt reports being very self-reliant and physically active immediately prior to injuries and has been appropriately distressed by impairments that limit her ability to complete most ADLs/IADLs. Pt is receptive to client-centered, solution-focused interventions, including ope n-ended questions, validations, double-sided reflections, and exception questions that support self-efficacy, identify coping strategies, express empathy, and encourage affect. Interventions: SW Care Plan Interventions Collaborate with multi-disciplinary team: reviewed case with active care team members, consulted with other care bridge/structure inspection team leader, reviewed SDOH with multii- disciplinary team Psychosocial Assessment and Support: psychosocial education, adjustment to illness, normalization/validation to emotion response to medical crisis, bereavement, strengths and coping skills, empowerment, trauma response, assess barriers to care, supportive counseling Discharge planning tasks: coordination of d/c plans Plan:SW will f/u as needed for coping support. Page SW w/ acute needs. Venancio Green LCSW 08/23/2025 * Navdeep Cleary MD - 08/22/2025 5:58 PM ESTAssociated Order(s): IP CONSULT TO INPATIENT CHRONIC PAIN SERVICE Chronic Pain Service Initial Consultation Date of Consult: 08/22/2025 Patient: Mayra Craft : 1950 Attending: Nadir Lewis MD Primary Care Physician: Vanessa Culver MD Admit Date: 08/19/2025 CPS consult day#: 1 Primary Problem: Principal Problem: Closed comminuted fracture of left humerus, initial encounter (POA: Yes) Reason For Consultation: Management of Acute on Chronic Pain HPI: Mayra Craft is a 74 y.o. 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 recent hospitalization 08/01-08/10 with SOB felt combo of slight CHF exacerbation and COPDE/PNA mucoid impaction,dced to SNF presented with worsening b/l shoulder pain after fall at SNF 4 days ago found to have L humeral Fx and RUE DVT seen at the request of Nadir Lewis MD for acute on chronic pain Chart Review: - - misjudging sitting down onto toilet seat, fell onto L shoulder - ortho reviewed CT, acceptable aligmment amenable to non-operative treatment, mmobilization in a sling. She can come out of the sling for gentle pendulum range of motion. She may use the left upper extremity for light activity daily living but no heavy lifting more than 5 pounds. - ortho followup 1-2 weeks followup xrays L shoulder - Chronic R rotator cuff arthropathy s/p R total shoulder arthroplasty 07/11/25 then conversion to R shoulder hemiarthroplasty with glenoid and humeral implant on 08/01/25 - S/p Ir drain of right shoulder - was treated with bactrim 08/01-08/10 for PNA, has BLL opacities here - DVT of right shoulder - heparin gtt for DVT r shoulder Home Regimen: - Suboxone 4-1 Mass PAT: - confirmed suboxone - Oxycodone 5, 30 pills, filled 08/12 - Oxycodone 5, 7 pills, filled 08/12 - Oxy 5, 86 pills filled 08/17 MME Calculations : with suboxone 4mg (120 MME) 08/22: Dilaudid 4mg PO x4, moprhine IV 4mg x 3 = 212 MME 08/21: Dilaudid 4mg PO x 2, morphine 2mg IV x 1, moprhine 4mg IV x 6, oxycodone 5mg x1 = 245.5 08/20:Dilaudid 0.5 IV x3, morphine 2mg IV x2, morphine 4mg IV x2, oxycodone 5mg x 3 - Reports chronic right shoulder issues from overwork for several years, including a rotator cufftear. - Pain is severe, described as 8-10/10, throbbing, and fluctuating. It is limiting participation inoccupational therapy. - Reports a recent episode of severe pain lasting two hours overnight, where analgesia was ineffective. - Has difficulty with activities of daily living, requiring assistance with feeding due to bilateral shoulder pain and functional limitation. - Associated symptoms include constipation. Has had one bowel movement after two suppositories. Also experiencing what feels like pancreatitis pain. Past Medical History: - Medical history: Chronic pancreatitis. Long-term opioid use for pain management (10 years). - Social history: On Suboxone since 05/2025 for opioid use disorder. - Allergies: Gabapentin (causes fatigue and emotional lability). - Medications: Suboxone. Current inpatient medications include Dilaudid and morphine for breakthrough pain, which are reported as ineffective. Also prescribed Tylenol as needed (being held to monitorfor fever). Miralax recommended. Has not tried Lyrica (pregabalin). Allergies: Tetracyclines and Gabapentin Medical/Surgical History: Past Medical History[1] Past Surgical History[2] Social/Family History: Social History[3] Family History[4] Medications Prior to Admission: Updated List Medication Sig Start Date End Date Taking? Authorizing Provider aspirin 81 MG EC tablet Take 1 tablet (81 mg total) by mouth in the morning and 1 tablet (81 mg total) before bedtime. Patient taking differently: Take 1 tablet (81 mg total) by mouth in the morning. 08/10/25 09/21/25 Yes NORMA Moran buprenorphine-naloxone (SUBOXONE) 8-[address] 1 Film under the tongue in the morning. Patient taking differently: Place 0.5 Film under the tongue at bedtime. 08/10/25 Yes NORMA Moran acetaminophen (TYLENOL) 500 MG tablet Take 2 tablets (1,000 mg total) by mouth in the morning and 2tablets (1,000 mg total) in the evening and 2 tablets (1,000 mg total) before bedtime. 08/10/25 NORMA Moran albuterol HFA (VENTOLIN HFA) 90 mcg/actuation aerosol inhaler Inhale 2 puffs every 4 hours as needed for wheezing or shortness of breath. 08/10/25 NORMA Moran ALPRAZolam (XANAX) 0.5 MG tablet Take 1 tablet (0.5 mg total) by mouth daily as needed for anxiety (prior to dental procedures). 08/10/25 NORMA Moran ascorbic acid (VITAMIN C) 500 MG tablet Take 1 tablet (500 mg total) by mouth in the morning. 08/11/25 NORMA Moran atorvaSTATin (LIPITOR) 20 MG tablet Take 1 tablet (20 mg total) by mouth at bedtime. 08/10/25 NORMA Irvin bisacodyl (DULCOLAX) 5 mg EC tablet Take 2 tablets (10 mg total) by mouth daily as needed for constipation (3rd line; Give 12 hours after magnesium hydroxide for unrelieved constipation). 08/10/25 NORMA Moran wexglrxyqu-ubwfglau-wjrjqlthin 160-9-4.8 mcg/actuation HFAA INHALE 2 PUFFS BY MOUTH TWICE DAILY. RINSE AFTER USE Historical Provider, calcium carbonate (TUMS) 200 mg calcium (500 mg) chewable tablet Chew 1 tablet (500 mg total) in the morning. 08/11/25 NORMA Moran cholecalciferol (VITAMIN D3) 1,000 unit tablet Take 1 tablet (1,000 Units total) by mouth in the morning. 08/11/25 NORMA Moran cycloSPORINE (RESTASIS) 0.05 % ophthalmic emulsion Administer 1 drop to both eyes in the morning and 1 drop before bedtime. 08/10/25 NORMA Moran diazePAM (VALIUM) 5 MG tablet TAKE 1 TABLET BY MOUTH 1 HOUR BEFORE PROCEDURE 04/26/25 Historical Provider, furosemide (LASIX) 20 MG tablet Take 1 tablet (20 mg total) by mouth 3 times a week (Mon, Wed, Wed). 08/13/25 NORMA Moran ibuprofen (MOTRIN) 800 MG tablet Take 1 tablet (800 mg total) by mouth every 8 hours as needed for pain. 06/16/22 Historical Provider, ipratropium (ATROVENT) 0.02 % nebulizer solution Take 2.5 mL (0.5 mg total) by nebulization every 8hours as needed for wheezing. 08/10/25 NORMA Moran levothyroxine (SYNTHROID, LEVOXYL) 50 MCG tablet Take 1 tablet (50 mcg total) by mouth every morning. 08/11/25 NORMA Moran hnrufr-fpnwvvsz-cxgflac, pork, (CREON) 24,000-76,000 -120,[address] capsule Take 2 capsules (48,000 units of lipase total) by mouth in the morning and 2 capsules (48,000 units of lipase total)at noon and 2 capsules (48,000 units of lipase total) in the evening. Take with meals. 08/10/25 NORMA Moran LORazepam (ATIVAN) 0.5 MG tablet Take 1 tablet (0.5 mg total) by mouth in the morning and 1 tablet (0.5 mg total) before bedtime. 08/10/25 NORMA Moran metoprolol ER (TOPROL-XL) 25 MG 24 hr tablet Take 0.5 tablets (12.5 mg total) by mouth in the morning and 0.5 tablets (12.5 mg total) before bedtime. 08/10/25 NORMA Moran mometasone-formoterol (Dulera) 100-5 mcg/actuation inhaler Inhale 2 puffs in the morning and 2 puffs before bedtime. 08/10/25 NORMA Moran omeprazole (PriLOSEC) [address] capsule Take 1 capsule (20 mg total) by mouth every morning. 08/11/25 NORMA Moran oxyCODONE (ROXICODONE) 5 MG immediate release tablet Take 1 tablet (5 mg total) by mouth every 4 hours as needed for pain. 08/10/25 NORMA Moran PARoxetine (PAXIL) 20 MG tablet Take 1 tablet (20 mg total) by mouth every morning. 08/11/25 NORMA Moran polyethylene glycol (MIRALAX) 17 gram packet Take 1 packet (17 g total) by mouth daily as needed (first line). 08/10/25 NORMA Moran potassium chloride ER (MICRO-K) 10 MEQ ER capsule Take 1 capsule (10 mEq total) by mouth in the morning. 04/18/25 Historical Provider, sacubitriL-valsartan (ENTRESTO) 24 mg-26 mg Tab per tablet Take 0.5 tablets by mouth in the morningand 0.5 tablets before bedtime. 08/10/25 NORMA Moran tiotropium bromide (SPIRIVA RESPIMAT) 2.5 mcg/actuation Mist inhalation Inhale 2 puffs in the morning. 08/11/25 NORMA Moran ZENPEP 25,000-79,000- 105,000 unit CpDR Take 2 capsules (50,000 units of lipase total) by mouth andrefer to additional instructions. Two capsules before meals One capsule before and after snack 10/20/22 Historical Provider, Current Medications: Scheduled Meds:Scheduled Medications[5] Continuous Infusions:Infusions Meds[6] PRN Meds:PRN Medications[7] Physical Exam: BP 136/82 (BP Location: Right arm, Patient Position: Lying) Pulse (!) 91 Temp 98 ??F (36.7 ??C)(Oral) Resp 18 Ht 1.727 m (5' 8 ) Wt 58.6 kg (129 lb 1.6 oz) SpO2 94% BMI 19.63 kg/m?? General: Patient is alert, well-appearing, in pain HEENT: Normocephalic, atraumatic. No obvious facial asymmetry or lesions. Cardiovascular: No peripheral edema. No cyanosis noted. Respiratory: Breathing comfortably at rest. No audible wheezes or respiratory distress. Musculoskeletal: Limited abduction of bilateral shoulder due to pain Neurologic: Alert and oriented. Speech fluent. Psychiatric: Pleasant, cooperative. Normal affect and behavior. Labs, Imaging & Other Studies which resulted at the time of signing this note were reviewed. Notable findings include: Cr of 0.40 Na of 128 CRP of 208 Impression: Mayra Craft is a 74 y.o. 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 recent hospitalization 08/01-08/10 with SOB felt combo of slight CHF exacerbation and COPDE/PNA mucoid impaction,dced to SNF presented with worsening b/l shoulder pain after fall at SNF 4 days ago found to have L humeral Fx and RUE DVT seen at the request of Nadir Lewis MD for acute on chronic pain Discharge Diagnoses Diagnosis POA Closed comminuted fracture of left humerus, initial encounter Yes Resolved Diagnoses No resolved problems to display. Patient with acute on chronic right and acute left shoulder pain in setting of multiple surgeries on right and traumatic fall on left. Shoulder pathology complicated by DVT on right. Has significant nociceptive pain in setting of chronic opioid use for chronic pancreatitis. Recommendations: Start Morphine SATURATION DIVER 2mg, lockout interval 6 minutes, no continuous dose, 1 hour lockout of 20mg Stop PRN Morphine IV and PRN Dilaudid PO Agree with Senna and Miralax BID. Encourage fluid intake as tolerated and PRN suppository to ensureadeuqate bowel movements in setting of opioid induced constipation Will consider additional analgesics such as lyrica and duloxetine. NSAID's contraindicated in setting of heparin gtt and cardiac history Thank you for the opportunity to be part of this patients care. CPS will Continue to follow up at this point. Please don't hesitate to reach out to the CPS consult team at [facility] [id number] ([facility]) in any concern or question regarding the pain management plan for this patient. If the patient requires outpatient follow up, please schedule an appointment at the [facility] by calling [phone]. This plan was communicated with the CPS attending Signed by: Navdeep Cleary MD Interventional pain fellow Greater than 50% of this 80 minute consultation was spent teaching, counseling, and coordinating care [1] Past Medical History: Diagnosis Date COPD (chronic obstructive pulmonary disease) ([facility]) [2] Past Surgical History: Procedure Laterality Date lung resection , left 2017 ARTHROPLASTY REVERSE SHOULDER Right 07/11/2025 Surgeon: Harpreet Goins MD; Location: [facility] OR; Service: Orthopaedics; Laterality: Right; ARTHROPLASTY REVERSE SHOULDER Right 08/01/2025 Surgeon: Harpreet Goins MD; Location: [facility] OR; Service: Orthopaedics; Laterality: Right; CARDIAC SURGERY INSERT PACEMAKER PERMANENT JOINT REPLACEMENT KNEE ARTHROSCOPY Left around 15 years ago rectus sheath hematoma [3] Social History Tobacco Use Smoking status: Former Current packs/day: 0.00 Average packs/day: 1.5 packs/day for 54.0 years (81.0 ttl pk-yrs) Types: Cigarettes Start date: 1962 Quit date: 2017 Years since quittin.9 Smokeless tobacco: Never Substance Use Topics Alcohol use: Never Drug use: Never [4] No family history on file. [5] ascorbic acid, 500 mg, Oral, Daily atorvaSTATin, 20 mg, Oral, Nightly buprenorphine-naloxone, 0.5 Film, Sublingual, Daily calcium carbonate, 500 mg, Oral, Daily cholecalciferol, 1,000 Units, Oral, Daily cycloSPORINE, 1 drop, Both Eyes, BID ferrous sulfate, 325 mg, Oral, Daily with breakfast furosemide, 20 mg, Oral, Once per day on Wednesday levothyroxine, 50 mcg, Oral, Daily (0600) abjbno-koylgenr-yoogfzg (pork), 48,000 units of lipase, Oral, TID with meals metoprolol tartrate, 12.5 mg, Oral, BID mometasone-formoterol, 2 puff, Inhalation, BID morphine, 2.5 mg, Intravenous, Once multivitamin with minerals tablet, 1 tablet, Oral, Daily omeprazole, 20 mg, Oral, Daily (0600) PARoxetine, 20 mg, Oral, QAM sodium chloride, 3 mL, Intravenous, Q12H KALEY polyethylene glycol, 17 g, Oral, BID sacubitriL-valsartan, 0.5 tablet, Oral, BID sennosides, 17.2 mg, Oral, BID tiotropium bromide, 2 puff, Inhalation, Daily RT [6] heparin, 0-42 Units/kg/hr (Dosing Weight), Last Rate: 16 Units/kg/hr (08/22/25 152) morphine (PF) in 0.9 % sodium chloride, [7] acetaminophen benzocaine-menthoL bisacodyl calcium carbonate heparin AND heparin ipratropium-albuteroL LORazepam Insert and Maintain Peripheral IV AND sodium chloride AND sodium chloride simethicone Cosigned by Sandeep Viramontes MD at 08/22/2025 6:28 PM EST Associated attestation - Sandeep Viramontes MD - 08/22/2025 6:28 PM EST I have seen, interviewed and examined the above patient with the Fellow and agree with the assessment and plan. The patient had an arthroplasty right shoulder. She also has complex dependence on opioids currently on Suboxone 8 mg a day which we will continue. She has tried hydromorphone as needed morphine injections with short-term benefit. We assessed her left hand and she can push the SATURATION DIVER button. Plan will be to leave the SATURATION DIVER morphine in order to determine open needs and can adjust accordingly * Vivian Lancaster, MS CCC-ANALYTICAL DATA MINER - 08/21/2025 11:45 AM EST CLINICAL BEDSIDE SWALLOW EVALUATION Admitted: 08/19/2025 Charting Type: Initial Evaluation Current Hospitalization Admitting Diagnosis: Pain [R52] Acute pain of left shoulder [M25.512] Closed comminuted fracture of left humerus, initial encounter [S42.352A] History of Present Illness: 74 y.o. 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 Recently, she has Chronic R rotator cuff arthropathy s/p R total shoulder arthroplasty 07/11/25 then conversion to R shoulder hemiarthroplasty with glenoid and humeral implant on 08/01/25. Was hospitalized 08/01-08/10 with SOB felt combo of slight CHF exacerbation and asCOPD as well, CTA no PE. Then there was concern for possible RLL aspiration on CTA with mucoid impaction. No fever, leukocytosis, tachy however to suggest active infection, continued bactrim 08/01-08/10 after surgery. No growth from OR culture to suggest infection. R arm was swollen after surgery, in which US then was negativefor DVT. Dced to [facility] re-admitted to r/out septic arthritis This service was consulted for evaluation of oropharyngeal swallowing function, aspiration risk, and preliminary recommendations for PO diet options. IMAGING CXR 08/19 IMPRESSION: Patchy bilateral lower lobe opacities suggesting pneumonia as seen on prior CT. Partially imaged comminuted left proximal humeral fracture and anteriorly dislocated humeral component of a right shoulder arthroplasty. Respiratory Status 3 L 02 via NC Intubation This Admission No Tracheostomy No WBC WBC Date Value Ref Range Status 08/21/2025 9.58 4.00 - 10.00 K/uL Final 07/23/2019 5.28 4.5 - 11.0 K/uL Final Allergies Allergen Reactions Tetracyclines Hives, Rash and Unknown In mouth Hives; In mouth Substance with tetracycline structure (substance) Gabapentin Headaches and Other (See Comments) Shakes, syncope Psychological Pain/Safety: denied Baseline Nutritional Status Baseline Diet: regular solids/ thin Prior Level of Swallow Function: denied swallowing issues aside that she will have problems if not sitting upright and reported need for assistance with positioning and feeding given her shoulder Current Diet Oral: regular solids/thin RN Report: taking all her pills w/ water without difficulty Pt Report: I have no problems but I need to be sitting up TODAY'S EVALUATION Cognitive-Communication Status Patient Behaviors/Mood: awake, cooperative and able to interact with this clinician without any diffi\culty Orientation Level: self/ date/POC and reason of admission Expressive/Receptive Language: Informally assessed. Auditory comprehension appears intact with patient appropriately responding to simple questions, comments and directions during evaluation. Verbal expression :speaking in full sentences and able to express wants and needs without difficulty Speech: No evidence of dysarthria, apraxia of speech nor other motor speech disorder. Baseline Vocal Quality: Normal Oral Motor Function Facial (CN 7): Symmetrical Labial (CN 7): WFL for strength and ROM Lingual (CN 12): WFL for strength and ROM Mandible (CN 5): WFL for strength and ROM Palate (CN 10): Symmetrical at rest and with elevation during phonation Sensation (CN 5 - face, cheeks, lips, anterior 2/3 of tongue): intact Dentition Intact natural dentition Secretions WNL Oral Hygiene/Oral Infection Control Good Oral Care Provided: Oral cavity clean upon arrival Consistencies Assessed Consistencies: water Patient Positioning: upright in bed Oral Phase Bolus acceptance: WFL Bolus containment: WFL Mastication: WFL ice Oral manipulation: WFL Oral residue: none Suspected Esophageal Concerns Hx of GERD Response to PO Trials No overt signs or symptoms of aspiration noted across all consistencies administered. SUMMARY/IMPRESSIONS Within the constraints of a bedside swallowing assessment, the patient presents with no signs or symptoms of oropharyngeal dysphagia (single swallows/ prompt mastication, no pocketing) or prandial aspiration (i.e, no coughing/choking/ change in vocal quality , change in RR and / or changes in O2) Silent (without coughing/throat clearing etc.) aspiration cannot be ruled out at the bedside and can only be confirmed on imaging exams like Videoswallow or FEES evaluations. Based on her performanceand imaging low suspicion for possibility of silent aspiration. At this time would recommend to consider regular solids/ thin liquids using standard aspiration precautions as outlined below. Dispo asper team. Will remain available during admission shall any needs/ questions arise. Prognosis Prognosis for safe swallowing without aspiration and/or development of aspiration-related illness is good at this time with adherence to general aspiration precautions as outlined below. This swallowing pattern correlates to a Functional Oral Intake Scale (FOIS) rating of 7/7 Total oral intake with no restrictions Education Provided to: the patient,, the patient's RN,, and the medical team, Content: reason for exam, findings, recommendations, and rationale, safe swallow strategies and aspiration precautions Mode: verbal, Understanding:The patient demonstrated understanding of education provided Recommendations Diet: Regular solids/thin liquids Medications: as tolerated Aspiration precautions: Please consider to assist with positioning, feeding (inability to self feed) and food preparation (opening packages/ cutting food) as needed Feed only when alert and attentive She should be sitting upright for any and all po's Small bites Slow rate Bedside suction available in room Discontinue, if any distress or increase in wet/gurgly airway/vocal quality Maintain good oral hygiene with suction toothbrush and mouthwash. This clinician to remain available during this admission shall any questions/ concerns arise. Please page #[phone] with questions or concerns Signature and Credentials Deandre Lancaster MS-[facility]-ANALYTICAL DATA MINER Speech Language Pathologist Pager # [phone] Face Time: 11:10-11:45 Total Time: 60 08/21/25 * Cyndee Betancourt, RD - 08/21/2025 8:51 AM ESTAssociated Order(s): NURSING CONSULT TO DIETITIAN; IP CONSULT TO NUTRITION SERVICES NUTRITION INITIAL NOTE SUBJECTIVE: Patient with other providers x3 attempts. OBJECTIVE: Height: 68 in Admit weight: 56.7 kg (?source, 08/20)*tanyaos Current weight: 58.7 kg (bed, 08/21) BMI: 19 kg/m2 IBW: 63.5 kg % IBW: 89% Usual Body Weight: 56.7 kg (08/04/25) 55.6 kg (06/19/25) 57.4 kg (05/29/25) 59.6 kg (02/27/25) % Usual Body Weight: 95-102% Admission Dx: Pain [R52] Acute pain of left shoulder [M25.512] Closed comminuted fracture of left humerus, initial encounter [S42.352A] PMHx: Past Medical History: No date: COPD (chronic obstructive pulmonary disease) ([facility]) Pertinent Meds: ascorbic acid, calcium carbonate, 25mcg vitamin D3, ferrous sulfate, lasix 3x weekly (MWF), levothyroxine, creon, 2g mg sulfate (ordered for today), morphine, multivitamin w/ minerals, omeprazole, oxycodone, polyethylene glycol, 20 mEq KCl, senna, Others noted. Recent Labs 08/19/25 1710 08/19/25 1712 08/20/25 0732 08/21/25 0700 NA 130* -- 132* 132* K 4.5 -- 3.9 3.8 CL 96 100 -- 98 96 CO2 25 -- 24 27 BUN 31* -- 29* 29* CREATININE 0.70 -- 0.50 0.40 GLUCOSE 135* -- 124* 124* CALCIUM 8.4 -- 8.3* 8.3* CANIONWB 1.11* -- -- -- MG -- < > 1.9 1.9 PHOS -- -- 3.1 -- < > = values in this interval not displayed. Corrected Calcium: 9.42 Calculated using: - Calcium: 8.3 (08/21/2025) - Albumin: 2.6 (08/20/2025) Recent Labs 08/20/25 0732 ALT 17 AST 26 ALKPHOS 156* BILITOT 0.8 Food Allergies: NKFA Diet Order: regular GI/Abdomen: distended, non-tender, last BM 08/12 Skin: stage 2 pressure injury to L ischial tuberosity per pail bailer, awaiting wound care eval Extremities: +2 BUE edema Nutrition Focused Physical Exam: Deferred per above ASSESSMENT: [x] At Risk for Malnutrition As evidenced by: Hx NSCLC (adenocarcinoma) Reported 30lb weight loss in 6 months Estimated Nutrition Needs: Calories: 8646-0716 kcal (30-35 kcal/kg) Protein: 68-85 g (1.2-1.5 g/kg) Fluids: 0847-5919 mL (30-35 mL/kg) Estimated Needs Calculated Usin.7 kg (125 lb) Estimation of previous intake: Unknown Estimation of current intake: Unknown Specifics: 74 y.o. 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 Nutrition consulted for malnutrition and 30lb weight loss in 6 months. Patient presents at risk for malnutrition as detailed above. Per chart review, patient with poor intake for the past 6months due to a low appetite. Will clarify further with full interview on follow up. Recommend oralnutrition supplements to bolster intake, will send Ensure Plus HP for patient to try. Encourage cons umption of high calorie/protein foods and small frequent meals as tolerated. While patient reports 30lb weight loss in 6 months per chart review, unable to confirm with documented weight history. Appreciate measured weights at least 3x weekly to monitor. AM labs notable for hyponatremia, ?related to fluid status. Continue to monitor lytes and address prn. Consider checking vitamin D level to confirm proper supplementation dosage. Nutrition to follow. Interventions / Recommendations: Continue with diet as ordered, encourage PO intake as tolerated Small frequent meals high in kcal/protein Oral nutrition supplements: Ensure Plus HP pending patient amenability Micronutrient recommendations: Continue multivitamin w/ minerals Consider checking vitamin D w/ same day CRP to interpret Monitor lytes, replete prn Trend weights Nutrition to continue to follow, please message or page [phone] with any questions/concerns Signed by: Cyndee Betancourt RD, LDN, CNSC 08/21/25 9:00 AM * Sangeeta Taylor MD - 08/19/2025 5:31 PM ESTAssociated Order(s): IP CONSULT TO ORTHOPEDIC SURGERY Images from the original note were not included. [facility] Consult/H&P SERVICE DATE: 08/19/2025 SERVICE TIME: 5:31 PM Attending Surgeon: Dr. Blas Resident: Sangeeta Taylor MD, MPH Patient: Mayra Craft Chief Complaint: Bilateral shoulder pain HPI: 74F RHD PMH SSS s/p dual chamber PPM in 2022, severe emphysema, NYHA Class 2-3 (EF 40%), hypothyroidism, GERD, anxiety/depression, substance use disorder, s/p R TSA conversion to hemiarthroplasty with Dr. Goins on 08/01 presenting from rehab with bilateral shoulder pain after a fall from the toilet while at rehab from 4 days ago. She was taken to [facility] at that time for initial evaluation and subsequently sent to [facility] for further evaluation. She reports bilateral upper extremity pain, denies any numbness/tingling/paresthesias. Reports her right arm has been globally edematous since surgery. Past Medical History: ???Past Medical History[1] Past Surgical History: ??Past Surgical History[2] Allergies: ??Allergies[3] ? Family History: Family History[4] Social History: Social History Tobacco Use Smoking status: Former Current packs/day: 0.00 Average packs/day: 1.5 packs/day for 54.0 years (81.0 ttl pk-yrs) Types: Cigarettes Start date: 1962 Quit date: 2017 Years since quittin.9 Smokeless tobacco: Never Substance Use Topics Alcohol use: Never Illicits: Social History Substance and Sexual Activity Drug Use Never Review of Systems: A 10+ point review of systems (constitutional, eyes, ENT, cardiovascular, respiratory, GI, , musculoskeletal, skin, neurological, psychiatric, endocrine, hematologic, allergic/immunologic) was completed and was unremarkable with the exception of those findings noted in the HPI. Physical Exam: alert, appears stated age, cooperative, and no distress Mayra T Craft is a well developed well nourished female in no apparent distress. She is of normal mood and affect. Breathing easily. Pulse is of regular rate and rhythm. Musculoskeletal exam: Right upper extremity: Skin closed, clean dry and intact RUE globally edematous Arm, forearm, and hand compartments soft and compressible No pain with passive stretch of fingers and wrist Right shoulder tender to palpation +EPL/FPL/MATTHEW (index) weakly fire, limited 2/2 pain +SILT axillary/radial/median/ulnar nerve distributions +Radial pulse??, hand WWP ? Left upper extremity: Skin closed, clean dry and intact Left arm ecchymotic from shoulder to elbow Arm, forearm, and hand compartments soft and compressible No pain with passive stretch of fingers and wrist +EPL/FPL/MATTHEW (index) fire +SILT axillary/radial/median/ulnar nerve distributions +Radial pulse??, hand WWP Results: Pertinent labs: Lab Results Component Value Date WBC 5.19 08/10/2025 RBC 3.36 (L) 08/10/2025 HGB 9.3 (L) 08/10/2025 HCT 29.8 (L) 08/10/2025 PLT 265 08/10/2025 Results from last 7 days Lab Units 08/19/25 1710 CHLORIDE mmol/L 100 INR Date Value Ref Range Status 07/23/2019 1.1 0.9 - 1.1 Final Imaging: Radiographs of the left shoulder demonstrate a transverse, impacted proximal humerus fracture. Radiographs of the right shoulder demonstrate hemiarthroplasty with chronic anterior subluxation. Assessment: Venancio // [id number] // L proximal humerus fx // ED to pending 74F RHD PMH SSS s/p dual chamber PPM in 2022, severe emphysema, NYHA Class 2-3 (EF 40%), hypothyroidism, GERD, anxiety/depression, substance use disorder, s/p R TSA conversion to hemiarthroplasty with Dr. Goins on 08/01 presenting from rehab with bilateral shoulder pain after a fall from the toilet from 4 days ago. BUE closed, NVID. RUE globally swollen, LUE with diffuse ecchymosis. Radiographs of the left shoulder demonstrate a transverse, impacted proximal humerus fracture. Radiographs ofthe right shoulder demonstrate hemiarthroplasty with chronic anterior subluxation. P: NWB RUE in sling, CCWB LUE in sling // continue post op DVT PPX, ASA81 BID // [ ] RUE U/S to r/oDVT // [ ] L shoulder non-con CT scan // [ ] OT eval This is a preliminary note. Please see Attending's addendum for final assessment and recommendations. Sangeeta Taylor MD, MPH Orthopaedic Surgery, PGY-2 [facility] Orthopaedic Residency Program [facility] West Floor Pager: [phone] [facility] East Floor Pager: [phone] Ortho Spine Floor Pager: [phone] Consult Pager: [phone] This is an initial consult note. For further follow up regarding this patient, please page the resident/fellow rounding on the patient daily, [phone] for West, or [phone] for East. [1] Past Medical History: Diagnosis Date COPD (chronic obstructive pulmonary disease) ([facility]) [2] Past Surgical History: Procedure Laterality Date lung resection , left 2017 ARTHROPLASTY REVERSE SHOULDER Right 07/11/2025 Surgeon: Harpreet Goins MD; Location: [facility]; Service: Orthopaedics; Laterality: Right; ARTHROPLASTY REVERSE SHOULDER Right 08/01/2025 Surgeon: Harpreet Goins MD; Location: [facility]; Service: Orthopaedics; Laterality: Right; CARDIAC SURGERY INSERT PACEMAKER PERMANENT JOINT REPLACEMENT KNEE ARTHROSCOPY Left around 15 years ago rectus sheath hematoma [3] Allergies Allergen Reactions Tetracyclines Hives, Rash and Unknown In mouth Hives; In mouth Substance with tetracycline structure (substance) Gabapentin Headaches and Other (See Comments) Shakes, syncope Psychological [4] No family history on file. Cosigned by Wale Jacques MD at 08/20/2025 7:50 AM EST Associated attestation - Wale Jacques MD - 08/20/2025 7:50 AM EST I saw and examined Mayra Craft (BID [id number]) on 08/20/25 and reviewed the note of Dr. Sangeeta Taylor MD. I agree with findings and plan of care as documented above. This is a 74-year-old woman with multiple medical problems and a complex history related to management of her right shoulder, who now presents after a ground- level fall with left shoulder pain, and acute on chronic exacerbation of her right shoulder pain. Regarding her right shoulder, she had had aright reverse total shoulder arthroplasty converted to hemiarthroplasty by Dr. Goins on 08/01/2025. This is chronically anteriorly subluxated. On my examination she is resting comfortably but does endorse pain in bilateral shoulders. She doeshave obvious deformity at the right shoulder with a proximal humeral hemiarthroplasty head palpableanterior to the shoulder. Her incision is well-healed and there is no erythema or drainage. The left arm, she does have swelling and ecchymosis about the left proximal humerus extending distally to th e elbow. No palpable deformity or significant pain at the elbow on my examination. She is neurovascular intact. I reviewed x-rays and CT scan of the patient. The right shoulder demonstrates a hemiarthroplasty inplace with no evidence of hardware loosening with anterior subluxation of the humeral head relativeto the glenoid remanent. The left shoulder x-rays demonstrate a proximal humerus fracture with acceptable alignment amenable to nonoperative treatment. I discussed the nature of the injury with the patient and recommended nonoperative treatment of herleft proximal humerus fracture. Her right shoulder continues to be painful and she will plan for follow-up with Dr. Goins in the near future. Regarding her left shoulder, I recommended immobilization in a sling. She can come out of the sling for gentle pendulum range of motion. She may use the left upper extremity for light activity daily living but no heavy lifting more than 5 pounds. All questions were answered and she agreed with the plan. She should return to clinic in 1 to 2 weeks for follow-up x-rays of the left shoulder. Please Note: This fracture will be treated today, at present, by myself, the dictating orthopedic surgeon at an attending level. 1) I will be stabilizing this fracture with the use of the device mentioned in the clinically relevant part of the note, not for comfort, but for the establishment of a mechanically stable environment conducive to the appropriate healing at the fracture site either by primary healing or secondary bone healing with for without the formation of callus. 2) This stabilization device will be applied today, by myself or my telecommunication tower technician. This will be done manually, with or without the use of tools for adjustment as may be required. 3) If the fracture is adjacent to a joint then the patient may initialize a course of physical therapy or occupational therapy to promote early motion and the prevention of arthrofibrosis. This physical therapy can be postponed until she is also more mobile if needed. 4) If the fracture is a lower extremity injury that requires limited weight bearing as may or may not be described in the clinically relevant section of the note, this will be achieved by the use of a supportive device such as a walker, crutch, nepalese crutch, cane or canes, roller devices or other assistive device of the patient's choice. 5) The patient will follow up with me or my colleagues in our trauma clinic in a 2-4 wk period for the purpose of reassessment, re-imaging, and continued closed treatment or consideration of alternative treatment modalities as may be required if any new clinical findings merit such change in coursefrom the present initiation of closed treatment without manipulation. ------ Wale Jacques MD, MPH Orthopaedic Trauma Surgery documented in this encounter ED Notes * Gali Grant RN - 08/19/2025 4:43 PM EST BIBA from [facility] with R shoulder pain, swelling. Recent surgery to R shoulder 07/11 after a fall.D/c'd today s/p L shoulder fx. Bilateral slings in place. Hx COPD, baseline 2L NC. * Jaciel Torres MD - 08/19/2025 4:42 PM EST [facility] EMERGENCY DEPARTMENT ED Provider Note Arrival Date: 08/19/2025 HISTORY OF PRESENT ILLNESS Mayra Craft is a 74-year-old with a history of chronic obstructive pulmonary disease, pacemaker, and recent orthopedic surgeries who presents from a rehabilitation facility with a chief complaint of shoulder pain and swelling. She underwent a right reverse total shoulder arthroplasty on 07/03/2025,which was revised to a hemiarthroplasty on 08/01/2025. She subsequently had a fall around 08/01/2025, resulting in a left shoulder fracture. She is coming from a rehabilitation facility today, where staff noted right shoulder swelling and possible displacement, prompting transfer to the emergency department. Reports four days of significant bilateral shoulder pain and right-sided rib pain, which has been present since her fall in July. Reports swelling of the left arm developed after the fall four days ago. Reports she was evaluated at [facility] for this, but no records are available. She has an open, purulent lesion on her right elbow with surrounding erythema and also reports an infection on her right foot. Denies any abdominal pain. Denies any new falls since the one four days ago. Denies fever, chills, or sweats. She is on four liters of oxygen at home via nasal cannula. EMS Report: Patient was transferred from [facility]. They noted hypotension with a blood pressure of 68/50. They reported concerns for right shoulder displacement and swelling. PHYSICAL EXAM ED Triage Vitals [08/19/25 1643] BP Heart Rate Resp Temp SpO2 (!) 79/57 89 18 97.5 ??F (36.4 ??C) (!) 91 % PE: Gen: NAD HEENT: NCAT, PERRL, EOMI, posterior phrarynx not erythematous Pulm: Tight with decreased air entry bilaterally. CV: RRR, no m/r/g, no JVD. Capillary refill less than 2 seconds. Abd: Soft, Nontender, Nondistended, no rebound or guarding : No CVAT MSK: Significant swelling and bruising of the left arm. Swelling noted around the right shoulder. Range of motion of both upper extremities is significantly limited due to pain. Strength is grossly intact in both hands. No hip pain. No lower extremity edema. Skin: Bruising on the right and left chest wall. There is an open lesion on the right elbow with surrounding erythema and purulence. Warm and dry. Neuro: Alert and following commands, moving all extremities spontaneously, sensation intact to light touch, speech fluent Psych: Normal mood/mentation MEDICAL DECISION MAKING & ED COURSE Labs COMPREHENSIVE METABOLIC PANEL - Abnormal Result Value Ref Range Sodium 130 (*) 135 - 147 mmol/L Comment: Moderately Hemolyzed Specimen, Potassium 4.5 3.5 - 5.4 mmol/L Comment: Moderately Hemolyzed Specimen, Hemolysis falsely elevates this test Chloride 96 96 - 108 mmol/L Comment: Moderately Hemolyzed Specimen, Total CO2/Bicarbonate 25 22 - 32 mmol/L Comment: Moderately Hemolyzed Specimen, Anion Gap 9 4 - 16 mmol/L BUN 31 (*) 6 - 20 mg/dL Comment: Moderately Hemolyzed Specimen, Creatinine, Blood 0.70 0.40 - 1.10 mg/dL Comment: Moderately Hemolyzed Specimen, Glucose, Blood 135 (*) 70 - 100 mg/dL Comment: Moderately Hemolyzed Specimen, Calcium 8.4 8.4 - 10.3 mg/dL Comment: Moderately Hemolyzed Specimen, Total Protein 6.5 6.4 - 8.3 g/dL Comment: Moderately Hemolyzed Specimen, Albumin, Blood 2.7 (*) 3.5 - 5.2 g/dL Comment: Moderately Hemolyzed Specimen, Globulin Result 3.8 2.0 - 4.0 g/dL AST (SGOT) 36 0 - 40 U/L Comment: Moderately Hemolyzed Specimen, Hemolysis falsely elevates this test ALT (SGPT) 18 0 - 40 U/L Comment: Moderately Hemolyzed Specimen, Alkaline Phosphatase 172 (*) 35 - 105 U/L Comment: Moderately Hemolyzed Specimen, Total Bilirubin 0.6 0.0 - 1.5 mg/dL Comment: Moderately Hemolyzed Specimen, Estimated GFR(CKD-EPI) 90 mL/min/BSA Comment: Chronic Kidney Disease Epidemiology Collaboration (CKD-EPI) 2020 Creatinine Equation BLOOD GAS FULL PANEL, VENOUS - Abnormal pH, Venous 7.46 (*) 7.35 - 7.45 pCO2, Venous 41 35 - 45 mmHg pO2, Venous 40 (*) 80 - 105 mmHg HCO3, Venous 28 21 - 30 mmol/L % O2Hb, Venous 72 (*) 95 - 99 % Base Excess, Venous 4.5 No Established Reference Range mmol/L Sodium, Whole Blood 130 (*) 135 - 147 mmol/L Potassium, Whole Blood 3.7 3.5 - 5.4 mmol/L Chloride, Whole Blood 100 96 - 108 mmol/L Lactic Acid, Venous 1.6 0.5 - 2.0 mmol/L Glucose,Whole Blood 139 (*) 70 - 105 mg/dL Ionized Calcium 1.11 (*) 1.12 - 1.32 mmol/L Hematocrit, Blood Gas 30.1 (*) 37.0 - 47.0 % Carboxyhemoglobin, VBG 1.6 (*) 0.5 - 1.5 % Methemoglobin, VBG 0.8 (*) 0.2 - 0.6 % Hemoglobin, Blood Gas 9.7 (*) 12.0 - 16.0 g/dL CBC AND DIFFERENTIAL - Abnormal WBC 11.86 (*) 4.00 - 10.00 K/uL RBC 3.33 (*) 3.90 - 5.20 M/uL Hemoglobin 9.1 (*) 11.2 - 15.7 g/dL Hematocrit 29.6 (*) 34.0 - 45.0 % MCV 89 82 - 98 fL MCH 27.3 26.0 - 32.0 pg MCHC 30.7 (*) 32.0 - 37.0 g/dL RDW 15.4 10.5 - 15.5 % RDW-SD 49.9 (*) 35.1 - 46.3 fL Platelet Count 302 150 - 400 K/uL Nucleated RBC 0 <=0 #/100 WBC Neutrophil 80.1 (*) 34.0 - 71.0 % Lymphocyte 11.7 (*) 19.0 - 53.0 % Monocyte 6.6 5.0 - 13.0 % Eosinophil 1.0 1.0 - 7.0 % Basophil 0.2 0.0 - 1.0 % Immature Granulocyte (Scammon, Myelo, Promyelocyte) 0.4 0.0 - 0.6 % Absolute Neutrophil Count 9.50 (*) 1.60 - 6.10 K/uL Absolute Lymphocyte Count 1.39 1.20 - 3.70 K/uL Absolute Monocyte Count 0.78 0.20 - 0.80 K/uL Absolute Eosinophil Count 0.12 0.04 - 0.54 K/uL Absolute Basophil Count <0.03 0.01 - 0.08 K/uL Absolute Immature Granulocyte (Scammon, Myelo, Promyelocyte) 0.05 0.00 - 0.09 K/uL C-REACTIVE PROTEIN - Abnormal C-Reactive Protein (CRP) 293.0 (*) 0.0 - 5.0 mg/L Comment: Grossly Hemolyzed Specimen, HS TROPONIN T (REFLEX 1HR, 3HR) - Abnormal Troponin T HS 29 (*) <=19 ng/L Comment: Moderately Hemolyzed Specimen, hs-cTnT<=19 ng/L in 99% of healthy individuals. hs-cTnT values of 30, 52, 100 and 1000 ng/L correspond to approximately DONNA Gen 4 of 0.01, 0.03, 0.1 and 1 ng/mL HS-TROPONIN 3 HOUR - Abnormal Troponin T HS 23 (*) <=19 ng/L Comment: hs-cTnT<=19 ng/L in 99% of healthy individuals. hs-cTnT values of 30, 52, 100 and 1000 ng/L correspond to approximately DONNA Gen 4 of 0.01, 0.03, 0.1 and 1 ng/mL MAGNESIUM - Normal Magnesium, Blood 2.1 1.6 - 2.6 mg/dL Comment: Grossly Hemolyzed Specimen, NT-PROBNP - Normal NT-ProBNP 125 0 - 624 pg/mL Comment: Reference values vary with age, sex, and renal function. At 35% prevalence, NT-proBNP values: <450 have 99% negative predictive value. >1000 have 78% positive predictive value For screening outpatients, the linotyper recommends maximizing sensitivity (and negative predictive value) by using two thresholds based on age. <125 pg/mL for patients younger than 75 <450 pg/mL for patients age 75 and older For acute dyspnea in ED patients, at 35% prevalence, study show that NTproBNP values <450 pg/mL have 99% negative predictive value for CHF >1000 pg/mL have 77% positve predictive value for CHF Grossly Hemolyzed Specimen, CULTURE, BLOOD CULTURE, BLOOD LIGHT BLUE TOP Blue Top Tube Received GOLD TOP Gold Top Tube Received DARK GREEN NA HEP TOP Na_Hep Tube Received HS-TROPONIN T, 1HR TYPE AND SCREEN ABO and Rh O POS Antibody Screen NEG TS Expiration Date 08/22/2025 23:59 BB RETYPE CBC AND DIFFERENTIAL Narrative: The following orders were created for panel order CBC and Differential. Procedure Abnormality Status --------- ------ CBC and Differential[[id number]] Abnormal Final result Please view results for these tests on the individual orders. RAINBOW DRAW Narrative: The following orders were created for panel order [place] Draw. Procedure Abnormality Status --------- ------ Blue Top[[id number]] Final result Gold Top[[id number]] Final result Dark Green Top (Na-Hep)[[id number]] Final result Please view results for these tests on the individual orders. XR Chest 1 Vw Portable XR Elbow 3+ VW Right XR Shoulder 2+ Vw Left XR Shoulder 2+ Vw Right XR Elbow 3+ VW Left US Lower Extremity Venous Left CT Angiogram Chest PE : Arteriogram CT Cervical Spine Without Contrast CT Head Without Contrast XR Shoulder 1 VW Left (Results Pending) US Upper Extremity Venous Right (Results Pending) CT Shoulder Left Without Contrast (Results Pending) MDM: Mayra Craft is a 74-year-old with a complex orthopedic and medical history presenting with bilateral shoulder pain, chest wall pain, swelling, and hypotension after a recent fall and surgery. The clinical picture is concerning for multiple concurrent issues including septic shock from a right elbow cellulitis with a possible septic joint, post-traumatic injuries including left shoulder fracture and rib fractures, and a chronic obstructive pulmonary disease exacerbation. The hypotension is concerning for sepsis, though cardiogenic shock is also a consideration given her cardiac history. Differential diagnosis includes: Sepsis/Septic Shock, likely from the right elbow skin infection, presenting with hypotension and altered mental status. Hypovolemic shock, less likely but possible. Cardiogenic shock, given her history of cardiac issues. Post-operative complications, including hardware failure/dislocation of the right shoulder prosthesis. New fractures, including the left shoulderand possible rib fractures from her fall. Pulmonary embolism, given her recent surgery and immobility, although a recent computed tomography angiogram was negative. Chronic obstructive pulmonary disease exacerbation versus pneumonia, given her tight breath sounds. The plan is for aggressive fluid resuscitation, broad-spectrum intravenous antibiotics, and pain control. We will obtain a complete blood count, comprehensive metabolic panel, lactate, blood cultures, troponin, and a venous blood gas. We will obtain imaging including computed tomography scans of the chest, to evaluate for sources of pain and infection, as well as X-rays of the bilateral shoulders. Orthopedics will be consulted for evaluation of her complex shoulder injuries and possible septic joint.A breathing treatment with albuterol will be administered for her respiratory distress. Outcome: Orthopedics was consulted for evaluation. Labs: Complete blood count showed leukocytosis of 11.86 and anemia with hemoglobin of 9.1. Comprehensive metabolic panel was notable for hypernatremia, with creatinine of 0.7. C-reactive protein was elevated at 293. Troponins were flat. Venous blood gas showed alkalosis. Imaging: Left shoulder X-ray showed a comminuted and impacted left proximal humerus fracture. Computed tomography of the chest, abdomen, and pelvis showed bilateral lower lobe opacitiessuggestive of pneumonia, and was negative for pulmonary embolism. 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 Reevaluation: Remains alert and oriented. Oxygen administered at four liters via nasal cannula. Disposition: Admission to the hospital is imminent for management of multifactorial issues including pneumonia, orthopedic injuries, and possible sepsis. At this time patient was signed out to oncoming physicians with the shoulder computed tomography and upper extremity ultrasound pending and final ortho recs pending. Consent for the use of AI-assisted tools for documentation was obtained from the patient and all other participants in the visit prior to this encounter. All questions were answered. Patient understands that they may decline the use of AI-assisted tools. Barb Coma Scale Flowsheet Row Most Recent Value Eye Opening 4 Filed 08/19/2025 171 Best Verbal Response 5 Filed 08/19/2025 1715 Best Motor Response 6 Filed 08/19/2025 1715 Barb Coma Scale Score 15 Filed 08/19/2025 1715 Emergency Department Course: ED Course as of 08/19/25 2354 Sun Aug 19, [id number] CTA chest: IMPRESSION: 1. No pulmonary embolism or acute aortic pathology. 2. Severe emphysema with mild dilatation of the pulmonary artery measuring up to 3.1 cm, unchanged, which can be seen with pulmonary arterial hypertension. 3. Mild dilatation of the ascending and descending thoracic aorta, unchanged. See recommendations below. 4. Heterogeneous consolidative opacities in both lower lobes may reflect pneumonia. 5. Acute, comminuted left proximal humeral fracture. 6. Status post reverse right shoulder arthroplasty with anterior subluxation/dislocation of the humeral component relative to the glenoid. 7. Chronic compression deformities of T1 and T11 vertebral bodies. [MC] ED Course User Index [MC] Shelley Roblero MD Clinical Impression Acute pain of left shoulder Christopher Lites, MD Resident 08/19/25 [id number] * Daniel Romero MD - 08/19/2025 4:42 PM EST Received patient in signout. Patient with left shoulder fracture. CT consistent with prior injury. Given multiple doses of pain meds with improvement in symptoms. Patient also septic and being treated with antibiotics. Plan for admission to medicine. Ortho agrees for admission to medicine given medical complexity. Patient having difficulty tolerating right upper extremity ultrasound due to pain. Given additional pain medications. At signout patient pending ultrasound, final orthopedics recommendations and admission to medicine. Daniel Romero MD Resident 08/20/25 8024 documented in this encounter Miscellaneous Notes * Wound Ostomy Note - Mateusz Remy RN - 09/10/2025 3:57 PM EST Images from the original note were not included. Wound Care Follow-up Date of Service: 09/10/2025 Patient: Mayra Craft : 1950 CSN: [id number] Location: [address] [facility] Admit Date: 08/19/2025 Admission Diagnosis: Principal Problem: Closed comminuted fracture of left humerus, initial encounter Active Problems: Chronic obstructive pulmonary disease (CMS-HCC) Acute on chronic hypoxic respiratory failure (CMS-HCC) Chronic HFrEF (heart failure with reduced ejection fraction) (CMS-[facility]) Acute deep vein thrombosis (DVT) of axillary vein of right upper extremity (CMS-HCC) Moderate malnutrition Chronic hypoxic respiratory failure ([facility]) Myelopathy ([facility]) Reason for Consult: Follow- up evaluation of wounds, requested by patient History: Past Medical History[1] Allergies: Allergies[2] Nutrition: Active Orders Diet Diet Regular Frequency: Effective Now Number of Occurrences: Until Specified Active Orders Nourishments Nutrition supplements Ensure High Protein Plus Chocolate; Breakfast, Lunch, and Dinner: Until Discontinued Frequency: Until Discontinued Start Date/Time: 08/29/25 1540 Number of Occurrences: Until Specified Order Comments: Whatever preference pt has Order Questions: Select Supplements: Ensure High Protein Plus Chocolate Supplement Frequency Breakfast, Lunch, and Dinner Pertinent Labs: 09/10/2025: WBC 4.45 H/H 8.6/28.7 PLT 220 Glucose 94 Troponin T HS 20 Zinc 51 Hieu Score: Hieu Scale Score: 14 Subscale risk factors placing patient at increase pressure injury risk from intense or prolonged pressure: Sensory Perception Yes Activity Yes Mobility Yes *Redistribution of pressure is the focus for the risk factors above. Subscale risk factors placing patient at increase pressure injury risk by decreasing tissue tolerance: Moisture Yes Friction and Shear Yes Nutrition Yes *Skin protection, positioning, and optimal nutrition is the focus for risk factors above. Risk Factors: Pre admission factors contributing to impaired skin integrity include: Septic arthritis L shoulder Opioid use disorder SSS s/p dcICD HFrEF 40% COPD, severe emphysema, O2 dependence 4L NSCLC s/p L lung surgery 2017 S/p fall at SNF 08/17 Hospital Conditions Contributing to Impaired Skin Integrity: Pain Impaired mobility Opioid use disorder in sustained remission O2 dependence COPD Impaired nutrition NSCLC General Summary: Patient Mayra is seen resting on 12 JENNA lassiter at bedside for visit. Visit today requested by patient for evaluation of skin impairments. Patient also planned for d/c to rehab today, updating orders. R elbow continues to deteriorate, now covered in adherent slough. Wound bed slightly smaller. L elbow healed R 2nd toe remains the same, DESTINEE with betadine. Wound Assessment: Location: R elbow Present on Admission Yes Pressure Injury No Type/Etiology: traumatic wound 2/2 fall prior to admission Concern for infection: increasing wound bed Location: R 2nd toe Present on Admission Yes Pressure Injury No Type/Etiology: prior infection Wound Infection Toe (Comment) Anterior;Right (Active) No Date First Assessed or Time First Assessed found. Present on Original Admission: Yes Primary Wound Type: Infection Location: Toe (Comment) Wound Orientation: (c) Anterior;Right Wound Description (Comments): On PO Bactrim Assessments 09/10/2025 2:30 PM Assessment Completed By Inpatient Wound Nurse Wound Image Wound Length (cm) 0.3 cm Wound Width (cm) 0.2 cm Wound Depth (cm) 0.1 cm Wound Surface Area (cm^2) 0.05 cm^2 Wound Volume (cm^3) 0.003 cm^3 Wound Bed Site Assessment Clean;Dry;Intact Structure Exposed None (limited to skin breakdown) Margins Defined edges;Attached edges Foul Odor No Lynette-Wound Assessment Clean;Dry;Intact Treatments Cleansed Wound Bed Prep Wound cleanser Wound Closure None Primary Dressings Povidone iodine Cover Dressings Open to air Dressing Action Changed Dressing Complexity Routine Dressing Status Clean;Dry;Intact Wound 08/08/25 Other (Comment) Elbow Posterior;Left (Active) Date First Assessed/Time First Assessed: 08/08/25 0140 Primary Wound Type: (c) Other (Comment) Location: Elbow Wound Orientation: Posterior;Left Assessments 09/10/2025 2:30 PM Assessment Completed By Inpatient Wound Nurse Wound Length (cm) 0 cm Wound Width (cm) 0 cm Wound Depth (cm) 0 cm Wound Surface Area (cm^2) 0 cm^2 Wound Volume (cm^3) 0 cm^3 Wound Bed Site Assessment Clean;Dry;Intact Structure Exposed None (limited to skin breakdown) Margins Attached edges Drainage Amount None Foul Odor No Lynette-Wound Assessment Clean;Dry;Intact Treatments Cleansed Wound Bed Prep Wound cleanser Wound Closure None Cover Dressings Open to air No associated orders. Wound Traumatic Elbow Right (Active) No Date First Assessed or Time First Assessed found. Present on Original Admission: Yes Primary Wound Type: Traumatic Location: Elbow Wound Orientation: Right Assessments 09/10/2025 2:30 PM Assessment Completed By Inpatient Wound Nurse Wound Image Non-staged Wound Description Unclassifiable (eschar covered) Wound Length (cm) 2.1 cm Wound Width (cm) 1.8 cm Wound Depth (cm) 0.2 cm Wound Surface Area (cm^2) 2.97 cm^2 Wound Volume (cm^3) 0.396 cm^3 Decrease in Wound Size % -1423.08 Wound Bed Site Assessment Fragile;[place];Slough Wound Bed Slough (%) 75 % Structure Exposed None (limited to skin breakdown) Margins Defined edges;Distinct Drainage Description Serous Drainage Amount Moderate Foul Odor No Lynette-Wound Assessment Clean;Dry;Intact;Edema;Fragile Treatments Cleansed Wound Bed Prep Wound cleanser Wound Closure None Primary Dressings Silver hydrofiber Cover Dressings ABD pad;Gauze roll Dressing Action Changed Dressing Complexity Routine Dressing Status Clean;Dry;Intact No associated orders. Wound Progress: R elbow: lesly, however now covered in slough. Urine management recommendation from wound care perspective: Indwelling coude catheter managed by primary team Goals of wound care: Moisture management Incontinence care Topical therapy Pressure redistribution, offloading Wound Plan/Recommendations: Pressure relief per pressure injury guidelines Support surface: Low Air Loss Mattress If patient is on a SW alternate support surface, please check bed setting each shift. Should be on alternate. -Do not use a fitted sheet if patient in on a SW Alternate support surface -Turn and reposition every 1-2 hours and as needed to offload affected area. -To prevent friction/shearing injuries, use ceiling lift to reposition. No boosting. Avoid shearinginjuries over the coccyx area, never boost patient in bed, use ceiling lift. -Heels off bed surface at all times so that heel(s) are free floating and not touching the bed surface Float Heels On Pillows -If OOB, limit sit time to one hour at a time and Sit on a pressure redistribution cushion- ROHO -Obtain from PT -Elevate LE's while sitting. -Moisturize B/L LE's and feet, intact skin only with Moisturizer (Dark Purple Top) BID. Topical therapy: R elbow -Commercial wound cleanser or normal saline to cleanse wounds. -Pat the tissue dry with dry gauze. -pack wound with [employer] ag rope (WD #[id number]) lightly moistened with wound cleanser spray, ensureto fill wound fully. -Cover with ABD pad and secure with kerlix wrap -Change dressing daily or as needed if soiled Topical therapy: R 2nd toe -Commercial wound cleanser or normal saline to cleanse wounds. -Pat the tissue dry with dry gauze. -[place] wound wth betadine daily, ok to remain DESTINEE Is patient in agreement with the wound care plan? Yes -Notify MD or wound care nurse if wound or skin deteriorates. -Discharge Planning: plan for d/c to rehab today 09/10 Wound care will Follow Signed by: Mateusz Remy RN BSN CWOCN [1] Past Medical History: Diagnosis Date COPD (chronic obstructive pulmonary disease) ([facility]) [2] Allergies Allergen Reactions Tetracyclines Hives, Rash and Unknown In mouth Hives; In mouth Substance with tetracycline structure (substance) Gabapentin Headaches and Other (See Comments) Shakes, syncope Psychological * Liaison Communication - Jorge Piña MD - 09/04/2025 4:42 PM EST Notified has bed for Rehab today. Pulled CVL in PM in preparation for discharge, shortly thereafter, notified facility cannot take overnight. Okay for no PIV overnight. Jorge Piña MD * Wound Ostomy Note - Mateusz Remy RN - 08/30/2025 9:18 AM EST Images from the original note were not included. Wound Care Follow-up Date of Service: 08/30/2025 Patient: Mayra Craft : 1950 CSN: [id number] Location: [address] Room/Bed: [address] [place] [address] Admit Date: 08/19/2025 Admission Diagnosis: Principal Problem: Closed comminuted fracture of left humerus, initial encounter Active Problems: Chronic obstructive pulmonary disease (CMS-HCC) Acute on chronic hypoxic respiratory failure (CMS-HCC) Chronic HFrEF (heart failure with reduced ejection fraction) ([facility]) Acute deep vein thrombosis (DVT) of axillary vein of right upper extremity (CMS-HCC) Moderate malnutrition Reason for Consult: Follow- up evaluation of skin impairments History: Past Medical History[1] Allergies: Allergies[2] Nutrition: Active Orders Diet Diet Regular Frequency: Effective Now Number of Occurrences: Until Specified Active Orders Nourishments Nutrition supplements Ensure High Protein Plus Chocolate; Breakfast, Lunch, and Dinner: Until Discontinued Frequency: Until Discontinued Start Date/Time: 08/29/25 1540 Number of Occurrences: Until Specified Order Comments: Whatever preference pt has Order Questions: Select Supplements: Ensure High Protein Plus Chocolate Supplement Frequency Breakfast, Lunch, and Dinner Pertinent Labs: 08/30/2025: WBC 5.80 H/H 7.6/24.4 PLT 261 Glucose 132 CRP 113 Hieu Score: Hieu Scale Score: 14 Subscale risk factors placing patient at increase pressure injury risk from intense or prolonged pressure: Sensory Perception Yes Activity Yes Mobility Yes *Redistribution of pressure is the focus for the risk factors above. Subscale risk factors placing patient at increase pressure injury risk by decreasing tissue tolerance: Moisture Yes Friction and Shear Yes Nutrition Yes *Skin protection, positioning, and optimal nutrition is the focus for risk factors above. Risk Factors: Pre admission factors contributing to impaired skin integrity include: Septic arthritis L shoulder Opioid use disorder SSS s/p dcICD HFrEF 40% COPD, severe emphysema, O2 dependence 4L NSCLC s/p L lung surgery 2017 S/p fall at SNF 08/17 Hospital Conditions Contributing to Impaired Skin Integrity: Pain Impaired mobility Opioid use disorder in sustained remission O2 dependence COPD Impaired nutrition NSCLC General Summary: Patient Mayra is seen resting comfortably in bed on JENNA lassiter at bedside for visit. Visit today to evaluate skin impairments. Noted that patient had fall 08/17 prior to admission. Reports very difficult mobility of BUE, with elbows resting down on bed frequently. Now R elbow with larger wound bed and increased breakdown Wound Assessment: Location: R elbow Present on Admission Yes Pressure Injury No Type/Etiology: traumatic wound 2/2 fall prior to admission Concern for infection: increasing wound bed Location: L elbow Present on Admission Yes Pressure Injury No Type/Etiology: traumatic wound 2/2 fall prior to admission Location: R 2nd toe Present on Admission Yes Pressure Injury No Type/Etiology: prior infection Wound Infection Toe (Comment) Anterior;Right (Active) No Date First Assessed or Time First Assessed found. Present on Original Admission: Yes Primary Wound Type: Infection Location: Toe (Comment) Wound Orientation: (c) Anterior;Right Wound Description (Comments): On PO Bactrim Assessments 08/30/2025 10:00 AM Assessment Completed By Inpatient Wound Nurse Wound Image Wound Length (cm) 0.3 cm Wound Width (cm) 0.2 cm Wound Depth (cm) 0.1 cm Wound Surface Area (cm^2) 0.05 cm^2 Wound Volume (cm^3) 0.003 cm^3 Wound Bed Site Assessment Fragile;Dry;Clean Structure Exposed None (limited to skin breakdown) Margins Defined edges;Attached edges Foul Odor No Lynette-Wound Assessment Clean;Dry;Intact Treatments Cleansed Wound Bed Prep Wound cleanser Wound Closure None Primary Dressings Povidone iodine Cover Dressings Open to air Wound 08/08/25 Other (Comment) Elbow Posterior;Left (Active) Date First Assessed/Time First Assessed: 08/08/25 0140 Primary Wound Type: (c) Other (Comment) Location: Elbow Wound Orientation: Posterior;Left Assessments 08/30/2025 10:00 AM Assessment Completed By Inpatient Wound Nurse Wound Image Wound Length (cm) 0.5 cm Wound Width (cm) 0.5 cm Wound Depth (cm) 0.1 cm Wound Surface Area (cm^2) 0.2 cm^2 Wound Volume (cm^3) 0.013 cm^3 Wound Bed Site Assessment Fragile;[place];Drainage;Edema;Painful Structure Exposed None (limited to skin breakdown) Margins Attached edges Drainage Description Serous Drainage Amount Large Foul Odor No Lynette-Wound Assessment Clean;Dry;Intact;Edema;Ecchymosis Treatments Cleansed Wound Bed Prep Wound cleanser Wound Closure None Primary Dressings Xeroform Cover Dressings ABD pad;Gauze roll Dressing Action Changed Dressing Complexity Routine Dressing Status Clean;Dry;Intact No associated orders. Wound Traumatic Elbow Right (Active) No Date First Assessed or Time First Assessed found. Present on Original Admission: Yes Primary Wound Type: Traumatic Location: Elbow Wound Orientation: Right Assessments 08/30/2025 10:00 AM Assessment Completed By Inpatient Wound Nurse Wound Image Non-staged Wound Description Full thickness without exposed support structure Wound Length (cm) 2 cm Wound Width (cm) 2 cm Wound Depth (cm) 0.2 cm Wound Surface Area (cm^2) 3.14 cm^2 Wound Volume (cm^3) 0.419 cm^3 Decrease in Wound Size % -1511.54 Wound Bed Site Assessment Fragile;[place];Pale;Painful;Drainage Wound Bed Slough (%) 0 % Structure Exposed None (limited to skin breakdown) Margins Defined edges;Unattached edges Drainage Description Serous Drainage Amount Moderate Foul Odor No Lynette-Wound Assessment Clean;Dry;Fragile;Edema;Painful Treatments Cleansed Wound Bed Prep Wound cleanser Wound Closure None Primary Dressings Xeroform Cover Dressings ABD pad;Gauze roll Dressing Action Changed Dressing Complexity Routine Dressing Status Clean;Dry;Intact No associated orders. Wound Progress: All wounds progressing. R elbow increased in size. Urine management recommendation from wound care perspective: Use an external urinary catheter to reduce/prevent wound contamination and facilitate wound healing Goals of wound care: Moisture management Topical therapy Support surface Wound Plan/Recommendations: Pressure relief per pressure injury guidelines Support surface: SW Alternate Low Air Loss If patient is on a SW alternate support surface, please check bed setting each shift. Should be on alternate. -Do not use a fitted sheet if patient in on a SW Alternate support surface -Turn and reposition every 1-2 hours and as needed to offload affected area. -To prevent friction/shearing injuries, use ceiling lift to reposition. No boosting. Avoid shearinginjuries over the coccyx area, never boost patient in bed, use ceiling lift. -Heels off bed surface at all times so that heel(s) are free floating and not touching the bed surface Float Heels On Pillows -If OOB, limit sit time to one hour at a time and Sit on a pressure redistribution cushion- Standard Air -Elevate LE's while sitting. -Moisturize B/L LE's and feet, intact skin only with Moisturizer (Dark Purple Top) BID. Wound Care Recommendations: Bilateral Elbows: -Commercial wound cleanser or normal saline to cleanse wounds. -Pat the tissue dry with dry gauze. -Apply cut to fit single layer of Xeroform to wound -Cover with 4x4 Mepilex, change Q 2 days Right 2nd digit -Commercial wound cleanser or normal saline to cleanse wounds. -Pat the tissue dry with dry gauze. -Apply Betadine daily Is patient in agreement with the wound care plan? Yes -Notify MD or wound care nurse if wound or skin deteriorates. -Discharge Planning: Wound care will Follow Signed by: Mateusz Remy RN BSN CWOCN [1] Past Medical History: Diagnosis Date COPD (chronic obstructive pulmonary disease) ([facility]) [2] Allergies Allergen Reactions Tetracyclines Hives, Rash and Unknown In mouth Hives; In mouth Substance with tetracycline structure (substance) Gabapentin Headaches and Other (See Comments) Shakes, syncope Psychological * Op Note - Sammi Mckeon MD - 08/27/2025 12:30 PM EST INTERVENTIONAL RADIOLOGY OPERATIVE NOTE Procedure(s): Temporary central venous catheter placement Dollyman(s): Sammi Mckeon MD Pre-operative Diagnosis: Need for venous access Post-operative Diagnosis: Same Description: Temporary central venous catheter placement EBL: minimal Anesthesia: Local only Specimens: none Findings: Patent right internal jugular vein. Successful placement of a right internal jugular vein approach 7 Fr 16 cm temporary central venous catheter, with tip terminating in the distal SVC. Temp CVC is ready for use. Plan: [place] [phone] for ANY questions or concerns. * IV Therapy Notes - Sarah Sandoval RN - 08/26/2025 12:47 AM EST Paged to bedside for iv placement, patient has severe swelling of both arms, fractured left humerus, and dvt right axillary vein. Patient will need alternative access plan at this time, paged covering MD Marianne Rose, awaiting call back at this time to discuss iv access options, RN is aware. * Plan of Care - Raul Ortiz RN - 08/24/2025 6:52 AM EST A/ox4 Assist with 2 for transfer Vss, afebrile, O2 at 4 L to maintain saturations Obtained guaifenesin orders for increased productive coughs Continue on prn neb tx and pain managed on SATURATION DIVER morphine Continue on IV abx for PNA. Prn ativan x1 for increased anxiety Hep gtt at 18 units on 2nd therapeutic assay, now on daily draws Bladder scan for 550 mls and straight cath for 600 mls Continue to monitor and support Problem: Skin/Tissue Integrity - Adult Goal: Skin integrity remains intact Outcome: Progressing Goal: Incisions, wounds, or drain sites healing without S/S of infection Outcome: Progressing Goal: Oral mucous membranes remain intact Outcome: Progressing Problem: Respiratory - Adult Goal: Achieves optimal ventilation and oxygenation Outcome: Progressing Problem: Cardiovascular - Adult Goal: Maintains optimal cardiac output and hemodynamic stability Outcome: Progressing Goal: Absence of cardiac dysrhythmias or at baseline Outcome: Progressing Problem: Gastrointestinal - Adult Goal: Minimal or absence of nausea and vomiting Outcome: Progressing Goal: Maintains or returns to baseline bowel function Outcome: Progressing Goal: Maintains adequate nutritional intake Outcome: Progressing Problem: Chronic Conditions and Co-morbidities Goal: Patient's chronic conditions and co-morbidity symptoms are monitored and maintained or improved Outcome: Progressing Problem: Knowledge Deficit Goal: Patient/family/caregiver demonstrates understanding of disease process, treatment plan, medications, and discharge instructions Outcome: Progressing * Significant Event - Tommy Jones RN - 08/23/2025 5:15 PM EST Afternoon vitals taken. Her BP came back as 79/58, other vitals were stable. Manual BP was 82/44. Patient reported feeling lightheaded. Rapid response called MD and Stat nurse were at bedside. Labs were drawn and per order a 500cc bolus of LR was given. Post bolus BP improved to 90s/60s. Patient was repositioned and states feeling better. Will continue to monitor BP and for symptoms of hypotension. * Significant Event - Madeleine Rivas MD - 08/23/2025 12:34 AM EST Event Note: Date of Service: 08/23/2025 Patient: Mayra Craft : 1950 CSN: [id number] Location: [place] [address] med Room/Bed: 1266S/1266-2 Advanced Care Planning: Full Code. Time of activation: 12:20AM Assessment/Plan Mayra Craft is a 74 y.o. 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 (on suboxone), SSS s/p dcICD, HFrEF (ef 40%) 2/2 niCM, moderate MR, NSVT with 10% PVC burden, non-obstructive CAD (CTA 2021), COPD with severe emphysema and 4L O2 dependence, NSCLC (adenocarcinoma) s/p left lung surgery 2016, chronic R rotator cuff arthropathy s/p R total shoulder arthroplasty 07/11/25 then conversion to R shoulder hemiarthroplasty with glenoid and humeral implant on 08/01/25w/recent hospitalization 08/01-08/10 due to SOB w/CHF vs COPDE/PNA mucoid impaction, dced to SNF presented on 08/19 found to have L humeral Fx and RUE DVT triggered for dyspnea and worsening acute hypo xic respiratory failure with repositioning, possibly related to de-recruitment of alveoli. Has beencoughing, maybe at risk of aspiration, will eval for aspiration or PNA, currently appears relatively euvolemic on exam however will eval for pulmonary edema as well iso hx HFrEF. Plan: - EKG NSR with PAC, no YUVAL, no signs of acute ischemia on my read, similar to prior - STAT CXR ordered - CBC, BMP, troponin, ntproBNP ordered - Nebulizer, pulmonary regimen - Goal O2 sat: 88-92% Patient reports breathing fast, feeling some SOB and chest tightness, no pain. Patient was seen forsimilar chest tightness 1-2 nights ago as well. Per RN, she was being repoitioned and then began desatting to around [address] on 10L fask mask and subsequently satting 92%. Wears 4L NC at home. Patient has been coughing a little with slight sputum production. No clear aspiration event. Notcomplaining of abdominal pain currently but states she feels overwhelmed. Patient weaned to 6L NC and satting in low 90's currently. Vital signs in last 24 hours Temp Min: 97.1 ??F (36.2 ??C) Max: 98 ??F (36.7 ??C) BP Min: 91/60 Max: 154/80 Pulse Min: 68 Max: 91 Resp Min: 16 Max: 23 SpO2: (P) 94 % O2 Flow Rate (L/min): (P) 3 L/min O2 Device: (P) Nasal cannula Last BM Date: 08/22/25 Actual Weight: 58.6 kg (129 lb 1.6 oz) BMI (Calculated): 19 Intake/Output Summary (Last 24 hours) at 08/23/2025 0034 Last data filed at 08/22/2025 2200 Gross per 24 hour Intake 234 ml Output -- Net 234 ml Relevant Physical Exam: Thin chronically ill appearing female, sitting up in bed No rales, rhonchi, wheezes, slightly decreased breath sounds in bases b/l, increased WOB and using abdominal muscles RRR, no r/m/g No edema in LE b/l I reviewed current medications. Scheduled Medications[1] Infusions Meds[2] PRN Medications[3] Labs, Imaging & Other Studies which resulted at the time of signing this note were reviewed. Notable findings include: Pending Madeleine Rivas MD [facility] I spent 40 minutes providing critical care services in this encounter. This event represented an imminent, life-threatening deterioration in the patient's condition that required continuous assessment and intervention. I performed critical care services both at the bedside and while being immediately available on the medical unit. These services included direct patient care, vital sign monitoring, review of the medical history, laboratory, radiologic, and electrocardiographic data, as appropriate, discussion of the care plan with other healthcare providers, and documenting in the medical record. [1] ascorbic acid, 500 mg, Oral, Daily atorvaSTATin, 20 mg, Oral, Nightly buprenorphine-naloxone, 0.5 Film, Sublingual, Daily calcium carbonate, 500 mg, Oral, Daily cholecalciferol, 1,000 Units, Oral, Daily cycloSPORINE, 1 drop, Both Eyes, BID ferrous sulfate, 325 mg, Oral, Daily with breakfast furosemide, 20 mg, Oral, Once per day on Wednesday levothyroxine, 50 mcg, Oral, Daily (0600) ryulzq-dvziodql-yzxaveh (pork), 48,000 units of lipase, Oral, TID with meals metoprolol tartrate, 12.5 mg, Oral, BID mometasone-formoterol, 2 puff, Inhalation, BID multivitamin with minerals tablet, 1 tablet, Oral, Daily omeprazole, 20 mg, Oral, Daily (0600) PARoxetine, 20 mg, Oral, QAM sodium chloride, 3 mL, Intravenous, Q12H KALEY polyethylene glycol, 17 g, Oral, BID sacubitriL-valsartan, 0.5 tablet, Oral, BID sennosides, 17.2 mg, Oral, BID tiotropium bromide, 2 puff, Inhalation, Daily RT [2] heparin, 0-42 Units/kg/hr (Dosing Weight), Last Rate: 16 Units/kg/hr (08/22/25 1525) morphine (PF) in 0.9 % sodium chloride, [3] acetaminophen benzocaine-menthoL bisacodyl calcium carbonate heparin AND heparin ipratropium-albuteroL LORazepam Insert and Maintain Peripheral IV AND sodium chloride AND sodium chloride simethicone * Op Note - Adarsh Little MD - 08/22/2025 9:00 AM EST Interventional Radiology Post Procedure Note Patient: Mayra Craft : 1950 Pre procedure diagnosis: No associated diagnoses for current labs Post procedure: No associated diagnoses for current labs Procedure performed: Us guided right shoulder aspiration Procedure date: 08/22/2025 Dollyman: Adarsh Little Additional Dollyman (If Applicable):Dr Duran Sedation used: Moderate Sedation, see MAR for medications used. Anesthesia: Patient anesthesia was not required. Findings: No significant amount of right shoulder fluid. Complications: None unless otherwise specified. EBL: Minimal. Specimens Collected: Microbiology Drains/Device Implanted: N/A Plan/Disposition: Inpatient * Hospital Course - Katy Watson MD - 08/21/2025 5:19 PM EST TRANSITIONAL ISSUES Primary Care/Rehab Transitional Issues: Patient was discharged on the following pain regimen as outline in discharge summary/medication reconcilliation. Please wean opiates as possible once acute pain resolved. Failed a Trial of void in house on 08/30, likely multifactorial in setting of pain, opiates, and mobility. Urology referral for TOV She has follow up with Orthopedics on 09/11. Please continue to wrap Left upper extremity for compression. Activity restrictions: can come out of the sling for gentle pendulum range of motion. She may use the left upper extremity for light activity daily living but no heavy lifting more than 5 pounds (coffee cup weight bearing) On Apixaban for DVT treatment, should be treated for at least 3 months (circa 11/23/2024). Holding ASA until that time (indication non-obstructive Coronary artery disease) Should see endocrinology for ongoing care of osteoporosis Repeat CT chest in 3 months for pulmonary nodules Repeat CT in 12 months Thoracic aorta 4.0 - 4.4 cm in diameter Incidental Findings: [] Multilevel degenerative changes causing up to mild spinal canal stenosis most notable from C4-C5 through C6-C7 [] Chronic appearing T1 compression fracture with approximately 70% height loss without retropulsion. [] Few nodular opacity in left upper lung. These findings are better evaluated in recent CT pulmonary angiography. If clinically indicated consider CT chest follow-up in 3 months [] Thoracic aorta 4.0 - 4.4 cm in diameter - if stable findings at 12 months or interval increase in diameter is < 3 mm, consider follow-up with ECG-gated chest CTA in 2 years. Ortho Please follow up with radiographs. HOSPITAL COURSE SUMMARY Mayra Craft is a 74 y.o. 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 recent hospitalization 08/01-08/10 with shortness of breath felt combo of slight congestive heart failure exacerbation and COPDE/PNA mucoid impaction, dced to SNF presented with worsening b/l shoulde r pain after fall at SNF 4 days ago found to have Left humeral Fracture and Right upper extremity Deep vein thrombosis. S/p IR aspiration of right shoulder (08/22 9 am) to rule out septic arthritis, with cultures negative to date. Chronic pain was consulted for aid in pain management and ultimatelypt was discharged on mutli-modal pain control with assistance from pain service. Functional status was significantly impaired due to bilateral upper extremity injuries, pain, and deconditioning, necessitating maximal assistance with ADLs and mobility; discharge planning focused on transfer to a rehabilitation facility for ongoing care and therapy. PROBLEM LIST # Pain control # History of Opioid Use Disorder, on suboxone Pt with a history of opioid use disorder in setting of opioids for pancreatitis, recently started on suboxone (May). Requiring high amounts of opioids in this setting given her humerus fractureand post-R shoulder hemiarthroplasty. Chronic pain was consulted and aided in adjusting pain regimen. Initially required Morphine SATURATION DIVER; however, was weaned to oral pain medications. She was dischargedon the following pain regimen: - 8-2 mg dose suboxone TID - Lyrica 100 mg BID - Oxycodone 15 mg PO Q4H PRN - Methocarbamol 500 mg QID - Acetaminophen 1g 4 times daily PRN. # Left proximal humerus comminuted transverse fracture s/p fall # Significant LUE edema Patient with a mechanical fall after misjudging where the toilet seat is and falling onto her Left shoulder while at SNF. Given persistent pain, presented to the ED. CT scan of Left humerus showed acceptable alignment amenable to non- operative treatment with immobilization in a sling; however, pt unable to tolerate sling consistently with continued pain. Repeat LUE XR with interval callus formation and no new dislocation or fracture. Ortho followed and recommended follow-up in 1 week post discharge with Xray. - Pain control as above. - Activity restrictions: can come out of the sling for gentle pendulum range of motion. She may usethe left upper extremity for light activity daily living but no heavy lifting more than 5 pounds (coffee cup weight bearing) # Concern for Right Wrist Drop Patient with Right wrist pain and difficulty with voluntary extension. Ortho examined on 08/28 and not concerned about septic wrist, but are concerned for possible nerve impingement. Neurology initially recommended MRI right brachial plexus, but after discussion with Neurology + Radiology, there will be significant artifact owing her her Right shoulder prosthesis and her Left sided PPM to the point of a non-diagnostic study. She did undergo a C-spine MRI that was overall not concerning for acute process. An outpatient neurology appointment can be pursued with considerations of EMG at that time. - 08/28 Right humerus XR with osteopenia but no fracture. - Neurology Outpatient follow up. # Right shoulder swelling/pain, c/f R shoulder septic arthritis # Chronic R rotator cuff arthropathy s/p R total shoulder arthroplasty 07/11/25, conversion to Right shoulder hemiarthroplasty with glenoid and humeral implant on 08/01/25 # Chronic right shoulder dislocation Patient with increased Right shoulder pain and swelling post-surgery on 08/01 w/concern for possible septic joint w/CRP of 293. Initially given antibiotics, but d/c'ed for IR procedure on 08/20 to increase yield of IR tap on 08/22. Joint cultures NGTD. X ray showing chronic anterior dislocation of the humeral head relative to the glenoid, ortho reviewed and no acute intervention required, and willfollow-up OP (Dr. Goins). Pain was controlled as above. # Acute on chronic hypoxic respiratory failure (baseline 4L NC) # Hospital Acquire Pneumonia # Consolidative opacities in both lower lobes (from CT chest 08/19) # COPD without exacerbation Patient with noted consolidative opacities in both lower lobes from CT chest, initially w/o respiratory symptoms and baseline 4L NC. However, pt developed increased O2 requirements overnight, likely positional or 2/2 mucoid impaction; however, CXR still with evidence of PNA. Given pt was at rehab prior to current admission, treated recently for PNA with bactrim (08/01-08/10), and significant underlying lung disease will plan to treat for HAP. On 08/25, pt lost IV access and her IV antibiotics were transitioned to PO linezolid + levofloxacin. Overall, given pt's clinical stability very low concern for true MRSA HAP despite + MRSA swab, thus will plan to complete course of HAP coverage with Le vofloxacin, which was completed on 08/29. Repeat XR on 08/28 with stable to improved disease. Home inhalers continued. # Urinary retention Patient with urinary retention this admission. Multifactorial, likely some underlying pelvic floor dysfunction (was having trouble urinating prior to this hospitalization) + constipation from opioid use/decreased hydration + immobility. UA w/o evidence of infection. [place] was placed overnight between 08/25 - 08/26. Trial of void was attempted with continued retention. She will need to follow up with Urology outpatient for TOV. # Moderate hyponatremia, resolved Paitent with Na of 125 08/25. Overall most concerned for hypovolemic hyponatremia vs tea and toast given pt unable to feed herself consistently. Of note, patient also getting vancomycin in Dextrose which could be contributing. Last diuretic dose on 08/22. Urine studies consistent with ADH being on given Urine osms > 200. Urine Na is > 20, FeUrea < 55%. With IVF trial, Na increased, consistent with likely low EABV though if pt does have SIADH it is likely in setting of uncontrolled pain. # Access Patient with very difficult upper extremity access this admission given Right upper extremity DVT +Left humerus proximal fracture and resulting edema. Given need for SATURATION DIVER + other intermittent IV medication needs, including electrolyte repletion + frequent lab draws, temporary central line placed on08/27 as PICC/midline are not options. It was removed on discharge. # New Right axillary vein Deep vein thrombosis Patient with worsening R arm pain post-fall on L shoulder, w/increased swelling over right shoulderand lower arm. She was found on admission to have a new R axillary vein DVT. Hep gtt started 08/20. Switched to apixaban on 08/25 after confirmation of no further procedures. - Apixaban 5mg BID started on 08/25, requires at least 3 months AC (Circa 11/23/25). Outpatient follow up. CHRONIC CONDITIONS # Chronic HFrEF Nt-proBNP was normal 125 on admission w/no signs/symptoms of volume overload. Held home lasix 20mg MWF given lack of PO intake and concern regarding hypotension and hyponatremia as above. Entresto was resumed on 08/21. Lasix was resumed prior to discharge. # Sick sinus syndrome s/p dcICD # NSVT PVC burden of 10% on prior Zio. Metoprolol was therapeutically exchanged to tartrate 12.5 BID on admission. On discharge switched back to metoprolol succinate 12.5 BID. # Chronic iron deficiency anemia: Baseline hb 9-10s, iron low on 08/03, ferritin 101. Received IV Iron this admission and continued po iron. # Moderate malnutrition: Has lost >30lbs over last 6 months d/t poor appetite. Hypocalcemia corrected to ~9 w/albumin. - multivitamins, ensure tid, nutrition consult. Need help with food due to b/l arm pain # Constipation: Senna/miralax scheduled + bisacodyl suppository PRN # Chronic iron deficiency anemia: Baseline hb 9-10s. Tsat 6% on 08/03. Continue po iron, Ensure Outpatient work up. # Moderate malnutrition: has lost >30lbs over last 6 months d/t poor appetite. multivitamins, ensure tid, nutrition consult. Need help with food due to b/l arm pain # Hypothyroidism - levothyroxine 50mg # Anxiety/depression - ativan 0.5 bid -> changed to BID PRN due to high dose opioid use, c/h paroxetine 20 # GERD - omeprazole 20mg daily # Hyperlipidemia - atorvastatin 20mg daily. . # Nonobstructive CAD - asa 81, stop while on therapeutic AC for now Less than 30 days expected rehab * Wound Ostomy Note - Rima Vieyra RN - 08/21/2025 12:50 PM EST Images from the original note were not included. Wound Care Consult Date of Service: 08/21/2025 Patient: Mayra Craft : 1950 [facility]: [id number] Location: [address] Room/Bed: 1266S/1266-2 Admit Date: 08/19/2025 Admission Diagnosis: Principal Problem: Closed comminuted fracture of left humerus, initial encounter Reason for Consult: Skin impairments, present on admission History: Past Medical History[1] Allergies: Allergies[2] Nutrition: Active Orders Diet Diet NPO SIPS WITH MEDS Frequency: Effective Midnight Number of Occurrences: Until Specified Diet Regular Frequency: Effective Now Number of Occurrences: Until Specified Active Orders Nourishments Nutrition supplements Other: see comments; Breakfast, Lunch, and Dinner: Until Discontinued Frequency: Until Discontinued Start Date/Time: 08/20/25 1528 Number of Occurrences: Until Specified Order Comments: Whatever preference pt has Order Questions: Select Supplements: Other: see comments Supplement Frequency Breakfast, Lunch, and Dinner Pertinent Labs: CRP 255,wbc 9.58, HCT 27.1, Hieu Score: Hieu Scale Score: 14 Subscale risk factors placing patient at increase pressure injury risk from intense or prolonged pressure: Sensory Perception Yes Activity Yes Mobility Yes *Redistribution of pressure is the focus for the risk factors above. Subscale risk factors placing patient at increase pressure injury risk by decreasing tissue tolerance: Moisture Yes Friction and Shear Yes Nutrition Yes *Skin protection, positioning, and optimal nutrition is the focus for risk factors above. Pre admission factors contributing to impaired skin integrity include: Co morbidity, limited mobility 2/2 bilateral shoulder injury/pain General Summary: Patient evaluated on Beth, she is lying in bed receptive to my visit. Patient required to be premedicated prior to my visit. Wound Assessment: Location: Right/ Left Elbow Present on Admission Yes Pressure Injury No Type/Etiology: traumatic wound 2/2 fall Concern for infection: no but high risk Wound Assessment: Location: Right 2nd digit Present on Admission Yes Pressure Injury No Type/Etiology:per chart review infection, abx completed Concern for infection: no but high risk 2/2 anatomy of feet Comment: Bilateral heels are intact. Sacral coccygeal is intact/bilateral buttocks intact Wound Infection Toe (Comment) Anterior;Right (Active) No Date First Assessed or Time First Assessed found. Present on Original Admission: Yes Primary Wound Type: Infection Location: Toe (Comment) Wound Orientation: (c) Anterior;Right Wound Description (Comments): On PO Bactrim Assessments 08/21/2025 11:00 AM Assessment Completed By Inpatient Wound Nurse Wound Image Wound Length (cm) 0.3 cm Wound Width (cm) 0.3 cm Wound Depth (cm) 0.1 cm Wound Surface Area (cm^2) 0.07 cm^2 Wound Volume (cm^3) 0.005 cm^3 Wound Bed Site Assessment Red Lynette-Wound Assessment Dry Primary Dressings Povidone iodine Wound 08/08/25 Other (Comment) Elbow Right;Posterior (Active) Date First Assessed/Time First Assessed: 08/08/25 0140 Primary Wound Type: (c) Other (Comment) Location: Elbow Wound Orientation: Right;Posterior Assessments 08/21/2025 11:00 AM Assessment Completed By Inpatient Wound Nurse Wound Image Wound Length (cm) 1.2 cm Wound Width (cm) 0.5 cm Wound Depth (cm) 0 cm Wound Surface Area (cm^2) 0.47 cm^2 Wound Volume (cm^3) 0 cm^3 Structure Exposed None (limited to skin breakdown) Margins Attached edges Foul Odor No Lynette-Wound Assessment Edema;Ecchymosis Treatments Cleansed No associated orders. Wound Traumatic Elbow Right (Active) No Date First Assessed or Time First Assessed found. Present on Original Admission: Yes Primary Wound Type: Traumatic Location: Elbow Wound Orientation: Right Assessments 08/21/2025 11:00 AM Assessment Completed By Inpatient Wound Nurse Wound Image Non-staged Wound Description Full thickness without exposed support structure Wound Length (cm) 0.5 cm Wound Width (cm) 0.5 cm Wound Depth (cm) 0.2 cm Wound Surface Area (cm^2) 0.2 cm^2 Wound Volume (cm^3) 0.026 cm^3 Wound Bed Site Assessment Yellow Structure Exposed Fat Layer exposed Margins Unattached edges Foul Odor No Lynette-Wound Assessment Ecchymosis;Edema Treatments Wound cleanser Primary Dressings Xeroform Cover Dressings Bordered foam No associated orders. Urine management recommendation from wound care perspective: (X) Prima fit Barriers to wound healing: co morbidity, limited mobility, age, compliance, pain, Injuries to bilateral shoulders , Low Hieu score Goals of wound care: Protect, topical therapy, optimize nutrition and mobility, optimize pain management Wound Plan/Recommendations: Pressure relief per pressure injury guidelines Support surface: SW Alternate Low Air Loss If patient is on a SW alternate support surface, please check bed setting each shift. Should be on alternate. -Do not use a fitted sheet if patient in on a SW Alternate support surface -Turn and reposition every 1-2 hours and as needed to offload affected area. -To prevent friction/shearing injuries, use ceiling lift to reposition. No boosting. Avoid shearinginjuries over the coccyx area, never boost patient in bed, use ceiling lift. -Heels off bed surface at all times so that heel(s) are free floating and not touching the bed surface Float Heels On Pillows -If OOB, limit sit time to one hour at a time and Sit on a pressure redistribution cushion- Standard Air -Elevate LE's while sitting. -Moisturize B/L LE's and feet, intact skin only with Moisturizer (Dark purple top) BID. Wound Care Recommendations Bilateral Elbows: -Commercial wound cleanser or normal saline to cleanse wounds. -Pat the tissue dry with dry gauze. -Apply cut to fit single layer of Xeroform to wound -Cover with 4x4 Mepilex, change Q 2 days 2. Right 2nd digit -Commercial wound cleanser or normal saline to cleanse wounds. -Pat the tissue dry with dry gauze. -Apply Betadine daily 3. Patient should f/u with a Licensed Practical Nurse given deformity of bilateral feet/toes to ensure proper footwear. This can be done in an outpatient setting. 4. Please follow Pressure injury prevention guideline policy 1300-1a -Sacral mepilex to sacrum, change Q 3days -OFFLOAD heels at all times while in bed 5. Sw Low Air loss mattress Is patient in agreement with the wound care plan? Yes & RN -Notify MD or wound care nurse if wound or skin deteriorates. -Discharge Planning: TBD Wound care will Follow Signed by: Diamond Vieyra RN, BSN, CWOCN [1] Past Medical History: Diagnosis Date COPD (chronic obstructive pulmonary disease) ([facility]) [2] Allergies Allergen Reactions Tetracyclines Hives, Rash and Unknown In mouth Hives; In mouth Substance with tetracycline structure (substance) Gabapentin Headaches and Other (See Comments) Shakes, syncope Psychological * Plan of Care - Jemima Jara PT - 08/21/2025 11:43 AM EST PHYSICAL THERAPY CONTACT NOTE Rehabilitation Services - Inpatient Physical Therapy Consult received and appreciated. Chart reviewed and case discussed with RN / / KORTNEY in patient progression rounds and afterwards w/ OT. Per OT evaluation today, recommend return back to short term interdisciplinary rehab whenever pt ismedically ready. Patient may not require acute PT note to d/c to facility w/ OT involvement in pt'scase. Acute PT will follow along and evaluate if further indicated. Recommend continued optimization of pain control. Per ortho, plan to aspirate R shoulder tomorrow. Please page the covering PT with any questions or concerns. Recommend continued regular mobility with nursing as able. Time: 1146 Physical Therapist Name: Jemima Jara PT, DPT Physical Therapist Pager: [phone] Physical Therapist License Number: [id number] For questions please check the patient???s care team for the most updated PT contact information * Care Coordination Note - Sarah Phoenix RN - 08/21/2025 8:39 AM EST Images from the original note were not included. Initial Care Coordination Assessment Patient: Mayra Craft : 1950 Attending: Albin Puentes DO Admit Date: 08/19/2025 Inpatient Status Admit Date: 08/20/25 Primary Care Physician: Vanessa Culver MD [facility] Case Management Admission Note Reason for admission/Physical Chemistry Teacher comments: 74-year-old woman with multiple medical problems and a complex history related to management of herright shoulder, who now presents after a ground-level fall with left shoulder pain, and acute on chronic exacerbation of her right shoulder pain. She is s/p right reverse total shoulder arthroplasty converted to hemiarthroplasty by Dr. Goins on 08/01/2025. [facility] from: [facility] Transfer from an acute care hospital? [place] of hospital: Readmission within 30 days? Yes Previously active with services? Yes Name of VNA, Elder Services, Hemodialysis Center, and/or DME Vendor (if applicable): Adela camargo STR Health Care Proxy in the chart?: Yes Guardian? No Ascencio? No MOLST? No Workmen's Compensation? (If yes, please also indicate name of insurer, claim #, gauge and weigh machine adjuster if applicable) No Notified [employer]?: No Vehicle Accident? (If yes, please also indicate name of insurer, claim #, gauge and weigh machine adjuster if applicable) No Payor Concerns?: No Notified [employer]? Anticipated Case Management Action: The Nurse Physical Chemistry Teacher will continue to follow the patient and assist as needed if any post discharge needs should be required during this hospitalization. Has the patient, their reimbursement representative, or physician requested a discharge planning evaluation? No Was the patient discussed in Multidisciplinary Rounds (MDR)?: Yes Case Management will continue to monitor and address anticipated discharge planning needs. Should post-acute services be indicated, the patient and/or their authorized reimbursement representative will be providedwith a comprehensive list of available, appropriate providers. Discharge Planning Lives with: Alone In the last 12 months, was there a time when you were not able to pay the mortgage or rent on time?: No Support Systems: Children, Friends/neighbors, Therapist Type of Residence: Private residence Home Care Services: Yes Prior Types of Post Acute Facility Services: Rehab In the past 12 months, has lack of transportation kept you from medical appointments or from getting medications?: No In the past 12 months, has lack of transportation kept you from meetings, work, or from getting things needed for daily living?: No Sarah Phoenix RN Pager: 08/21/2025 8:39 AM * Plan of Care - Guerda Sparks RN - 08/20/2025 5:55 PM EST Problem: Skin/Tissue Integrity - Adult Goal: Skin integrity remains intact Outcome: Progressing Goal: Incisions, wounds, or drain sites healing without S/S of infection Outcome: Progressing Goal: Oral mucous membranes remain intact Outcome: Progressing Problem: Pain - Adult Goal: Verbalizes/displays adequate comfort level or baseline comfort level Outcome: Progressing Problem: Safety-Adult Goal: Free from fall injury Outcome: Progressing Problem: Discharge Planning Goal: Discharge to home or other facility with appropriate resources Outcome: Progressing Problem: Altered Nutrient Intake Goal: Nutrient intake appropriate for improving, restoring or maintaining nutritional needs Outcome: Progressing Problem: Chronic Conditions and Co-morbidities Goal: Patient's chronic conditions and co-morbidity symptoms are monitored and maintained or improved Outcome: Progressing Problem: Mobility Goal: Improve mobility to highest level of function Outcome: Progressing Problem: Post operative care Goal: Post-operative patient will remain free of complications following surgery Outcome: Progressing Problem: Knowledge Deficit Goal: Patient/family/caregiver demonstrates understanding of disease process, treatment plan, medications, and discharge instructions Outcome: Progressing * Plan of Care - Nayana Gill MD - 08/20/2025 11:20 AM EST Images from the original note were not included. Orthopaedic Surgery Trauma Plan of Care Note Per further attending discussion with Dr. Joshua Cordova and Dr. Goins this morning, we recommend proceeding with aspiration of the right shoulder to rule out septic arthritis in the setting of elevated white blood cell count, CRP, and clinical exam. Naynaa Gill MD Orthopaedic Surgery, PGY1 [facility] Orthopaedic Residency Program [facility] West Floor Pager: [phone] [facility] East Floor Pager: [phone] Ortho Spine Floor Pager: [phone] Consult Pager: [phone] * Attestation Note - Shelley Roblero MD - 08/19/2025 4:42 PM EST Emergency department ENCOUNTER Attending attestation Date of Service 08/19/2025 CHIEF COMPLAINT Shoulder Pain HPI Discussion with Independent Historian: EMS Mayra Craft is a 74 y.o. female patient with history COPD with 4 L O2 by nasal cannula intermittently presenting 4 days after a fall at her rehab facility. She had a fall recently with a right shoulder fracture which was surgically repaired in July. She reports that 4 nights ago she fell off the toilet at her rehab. She was taken to [facility] at some point after that. It appears thatjannette was sent here today in the setting of the right shoulder looking abnormal and being painful andsignificant swelling in the left arm. PHYSICAL EXAM Vitals: 08/19/25 1713 BP: 91/68 Pulse: (!) 98 Resp: 16 Temp: SpO2: 97% Gen: Uncomfortable with any movement of her upper extremities, nontoxic appearance but chronically ill HEENT: NCAT Cardiovascular: well perfused Pulmonary: diffuse wheezes R breast area + greenish/ maroon colored ecchymosis Extremities: No lower extremity TTP, right shoulder irregularly contoured, diffusely tender, resists movement, also tender at the elbow and similarly resists movement, left shoulder is nontender, patient has tenderness from the mid humerus through the elbow on the robert Skin: Diffuse ecchymosis of the left upper arm with marked swelling, wound of the right posterior elbow with some purulent drainage Neuro: Speech fluent, CN grossly intact, no focal motor deficits Psych: normal mentation Medical Decision Making Mayra Craft is a 74 y.o. female with COPD with a recent complicated orthopedic history with an initial right shoulder surgical repair and subsequent fall onto the left arm with fracture. Has been at rehab since 1127 and had a fall again 4 days ago.. Has significant swelling, pain and ecchymosis of the left upper arm with tenderness in the elbow area. Has a wound on the right elbow which appears infected and has a grossly abnormal appearing right shoulder joint, resists motion at the elbow. Emergency Department Course Given concern for possible sepsis the patient was started on empiric antibiotic coverage. X-rays show a dislocation of the right shoulder prosthetic and a fracture of the left humeral head. Planning a CTA of the chest with concern for possible PE in the setting of her worsening hypoxia. Orthopedics consulted. Awaiting final recommendations at time of shift signout. Patient will require admission to address each of her ongoing issues. Clinical Impression Left humeral head fracture Dislocation right prosthetic shoulder Right elbow infection Hypoxia I was physically present during the landrum or critical portions of the service performed by the resident, was immediately available to furnish services during the entire procedure performed, and participated in the management of the patient. Critical Care Procedure Note Authorized and Performed by: Shelley Roblero MD, MPH Total critical care time: Approximately 34 minutes Due to a high probability of clinically significant, life threatening deterioration, the patient required my highest level of preparedness to intervene emergently and I personally spent this criticalcare time directly and personally managing the patient. This critical care time included obtaining a history; examining the patient; assessment of vital signs, ordering and review of studies; arranging urgent treatment with development of a management plan; evaluation of patient's response to treatment; frequent reassessment; and discussions with other providers. This critical care time was exclusive of separately billable procedures and treating other patients and teaching time. Please see MDM section and the rest of the note for further information on patient assessment and treatment. MD Shelley Lawler MD 08/22/25 0741 documented in this encounter Plan of Treatment Upcoming Encounters Date Type Department Care Team (Late st Contact Info) Description 09/11/2025 12:40 PM EST Appointment [facility] Diagnostic Radiology [address] 4th [place] [address] Everette Mccallum PA [address] [place] [address] In Person with Resource 09/11/2025 1:00 PM EST Office Visit [facility] Orthopedics [address] [place] [address] Everette Mccallum PA [address] [place] [address] In Person with Physician Annual Campaign Manager Scheduled Referrals Name Type Priority Associated Diagnoses Order Schedule Ambulatory Referral to Neurology Outpatient Referral Routine Wrist drop, acquired, right Expected: 09/04/2025 (Approximate), Expires: 09/04/2026 Ambulatory Referral to Urology Outpatient Referral Routine Urinary retention Expected: 09/04/2025 (Approximate), Expires: 09/04/2026 Ambulatory Referral to Cardiac Rehabilitation Clinic Outpatient Referral Routine Chronic systolic heart failure (CMS-HCC) Expected: 09/10/2025 (Approximate), Expires: 09/10/2026 documented as of this encounter Goals Goal Patient Goal Type Associated Problems Recent Progress Patient-Stated? Author Autogenera rai Goal Care Plan Autogenerated Problem No Sasha An Autogenera rai Goal Care Plan Autogenerated Problem No Mini Benavides documented as of this encounter Procedures Procedure Name Priority Date/Time Associated Diagnosis Comments HS-TROPONIN 3 HOUR STAT 09/09/2025 8: 17 AM EST HS TROPONIN T(REFLEX 3 HR) Routine 09/09/2025 5:26 AM EST CBC Timed 09/09/2025 5:26 AM EST RENAL FUNCTION PANEL Timed 09/09/2025 5:26 AM EST ECG 12-LEAD Routine 09/09/2025 4:36 AM EST Chest pain, unspecified type MRI CERVICAL SPINE WO CONTRAST Routine 09/07/2025 10:13 PM EST CBC Timed 09/07/2025 6:31 AM EST RENAL FUNCTION PANEL Timed 09/07/2025 6:31 AM EST ZINC, SERUM Routine 09/06/2025 11:45 AM EST C-REACTIVE PROTEIN Routine 09/06/2025 11 :45 AM EST METHYLMALONIC ACID Routine 09/06/2025 11 :44 AM EST VITAMIN A (RETINOL) Routine 09/06/2025 1 1:44 AM EST VITAMIN B12 Routine 09/06/2025 11:44 AM EST HS TROPONIN T STAT 09/04/2025 4:03 AM EST IRON PROFILE Routine 09/04/2025 4:03 AM EST CBC Timed 09/04/2025 4:03 AM EST C-REACTIVE PROTEIN Timed 09/04/2025 4: 03 AM EST RENAL FUNCTION PANEL Timed 09/04/2025 4:03 AM EST ECG 12-LEAD STAT 09/04/2025 3:43 AM EST Chest pain, unspecified type CBC Timed 09/03/2025 5:39 AM EST C-REACTIVE PROTEIN Timed 09/03/2025 5: 39 AM EST RENAL FUNCTION PANEL Timed 09/03/2025 5:39 AM EST CBC Timed 09/02/2025 6:06 AM EST C-REACTIVE PROTEIN Timed 09/02/2025 6: 06 AM EST RENAL FUNCTION PANEL Timed 09/02/2025 6:06 AM EST CBC Timed 09/01/2025 5:36 AM EST C-REACTIVE PROTEIN Timed 09/01/2025 5: 36 AM EST RENAL FUNCTION PANEL Timed 09/01/2025 5:36 AM EST CBC Timed 08/31/2025 5:44 AM EST C-REACTIVE PROTEIN Timed 08/31/2025 5: 44 AM EST RENAL FUNCTION PANEL Timed 08/31/2025 5:44 AM EST CBC Timed 08/30/2025 5:30 AM EST C-REACTIVE PROTEIN Timed 08/30/2025 5: 28 AM EST RENAL FUNCTION PANEL Timed 08/30/2025 5:28 AM EST VITAMIN D,25OH Routine 08/29/2025 6:24 AM EST CBC Timed 08/29/2025 6:24 AM EST C-REACTIVE PROTEIN Timed 08/29/2025 6: 24 AM EST RENAL FUNCTION PANEL Timed 08/29/2025 6:24 AM EST XR PORTABLE CHEST 1 VW Routine 3:47 PM EST XR HUMERUS 2 VW+ RIGHT Routine 3:47 PM EST XR SHOULDER 2+ VW LEFT Routine 10:56 AM EST CBC Timed 08/28/2025 5:36 AM EST C-REACTIVE PROTEIN Timed 08/28/2025 5: 36 AM EST RENAL FUNCTION PANEL Timed 08/28/2025 5:36 AM EST IR NON TUNNELED VASCULAR CATHETER Routine 08/27/2025 1:36 PM EST CBC Timed 08/27/2025 8:18 AM EST C-REACTIVE PROTEIN Timed 08/27/2025 8: 17 AM EST RENAL FUNCTION PANEL Timed 08/27/2025 8:17 AM EST CBC AND DIFFERENTIAL Routine 08/26/2025 11:37 AM EST CBC AND DIFFERENTIAL Routine 08/26/2025 11:37 AM EST C-REACTIVE PROTEIN Routine 08/26/2025 11 :37 AM EST TSH Routine 08/26/2025 11:37 AM EST T4, FREE Routine 08/26/2025 11:37 AM EST RENAL FUNCTION PANEL Routine 08/26/2025 11:37 AM EST URIC ACID, RANDOM URINE Routine 08/26/2025 1:55 AM EST UREA NITROGEN, URINE Routine 08/26/2025 1:55 AM EST SODIUM, URINE, RANDOM Routine 08/26/2025 1:55 AM EST OSMOLALITY, URINE Routine 08/26/2025 1:5 5 AM EST CREATININE, URINE, RANDOM Routine 08/26/2025 1:55 AM EST XR PORTABLE ABDOMEN Routine 08/25/2025 3 :33 PM EST VANCOMYCIN, TROUGH Routine 08/25/2025 1: 37 PM EST BID URINE HOLD Routine 08/25/2025 11:27 AM EST BID UA WITH URINE CULTURE REFLEX Routine 08/25/2025 11:27 AM EST UREA NITROGEN, URINE Routine 08/25/2025 11:27 AM EST SODIUM, URINE, RANDOM Routine 08/25/2025 11:27 AM EST OSMOLALITY, URINE Routine 08/25/2025 11: 27 AM EST CREATININE, URINE, RANDOM Routine 08/25/2025 11:27 AM EST URINALYSIS WITH URINE CULTURE REFLEX Routine 08/25/2025 11:27 AM EST OSMOLALITY Routine 08/25/2025 10:06 AM EST HEPARIN ASSAY (UNFRACTIONATED HEPARIN) Routine 08/25/2025 6:38 AM EST CBC Timed 08/25/2025 6:38 AM EST C-REACTIVE PROTEIN Timed 08/25/2025 6: 38 AM EST RENAL FUNCTION PANEL Timed 08/25/2025 6:38 AM EST VANCOMYCIN, TROUGH Routine 08/24/2025 1: 02 PM EST XR WRIST 3+ VW RIGHT Routine 08/24/2025 12:26 PM EST XR HAND 3+ VW RIGHT Routine 08/24/2025 1 2:26 PM EST ECG 12-LEAD Routine 08/24/2025 9:39 AM EST Acute pain of left shoulder HEPARIN ASSAY (UNFRACTIONATED HEPARIN) Routine 08/24/2025 6:04 AM EST CBC Timed 08/24/2025 6:03 AM EST C-REACTIVE PROTEIN Timed 08/24/2025 6: 03 AM EST RENAL FUNCTION PANEL Timed 08/24/2025 6:03 AM EST HEPARIN ASSAY (UNFRACTIONATED HEPARIN) Routine 08/23/2025 11:50 PM EST HS TROPONIN T Timed 08/23/2025 4:17 PM EST HEPARIN ASSAY (UNFRACTIONATED HEPARIN) Routine 08/23/2025 4:17 PM EST STAPH AUREUS BY PCR Routine 08/23/2025 1 :29 PM EST NASAL MRSA BY PCR Routine 08/23/2025 1:2 9 PM EST HS TROPONIN T Timed 08/23/2025 8:49 AM EST HEPARIN ASSAY (UNFRACTIONATED HEPARIN) Routine 08/23/2025 8:49 AM EST CBC Timed 08/23/2025 8:49 AM EST C-REACTIVE PROTEIN Timed 08/23/2025 8: 49 AM EST MAGNESIUM Routine 08/23/2025 8:49 AM EST XR PORTABLE CHEST 1 VW STAT 1:31 AM EST NT-PROBNP STAT 08/23/2025 1:28 AM EST CBC STAT 08/23/2025 1:28 AM EST BASIC METABOLIC PANEL STAT 08/23/2025 1:28 AM EST ECG 12-LEAD STAT 08/23/2025 12:37 AM EST Acute hypoxic respiratory failure (CMS-HCC) IR MSK INJECTION / ASPIRATION - US Routine 08/22/2025 10:01 AM EST CULTURE, PROSTHETIC JOINT FLUID Routine 08/22/2025 9:53 AM EST Pain Acute pain of left shoulder APTT Routine 08/22/2025 6:57 AM EST PROTIME-INR Routine 08/22/2025 6:57 AM EST HEPARIN ASSAY (UNFRACTIONATED HEPARIN) Routine 08/22/2025 6:57 AM EST CBC Timed 08/22/2025 6:57 AM EST C-REACTIVE PROTEIN Timed 08/22/2025 6: 57 AM EST MAGNESIUM Timed 08/22/2025 6:57 AM EST LIPASE Routine 08/22/2025 6:57 AM EST BASIC METABOLIC PANEL Timed 08/22/2025 6:57 AM EST ECG 12-LEAD STAT 08/21/2025 10:27 PM EST HEPARIN ASSAY (UNFRACTIONATED HEPARIN) Routine 08/21/2025 1:28 PM EST HEPARIN ASSAY (UNFRACTIONATED HEPARIN) Routine 08/21/2025 7:00 AM EST CBC Timed 08/21/2025 7:00 AM EST C-REACTIVE PROTEIN Timed 08/21/2025 7: 00 AM EST MAGNESIUM Timed 08/21/2025 7:00 AM EST BASIC METABOLIC PANEL Timed 08/21/2025 7:00 AM EST HEPARIN ASSAY (UNFRACTIONATED HEPARIN) Routine 08/21/2025 12:37 AM EST HEPARIN ASSAY (UNFRACTIONATED HEPARIN) Timed 08/20/2025 3:21 PM EST US UPPER EXTREMITY VENOUS BILATERAL STAT 08/20/2025 9:51 AM EST HS-TROPONIN T, 1HR STAT 08/20/2025 7: 32 AM EST BB RETYPE STAT 08/20/2025 7:32 AM EST APTT Routine 08/20/2025 7:32 AM EST PROTIME-INR Routine 08/20/2025 7:32 AM EST HEPARIN ASSAY (UNFRACTIONATED HEPARIN) Routine 08/20/2025 7:32 AM EST C-REACTIVE PROTEIN Timed 08/20/2025 7: 32 AM EST PHOSPHORUS Timed 08/20/2025 7:32 AM EST MAGNESIUM Timed 08/20/2025 7:32 AM EST COMPREHENSIVE METABOLIC PANEL Timed 08/20/2025 7:32 AM EST CBC Timed 08/20/2025 7:[address] SHOULDER LEFT WO CONTRAST STAT 08/20/2025 5:09 AM EST LACTIC ACID WITH REFLEX STAT 08/20/2025 4:23 AM EST XR PORTABLE CHEST 1 VW STAT 8:43 PM EST XR SHOULDER 2+ VW RIGHT STAT 08/19/2025 8:43 PM EST XR SHOULDER 2+ VW LEFT STAT 8:43 PM EST XR ELBOW 3+ VW RIGHT STAT 08/19/2025 8:43 PM EST XR ELBOW 3+ VW LEFT STAT 08/19/2025 8 :43 PM EST HS-TROPONIN 3 HOUR STAT 08/19/2025 8: 10 PM EST US LOWER EXTREMITY VENOUS LEFT STAT 08/19/2025 7:08 PM EST CTA CHEST PE STAT 08/19/2025 6:[address] CERVICAL SPINE WO CONTRAST STAT 08/19/2025 6:[address] HEAD WO CONTRAST STAT 08/19/2025 6 :49 PM EST ECG 12-LEAD STAT 08/19/2025 5:26 PM EST TYPE AND SCREEN STAT 08/19/2025 5:13 PM EST DARK GREEN NA HEP TOP STAT 08/19/2025 5:12 PM EST NT-PROBNP Routine 08/19/2025 5:12 PM EST YELLOW TOP STAT 08/19/2025 5:12 PM EST LIGHT BLUE TOP STAT 08/19/2025 5:12 PM EST RAINBOW DRAW STAT 08/19/2025 5:12 PM EST CULTURE, BLOOD STAT 08/19/2025 5:12 PM EST C-REACTIVE PROTEIN Routine 08/19/2025 5: 12 PM EST MAGNESIUM Routine 08/19/2025 5:12 PM EST HS TROPONIN T (REFLEX 1HR, 3HR) Routine 08/19/2025 5:10 PM EST CBC AND DIFFERENTIAL STAT 08/19/2025 5:10 PM EST BLOOD GAS FULL PANEL, VENOUS STAT 08/19/2025 5:10 PM EST CBC AND DIFFERENTIAL STAT 08/19/2025 5:10 PM EST COMPREHENSIVE METABOLIC PANEL STAT 08/19/2025 5:10 PM EST documented in this encounter Results * (ABNORMAL) hs-Troponin T, 3hr (09/09/2025 8:17 AM EST) Troponin T HS 20(H) <=19 ng/L 09/09/2025 8:46 AM EST [facility] Comment: hs-cTnT<=19 ng/L in 99% of healthy individuals. hs-cTnT values of 30, 52, 100 and 1000 ng/L correspond to approximately DONNA Gen 4 of 0.01, 0.03, 0.1 and 1 ng/mL Blood PERIPHERAL BLOOD SPECIMEN / Unknown Venipuncture / Unknown 09/09/2025 8:17 AM EST 09/09/2025 8:20 AM EST us Jamie Zaldivar MD LAB BLOOD ORDERABLES Final Res ult Performing Organization Address [facility] de Phone Number [facility] [address] [facility] [place] [address], [place] * hs Troponin T (Now, reflex 3hr) (09/09/2025 5:26 AM EST) Troponin T HS 18 <=19 ng/L 09/09/2025 7:26 AM EST [facility] Comment: hs-cTnT<=19 ng/L in 99% of healthy individuals. hs-cTnT values of 30, 52, 100 and 1000 ng/L correspond to approximately DONNA Gen 4 of 0.01, 0.03, 0.1 and 1 ng/mL Blood PERIPHERAL BLOOD SPECIMEN / Unknown Venipuncture / Unknown 09/09/2025 5:26 AM EST 09/09/2025 6:46 AM EST us Jamie Zaldivra MD LAB BLOOD ORDERABLES Final Res ult Performing Organization Address [facility] de Phone Number [facility] [address] [place] [address], [place] * (ABNORMAL) CBC (09/09/2025 5:26 AM EST) WBC 4.45 4.00 - 10.00 K/uL 09/09/2025 6:46 AM EST [facility] AP RBC 3.04(L) 3.90 - 5.20 M/uL 09/09/2025 6:46 AM EST [facility] AP Hemoglobin 8.6(L) 11.2 - 15.7 g/dL 09/09/2025 6:46 AM EST [facility] AP Hematocrit 28.7(L) 34.0 - 45.0 % 09/09/2025 6:46 AM EST [facility] AP MCV 94 82 - 98 fL 09/09/2025 6:46 AM EST [facility] AP MCH 28.3 26.0 - 32.0 pg 09/09/2025 6:46 AM EST [facility] AP MCHC 30.0(L) 32.0 - 37.0 g/dL 09/09/2025 6:46 AM EST [facility] AP RDW 18.9(H) 10.5 - 15.5 % 09/09/2025 6:46 AM EST [facility] AP RDW-SD 64.4(H) 35.1 - 46.3 fL 09/09/2025 6:46 AM EST [facility] AP Platelet Count 220 150 - 400 K/uL 09/09/2025 6:46 AM EST [facility] AP Nucleated RBC 0 <=0 #/100 WBC 09/09/2025 6:46 AM [facility] AP Blood PERIPHERAL BLOOD SPECIMEN / Unknown Venipuncture / Unknown 09/09/2025 5:26 AM EST 09/09/2025 6:37 AM EST us Jorge Piña MD LAB BLOOD ORDERABLES Final Resul t [facility] AP [address] [facility] [place] [address], * (ABNORMAL) Renal Function Panel (09/09/2025 5:26 AM EST) Sodium 134(L) 135 - 147 mmol/L 09/09/2025 7:22 AM EST [facility] Potassium 4.8 3.5 - 5.4 mmol/L 09/09/2025 7:22 AM EST [facility] Chloride 99 96 - 108 mmol/L 09/09/2025 7:22 AM EST [facility] Total CO2/Bicarbonate 29 22 - 32 mmol/L 09/09/2025 7:22 AM EST [facility] Anion Gap 6 4 - 16 mmol/L 09/09/2025 7:22 AM EST [facility] BUN 19 6 - 20 mg/dL 09/09/2025 7:22 AM [facility] Creatinine, Blood 0.40 0.40 - 1.10 mg/dL 09/09/2025 7:22 AM EST [facility] Glucose, Blood 94 70 - 100 mg/dL 09/09/2025 7:22 AM EST [facility] Calcium 8.2(L) 8.4 - 10.3 mg/dL 09/09/2025 7:22 AM EST [facility] Albumin, Blood 2.3(L) 3.5 - 5.2 g/dL 09/09/2025 7:22 AM EST [facility] Phosphorus 3.2 2.7 - 4.5 mg/dL 09/09/2025 7:22 AM [facility] Magnesium, Blood 2.2 1.6 - 2.6 mg/dL 09/09/2025 7:22 AM [facility] Blood PERIPHERAL BLOOD SPECIMEN / Unknown Venipuncture / Unknown 09/09/2025 5:26 AM EST 09/09/2025 6:46 AM EST us Jorge Piña MD LAB BLOOD ORDERABLES Final Resul t Performing Organization Address City/State/[facility] Co de Phone Number [facility] [address] [facility] [place] [address], * ECG 12 lead (09/09/2025 4:36 AM EST) Ventricular Heart Rate 75 BPM EKG [facility] Atrial Heart Rate 75 BPM EKG [facility] UT Interval 182 ms EKG [facility] QRSD Interval 118 ms EKG [facility] QT Interval 384 ms EKG [facility] QTC Interval 428 ms EKG [facility] M[facility] P [place] 56 degrees EKG [facility] MUSE R [place] 5 degrees EKG [facility] T Wave [place] 15 degrees EKG [facility] 09/09/2025 4:34 AM EST 09/09/2025 4:04 PM EST Narrative EKG [facility] - 09/09/2025 4:04 PM EST Normal sinus rhythm Cannot rule out Inferior infarct , age undetermined Abnormal ECG When compared with ECG of 04-Sep-2025 03:48, QRS duration has increased Procedure Note Indu Appiah MD - 09/09/2025 Normal sinus rhythm Cannot rule out Inferior infarct , age undetermined Abnormal ECG When compared with ECG of 04-Sep-2025 03:48, QRS duration has increased us Jamie Shannon Zaldivar MD ECG ORDERABLES Final Result Performing Organization Address City/State/[facility] Co de Phone Number EKG [facility] [address] [place] [phone] * MRI Cervical Spine Without Contrast (09/07/2025 10:13 PM EST) Anatomical Region Laterality Modality Cervical Spine Magnetic Resonan ce 09/08/2025 9:51 AM EST Impressions 09/09/2025 12:58 PM EST Incomplete prematurely terminated motion degraded exam due to patient's discomfort and claustrophobia. 1. Multilevel degenerative changes causing up to mild spinal canal stenosis most notable from C4-C5 through C6-C7 as detailed. 2. Within limitation of patient's motion, no convincing abnormal cord signal. 3. Chronic appearing T1 compression fracture with approximately 70% height loss without retropulsion. 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 Request for MRI if image is going to have good fidelity.; DR. JORGE PIÑA TECHNIQUE: Non-contrast multiplanar, multisequence MRI imaging of the spine was obtained. Incomplete prematurely terminated exam due to patient's discomfort and claustrophobia despite premedication. Only motion degraded sagittal T1, T2 and axial T2 weighted sequences were obtained COMPARISON: CT cervical spine 19 August 2025. FINDINGS: There is reversal of the cervical lordosis at C5 level. There is no substantial change in the alignment. Chronic appearing compression fracture of T1 vertebral body with approximately 70% height loss without retropulsion. Redemonstrated decreased height of C5, C6 and C7 vertebral bodies. The cervical cord show normal caliber. Within the limitation of patient's motion, no convincing abnormal cord signal is evident. Prevertebral and paraspinal soft tissues are unremarkable. Axial cuts: Axial GRE weighted sequence was not obtained limiting evaluation of the neural foramina. At C2-C3, there is no spinal canal stenosis. At C3-C4, there is no spinal canal stenosis. At C4-C5, there is central protrusion with [id number]-left uncovertebral joint hypertrophy causing mild spinal canal stenosis and at least mild bilateral neural foraminal narrowing. At C5-C6, there is uncovertebral joint hypertrophy and disc osteophyte complex causing mild spinal canal stenosis and at least mild left neural foraminal narrowing. At C6-C7, there is small disc bulge with uncovertebral joint hypertrophy causing mild spinal canal stenosis. There is at least mild left neural foraminal narrowing. At C7-T1, there is minimal disc bulge without appreciable spinal canal stenosis. 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 Request for MRI if image is going to have good fidelity.; DR. JORGE PIÑA TECHNIQUE: Non-contrast multiplanar, multisequence MRI imaging of the spine was obtained. Incomplete prematurely terminated exam due to patient's discomfort and claustrophobia despite premedication. Only motion degraded sagittal T1, T2 and axial T2 weighted sequences were obtained COMPARISON: CT cervical spine 19 August 2025. FINDINGS: There is reversal of the cervical lordosis at C5 level. There is no substantial change in the alignment. Chronic appearing compression fracture of T1 vertebral body with approximately 70% height loss without retropulsion. Redemonstrated decreased height of C5, C6 and C7 vertebral bodies. The cervical cord show normal caliber. Within the limitation of patient's motion, no convincing abnormal cord signal is evident. Prevertebral and paraspinal soft tissues are unremarkable. Axial cuts: Axial GRE weighted sequence was not obtained limiting evaluation of the neural foramina. At C2-C3, there is no spinal canal stenosis. At C3-C4, there is no spinal canal stenosis. At C4-C5, there is central protrusion with wgnpc-[id number]-mnyv-left uncovertebral joint hypertrophy causing mild spinal canal stenosis and at least mild bilateral neural foraminal narrowing. At C5-C6, there is uncovertebral joint hypertrophy and disc osteophyte complex causing mild spinal canal stenosis and at least mild left neural foraminal narrowing. At C6-C7, there is small disc bulge with uncovertebral joint hypertrophy causing mild spinal canal stenosis. There is at least mild left neural foraminal narrowing. At C7-T1, there is minimal disc bulge without appreciable spinal canal stenosis. IMPRESSION: Incomplete prematurely terminated motion degraded exam due to patient's discomfort and claustrophobia. 1. Multilevel degenerative changes causing up to mild spinal canal stenosis most notable from C4-C5 through C6-C7 as detailed. 2. Within limitation of patient's motion, no convincing abnormal cord signal. 3. Chronic appearing T1 compression fracture with approximately 70% height loss without retropulsion. WET READ: : Alena Davidson MD, electronically signed on Sep 09 2025 12:58PM Jorge Piña MD [facility] MRI ORDERABLES Final Result * (ABNORMAL) CBC (09/07/2025 6:31 AM EST) WBC 4.34 4.00 - 10.00 K/uL 09/07/2025 7:46 AM EST [facility] AP RBC 3.02(L) 3.90 - 5.20 M/uL 09/07/2025 7:46 AM EST [facility] AP Hemoglobin 8.6(L) 11.2 - 15.7 g/dL 09/07/2025 7:46 AM EST [facility] AP Hematocrit 28.2(L) 34.0 - 45.0 % 09/07/2025 7:46 AM EST [facility] AP MCV 93 82 - 98 fL 09/07/2025 7:46 AM EST [facility] AP MCH 28.5 26.0 - 32.0 pg 09/07/2025 7:46 AM EST [facility] AP MCHC 30.5(L) 32.0 - 37.0 g/dL 09/07/2025 7:46 AM EST [facility] AP RDW 18.1(H) 10.5 - 15.5 % 09/07/2025 7:46 AM EST [facility] AP RDW-SD 59.7(H) 35.1 - 46.3 fL 09/07/2025 7:46 AM EST [facility] AP Platelet Count 232 150 - 400 K/uL 09/07/2025 7:46 AM EST [facility] AP Nucleated RBC 0 <=0 #/100 WBC 09/07/2025 7:46 AM [facility] AP Blood PERIPHERAL BLOOD SPECIMEN / Unknown Venipuncture / Unknown 09/07/2025 6:31 AM EST 09/07/2025 7:22 AM EST us Jorge Piña MD LAB BLOOD ORDERABLES Final Resul t [facility] [address] [place] [id number], * (ABNORMAL) Renal Function Panel (09/07/2025 6:31 AM EST) Sodium 134(L) 135 - 147 mmol/L 09/07/2025 8:01 AM [facility] Potassium 3.9 3.5 - 5.4 mmol/L 09/07/2025 8:01 AM [facility] Chloride 100 96 - 108 mmol/L 09/07/2025 8:01 AM [facility] Total CO2/Bicarbonate 29 22 - 32 mmol/L 09/07/2025 8:01 AM EST [facility] Anion Gap 5 4 - 16 mmol/L 09/07/2025 8:01 AM [facility] BUN 19 6 - 20 mg/dL 09/07/2025 8:01 AM EST [facility] Creatinine, Blood 0.40 0.40 - 1.10 mg/dL 09/07/2025 8:01 AM EST [facility] Glucose, Blood 114(H) 70 - 100 mg/dL 09/07/2025 8:01 AM EST [facility] Calcium 8.4 8.4 - 10.3 mg/dL 09/07/2025 8:01 AM EST [facility] Albumin, Blood 2.3(L) 3.5 - 5.2 g/dL 09/07/2025 8:01 AM EST [facility] Phosphorus 3.7 2.7 - 4.5 mg/dL 09/07/2025 8:01 AM EST [facility] Magnesium, Blood 2.1 1.6 - 2.6 mg/dL 09/07/2025 8:01 AM EST [facility] Blood PERIPHERAL BLOOD SPECIMEN / Unknown Venipuncture / Unknown 09/07/2025 6:31 AM EST 09/07/2025 7:22 AM EST us Jorge Piña MD LAB BLOOD ORDERABLES Final Resul t Performing Organization Address City/[facility] Co co Phone Number [facility] [address] [place] [address], * (ABNORMAL) C-Reactive Protein (09/06/2025 11:45 AM EST) [facility] C-Reactive Protein (CRP) 44.1(H) 0.0 - 5.0 mg/L 09/06/2025 2:04 PM EST [facility] Blood PERIPHERAL BLOOD SPECIMEN / Unknown Venipuncture / Unknown 09/06/2025 11:45 AM EST 09/06/2025 1:03 PM EST us Jorge Piña MD LAB BLOOD ORDERABLES Final Resul t Performing Organization Address City/State/[facility] Co de Phone Number [facility] [address] [place] [address], * (ABNORMAL) Zinc, Serum (09/06/2025 11:45 AM EST) [facility] Zinc, Blood 51(L) 60 - 130 mcg/dL 09/09/2025 6:00 PM EST [facility] Comment: This test was developed and its analytical performance characteristics have been determined by [employer] [place], [place]. It has not been cleared or approved by the U.S. Food and Drug Administration. This assay has been validated pursuant to the CLIA regulations and is used for clinical purposes. Blood PERIPHERAL BLOOD SPECIMEN / Unknown Venipuncture / Unknown 09/06/2025 11:45 AM EST 09/06/2025 1:04 PM EST Narrative [facility] - 09/09/2025 6:00 PM EST Performing Organization Information: Site ID: [email or web address] Name: [email or web address] Address: [address] [place] [phone] Director: VENANCIO RIZZO MD,PHD us Jorge Piña MD LAB BLOOD ORDERABLES Final Resul t Performing Organization Address City/[facility]/ZIP Co de Phone Number [facility] [address] [place] [address], * Vitamin B12 (09/06/2025 11:44 AM EST) [facility] Vitamin B12 Level 667 240 - 900 pg/mL 09/06/2025 2:00 PM EST [facility] Blood PERIPHERAL BLOOD SPECIMEN / Unknown Venipuncture / Unknown 09/06/2025 11:44 AM EST 09/06/2025 1:03 PM EST us Jorge Piña MD LAB BLOOD ORDERABLES Final Resul t [facility] [address] [facility] [place] [address], * Methylmalonic Acid, Serum (09/06/2025 11:44 AM EST) [facility] Methylmalonic Acid, Serum 139 69 - 390 nmol/L 09/09/2025 11:00 AM EST [facility] Comment: Serum methylmalonic acid (MMA) levels are used to diagnose and monitor several rare inborn errors of metabolism, including methylmalonic aciduria. The enzymatic conversion of MMA to succinic acid requires vitamin B12 (adenosyl-cobalamin) as a cofactor. Serum MMA levels are also used for assessing functional vitamin B12 deficiency. Vitamin B12 is essential for neurodevelopment, particularly early in . Undiagnosed maternal vitamin B12 deficiency may be associated with adverse / outcomes, such as neural tube defects and intrauterine growth restriction. [employer] utilized Multi-Modal Decomposition (MMD) analysis to establish first and second trimester- specific MMA reference intervals in , as given below: MMA, First trimester (<13 wks gestation): 58-167 nmol/L MMA, Second trimester (13-23 wks gestation): 63-241 nmol/L This test was developed and its analytical performance characteristics have been determined by [employer]. It has not been cleared or approved by the FDA. This assay has been validated pursuant to the CLIA regulations and is used for clinical purposes. Blood PERIPHERAL BLOOD SPECIMEN / Unknown Venipuncture / Unknown 09/06/2025 11:44 AM EST 09/06/2025 1:04 PM EST Narrative [facility] - 09/09/2025 11:00 AM EST Performing Organization Information: Site ID: [email or web address] Name: [email or web address] Address: [address] [place] [phone] Director: VENANCIO RIZZO MD,PHD Jorge Piña MD LAB BLOOD ORDERABLES Final Resul t [facility] [address] [place] [address], * (ABNORMAL) Vitamin A (09/06/2025 11:44 AM EST) Retinol 16(L) 38 - 98 mcg/dL 09/10/2025 3:00 PM EST [facility] Comment: Vitamin supplementation within 24 hours prior to blood draw may affect the accuracy of the results. This test was developed and its analytical performance characteristics have been determined by [employer] [place], [place]. It has not been cleared or approved by the U.S. Food and Drug Administration. This assay has been validated pursuant to the CLIA regulations and is used for clinical purposes. Blood PERIPHERAL BLOOD SPECIMEN / Unknown Venipuncture / Unknown 09/06/2025 11:44 AM EST 09/06/2025 1:04 PM EST Narrative [facility] - 09/10/2025 3:00 PM EST Performing Organization Information: Site ID: [email or web address] Name: [email or web address] Address: [address] [place] [address] Director: VENANCIO RIZZO MD,PHD Jorge Piña MD LAB BLOOD ORDERABLES Final Resul t Performing Organization Address City/[facility]/ZIP Co de Phone Number [address] [address], * (ABNORMAL) Iron Profile (09/04/2025 4:03 AM EST) Pathologist [facility] Iron,Serum/Plasm a 22(L) 30 - 160 ug/dL 09/04/2025 8:09 AM EST [facility] Transferrin 160(L) 200 - 360 mg/dL 09/04/2025 8:09 AM EST [facility] TIBC, Calculated 208(L) 250 - 450 ug/dL 09/04/2025 8:09 AM EST [facility] Iron Saturation % 11(L) 15 - 50 % 09/04/2025 8:09 AM EST [facility] Ferritin 121 13 - 150 ng/mL 09/04/2025 8:09 AM EST [facility] Blood PERIPHERAL BLOOD SPECIMEN / Unknown Venipuncture / Unknown 09/04/2025 4:03 AM EST 09/04/2025 4:15 AM EST Jorge Piña MD LAB BLOOD ORDERABLES Final Resul t [facility] [address] [facility] [place] [address], * (ABNORMAL) hs-Troponin T (09/04/2025 4:03 AM EST) Pathologist [facility] Troponin T HS 27(H) <=19 ng/L 09/04/2025 4:56 AM EST [facility] Comment: hs-cTnT<=19 ng/L in 99% of healthy individuals. hs-cTnT values of 30, 52, 100 and 1000 ng/L correspond to approximately DONNA Gen 4 of 0.01, 0.03, 0.1 and 1 ng/mL Blood VASCULAR CATHETER / Unknown Venipuncture / Unknown 09/04/2025 4:03 AM EST 09/04/2025 4:15 AM EST us Leyda Read MD LAB BLOOD ORDERABLES F inal Result [facility] [address] [place] [address], * (ABNORMAL) Renal Function Panel (09/04/2025 4:03 AM EST) Pathologist [facility] Sodium 134(L) 135 - 147 mmol/L 09/04/2025 5:14 AM EST [facility] Potassium 4.3 3.5 - 5.4 mmol/L 09/04/2025 5:14 AM [facility] Chloride 98 96 - 108 mmol/L 09/04/2025 5:14 AM [facility] Total CO2/Bicarbonate 32 22 - 32 mmol/L 09/04/2025 5:14 AM [facility] Anion Gap 4 4 - 16 mmol/L 09/04/2025 5:14 AM [facility] BUN 21(H) 6 - 20 mg/dL 09/04/2025 5:14 AM [facility] Creatinine, Blood 0.40 0.40 - 1.10 mg/dL 09/04/2025 5:14 AM [facility] Glucose, Blood 124(H) 70 - 100 mg/dL 09/04/2025 5:14 AM [facility] Calcium 8.1(L) 8.4 - 10.3 mg/dL 09/04/2025 5:14 AM [facility] Albumin, Blood 2.4(L) 3.5 - 5.2 g/dL 09/04/2025 5:14 AM EST [facility] Phosphorus 3.0 2.7 - 4.5 mg/dL 09/04/2025 5:14 AM EST [facility] Magnesium, Blood 2.1 1.6 - 2.6 mg/dL 09/04/2025 5:14 AM EST [facility] Estimated GFR(CKD-EPI) 103 mL/min/BSA 09/04/2025 5:14 AM EST [facility] Blood PERIPHERAL BLOOD SPECIMEN / Unknown Venipuncture / Unknown 09/04/2025 4:03 AM EST 09/04/2025 4:15 AM EST Nadir Lewis MD LAB BLOOD ORDERABLES Final Res ult Performing Organization Address City/[facility] Co de Phone Number [facility] [address] [place] [address], [place] * (ABNORMAL) C-Reactive Protein (09/04/2025 4:03 AM EST) C-Reactive Protein (CRP) 53.4(H) 0.0 - 5.0 mg/L 09/04/2025 5:14 AM EST [facility] Blood PERIPHERAL BLOOD SPECIMEN / Unknown Venipuncture / Unknown 09/04/2025 4:03 AM EST 09/04/2025 4:15 AM EST Albin Puentes DO LAB BLOOD ORDERABLES Final Resul t Performing Organization Address City/[facility] Co de Phone Number [facility] [address] [facility] [place] [address], [place] * (ABNORMAL) CBC (09/04/2025 4:03 AM EST) WBC 5.78 4.00 - 10.00 K/uL 09/04/2025 4:36 AM EST [facility] AP RBC 2.89(L) 3.90 - 5.20 M/uL 09/04/2025 4:36 AM EST [facility] AP Hemoglobin 8.2(L) 11.2 - 15.7 g/dL 09/04/2025 4:36 AM EST [facility] AP Hematocrit 26.5(L) 34.0 - 45.0 % 09/04/2025 4:36 AM EST [facility] AP MCV 92 82 - 98 fL 09/04/2025 4:36 AM EST [facility] AP MCH 28.4 26.0 - 32.0 pg 09/04/2025 4:36 AM EST [facility] MCHC 30.9(L) 32.0 - 37.0 g/dL 09/04/2025 4:36 AM EST [facility] AP RDW 16.8(H) 10.5 - 15.5 % 09/04/2025 4:36 AM EST [facility] AP RDW-SD 55.7(H) 35.1 - 46.3 fL 09/04/2025 4:36 AM EST [facility] AP Platelet Count 253 150 - 400 K/uL 09/04/2025 4:36 AM EST [facility] AP Nucleated RBC 0 <=0 #/100 WBC 09/04/2025 4:36 AM EST [facility] Blood PERIPHERAL BLOOD SPECIMEN / Unknown Venipuncture / Unknown 09/04/2025 4:03 AM EST 09/04/2025 4:15 AM EST us Albin Puentes DO LAB BLOOD ORDERABLES Final Resul t [facility] AP [address] [facility] [place] [address], * ECG 12 lead (09/04/2025 3:43 AM EST) Ventricular Heart Rate 67 BPM EKG [facility] MUSE Atrial Heart Rate 67 BPM EKG [facility] UT Interval 196 ms EKG [facility] QRSD Interval 94 ms EKG [facility] QT Interval 386 ms EKG [facility] QTC Interval 407 ms EKG [facility] MUSE P [place] 63 degrees EKG [facility] MUSE R [place] 15 degrees EKG B[facility] MUSE T Wave [place] 39 degrees EKG BUR MUSE 09/04/2025 3:48 AM EST 09/04/2025 11:01 PM EST Narrative EKG B[facility] MUSE - 09/04/2025 11:01 PM EST Normal sinus rhythm Low voltage QRS throughout Borderline ECG When compared with ECG of 25-Aug-2025 14:13, premature atrial depolarizations are no longer present Procedure Note Robert Maravilla MD - 09/04/2025 Normal sinus rhythm Low voltage QRS throughout Borderline ECG When compared with ECG of 25-Aug-2025 14:13, premature atrial depolarizations are no longer present Leyda Read MD ECG ORDERABLES Final Result EKG [place] [id number] * (ABNORMAL) Renal Function Panel (09/03/2025 5:39 AM EST) Sodium 133(L) 135 - 147 mmol/L 09/03/2025 7:06 AM [facility] Potassium 4.0 3.5 - 5.4 mmol/L 09/03/2025 7:06 AM [facility] Chloride 99 96 - 108 mmol/L 09/03/2025 7:06 AM [facility] Total CO2/Bicarbonate 31 22 - 32 mmol/L 09/03/2025 7:06 AM [facility] Anion Gap 3(L) 4 - 16 mmol/L 09/03/2025 7:06 AM [facility] BUN 21(H) 6 - 20 mg/dL 09/03/2025 7:06 AM [facility] Creatinine, Blood 0.40 0.40 - 1.10 mg/dL 09/03/2025 7:06 AM [facility] Glucose, Blood 133(H) 70 - 100 mg/dL 09/03/2025 7:06 AM [facility] Calcium 8.0(L) 8.4 - 10.3 mg/dL 09/03/2025 7:06 AM [facility] Albumin, Blood 2.2(L) 3.5 - 5.2 g/dL 09/03/2025 7:06 AM EST [facility] Phosphorus 3.2 2.7 - 4.5 mg/dL 09/03/2025 7:06 AM EST [facility] Magnesium, Blood 2.0 1.6 - 2.6 mg/dL 09/03/2025 7:06 AM EST [facility] Blood PERIPHERAL BLOOD SPECIMEN / Unknown Venipuncture / Unknown 09/03/2025 5:39 AM EST 09/03/2025 6:04 AM EST us Nadir Lewis MD LAB BLOOD ORDERABLES Final Res ult Performing Organization Address City/[facility]/ZIP Co de Phone Number [facility] [address] [facility] [place] [address], * (ABNORMAL) C-Reactive Protein (09/03/2025 5:39 AM EST) C-Reactive Protein (CRP) 66.3(H) 0.0 - 5.0 mg/L 09/03/2025 7:06 AM EST [facility] Blood PERIPHERAL BLOOD SPECIMEN / Unknown Venipuncture / Unknown 09/03/2025 5:39 AM EST 09/03/2025 6:04 AM EST us Albin Puentes DO LAB BLOOD ORDERABLES Final Resul t Performing Organization Address City/[facility] Co de Phone Number [facility] [address] [facility] [place] [address], [place] * (ABNORMAL) CBC (09/03/2025 5:39 AM EST) WBC 4.60 4.00 - 10.00 K/uL 09/03/2025 6:37 AM EST [facility] AP RBC 2.65(L) 3.90 - 5.20 M/uL 09/03/2025 6:37 AM EST [facility] AP Hemoglobin 7.4(L) 11.2 - 15.7 g/dL 09/03/2025 6:37 AM EST [facility] AP Hematocrit 24.3(L) 34.0 - 45.0 % 09/03/2025 6:37 AM EST [facility] AP MCV 92 82 - 98 fL 09/03/2025 6:37 AM EST [facility] AP MCH 27.9 26.0 - 32.0 pg 09/03/2025 6:37 AM EST [facility] AP MCHC 30.5(L) 32.0 - 37.0 g/dL 09/03/2025 6:37 AM EST [facility] AP RDW 16.9(H) 10.5 - 15.5 % 09/03/2025 6:37 AM EST [facility] AP RDW-SD 54.3(H) 35.1 - 46.3 fL 09/03/2025 6:37 AM EST [facility] AP Platelet Count 265 150 - 400 K/uL 09/03/2025 6:37 AM EST [facility] AP Nucleated RBC 0 <=0 #/100 WBC 09/03/2025 6:37 AM [facility] AP Blood PERIPHERAL BLOOD SPECIMEN / Unknown Venipuncture / Unknown 09/03/2025 5:39 AM EST 09/03/2025 6:04 AM EST us Albin Puentes DO LAB BLOOD ORDERABLES Final Resul t [facility] AP [address] [place] [id number], [place] * (ABNORMAL) Renal Function Panel (09/02/2025 6:06 AM EST) Sodium 131(L) 135 - 147 mmol/L 09/02/2025 7:30 AM [facility] Potassium 3.9 3.5 - 5.4 mmol/L 09/02/2025 7:30 AM [facility] Chloride 97 96 - 108 mmol/L 09/02/2025 7:30 AM [facility] Total CO2/Bicarbonate 31 22 - 32 mmol/L 09/02/2025 7:30 AM [facility] Anion Gap 3(L) 4 - 16 mmol/L 09/02/2025 7:30 AM [facility] BUN 22(H) 6 - 20 mg/dL 09/02/2025 7:30 AM EST [facility] Creatinine, Blood 0.40 0.40 - 1.10 mg/dL 09/02/2025 7:30 AM EST [facility] Glucose, Blood 106(H) 70 - 100 mg/dL 09/02/2025 7:30 AM EST [facility] Calcium 8.0(L) 8.4 - 10.3 mg/dL 09/02/2025 7:30 AM EST [facility] Albumin, Blood 2.3(L) 3.5 - 5.2 g/dL 09/02/2025 7:30 AM EST [facility] Phosphorus 3.1 2.7 - 4.5 mg/dL 09/02/2025 7:30 AM EST [facility] Magnesium, Blood 2.1 1.6 - 2.6 mg/dL 09/02/2025 7:30 AM EST [facility] Blood PERIPHERAL BLOOD SPECIMEN / Unknown Venipuncture / Unknown 09/02/2025 6:06 AM EST 09/02/2025 6:26 AM EST us Nadir Lewis MD LAB BLOOD ORDERABLES Final Res ult Performing Organization Address City/[facility]/ZIP Co de Phone Number [facility] [address] [place] [address], [place] * (ABNORMAL) C-Reactive Protein (09/02/2025 6:06 AM EST) C-Reactive Protein (CRP) 65.7(H) 0.0 - 5.0 mg/L 09/02/2025 7:30 AM EST [facility] Blood PERIPHERAL BLOOD SPECIMEN / Unknown Venipuncture / Unknown 09/02/2025 6:06 AM EST 09/02/2025 6:26 AM EST us Albin Puentes DO LAB BLOOD ORDERABLES Final Resul t Performing Organization Address City/[facility]/ZIP Co de Phone Number [facility] [address] [place] [address], [place] * (ABNORMAL) CBC (09/02/2025 6:06 AM EST) WBC 5.48 4.00 - 10.00 K/uL 09/02/2025 6:58 AM EST [facility] AP RBC 2.75(L) 3.90 - 5.20 M/uL 09/02/2025 6:58 AM [facility] Hemoglobin 7.7(L) 11.2 - 15.7 g/dL 09/02/2025 6:58 AM EST [facility] AP Hematocrit 25.0(L) 34.0 - 45.0 % 09/02/2025 6:58 AM [facility] AP MCV 91 82 - 98 fL 09/02/2025 6:58 AM [facility] AP MCH 28.0 26.0 - 32.0 pg 09/02/2025 6:58 AM [facility] AP MCHC 30.8(L) 32.0 - 37.0 g/dL 09/02/2025 6:58 AM [facility] AP RDW 16.5(H) 10.5 - 15.5 % 09/02/2025 6:58 AM [facility] AP RDW-SD 53.1(H) 35.1 - 46.3 fL 09/02/2025 6:58 AM [facility] AP Platelet Count 271 150 - 400 K/uL 09/02/2025 6:58 AM [facility] AP Nucleated RBC 0 <=0 #/100 WBC 09/02/2025 6:58 AM [facility] Blood PERIPHERAL BLOOD SPECIMEN / Unknown Venipuncture / Unknown 09/02/2025 6:06 AM EST 09/02/2025 6:26 AM EST us Albin Puentes DO LAB BLOOD ORDERABLES Final Resul t [facility] AP [address] [place] [address], [place] * (ABNORMAL) Renal Function Panel (09/01/2025 5:36 AM EST) Sodium 133(L) 135 - 147 mmol/L 09/01/2025 7:43 AM EST [facility] Potassium 4.2 3.5 - 5.4 mmol/L 09/01/2025 7:43 AM [facility] Chloride 96 96 - 108 mmol/L 09/01/2025 7:43 AM [facility] Total CO2/Bicarbonate 32 22 - 32 mmol/L 09/01/2025 7:43 AM [facility] Anion Gap 5 4 - 16 mmol/L 09/01/2025 7:43 AM [facility] BUN 21(H) 6 - 20 mg/dL 09/01/2025 7:43 AM [facility] Creatinine, Blood 0.50 0.40 - 1.10 mg/dL 09/01/2025 7:43 AM [facility] Glucose, Blood 106(H) 70 - 100 mg/dL 09/01/2025 7:43 AM [facility] Calcium 8.2(L) 8.4 - 10.3 mg/dL 09/01/2025 7:43 AM [facility] Albumin, Blood 2.3(L) 3.5 - 5.2 g/dL 09/01/2025 7:43 AM [facility] Phosphorus 3.5 2.7 - 4.5 mg/dL 09/01/2025 7:43 AM [facility] Magnesium, Blood 2.2 1.6 - 2.6 mg/dL 09/01/2025 7:43 AM [facility] Blood PERIPHERAL BLOOD SPECIMEN / Unknown Venipuncture / Unknown 09/01/2025 5:36 AM EST 09/01/2025 7:01 AM EST us Nadir Lewis MD LAB BLOOD ORDERABLES Final Res ult [facility] [address] [facility] [place] [address], * (ABNORMAL) C-Reactive Protein (09/01/2025 5:36 AM EST) C-Reactive Protein (CRP) 73.0(H) 0.0 - 5.0 mg/L 09/01/2025 7:54 AM [facility] Blood PERIPHERAL BLOOD SPECIMEN / Unknown Venipuncture / Unknown 09/01/2025 5:36 AM EST 09/01/2025 7:01 AM EST us Albin Puentes DO LAB BLOOD ORDERABLES Final Resul t [facility] [address] [place] [id number], * (ABNORMAL) CBC (09/01/2025 5:36 AM EST) WBC 5.40 4.00 - 10.00 K/uL 09/01/2025 7:27 AM [facility] AP RBC 2.80(L) 3.90 - 5.20 M/uL 09/01/2025 7:27 AM [facility] AP Hemoglobin 7.8(L) 11.2 - 15.7 g/dL 09/01/2025 7:27 AM [facility] AP Hematocrit 25.4(L) 34.0 - 45.0 % 09/01/2025 7:27 AM [facility] AP MCV 91 82 - 98 fL 09/01/2025 7:27 AM [facility] AP MCH 27.9 26.0 - 32.0 pg 09/01/2025 7:27 AM [facility] AP MCHC 30.7(L) 32.0 - 37.0 g/dL 09/01/2025 7:27 AM [facility] AP RDW 16.3(H) 10.5 - 15.5 % 09/01/2025 7:27 AM [facility] AP RDW-SD 53.1(H) 35.1 - 46.3 fL 09/01/2025 7:27 AM [facility] AP Platelet Count 288 150 - 400 K/uL 09/01/2025 7:27 AM [facility] AP Nucleated RBC 0 <=0 #/100 WBC 09/01/2025 7:27 AM [facility] AP Blood PERIPHERAL BLOOD SPECIMEN / Unknown Venipuncture / Unknown 09/01/2025 5:36 AM EST 09/01/2025 7:01 AM EST us Albin Puentes DO LAB BLOOD ORDERABLES Final Resul t [facility] AP [address] [place] [address], [place] * (ABNORMAL) Renal Function Panel (08/31/2025 5:44 AM EST) Sodium 131(L) 135 - 147 mmol/L 08/31/2025 6:33 AM EST [facility] Potassium 4.2 3.5 - 5.4 mmol/L 08/31/2025 6:33 AM EST [facility] Chloride 96 96 - 108 mmol/L 08/31/2025 6:33 AM EST [facility] Total CO2/Bicarbonate 31 22 - 32 mmol/L 08/31/2025 6:33 AM EST [facility] Anion Gap 4 4 - 16 mmol/L 08/31/2025 6:33 AM EST [facility] BUN 16 6 - 20 mg/dL 08/31/2025 6:33 AM EST [facility] Creatinine, Blood 0.40 0.40 - 1.10 mg/dL 08/31/2025 6:33 AM EST [facility] Glucose, Blood 114(H) 70 - 100 mg/dL 08/31/2025 6:33 AM EST [facility] Calcium 7.8(L) 8.4 - 10.3 mg/dL 08/31/2025 6:33 AM EST [facility] Albumin, Blood 2.1(L) 3.5 - 5.2 g/dL 08/31/2025 6:33 AM EST [facility] Phosphorus 2.9 2.7 - 4.5 mg/dL 08/31/2025 6:33 AM EST [facility] Magnesium, Blood 1.9 1.6 - 2.6 mg/dL 08/31/2025 6:33 AM EST [facility] Blood VASCULAR CATHETER / Unknown Line / Unknown 08/31/2025 5:44 AM EST 08/31/2025 5:51 AM EST us Nadir Lewis MD LAB BLOOD ORDERABLES Final Res ult [facility] [address] [facility] [place] [address], [place] * (ABNORMAL) C-Reactive Protein (08/31/2025 5:44 AM EST) C-Reactive Protein (CRP) 85.4(H) 0.0 - 5.0 mg/L 08/31/2025 6:42 AM EST [facility] Blood VASCULAR CATHETER / Unknown Line / Unknown 08/31/2025 5:44 AM EST 08/31/2025 5:51 AM EST us Albin Puentes DO LAB BLOOD ORDERABLES Final Resul t Performing Organization Address City/[facility]/ZIP Co de Phone Number [facility] [address] [place] [address], [place] * (ABNORMAL) CBC (08/31/2025 5:44 AM EST) Pathologist [facility] WBC 5.00 4.00 - 10.00 K/uL 08/31/2025 5:57 AM EST [facility] AP RBC 2.63(L) 3.90 - 5.20 M/uL 08/31/2025 5:57 AM [facility] AP Hemoglobin 7.3(L) 11.2 - 15.7 g/dL 08/31/2025 5:57 AM EST [facility] AP Hematocrit 23.6(L) 34.0 - 45.0 % 08/31/2025 5:57 AM [facility] AP MCV 90 82 - 98 fL 08/31/2025 5:57 AM EST [facility] AP MCH 27.8 26.0 - 32.0 pg 08/31/2025 5:57 AM EST [facility] AP MCHC 30.9(L) 32.0 - 37.0 g/dL 08/31/2025 5:57 AM [facility] AP RDW 16.0(H) 10.5 - 15.5 % 08/31/2025 5:57 AM [facility] AP RDW-SD 51.7(H) 35.1 - 46.3 fL 08/31/2025 5:57 AM EST [facility] AP Platelet Count 261 150 - 400 K/uL 08/31/2025 5:57 AM EST [facility] AP Nucleated RBC 0 <=0 #/100 WBC 08/31/2025 5:57 AM EST [facility] AP Blood VASCULAR CATHETER / Unknown Line / Unknown 08/31/2025 5:44 AM EST 08/31/2025 5:51 AM EST us Albin Puentes DO LAB BLOOD ORDERABLES Final Resul t [facility] [address] [place] [address], [place] * (ABNORMAL) CBC (08/30/2025 5:30 AM EST) WBC 5.80 4.00 - 10.00 K/uL 08/30/2025 5:51 AM EST [facility] AP RBC 2.73(L) 3.90 - 5.20 M/uL 08/30/2025 5:51 AM EST [facility] AP Hemoglobin 7.6(L) 11.2 - 15.7 g/dL 08/30/2025 5:51 AM EST [facility] AP Hematocrit 24.4(L) 34.0 - 45.0 % 08/30/2025 5:51 AM EST [facility] AP MCV 89 82 - 98 fL 08/30/2025 5:51 AM EST [facility] AP MCH 27.8 26.0 - 32.0 pg 08/30/2025 5:51 AM EST [facility] AP MCHC 31.1(L) 32.0 - 37.0 g/dL 08/30/2025 5:51 AM EST [facility] AP RDW 15.8(H) 10.5 - 15.5 % 08/30/2025 5:51 AM EST [facility] AP RDW-SD 51.3(H) 35.1 - 46.3 fL 08/30/2025 5:51 AM EST [facility] AP Platelet Count 261 150 - 400 K/uL 08/30/2025 5:51 AM EST [facility] AP Nucleated RBC 0 <=0 #/100 WBC 08/30/2025 5:51 AM EST [facility] AP Blood PERIPHERAL BLOOD SPECIMEN / Unknown Venipuncture / Unknown 08/30/2025 5:30 AM EST 08/30/2025 5:41 AM EST us Albin Puentes DO LAB BLOOD ORDERABLES Final Resul t [facility] AP [address] [place] [address], [place] * (ABNORMAL) Renal Function Panel (08/30/2025 5:28 AM EST) Sodium 131(L) 135 - 147 mmol/L 08/30/2025 6:26 AM EST [facility] Potassium 4.0 3.5 - 5.4 mmol/L 08/30/2025 6:26 AM [facility] Chloride 95(L) 96 - 108 mmol/L 08/30/2025 6:26 AM [facility] Total CO2/Bicarbonate 31 22 - 32 mmol/L 08/30/2025 6:26 AM [facility] Anion Gap 5 4 - 16 mmol/L 08/30/2025 6:26 AM [facility] BUN 20 6 - 20 mg/dL 08/30/2025 6:26 AM [facility] Creatinine, Blood 0.40 0.40 - 1.10 mg/dL 08/30/2025 6:26 AM [facility] Glucose, Blood 132(H) 70 - 100 mg/dL 08/30/2025 6:26 AM [facility] Calcium 7.9(L) 8.4 - 10.3 mg/dL 08/30/2025 6:26 AM [facility] Albumin, Blood 2.3(L) 3.5 - 5.2 g/dL 08/30/2025 6:26 AM [facility] Phosphorus 2.8 2.7 - 4.5 mg/dL 08/30/2025 6:26 AM [facility] Magnesium, Blood 2.1 1.6 - 2.6 mg/dL 08/30/2025 6:26 AM EST [facility] Blood PERIPHERAL BLOOD SPECIMEN / Unknown Venipuncture / Unknown 08/30/2025 5:28 AM EST 08/30/2025 6:09 AM EST us Nadir Lewis MD LAB BLOOD ORDERABLES Final Res ult Performing Organization Address [facility]/ZIP Co de Phone Number [facility] [address] [facility] [place] [address], [place] * (ABNORMAL) C-Reactive Protein (08/30/2025 5:28 AM EST) C-Reactive Protein (CRP) 113.0(H) 0.0 - 5.0 mg/L 08/30/2025 6:38 AM EST [facility] Blood PERIPHERAL BLOOD SPECIMEN / Unknown Venipuncture / Unknown 08/30/2025 5:28 AM EST 08/30/2025 6:09 AM EST us Albin Puentes DO LAB BLOOD ORDERABLES Final Resul t Performing Organization Address [facility] Phone Number [facility] [address] [facility] [place] [address], [place] * (ABNORMAL) Vitamin D, 25-OH (08/29/2025 6:24 AM EST) Vitamin D 25-OH Level 17(L) 30 - 60 ng/mL 08/29/2025 5:55 PM EST [facility] Blood PERIPHERAL BLOOD SPECIMEN / Unknown Venipuncture / Unknown 08/29/2025 6:24 AM EST 08/29/2025 6:29 AM EST us Eloy Gomez MD LAB BLOOD ORDERABLES Final R esult Performing Organization Address [facility] Co de Phone Number [facility] [address] [facility] [place] [address], [place] * (ABNORMAL) Renal Function Panel (08/29/2025 6:24 AM EST) Sodium 131(L) 135 - 147 mmol/L 08/29/2025 7:14 AM EST [facility] Potassium 3.7 3.5 - 5.4 mmol/L 08/29/2025 7:14 AM EST [facility] Chloride 95(L) 96 - 108 mmol/L 08/29/2025 7:14 AM EST [facility] Total CO2/Bicarbonate 33(H) 22 - 32 mmol/L 08/29/2025 7:14 AM EST [facility] Anion Gap 3(L) 4 - 16 mmol/L 08/29/2025 7:14 AM EST [facility] BUN 21(H) 6 - 20 mg/dL 08/29/2025 7:14 AM EST [facility] Creatinine, Blood 0.40 0.40 - 1.10 mg/dL 08/29/2025 7:14 AM EST [facility] Glucose, Blood 112(H) 70 - 100 mg/dL 08/29/2025 7:14 AM EST [facility] Calcium 7.8(L) 8.4 - 10.3 mg/dL 08/29/2025 7:14 AM EST [facility] Albumin, Blood 2.2(L) 3.5 - 5.2 g/dL 08/29/2025 7:14 AM EST [facility] Phosphorus 2.8 2.7 - 4.5 mg/dL 08/29/2025 7:14 AM EST [facility] Magnesium, Blood 2.0 1.6 - 2.6 mg/dL 08/29/2025 7:14 AM EST [facility] Blood PERIPHERAL BLOOD SPECIMEN / Unknown Venipuncture / Unknown 08/29/2025 6:24 AM EST 08/29/2025 6:29 AM EST us Nadir Lewis MD LAB BLOOD ORDERABLES Final Res ult [facility] [address] [facility] [address] [place] [address], * (ABNORMAL) C-Reactive Protein (08/29/2025 6:24 AM EST) Pathologist [facility] C-Reactive Protein (CRP) 106.0(H) 0.0 - 5.0 mg/L 08/29/2025 7:30 AM EST [facility] Blood PERIPHERAL BLOOD SPECIMEN / Unknown Venipuncture / Unknown 08/29/2025 6:24 AM EST 08/29/2025 6:29 AM EST Albin Puentes DO LAB BLOOD ORDERABLES Final Resul t [facility] [address] [facility] [place] [address], * (ABNORMAL) CBC (08/29/2025 6:24 AM EST) Pathologist [facility] WBC 6.35 4.00 - 10.00 K/uL 08/29/2025 6:36 AM [facility] AP RBC 2.60(L) 3.90 - 5.20 M/uL 08/29/2025 6:36 AM [facility] AP Hemoglobin 7.3(L) 11.2 - 15.7 g/dL 08/29/2025 6:36 AM [facility] AP Hematocrit 23.1(L) 34.0 - 45.0 % 08/29/2025 6:36 AM [facility] AP MCV 89 82 - 98 fL 08/29/2025 6:36 AM [facility] AP MCH 28.1 26.0 - 32.0 pg 08/29/2025 6:36 AM [facility] AP MCHC 31.6(L) 32.0 - 37.0 g/dL 08/29/2025 6:36 AM [facility] AP RDW 15.4 10.5 - 15.5 % 08/29/2025 6:36 AM [facility] AP RDW-SD 49.5(H) 35.1 - 46.3 fL 08/29/2025 6:36 AM [facility] AP Platelet Count 245 150 - 400 K/uL 08/29/2025 6:36 AM [facility] AP Nucleated RBC 0 <=0 #/100 WBC 08/29/2025 6:36 AM EST [facility] AP Blood PERIPHERAL BLOOD SPECIMEN / Unknown Venipuncture / Unknown 08/29/2025 6:24 AM EST 08/29/2025 6:29 AM EST us Albin Puentes DO LAB BLOOD ORDERABLES Final Resul t [facility] AP [address] [place] [address], [place] * XR Chest 1 VW Portable (08/28/2025 3:47 PM EST) Anatomical Region Laterality Modality Chest Digital Radiogra phy 08/28/2025 4:04 PM EST Impressions 08/28/2025 4:02 PM EST Retrocardiac and right basilar opacifications appear grossly similar and are better assessed by the recent chest CT. Diffuse reticular opacities are also better assessed by the previous chest CT, probably representing extensive emphysema. Superimposed inflammation is possible. Otherwise no significant interval change in the appearance of the chest. Kristopher Hickey MD, electronically signed on Aug 28 2025 04:02PM Narrative 08/28/2025 4:02 PM EST EXAMINATION: XR CHEST 1 VW PORTABLE INDICATION: incidentally noted LLL consolidation; TECHNIQUE: Chest portable AP COMPARISON: Multiple prior studies, most recent chest radiograph dated 08/23/2025. Procedure Note Kristopher Hickey MD - 08/28/2025 EXAMINATION: XR CHEST 1 VW PORTABLE INDICATION: incidentally noted LLL consolidation; TECHNIQUE: Chest portable AP COMPARISON: Multiple prior studies, most recent chest radiograph dated 08/23/2025. IMPRESSION: Retrocardiac and right basilar opacifications appear grossly similar and are better assessed by the recent chest CT. Diffuse reticular opacities are also better assessed by the previous chest CT, probably representing extensive emphysema. Superimposed inflammation is possible. Otherwise no significant interval change in the appearance of the chest. Kristopher Hickey MD, electronically signed on Aug 28 2025 04:02PM us Nadir Lewis MD IMG DIAGNOSTIC IMAGING ORDERAB LES Final Result * XR Humerus 2+ VW Right (08/28/2025 3:47 PM EST) Anatomical Region Laterality Modality Arm Right Digital Radiogra phy 08/28/2025 5:22 PM EST Impressions 09/01/2025 11:10 AM EST 1. Diffuse osteopenia. 2. No right humeral fracture detected on these views. 3. Again seen is the right humeral hemiarthroplasty, with anterior subcoracoid dislocation of the right humeral head with respect to the glenoid. If there remains clinical concern for nerve compression, consider MRI for further evaluation. BY ELECTRONICALLY SIGNING THIS REPORT, I THE ATTENDING PHYSICIAN ATTEST THAT I HAVE REVIEWED THE IMAGES FOR THE ABOVE PROCEDURE(S) AND AGREE WITH THE FINDINGS DOCUMENTED. Sunni Mercado MD, electronically signed on Sep 01 2025 11:10AM Narrative 09/01/2025 11:10 AM EST EXAMINATION: XR HUMERUS 2+ VW RIGHT INDICATION: c/f R humerus pathology given r wrist drop; TECHNIQUE: Frontal view radiographs of the right humerus. COMPARISON: Radiographs of the right shoulder from 19 August 2025. FINDINGS: There is diffuse osteopenia. At the right shoulder, again seen is a right humeral arthroplasty. There is persistent anterior/subcoracoid dislocation of the right humeral head component relative to the glenoid. No obvious loosening or displacement of the humeral prosthesis is suggested on these images. Distal to the prosthesis, the right humerus is intact and no lucent or sclerotic fracture line or displaced fracture fragment is detected in the humerus. No obvious focal lytic or sclerotic bone lesion detected in the right humerus. No bony exostosis. No soft tissue calcification or unexpected radiopaque foreign body. Assessment of the right elbow joint is limited, but right elbow appears congruent, probably with mild changes of osteoarthritis. Again seen are coarsened lung markings in the included portion of the right lung. Procedure Note Nayana Mercado MD - 09/01/2025 EXAMINATION: XR HUMERUS 2+ VW RIGHT INDICATION: c/f R humerus pathology given r wrist drop; TECHNIQUE: Frontal view radiographs of the right humerus. COMPARISON: Radiographs of the right shoulder from 19 August 2025. FINDINGS: There is diffuse osteopenia. At the right shoulder, again seen is a right humeral arthroplasty. There is persistent anterior/subcoracoid dislocation of the right humeral head component relative to the glenoid. No obvious loosening or displacement of the humeral prosthesis is suggested on these images. Distal to the prosthesis, the right humerus is intact and no lucent or sclerotic fracture line or displaced fracture fragment is detected in the humerus. No obvious focal lytic or sclerotic bone lesion detected in the right humerus. No bony exostosis. No soft tissue calcification or unexpected radiopaque foreign body. Assessment of the right elbow joint is limited, but right elbow appears congruent, probably with mild changes of osteoarthritis. Again seen are coarsened lung markings in the included portion of the right lung. IMPRESSION: 1. Diffuse osteopenia. 2. No right humeral fracture detected on these views. 3. Again seen is the right humeral hemiarthroplasty, with anterior subcoracoid dislocation of the right humeral head with respect to the glenoid. If there remains clinical concern for nerve compression, consider MRI for further evaluation. BY ELECTRONICALLY SIGNING THIS REPORT, I THE ATTENDING PHYSICIAN ATTEST THAT I HAVE REVIEWED THE IMAGES FOR THE ABOVE PROCEDURE(S) AND AGREE WITH THE FINDINGS DOCUMENTED. Sunni Mercado MD, electronically signed on Sep 01 2025 11:10AM us Nadir Lewis MD IMG DIAGNOSTIC IMAGING ORDERAB LES Final Result * XR Shoulder 2+ VW Left (08/28/2025 10:56 AM EST) Anatomical Region Laterality Modality Shoulder Left Computed Radiogr aphy 08/28/2025 3:30 PM EST Narrative 08/29/2025 3:22 PM EST EXAMINATION: XR SHOULDER 2+ VW LEFT INDICATION: pt with known L proximal humerus comminuted fracture with significant edema + continued pain, XR for worsening of fracture; TECHNIQUE: Frontal and Grashey view radiographs of the left shoulder. COMPARISON: Radiographs of the left shoulder from 19 August 2025. FINDINGS: Partially-imaged left-sided dual lead cardiac device noted. Again seen is the comminuted and impacted fracture of the left proximal humerus involving the humeral head and surgical neck. Fracture lines remain visible, though with interval callus formation. No evidence of acromioclavicular or glenohumeral joint dislocation. No new fracture detected. Probable diffuse osteopenia. Left lower lung opacity seen on frontal and oblique views. This appears more pronounced than on the 19 August 2025 left shoulder radiographs. Recommend further evaluation with dedicated chest x-ray. Surgical sutures noted in the left lung. RECOMMENDATION(S): Chest x-ray. NOTIFICATION: The findingsand recommendations above were discussed with, and acknowledged by Dr. Mayra Craft by Dr. Sunni Pham, using [email or web address] Chat on 08/28/2025 at 3:24 pm, 2 minutes after discovery of the findings. BY ELECTRONICALLY SIGNING THIS REPORT, I THE ATTENDING PHYSICIAN ATTEST THAT I HAVE REVIEWED THE IMAGES FOR THE ABOVE PROCEDURE(S) AND AGREE WITH THE FINDINGS DOCUMENTED. Sunni Mercado MD, electronically signed on Aug 29 2025 03:22PM Procedure Note Nayana Mercado MD - 08/29/2025 EXAMINATION: XR SHOULDER 2+ VW LEFT INDICATION: pt with known L proximal humerus comminuted fracture with significant edema + continued pain, XR for worsening of fracture; TECHNIQUE: Frontal and Grashey view radiographs of the left shoulder. COMPARISON: Radiographs of the left shoulder from 19 August 2025. FINDINGS: Partially-imaged left-sided dual lead cardiac device noted. Again seen is the comminuted and impacted fracture of the left proximal humerus involving the humeral head and surgical neck. Fracture lines remain visible, though with interval callus formation. No evidence of acromioclavicular or glenohumeral joint dislocation. No new fracture detected. Probable diffuse osteopenia. Left lower lung opacity seen on frontal and oblique views. This appears more pronounced than on the 19 August 2025 left shoulder radiographs. Recommend further evaluation with dedicated chest x-ray. Surgical sutures noted in the left lung. RECOMMENDATION(S): Chest x-ray. NOTIFICATION: The findingsand recommendations above were discussed with, and acknowledged by Dr. Mayra Craft by Dr. Sunni Pham, using [email or web address] Chat on 08/28/2025 at 3:24 pm, 2 minutes after discovery of the findings. BY ELECTRONICALLY SIGNING THIS REPORT, I THE ATTENDING PHYSICIAN ATTEST THAT I HAVE REVIEWED THE IMAGES FOR THE ABOVE PROCEDURE(S) AND AGREE WITH THE FINDINGS DOCUMENTED. Sunni Mercado MD, electronically signed on Aug 29 2025 03:22PM Nadir Lewis MD IMG DIAGNOSTIC IMAGING ORDERAB LES Final Result * (ABNORMAL) Renal Function Panel (08/28/2025 5:36 AM EST) Sodium 131(L) 135 - 147 mmol/L 08/28/2025 6:47 AM EST [facility] Potassium 4.2 3.5 - 5.4 mmol/L 08/28/2025 6:47 AM EST [facility] Chloride 95(L) 96 - 108 mmol/L 08/28/2025 6:47 AM EST [facility] Total CO2/Bicarbonate 32 22 - 32 mmol/L 08/28/2025 6:47 AM EST [facility] Anion Gap 4 4 - 16 mmol/L 08/28/2025 6:47 AM EST [facility] BUN 15 6 - 20 mg/dL 08/28/2025 6:47 AM [facility] Creatinine, Blood 0.40 0.40 - 1.10 mg/dL 08/28/2025 6:47 AM EST [facility] Glucose, Blood 99 70 - 100 mg/dL 08/28/2025 6:47 AM EST [facility] Calcium 8.2(L) 8.4 - 10.3 mg/dL 08/28/2025 6:47 AM EST [facility] Albumin, Blood 2.5(L) 3.5 - 5.2 g/dL 08/28/2025 6:47 AM [facility] Phosphorus 3.3 2.7 - 4.5 mg/dL 08/28/2025 6:47 AM EST [facility] Magnesium, Blood 2.0 1.6 - 2.6 mg/dL 08/28/2025 6:47 AM [facility] Blood VASCULAR CATHETER / Unknown Line / Unknown 08/28/2025 5:36 AM EST 08/28/2025 5:50 AM EST us Nadir Lewis MD LAB BLOOD ORDERABLES Final Res ult [facility] [address] [place] [address], * (ABNORMAL) C-Reactive Protein (08/28/2025 5:36 AM EST) Pathologist [facility] C-Reactive Protein (CRP) 104.0(H) 0.0 - 5.0 mg/L 08/28/2025 6:48 AM [facility] Blood VASCULAR CATHETER / Unknown Line / Unknown 08/28/2025 5:36 AM EST 08/28/2025 5:50 AM EST us Albin Puentes DO LAB BLOOD ORDERABLES Final Resul t [facility] [address] [place] [address], * (ABNORMAL) CBC (08/28/2025 5:36 AM EST) WBC 6.65 4.00 - 10.00 K/uL 08/28/2025 6:01 AM [facility] AP RBC 2.98(L) 3.90 - 5.20 M/uL 08/28/2025 6:01 AM [facility] AP Hemoglobin 8.3(L) 11.2 - 15.7 g/dL 08/28/2025 6:01 AM [facility] AP Hematocrit 27.0(L) 34.0 - 45.0 % 08/28/2025 6:01 AM [facility] AP MCV 91 82 - 98 fL 08/28/2025 6:01 AM [facility] MCH 27.9 26.0 - 32.0 pg 08/28/2025 6:01 AM [facility] AP MCHC 30.7(L) 32.0 - 37.0 g/dL 08/28/2025 6:01 AM [facility] AP RDW 15.1 10.5 - 15.5 % 08/28/2025 6:01 AM [facility] AP RDW-SD 49.3(H) 35.1 - 46.3 fL 08/28/2025 6:01 AM [facility] AP Platelet Count 268 150 - 400 K/uL 08/28/2025 6:01 AM [facility] AP Nucleated RBC 0 <=0 #/100 WBC 08/28/2025 6:01 AM EST [facility] AP Blood VASCULAR CATHETER / Unknown Line / Unknown 08/28/2025 5:36 AM EST 08/28/2025 5:51 AM EST us Albin Puentes DO LAB BLOOD ORDERABLES Final Resul t [facility] AP [address] [place] [address], [place] * IR Temporary Access Catheter Placement (08/27/2025 1:36 PM EST) Anatomical Region Laterality Modality X-Ray Angiograph y 08/27/2025 1:46 PM EST Impressions 08/27/2025 1:44 PM EST Successful placement of a 7 Fr 16 cm triple-lumen temporary central venous catheter via the right internal jugular venous approach. The tip of the catheter terminates in the distal superior vena cava. The catheter is ready for use. Sammi Mckeon MD, electronically signed on Aug 27 2025 01:44PM Narrative 08/27/2025 1:44 PM EST INDICATION: Inability to obtain or maintain peripheral venous access COMPARISON: None. TECHNIQUE: OPERATORS: Dr. Mckeon, attending interventional radiologist performed the procedure. ANESTHESIA: Local only Fluoro time 15 seconds Radiation Dose: <1 mGY PROCEDURE: PROCEDURE DETAILS: Following the explanation of the risks, benefits and alternatives to the procedure, written informed consent was obtained from the patient. The patient was then brought to the angiography suite and placed supine on the exam table. A pre-procedure time-out was performed per [facility] protocol. The right neck was prepped and draped in the usual sterile fashion. Under continuous ultrasound guidance, the patent right internal jugular vein was compressible and accessed using a micropuncture needle. Permanent ultrasound images were obtained before and after intravenous access, which confirmed vein patency. Subsequently a Nitinol wire was passed into the IVC using fluoroscopic guidance. The needle was exchanged for a micropuncture sheath. The Nitinol wire was removed and an 0.035 wire was advanced into the IVC. A triple lumen central catheter was advanced over the wire into the superior vena cava with the tip in the cavoatrial junction. All 3 access ports were aspirated, flushed and capped. The catheter was secured to the skin with a 0 silk suture and sterile dressings were applied. Final spot fluoroscopic image demonstrating good alignment of the catheter and no kinking. The patient tolerated the procedure well without immediate complications. FINDINGS: Patent right internal jugular vein. Final fluoroscopic image showing the catheter tip terminating in the distal superior vena cava. Procedure Note Sammi Mckeon MD - 08/27/2025 INDICATION: Inability to obtain or maintain peripheral venous access COMPARISON: None. TECHNIQUE: OPERATORS: Dr. Mckeon, attending interventional radiologist performed the procedure. ANESTHESIA: Local only Fluoro time 15 seconds Radiation Dose: <1 mGY PROCEDURE: PROCEDURE DETAILS: Following the explanation of the risks, benefits and alternatives to the procedure, written informed consent was obtained from the patient. The patient was then brought to the angiography suite and placed supine on the exam table. A pre-procedure time-out was performed per [facility] protocol. The right neck was prepped and draped in the usual sterile fashion. Under continuous ultrasound guidance, the patent right internal jugular vein was compressible and accessed using a micropuncture needle. Permanent ultrasound images were obtained before and after intravenous access, which confirmed vein patency. Subsequently a Nitinol wire was passed into the IVC using fluoroscopic guidance. The needle was exchanged for a micropuncture sheath. The Nitinol wire was removed and an 0.035 wire was advanced into the IVC. A triple lumen central catheter was advanced over the wire into the superior vena cava with the tip in the cavoatrial junction. All 3 access ports were aspirated, flushed and capped. The catheter was secured to the skin with a 0 silk suture and sterile dressings were applied. Final spot fluoroscopic image demonstrating good alignment of the catheter and no kinking. The patient tolerated the procedure well without immediate complications. FINDINGS: Patent right internal jugular vein. Final fluoroscopic image showing the catheter tip terminating in the distal superior vena cava. IMPRESSION: Successful placement of a 7 Fr 16 cm triple-lumen temporary central venous catheter via the right internal jugular venous approach. The tip of the catheter terminates in the distal superior vena cava. The catheter is ready for use. Sammi Mckeon MD, electronically signed on Aug 27 2025 01:44PM us Nadir Lewis MD IMG IR ORDERABLES Final Result * (ABNORMAL) CBC (08/27/2025 8:18 AM EST) WBC 6.69 4.00 - 10.00 K/uL 08/27/2025 8:49 AM EST [facility] AP RBC 2.98(L) 3.90 - 5.20 M/uL 08/27/2025 8:49 AM EST [facility] AP Hemoglobin 8.3(L) 11.2 - 15.7 g/dL 08/27/2025 8:49 AM EST [facility] AP Hematocrit 26.4(L) 34.0 - 45.0 % 08/27/2025 8:49 AM EST [facility] AP MCV 89 82 - 98 fL 08/27/2025 8:49 AM EST [facility] AP MCH 27.9 26.0 - 32.0 pg 08/27/2025 8:49 AM EST [facility] AP MCHC 31.4(L) 32.0 - 37.0 g/dL 08/27/2025 8:49 AM [facility] AP RDW 15.0 10.5 - 15.5 % 08/27/2025 8:49 AM EST [facility] AP RDW-SD 48.1(H) 35.1 - 46.3 fL 08/27/2025 8:49 AM [facility] AP Platelet Count 270 150 - 400 K/uL 08/27/2025 8:49 AM EST [facility] AP Nucleated RBC 0 <=0 #/100 WBC 08/27/2025 8:49 AM [facility] AP Blood PERIPHERAL BLOOD SPECIMEN / Unknown Venipuncture / Unknown 08/27/2025 8:18 AM EST 08/27/2025 8:24 AM EST us Albin Puentes DO LAB BLOOD ORDERABLES Final Resul t [facility] AP [address] [place] [address], * (ABNORMAL) Renal Function Panel (08/27/2025 8:17 AM EST) Sodium 130(L) 135 - 147 mmol/L 08/27/2025 9:06 AM EST [facility] Potassium 4.2 3.5 - 5.4 mmol/L 08/27/2025 9:06 AM [facility] Chloride 95(L) 96 - 108 mmol/L 08/27/2025 9:06 AM [facility] Total CO2/Bicarbonate 32 22 - 32 mmol/L 08/27/2025 9:06 AM EST [facility] Anion Gap 3(L) 4 - 16 mmol/L 08/27/2025 9:06 AM EST [facility] BUN 14 6 - 20 mg/dL 08/27/2025 9:06 AM [facility] Creatinine, Blood 0.30(L) 0.40 - 1.10 mg/dL 08/27/2025 9:06 AM [facility] Glucose, Blood 110(H) 70 - 100 mg/dL 08/27/2025 9:06 AM [facility] Calcium 8.4 8.4 - 10.3 mg/dL 08/27/2025 9:06 AM [facility] Albumin, Blood 2.4(L) 3.5 - 5.2 g/dL 08/27/2025 9:06 AM [facility] Phosphorus 3.1 2.7 - 4.5 mg/dL 08/27/2025 9:06 AM [facility] Magnesium, Blood 2.0 1.6 - 2.6 mg/dL 08/27/2025 9:06 AM [facility] Estimated GFR(CKD-EPI) 110 mL/min/BSA 08/27/2025 9:06 AM [facility] Blood PERIPHERAL BLOOD SPECIMEN / Unknown Venipuncture / Unknown 08/27/2025 8:17 AM EST 08/27/2025 8:24 AM EST us Nadir Lewis MD LAB BLOOD ORDERABLES Final Res ult [facility] [address] [place] [address], [place] * (ABNORMAL) C-Reactive Protein (08/27/2025 8:17 AM EST) C-Reactive Protein (CRP) 99.7(H) 0.0 - 5.0 mg/L 08/27/2025 9:29 AM EST [facility] Blood PERIPHERAL BLOOD SPECIMEN / Unknown Venipuncture / Unknown 08/27/2025 8:17 AM EST 08/27/2025 8:24 AM EST Albin Puentes DO LAB BLOOD ORDERABLES Final Resul t Performing Organization Address City/[facility]/ZIP Co de Phone Number [facility] [address] [facility] [place] [address], [place] * T4, Free (08/26/2025 11:37 AM EST) Free Thyroxine 1.2 0.9 - 1.7 ng/dL 08/27/2025 12:04 AM EST [facility] Blood PERIPHERAL BLOOD SPECIMEN / Unknown Venipuncture / Unknown 08/26/2025 11:37 AM EST 08/26/2025 11:46 AM EST Nadir Lewis MD LAB BLOOD ORDERABLES Final Res ult Performing Organization Address [facility] de Phone Number [facility] [address] [facility] [place] [address], [place] * (ABNORMAL) TSH (08/26/2025 11:37 AM EST) TSH 6.70(H) 0.27 - 4.20 uIU/mL 08/26/2025 3:03 PM EST [facility] Blood PERIPHERAL BLOOD SPECIMEN / Unknown Venipuncture / Unknown 08/26/2025 11:37 AM EST 08/26/2025 11:46 AM EST us Nadir Lewis MD LAB BLOOD ORDERABLES Final Res ult Performing Organization Address City/[facility] Co de Phone Number [facility] [address] [facility] [place] [address], [place] * (ABNORMAL) CBC and Differential (08/26/2025 11:37 AM EST) WBC 5.90 4.00 - 10.00 K/uL 08/26/2025 11:54 AM [facility] AP RBC 2.77(L) 3.90 - 5.20 M/uL 08/26/2025 11:54 AM [facility] AP Hemoglobin 7.7(L) 11.2 - 15.7 g/dL 08/26/2025 11:54 AM [facility] AP Hematocrit 24.8(L) 34.0 - 45.0 % 08/26/2025 11:54 AM [facility] AP MCV 90 82 - 98 fL 08/26/2025 11:54 AM [facility] AP MCH 27.8 26.0 - 32.0 pg 08/26/2025 11:54 AM [facility] AP MCHC 31.0(L) 32.0 - 37.0 g/dL 08/26/2025 11:54 AM [facility] AP RDW 14.8 10.5 - 15.5 % 08/26/2025 11:54 AM [facility] AP RDW-SD 47.9(H) 35.1 - 46.3 fL 08/26/2025 11:54 AM [facility] AP Platelet Count 230 150 - 400 K/uL 08/26/2025 11:54 AM [facility] AP Nucleated RBC 0 <=0 #/100 WBC 08/26/2025 11:54 AM [facility] Neutrophil 79.7(H) 34.0 - 71.0 % 08/26/2025 11:54 AM [facility] Lymphocyte 11.0(L) 19.0 - 53.0 % 08/26/2025 11:54 AM [facility] Monocyte 5.3 5.0 - 13.0 % 08/26/2025 11:54 AM [facility] AP Eosinophil 3.2 1.0 - 7.0 % 08/26/2025 11:54 AM [facility] AP Basophil 0.3 0.0 - 1.0 % 08/26/2025 11:54 AM [facility] AP Immature Granulocyte (Scammon, Myelo, Promyelocyte) 0.5 0.0 - 0.6 % 08/26/2025 11:54 AM EST [facility] AP Absolute Neutrophil Count 4.70 1.60 - 6.10 K/uL 08/26/2025 11:54 AM EST [facility] AP Absolute Lymphocyte Count 0.65(L) 1.20 - 3.70 K/uL 08/26/2025 11:54 AM EST [facility] AP Absolute Monocyte Count 0.31 0.20 - 0.80 K/uL 08/26/2025 11:54 AM EST [facility] AP Absolute Eosinophil Count 0.19 0.04 - 0.54 K/uL 08/26/2025 11:54 AM EST [facility] AP Absolute Basophil Count <0.03 0.01 - 0.08 K/uL 08/26/2025 11:54 AM EST [facility] AP Absolute Immature Granulocyte (Scammon, Myelo, Promyelocyte) 0.03 0.00 - 0.09 K/uL 08/26/2025 11:54 AM EST [facility] AP Blood PERIPHERAL BLOOD SPECIMEN / Unknown Venipuncture / Unknown 08/26/2025 11:37 AM EST 08/26/2025 11:46 AM EST us Nadir Lewis MD LAB BLOOD ORDERABLES Final Res ult [facility] AP [address] [place] [address], [place] * (ABNORMAL) Renal Function Panel (08/26/2025 11:37 AM EST) Sodium 128(L) 135 - 147 mmol/L 08/26/2025 12:28 PM EST [facility] Potassium 4.3 3.5 - 5.4 mmol/L 08/26/2025 12:28 PM EST [facility] Chloride 94(L) 96 - 108 mmol/L 08/26/2025 12:28 PM [facility] Total CO2/Bicarbonate 30 22 - 32 mmol/L 08/26/2025 12:28 PM EST [facility] Anion Gap 4 4 - 16 mmol/L 08/26/2025 12:28 PM EST [facility] BUN 14 6 - 20 mg/dL 08/26/2025 12:28 PM EST [facility] Creatinine, Blood 0.40 0.40 - 1.10 mg/dL 08/26/2025 12:28 PM EST [facility] Glucose, Blood 126(H) 70 - 100 mg/dL 08/26/2025 12:28 PM EST [facility] Calcium 8.1(L) 8.4 - 10.3 mg/dL 08/26/2025 12:28 PM EST [facility] Albumin, Blood 2.4(L) 3.5 - 5.2 g/dL 08/26/2025 12:28 PM EST [facility] Phosphorus 2.8 2.7 - 4.5 mg/dL 08/26/2025 12:28 PM [facility] Magnesium, Blood 1.9 1.6 - 2.6 mg/dL 08/26/2025 12:28 PM EST [facility] LABORATORY Blood PERIPHERAL BLOOD SPECIMEN / Unknown Venipuncture / Unknown 08/26/2025 11:37 AM EST 08/26/2025 11:46 AM EST Nadir Lewis MD LAB BLOOD ORDERABLES Final Res ult Performing Organization Address [facility] Co de Phone Number [facility] [address] [place] [address], * (ABNORMAL) C-Reactive Protein (08/26/2025 11:37 AM EST) C-Reactive Protein (CRP) 112.0(H) 0.0 - 5.0 mg/L 08/26/2025 12:38 PM EST [facility] Blood PERIPHERAL BLOOD SPECIMEN / Unknown Venipuncture / Unknown 08/26/2025 11:37 AM EST 08/26/2025 11:46 AM EST us Nadir Lewis MD LAB BLOOD ORDERABLES Final Res ult Performing Organization Address [facility]/ZIP Co de Phone Number [facility] [address] [place] [address], * Uric Acid, Random Urine (08/26/2025 1:55 AM EST) Initial Urine Uric Acid 55 No Established Reference Range mg/dL 08/26/2025 2:29 AM EST [facility] Urine URINE SPECIMEN / Unknown Collection / Unknown 08/26/2025 1:55 AM EST 08/26/2025 2:06 AM EST us Nadir Lewis MD URINE ORDERABLES Final Result Performing Organization Address [facility] Co de Phone Number [facility] [address] [place] [address], [place] * Urea Nitrogen, Urine (08/26/2025 1:55 AM EST) Urea Nitrogen, Random Urine 552 No Established Reference Range mg/dL 08/26/2025 2:29 AM EST [facility] Urine URINE SPECIMEN / Unknown Collection / Unknown 08/26/2025 1:55 AM EST 08/26/2025 2:06 AM EST us Nadir Lewis MD URINE ORDERABLES Final Result Performing Organization Address [facility] de Phone Number [facility] [address] [place] [address], [place] * Creatinine, Urine, Random (08/26/2025 1:55 AM EST) Creatinine, Vikash Urine 82.0 No Established Reference Range mg/dL 08/26/2025 2:29 AM EST [facility] Urine URINE SPECIMEN / Unknown Collection / Unknown 08/26/2025 1:55 AM EST 08/26/2025 2:06 AM EST us Nadir Lewis MD URINE ORDERABLES Final Result Performing Organization Address [facility] Co de Phone Number [facility] [address] [facility] [place] [address], [place] * Osmolality, Urine (08/26/2025 1:55 AM EST) Osmolality, Urine 555 mosm/kg 08/26/2025 2:12 AM EST [facility] Urine URINE SPECIMEN / Unknown Collection / Unknown 08/26/2025 1:55 AM EST 08/26/2025 2:06 AM EST us Nadir Lewis MD URINE ORDERABLES Final Result Performing Organization Address [facility] Co de Phone Number [facility] [address] [place] [address], [place] * Sodium, Urine, Random (08/26/2025 1:55 AM EST) Sodium, Random Urine 61 No Establish Reference Range mmol/L 08/26/2025 2:29 AM EST [facility] Urine URINE SPECIMEN / Unknown Collection / Unknown 08/26/2025 1:55 AM EST 08/26/2025 2:06 AM EST us Nadir Lewis MD URINE ORDERABLES Final Result Performing Organization Address [facility] Phone Number [facility] [address] [place] [address], [place] * XR Abdomen Portable (08/25/2025 3:33 PM EST) Anatomical Region Laterality Modality Abdomen Digital Radiogra phy 08/25/2025 3:53 PM EST Impressions 08/25/2025 3:52 PM EST Nonspecific bowel gas pattern with gas noted throughout nondilated small bowel loops in the midline and: To the level of rectum. There is a single dilated loop of bowel probably small bowel loop in the left upper quadrant suggestive of focal ileus or could be splenic flexure. Moderate stool burden in the right side of the colon. Suboptimal study for evaluation of free air however no gross pneumoperitoneum. There are degenerative changes in the spine Kate Lugo MD, electronically signed on Aug 25 2025 03:52PM Narrative 08/25/2025 3:52 PM EST INDICATION: LUQ abdominal pain; TECHNIQUE: Portable supine abdominal radiograph was obtained. COMPARISON: None Procedure Note Kate Lugo MD - 08/25/2025 INDICATION: LUQ abdominal pain; TECHNIQUE: Portable supine abdominal radiograph was obtained. COMPARISON: None IMPRESSION: Nonspecific bowel gas pattern with gas noted throughout nondilated small bowel loops in the midline and: To the level of rectum. There is a single dilated loop of bowel probably small bowel loop in the left upper quadrant suggestive of focal ileus or could be splenic flexure. Moderate stool burden in the right side of the colon. Suboptimal study for evaluation of free air however no gross pneumoperitoneum. There are degenerative changes in the spine Kate Lugo MD, electronically signed on Aug 25 2025 03:52PM Nadir Lewis MD IMG DIAGNOSTIC IMAGING ORDERAB LES Final Result * Vancomycin, Trough (08/25/2025 1:37 PM EST) Pathologist [facility] Vancomycin Level, Trough 12.6 10.0 - 20.0 ug/mL 08/25/2025 2:43 PM EST [facility] Blood PERIPHERAL BLOOD SPECIMEN / Unknown Venipuncture / Unknown 08/25/2025 1:37 PM EST 08/25/2025 2:11 PM EST Nadir Lewis MD LAB BLOOD ORDERABLES Final Res ult Performing Organization Address City/[facility]/ZIP Co de Phone Number [facility] [address] [facility] [place] [address], [place] * Urine Micro Hold (08/25/2025 11:27 AM EST) Pathologist [facility] Micro Urine Reflex Hold Received 08/25/2025 1:02 PM EST [facility] AP Urine URINE SPECIMEN OBTAINED VIA STRAIGHT CATHETER / Unknown Collection / Unknown 08/25/2025 11:27 AM EST 08/25/2025 11:42 AM EST Nadir Lewis MD URINE ORDERABLES Final Result Performing Organization Address [facility] Co de Phone Number [facility] AP [address] [facility] [place] [address], [place] * (ABNORMAL) Urinalysis with Reflex to Urine Culture (08/25/2025 11:27 AM EST) Color, Urine Yellow Yellow, Colorless, Straw 08/25/2025 12:07 PM [facility] Clarity, Urine Hazy(A) Clear 08/25/2025 12:07 PM [facility] pH, Urine 6.0 5.0 - 8.0 08/25/2025 12:07 PM [facility] Protein, Urine 20 mg/dL(A) Negative 12:07 PM [facility] Glucose, Urine Negative Negative 08/25/2025 12:07 PM [facility] Ketone, Urine Negative Negative 08/25/2025 12:07 PM [facility] Bilirubin, Urine Negative Negative 08/25/2025 12:07 PM [facility] Urobilinogen, Urine Normal 0.2-1.0 mg/dL 08/25/2025 12:07 PM [facility] Blood, Urine Negative Negative 08/25/2025 12:07 PM [facility] Leukocyte Esterase, Urine Negative Negative 08/25/2025 12:07 PM [facility] Nitrite, Urine Negative Negative 08/25/2025 12:07 PM [facility] Specific [place], Urine 1.021 1.001 - 1.050 08/25/2025 12:07 PM [facility] White Blood Cells, Urine 0 0 - 5 /hpf 08/25/2025 12:07 PM [facility] Red Blood Cell, Urine 0 0 - 2 /hpf 08/25/2025 12:07 PM [facility] Budding Yeast Few(A) None Seen 08/25/2025 12:07 PM [facility] Hyphae Yeast Rare(A) None Seen 08/25/2025 12:07 PM [facility] Squamous Epithelial Cells 0-2 0-20 cells/HPF /HPF 08/25/2025 12:07 PM [facility] Mucous Threads Rare(A) None Seen 08/25/2025 12:07 PM [facility] Ca Oxalate Crystal Rare(A) None Seen 08/25/2025 12:07 PM [facility] Urine URINE SPECIMEN OBTAINED VIA STRAIGHT CATHETER / Unknown Collection / Unknown 08/25/2025 11:27 AM EST 08/25/2025 11:42 AM EST us Nadir Lewis MD URINE ORDERABLES Final Result Performing Organization Address City/[facility]/ZIP Co de Phone Number [facility] [address] [facility] [place] [address], [place] * Urea Nitrogen, Urine (08/25/2025 11:27 AM EST) Urea Nitrogen, Random Urine 658 No Established Reference Range mg/dL 08/25/2025 12:24 PM EST [facility] Urine URINE SPECIMEN / Unknown Collection / Unknown 08/25/2025 11:27 AM EST 08/25/2025 11:42 AM EST us Nadir Lewis MD URINE ORDERABLES Final Result Performing Organization Address City/[facility]/ZIP Co de Phone Number [facility] [address] [facility] [place] [address], [place] * Creatinine, Urine, Random (08/25/2025 11:27 AM EST) Creatinine, Vikash Urine 62.0 No Established Reference Range mg/dL 08/25/2025 12:24 PM EST [facility] Urine URINE SPECIMEN / Unknown Collection / Unknown 08/25/2025 11:27 AM EST 08/25/2025 11:42 AM EST us Nadir Lewis MD URINE ORDERABLES Final Result Performing Organization Address City/[facility]/ZIP Co de Phone Number [facility] [address] [facility] [place] [address], [place] * Sodium, Urine, Random (08/25/2025 11:27 AM EST) Sodium, Random Urine 37 No Establish Reference Range mmol/L 08/25/2025 12:24 PM EST [facility] Urine URINE SPECIMEN / Unknown Collection / Unknown 08/25/2025 11:27 AM EST 08/25/2025 11:42 AM EST us Nadir Lewis MD URINE ORDERABLES Final Result Performing Organization Address [facility]/ZIP Co de Phone Number [facility] [address] [facility] [place] [address], [place] * Osmolality, Urine (08/25/2025 11:27 AM EST) Osmolality, Urine 499 mosm/kg 08/25/2025 12:08 PM EST [facility] Urine URINE SPECIMEN / Unknown Collection / Unknown 08/25/2025 11:27 AM EST 08/25/2025 11:42 AM EST Nadir Lewis MD URINE ORDERABLES Final Result Performing Organization Address [facility] de Phone Number [facility] [address] [facility] [place] [address], [place] * (ABNORMAL) Osmolality (08/25/2025 10:06 AM EST) Osmolality 270(L) 275 - 310 mosm/kg 08/25/2025 10:59 AM EST [facility] Blood PERIPHERAL BLOOD SPECIMEN / Unknown Venipuncture / Unknown 08/25/2025 10:06 AM EST 08/25/2025 10:11 AM EST Nadir Lewis MD LAB BLOOD ORDERABLES Final Res ult Performing Organization Address [facility] Co de Phone Number [facility] [address] [facility] [place] [address], [place] * (ABNORMAL) Renal Function Panel (08/25/2025 6:38 AM EST) Sodium 125(L) 135 - 147 mmol/L 08/25/2025 7:19 AM EST [facility] Potassium 4.2 3.5 - 5.4 mmol/L 08/25/2025 7:19 AM EST [facility] Chloride 95(L) 96 - 108 mmol/L 08/25/2025 7:19 AM EST [facility] Total CO2/Bicarbonate 29 22 - 32 mmol/L 08/25/2025 7:19 AM EST [facility] Anion Gap 1(L) 4 - 16 mmol/L 08/25/2025 7:19 AM EST [facility] BUN 18 6 - 20 mg/dL 08/25/2025 7:19 AM EST [facility] Creatinine, Blood 0.30(L) 0.40 - 1.10 mg/dL 08/25/2025 7:19 AM EST [facility] Glucose, Blood 128(H) 70 - 100 mg/dL 08/25/2025 7:19 AM EST [facility] Calcium 8.3(L) 8.4 - 10.3 mg/dL 08/25/2025 7:19 AM EST [facility] Albumin, Blood 2.4(L) 3.5 - 5.2 g/dL 08/25/2025 7:19 AM EST [facility] Phosphorus 2.6(L) 2.7 - 4.5 mg/dL 08/25/2025 7:19 AM EST [facility] Magnesium, Blood 1.9 1.6 - 2.6 mg/dL 08/25/2025 7:19 AM EST [facility] Blood PERIPHERAL BLOOD SPECIMEN / Unknown Venipuncture / Unknown 08/25/2025 6:38 AM EST 08/25/2025 6:40 AM EST us Nadir Lewis MD LAB BLOOD ORDERABLES Final Res ult Performing Organization Address City/[facility] Co de Phone Number [facility] [address] [place] [address], [place] * (ABNORMAL) C-Reactive Protein (08/25/2025 6:38 AM EST) C-Reactive Protein (CRP) 162.0(H) 0.0 - 5.0 mg/L 08/25/2025 7:38 AM EST [facility] Blood PERIPHERAL BLOOD SPECIMEN / Unknown Venipuncture / Unknown 08/25/2025 6:38 AM EST 08/25/2025 6:40 AM EST us Albin Puentes DO LAB BLOOD ORDERABLES Final Resul t Performing Organization Address City/[facility]/ZIP Co de Phone Number [facility] [address] [place] [address], [place] * (ABNORMAL) CBC (08/25/2025 6:38 AM EST) WBC 8.58 4.00 - 10.00 K/uL 08/25/2025 6:53 AM EST [facility] AP RBC 2.81(L) 3.90 - 5.20 M/uL 08/25/2025 6:53 AM EST [facility] AP Hemoglobin 7.9(L) 11.2 - 15.7 g/dL 08/25/2025 6:53 AM EST [facility] AP Hematocrit 24.7(L) 34.0 - 45.0 % 08/25/2025 6:53 AM EST [facility] AP MCV 88 82 - 98 fL 08/25/2025 6:53 AM EST [facility] AP MCH 28.1 26.0 - 32.0 pg 08/25/2025 6:53 AM EST [facility] AP MCHC 32.0 32.0 - 37.0 g/dL 08/25/2025 6:53 AM EST [facility] AP RDW 14.9 10.5 - 15.5 % 08/25/2025 6:53 AM EST [facility] AP RDW-SD 47.7(H) 35.1 - 46.3 fL 08/25/2025 6:53 AM EST [facility] AP Platelet Count 232 150 - 400 K/uL 08/25/2025 6:53 AM EST [facility] Nucleated RBC 0 <=0 #/100 WBC 08/25/2025 6:53 AM EST [facility] AP Blood PERIPHERAL BLOOD SPECIMEN / Unknown Venipuncture / Unknown 08/25/2025 6:38 AM EST 08/25/2025 6:40 AM EST us Albin Puentes DO LAB BLOOD ORDERABLES Final Resul t [facility] [address] [place] [address], [place] * Heparin Assay in AM (08/25/2025 6:38 AM EST) Pathologist [facility] Heparin Assay 0.37 0.30 - 0.70 IU/mL 08/25/2025 7:04 AM EST [facility] Blood PERIPHERAL BLOOD SPECIMEN / Unknown Venipuncture / Unknown 08/25/2025 6:38 AM EST 08/25/2025 6:40 AM EST us Marianne Rose MD LAB BLOOD ORDERABLES Final Resu lt Performing Organization Address [facility] Co de Phone Number [facility] [address] [facility] [place] [address], [place] * (ABNORMAL) Vancomycin, Trough (08/24/2025 1:02 PM EST) Vancomycin Level, Trough 5.1(L) 10.0 - 20.0 ug/mL 08/24/2025 1:50 PM EST [facility] Blood PERIPHERAL BLOOD SPECIMEN / Unknown Venipuncture / Unknown 08/24/2025 1:02 PM EST 08/24/2025 1:18 PM EST us Nadir Lewis MD LAB BLOOD ORDERABLES Final Res ult Performing Organization Address [facility] Phone Number [facility] [address] [facility] [place] [address], [place] * XR Wrist 3+ VW Right (08/24/2025 12:26 PM EST) Anatomical Region Laterality Modality Wrist Right Computed Radiogr aphy 08/24/2025 5:09 PM EST Impressions 08/24/2025 5:46 PM EST No acute fractures or dislocations are seen. Mild degenerative changes of the first carpometacarpal joint in setting of osteophytosis. Mild negative ulnar variance. No bone erosion or periostitis. No suspicious lytic or sclerotic lesion. No soft tissue calcifications or radiopaque foreign body. No significant carpal bone malalignment. BY ELECTRONICALLY SIGNING THIS REPORT, I THE ATTENDING PHYSICIAN ATTEST THAT I HAVE REVIEWED THE IMAGES FOR THE ABOVE PROCEDURE(S) AND AGREE WITH THE FINDINGS DOCUMENTED. Geeta Hummel MD, electronically signed on Aug 24 2025 05:46PM Narrative 08/24/2025 5:46 PM EST EXAMINATION: XR WRIST 3+ VW RIGHT; XR HAND 3+ VW RIGHT INDICATION: pt with fall and continued r wrist and hand pain.; TECHNIQUE: Frontal, oblique, and lateral view radiographs of right hand and wrist COMPARISON: None available. Procedure Note Carlos A Sawyer MD - 08/24/2025 EXAMINATION: XR WRIST 3+ VW RIGHT; XR HAND 3+ VW RIGHT INDICATION: pt with fall and continued r wrist and hand pain.; TECHNIQUE: Frontal, oblique, and lateral view radiographs of right hand and wrist COMPARISON: None available. IMPRESSION: No acute fractures or dislocations are seen. Mild degenerative changes of the first carpometacarpal joint in setting of osteophytosis. Mild negative ulnar variance. No bone erosion or periostitis. No suspicious lytic or sclerotic lesion. No soft tissue calcifications or radiopaque foreign body. No significant carpal bone malalignment. BY ELECTRONICALLY SIGNING THIS REPORT, I THE ATTENDING PHYSICIAN ATTEST THAT I HAVE REVIEWED THE IMAGES FOR THE ABOVE PROCEDURE(S) AND AGREE WITH THE FINDINGS DOCUMENTED. Geeta Hummel MD, electronically signed on Aug 24 2025 05:46PM Nadir Lewis MD IMG DIAGNOSTIC IMAGING ORDERAB LES Final Result * XR Hand 3+ VW Right (08/24/2025 12:26 PM EST) Anatomical Region Laterality Modality Hand Right Computed Radiogr aphy 08/24/2025 5:09 PM EST Impressions 08/24/2025 5:46 PM EST No acute fractures or dislocations are seen. Mild degenerative changes of the first carpometacarpal joint in setting of osteophytosis. Mild negative ulnar variance. No bone erosion or periostitis. No suspicious lytic or sclerotic lesion. No soft tissue calcifications or radiopaque foreign body. No significant carpal bone malalignment. BY ELECTRONICALLY SIGNING THIS REPORT, I THE ATTENDING PHYSICIAN ATTEST THAT I HAVE REVIEWED THE IMAGES FOR THE ABOVE PROCEDURE(S) AND AGREE WITH THE FINDINGS DOCUMENTED. Geeta Hummel MD, electronically signed on Aug 24 2025 05:46PM Narrative 08/24/2025 5:46 PM EST EXAMINATION: XR WRIST 3+ VW RIGHT; XR HAND 3+ VW RIGHT INDICATION: pt with fall and continued r wrist and hand pain.; TECHNIQUE: Frontal, oblique, and lateral view radiographs of right hand and wrist COMPARISON: None available. Procedure Note Carlos A Sawyer MD - 08/24/2025 EXAMINATION: XR WRIST 3+ VW RIGHT; XR HAND 3+ VW RIGHT INDICATION: pt with fall and continued r wrist and hand pain.; TECHNIQUE: Frontal, oblique, and lateral view radiographs of right hand and wrist COMPARISON: None available. IMPRESSION: No acute fractures or dislocations are seen. Mild degenerative changes of the first carpometacarpal joint in setting of osteophytosis. Mild negative ulnar variance. No bone erosion or periostitis. No suspicious lytic or sclerotic lesion. No soft tissue calcifications or radiopaque foreign body. No significant carpal bone malalignment. BY ELECTRONICALLY SIGNING THIS REPORT, I THE ATTENDING PHYSICIAN ATTEST THAT I HAVE REVIEWED THE IMAGES FOR THE ABOVE PROCEDURE(S) AND AGREE WITH THE FINDINGS DOCUMENTED. Geeta Hummel MD, electronically signed on Aug 24 2025 05:46PM Nadir Lewis MD IMG DIAGNOSTIC IMAGING ORDERAB LES Final Result * ECG 12 lead (08/24/2025 9:39 AM EST) Ventricular Heart Rate 98 BPM EKG [facility] MUSE Atrial Heart Rate 98 BPM EKG [facility] MUSE UT Interval 174 ms EKG [facility] MUSE QRSD Interval 106 ms EKG [facility] MUSE QT Interval 354 ms EKG [facility] MUSE QTC Interval 451 ms EKG [facility] MUSE P [place] 51 degrees EKG BUR MUSE R [place] 1 degrees EKG [facility] MUSE T Wave [place] 16 degrees EKG [facility] MUSE 08/24/2025 9:37 AM EST 08/28/2025 12:02 PM EST Narrative EKG [facility] MUSE - 08/28/2025 12:02 PM EST Sinus rhythm with premature atrial depolarizations When compared with ECG of 23-Aug-2025 00:35, No significant change was found Procedure Note Mazin Smart MD - 08/28/2025 Sinus rhythm with premature atrial depolarizations When compared with ECG of 23-Aug-2025 00:35, No significant change was found Nadir Lewis MD ECG ORDERABLES Final Result EKG BUR [address] [address] * Heparin Assay in AM (08/24/2025 6:04 AM EST) Pathologist [facility] Heparin Assay 0.45 0.30 - 0.70 IU/mL 08/24/2025 6:53 AM EST [facility] Blood PERIPHERAL BLOOD SPECIMEN / Unknown Venipuncture / Unknown 08/24/2025 6:04 AM EST 08/24/2025 6:28 AM EST Nadir Lewis MD LAB BLOOD ORDERABLES Final Res ult Performing Organization Address City/[facility]/ZIP Co de Phone Number [facility] [address] [place] [address], * (ABNORMAL) Renal Function Panel (08/24/2025 6:03 AM EST) Sodium 128(L) 135 - 147 mmol/L 08/24/2025 7:22 AM EST [facility] Potassium 3.8 3.5 - 5.4 mmol/L 08/24/2025 7:22 AM EST [facility] Chloride 95(L) 96 - 108 mmol/L 08/24/2025 7:22 AM EST [facility] Total CO2/Bicarbonate 27 22 - 32 mmol/L 08/24/2025 7:22 AM EST [facility] Anion Gap 6 4 - 16 mmol/L 08/24/2025 7:22 AM EST [facility] BUN 21(H) 6 - 20 mg/dL 08/24/2025 7:22 AM EST [facility] Creatinine, Blood 0.30(L) 0.40 - 1.10 mg/dL 08/24/2025 7:22 AM EST [facility] Glucose, Blood 128(H) 70 - 100 mg/dL 08/24/2025 7:22 AM EST [facility] Calcium 8.3(L) 8.4 - 10.3 mg/dL 08/24/2025 7:22 AM EST [facility] Albumin, Blood 2.5(L) 3.5 - 5.2 g/dL 08/24/2025 7:22 AM EST [facility] Phosphorus 2.6(L) 2.7 - 4.5 mg/dL 08/24/2025 7:22 AM EST [facility] Magnesium, Blood 1.9 1.6 - 2.6 mg/dL 08/24/2025 7:22 AM EST [facility] Blood PERIPHERAL BLOOD SPECIMEN / Unknown Venipuncture / Unknown 08/24/2025 6:03 AM EST 08/24/2025 6:28 AM EST us Nadir Lewis MD LAB BLOOD ORDERABLES Final Res ult Performing Organization Address City/[facility]/ZIP Co de Phone Number [facility] [address] [place] [address], * (ABNORMAL) C-Reactive Protein (08/24/2025 6:03 AM EST) C-Reactive Protein (CRP) 171.0(H) 0.0 - 5.0 mg/L 08/24/2025 7:22 AM EST [facility] Blood PERIPHERAL BLOOD SPECIMEN / Unknown Venipuncture / Unknown 08/24/2025 6:03 AM EST 08/24/2025 6:28 AM EST us Albin Puentes DO LAB BLOOD ORDERABLES Final Resul t [facility] [address] [place] [address], * (ABNORMAL) CBC (08/24/2025 6:03 AM EST) WBC 10.66(H) 4.00 - 10.00 K/uL 08/24/2025 6:46 AM [facility] AP RBC 2.82(L) 3.90 - 5.20 M/uL 08/24/2025 6:46 AM [facility] Hemoglobin 7.9(L) 11.2 - 15.7 g/dL 08/24/2025 6:46 AM [facility] Hematocrit 24.7(L) 34.0 - 45.0 % 08/24/2025 6:46 AM [facility] AP MCV 88 82 - 98 fL 08/24/2025 6:46 AM [facility] AP MCH 28.0 26.0 - 32.0 pg 08/24/2025 6:46 AM [facility] MCHC 32.0 32.0 - 37.0 g/dL 08/24/2025 6:46 AM [facility] RDW 14.9 10.5 - 15.5 % 08/24/2025 6:46 AM [facility] RDW-SD 47.9(H) 35.1 - 46.3 fL 08/24/2025 6:46 AM [facility] Platelet Count 244 150 - 400 K/uL 08/24/2025 6:46 AM [facility] Nucleated RBC 0 <=0 #/100 WBC 08/24/2025 6:46 AM [facility] AP Blood PERIPHERAL BLOOD SPECIMEN / Unknown Venipuncture / Unknown 08/24/2025 6:03 AM EST 08/24/2025 6:28 AM EST us Albin Puentes DO LAB BLOOD ORDERABLES Final Resul t [facility] AP [address] [place] [address], * Heparin Assay in 6 Hours (08/23/2025 11:50 PM EST) Heparin Assay 0.42 0.30 - 0.70 IU/mL 08/24/2025 1:14 AM [facility] Blood PERIPHERAL BLOOD SPECIMEN / Unknown Venipuncture / Unknown 08/23/2025 11:50 PM EST 08/23/2025 11:56 PM EST Nadir Lewis MD LAB BLOOD ORDERABLES Final Res ult Performing Organization Address [facility] Co de Phone Number [facility] [address] [facility] [place] [address], [place] * Heparin Assay in 6 Hours (08/23/2025 4:17 PM EST) Heparin Assay 0.43 0.30 - 0.70 IU/mL 08/23/2025 4:54 PM EST [facility] Blood PERIPHERAL BLOOD SPECIMEN / Unknown Venipuncture / Unknown 08/23/2025 4:17 PM EST 08/23/2025 4:30 PM EST Nadir Lewis MD LAB BLOOD ORDERABLES Final Res ult Performing Organization Address [facility] Phone Number [facility] [address] [place] [address], [place] * (ABNORMAL) hs-Troponin T (08/23/2025 4:17 PM EST) Troponin T HS 23(H) <=19 ng/L 08/23/2025 6:00 PM EST [facility] Comment: hs-cTnT<=19 ng/L in 99% of healthy individuals. hs-cTnT values of 30, 52, 100 and 1000 ng/L correspond to approximately DONNA Gen 4 of 0.01, 0.03, 0.1 and 1 ng/mL Blood PERIPHERAL BLOOD SPECIMEN / Unknown Venipuncture / Unknown 08/23/2025 4:17 PM EST 08/23/2025 4:30 PM EST Madeleine Rivas MD LAB BLOOD ORDERABLES Fin al Result Performing Organization Address [facility] Co co Phone Number [facility] [address] [facility] [place] [address], [place] * (ABNORMAL) Nasal MRSA by PCR (08/23/2025 1:29 PM EST) Pathologist [facility] MRSA PCR Positive(A ) Negative 08/24/2025 12:40 PM EST [facility] Respiratory BOTH ANTERIOR NARES / Unknown Collection / Unknown 08/23/2025 1:29 PM EST 08/23/2025 1:50 PM EST Narrative [facility] - 08/24/2025 12:40 PM EST Test performed by GeneXpert real-time PCR. us Nadir Lewis MD MICROBIOLOGY - GENERAL ORDERAB LES Final Result Performing Organization Address City/[facility]/ZIP Co de Phone Number [facility] [address] [facility] [place] [address], [place] * Magnesium (08/23/2025 8:49 AM EST) [facility] Magnesium, Blood 1.9 1.6 - 2.6 mg/dL 08/23/2025 2:03 PM EST [facility] Blood PERIPHERAL BLOOD SPECIMEN / Unknown Venipuncture / Unknown 08/23/2025 8:49 AM EST 08/23/2025 8:58 AM EST us Nadir Lewis MD LAB BLOOD ORDERABLES Final Res ult Performing Organization Address City/[facility]/ZIP Co de Phone Number [facility] [address] [facility] [place] [address], [place] * (ABNORMAL) C-Reactive Protein (08/23/2025 8:49 AM EST) [facility] C-Reactive Protein (CRP) 150.0(H) 0.0 - 5.0 mg/L 08/23/2025 10:29 AM EST [facility] Blood PERIPHERAL BLOOD SPECIMEN / Unknown Venipuncture / Unknown 08/23/2025 8:49 AM EST 08/23/2025 8:58 AM EST Albin Puentes DO LAB BLOOD ORDERABLES Final Resul t Performing Organization Address City/[facility]/ZIP Co de Phone Number [facility] [address] [facility] [place] [address], [place] * (ABNORMAL) CBC (08/23/2025 8:49 AM EST) WBC 11.86(H) 4.00 - 10.00 K/uL 08/23/2025 9:26 AM EST [facility] AP RBC 2.91(L) 3.90 - 5.20 M/uL 08/23/2025 9:26 AM EST [facility] AP Hemoglobin 8.2(L) 11.2 - 15.7 g/dL 08/23/2025 9:26 AM EST [facility] AP Hematocrit 25.6(L) 34.0 - 45.0 % 08/23/2025 9:26 AM EST [facility] AP MCV 88 82 - 98 fL 08/23/2025 9:26 AM EST [facility] AP MCH 28.2 26.0 - 32.0 pg 08/23/2025 9:26 AM EST [facility] AP MCHC 32.0 32.0 - 37.0 g/dL 08/23/2025 9:26 AM EST [facility] AP RDW 15.0 10.5 - 15.5 % 08/23/2025 9:26 AM EST [facility] AP RDW-SD 47.8(H) 35.1 - 46.3 fL 08/23/2025 9:26 AM [facility] AP Platelet Count 269 150 - 400 K/uL 08/23/2025 9:26 AM EST [facility] AP Nucleated RBC 0 <=0 #/100 WBC 08/23/2025 9:26 AM [facility] AP Blood PERIPHERAL BLOOD SPECIMEN / Unknown Venipuncture / Unknown 08/23/2025 8:49 AM EST 08/23/2025 8:58 AM EST us Albin Puentes DO LAB BLOOD ORDERABLES Final Resul t [facility] AP [address] [place] [address], [place] * (ABNORMAL) hs-Troponin T (08/23/2025 8:49 AM EST) Troponin T HS 21(H) <=19 ng/L 08/23/2025 9:37 AM EST [facility] Comment: hs-cTnT<=19 ng/L in 99% of healthy individuals. hs-cTnT values of 30, 52, 100 and 1000 ng/L correspond to approximately DONNA Gen 4 of 0.01, 0.03, 0.1 and 1 ng/mL Blood PERIPHERAL BLOOD SPECIMEN / Unknown Venipuncture / Unknown 08/23/2025 8:49 AM EST 08/23/2025 8:58 AM EST us Madeleine Rivas MD LAB BLOOD ORDERABLES Fin al Result Performing Organization Address [facility] Co de Phone Number [facility] [address] [place] [address], [place] * (ABNORMAL) Heparin Assay in AM (08/23/2025 8:49 AM EST) [facility] Signature Heparin Assay 0.29(L) 0.30 - 0.70 IU/mL 08/23/2025 9:26 AM EST [facility] Blood PERIPHERAL BLOOD SPECIMEN / Unknown Venipuncture / Unknown 08/23/2025 8:49 AM EST 08/23/2025 8:58 AM EST us Nadir Lewis MD LAB BLOOD ORDERABLES Final Res ult Performing Organization Address [facility] Co de Phone Number [facility] [address] [place] [address], [place] * XR Chest 1 VW Portable (08/23/2025 1:31 AM EST) Anatomical Region Laterality Modality Chest Digital Radiogra phy 08/23/2025 7:32 AM EST Impressions 08/23/2025 7:31 AM EST In comparison to study of August 19, there are similar bibasilar and retrocardiac opacifications, likely representing pneumonia. Similar diffuse increased interstitial opacities may represent underlying mild pulmonary edema and severe emphysema. No pleural effusion or pneumothorax. Cardiac silhouette size is normal. Similar position of the left chest wall pacer device leads. Left proximal humerus fracture is again noted. Guy Callahan MD, electronically signed on Aug 23 2025 07:31AM Narrative 08/23/2025 7:31 AM EST EXAMINATION: XR CHEST 1 VW PORTABLE INDICATION: Hypoxia, eval pneumonia, fluid overload, pneumothorax; TECHNIQUE: AP chest COMPARISON: Chest radiograph dated 08/19/2025 Procedure Note Guy Callahan MD - 08/23/2025 EXAMINATION: XR CHEST 1 VW PORTABLE INDICATION: Hypoxia, eval pneumonia, fluid overload, pneumothorax; TECHNIQUE: AP chest COMPARISON: Chest radiograph dated 08/19/2025 IMPRESSION: In comparison to study of August 19, there are similar bibasilar and retrocardiac opacifications, likely representing pneumonia. Similar diffuse increased interstitial opacities may represent underlying mild pulmonary edema and severe emphysema. No pleural effusion or pneumothorax. Cardiac silhouette size is normal. Similar position of the left chest wall pacer device leads. Left proximal humerus fracture is again noted. Guy Callahan MD, electronically signed on Aug 23 2025 07:31AM Madeleine Rivas MD IMG DIAGNOSTIC IMAGING O RDERABLES Final Result * NT-proBNP (08/23/2025 1:28 AM EST) NT-ProBNP 183 0 - 624 pg/mL 08/23/2025 5:36 AM EST [facility] Comment: Reference values vary with age, sex, and renal function. At 35% prevalence, NT-proBNP values: <450 have 99% negative predictive value. >1000 have 78% positive predictive value For screening outpatients, the linotyper recommends maximizing sensitivity (and negative predictive value) by using two thresholds based on age. <125 pg/mL for patients younger than 75 <450 pg/mL for patients age 75 and older For acute dyspnea in ED patients, at 35% prevalence, study show that NTproBNP values <450 pg/mL have 99% negative predictive value for CHF >1000 pg/mL have 77% positve predictive value for CHF Blood PERIPHERAL BLOOD SPECIMEN / Unknown Venipuncture / Unknown 08/23/2025 1:28 AM EST 08/23/2025 1:31 AM EST us Madeleine Rivas MD LAB BLOOD ORDERABLES Fin al Result [facility] [address] [place] [address], [place] * (ABNORMAL) Basic Metabolic Panel (08/23/2025 1:28 AM EST) Sodium 130(L) 135 - 147 mmol/L 08/23/2025 2:02 AM EST [facility] Potassium 4.0 3.5 - 5.4 mmol/L 08/23/2025 2:02 AM EST [facility] Chloride 95(L) 96 - 108 mmol/L 08/23/2025 2:02 AM EST [facility] Total CO2/Bicarbonat e 26 22 - 32 mmol/L 08/23/2025 2:02 AM EST [facility] Anion Gap 9 4 - 16 mmol/L 08/23/2025 2:02 AM EST [facility] BUN 29(H) 6 - 20 mg/dL 08/23/2025 2:02 AM EST [facility] Creatinine, Blood 0.40 0.40 - 1.10 mg/dL 08/23/2025 2:02 AM EST [facility] Glucose, Blood 129(H) 70 - 100 mg/dL 08/23/2025 2:02 AM EST [facility] Calcium 8.3(L) 8.4 - 10.3 mg/dL 08/23/2025 2:02 AM EST [facility] Blood PERIPHERAL BLOOD SPECIMEN / Unknown Venipuncture / Unknown 08/23/2025 1:28 AM EST 08/23/2025 1:31 AM EST us Madeleine Rivas MD LAB BLOOD ORDERABLES Fin al Result [facility] [address] [place] [address], [place] * (ABNORMAL) CBC (08/23/2025 1:28 AM EST) WBC 11.77(H) 4.00 - 10.00 K/uL 08/23/2025 1:56 AM EST [facility] AP RBC 3.08(L) 3.90 - 5.20 M/uL 08/23/2025 1:56 AM EST [facility] AP Hemoglobin 9.0(L) 11.2 - 15.7 g/dL 08/23/2025 1:56 AM EST [facility] AP Hematocrit 27.1(L) 34.0 - 45.0 % 08/23/2025 1:56 AM EST [facility] AP MCV 88 82 - 98 fL 08/23/2025 1:56 AM EST [facility] AP MCH 29.2 26.0 - 32.0 pg 08/23/2025 1:56 AM EST [facility] AP MCHC 33.2 32.0 - 37.0 g/dL 08/23/2025 1:56 AM EST [facility] AP RDW 15.0 10.5 - 15.5 % 08/23/2025 1:56 AM EST [facility] AP RDW-SD 48.6(H) 35.1 - 46.3 fL 08/23/2025 1:56 AM EST [facility] AP Platelet Count 297 150 - 400 K/uL 08/23/2025 1:56 AM EST [facility] AP Nucleated RBC 0 <=0 #/100 WBC 08/23/2025 1:56 AM [facility] AP Blood PERIPHERAL BLOOD SPECIMEN / Unknown Venipuncture / Unknown 08/23/2025 1:28 AM EST 08/23/2025 1:31 AM EST us Madeleine Rivas MD LAB BLOOD ORDERABLES Fin al Result [facility] AP [address] [place] [address], * ECG 12 lead (08/23/2025 12:37 AM EST) Ventricular Heart Rate 96 BPM [facility]KG [facility] Atrial Heart Rate 96 BPM EKG [facility] UT Interval 170 ms EKG [facility] QRSD Interval 108 ms EKG [facility] QT Interval 358 ms EKG [facility] QTC Interval 452 ms EKG [facility] P [place] 31 degrees EKG [facility] R [place] -4 degrees EKG [facility] T Wave [place] 26 degrees EKG [facility] 08/23/2025 12:3 5 AM EST 08/24/2025 9:13 AM EST Narrative [facility] - 08/24/2025 9:13 AM EST Sinus rhythm with premature atrial depolarizations Inferior infarct , age undetermined Abnormal ECG When compared with ECG of 21-Aug-2025 22:25, Inferior infarct is now present Procedure Note Toan Mao MD - 08/24/2025 Sinus rhythm with premature atrial depolarizations Inferior infarct , age undetermined Abnormal ECG When compared with ECG of 21-Aug-2025 22:25, Inferior infarct is now present us Madeleine Rivas MD ECG ORDERABLES Final Re sult EKG [facility] [address] [place] [id number] * IR MSK Injection / Aspiration - US (08/22/2025 10:01 AM EST) Anatomical Region Laterality Modality Ultrasound 08/22/2025 12:4 3 PM EST Impressions 08/22/2025 3:47 PM EST 1. Imaging Findings - as above. 2. Procedure - Uneventful ultrasound-guided lavage with fluid aspiration, which was sent for microbiology. I Dr. Duran personally supervised the Resident/Fellow during the landrum components of the above procedure and I have reviewed and agree with the Resident/Fellow findings/dictation. BY ELECTRONICALLY SIGNING THIS REPORT, I THE ATTENDING PHYSICIAN ATTEST THAT I HAVE REVIEWED THE IMAGES FOR THE ABOVE PROCEDURE(S) AND AGREE WITH THE FINDINGS DOCUMENTED. Adarsh Duran MD, electronically signed on Aug 22 2025 03:47PM Narrative 08/22/2025 3:47 PM EST EXAMINATION: IR MSK INJECTION / ASPIRATION - US INDICATION: continued swelling of R shoulder, elevated CRP; TECHNIQUE: The risks, benefits, and alternatives were explained to the patient and written informed consent obtained. A pre-procedure timeout confirmed three patient identifiers. Under ultrasound guidance, an appropriate spot was marked. The area was prepared and draped in standard sterile fashion. 4 cc of 1% Lidocaine was used to achieve local anesthesia. Under intermittent ultrasound guidance, a 22-gauge spinal needle was advanced into the posterior aspect of the shoulder joint. Aspiration trail resulted in dry tap. Lavage of the joint was performed with 2-3 CC of joint reddish fluid was obtained. The needle was removed, hemostasis achieved, and a sterile bandage applied. The patient tolerated the procedure well and left the department in good condition. There were no immediate complications. COMPARISON: None FINDINGS: Again seen is cortical irregularity in keeping with known proximal left humeral fracture. Procedure Note David Duran MD - 08/22/2025 EXAMINATION: IR MSK INJECTION / ASPIRATION - US INDICATION: continued swelling of R shoulder, elevated CRP; TECHNIQUE: The risks, benefits, and alternatives were explained to the patient and written informed consent obtained. A pre-procedure timeout confirmed three patient identifiers. Under ultrasound guidance, an appropriate spot was marked. The area was prepared and draped in standard sterile fashion. 4 cc of 1% Lidocaine was used to achieve local anesthesia. Under intermittent ultrasound guidance, a 22-gauge spinal needle was advanced into the posterior aspect of the shoulder joint. Aspiration trail resulted in dry tap. Lavage of the joint was performed with 2-3 CC of joint reddish fluid was obtained. The needle was removed, hemostasis achieved, and a sterile bandage applied. The patient tolerated the procedure well and left the department in good condition. There were no immediate complications. COMPARISON: None FINDINGS: Again seen is cortical irregularity in keeping with known proximal left humeral fracture. IMPRESSION: 1. Imaging Findings - as above. 2. Procedure - Uneventful ultrasound-guided lavage with fluid aspiration, which was sent for microbiology. I Dr. Duran personally supervised the Resident/Fellow during the landrum components of the above procedure and I have reviewed and agree with the Resident/Fellow findings/dictation. BY ELECTRONICALLY SIGNING THIS REPORT, I THE ATTENDING PHYSICIAN ATTEST THAT I HAVE REVIEWED THE IMAGES FOR THE ABOVE PROCEDURE(S) AND AGREE WITH THE FINDINGS DOCUMENTED. Adarsh Duran MD, electronically signed on Aug 22 2025 03:47PM Albin Puentes DO IMG IR ORDERABLES Final Result * Culture, Prosthetic Joint Fluid (08/22/2025 9:53 AM EST) Prosthetic Joint Fluid Culture No growth DARSHANA 09/05/2025 12:42 PM EST [facility] Smear,Gram Stain 1+ Polymorphonuclear Leukocytes 09/05/2025 12:42 PM EST [facility] Smear,Gram Stain No Microorganisms Seen 09/05/2025 12:42 PM EST [facility] Body Fluid FLUID / Unknown 08/22/2025 9 :53 AM EST 08/22/2025 10:02 AM EST Albin Puentes DO MICROBIOLOGY - GENERAL ORDERABLE S Final Result Performing Organization Address City/State/[facility] Co de Phone Number [facility] [address] [facility] [address], * (ABNORMAL) Basic Metabolic Panel (08/22/2025 6:57 AM EST) Sodium 128(L) 135 - 147 mmol/L 08/22/2025 7:50 AM EST [facility] Potassium 3.9 3.5 - 5.4 mmol/L 08/22/2025 7:50 AM EST [facility] Chloride 94(L) 96 - 108 mmol/L 08/22/2025 7:50 AM EST [facility] Total CO2/Bicarbonat e 29 22 - 32 mmol/L 08/22/2025 7:50 AM EST [facility] Anion Gap 5 4 - 16 mmol/L 08/22/2025 7:50 AM EST [facility] BUN 30(H) 6 - 20 mg/dL 08/22/2025 7:50 AM EST [facility] Creatinine, Blood 0.40 0.40 - 1.10 mg/dL 08/22/2025 7:50 AM EST [facility] Glucose, Blood 128(H) 70 - 100 mg/dL 08/22/2025 7:50 AM EST [facility] Calcium 8.4 8.4 - 10.3 mg/dL 08/22/2025 7:50 AM EST [facility] Blood PERIPHERAL BLOOD SPECIMEN / Unknown Venipuncture / Unknown 08/22/2025 6:57 AM EST 08/22/2025 7:05 AM EST us Albin Puentes DO LAB BLOOD ORDERABLES Final Resul t Performing Organization Address City/[facility]/ZIP Co de Phone Number [facility] [address] [facility] [place] [address], [place] * (ABNORMAL) C-Reactive Protein (08/22/2025 6:57 AM EST) C-Reactive Protein (CRP) 208.0(H) 0.0 - 5.0 mg/L 08/22/2025 7:56 AM EST [facility] Blood PERIPHERAL BLOOD SPECIMEN / Unknown Venipuncture / Unknown 08/22/2025 6:57 AM EST 08/22/2025 7:05 AM EST us Albin Puentes DO LAB BLOOD ORDERABLES Final Resul t Performing Organization Address City/[facility] Co de Phone Number [facility] [address] [facility] [place] [address], [place] * Magnesium (08/22/2025 6:57 AM EST) Magnesium, Blood 2.2 1.6 - 2.6 mg/dL 08/22/2025 7:50 AM EST [facility] Blood PERIPHERAL BLOOD SPECIMEN / Unknown Venipuncture / Unknown 08/22/2025 6:57 AM EST 08/22/2025 7:05 AM EST us Albin Puentes DO LAB BLOOD ORDERABLES Final Resul t Performing Organization Address City/[facility] Co de Phone Number [facility] [address] [facility] [place] [address], [place] * (ABNORMAL) CBC (08/22/2025 6:57 AM EST) WBC 8.36 4.00 - 10.00 K/uL 08/22/2025 7:17 AM [facility] AP RBC 3.19(L) 3.90 - 5.20 M/uL 08/22/2025 7:17 AM [facility] AP Hemoglobin 9.0(L) 11.2 - 15.7 g/dL 08/22/2025 7:17 AM [facility] Hematocrit 28.0(L) 34.0 - 45.0 % 08/22/2025 7:17 AM [facility] AP MCV 88 82 - 98 fL 08/22/2025 7:17 AM [facility] AP MCH 28.2 26.0 - 32.0 pg 08/22/2025 7:17 AM [facility] AP MCHC 32.1 32.0 - 37.0 g/dL 08/22/2025 7:17 AM [facility] AP RDW 15.0 10.5 - 15.5 % 08/22/2025 7:17 AM [facility] AP RDW-SD 48.9(H) 35.1 - 46.3 fL 08/22/2025 7:17 AM [facility] AP Platelet Count 284 150 - 400 K/uL 08/22/2025 7:17 AM [facility] AP Nucleated RBC 0 <=0 #/100 WBC 08/22/2025 7:17 AM [facility] AP Blood PERIPHERAL BLOOD SPECIMEN / Unknown Venipuncture / Unknown 08/22/2025 6:57 AM EST 08/22/2025 7:05 AM EST us Albin Puentes DO LAB BLOOD ORDERABLES Final Resul t [facility] AP [address] [place] [address], [place] * Lipase (08/22/2025 6:57 AM EST) Lipase 11 0 - 60 U/L 08/22/2025 7:50 AM [facility] Blood PERIPHERAL BLOOD SPECIMEN / Unknown Venipuncture / Unknown 08/22/2025 6:57 AM EST 08/22/2025 7:05 AM EST Madeleine Rivas MD LAB BLOOD ORDERABLES Fin al Result Performing Organization Address [facility] de Phone Number [facility] [address] [facility] [place] [address], [place] * Heparin Assay (Unfractionated Heparin) (08/22/2025 6:57 AM EST) Heparin Assay 0.49 0.30 - 0.70 IU/mL 08/22/2025 7:46 AM EST [facility] Blood PERIPHERAL BLOOD SPECIMEN / Unknown Venipuncture / Unknown 08/22/2025 6:57 AM EST 08/22/2025 7:05 AM EST Sunita Avery MD LAB BLOOD ORDERABLES Final Resul t Performing Organization Address [facility] de Phone Number [facility] [address] [facility] [place] [address], [place] * (ABNORMAL) APTT (08/22/2025 6:57 AM EST) PTT 75(H) 25 - 36 s 08/22/2025 7:46 AM EST [facility] Blood PERIPHERAL BLOOD SPECIMEN / Unknown Venipuncture / Unknown 08/22/2025 6:57 AM EST 08/22/2025 7:05 AM EST Albin Puentes DO LAB BLOOD ORDERABLES Final Resul t Performing Organization Address City/[facility] de Phone Number [facility] [address] [facility] [place] [address], [place] * (ABNORMAL) Prothrombin Time - INR (08/22/2025 6:57 AM EST) Prothrombin Time 13.3(H) 9.4 - 12.5 s 08/22/2025 7:46 AM EST [facility] INR 1.2(H) 0.9 - 1.1 08/22/2025 7:46 AM EST [facility] Blood PERIPHERAL BLOOD SPECIMEN / Unknown Venipuncture / Unknown 08/22/2025 6:57 AM EST 08/22/2025 7:05 AM EST us Albin Puentes DO LAB BLOOD ORDERABLES Final Resul t [facility] [address] [place] [address], * ECG 12 lead, to be obtained, dyspnea (08/21/2025 10:27 PM EST) Ventricular Heart Rate 82 BPM EKG [facility] Atrial Heart Rate 82 BPM EKG [facility] UT Interval 180 ms EKG [facility] QRSD Interval 108 ms EKG [facility] QT Interval 382 ms EKG [facility] QTC Interval 446 ms EKG [facility] P [place] 85 degrees EKG [facility] R [place] 91 degrees EKG [facility] T Wave [place] 2 degrees EKG [facility] 08/21/2025 10:2 5 PM EST 08/22/2025 11:25 PM EST Narrative EKG [facility] - 08/22/2025 11:25 PM EST Sinus rhythm with premature atrial depolarizations Right axis deviation When compared with ECG of 19-Aug-2025 17:25, Questionable change in QRS axis ST no longer elevated in Anterior leads Procedure Note Pauline Desouza MD - 08/22/2025 Sinus rhythm with premature atrial depolarizations Right axis deviation When compared with ECG of 19-Aug-2025 17:25, Questionable change in QRS axis ST no longer elevated in Anterior leads us Shelley Roblero MD ECG ORDERABLES Final Result Performing Organization Address City/[facility]/ZIP Co de Phone Number EKG [facility] [address] [place] [address] * Heparin Assay (Unfractionated Heparin) (08/21/2025 1:28 PM EST) Heparin Assay 0.48 0.30 - 0.70 IU/mL 08/21/2025 2:28 PM EST [facility] Blood PERIPHERAL BLOOD SPECIMEN / Unknown Venipuncture / Unknown 08/21/2025 1:28 PM EST 08/21/2025 1:57 PM EST Sunita Avery MD LAB BLOOD ORDERABLES Final Resul t Performing Organization Address [facility] Co de Phone Number [facility] [address] [facility] [place] [address], * Heparin Assay (Unfractionated Heparin) (08/21/2025 7:00 AM EST) [facility] Heparin Assay 0.49 0.30 - 0.70 IU/mL 08/21/2025 8:02 AM EST [facility] Blood PERIPHERAL BLOOD SPECIMEN / Unknown Venipuncture / Unknown 08/21/2025 7:00 AM EST 08/21/2025 7:21 AM EST Madeleine Rivas MD LAB BLOOD ORDERABLES Fin al Result Performing Organization Address [facility] [place] [address], * (ABNORMAL) Basic Metabolic Panel (08/21/2025 7:00 AM EST) [facility] Sodium 132(L) 135 - 147 mmol/L 08/21/2025 8:03 AM EST [facility] Potassium 3.8 3.5 - 5.4 mmol/L 08/21/2025 8:03 AM EST [facility] Chloride 96 96 - 108 mmol/L 08/21/2025 8:03 AM EST [facility] Total CO2/Bicarbonat e 27 22 - 32 mmol/L 08/21/2025 8:03 AM [facility] Anion Gap 9 4 - 16 mmol/L 08/21/2025 8:03 AM [facility] BUN 29(H) 6 - 20 mg/dL 08/21/2025 8:03 AM [facility] Creatinine, Blood 0.40 0.40 - 1.10 mg/dL 08/21/2025 8:03 AM EST [facility] Glucose, Blood 124(H) 70 - 100 mg/dL 08/21/2025 8:03 AM EST [facility] Calcium 8.3(L) 8.4 - 10.3 mg/dL 08/21/2025 8:03 AM EST [facility] Blood PERIPHERAL BLOOD SPECIMEN / Unknown Venipuncture / Unknown 08/21/2025 7:00 AM EST 08/21/2025 7:22 AM EST us Albin Puentes DO LAB BLOOD ORDERABLES Final Resul t Performing Organization Address City/[facility] Co de Phone Number [facility] [address] [facility] [place] [address], [place] * (ABNORMAL) C-Reactive Protein (08/21/2025 7:00 AM EST) C-Reactive Protein (CRP) 255.0(H) 0.0 - 5.0 mg/L 08/21/2025 8:27 AM EST [facility] Blood PERIPHERAL BLOOD SPECIMEN / Unknown Venipuncture / Unknown 08/21/2025 7:00 AM EST 08/21/2025 7:22 AM EST us Albin Puentes DO LAB BLOOD ORDERABLES Final Resul t Performing Organization Address City/[facility]/ZIP Co de Phone Number [facility] [address] [facility] [place] [address], [place] * Magnesium (08/21/2025 7:00 AM EST) Magnesium, Blood 1.9 1.6 - 2.6 mg/dL 08/21/2025 8:02 AM EST [facility] Blood PERIPHERAL BLOOD SPECIMEN / Unknown Venipuncture / Unknown 08/21/2025 7:00 AM EST 08/21/2025 7:22 AM EST us Albin Puentes DO LAB BLOOD ORDERABLES Final Resul t [facility] [address] [facility] [place] [address], [place] * (ABNORMAL) CBC (08/21/2025 7:00 AM EST) WBC 9.58 4.00 - 10.00 K/uL 08/21/2025 7:50 AM EST [facility] AP RBC 3.04(L) 3.90 - 5.20 M/uL 08/21/2025 7:50 AM EST [facility] AP Hemoglobin 8.4(L) 11.2 - 15.7 g/dL 08/21/2025 7:50 AM EST [facility] AP Hematocrit 27.1(L) 34.0 - 45.0 % 08/21/2025 7:50 AM EST [facility] AP MCV 89 82 - 98 fL 08/21/2025 7:50 AM EST [facility] AP MCH 27.6 26.0 - 32.0 pg 08/21/2025 7:50 AM EST [facility] AP MCHC 31.0(L) 32.0 - 37.0 g/dL 08/21/2025 7:50 AM EST [facility] AP RDW 15.2 10.5 - 15.5 % 08/21/2025 7:50 AM EST [facility] AP RDW-SD 48.6(H) 35.1 - 46.3 fL 08/21/2025 7:50 AM EST [facility] AP Platelet Count 270 150 - 400 K/uL 08/21/2025 7:50 AM EST [facility] AP Nucleated RBC 0 <=0 #/100 WBC 08/21/2025 7:50 AM EST [facility] AP Blood PERIPHERAL BLOOD SPECIMEN / Unknown Venipuncture / Unknown 08/21/2025 7:00 AM EST 08/21/2025 7:21 AM EST us Albin Puentes DO LAB BLOOD ORDERABLES Final Resul t [facility] AP [address] [place] [address], [place] * (ABNORMAL) Heparin Assay (Unfractionated Heparin) (08/21/2025 12:37 AM EST) Heparin Assay 0.22(L) 0.30 - 0.70 IU/mL 08/21/2025 1:29 AM EST [facility] Blood PERIPHERAL BLOOD SPECIMEN / Unknown Venipuncture / Unknown 08/21/2025 12:37 AM EST 08/21/2025 12:42 AM EST Jaciel Mosquera MD LAB BLOOD ORDERABLES F inal Result Performing Organization Address [facility] Co de Phone Number [facility] [address] [place] [address], * (ABNORMAL) Heparin Assay (Unfractionated Heparin) (08/20/2025 3:21 PM EST) Heparin Assay 1.56(H) 0.30 - 0.70 IU/mL 08/20/2025 3:43 PM EST [facility] Blood PERIPHERAL BLOOD SPECIMEN / Unknown Venipuncture / Unknown 08/20/2025 3:21 PM EST 08/20/2025 3:27 PM EST Albin Puentes DO LAB BLOOD ORDERABLES Final Resul t Performing Organization Address [facility] de Phone Number [facility] [address] [place] [address], * [place] Upper Extremity Venous Bilateral (08/20/2025 9:51 AM EST) Anatomical Region Laterality Modality Arm Bilateral Ultrasound 08/20/2025 9:59 AM EST Impressions 08/20/2025 10:38 AM EST 1. Nonocclusive deep vein thrombus of the right axillary vein. 2. This study only assessed bilateral subclavian, right internal jugular, right brachial, and right axillary veins. The rest of upper extremities were not assessed as the patient was unable to tolerate the exam due to pain. NOTIFICATION: The findings were discussed with, and acknowledged by Dr. Albin Puentes by Dr. Sherry Valladares, using [employer] Chat on 08/20/2025 at 9:53 am, 3 minutes after discovery of the findings. BY ELECTRONICALLY SIGNING THIS REPORT, I THE ATTENDING PHYSICIAN ATTEST THAT I HAVE REVIEWED THE IMAGES FOR THE ABOVE PROCEDURE(S) AND AGREE WITH THE FINDINGS DOCUMENTED. Sherry Gomez MD, electronically signed on Aug 20 2025 10:38AM Narrative 08/20/2025 10:38 AM EST EXAMINATION: US UPPER EXTREMITY VENOUS BILATERAL INDICATION: Edema, pain/tenderness TECHNIQUE: Mullen scale and Doppler evaluation was performed on the bilateral upper extremity veins. COMPARISON: None. FINDINGS: There is normal flow with respiratory variation in the bilateral subclavian veins. The right internal jugular vein is patent, shows normal color flow, spectral doppler, and compressibility. The right brachial veins are patent and show compressibility. The right axillary vein is not compressible and does not show normal [id number] color flow, consistent with nonocclusive thrombus in the right axillary vein. The rest of the exam was not performed as the patient was unable to tolerate the exam due to pain. Procedure Note Katlin Gomez MD - 08/20/2025 EXAMINATION: US UPPER EXTREMITY VENOUS BILATERAL INDICATION: Edema, pain/tenderness TECHNIQUE: Mullen scale and Doppler evaluation was performed on the bilateral upper extremity veins. COMPARISON: None. FINDINGS: There is normal flow with respiratory variation in the bilateral subclavian veins. The right internal jugular vein is patent, shows normal color flow, spectral doppler, and compressibility. The right brachial veins are patent and show compressibility. The right axillary vein is not compressible and does not show normal [id number] color flow, consistent with nonocclusive thrombus in the right axillary vein. The rest of the exam was not performed as the patient was unable to tolerate the exam due to pain. IMPRESSION: 1. Nonocclusive deep vein thrombus of the right axillary vein. 2. This study only assessed bilateral subclavian, right internal jugular, right brachial, and right axillary veins. The rest of upper extremities were not assessed as the patient was unable to tolerate the exam due to pain. NOTIFICATION: The findings were discussed with, and acknowledged by Dr. Albin Puentes by Dr. Sherry Valladares, using [employer] on 08/20/2025 at 9:53 am, 3 minutes after discovery of the findings. BY ELECTRONICALLY SIGNING THIS REPORT, I THE ATTENDING PHYSICIAN ATTEST THAT I HAVE REVIEWED THE IMAGES FOR THE ABOVE PROCEDURE(S) AND AGREE WITH THE FINDINGS DOCUMENTED. Sherry Gomez MD, electronically signed on Aug 20 2025 10:38AM us Albin Puentes DO IMG US ORDERABLES Final Result * (ABNORMAL) Heparin Assay (Unfractionated Heparin) (08/20/2025 7:32 AM EST) Heparin Assay <0.04(L) 0.30 - 0.70 IU/mL 08/20/2025 11:58 AM EST [facility] Blood PERIPHERAL BLOOD SPECIMEN / Unknown Venipuncture / Unknown 08/20/2025 7:32 AM EST 08/20/2025 7:35 AM EST Albin Puentes DO LAB BLOOD ORDERABLES Final Resul t Performing Organization Address City/[facility]/ZIP Co de Phone Number [facility] [address] [place] [address], [place] * APTT (08/20/2025 7:32 AM EST) PTT 26 25 - 36 s 08/20/2025 11:58 AM EST [facility] Blood PERIPHERAL BLOOD SPECIMEN / Unknown Venipuncture / Unknown 08/20/2025 7:32 AM EST 08/20/2025 7:35 AM EST Albin Puentes DO LAB BLOOD ORDERABLES Final Resul t [facility] [address] [place] [address], [place] * Phosphorus (08/20/2025 7:32 AM EST) Phosphorus 3.1 2.7 - 4.5 mg/dL 08/20/2025 8:13 AM EST [facility] Blood PERIPHERAL BLOOD SPECIMEN / Unknown Venipuncture / Unknown 08/20/2025 7:32 AM EST 08/20/2025 7:35 AM EST us Albin Y Puentes DO LAB BLOOD ORDERABLES Final Resul t Performing Organization Address City/[facility]/ZIP Co de Phone Number [facility] [address] [place] [address], [place] * (ABNORMAL) C-Reactive Protein (08/20/2025 7:32 AM EST) C-Reactive Protein (CRP) 293.0(H) 0.0 - 5.0 mg/L 08/20/2025 8:25 AM EST [facility] Blood PERIPHERAL BLOOD SPECIMEN / Unknown Venipuncture / Unknown 08/20/2025 7:32 AM EST 08/20/2025 7:35 AM EST us Albin Puentes DO LAB BLOOD ORDERABLES Final Resul t Performing Organization Address City/[facility]/ZIP Co de Phone Number [facility] [address] [place] [address], [place] * Magnesium (08/20/2025 7:32 AM EST) Pathologist [facility] Magnesium, Blood 1.9 1.6 - 2.6 mg/dL 08/20/2025 8:13 AM EST [facility] Blood PERIPHERAL BLOOD SPECIMEN / Unknown Venipuncture / Unknown 08/20/2025 7:32 AM EST 08/20/2025 7:35 AM EST us Albin Puentes DO LAB BLOOD ORDERABLES Final Resul t Performing Organization Address City/[facility]/ZIP Co de Phone Number [facility] [address] [place] [address], [place] * (ABNORMAL) Comprehensive Metabolic Panel (08/20/2025 7:32 AM EST) Sodium 132(L) 135 - 147 mmol/L 08/20/2025 8:13 AM EST [facility] Potassium 3.9 3.5 - 5.4 mmol/L 08/20/2025 8:13 AM EST [facility] Chloride 98 96 - 108 mmol/L 08/20/2025 8:13 AM EST [facility] Total CO2/Bicarbonate 24 22 - 32 mmol/L 08/20/2025 8:13 AM EST [facility] Anion Gap 10 4 - 16 mmol/L 08/20/2025 8:13 AM [facility] BUN 29(H) 6 - 20 mg/dL 08/20/2025 8:13 AM [facility] Creatinine, Blood 0.50 0.40 - 1.10 mg/dL 08/20/2025 8:13 AM [facility] Glucose, Blood 124(H) 70 - 100 mg/dL 08/20/2025 8:13 AM EST [facility] Calcium 8.3(L) 8.4 - 10.3 mg/dL 08/20/2025 8:13 AM [facility] Total Protein 6.2(L) 6.4 - 8.3 g/dL 08/20/2025 8:13 AM [facility] Albumin, Blood 2.6(L) 3.5 - 5.2 g/dL 08/20/2025 8:13 AM [facility] Globulin Result 3.6 2.0 - 4.0 g/dL 08/20/2025 8:13 AM [facility] AST (SGOT) 26 0 - 40 U/L 08/20/2025 8:13 AM [facility] ALT (SGPT) 17 0 - 40 U/L 08/20/2025 8:13 AM [facility] Alkaline Phosphatase 156(H) 35 - 105 U/L 08/20/2025 8:13 AM [facility] Total Bilirubin 0.8 0.0 - 1.5 mg/dL 08/20/2025 8:13 AM [facility] Blood PERIPHERAL BLOOD SPECIMEN / Unknown Venipuncture / Unknown 08/20/2025 7:32 AM EST 08/20/2025 7:35 AM EST us Albin Puentes DO LAB BLOOD ORDERABLES Final Resul t [facility] [address] [place] [address], [place] * (ABNORMAL) Prothrombin Time - INR (08/20/2025 7:32 AM EST) Prothrombin Time 13.7(H) 9.4 - 12.5 s 08/20/2025 8:03 AM EST [facility] INR 1.2(H) 0.9 - 1.1 08/20/2025 8:03 AM EST [facility] Blood PERIPHERAL BLOOD SPECIMEN / Unknown Venipuncture / Unknown 08/20/2025 7:32 AM EST 08/20/2025 7:35 AM EST Albin Puentes DO LAB BLOOD ORDERABLES Final Resul t Performing Organization Address [facility] Co de Phone Number [facility] [address] [place] [address], [place] * (ABNORMAL) hs-Troponin T, 1hr (08/20/2025 7:32 AM EST) Troponin T HS 25(H) <=19 ng/L 08/20/2025 8:08 AM EST [facility] Comment: hs-cTnT<=19 ng/L in 99% of healthy individuals. hs-cTnT values of 30, 52, 100 and 1000 ng/L correspond to approximately DONNA Gen 4 of 0.01, 0.03, 0.1 and 1 ng/mL Blood PERIPHERAL BLOOD SPECIMEN / Unknown Venipuncture / Unknown 08/20/2025 7:32 AM EST 08/20/2025 7:35 AM EST Shelley Roblero MD LAB BLOOD ORDERABLES Final Resu lt Performing Organization Address City/[facility]/ZIP Co de Phone Number [facility] [address] [place] [address], [place] * BB Retype (08/20/2025 7:32 AM EST) BB RETYPE Received 08/20/2025 5:03 PM EST [facility] Blood Venipuncture / Unknown 08/20/2025 7:32 AM EST 08/20/2025 8:02 AM EST Shelley Roblero MD BLOOD BANK TEST ORDERABLES Aysha l Result Performing Organization Address City/[facility]/ZIP Co de Phone Number [facility] [address] [place] [address], [place] * (ABNORMAL) CBC (08/20/2025 7:31 AM EST) WBC 11.40(H) 4.00 - 10.00 K/uL 08/20/2025 7:41 AM EST [facility] RBC 3.20(L) 3.90 - 5.20 M/uL 08/20/2025 7:41 AM EST [facility] Hemoglobin 9.0(L) 11.2 - 15.7 g/dL 08/20/2025 7:41 AM EST [facility] Hematocrit 28.7(L) 34.0 - 45.0 % 08/20/2025 7:41 AM EST [facility] MCV 90 82 - 98 fL 08/20/2025 7:41 AM EST [facility] MCH 28.1 26.0 - 32.0 pg 08/20/2025 7:41 AM EST [facility] MCHC 31.4(L) 32.0 - 37.0 g/dL 08/20/2025 7:41 AM EST [facility] RDW 15.2 10.5 - 15.5 % 08/20/2025 7:41 AM EST [facility] RDW-SD 50.0(H) 35.1 - 46.3 fL 08/20/2025 7:41 AM EST [facility] Platelet Count 263 150 - 400 K/uL 08/20/2025 7:41 AM EST [facility] Nucleated RBC 0 <=0 #/100 WBC 08/20/2025 7:41 AM EST [facility] Blood PERIPHERAL BLOOD SPECIMEN / Unknown Venipuncture / Unknown 08/20/2025 7:31 AM EST 08/20/2025 7:35 AM EST us Albin Puentes DO LAB BLOOD ORDERABLES Final Resul t [facility] [address] [place] [address], [place] * CT Shoulder Left Without Contrast (08/20/2025 5:09 AM EST) Anatomical Region Laterality Modality Shoulder Left Computed Tomogra phy 08/20/2025 6:45 AM EST Impressions 08/21/2025 10:44 AM EST 1. Complete transverse comminuted displaced, impacted fracture involving neck of the humerus extending into inferior articular surface humeral head and greater tuberosity 2. Compression fracture of indeterminate age T1 vertebral body and possible superior endplate compression of T2. 3. Consolidative opacity in the left lower lobe is partially visualized. Few nodular opacity in left upper lung. These findings are better evaluated in recent CT pulmonary angiography. If clinically indicated consider CT chest follow-up in 3 months. BY ELECTRONICALLY SIGNING THIS REPORT, I THE ATTENDING PHYSICIAN ATTEST THAT I HAVE REVIEWED THE IMAGES FOR THE ABOVE PROCEDURE(S) AND AGREE WITH THE FINDINGS DOCUMENTED. Guy Hummel MD, electronically signed on Aug 21 2025 10:44AM Narrative 08/21/2025 10:44 AM EST EXAMINATION: CT SHOULDER LEFT WO CONTRAST INDICATION: shoulder pain; TECHNIQUE: MDCT images of the left shoulder were obtained without contrast. Coronal and sagittal reformats were obtained. DOSE: Acquisition sequence: 1) Spiral Acquisition 5.0 s, 23.0 cm; CTDIvol = 13.3 mGy (Body) DLP = 306.2 mGy-cm Total DLP (Body) = 306 mGy-cm COMPARISON: Radiograph of left shoulder dated August [address] pulmonary angiography dated August 19. FINDINGS: BONES: Mild diffuse osseous demineralization. There is a complete transverse comminuted displaced fracture involving the neck of the humerus. The fracture line is seen extending into inferior articular surface of the humeral head as well as the greater tuberosity. There is almost half shaft width anterior displacement of the distal fracture fragment with mild superior migration (approximately 1.9 cm) and impaction. The glenohumeral alignment is well-maintained. No suspicious focal osseous lesion is seen. Note is made of compression fracture of indeterminate age T1 vertebral body and possible superior endplate compression of T2. Visualized ribs do not show any overt fracture, however the evaluation is limited by subtle motion artifacts. SOFT TISSUES: Mild soft tissue edema surrounding the shoulder joint. No localized fluid collection or any hematoma formation. No effusion or evidence of tendon entrapment. No disproportionate muscle atrophy. OTHER: Note is made of severe centrilobular emphysema in visualized lungs. Consolidative opacity in the left lower lobe is partially visualized. Few nodular opacity in left upper lung. 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 These findings are better evaluated in recent CT pulmonary angiography Procedure Note Carlos A Sawyer MD - 08/21/2025 EXAMINATION: CT SHOULDER LEFT WO CONTRAST INDICATION: shoulder pain; TECHNIQUE: MDCT images of the left shoulder were obtained without contrast. Coronal and sagittal reformats were obtained. DOSE: Acquisition sequence: 1) Spiral Acquisition 5.0 s, 23.0 cm; CTDIvol = 13.3 mGy (Body) DLP = 306.2 mGy-cm Total DLP (Body) = 306 mGy-cm COMPARISON: Radiograph of left shoulder dated August [address] pulmonary angiography dated August 19. FINDINGS: BONES: Mild diffuse osseous demineralization. There is a complete transverse comminuted displaced fracture involving the neck of the humerus. The fracture line is seen extending into inferior articular surface of the humeral head as well as the greater tuberosity. There is almost half shaft width anterior displacement of the distal fracture fragment with mild superior migration (approximately 1.9 cm) and impaction. The glenohumeral alignment is well-maintained. No suspicious focal osseous lesion is seen. Note is made of compression fracture of indeterminate age T1 vertebral body and possible superior endplate compression of T2. Visualized ribs do not show any overt fracture, however the evaluation is limited by subtle motion artifacts. SOFT TISSUES: Mild soft tissue edema surrounding the shoulder joint. No localized fluid collection or any hematoma formation. No effusion or evidence of tendon entrapment. No disproportionate muscle atrophy. OTHER: Note is made of severe centrilobular emphysema in visualized lungs. Consolidative opacity in the left lower lobe is partially visualized. Few nodular opacity in left upper lung. 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 These findings are better evaluated in recent CT pulmonary angiography IMPRESSION: 1. Complete transverse comminuted displaced, impacted fracture involving neck of the humerus extending into inferior articular surface humeral head and greater tuberosity 2. Compression fracture of indeterminate age T1 vertebral body and possible superior endplate compression of T2. 3. Consolidative opacity in the left lower lobe is partially visualized. Few nodular opacity in left upper lung. These findings are better evaluated in recent CT pulmonary angiography. If clinically indicated consider CT chest follow-up in 3 months. BY ELECTRONICALLY SIGNING THIS REPORT, I THE ATTENDING PHYSICIAN ATTEST THAT I HAVE REVIEWED THE IMAGES FOR THE ABOVE PROCEDURE(S) AND AGREE WITH THE FINDINGS DOCUMENTED. Guy Hummel MD, electronically signed on Aug 21 2025 10:44AM Shelley Roblero MD IMG CT ORDERABLES Final Result * Lactic Acid with 3 Hour Reflex (08/20/2025 4:23 AM EST) Lactic Acid 0.8 0.5 - 2.0 mmol/L 08/20/2025 4:26 AM EST [facility] Blood PERIPHERAL BLOOD SPECIMEN / Unknown Venipuncture / Unknown 08/20/2025 4:23 AM EST 08/20/2025 4:25 AM EST Jailyn Arreola MD LAB BLOOD ORDERABLES Aysha l Result [facility] [address] [place] [address], [place] * XR Elbow 3+ VW Left (08/19/2025 8:43 PM EST) Anatomical Region Laterality Modality Elbow Left Digital Radiogra phy 08/19/2025 9:06 PM EST Impressions 08/19/2025 10:24 PM EST No acute fracture or dislocation involving either elbow. Akanksha Ríos MD, electronically signed on Aug 19 2025 10:24PM Narrative 08/19/2025 10:24 PM EST INDICATION: elbow pain; TECHNIQUE: AP and lateral views of the elbows bilaterally COMPARISON: None. FINDINGS: On the left, no acute fracture or dislocation. No elbow joint effusion. Mild degenerative changes of the humeroulnar joint. No concerning lytic or sclerotic osseous abnormality. No embedded radiopaque foreign body or soft tissue calcification. On the right, no acute fracture or dislocation. No elbow joint effusion. Mild degenerative changes of the ulnohumeral joint. No suspicious lytic or sclerotic osseous abnormality. Mild soft tissue irregularity is seen along the dorsal aspect of the elbow. Procedure Note Akanksha Ríos MD - 08/19/2025 INDICATION: elbow pain; TECHNIQUE: AP and lateral views of the elbows bilaterally COMPARISON: None. FINDINGS: On the left, no acute fracture or dislocation. No elbow joint effusion. Mild degenerative changes of the humeroulnar joint. No concerning lytic or sclerotic osseous abnormality. No embedded radiopaque foreign body or soft tissue calcification. On the right, no acute fracture or dislocation. No elbow joint effusion. Mild degenerative changes of the ulnohumeral joint. No suspicious lytic or sclerotic osseous abnormality. Mild soft tissue irregularity is seen along the dorsal aspect of the elbow. IMPRESSION: No acute fracture or dislocation involving either elbow. 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 No acute fracture. Akanksha Ríos MD, electronically signed on Aug 19 2025 10:25PM Narrative 08/19/2025 10:25 PM EST INDICATION: s/p fall, surgery, pain, swelling ?fx; TECHNIQUE: Right shoulder, three views COMPARISON: CT chest 07 August 2025 and right shoulder radiographs 14 August 2025 FINDINGS: Status post right shoulder arthroplasty with persistent anterior, medial and inferior displacement of the humeral head component relative to the glenoid. No acute fracture. Acromioclavicular joint demonstrates mild degenerative changes. Fragmentation of the acromion appears chronic. No periarticular soft tissue calcifications. Severe emphysema is noted in the imaged right lung. Procedure Note Akanksha Ríos MD - 08/19/2025 INDICATION: s/p fall, surgery, pain, swelling ?fx; TECHNIQUE: Right shoulder, three views COMPARISON: CT chest 07 August 2025 and right shoulder radiographs 14 August 2025 FINDINGS: Status post right shoulder arthroplasty with persistent anterior, medial and inferior displacement of the humeral head component relative to the glenoid. No acute fracture. Acromioclavicular joint demonstrates mild degenerative changes. Fragmentation of the acromion appears chronic. No periarticular soft tissue calcifications. Severe emphysema is noted in the imaged right lung. 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 No acute fracture. Akanksha Ríos MD, electronically signed on Aug 19 2025 10:25PM Shelley Roblero MD IMG DIAGNOSTIC IMAGING ORDERABL ES Final Result * XR Shoulder 2+ Vw Left (08/19/2025 8:43 PM EST) Anatomical Region Laterality Modality Shoulder Left Digital Radiogra phy 08/19/2025 8:50 PM EST Impressions 08/20/2025 11:03 AM EST Comminuted and impacted left proximal humeral fracture involving the humeral head and surgical neck. No dislocation. Akanksha Ríos MD, electronically signed on Aug 20 2025 11:03AM Narrative 08/20/2025 11:03 AM EST INDICATION: s/p fall, surgery, pain, swelling ?fx; TECHNIQUE: Three views of the left shoulder COMPARISON: None. FINDINGS: A comminuted and impacted fracture of the left proximal humerus involves the humeral head and surgical neck. No dislocation. Glenohumeral joint is preserved. Mild joint space narrowing of the acromioclavicular joint. Imaged left lung demonstrates chain sutures from prior left upper segmentectomy. Generator pack for a pacer is seen in the left upper chest wall. Procedure Note Akanksha Ríos MD - 08/20/2025 INDICATION: s/p fall, surgery, pain, swelling ?fx; TECHNIQUE: Three views of the left shoulder COMPARISON: None. FINDINGS: A comminuted and impacted fracture of the left proximal humerus involves the humeral head and surgical neck. No dislocation. Glenohumeral joint is preserved. Mild joint space narrowing of the acromioclavicular joint. Imaged left lung demonstrates chain sutures from prior left upper segmentectomy. Generator pack for a pacer is seen in the left upper chest wall. IMPRESSION: Comminuted and impacted left proximal humeral fracture involving the humeral head and surgical neck. No dislocation. Akanksha Ríos MD, electronically signed on Aug 20 2025 11:03AM us Shelley PARKS DIAGNOSTIC IMAGING ORDERABL ES Final Result * XR Elbow 3+ VW Right (08/19/2025 8:43 PM EST) Anatomical Region Laterality Modality Elbow Right Digital Radiogra phy 08/19/2025 9:06 PM EST Impressions 08/19/2025 10:24 PM EST No acute fracture or dislocation involving either elbow. Akanksha Ríos MD, electronically signed on Aug 19 2025 10:24PM Narrative 08/19/2025 10:24 PM EST INDICATION: elbow pain; TECHNIQUE: AP and lateral views of the elbows bilaterally COMPARISON: None. FINDINGS: On the left, no acute fracture or dislocation. No elbow joint effusion. Mild degenerative changes of the humeroulnar joint. No concerning lytic or sclerotic osseous abnormality. No embedded radiopaque foreign body or soft tissue calcification. On the right, no acute fracture or dislocation. No elbow joint effusion. Mild degenerative changes of the ulnohumeral joint. No suspicious lytic or sclerotic osseous abnormality. Mild soft tissue irregularity is seen along the dorsal aspect of the elbow. Procedure Note Akanksha Ríos MD - 08/19/2025 INDICATION: elbow pain; TECHNIQUE: AP and lateral views of the elbows bilaterally COMPARISON: None. FINDINGS: On the left, no acute fracture or dislocation. No elbow joint effusion. Mild degenerative changes of the humeroulnar joint. No concerning lytic or sclerotic osseous abnormality. No embedded radiopaque foreign body or soft tissue calcification. On the right, no acute fracture or dislocation. No elbow joint effusion. Mild degenerative changes of the ulnohumeral joint. No suspicious lytic or sclerotic osseous abnormality. Mild soft tissue irregularity is seen along the dorsal aspect of the elbow. IMPRESSION: No acute fracture or dislocation involving either elbow. Akanksha Ríos MD, electronically signed on Aug 19 2025 10:24PM us Shelley AKHTAR DIAGNOSTIC IMAGING ORDERABL ES Final Result * XR Chest 1 Vw Portable (08/19/2025 8:43 PM EST) Anatomical Region Laterality Modality Chest Digital Radiogra phy 08/19/2025 8:46 PM EST Impressions 08/19/2025 10:25 PM EST Patchy bilateral lower lobe opacities suggesting pneumonia as seen on prior CT. Partially imaged comminuted left proximal humeral fracture and anteriorly dislocated humeral component of a right shoulder arthroplasty. Akanksha Ríos MD, electronically signed on Aug 19 2025 10:25PM Narrative 08/19/2025 10:25 PM EST EXAMINATION: XR CHEST 1 VW PORTABLE INDICATION: sob, cough /pna; TECHNIQUE: Semi-upright AP view of the chest COMPARISON: CTA chest 19 August 2025 at 18:44 and 07 August 2025, chest radiograph 07 August 2025 FINDINGS: Left-sided pacer with leads in the right atrium and right ventricle, unchanged.Mild cardiomegaly is similar. Mediastinal and hilar contours are unchanged. No pulmonary edema. Diffuse increased interstitial opacities are again noted and related to underlying severe emphysema. Patchy airspace opacities are again noted in the lower lobes which is concerning for pneumonia. No pleural effusion or pneumothorax. No acute osseous abnormalities. Partially imaged comminuted left proximal humeral fracture. Status post right shoulder arthroplasty with the humeral head component demonstrating anterior dislocation. Contrast from recent CT examination is seen in the renal collecting systems bilaterally. Procedure Note Akanksha Ríos MD - 08/19/2025 EXAMINATION: XR CHEST 1 VW PORTABLE INDICATION: sob, cough /pna; TECHNIQUE: Semi-upright AP view of the chest COMPARISON: CTA chest 19 August 2025 at 18:44 and 07 August 2025, chest radiograph 07 August 2025 FINDINGS: Left-sided pacer with leads in the right atrium and right ventricle, unchanged.Mild cardiomegaly is similar. Mediastinal and hilar contours are unchanged. No pulmonary edema. Diffuse increased interstitial opacities are again noted and related to underlying severe emphysema. Patchy airspace opacities are again noted in the lower lobes which is concerning for pneumonia. No pleural effusion or pneumothorax. No acute osseous abnormalities. Partially imaged comminuted left proximal humeral fracture. Status post right shoulder arthroplasty with the humeral head component demonstrating anterior dislocation. Contrast from recent CT examination is seen in the renal collecting systems bilaterally. IMPRESSION: Patchy bilateral lower lobe opacities suggesting pneumonia as seen on prior CT. Partially imaged comminuted left proximal humeral fracture and anteriorly dislocated humeral component of a right shoulder arthroplasty. Akanksha Ríos MD, electronically signed on Aug 19 2025 10:25PM us Shelley Roblero MD IMG DIAGNOSTIC IMAGING ORDERABL ES Final Result * (ABNORMAL) hs-Troponin T, 3hr (08/19/2025 8:10 PM EST) Troponin T HS 23(H) <=19 ng/L 08/19/2025 9:58 PM EST [facility] Comment: hs-cTnT<=19 ng/L in 99% of healthy individuals. hs-cTnT values of 30, 52, 100 and 1000 ng/L correspond to approximately DONNA Gen 4 of 0.01, 0.03, 0.1 and 1 ng/mL Blood PERIPHERAL BLOOD SPECIMEN / Unknown Venipuncture / Unknown 08/19/2025 8:10 PM EST 08/19/2025 9:10 PM EST us Shelley Roblero MD LAB BLOOD ORDERABLES Final Resu lt [facility] [address] [place] [address], * US Lower Extremity Venous Left (08/19/2025 7:08 PM EST) Anatomical Region Laterality Modality Leg Left Ultrasound 08/19/2025 7:13 PM EST Impressions 08/19/2025 7:17 PM EST Unable to evaluate the calf veins, but there is no evidence of deep venous thrombosis in the other left lower extremity veins. BY ELECTRONICALLY SIGNING THIS REPORT, I THE ATTENDING PHYSICIAN ATTEST THAT I HAVE REVIEWED THE IMAGES FOR THE ABOVE PROCEDURE(S) AND AGREE WITH THE FINDINGS DOCUMENTED. Geo Ríos MD, electronically signed on Aug 19 2025 07:17PM Narrative 08/19/2025 7:17 PM EST EXAMINATION: US LOWER EXTREMITY VENOUS LEFT INDICATION: Left lower extremity pain and edema. TECHNIQUE: Mullen scale, color, and spectral Doppler evaluation was performed on the left lower extremity veins. The patient could not tolerate evaluation of the calf veins. COMPARISON: None. FINDINGS: There is normal compressibility, color flow, and spectral doppler of the left common femoral, femoral, and popliteal veins. The patient was unable to tolerate evaluation of the calf veins. There is normal respiratory variation in the common femoral veins bilaterally. No evidence of medial popliteal fossa ([place]) cyst. Procedure Note Akanksha Ríos MD - 08/19/2025 EXAMINATION: US LOWER EXTREMITY VENOUS LEFT INDICATION: Left lower extremity pain and edema. TECHNIQUE: Mullen scale, color, and spectral Doppler evaluation was performed on the left lower extremity veins. The patient could not tolerate evaluation of the calf veins. COMPARISON: None. FINDINGS: There is normal compressibility, color flow, and spectral doppler of the left common femoral, femoral, and popliteal veins. The patient was unable to tolerate evaluation of the calf veins. There is normal respiratory variation in the common femoral veins bilaterally. No evidence of medial popliteal fossa ([place]) cyst. IMPRESSION: Unable to evaluate the calf veins, but there is no evidence of deep venous thrombosis in the other left lower extremity veins. BY ELECTRONICALLY SIGNING THIS REPORT, I THE ATTENDING PHYSICIAN ATTEST THAT I HAVE REVIEWED THE IMAGES FOR THE ABOVE PROCEDURE(S) AND AGREE WITH THE FINDINGS DOCUMENTED. Geo Ríos MD, electronically signed on Aug 19 2025 07:17PM Shelley Roblero MD [facility] ORDERABLES Final Result * CT Angiogram Chest PE : Arteriogram (08/19/2025 6:49 PM EST) Anatomical Region Laterality Modality Chest Computed Tomogra phy 08/19/2025 7:15 PM EST Addenda Addendum by Akanksha Ríos MD on 08/19/2025 8:47 PM EST ADDENDUM The patient is status post right shoulder arthroplasty (not reverse shoulder arthroplasty). The anterior dislocation of the humeral head component relative to the glenoid appears similar compared to the prior CTA chest from August 07, 2025. Akanksha Ríos MD, electronically signed on Aug 19 2025 08:47PM Impressions 08/19/2025 7:13 PM EST 1. No pulmonary embolism or acute aortic pathology. 2. Severe emphysema with mild dilatation of the pulmonary artery measuring up to 3.1 cm, unchanged, which can be seen with pulmonary arterial hypertension. 3. Mild dilatation of the ascending and descending thoracic aorta, unchanged. See recommendations below. 4. Heterogeneous consolidative opacities in both lower lobes may reflect pneumonia. 5. Acute, comminuted left proximal humeral fracture. 6. Status post reverse right shoulder arthroplasty with anterior subluxation/dislocation of the humeral component relative to the glenoid. 7. Chronic compression deformities of T1 and T11 vertebral bodies. RECOMMENDATION(S): Follow-Up Imaging: Thoracic aorta 4.0 - 4.4 cm in diameter - if stable findings at 12 months or interval increase in diameter is < 3 mm, consider follow-up with ECG-gated chest CTA in 2 years. Management recommendations for follow-up of thoracic aortic aneurysm are based on existing literature and multidisciplinary consensus document of our institution, including Cardiology, Vascular Surgery, and Cardiac Surgery and it is specifically designed for this program. Siminelharmeet EM, et al. ACC/AHA Guideline for the Diagnosis and Management of Aortic Disease: A Report of the [place] [employer] [employer] Joint Committee on Clinical Practice Guidelines. Circulation 202; 146:d260-a894. Erbel R, et al. ESC Guidelines on the diagnosis of thoracic and abdominal aorta of the adult. Eur Heart J 2014;35:6075-0209. Cindy TURCIOS, et al. The Society of Vascular Surgery practice guidelines on the care of patients with an abdominal aortic aneurysm. J Vasc Surg 2018;67:2-77. Joseph V, et al. Management of Descending Thoracic Aortic Disease: Clinical Practice Guidelines of the Society of Vascular Surgery. Eur J Vasc Endovasc Surg 2017;53:4-52. Akanksha Ríos MD, electronically signed on Aug 19 2025 07:13PM Narrative 08/19/2025 7:13 PM EST EXAMINATION: CTA CHEST WITH CONTRAST INDICATION: pt w/ sob, chest pain, tachycardia; TECHNIQUE: Axial multidetector CT images were obtained through the thorax after the uneventful administration of intravenous contrast including reformatted coronal, sagittal, and oblique and axial maximal intensity projection (MIP) images. DOSE: Acquisition sequence: 1) Stationary Acquisition 0.5 s, 0.5 cm; CTDIvol = 3.0 mGy (Body) DLP = 1.5 mGy-cm 2) Stationary Acquisition 2.0 s, 0.5 cm; CTDIvol = 12.1 mGy (Body) DLP = 6.1 mGy-cm 3) Spiral Acquisition 4.1 s, 30.6 cm; CTDIvol = 8.2 mGy (Body) DLP = 252.0 mGy-cm Total DLP (Body) = 260 mGy-cm COMPARISON: CTA chest 07 August 2025 FINDINGS: VASCULATURE: Main pulmonary artery is borderline enlarged at 3.1 cm. No filling defects to the subsegmental level to indicate a pulmonary embolism. Ascending aorta demonstrates fusiform dilatation to 4.2 cm and the descending thoracic aorta is dilated up to 3.4 cm, as seen previously. No aortic dissection or intramural hematoma. HEART: Mild cardiomegaly. Pacing leads terminate within the right atrium and right ventricle. Moderate coronary artery calcifications. No significant pericardial effusion. AXILLA, MARCELL, AND MEDIASTINUM: No lymphadenopathy or mass. The esophagus is patulous which can be seen with esophageal dysmotility. PLEURAL SPACES: No pleural effusion or pneumothorax. LUNGS: Heterogeneous consolidative opacities in both lower lobes can be seen with pneumonia. Severe centrilobular emphysema is again demonstrated. AIRWAYS: Airway wall thickening suggesting inflammation is noted. Central airways are patent to the segmental bronchial level. BASE OF NECK: 5 mm rim calcified thyroid nodule is noted which does not require specific sonographic follow-up. ABDOMEN: Visualized upper abdomen unremarkable. BONES: A comminuted left proximal humeral fracture is incompletely imaged. Status post right reverse shoulder arthroplasty with anterior subluxation/dislocation of the hardware relative to the glenoid. A subacute fracture of the sternum is noted (602:74). Compression deformities of the T1 and T11 vertebral bodies are unchanged. SOFT TISSUES: Soft tissue stranding is seen within the left shoulder secondary to the humeral fracture. Procedure Note Akanksha Ríos MD - 08/19/2025 EXAMINATION: CTA CHEST WITH CONTRAST INDICATION: pt w/ sob, chest pain, tachycardia; TECHNIQUE: Axial multidetector CT images were obtained through the thorax after the uneventful administration of intravenous contrast including reformatted coronal, sagittal, and oblique and axial maximal intensity projection (MIP) images. DOSE: Acquisition sequence: 1) Stationary Acquisition 0.5 s, 0.5 cm; CTDIvol = 3.0 mGy (Body) DLP = 1.5 mGy-cm 2) Stationary Acquisition 2.0 s, 0.5 cm; CTDIvol = 12.1 mGy (Body) DLP = 6.1 mGy-cm 3) Spiral Acquisition 4.1 s, 30.6 cm; CTDIvol = 8.2 mGy (Body) DLP = 252.0 mGy-cm Total DLP (Body) = 260 mGy-cm COMPARISON: CTA chest 07 August 2025 FINDINGS: VASCULATURE: Main pulmonary artery is borderline enlarged at 3.1 cm. No filling defects to the subsegmental level to indicate a pulmonary embolism. Ascending aorta demonstrates fusiform dilatation to 4.2 cm and the descending thoracic aorta is dilated up to 3.4 cm, as seen previously. No aortic dissection or intramural hematoma. HEART: Mild cardiomegaly. Pacing leads terminate within the right atrium and right ventricle. Moderate coronary artery calcifications. No significant pericardial effusion. AXILLA, MARCELL, AND MEDIASTINUM: No lymphadenopathy or mass. The esophagus is patulous which can be seen with esophageal dysmotility. PLEURAL SPACES: No pleural effusion or pneumothorax. LUNGS: Heterogeneous consolidative opacities in both lower lobes can be seen with pneumonia. Severe centrilobular emphysema is again demonstrated. AIRWAYS: Airway wall thickening suggesting inflammation is noted. Central airways are patent to the segmental bronchial level. BASE OF NECK: 5 mm rim calcified thyroid nodule is noted which does not require specific sonographic follow-up. ABDOMEN: Visualized upper abdomen unremarkable. BONES: A comminuted left proximal humeral fracture is incompletely imaged. Status post right reverse shoulder arthroplasty with anterior subluxation/dislocation of the hardware relative to the glenoid. A subacute fracture of the sternum is noted (602:74). Compression deformities of the T1 and T11 vertebral bodies are unchanged. SOFT TISSUES: Soft tissue stranding is seen within the left shoulder secondary to the humeral fracture. IMPRESSION: 1. No pulmonary embolism or acute aortic pathology. 2. Severe emphysema with mild dilatation of the pulmonary artery measuring up to 3.1 cm, unchanged, which can be seen with pulmonary arterial hypertension. 3. Mild dilatation of the ascending and descending thoracic aorta, unchanged. See recommendations below. 4. Heterogeneous consolidative opacities in both lower lobes may reflect pneumonia. 5. Acute, comminuted left proximal humeral fracture. 6. Status post reverse right shoulder arthroplasty with anterior subluxation/dislocation of the humeral component relative to the glenoid. 7. Chronic compression deformities of T1 and T11 vertebral bodies. RECOMMENDATION(S): Follow-Up Imaging: Thoracic aorta 4.0 - 4.4 cm in diameter - if stable findings at 12 months or interval increase in diameter is < 3 mm, consider follow-up with ECG-gated chest CTA in 2 years. Management recommendations for follow-up of thoracic aortic aneurysm are based on existing literature and multidisciplinary consensus document of our institution, including Cardiology, Vascular Surgery, and Cardiac Surgery and it is specifically designed for this program. Carito EM, et al. ACC/AHA Guideline for the Diagnosis and Management of Aortic Disease: A Report of the [place] [employer] Joint Committee on Clinical Practice Guidelines. Circulation 2022; 146:j106-k991. Tracey R, et al. ESC Guidelines on the diagnosis of thoracic and abdominal aorta of the adult. Eur Heart J 2014;35:9460-2666. Cindy TURCIOS et al. The Society of Vascular Surgery practice guidelines on the care of patients with an abdominal aortic aneurysm. J Vasc Surg 2018;67:2-77. Joseph V, et al. Management of Descending Thoracic Aortic Disease: Clinical Practice Guidelines of the Society of Vascular Surgery. Eur J Vasc Endovasc Surg 2017;53:4-52. Akanksha Ríos MD, electronically signed on Aug 19 2025 07:13PM Shelley Roblero MD IM CT ORDERABLES Edited Result - Final * CT Cervical Spine Without Contrast (08/19/2025 6:49 PM EST) Anatomical Region Laterality Modality Cervical Spine Computed Tomogra phy 08/19/2025 6:58 PM EST Impressions 08/19/2025 6:57 PM EST 1. No acute cervical spine fracture or traumatic malalignment. 2. Left proximal humeral fracture imaged on the biochemistry teacher view. 3. Chronic compression deformity of the T1 vertebral body. Akanksha Ríos MD, electronically signed on Aug 19 2025 06:57PM Narrative 08/19/2025 6:57 PM EST EXAMINATION: CT CERVICAL SPINE WO CONTRAST INDICATION: s/p fall; TECHNIQUE: Contiguous axial images obtained through the cervical spine without intravenous contrast. Coronal and sagittal reformats were reviewed. DOSE: Acquisition sequence: 1) Sequenced Acquisition 18.0 s, 18.0 cm; CTDIvol = 50.2 mGy (Head) DLP = 903.1 mGy-cm 2) Spiral Acquisition 5.7 s, 21.2 cm; CTDIvol = 24.5 mGy (Body) DLP = 518.9 mGy-cm Total DLP (Body) = 519 mGy-cm Total DLP (Head) = 903 mGy-cm Note: This radiation dose report was copied from accession #[id number] (CT HEAD WO CONTRAST) COMPARISON: CT chest 07 August 2025 FINDINGS: Reversal of the normal cervical lordosis is demonstrated. No traumatic malalignment. Rotation of C1 on C2 is likely due to head positioning within the scanner. No definite acute fractures are identified. There is moderate anterior height loss of the T1 vertebral body, unchanged from prior CT from July 2025. [id number] multilevel degenerative changes with intervertebral disc space narrowing, endplate sclerosis, and osteophyte formation. No high-grade central canal stenosis. Mild multilevel neural foraminal stenosis without high-grade narrowing.There is no prevertebral edema. Stranding in the left supraclavicular soft tissues relates to a left proximal humeral fracture as seen on the biochemistry teacher views. Severe emphysema is noted in the left lung apex. Thyroid gland demonstrates a rim calcified 5 mm nodule on the right which does not require dedicated imaging follow-up. Procedure Note Akanksha Ríos MD - 08/19/2025 EXAMINATION: CT CERVICAL SPINE WO CONTRAST INDICATION: s/p fall; TECHNIQUE: Contiguous axial images obtained through the cervical spine without intravenous contrast. Coronal and sagittal reformats were reviewed. DOSE: Acquisition sequence: 1) Sequenced Acquisition 18.0 s, 18.0 cm; CTDIvol = 50.2 mGy (Head) DLP = 903.1 mGy-cm 2) Spiral Acquisition 5.7 s, 21.2 cm; CTDIvol = 24.5 mGy (Body) DLP = 518.9 mGy-cm Total DLP (Body) = 519 mGy-cm Total DLP (Head) = 903 mGy-cm Note: This radiation dose report was copied from accession #[id number] (CT HEAD WO CONTRAST) COMPARISON: CT chest 07 August 2025 FINDINGS: Reversal of the normal cervical lordosis is demonstrated. No traumatic malalignment. Rotation of C1 on C2 is likely due to head positioning within the scanner. No definite acute fractures are identified. There is moderate anterior height loss of the T1 vertebral body, unchanged from prior CT from July 2025. [id number] multilevel degenerative changes with intervertebral disc space narrowing, endplate sclerosis, and osteophyte formation. No high-grade central canal stenosis. Mild multilevel neural foraminal stenosis without high-grade narrowing.There is no prevertebral edema. Stranding in the left supraclavicular soft tissues relates to a left proximal humeral fracture as seen on the biochemistry teacher views. Severe emphysema is noted in the left lung apex. Thyroid gland demonstrates a rim calcified 5 mm nodule on the right which does not require dedicated imaging follow-up. IMPRESSION: 1. No acute cervical spine fracture or traumatic malalignment. 2. Left proximal humeral fracture imaged on the biochemistry teacher view. 3. Chronic compression deformity of the T1 vertebral body. Akanksha Ríos MD, electronically signed on Aug 19 2025 06:57PM Shelley Roblero MD IMG CT ORDERABLES Final Result * CT Head Without Contrast (08/19/2025 6:49 PM EST) Anatomical Region Laterality Modality Head Computed Tomogra phy 08/19/2025 6:50 PM EST Impressions 08/19/2025 6:49 PM EST 1. No acute intracranial abnormality. Akanksha Ríos MD, electronically signed on Aug 19 2025 06:49PM Narrative 08/19/2025 6:49 PM EST EXAMINATION: CT HEAD WO CONTRAST [id number] CT BID-HEAD INDICATION: s/p fall; TECHNIQUE: Contiguous axial images of the brain were obtained without contrast. Coronal and sagittal reformations as well as bone algorithm reconstructions were provided and reviewed. DOSE: Acquisition sequence: 1) Sequenced Acquisition 18.0 s, 18.0 cm; CTDIvol = 50.2 mGy (Head) DLP = 903.1 mGy-cm 2) Spiral Acquisition 5.7 s, 21.2 cm; CTDIvol = 24.5 mGy (Body) DLP = 518.9 mGy-cm Total DLP (Body) = 519 mGy-cm Total DLP (Head) = 903 mGy-cm COMPARISON: None. FINDINGS: There is no evidence of fracture, acute large territorial infarction, hemorrhage, edema, or mass. There is prominence of the ventricles and sulci suggestive of involutional changes. Moderate periventricular and subcortical white matter hypodensities are nonspecific, but likely reflect the sequela of chronic microvascular infarction. The visualized portion of the paranasal sinuses, mastoid air cells, and middle ear cavities are clear. Patient is status post bilateral lens replacements. Procedure Note Akanksha Ríos MD - 08/19/2025 EXAMINATION: CT HEAD WO CONTRAST [id number] CT BID-HEAD INDICATION: s/p fall; TECHNIQUE: Contiguous axial images of the brain were obtained without contrast. Coronal and sagittal reformations as well as bone algorithm reconstructions were provided and reviewed. DOSE: Acquisition sequence: 1) Sequenced Acquisition 18.0 s, 18.0 cm; CTDIvol = 50.2 mGy (Head) DLP = 903.1 mGy-cm 2) Spiral Acquisition 5.7 s, 21.2 cm; CTDIvol = 24.5 mGy (Body) DLP = 518.9 mGy-cm Total DLP (Body) = 519 mGy-cm Total DLP (Head) = 903 mGy-cm COMPARISON: None. FINDINGS: There is no evidence of fracture, acute large territorial infarction, hemorrhage, edema, or mass. There is prominence of the ventricles and sulci suggestive of involutional changes. Moderate periventricular and subcortical white matter hypodensities are nonspecific, but likely reflect the sequela of chronic microvascular infarction. The visualized portion of the paranasal sinuses, mastoid air cells, and middle ear cavities are clear. Patient is status post bilateral lens replacements. IMPRESSION: 1. No acute intracranial abnormality. Akanksha Ríos MD, electronically signed on Aug 19 2025 06:49PM us Shelley Roblero MD IMG CT ORDERABLES Final Result * ECG 12 lead (08/19/2025 5:26 PM EST) Ventricular Heart Rate 96 BPM EKG BUR MUSE Atrial Heart Rate 96 BPM EKG BUR MUSE UT Interval 120 ms EKG BUR MUSE QRSD Interval 104 ms EKG BUR MUSE QT Interval 348 ms EKG BUR MUSE QTC Interval 439 ms EKG BUR MUSE P [place] 63 degrees EKG BUR MUSE R [place] 6 degrees EKG BUR MUSE T Wave [place] 5 degrees EKG BUR MUSE 08/19/2025 5:25 PM EST 08/21/2025 8:13 AM EST Narrative EKG BUR MUSE - 08/21/2025 8:13 AM EST Sinus rhythm with premature atrial depolarizations Minimal voltage criteria for LVH, may be normal variant ( Morris product ) Nonspecific T wave abnormality Inferior GA - indeterminate age Abnormal ECG When compared with ECG of 07-Aug-2025 13:31, premature ventricular depolarizations are no longer present premature atrial depolarizations are now present ST elevation now present in Anterior leads Procedure Note Demetri Barros MD - 08/21/2025 Sinus rhythm with premature atrial depolarizations Minimal voltage criteria for LVH, may be normal variant ( Morris product) Nonspecific T wave abnormality Inferior GA - indeterminate age Abnormal ECG When compared with ECG of 07-Aug-2025 13:31, premature ventricular depolarizations are no longer present premature atrial depolarizations are now present ST elevation now present in Anterior leads Shelley Roblero MD ECG ORDERABLES Final Result EKG BUR MUSE [address] [place] [id number] * Type and Screen (08/19/2025 5:13 PM EST) ABO and Rh O POS 08/19/2025 7:04 PM EST [facility] Antibody Screen NEG 7:04 PM EST [facility] TS Expiration Date 08/22/2025 23:59 08/19/2025 7:04 PM EST [facility] Blood PERIPHERAL BLOOD SPECIMEN / Unknown Venipuncture / Unknown 08/19/2025 5:13 PM EST 08/19/2025 5:18 PM EST Shelley Roblero MD BLOOD BANK TEST ORDERABLES Aysha l Result Performing Organization Address [facility] Co de Phone Number [facility] [address] [place] [address], * NT-proBNP (08/19/2025 5:12 PM EST) NT-ProBNP 125 0 - 624 pg/mL 08/19/2025 6:04 PM EST [facility] Comment: Reference values vary with age, sex, and renal function. At 35% prevalence, NT-proBNP values: <450 have 99% negative predictive value. >1000 have 78% positive predictive value For screening outpatients, the linotyper recommends maximizing sensitivity (and negative predictive value) by using two thresholds based on age. <125 pg/mL for patients younger than 75 <450 pg/mL for patients age 75 and older For acute dyspnea in ED patients, at 35% prevalence, study show that NTproBNP values <450 pg/mL have 99% negative predictive value for CHF >1000 pg/mL have 77% positve predictive value for CHF Grossly Hemolyzed Specimen, Blood PERIPHERAL BLOOD SPECIMEN / Unknown Venipuncture / Unknown 08/19/2025 5:12 PM EST 08/19/2025 5:17 PM EST Shelley Roblero MD LAB BLOOD ORDERABLES Final Resu lt Performing Organization Address City/[facility]/ZIP Co de Phone Number [facility] [address] [place] [address], [place] * Magnesium (08/19/2025 5:12 PM EST) Magnesium, Blood 2.1 1.6 - 2.6 mg/dL 08/19/2025 5:59 PM EST [facility] Comment:Grossly Hemolyzed Sp ecimen, Blood PERIPHERAL BLOOD SPECIMEN / Unknown Venipuncture / Unknown 08/19/2025 5:12 PM EST 08/19/2025 5:17 PM EST us Shelley Roblero MD LAB BLOOD ORDERABLES Final Resu lt Performing Organization Address City/[facility]/ZIP Co de Phone Number [facility] [address] [place] [address], [place] * (ABNORMAL) C-Reactive Protein (08/19/2025 5:12 PM EST) C-Reactive Protein (CRP) 293.0(H) 0.0 - 5.0 mg/L 08/19/2025 6:08 PM EST [facility] Comment:Grossly Hemolyzed Sp ecimen, Blood PERIPHERAL BLOOD SPECIMEN / Unknown Venipuncture / Unknown 08/19/2025 5:12 PM EST 08/19/2025 5:17 PM EST us Shelley Roblero MD LAB BLOOD ORDERABLES Final Resu lt Performing Organization Address City/[facility]/ZIP Co de Phone Number [facility] [address] [place] [address], [place] * Culture, Blood (08/19/2025 5:12 PM EST) Culture No growth after 5 days DARSHANA 08/24/2025 8:01 PM EST [facility] Blood PERIPHERAL BLOOD SPECIMEN / Unknown Venipuncture / Unknown 08/19/2025 5:12 PM EST 08/19/2025 5:18 PM EST us Shelley Roblero MD MICROBIOLOGY - GENERAL ORDERABL ES Final Result [facility] [address] [place] [address], [place] * Dark Green Top (Na-Hep) (08/19/2025 5:12 PM EST) Na_Hep Tube Received 08/19/2025 7:01 PM EST [facility] Blood PERIPHERAL BLOOD SPECIMEN / Unknown Venipuncture / Unknown 08/19/2025 5:12 PM EST 08/19/2025 5:18 PM EST us Shelley Roblero MD LAB BLOOD ORDERABLES Final Resu lt [facility] [address] [place] [address], [place] * Gold Top (08/19/2025 5:12 PM EST) Gold Top Tube Received 08/19/2025 7:01 PM EST [facility] Blood PERIPHERAL BLOOD SPECIMEN / Unknown Venipuncture / Unknown 08/19/2025 5:12 PM EST 08/19/2025 5:17 PM EST Shelley Roblero MD LAB BLOOD ORDERABLES Final Resu lt Performing Organization Address City/[facility]/ZIP Co de Phone Number [facility] [address] [place] [address], [place] * Blue Top (08/19/2025 5:12 PM EST) Blue Top Tube Received 08/19/2025 5:34 PM EST [facility] Blood PERIPHERAL BLOOD SPECIMEN / Unknown Venipuncture / Unknown 08/19/2025 5:12 PM EST 08/19/2025 5:18 PM EST Shelley Roblero MD LAB BLOOD ORDERABLES Final Resu lt Performing Organization Address City/[facility]/ZIP Co de Phone Number [facility] [address] [place] [address], [place] * (ABNORMAL) hs-Troponin T (reflex 1hr, 3hr) (08/19/2025 5:10 PM EST) [facility] Signature Troponin T HS 29(H) <=19 ng/L 08/19/2025 6:08 PM EST [facility] Comment: Moderately Hemolyzed Specimen, hs-cTnT<=19 ng/L in 99% of healthy individuals. hs-cTnT values of 30, 52, 100 and 1000 ng/L correspond to approximately DONNA Gen 4 of 0.01, 0.03, 0.1 and 1 ng/mL Blood PERIPHERAL BLOOD SPECIMEN / Unknown Venipuncture / Unknown 08/19/2025 5:10 PM EST 08/19/2025 5:17 PM EST us Shelley Roblero MD LAB BLOOD ORDERABLES Final Resu lt [facility] [address] [place] [address], [place] * (ABNORMAL) CBC and Differential (08/19/2025 5:10 PM EST) WBC 11.86(H) 4.00 - 10.00 K/uL 08/19/2025 5:40 PM EST [facility] RBC 3.33(L) 3.90 - 5.20 M/uL 08/19/2025 5:40 PM EST [facility] Hemoglobin 9.1(L) 11.2 - 15.7 g/dL 08/19/2025 5:40 PM EST [facility] Hematocrit 29.6(L) 34.0 - 45.0 % 08/19/2025 5:40 PM EST [facility] MCV 89 82 - 98 fL 08/19/2025 5:40 PM EST [facility] MCH 27.3 26.0 - 32.0 pg 08/19/2025 5:40 PM EST [facility] MCHC 30.7(L) 32.0 - 37.0 g/dL 08/19/2025 5:40 PM EST [facility] RDW 15.4 10.5 - 15.5 % 08/19/2025 5:40 PM EST [facility] RDW-SD 49.9(H) 35.1 - 46.3 fL 08/19/2025 5:40 PM EST [facility] Platelet Count 302 150 - 400 K/uL 08/19/2025 5:40 PM EST [facility] Nucleated RBC 0 <=0 #/100 WBC 08/19/2025 5:40 PM EST [facility] Neutrophil 80.1(H) 34.0 - 71.0 % 08/19/2025 5:40 PM EST [facility] Lymphocyte 11.7(L) 19.0 - 53.0 % 08/19/2025 5:40 PM EST [facility] Monocyte 6.6 5.0 - 13.0 % 08/19/2025 5:40 PM EST [facility] Eosinophil 1.0 1.0 - 7.0 % 08/19/2025 5:40 PM EST [facility] Basophil 0.2 0.0 - 1.0 % 08/19/2025 5:40 PM EST [facility] Immature Granulocyte (Scammon, Myelo, Promyelocyte) 0.4 0.0 - 0.6 % 08/19/2025 5:40 PM EST [facility] Absolute Neutrophil Count 9.50(H) 1.60 - 6.10 K/uL 08/19/2025 5:40 PM EST [facility] Absolute Lymphocyte Count 1.39 1.20 - 3.70 K/uL 08/19/2025 5:40 PM EST [facility] Absolute Monocyte Count 0.78 0.20 - 0.80 K/uL 08/19/2025 5:40 PM EST [facility] Absolute Eosinophil Count 0.12 0.04 - 0.54 K/uL 08/19/2025 5:40 PM EST [facility] Absolute Basophil Count <0.03 0.01 - 0.08 K/uL 08/19/2025 5:40 PM EST [facility] Absolute Immature Granulocyte (Scammon, Myelo, Promyelocyte) 0.05 0.00 - 0.09 K/uL 08/19/2025 5:40 PM EST [facility] Blood PERIPHERAL BLOOD SPECIMEN / Unknown Venipuncture / Unknown 08/19/2025 5:10 PM EST 08/19/2025 5:18 PM EST us Shelley Roblero MD LAB BLOOD ORDERABLES Final Resu lt [facility] [address] [place] [address], * (ABNORMAL) Blood Gas Full Panel, Venous (08/19/2025 5:10 PM EST) pH, Venous 7.46(H) 7.35 - 7.45 08/19/2025 5:18 PM EST [facility] pCO2, Venous 41 35 - 45 mmHg 08/19/2025 5:18 PM [facility] pO2, Venous 40(L) 80 - 105 mmHg 08/19/2025 5:18 PM [facility] HCO3, Venous 28 21 - 30 mmol/L 08/19/20 5:18 PM [facility] % O2Hb, Venous 72(L) 95 - 99 % 08/19/2025 5:18 PM [facility] Base Excess, Venous 4.5 No Established Reference Range mmol/L 08/19/2025 5:18 PM [facility] Sodium, Whole Blood 130(L) 135 - 147 mmol/L 08/19/2025 5:18 PM [facility] Potassium, Whole Blood 3.7 3.5 - 5.4 mmol/L 08/19/2025 5:18 PM [facility] Chloride, Whole Blood 100 96 - 108 mmol/L 08/19/2025 5:18 PM [facility] Lactic Acid, Venous 1.6 0.5 - 2.0 mmol/L 08/19/2025 5:18 PM [facility] Glucose, Whole Blood 139(H) 70 - 105 mg/dL 08/19/2025 5:18 PM [facility] Ionized Calcium 1.11(L) 1.12 - 1.32 mmol/L 08/19/2025 5:18 PM [facility] Hematocrit, Blood Gas 30.1(L) 37.0 - 47.0 % 08/19/2025 5:18 PM [facility] Carboxyhemogl obin, VBG 1.6(H) 0.5 - 1.5 % 08/19/2025 5:18 PM [facility] Methemoglobin , VBG 0.8(H) 0.2 - 0.6 % 08/19/2025 5:18 PM [facility] Hemoglobin, Blood Gas 9.7(L) 12.0 - 16.0 g/dL 08/19/2025 5:18 PM [facility] Blood Venipuncture / Unknown 08/19/2025 5:10 PM EST 08/19/2025 5:16 PM EST us Shelley Roblero MD LAB BLOOD ORDERABLES Final Resu lt [facility] [address] [place] [address], [place] * (ABNORMAL) Comprehensive Metabolic Panel (08/19/2025 5:10 PM EST) Sodium 130(L) 135 - 147 mmol/L 08/19/2025 5:52 PM EST [facility] Comment:Moderately Hemolyzed Specimen, Potassium 4.5 3.5 - 5.4 mmol/L 08/19/2025 5:52 PM EST [facility] Comment:Moderately Hemolyzed Specimen, Hemolysis falsely elevates this test Chloride 96 96 - 108 mmol/L 08/19/2025 5:52 PM EST [facility] Comment:Moderately Hemolyzed Specimen, Total CO2/Bicarbonate 25 22 - 32 mmol/L 08/19/2025 5:52 PM EST [facility] Comment:Moderately Hemolyzed Specimen, Anion Gap 9 4 - 16 mmol/L 08/19/2025 5:52 PM EST [facility] BUN 31(H) 6 - 20 mg/dL 08/19/2025 5:52 PM EST [facility] Comment:Moderately Hemolyzed Specimen, Creatinine, Blood 0.70 0.40 - 1.10 mg/dL 08/19/2025 5:52 PM EST [facility] Comment:Moderately Hemolyzed Specimen, Glucose, Blood 135(H) 70 - 100 mg/dL 08/19/2025 5:52 PM EST [facility] Comment:Moderately Hemolyzed Specimen, Calcium 8.4 8.4 - 10.3 mg/dL 08/19/2025 5:52 PM EST [facility] Comment:Moderately Hemolyzed Specimen, Total Protein 6.5 6.4 - 8.3 g/dL 08/19/2025 5:52 PM EST [facility] Comment:Moderately Hemolyzed Specimen, Albumin, Blood 2.7(L) 3.5 - 5.2 g/dL 08/19/2025 5:52 PM EST [facility] Comment:Moderately Hemolyzed Specimen, Globulin Result 3.8 2.0 - 4.0 g/dL 08/19/2025 5:52 PM EST [facility] AST (SGOT) 36 0 - 40 U/L 08/19/2025 5:52 PM EST [facility] Comment:Moderately Hemolyzed Specimen, Hemolysis falsely elevates this test ALT (SGPT) 18 0 - 40 U/L 08/19/2025 5:52 PM EST [facility] Comment:Moderately Hemolyzed Specimen, Alkaline Phosphatase 172(H) 35 - 105 U/L 08/19/2025 5:52 PM EST [facility] Comment:Moderately Hemolyzed Specimen, Total Bilirubin 0.6 0.0 - 1.5 mg/dL 08/19/2025 5:52 PM EST [facility] Comment:Moderately Hemolyzed Specimen, Estimated GFR(CKD-EPI) 90 mL/min/BS A 08/19/2025 5:52 PM EST [facility] Comment:Chronic Kidney Disea se Epidemiology Collaboration (CKD-EPI) 2020 Creatinine Equation Blood PERIPHERAL BLOOD SPECIMEN / Unknown Venipuncture / Unknown 08/19/2025 5:10 PM EST 08/19/2025 5:17 PM EST us Shelley Roblero MD LAB BLOOD ORDERABLES Final Resu lt [facility] [address] [place] [address], documented in this encounter Visit Diagnoses Diagnosis Closed comminuted fracture of left humerus, initial encounter- Primary Pain Generalized pain Acute pain of left shoulder Acute hypoxic respiratory failure (CMS-HCC) Chest pain, unspecified type Urinary retention Unspecified retention of urine Wrist drop, acquired, right Anxiety Anxiety state, unspecified Chronic systolic heart failure (CMS-HCC) Chronic systolic heart failure Acute on chronic hypoxic respiratory failure (CMS-HCC) Acute on chronic hypoxic respiratory failure (CMS-HCC) Chronic HFrEF (heart failure with reduced ejection fraction) (CMS-HCC) Acute deep vein thrombosis (DVT) of axillary vein of right upper extremity (CMS-HCC) Moderate malnutrition Chronic obstructive pulmonary disease (CMS-HCC) Chronic hypoxic respiratory failure (CMS-HCC) Myelopathy (CMS-HCC) Unspecified disease of spinal cord Other closed displaced fracture of proximal end of left humerus, initial encounter- Primary documented in this encounter Admitting Diagnoses Diagnosis Closed comminuted fracture of left humerus, initial encounter documented in this encounter Administered Medications Inactive Administered Medications - up to 3 most recent administrations Medication Order MAR Action Action Date Dose Rate Site 0.9% sodium chloride (NS) infusion Procedural continuous medication, Starting on Wed08/22/25 at 0934, Floor Orders 08/22/2025 9:34 AM EST 20 mL/hr 20 mL/hr acetaminophen (OFIRMEV) 10 mg/mL IV 1,000 mg 1,000 mg, Intravenous, Once, 1 dose, On Wed08/31/25 at 2330, at 400 mL/hr 08/31/2025 11:30 PM EST 1,000 mg 400 mL/hr acetaminophen (OFIRMEV) 10 mg/mL IV 1,000 mg 1,000 mg, Intravenous, Once, 1 dose, On Wed09/02/25 at 0100, at 400 mL/hr 09/02/2025 12:24 AM EST 1,000 mg 400 mL/hr acetaminophen (OFIRMEV) 10 mg/mL IV 1,000 mg 1,000 mg, Intravenous, Once, 1 dose, On Wed09/02/25 at 1130, at 400 mL/hr 09/02/2025 11:26 AM EST 1,000 mg 400 mL/hr acetaminophen (OFIRMEV) 10 mg/mL IV 1,000 mg 1,000 mg, Intravenous, Every 8 hours PRN, Starting on Wed09/02/25 at 2050, Until Wed09/06/25 at 1120, at 400 mL/hr, mild (1-3) pain, moderate (4-6) pain, fever greater than 101 F 09/06/2025 10:21 AM EST 1,000 mg 400 m L/hr 09/04/2025 6:51 AM EST 1,000 mg 400 mL/hr 09/03/2025 10:35 PM EST 1,000 mg 400 mL/hr acetaminophen (OFIRMEV) 10 mg/mL IV 1,000 mg 1,000 mg, Intravenous, Every 6 hours, First dose (after last modification) on So 09/06/25 at 1200, Until Discontinued, at 400 mL/hr New 09/08/2025 3:23 AM EST 1,000 mg 400 mL/hr New 09/07/2025 10:34 PM EST 1,000 mg 400 mL/hr New Bag 09/07/2025 4:12 PM EST 1,000 mg 400 mL/hr acetaminophen (TYLENOL) tablet 1,000 mg 1,000 mg, Oral, Every 6 hours scheduled, First dose on 09/08/25 at 1200, Until Discontinued Given 09/10/2025 12:18 PM EST 1,000 mg Given 09/10/2025 6:20 AM EST 1,000 mg Given 09/09/2025 11:12 PM EST 1,000 mg acetaminophen (TYLENOL) tablet 650 mg 650 mg, Oral, Every 6 hours PRN, Starting on 08/20/25 at 0848, Until 09/02/25 at 2050, mild (1-3) pain Given 08/23/2025 9:25 AM EST 650 mg Given 08/20/2025 5:23 PM EST 650 mg Given 08/20/2025 10:10 AM EST 650 mg aluminum-magnesium hydroxide-simethicone (Mylanta/Maalox) (200-200-20 mg)/5 mL suspension 30 mL 30 mL, Oral, Every 6 hours PRN, Starting on 08/25/25 at 1428, Until 09/10/25 at 203, heartburn, indigestion, cramping Given 08/25/2025 3:34 PM EST 30 mL apixaban (ELIQUIS) tablet 10 mg 10 mg, Oral, 2 times daily, First dose (after last modification) on 08/25/25 at 1800, For 3 doses, Indications: Treatment of VTE (acute)Indications:Treatment of VTE (acute) Given 08/26/2025 8:29 PM EST 10 mg Given 08/26/2025 11:01 AM EST 10 mg Given 08/25/2025 6:26 PM EST 10 mg apixaban (ELIQUIS) tablet 5 mg 5 mg, Oral, 2 times daily, First dose on 08/27/25 at 0900, For 90 days, Indications: Treatment of VTE (acute)Indications:Treatment of VTE (acute) Given 09/10/2025 9:40 AM EST 5 mg Given 09/09/2025 9:04 PM EST 5 mg Given 09/09/2025 10:04 AM EST 5 mg ascorbic acid (VITAMIN C) tablet 500 mg 500 mg, Oral, Daily, First dose on Wed08/20/25 at 0900, Until Discontinued Given 09/10/2025 9:39 AM EST 500 mg Given 09/09/2025 10:05 AM EST 500 mg Given 09/08/2025 9:39 AM EST 500 mg atorvaSTATin (LIPITOR) tablet 20 mg 20 mg, Oral, Nightly, First dose on Wed08/20/25 at 2100, Until Discontinued Given 09/09/2025 9:04 PM EST 20 mg Given 09/08/2025 8:20 PM EST 20 mg Given 09/07/2025 7:49 PM EST 20 mg benzocaine-menthoL (CHLORASEPTIC) 6-10 mg lozenge 1 lozenge 1 lozenge, Mouth/Throat, Every 4 hours PRN, Starting on Wed08/20/25 at 2133, Until Wed09/10/25 at 2030, sore throat bisacodyl (DULCOLAX) suppository 10 mg 10 mg, Rectal, Daily PRN, Starting on Wed08/20/25 at 1525, Until Wed09/10/25 at 2030, constipation Given 09/01/2025 3:48 PM EST 10 mg Given 08/28/2025 3:54 PM EST 10 mg Given 08/26/2025 3:57 PM EST 10 mg buprenorphine-naloxone (SUBOXONE) 4-1 mg sublingual film 1 Film 1 Film, Sublingual, 3 times daily, First dose on Wed08/27/25 at 2200, Until Discontinued Given 08/28/2025 3:[address] 1 Film Given 08/28/2025 8:21 AM EST 1 Film Given 08/27/2025 9:58 PM EST 1 Film buprenorphine-naloxone (SUBOXONE) 8-2 mg sublingual film 0.5 Film 0.5 Film, Sublingual, Daily, First dose (after last reorder) on Wed08/20/25 at 1000, Until Discontinued Given 08/23/2025 9:25 AM EST 0.5 Film buprenorphine-naloxone (SUBOXONE) 8-2 mg sublingual film 0.5 Film 0.5 Film, Sublingual, 2 times daily, First dose (after last modification) on Wed08/24/25 at 2100, Until Discontinued Given 08/27/2025 8:55 AM EST 0.5 Mimi m Given 08/26/2025 8:29 PM EST 0.5 Film Given 08/26/2025 11:03 AM EST 0.5 Film buprenorphine-naloxone (SUBOXONE) 8-2 mg sublingual film 1 Film 1 Film, Sublingual, 3 times daily, First dose on Wed08/28/25 at 2200, Until Discontinued Given 09/10/2025 3:[address] 1 Film Given 09/10/2025 9:38 AM EST 1 Film Given 09/09/2025 9:41 PM EST 1 Film calcium carbonate (TUMS) chewable tablet 500 mg 500 mg, Oral, Daily, First dose on Wed08/20/25 at 0900, Until Discontinued Given 08/23/2025 9:25 AM EST 500 mg Given 08/22/2025 8:01 AM EST 500 mg Given 08/21/2025 9:17 AM EST 500 mg calcium carbonate (TUMS) chewable tablet 500 mg 500 mg, Oral, 3 times daily PRN, Starting on Wed08/20/25 at 1413, Until Wed09/10/25 at 203, indigestion Given 09/10/2025 12:18 PM EST 500 mg Given 09/09/2025 3:49 AM EST 500 mg Given 09/05/2025 8:07 PM EST 500 mg cefepime (MAXIPIME) 2 g in sodium chloride 0.9% (NS) Mini-Bag Plus (disp comp) 2 g, Intravenous, Administer over 30 Minutes, Once, On [place] 08/19/25 at 1730, For 1 dose, Indication: Other, Skin and Soft Tissue Infection, Sepsis, Specify: ED Eval, STAT New Bag 08/19/2025 7:27 PM EST 2 g 200 mL/hr cefepime (MAXIPIME) 2 g in sodium chloride 0.9% (NS) Mini-Bag Plus (disp comp) 2 g, Intravenous, Administer over 30 Minutes, Once, On So 08/23/25 at 1300, For 1 dose, First dose administered over 30 minutes; Second dose scheduled 6 hours later. All subsequent doses administer over 3 hours (180 min), Indication: Pneumonia (HCAP/HAP non-ICU), Has this order been approved by ID/AST? Discussed with and approved by Antimicrobial Stewardship provider (pager [phone])., Select the name of the APPROVING AST PROVIDER: Geovanna Walsh Routine New Bag 08/23/2025 1:30 PM EST 2 g 200 mL/hr cefepime (MAXIPIME) 2 g in sodium chloride 0.9% (NS) Mini-Bag Plus (disp comp) 2 g, Intravenous, Administer over 180 Minutes, Every 8 hours, First dose on So 08/23/25 at 1900, For 7 days, Administer over 3 hours (180 min), Indication: Pneumonia (HCAP/HAP non-ICU), Has this order been approved by ID/AST? Discussed with and approved by Antimicrobial Stewardship provider (pager [phone])., Select the name of the APPROVING AST PROVIDER: Geovanna Walsh Routine, On hold since [place] 08/26/2025 at 0331 until manually unheld New Bag 08/25/2025 8:57 PM EST 2 g 33.3 mL/h r New Bag 08/25/2025 1:49 PM EST 2 g 33.3 mL/hr New Bag 08/25/2025 2:35 AM EST 2 g 33.3 mL/hr cholecalciferol (VITAMIN D3) tablet 1,000 Units 1,000 Units, Oral, Daily, First dose on Wed08/20/25 at 0900, Until Discontinued Given 09/10/2025 9:[address] 1,000 Units Given 09/09/2025 10:05 AM EST 1,000 Units Given 09/08/2025 9:39 AM EST 1,000 Units cycloSPORINE (RESTASIS) 0.05 % ophthalmic emulsion 1 drop 1 drop, Both Eyes, 2 times daily, First dose on Wed08/20/25 at 0900, Until Discontinued Given 09/10/2025 9:40 AM EST 1 drop Given 09/09/2025 9:06 PM EST 1 drop Given 09/09/2025 10:05 AM EST 1 drop fentaNYL (PF) 50 mcg/mL injection Intravenous, Procedural medication, Starting on Wed08/22/25 at 0933, Until Wed08/22/25 at 0947, Floor Orders Given 08/22/2025 9:47 AM EST 25 mcg Given 08/22/2025 9:41 AM EST 25 mcg Given 08/22/2025 9:36 AM EST 25 mcg ferrous sulfate tablet 325 mg 325 mg, Oral, Daily with breakfast, First dose on Wed08/21/25 at 0800, Until Discontinued Given 09/10/2025 9:39 AM EST 325 mg Given 09/09/2025 9:24 AM EST 325 mg Given 09/08/2025 8:58 AM EST 325 mg furosemide (LASIX) injection 20 mg 20 mg, Intravenous, 3 times weekly (Once per day on Wednesday), First dose on Wed09/03/25 at 0900 Given 09/03/2025 8:34 AM EST 20 mg furosemide (LASIX) tablet 20 mg 20 mg, Oral, 3 times weekly (Once per day on Wednesday), First dose on Wed08/20/25 at 0900, Until Discontinued Given 08/22/2025 8:01 AM EST 20 mg furosemide (LASIX) tablet 20 mg 20 mg, Oral, 3 times weekly (Once per day on Wednesday), First dose on Wed09/05/25 at 0900, Until Discontinued Given 09/10/2025 9:39 AM EST 20 mg Given 09/07/2025 9:22 AM EST 20 mg Given 09/05/2025 8:12 AM EST 20 mg guaiFENesin (ROBITUSSIN) 100 mg/5 mL syrup 200 mg 200 mg, Oral, Every 4 hours PRN, Starting on Wed08/24/25 at 0031, Until Wed09/10/25 at 2031, cough Given 09/09/2025 6:44 PM EST 200 mg Given 09/04/2025 10:33 PM EST 200 mg Given 08/31/2025 8:59 PM EST 200 mg heparin (porcine) (PF) injection 10 Units/mL (flush) Intravenous, Procedural medication, Starting on Wed08/27/25 at 1334, Floor Orders Given 08/27/2025 1:34 PM EST 30 Units heparin (porcine) (PF) injection 10 Units/mL (flush) 10-40 Units (1-4 mL), Intravenous, Daily, First dose on Wed08/29/25 at 1230, 1mL per lumen Given 09/03/2025 9:46 AM EST 10 Units Given 09/02/2025 9:43 AM EST 10 Units Given 09/01/2025 8:26 AM EST 10 Units heparin (porcine) (PF) injection 10 Units/mL (flush) 10-40 Units (1-4 mL), Intravenous, As needed, line care, after intermittent infusions, transfusions or blood draw, Starting on Wed08/29/25 at 1147, 1mL per lumen Given 09/01/2025 5:35 AM EST 10 Units heparin (porcine) 25,000 unit/250 mL (100 unit/mL) in D5W infusion 0-42 Units/kg/hr 56.7 kg Dosing weight (0-23.814 mL/hr, rounded to 0-23.8 mL/hr), Intravenous, Titrated, Starting on Wed08/20/25 at 1130, For 5 days 6 hours, Venous Thromboembolism/Mechanical Valve, Maximum Bolus Dose (units): 60676, Maximum initial infusion dose (units/hr): 2200, Initial or Resuming Protocol Infusion Dose (units/kg/hr): 18, Confirm Initial Protocol Infusion Dose: Yes, use Protocol as Ordered, Heparin Assay LESS than 0.2 units/mL : Adjustment (units/kg/hr): 4, Heparin Assay LESS than 0.2 units/mL : Bolus (units/kg): 60, Heparin Assay LESS than 0.2 units/mL : Additional Instructions: Repeat Heparin Assay in 6 hours., Heparin Assay LESS than 0.2 units/mL : Additional Instructions 2: Document bolus administration on bolus order., Heparin Assay 0.2 - 0.29 units/mL : Adjustment (units/kg/hr): 2, Heparin Assay 0.2 - 0.29 units/mL : Bolus (units/kg): 30, Heparin Assay 0.2 - 0.29 units/mL : Additional Instructions: Repeat Heparin Assay in 6 hours., Heparin Assay 0.2 - 0.29 units/mL : Additional Instructions 2: Document bolus administration on bolus order., Heparin Assay 0.3 - 0.7 units/mL (GOAL) : Adjustment (units/kg/hr): 0, Heparin Assay 0.3 - 0.7 units/mL (GOAL) : Bolus (units/kg): 0, Heparin Assay 0.3 - 0.7 units/mL (GOAL) : Additional Instructions: NO CHANGE in current infusion dose. Repeat Heparin Assay in 6 hours., Heparin Assay 0.3 - 0.7 units/mL (GOAL) : Additional Instructions 2: Once 2 consecutive heparin assays are in goal, switch to DAILY heparin assay every AM., Heparin Assay 0.71 - 0.8 units/mL : Adjustment (units/kg/hr): -1, Heparin Assay 0.71 - 0.8 units/mL : Bolus (units/kg): 0, Heparin Assay 0.71 - 0.8 units/mL : Additional Instructions: Repeat Heparin Assay in 6 hours., Heparin Assay 0.81 - 0.9 units/mL : Adjustment (units/kg/hr): -2, Heparin Assay 0.81 - 0.9 units/mL : Bolus (units/kg): 0, Heparin Assay 0.81 - 0.9 units/mL : Additional Instructions: Repeat Heparin Assay in 6 hours., Heparin Assay 0.91 - 1.1 units/mL : Adjustment (units/kg/hr): -3, Heparin Assay 0.91 - 1.1 units/mL : Bolus (units/kg): 0, Heparin Assay 0.91 - 1.1 units/mL : Additional Instructions: HOLD (Pause) infusion for 1 hour, THEN resume at lower maintenance dose., Heparin Assay 0.91 - 1.1 units/mL : Additional Instructions 2: Repeat heparin assay 6 hours AFTER resuming drip., Heparin Assay GREATER than 1.1 units/mL : Adjustment (units/kg/hr): -4, Heparin Assay GREATER than 1.1 units/mL : Bolus (units/kg): 0, Heparin Assay GREATER than 1.1 units/mL : Additional Instructions: HOLD (Pause) infusion for 2 hours, THEN resume at lower maintenance dose., Heparin Assay GREATER than 1.1 units/mL : Additional Instructions 2: Repeat heparin assay 6 hours AFTER resuming drip. Rate/Dose Verify 08/24/2025 8:30 PM EST 18 Units/kg/hr 10.2 mL/hr New Bag 08/24/2025 5:16 PM EST 18 Units/kg/hr 10.2 mL/h r New Bag 08/24/2025 12:45 PM EST 18 Units/kg/hr 10.2 mL/ hr HEPARIN 25,000 UNIT/250 ML (100 UNIT/ML) BOLUS FROM BAG 30-60 Units/kg (Dosing Weight) = 1,700-3,400 Units 1,700-3,400 Units (rounded from 1,701-3,402 Units = 30-60 Units/kg 56.7 kg Dosing weight), Intravenous, Every 6 hours PRN, Starting on Wed08/20/25 at 1714, Until 08/25/25 at 2000, per current anti-Xa/heparin assay Bolus from Bag 08/21/2025 1:57 AM EST 1,700 Units HEPARIN 25,000 UNIT/250 ML (100 UNIT/ML) BOLUS FROM BAG 80 Units/kg (Dosing Weight) = 4,500 Units 4,500 Units (rounded from 4,536 Units = 80 Units/kg 56.7 kg Dosing weight), Intravenous, Once, 1 dose, On Wed08/20/25 at 1130 Bolus from Bag 08/20/2025 11:41 AM EST 4,500 Units HYDROmorphone (DILAUDID) injection 0.5 mg 0.5 mg, Intravenous, Every 3 hours PRN, Starting on Wed08/19/25 at 1712, Until Wed08/20/25 at 1042, severe (7-10) pain Given 08/20/2025 10:05 AM EST 0.5 mg Given 08/20/2025 7:20 AM EST 0.5 mg Given 08/20/2025 4:15 AM EST 0.5 mg HYDROmorphone (DILAUDID) injection 0.5 mg 0.5 mg, Intravenous, Once, 1 dose, On Wed08/20/25 at 0030 Given 08/20/2025 12:05 AM EST 0.5 mg HYDROmorphone (DILAUDID) injection 1 mg 1 mg, Intravenous, Once, 1 dose, On Wed08/20/25 at 0130 Given 08/20/2025 1:24 AM EST 1 mg HYDROmorphone (DILAUDID) tablet 4 mg 4 mg, Oral, Every 4 hours PRN, Starting on Wed08/21/25 at 1453, Until Wed08/22/25 at 1628, severe (7-10) pain Given 08/22/2025 12:45 PM EST 4 mg Given 08/22/2025 6:46 AM EST 4 mg Given 08/22/2025 12:18 AM EST 4 mg iohexoL (OMNIPAQUE) 350 mg iodine/mL injection 80 mL 80 mL, Intravenous, Once in imaging, Starting on [place] 08/19/25 at 1850, For 1 dose, Hydrate well prior to and following administration. Given 08/19/2025 6:50 PM EST 80 mL ipratropium-albuteroL (DUONEB) 0.5-2.5 mg/3 mL nebulizer solution 3 mL 3 mL, Nebulization, Once, 1 dose, On [place] 08/19/25 at 1730 Given 08/19/2025 5:40 PM EST 3 mL ipratropium-albuteroL (DUONEB) 0.5-2.5 mg/3 mL nebulizer solution 3 mL 3 mL, Nebulization, Every 6 hours PRN, Starting on Wed08/20/25 at 0848, Until Wed09/10/25 at 203, wheezing Given 09/09/2025 10:34 AM EST 3 mL Given 09/04/2025 3:40 PM EST 3 mL Given 08/29/2025 9:09 PM EST 3 mL iron dextran (INFED) 1,000 mg in sodium chloride 0.9% (NS) 295 mL IVPB 1,000 mg, Intravenous, Once, On 09/04/25 at 0930, Administer over 120 Minutes, Observe patient for 30 minutes after every dose New Bag 09/04/2025 11:46 AM EST 1,000 mg lactated ringers (LR) BOLUS 1,000 mL 1,000 mL, Intravenous, Once, On [place] 08/19/25 at 1730, For 1 dose, STAT, Administer over 1 Hours New Bag 08/19/2025 5:13 PM EST 1,000 mL 1000 mL/hr lactated ringers (LR) BOLUS 1,000 mL 1,000 mL, Intravenous, Once, On 08/25/25 at 1600, For 1 dose, Routine, Administer over 3 Hours New Bag 08/25/2025 6:26 PM EST 1,000 mL 333.3 mL/hr lactated ringers (LR) BOLUS 500 mL 500 mL, Intravenous, Once, On So 08/23/25 at 1630, For 1 dose, Routine, Administer over 1 Hours New Bag 08/23/2025 3:36 PM EST 500 mL 500 mL/hr lactated ringers (LR) BOLUS 500 mL 500 mL, Intravenous, Once, On [place] 09/09/25 at 1300, For 1 dose, Routine, Administer over 1 Hours New Bag 09/09/2025 12:33 PM EST 500 mL 500 mL/hr levoFLOXacin (LEVAQUIN) tablet 750 mg 750 mg Every 24 hours, Oral, First dose on 08/26/25 at 0430, For 1 day Given 08/26/2025 4:01 AM EST 750 mg levoFLOXacin (LEVAQUIN) tablet 750 mg 750 mg Every 24 hours, Oral, First dose (after last reorder) on 08/27/25 at 0900, For 3 doses Given 08/29/2025 9:10 AM EST 750 mg Given 08/28/2025 8:23 AM EST 750 mg Given 08/27/2025 8:54 AM EST 750 mg levothyroxine (SYNTHROID, LEVOXYL) tablet 50 mcg 50 mcg, Oral, Daily (thyroid, PPIs, heparin flush), First dose on 08/20/25 at 0600, Until Discontinued Given 09/10/2025 6:20 AM EST 50 mcg Given 09/09/2025 6:33 AM EST 50 mcg Given 09/08/2025 5:30 AM EST 50 mcg lidocaine 10 mg/mL (1 %) injection Intradermal, Procedural medication, Starting on 08/22/25 at 0938, Until 08/22/25 at 0938, Intraprocedure Given 08/22/2025 9:38 AM EST 10 mL lidocaine 10 mg/mL (1 %) injection Intradermal, Procedural medication, Starting on 08/27/25 at 1321, Until Wed08/27/25 at 1321, Intraprocedure Given 08/27/2025 1:21 PM EST 10 mL lidocaine 4 % patch 2 patch 2 patch, Topical, Administer over 12 Hours, Every 24 hours, First dose on So 09/06/25 at 1200, Patch should be applied for 12 hours on and 12 hours off. Location(s) to be applied to: bilateral shoulders Patch Applied 09/06/2025 12:36 PM EST 2 patches Right Arm lidocaine HCL (URO-JET) 2 % jelly 5 mL 5 mL, Urethral, As needed, 1 dose, Starting on 08/25/25 at 2352, Until 09/08/25 at 0530, For patient comfort Given 09/08/2025 5:30 AM EST 5 mL lidocaine HCL (URO-JET) 2 % jelly 5 mL 5 mL, Urethral, As needed, 1 dose, Starting on Wed08/29/25 at 2355, Until Wed09/10/25 at 2030, For patient comfort linezolid (ZYVOX) tablet 600 mg 600 mg 2 times daily, Oral, First dose on Wed08/26/25 at 0900, For 3 doses Given 08/27/2025 8:54 AM EST 600 mg Given 08/26/2025 8:29 PM EST 600 mg Given 08/26/2025 11:02 AM EST 600 mg rhasdu-pertcskz-xskfehf (pork) (CREON) 24,000-76,000 -120,[address] capsule 48,000 units of lipase 48,000 units of lipase, Oral, 3 times daily with meals, First dose on Wed08/20/25 at 1200, Until Discontinued Given 09/10/2025 9:38 AM EST 48,000 units of lipase Given 09/09/2025 7:35 PM EST 48,000 units of lipase Given 09/09/2025 2:35 PM EST 48,000 units of lipase LORazepam (ATIVAN) tablet 0.5 mg 0.5 mg, Oral, 2 times daily, First dose on Wed08/20/25 at 0900, Until Discontinued Given 08/21/2025 9:17 AM EST 0.5 mg Given 08/20/2025 8:22 PM EST 0.5 mg Given 08/20/2025 9:57 AM EST 0.5 mg LORazepam (ATIVAN) tablet 0.5 mg 0.5 mg, Oral, 2 times daily PRN, Starting on Wed08/21/25 at 2000, Until Wed09/10/25 at 2030, anxiety Given 09/10/2025 1:29 AM EST 0.5 mg Given 09/09/2025 6:43 PM EST 0.5 mg Given 09/09/2025 10:36 AM EST 0.5 mg LORazepam (ATIVAN) tablet 1 mg 1 mg, Oral, Once as needed, 1 dose, Starting on Wed09/03/25 at 1104, Until Wed09/10/25 at 2030, anxiety, Pre-MRI LORazepam (ATIVAN) tablet 1 mg 1 mg, Oral, Daily PRN, Starting on Wed09/05/25 at 1700, Until Wed09/10/25 at 2031, anxiety, Pre MRI magnesium sulfate 2 g/50 mL IVPB 2 g, Intravenous, Administer over 60 Minutes, Once, On Wed08/21/25 at 0900, For 1 dose New Bag 08/21/2025 9:18 AM EST 2 g 50 mL/hr methocarbamoL (ROBAXIN) tablet 500 mg 500 mg, Oral, 4 times daily, First dose on Wed08/27/25 at 2200, Until Discontinued Given 09/10/2025 2:37 PM EST 500 mg Given 09/10/2025 9:39 AM EST 500 mg Given 09/09/2025 9:41 PM EST 500 mg metoprolol ER (TOPROL-XL) 24 hr tablet 12.5 mg 12.5 mg, Oral, 2 times daily, First dose on Wed09/04/25 at 0900, Do not crush., Hold Parameters: HR, SBP, Hold for HR less than: 60 bpm, Hold for SBP less than: 100 mmHg Given 09/10/2025 9:39 AM EST 12. 5 mg Given 09/09/2025 9:05 PM EST 12.5 mg Given 09/09/2025 10:04 AM EST 12.5 mg metoprolol tartrate (LOPRESSOR) tablet 12.5 mg 12.5 mg, Oral, 2 times daily, First dose on Wed08/20/25 at 0900, Hold Parameters: HR, SBP, Hold for HR less than: 60 bpm, Hold for SBP less than: 100 mmHg Given 09/03/2025 8:46 PM EST 12.5 mg Given 09/03/2025 8:33 AM EST 12.5 mg Given 09/02/2025 8:48 PM EST 12.5 mg mometasone-formoterol (Dulera) 100-5 mcg/actuation inhaler 2 puff 2 puff, Inhalation, 2 times daily, First dose on Wed08/20/25 at 0900, Until Discontinued Given 09/10/2025 9:41 AM EST 2 puffs Given 09/09/2025 9:06 PM EST 2 puffs Given 09/09/2025 10:20 AM EST 2 puffs morphine (MSIR) tablet 60 mg 60 mg, Oral, Every 4 hours PRN, Starting on Wed08/28/25 at 0856, Until Wed08/30/25 at 0957, moderate (4-6) pain, severe (7-10) pain Given 08/30/2025 8:1 6 AM EST 60 mg Given 08/30/2025 12:24 AM EST 60 mg Given 08/29/2025 6:36 PM EST 60 mg morphine (PF) in 0.9 % sodium chloride 1 mg/mL SATURATION DIVER Intravenous, Continuous, Starting on Wed08/22/25 at 1730 Rate/Dose Verify 08/28/2025 5:36 AM EST Rate/Dose Verify 08/28/2025 3:51 AM EST New Bag 08/28/2025 1:07 AM EST morphine injection 10 mg 10 mg, Intravenous, Once, 1 dose, On Wed08/30/25 at 1530 Given 08/30/2025 3:00 PM EST 10 mg morphine injection 2 mg 2 mg, Intravenous, Every 4 hours PRN, Starting on Wed08/20/25 at 1042, Until Wed08/20/25 at 1747, severe (7-10) pain Given 08/20/2025 3:38 PM EST 2 mg Given 08/20/2025 10:56 AM EST 2 mg morphine injection 2 mg 2 mg, Intravenous, Once, 1 dose, On Wed08/20/25 at 1430 Given 08/20/2025 2:22 PM EST 2 mg morphine injection 2 mg 2 mg, Intravenous, Once as needed, 1 dose, Starting on Wed08/21/25 at 2233, Until Wed08/21/25 at 2318, Rescue Pain - same or higher score 60 min after last PRN opioid dose Given 08/21/2025 11:18 PM EST 2 mg morphine injection 2.5 mg 2.5 mg, Intravenous, Once, 1 dose, On Wed08/22/25 at 1830 Given 08/22/2025 6:02 PM EST 2.5 mg morphine injection 4 mg 4 mg, Intravenous, Once, 1 dose, On Wed08/20/25 at 0430 Given 08/20/2025 4:42 AM EST 4 mg morphine injection 4 mg 4 mg, Intravenous, Every 3 hours PRN, Starting on Wed08/20/25 at 1837, Until Wed08/21/25 at 0957, severe (7-10) pain Given 08/21/2025 9:12 AM EST 4 mg Given 08/21/2025 4:05 AM EST 4 mg Given 08/20/2025 11:38 PM EST 4 mg morphine injection 4 mg 4 mg, Intravenous, Every 3 hours PRN, Starting on Wed08/21/25 at 1006, Until Wed08/22/25 at 1628, Rescue Pain - same or higher score 60 min after last PRN opioid dose Given 08/22/2025 2:12 PM EST 4 mg Given 08/22/2025 8:00 AM EST 4 mg Given 08/22/2025 3:12 AM EST 4 mg Multivitamin with Minerals tablet 1 tablet 1 tablet, Oral, Daily, First dose on Wed08/20/25 at 1600, Until Discontinued Given 09/10/2025 9:40 AM EST 1 tablet Given 09/09/2025 10:04 AM EST 1 tablet Given 09/08/2025 9:40 AM EST 1 tablet omeprazole (PriLOSEC) DR capsule 20 mg 20 mg, Oral, Daily (thyroid, PPIs, heparin flush), First dose on Wed08/20/25 at 0900, Until Discontinued Given 09/10/2025 6:20 AM EST 20 mg Given 09/09/2025 6:33 AM EST 20 mg Given 09/08/2025 5:30 AM EST 20 mg ondansetron (ZOFRAN) injection 4 mg 4 mg, Intravenous, Every 8 hours PRN, nausea, vomiting, if NOT tolerating PO, Starting on Wed08/24/25 at 0927 Given 08/25/2025 10:01 AM EST 4 mg Given 08/24/2025 10:06 AM EST 4 mg ondansetron (ZOFRAN-ODT) disintegrating tablet 4 mg 4 mg, Oral, Every 8 hours PRN, Starting on Wed08/24/25 at 0927, Until Wed09/10/25 at 203, nausea, vomiting, if tolerating PO oxyCODONE (ROXICODONE) tablet 10 mg 10 mg, Oral, Every 4 hours PRN, Starting on So 08/30/25 at 0957, Until Wed09/04/25 at 1012, severe (7-10) pain Given 09/04/2025 8:40 AM EST 10 mg Given 09/04/2025 3:49 AM EST 10 mg Given 09/04/2025 12:11 AM EST 10 mg oxyCODONE (ROXICODONE) tablet 15 mg 15 mg, Oral, Every 4 hours PRN, Starting on Wed08/21/25 at 0954, Until Wed08/21/25 at 1453, severe (7-10) pain Given 08/21/2025 11:31 AM EST 15 mg oxyCODONE (ROXICODONE) tablet 15 mg 15 mg, Oral, Every 4 hours PRN, Starting on Wed09/04/25 at 1012, Until Wed09/10/25 at 2031, severe (7-10) pain Given 09/10/2025 4:06 PM EST 15 mg Given 09/10/2025 12:18 PM EST 15 mg Given 09/10/2025 6:20 AM EST 15 mg oxyCODONE (ROXICODONE) tablet 5 mg 5 mg, Oral, Every 4 hours PRN, Starting on Wed08/20/25 at 0848, Until Wed08/21/25 at 0955, moderate (4-6) pain Given 08/21/2025 5:41 AM EST 5 mg Given 08/20/2025 10:35 PM EST 5 mg Given 08/20/2025 5:23 PM EST 5 mg PARoxetine (PAXIL) tablet 20 mg 20 mg, Oral, Every morning, First dose on Wed08/20/25 at 0900, Until Discontinued Given 09/10/2025 9:40 AM EST 20 mg Given 09/09/2025 10:05 AM EST 20 mg Given 09/08/2025 9:39 AM EST 20 mg peripheral line: sodium chloride (NS) 0.9% flush 3 mL, Intravenous, Every 12 hours scheduled, First dose on Wed08/20/25 at 0900, Until Discontinued Given 09/09/2025 9:23 PM EST 3 mL Given 09/09/2025 11:05 AM EST 3 mL Given 09/07/2025 8:05 PM EST 3 mL peripheral line: sodium chloride (NS) 0.9% flush 3 mL, Intravenous, Every 12 hours scheduled, First dose on Wed09/05/25 at 2100, Until Discontinued Given 09/10/2025 9:41 AM EST 3 mL Given 09/09/2025 11:04 AM EST 3 mL Given 09/08/2025 8:34 PM EST 3 mL peripheral line: sodium chloride 0.9 % (NS) flush 3 mL, Intravenous, Every 1 min PRN, Starting on Wed08/20/25 at 0834, Until Wed09/10/25 at 2030, line care peripheral line: sodium chloride 0.9 % (NS) flush 3 mL, Intravenous, Every 1 min PRN, Starting on Wed09/05/25 at 1320, Until Wed09/10/25 at 2030, line care polyethylene glycol (MIRALAX) packet 17 g 17 g, Oral, Daily, First dose on Wed08/20/25 at 0900, Until Discontinued Given 08/21/2025 9:17 AM EST 17 g Given 08/20/2025 9:57 AM EST 17 g polyethylene glycol (MIRALAX) packet 17 g 17 g, Oral, 2 times daily, First dose (after last modification) on Wed08/22/25 at 0900, Until Discontinued Given 09/09/2025 9:05 PM EST 17 g Given 09/09/2025 10:05 AM EST 17 g Given 09/08/2025 8:21 PM EST 17 g potassium chloride (KLOR-CON) packet 20 mEq 20 mEq, Oral, Once, 1 dose, On Wed08/21/25 at 0900 Given 08/21/2025 9:16 AM EST 20 mEq pregabalin (LYRICA) capsule 100 mg 100 mg, Oral, 2 times daily, First dose (after last modification) on Wed09/09/25 at 2100, Until Discontinued Given 09/10/2025 9:39 AM EST 100 mg Given 09/09/2025 9:04 PM EST 100 mg pregabalin (LYRICA) capsule 75 mg 75 mg, Oral, 2 times daily, First dose on Wed08/26/25 at 1100, Until Discontinued Given 09/09/2025 10:04 AM EST 75 mg Given 09/08/2025 8:21 PM EST 75 mg Given 09/08/2025 9:40 AM EST 75 mg sacubitriL-valsartan (ENTRESTO) 24 mg-26 mg per tablet 0.5 tablet 0.5 tablet, Oral, 2 times daily, First dose on Wed08/21/25 at 0930, Hold Parameters: SBP, Hold for SBP less than: 100 mmHg Given 09/10/2025 9:40 AM EST 0.5 tablets Given 09/09/2025 9:05 PM EST 0.5 tablets Given 09/09/2025 10:05 AM EST 0.5 tablets sennosides (SENOKOT) tablet 17.2 mg 17.2 mg, Oral, At bedtime, First dose on Wed08/20/25 at 2100, Until Discontinued Given 08/21/2025 8:36 PM EST 17.2 mg Given 08/20/2025 8:22 PM EST 17.2 mg sennosides (SENOKOT) tablet 17.2 mg 17.2 mg, Oral, 2 times daily, First dose (after last modification) on Wed08/22/25 at 2100, Until Discontinued Given 09/09/2025 9:06 PM EST 17.2 mg Given 09/09/2025 10:05 AM EST 17.2 mg Given 09/08/2025 8:20 PM EST 17.2 mg sodium phosphate 30 mmol in sodium chloride 0.9% (NS) IVPB 30 mmol, Intravenous, Administer over 6 Hours, Once, On 08/25/25 at 1030, For 1 dose New Bag 08/25/2025 12:04 PM EST 30 mmol 8 3.3 mL/hr Temporary Central Access: 0.9% sodium chloride (NS) flush 10-40 mL, Intravenous, As needed, Starting on Wed08/29/25 at 1147, Until Wed09/10/25 at 2031, line care, after intermittent infusions, transfusions or blood draw Temporary Central Access: sodium chloride (NS) 0.9% flush 10-40 mL, Intravenous, Daily, First dose on Wed08/29/25 at 1230, Until Discontinued Given 09/04/2025 10:54 AM EST 10 mL Given 09/03/2025 8:47 AM EST 10 mL Given 09/02/2025 9:50 AM EST 10 mL tiotropium bromide (SPIRIVA RESPIMAT) 2.5 mcg/actuation inhalation 2 puff 2 puff, Inhalation, Daily (RT), First dose on Wed08/20/25 at 0900, Until Discontinued Given 09/10/2025 9:41 AM ES T 2 puffs Given 09/09/2025 10:21 AM EST 2 puffs Given 09/08/2025 9:40 AM EST 2 puffs vancomycin (VANCOCIN) 1 gram/200 mL in dextrose 5% (D5W) IVPB premix 15 mg/kg (Adjusted) = 1,000 mg 200 mL 1,000 mg (rounded from 879 mg = 15 mg/kg 58.6 kg Adjusted weight), Intravenous, Administer over 60 Minutes, Every 8 hours, First dose (after last modification) on Wed08/24/25 at 1500, For 5 days, Indication: Community Acquired/Healthcare Associated Pneumonia, On hold since [place] 08/26/2025 at 0331 until manually unheld New Bag 08/25/2025 5:08 PM EST 1,000 mg 200 mL/hr New 08/25/2025 6:20 AM EST 1,000 mg 200 mL/hr New 08/24/2025 11:14 PM EST 1,000 mg 200 mL/hr vancomycin (VANCOCIN) 1.5 gram/500 mL in 0.9 % sodium chloride (NS) IVPB premix 25 mg/kg = 1,500 mg 500 mL 1,500 mg (rounded from 1,417.5 mg = 25 mg/kg 56.7 kg), Intravenous, Administer over 90 Minutes, Once, On Wed08/19/25 at 1730, For 1 dose, Indication: Complicated Skin and Soft Tissue Infection New 08/19/2025 9:11 PM EST 1,500 mg 333.3 mL/hr vancomycin in dextrose 5 % 750 mg/150 mL IVPB (premix) 750 mg 150 mL 750 mg, Intravenous, Administer over 60 Minutes, Every 8 hours, First dose on So 08/23/25 at 1400, For 5 doses, Indication: Community Acquired/Healthcare Associated Pneumonia Subsequent 08/24/2025 6:26 AM EST 750 mg New 08/23/2025 9:37 PM EST 750 mg New 08/23/2025 4:49 PM EST 750 mg documented in this encounter Active and Recently Administered Medications Times are shown in EST. Scheduled Medication Order 09/08/2025 09/09/2025 09/10/2025 acetaminophen (OFIRMEV) 10 mg/mL IV 1,000 mg (CANCELED) 1,000 mg, Intravenous, Every 6 hours, First dose (after last modification) on So 09/06/25 at 1200, Until Discontinued, at 400 mL/hr 0323 (New Bag - Provider: hCerri Shipman RN) acetaminophen (TYLENOL) tablet 1,000 mg 1,000 mg, Oral, Every 6 hours scheduled, First dose on 09/08/25 at 1200, Until Discontinued 1247 (Given - Provider: Belle Erickson RN)1802 (Given - Provider: Belle Erickson RN)2333 (Not Given - Provider: Lamont Laboy RN - Reason: Patient refused PO med) 0633 (Given - Provider: Lamont Laboy RN)1344 (Given - Provider: Jaylen Aponte RN)1838 (Given - Provider: Belle Erickson RN)2312 (Given - Provider: Lamont Laboy RN) 0620 (Given - Provider: Lamont Laboy RN)1218 (Given - Provider: Karishma Cabrera RN)1800 (Canceled Entry - Provider: Automatic Discharge Provider - Comment: Automatically canceled at discontinue of medication order) apixaban (ELIQUIS) tablet 5 mg 5 mg, Oral, 2 times daily, First dose on Wed08/27/25 at 0900, For 90 days, Indications: Treatment of VTE (acute) 09 (Given - Provider: Belle Erickson RN)2019 (Given - Provider: Lamont Laboy RN) 100 (Given - Provider: Jaylen Aponte RN)210 (Given - Provider: Lamont Laboy RN) 0940 (Given - Provider: Karishma Cabrera, JENNA) ascorbic acid (VITAMIN C) tablet 500 mg 500 mg, Oral, Daily, First dose on 08/20/25 at 0900, Until Discontinued 09 (Given - Provider: Belle Erickson RN) 100 (Given - Provider: Jaylen Aponte RN) 0939 (Given - Provider: Karishma Cabrera, JENNA) atorvaSTATin (LIPITOR) tablet 20 mg 20 mg, Oral, Nightly, First dose on Wed08/20/25 at 2100, Until Discontinued 2019 (Given - Provider: Lamont Laboy RN) 210 (Given - Provider: Lamont Laboy RN) buprenorphine-naloxone (SUBOXONE) 8-2 mg sublingual film 1 Film 1 Film, Sublingual, 3 times daily, First dose on Wed08/28/25 at 2200, Until Discontinued 0940 (Given - Provider: Belle Erickson RN)1545 (Given - Provider: Belle Erickson RN)2136 (Given - Provider: Lamont Laboy RN) 1005 (Given - Provider: Jaylen Aponte RN)1629 (Given - Provider: Belle Erickson RN)214 (Given - Provider: Lamont Laboy RN) 0938 (Given - Provider: Karishma Cabrera RN)1554 (Given - Provider: Patrick Craft RN) cholecalciferol (VITAMIN D3) tablet 1,000 Units 1,000 Units, Oral, Daily, First dose on Wed08/20/25 at 0900, Until Discontinued 0939 (Given - Provider: Belle Erickson RN) 1005 (Given - Provider: Jaylen Aponte RN) 0939 (Given - Provider: Karishma Cabrera RN) cycloSPORINE (RESTASIS) 0.05 % ophthalmic emulsion 1 drop 1 drop, Both Eyes, 2 times daily, First dose on Wed08/20/25 at 0900, Until Discontinued 0940 (Given - Provider: Belle Erickson RN)203 (Given - Provider: Lamont Laboy RN) 1005 (Given - Provider: Jaylen Aponte RN)210 (Given - Provider: Lamont Laboy RN) 0940 (Given - Provider: Karishma Cabrera RN) ferrous sulfate tablet 325 mg 325 mg, Oral, Daily with breakfast, First dose on Wed08/21/25 at 0800, Until Discontinued 0858 (Given - Provider: Belle Erickson RN) 0924 (Given - Provider: Jaylen Aponte RN) 0939 (Given - Provider: Karishma Cabrera RN) furosemide (LASIX) tablet 20 mg 20 mg, Oral, 3 times weekly (Once per day on Wednesday), First dose on Wed09/05/25 at 0900, Until Discontinued 0939 (Given - Provid er: Karishma Cabrera RN) heparin (porcine) (PF) injection 10 Units/mL (flush)(Linked Group 1) 10-40 Units (1-4 mL), Intravenous, Daily, First dose on Wed08/29/25 at 1230, 1mL per lumen 0922 (Not Given - Provider: Belle Erickson RN - Reason: Other - Indicate below - Comment: no central line) 0953 (Not Given - Provider: Jaylen Aponte RN - Reason: Other - Indicate below - Comment: no central line) 0804 (Not Given - Provider: Karishma Cabrera RN - Reason: Contraindicated - Comment: No central line) lactated ringers (LR) BOLUS 500 mL (COMPLETED) 500 mL, Intravenous, Once, On Wed09/09/25 at 1300, For 1 dose, Routine, Administer over 1 Hours 1233 (New Bag - Provider: Jaylen Aponte, JENNA) levothyroxine (SYNTHROID, LEVOXYL) tablet 50 mcg 50 mcg, Oral, Daily (thyroid, PPIs, heparin flush), First dose on Wed08/20/25 at 0600, Until Discontinued 0530 (Given - Provider: Cherri Shipman RN) 0633 (Given - Provider: Lamont Laboy RN) 0620 (Given - Provider: Lamont Laboy RN) lidocaine 4 % patch 2 patch 2 patch, Topical, Administer over 12 Hours, Every 24 hours, First dose on Wed09/06/25 at 1200, Patch should be applied for 12 hours on and 12 hours off. Location(s) to be applied to: bilateral shoulders 1247 (Not Given - Provider: Belle Erickson RN - Reason: Patient Refused) 1455 (Not Given - Provider: Belle Erickson RN - Reason: Patient Refused) 1122 (Not Given - Provider: Karishma Cabrera RN - Reason: Patient Refused) nnqlok-pmwvuiji-mjdsty e (pork) (CREON) 24,000-76,000 -120,[address] capsule 48,000 units of lipase 48,000 units of lipase, Oral, 3 times daily with meals, First dose on Wed08/20/25 at 1200, Until Discontinued 0858 (Given - Provider: Belle Erickson RN)1246 (Given - Provider: Belle Erickson RN)1908 (Given - Provider: Belle Erickson RN) 0924 (Given - Provider: Jaylen Aponte, JENNA)1435 (Given - Provider: Belle Erickson RN)1935 (Given - Provider: Lamont Laboy RN - Comment: dinner ordered but hasn't arrived) 0938 (Given - Provider: Karishma Cabrera RN)1200 (Not Given - Provider: Karishma Cabrera RN - Reason: Patient Refused - Comment: Declined,had breakfast late.)1730 (Canceled Entry - Provider: Automatic Discharge Provider - Comment: Automatically canceled at discontinue of medication order) methocarbamoL (ROBAXIN) tablet 500 mg 500 mg, Oral, 4 times daily, First dose on Wed08/27/25 at 2200, Until Discontinued 0940 (Given - Provider: Belle Erickson RN)1413 (Given - Provider: Belle Erickson RN)1802 (Given - Provider: Belle Erickson RN)2136 (Given - Provider: Lamont Laboy RN) 1005 (Given - Provider: Jaylen Aponte RN)1436 (Given - Provider: Belle Erickson RN)1838 (Given - Provider: Belle Erickson RN)2141 (Given - Provider: Lamont Laboy RN) 0939 (Given - Provider: Karishma Cabrera RN)1437 (Given - Provider: Karishma Cabrera RN)1800 (Canceled Entry - Provider: Automatic Discharge Provider - Comment: Automatically canceled at discontinue of medication order) metoprolol ER (TOPROL-XL) 24 hr tablet 12.5 mg 12.5 mg, Oral, 2 times daily, First dose on Wed09/04/25 at 0900, Do not crush., Hold Parameters: HR, SBP, Hold for HR less than: 60 bpm, Hold for SBP less than: 100 mmHg 0940 (Given - Provider: Belle Erickson RN)2020 (Given - Provider: Lamont Laboy RN) 1004 (Given - Provider: Jaylen Aponte RN - Comment: different BP readings L arm, R leg & L leg - MD aware, confirmed ok to administer)2105 (Given - Provider: Lamont Laboy RN) 0939 (Given - Provider: Karishma Cabrera RN) mometasone-formoterol (Dulera) 100-5 mcg/actuation inhaler 2 puff 2 puff, Inhalation, 2 times daily, First dose on Wed08/20/25 at 0900, Until Discontinued 0940 (Given - Provider: Belle Erickson RN)2020 (Given - Provider: Lamont Laboy RN) 102 (Given - Provider: Jaylen Aponte RN)210 (Given - Provider: Lamont Laboy RN) 0941 (Given - Provider: Karishma Cabrera, JENNA) Multivitamin with Minerals tablet 1 tablet 1 tablet, Oral, Daily, First dose on Wed08/20/25 at 1600, Until Discontinued 0940 (Given - Provider: Belle Erickson RN) 1004 (Given - Provider: Jaylen Aponte RN) 0940 (Given - Provider: Karishma Cabrera, JENNA) omeprazole (PriLOSEC) DR capsule 20 mg 20 mg, Oral, Daily (thyroid, PPIs, heparin flush), First dose on Wed08/20/25 at 0900, Until Discontinued 0530 (Given - Provider: Cherri Shipman RN) 0633 (Given - Provider: Lamont Laboy RN) 0620 (Given - Provider: Lamont Laboy RN) PARoxetine (PAXIL) tablet 20 mg 20 mg, Oral, Every morning, First dose on Wed08/20/25 at 0900, Until Discontinued 0939 (Given - Provider: Belle Erickson RN) 1005 (Given - Provider: Jaylen Aponte RN) 0940 (Given - Provider: Karishma Cabrera, JENNA) peripheral line: sodium chloride (NS) 0.9% flush(Linked Group 2) 3 mL, Intravenous, Every 12 hours scheduled, First dose on Wed08/20/25 at 0900, Until Discontinued 0959 (Not Given - Provider: Belle Erickson RN - Reason: Other - Indicate below - Comment: kvo running)1942 (Not Given - Provider: Lamont Laboy RN - Reason: Other - Indicate below - Comment: Duplicate) 110 (Given - Provider: Jaylen Aponte RN)2122 (Given - Provider: Lamont Laboy RN) 0941 (Not Given - Provider: Karishma Cabrera RN - Reason: Other - Indicate below - Comment: duplicate order) peripheral line: sodium chloride (NS) 0.9% flush(Linked Group 3) 3 mL, Intravenous, Every 12 hours scheduled, First dose on Wed09/05/25 at 2100, Until Discontinued 958 (Not Given - Provider: Belle Erickson RN - Reason: Other - Indicate below - Comment: kvo running)2033 (Given - Provider: Lamont Laboy RN) 110 (Given - Provider: Jaylen Aponte, JENNA)2122 (Not Given - Provider: Lamont Laboy RN - Reason: Other - Indicate below - Comment: Duplicte order) 0941 (Given - Provider: Karishma Cabrera RN) polyethylene glycol (MIRALAX) packet 17 g 17 g, Oral, 2 times daily, First dose (after last modification) on Wed08/22/25 at 0900, Until Discontinued 938 (Given - Provider: Belle Erickson RN)2020 (Given - Provider: Lamont Laboy RN) 100 (Given - Provider: Jaylen Aponte RN)2104 (Given - Provider: Lamont Laboy RN) 937 (Not Given - Provider: Karishma Cabrera RN - Reason: Patient Refused - Comment: Declined, lots of loose stools) pregabalin (LYRICA) capsule 100 mg 100 mg, Oral, 2 times daily, First dose (after last modification) on Wed09/09/25 at 2100, Until Discontinued 2103 (Given - Provider: Lamont Laboy RN) 938 (Given - Provider: Karishma Cabrera RN) pregabalin (LYRICA) capsule 75 mg (CANCELED) 75 mg, Oral, 2 times daily, First dose on Wed08/26/25 at 1100, Until Discontinued 939 (Given - Provider: Belle Erickson RN)2020 (Given - Provider: Lamont Laboy RN) 100 (Given - Provider: Jaylen Aponte, JENNA) sacubitriL-valsartan (ENTRESTO) 24 mg-26 mg per tablet 0.5 tablet 0.5 tablet, Oral, 2 times daily, First dose on Wed08/21/25 at 0930, Hold Parameters: SBP, Hold for SBP less than: 100 mmHg 09 (Given - Provider: Belle Erickson RN)2020 (Given - Provider: Lamont Laboy RN) 100 (Given - Provider: Jaylen Aponte RN - Comment: different BP readings L arm, R leg & L leg - MD aware, confirmed ok to administer)2104 (Given - Provider: Lamont Laboy, JENNA) 0940 (Given - Provider: Karishma Cabrera, JENNA) sennosides (SENOKOT) tablet 17.2 mg 17.2 mg, Oral, 2 times daily, First dose (after last modification) on Wed08/22/25 at 2100, Until Discontinued 0939 (Given - Provider: Belle Erickson RN)2019 (Given - Provider: Lamont Laboy, JENNA) 100 (Given - Provider: Jaylen Aponte, JENNA)2105 (Given - Provider: Lamont Laboy, JENNA) 0940 (Not Given - Provider: Karishma Cabrera RN - Reason: Patient Refused - Comment: Declined, lots of loose stools) Temporary Central Access: sodium chloride (NS) 0.9% flush(Linked Group 1) 10-40 mL, Intravenous, Daily, First dose on Wed08/29/25 at 1230, Until Discontinued 09 (Not Given - Provider: Belle Erickson RN - Reason: Other - Indicate below - Comment: no central line) 0952 (Not Given - Provider: Jaylen Aponte RN - Reason: Other - Indicate below - Comment: no central line) 0942 (Not Given - Provider: Karishma Cabrera RN - Reason: Contraindicated) tiotropium bromide (SPIRIVA RESPIMAT) 2.5 mcg/actuation inhalation 2 puff 2 puff, Inhalation, Daily (RT), First dose on Wed08/20/25 at 0900, Until Discontinued 0940 (Given - Provider: Belle Erickson RN) 102 (Given - Provider: Jaylen Aponte, JENNA) 0941 (Given - Provider: Karishma Cabrera, JENNA) PRN Medication Order 09/08/2025 09/09/2025 09/10/2025 aluminum-magnesium hydroxide-simethicone (Mylanta/Maalox) (200-200-20 mg)/5 mL suspension 30 mL 30 mL, Oral, Every 6 hours PRN, Starting on Wed08/25/25 at 1428, Until Wed09/10/25 at 2031, heartburn, indigestion, cramping benzocaine-menthoL (CHLORASEPTIC) 6-10 mg lozenge 1 lozenge 1 lozenge, Mouth/Throat, Every 4 hours PRN, Starting on Wed08/20/25 at 2133, Until Wed09/10/25 at 2030, sore throat bisacodyl (DULCOLAX) suppository 10 mg 10 mg, Rectal, Daily PRN, Starting on Wed08/20/25 at 1525, Until Wed09/10/25 at 2030, constipation calcium carbonate (TUMS) chewable tablet 500 mg 500 mg, Oral, 3 times daily PRN, Starting on Wed08/20/25 at 1413, Until Wed09/10/25 at 2030, indigestion 0349 (Given - Provider: Lamont Laboy RN) 1218 (Given - Provider: Karishma Cabrera RN) guaiFENesin (ROBITUSSIN) 100 mg/5 mL syrup 200 mg 200 mg, Oral, Every 4 hours PRN, Starting on Wed08/24/25 at 0031, Until Wed09/10/25 at 2030, cough 1844 (Given - Provider: Belle Erickson RN) heparin (porcine) (PF) injection 10 Units/mL (flush)(Linked Group 1) 10-40 Units (1-4 mL), Intravenous, As needed, line care, after intermittent infusions, transfusions or blood draw, Starting on Wed08/29/25 at 1147, 1mL per lumen ipratropium-albuteroL (DUONEB) 0.5-2.5 mg/3 mL nebulizer solution 3 mL 3 mL, Nebulization, Every 6 hours PRN, Starting on Wed08/20/25 at 0848, Until Wed09/10/25 at 203, wheezing 1034 (Given - Provider: Jaylen Aponte RN) lidocaine HCL (URO-JET) 2 % jelly 5 mL (COMPLETED) 5 mL, Urethral, As needed, 1 dose, Starting on 08/25/25 at 2352, Until 09/08/25 at 0530, For patient comfort 0530 (Given - Provider: Cherri Shipman RN) lidocaine HCL (URO-JET) 2 % jelly 5 mL 5 mL, Urethral, As needed, 1 dose, Starting on Wed08/29/25 at 2355, Until Wed09/10/25 at 2030, For patient comfort LORazepam (ATIVAN) tablet 0.5 mg 0.5 mg, Oral, 2 times daily PRN, Starting on Wed08/21/25 at 2000, Until Wed09/10/25 at 2030, anxiety 1117 (Given - Provider: Belle Erickson RN)2020 (Given - Provider: Lamont Laboy RN) 1036 (Given - Provider: Jaylen Aponte RN)184 (Given - Provider: Belle Erickson RN) 0129 (Given - Provider: Lamont Laboy RN) LORazepam (ATIVAN) tablet 1 mg 1 mg, Oral, Once as needed, 1 dose, Starting on Wed09/03/25 at 1104, Until Wed09/10/25 at 2030, anxiety, Pre-MRI LORazepam (ATIVAN) tablet 1 mg 1 mg, Oral, Daily PRN, Starting on Wed09/05/25 at 1700, Until Wed09/10/25 at 2030, anxiety, Pre MRI ondansetron (ZOFRAN) injection 4 mg(Linked Group 4) 4 mg, Intravenous, Every 8 hours PRN, nausea, vomiting, if NOT tolerating PO, Starting on Wed08/24/25 at 0927 ondansetron (ZOFRAN-ODT) disintegrating tablet 4 mg(Linked Group 4) 4 mg, Oral, Every 8 hours PRN, Starting on Wed08/24/25 at 0927, Until Wed09/10/25 at 2030, nausea, vomiting, if tolerating PO oxyCODONE (ROXICODONE) tablet 15 mg 15 mg, Oral, Every 4 hours PRN, Starting on Wed09/04/25 at 1012, Until Wed09/10/25 at 2030, severe (7-10) pain 0326 (Given - Provider: Cherri Shipman RN)0829 (Given - Provider: Belle Erickson RN)1246 (Given - Provider: Belle Erickson RN)1650 (Not Given - Provider: Belle Erickson RN - Reason: Other - Indicate below - Comment: Med dropped)165 (Given - Provider: Belle Erickson RN)210 (Given - Provider: Lamont Laboy RN) 0326 (Given - Provider: Lamont Laboy RN)0632 (Not Given - Provider: Lamont Laboy RN - Reason: Other - Indicate below - Comment: Too soon from last dose, returned)0924 (Given - Provider: Jaylen Aponte RN)1344 (Given - Provider: Jaylen Aponte RN)1729 (Not Given - Provider: Jaylen Aponte RN - Reason: Other - Indicate below - Comment: med dropped on floor after getting scanned)1733 (Given - Provider: Jaylen Aponte RN)2105 (Given - Provider: Lamont Laboy RN) 0100 (Given - Provider: Lamont Laboy RN)0620 (Given - Provider: Lamont Laboy RN)1218 (Given - Provider: Karishma Cabrera RN)1606 (Given - Provider: Patrick Craft RN) peripheral line: sodium chloride 0.9 % (NS) flush(Linked Group 2) 3 mL, Intravenous, Every 1 min PRN, Starting on Wed08/20/25 at 0834, Until Wed09/10/25 at 2030, line care peripheral line: sodium chloride 0.9 % (NS) flush(Linked Group 3) 3 mL, Intravenous, Every 1 min PRN, Starting on Wed09/05/25 at 1320, Until Wed09/10/25 at 2030, line care Temporary Central Access: 0.9% sodium chloride (NS) flush(Linked Group 1) 10-40 mL, Intravenous, As needed, Starting on Wed08/29/25 at 1147, Until Wed09/10/25 at 2030, line care, after intermittent infusions, transfusions or blood draw Linked Groups Order Group 1: Temporary Central Access: sodium chloride (NS) 0.9% flushJump to med 10-40 mL, Intravenous, Daily, First dose on Wed08/29/25 at 1230, Until Discontinued And heparin (porcine) (PF) injection 10 Units/mL (flush)Jump to med 10-40 Units (1-4 mL), Intravenous, Daily, First dose on Wed08/29/25 at 1230, 1mL per lumen And Temporary Central Access: 0.9% sodium chloride (NS) flushJump to med 10-40 mL, Intravenous, As needed, Starting on Wed08/29/25 at 1147, Until Wed09/10/25 at 2030, line care, after intermittent infusions, transfusions or blood draw And heparin (porcine) (PF) injection 10 Units/mL (flush)Jump to med 10-40 Units (1-4 mL), Intravenous, As needed, line care, after intermittent infusions, transfusions or blood draw, Starting on Wed08/29/25 at 1147, 1mL per lumen Group 2: Insert and Maintain Peripheral IV (CANCELED) Routine, Continuous, Starting on Wed08/20/25 at 0835, Until Specified And peripheral line: sodium chloride (NS) 0.9% flushJump to med 3 mL, Intravenous, Every 12 hours scheduled, First dose on Wed08/20/25 at 0900, Until Discontinued And peripheral line: sodium chloride 0.9 % (NS) flushJump to med 3 mL, Intravenous, Every 1 min PRN, Starting on Wed08/20/25 at 0834, Until Wed09/10/25 at 2030, line care Group 3: Insert and Maintain Peripheral IV (CANCELED) Routine, Continuous, Starting on Wed09/05/25 at 1321, Until Specified And peripheral line: sodium chloride (NS) 0.9% flushJump to med 3 mL, Intravenous, Every 12 hours scheduled, First dose on Wed09/05/25 at 2100, Until Discontinued And peripheral line: sodium chloride 0.9 % (NS) flushJump to med 3 mL, Intravenous, Every 1 min PRN, Starting on Wed09/05/25 at 1320, Until Wed09/10/25 at 2030, line care Group 4: ondansetron (ZOFRAN) injection 4 mgJump to med 4 mg, Intravenous, Every 8 hours PRN, nausea, vomiting, if NOT tolerating PO, Starting on Wed08/24/25 at 0927 Or ondansetron (ZOFRAN-ODT) disintegrating tablet 4 mgJump to med 4 mg, Oral, Every 8 hours PRN, Starting on Wed08/24/25 at 0927, Until Wed09/10/25 at 2030, nausea, vomiting, if tolerating PO documented in this encounter Additional Health Concerns Active Problems Noted Date Diagnosed Date Autogenerated Problem 05/08/2025 Autogenerated Problem 07/31/2025 Infection Onset Date Last Indicated Resolved Time 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 [place] [address] PCP - General Internal Medicine 08/18/24 documented as of this encounter
--- OUTSIDE RECORDS SUMMARY | 2025-08-30 04:20 | XMS_ITS ---
Author Organization [facility] Address [address] [place] [address] Care Team Providers Care Classifier Operator Name Role Phone Shivani Burger Unavailable [phone] REASON FOR VISIT STR follow up Encounters Encounter Location Date Provider Diagnosis [facility] [address] [place] [address] 08/30/2025 Shivani Burger Plan Of Treatment No Information History and Physical Notes * Examination Category Sub-Category Detail Notes Category Not es General Examination . Progress Notes * Sandra ZIEGLERCathyOB:1950 ( 74 yo F)Acc No.[id number]:08/30/2025 Progress Notes Patient: Mayra Isaac Provider: Cam Garcia :1950 A ge:74 Y S ex:Female Date:08/30/2025 Address:[address] [place], [place] [phone] Subjective: * Chief Complaints: * S TR follow up * Social History: S ocial History: S moking . Objective: * Examination: G eneral Examination: . Care Plan Details* * Electronic signature of Varinder Burger NP on 09/11/2025 at 08:55 AM EST Sign off status: Pending * Provider: Cam Garcia Date: 10/31/2024 Generated for Deya vinson/Rebecca/eTransmitting on: 08:55 AM EST
[2025-09-11 07:19] LABS: MANUAL DIFF FLAG NO
[2025-09-11 07:47] LABS: Hematocrit 32.4 % (37.0-47.0); Hemoglobin 9.8 g/dl (12.0-16.0); Imm Gran Abs Auto 0.02 X10*3/uL (0.00-0.03); Imm Gran Pct Auto 0.4 % (0.0-0.4); Lymphocytes Absolute Auto 1.5 X10*3/uL (1.2-4.9); Mean Corpuscular HGB Conc 30.2 g/dl (31.0-35.0); Mean Corpuscular Hemoglobin 28.3 pg (27.0-33.0); Mean Corpuscular Volume 93.6 fL (80.0-98.0); NRBC Abs Auto 0.000 X10*3/uL (0.0-0.012); NRBC Pct Auto 0.0 /100WBC (0.0-0.2); Platelet Count 269 X10*3/uL (160-400); Red Blood Count 3.46 X10*6/uL (4.20-5.50); White Blood Count 5.1 X10*3/uL (4.8-10.8)
[2025-09-11 08:01] LABS: Alanine Aminotransferase 46 U/L (0-31); Albumin Level 2.8 g/dL (3.5-5.0); Alkaline Phosphatase 183 U/L (39-117); Anion Gap 9 (12-20); Aspartate Amino Transferase 66 U/L (5-31); Blood Urea Nitrogen 17 mg/dL (9-16); Calcium 8.7 mg/dL (8.4-10.2); Carbon Dioxide 32 mmol/L (22-29); Chloride 99 mmol/L (96-108); Estimated Glomerular Filt Rate > 60; Potassium 4.0 mmol/L (3.3-5.1); Sodium 136 mmol/L (135-145); Total Protein 6.9 g/dL (6.5-8.0)
--- OUTSIDE RECORDS SUMMARY | 2025-09-11 08:55 | XMS_ITS | Encounter Summary ---
Author Organization [facility] Address [address] [place] [address] Care Team Providers Care Chapter Relations Administrator Name Role Phone Vanessa Culver MD Primary Care Provider [phone] Reason for Visit * Reason Comments E-prescribing Refill Request Encounter Details Date Type Department Care Team ([facility] Contact Info) Description 08/01/2022 Refill [facility] Adult Medicine [address] [place] [phone] Albin Castellon MD [address] [place] [phone] E-prescribing Refill Request Social History Tobacco Use Types Packs/Day Years Used Date Smoking Tobacco: Former Cigarettes 1 40 0 01/19/1977 - 01/31/2017 Smokeless Tobacco: Never Comments:started at age 14 Alcohol Use Standard Drinks/Week Comments No 0 (1 standard drink = 0.6 oz pure alcohol) used to be an alcoholic , sober since 1991 PHQ-2 Answer Date Recorded PHQ-2 Score 0 06/24/2021 [facility] [place] [facility] Occupat ional Health - Occupational Stress Questionnaire Answer Date Recorded Do you feel stress - tense, restless, nervous, or anxious, or unable to sleep at night because your mind is troubled all the time - these days? Rather much 11/14/2020 Exercise Vital Sign Answer Date Recorde d On average, how many days pe r week do you engage in moderate to strenuous exercise (like a brisk walk)? 7 days 11/14/2020 On average, how many minutes do you engage in exercise at this level? 60 min 11/14/2020 Intimate Partner Violence Answer Date R ecorded Within the last year, have y ou been afraid of your partner or ex-partner? No 11/14/2020 Within the last year, have y ou been humiliated or emotionally abused in other ways by your partner or ex-partner? No 11/14/2020 Within the last year, have y ou been kicked, hit, slapped, or otherwise physically hurt by your partner or ex-partner? No 11/14/2020 Within the last year, have y ou been raped or forced to have any kind of sexual activity by your partner or ex-partner? No 11/14/2020 Feel Safe at Home Not on file 11/14/2020 Social Connections Answer Date Recorded Phone Communication Once a week 06/24/2021 Get together with friends / family Once a week 06/24/2021 Attend gnosticist services Never 2020 Club Membership No 06/24/2021 Club Attendance More than 4 times per year 06/24 Marital Status 06/24/2021 Financial Resource Strain Answer Date R ecorded Difficulty paying for basics Not hard at all 08/2021 Difficulty paying for utilities Not on file 06/24/2021 Food Insecurity Answer Date Recorded Worry that food will run out Never true 08/2021 Inability to get food Never true 06/24/2021 Transportation Needs Answer Date Record ed Lacking transport to medical appts No 06/24/2021 Lacking transport to non-medical No 06/24/2021 Housing Stability Answer Date Recorded Unable to Pay for Housing in the Last Year No 06/24/2021 Number of Places Lived in the Last Year 1 06/24/2021 Unstable Housing in the Last Year No 06/24/2021 Comments No Sex and Gender Information Value Date Recorded Sex Assigned at Not on file Legal Sex Female 8:31 PM EST Gender Identity Not on file Sexual Orientation Not on file Occupation Industry Job Start Date 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 Lalo Grove next November - January 06 CHF documented as of this encounter Goals Goal Patient Goal Type Associated Problems Recent Progress Patient-Stated? Author Quit smoking / using tobacco Lifestyle No Ana Vides documented as of this encounter Visit Diagnoses Not on filedocumented in this encounter Care Teams Chapter Relations Administrator Relationship Specialty Start Date End Date Vanessa Culver MD PCP - General 08/31/14 documented as of this encounter
--- OUTSIDE RECORDS SUMMARY | 2025-09-11 08:55 | XMS_ITS | Encounter Summary ---
Author Organization [facility] Address [address] [place] [address] Care Team Providers Care Advertising Manager Name Role Phone Vanessa Culver MD Primary Care Provider [phone] Reason for Visit * Reason Comments Unable To Schedule The patient has decl ined the scheduling for MAMMOGRAM SCREENING TOMOSYNTHESIS, BILATERAL FC. Patient calling Hilaria to reschedule exam. Encounter Details Date Type Department Care Team ([facility] Contact Info) Description 04/09/2022 Telephone CALL CENTER [address] [phone] Vanessa Culver MD [facility] [address] [facility] [address] [place] [address] Unable To Schedule (The patient has declined the scheduling for MAMMOGRAM SCREENING TOMOSYNTHESIS, BILATERAL FC. 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 The patient has declined the scheduling for MAMMOGRAM SCREENING TOMOSYNTHESIS, BILATERAL FC the order will be pull from [facility] 06/10/2022. Patient calling Hilaria to reschedule exam. Thank You Radiology Scheduling Dept documented in this encounter Plan of Treatment Upcoming Encounters Date Type Department Care Team (Late st Contact Info) Description 12/19/2025 1:00 PM EDT Office Visit [facility] [address] [place] [phone] Lalo Grove MD [address] [place] [phone] F/u with Dr. Lalo Grove next November - January 06 CHF documented as of this encounter Goals Goal Patient Goal Type Associated Problems Recent Progress Patient-Stated? Author Quit smoking / using tobacco Lifestyle No Ana Vides documented as of this encounter Visit Diagnoses Not on filedocumented in this encounter Care Teams Advertising Manager Relationship Specialty Start Date End Date Vanessa Culver MD PCP - General 08/31/14 documented as of this encounter
--- OUTSIDE RECORDS SUMMARY | 2025-09-11 08:55 | XMS_ITS | Clinical Summary ---
Author Organization [facility] Address [address] [place] [address] Care Team Providers Care Laboratory Chief Name Role Phone Vanessa Culver MD Primary Care Provider [phone] Allergies Active Allergy Reactions Criticality Noted Date Comments Gabapentin Headache,Other (see comments) 02/26/2025 Shakes, syncope Psychological Tetracyclines Rash Medium Medications * This document contains information received from the source organization and may not represent a complete record from that organization. MELATONIN ORAL 10 mg as needed. Active VITAMIN B COMPLEX ORAL Active biotin 1 mg tablet Take 1,000 mcg by mouth daily. Active ascorbic acid, vitamin C, 500 mg capsule Take 1 capsule by mouth daily. Active albuterol (PROAIR HFA,VENTOLIN HFA) 90 mcg inhaler every 6 hours as needed. 01/31/20 Active atorvastatin (LIPITOR) 20 mg tablet Take 20 mg by mouth nightly. 08/19/20 22 Active Entresto 24-26 mg per tablet Take 1 tablet by mouth 2 times a day. 08/19/20 22 Active levothyroxine (SYNTHROID, LEVOTHROID) 50 mcg tablet Take 1 tablet by mouth every morning. 08/19/20 22 Active metoprolol succinate XL (TOPROL XL) 25 mg tablet Take 1 tablet by mouth daily. 07/08/20 22 Active Restasis 0.05 % ophthalmic emulsion Instill 1 drop into both eyes 2 times a day. 10/08/19 23 Active budesonide-glyco pyr-formoterol (Breztri Aerosphere) 160-9-4.8 mcg/actuation HFA aerosol inhaler Inhale 160 mcg by mouth 2 (two) times a day. Inhaler BID Active lipase-protease- amylase (Zenpep) 25,000-79,000- 105,000 unit capsule,delayed release(DR/EC) Take 0.1 capsules by mouth See admin instructions. Take 2 before + 2 after each meal (3) + 1 before +1 after each snack (3) 540 capsule 11 12/20/19 25 Active POTASSIUM CHLORIDE ORAL Take by mouth. A ctive MAGNESIUM ORAL Take by mouth. Active furosemide (LASIX) 20 mg tablet Take 20 mg by mouth 2 times a day. Active Vitamin D3 25 mcg (1,000 unit) capsule Take 1 capsule by mouth once a day. Active ALPRAZolam (XANAX) 0.5 mg tablet Take 0.5 mg by mouth daily as needed. anxiety 05/17/20 25 Active diazePAM (VALIUM) 5 mg tablet TAKE 1 TABLET BY MOUTH 1 HOUR BEFORE PROCEDURE 04/26/20 25 Active rOPINIRole (REQUIP) 0.5 mg tabletIndication s:Restless leg syndrome Take 1 tablet (0.5 mg total) by mouth nightly. Take 1-3 hours before bedtime. 90 tablet 07/09/20 25 Active buprenorphine-na loxone (SUBOXONE) 8-2 mg film SL filmIndications: Chronic pancreatitis, unspecified pancreatitis type Place 1 Film (8 mg of buprenorphine total) under the tongue every 8 hours for 28 days. 84 Film 07/23/20 25 Active Active Problems Problem Noted Date Diagnosed Date Restless leg syndrome 06/11/2025 Assessment & Plan (06/11/2025 5:11 PM EDT): Mayra shared a video of her legs moving uncontrollably and states she has a diagnosis of RLS in the past, but she thinks anxiety is causing the issue. DDX restless leg syndrome, akathisia. Will send ropinirole to start Epigastric pain 05/29/2025 Assessment & Plan (05/29/2025 6:15 PM EDT): Intermittent epigastric pain reportedly different from her chronic pancreatitis pain with tenderness to palpation on exam today, unrevealing upper GI series and short-lived response to PPI require further evaluation. Differential diagnosis includes peptic disease, stool retention, chronic pancreatitis pain and upper GI tract neoplasia. - Continue PPI - Will proceed with upper endoscopy. RBA were reviewed. - Bowel regimen including high-fiber diet/fiber supplementation, use of osmotic laxatives to ensure complete evacuation Presbyesophagus 05/28/2025 Assessment & Plan (05/29/2025 6:17 PM EDT): The symptoms described as throat closing can represent anxiety/ globus or regurgitation related to opioids induced delayed gastric emptying. There is no evidence of reflux on upper GI series. Intermittent dysphagia to solids can be related to presbyesophagus as esophageal dysmotility was clearly seen on recent UGI series. - The patient was applauded for successful discontinuation of opioids and her ongoing efforts to taper down Suboxone - Small frequent meals, avoidance of late meals and reflux provoking foods - Cut the food in small pieces, masticate carefully and take a sip of water after each bite - Continue acid suppression Encounter for chronic pain management 05/17/2025 GERD (gastroesophageal reflux disease) Severe persistent asthma, uncomplicated 11/02/19 25 Supplemental oxygen dependent 11/02/2024 Acute respiratory distress 10/10/2024 Non-traumatic rhabdomyolysis 09/21/2024 Liver cyst 08/21/2024 Overview (01/24/2025): SEEN IN SERIAL CHEST CT Prediabetes 06/29/2024 Major depressive disorder, recurrent episode, mo derate 05/30/2024 Rotator cuff arthropathy of right shoulder 04/05 Compression fracture of lumb ar vertebra with routine healing 02/29/2024 Chronic right-sided low back pain with right-robert ed sciatica 02/17/2024 Pacemaker 07/22/2023 S/P placement of cardiac pacemaker 07/22/2023 Sick sinus syndrome 06/18/2023 Cardiomyopathy 06/10/2023 Weakness 05/11/2023 Respiratory abnormality 05/11/2023 Atrophic rhinitis 01/20/2023 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 DNS (deviated nasal septum) 01/20/2023 Hoarseness 01/20/2023 Throat tightness 01/20/2023 Atherosclerosis of coronary artery of [place] heart without angina pectoris 12/17/2022 Malignant neoplasm of left lung 11/12/2022 Chronic bronchitis with COPD (chronic obstructive pulmonary disease) 11/12/2022 Painful and cold lower extremity 08/20/2022 Adenomatous polyp of ascending colon 05/19/2022 Anxiety 04/23/2022 Assessment & Plan (06/11/2025 5:17 PM EDT): Mayra will follow-up with her psychiatrist and primary care doctor regarding the start of benzodiazepines or other medications that may help her to manage the crippling anxiety she is experiencing. She reports sleeping a few hours at night due to anxiety interrupting her sleep. Assessment & Plan (05/17/2025 6:57 PM EDT): Mayra continues to experience anxiety that is significantly impacting her daily life. She reports having panic attacks, primarily at night. To manage these episodes, she typically reaches out to friends or family or waits for the symptoms to resolve on their own. She has trialed several SSRIs in the past without meaningful improvement in her anxiety symptoms. Given the severity and pattern of her panic attacks, she may benefit from a short-acting benzodiazepine, such as Ativan (lorazepam) 0.5 mg, to be used as needed, up to one tablet daily, with a maximum of 5 tablets per month. We discussed the potential risks, including dependence, which is considered low with limited, short-term use. We also reviewed the serious risks of combining benzodiazepines with Suboxone, including sedation and respiratory depression. She was advised not to take both medications at the same time and to use extreme caution if prescribed both. Mayra should further discuss this option with her psychiatrist or primary care provider, who can assess the appropriateness of prescribing a short-acting benzodiazepine in the context of her full clinical picture. Bilateral dry eyes 12/01/2021 Blepharitis of upper and lower eyelids of both e yes 12/01/2021 Uncomplicated opioid dependence 11/04/2021 Overview (01/24/2025): Refer to [facility] OV 11/04/21: Encounter diagnosis: Uncomplicated opioid dependence (CMS/HCC) (Primary Dx); Refer to [facility] OV 11/04/21: Encounter diagnosis: Uncomplicated opioid dependence (CMS/HCC) (Primary Dx); Assessment & Plan (06/11/2025 5:14 PM EDT): Pt will continue Suboxone 8-2 mg 3 times a day. Advised to continue the medication since it is allowing her to become more stable. As patient has gains more recovery time, can discuss transitioning off suboxone. 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 Cardiac consult scheduled for 09/20/2019 New on EKG 09/2019; neg troponins in ER. Cardiac consult scheduled for 09/20/2019 Rectus sheath hematoma 08/03/2019 Hypertension 02/09/2019 Posterior vitreous detachment of both eyes 01/16 Pleuritic chest pain 10/18/2017 Insomnia 06/29/2017 Generalized anxiety disorder 05/27/2017 Adenocarcinoma of left lung 04/19/2017 Cervical lymphadenopathy 02/04/2017 Nasopharyngeal mass 02/04/2017 Shortness of breath 01/19/2017 Centrilobular emphysema 01/19/2017 Lung nodule 01/18/2017 Pulmonary emphysema 01/18/2017 Osteoporosis 08/03/2016 Benign essential hypertension 11/04/2015 Migraine headache 08/12/2015 Vitamin D deficiency 07/15/2015 Cough 12/05/2014 Lyme disease 07/17/2014 Depression 11/16/2013 Depressive disorder 11/16/2013 Chronic pancreatitis 11/21/2012 Assessment & Plan (05/17/2025 6:45 PM EDT): Mayra is doing well on current regiment of Buprenorphine 8-2 mg three times a day. She will continue current regimen and will follow up in 2 weeks. Assessment & Plan (05/07/2025 2:09 PM EDT): Mayra is doing well on current regiment of Buprenorphine 8-2 mg three times a day. During our visit, she had a radiant smile. She has increased mobility and is excited about her future. While she reports occasional nausea, she is otherwise doing well physically. She does have lingering thoughts about using oxycodone but is open to attending AA, which has been helpful in the past and she is open to counseling. She will continue current regimen and will follow up in 2 weeks. Assessment & Plan (04/16/2025 5:38 PM EDT): Mayra is a resilient and self-aware individual facing significant physical and emotional burdens. She is motivated to regain control over her life, which is a strong prognostic sign. She has agreed to transitioning from her current opioids to buprenorphine. Patient understands that she will continue taking xTampza until day 8 when she reaches buprenorphine 8 mg bid. Once she starts the buprenorphine microdosing, she will stop her short acting opioid. Pt was sent detailed written and pictorial instructions. She has comfort meds to use as needed and will call our Nurse, Domenica Montejo for support. Called patient's pharmacy to educate them on the medical plan with regards to the transition. Assessment & Plan (04/16/2025 4:49 PM EDT): Mayra has a history of chronic pancreatitis for which she has been taking long and short acting opioids. The pain has been controlled with the opioids but patient, who has a history or OUD, also expresses that she is addicted to the medication which is evidence by constant rumination about taking the medication, taking more than the prescribed amount, and wanting to get high . After an extensive conversation, I think she would be a good candidate to transition to buprenorphine which will address both her chronic pain and addiction to opioids. We discussed the risks and benefits of the medication and how to take the medication. Some benefits include: o Long-acting, partial agonist with lower overdose risk o May improve mood and pain perception o Can reduce cravings Patient may consider injectable sublocade if suboxone is helpful. Recommended against taking the medication with other opioids, alcohol, and benzodiazepines as this can cause respiratory depression. Will follow up with the patient for further planning of the transition. Shoulder pain 02/21/2010 Temporomandibular joint disorder 02/21/2010 TIA (transient ischemic attack) 02/21/2010 Tobacco dependence 02/26/2009 Chronic obstructive pulmonary disease 02/26/2009 Overview (01/24/2025): Considered immunosuppressed due to dx COPD 01/31/20 PCP Note: copd , stable , refilled ventolin , reviewed with pt to use symbicort as her maintenance inhaler twice Resolved Problems Problem Noted Date Diagnosed Date Resolved Date Tobacco use 09/18/2013 12/02/2017 Encounters Date Type Department Care Team Description 07/26/2025 4:37 PM EST - 07/26/2025 9:21 PM EST Emergency [facility] Emergency Department [address] [place] [id number] Yunier Javier MD Fall, initial encounter (Primary Dx) Discharge Disposition: Home or Self Care () 07/20/2025 Refill [facility] [address] [place] [id number] Apartment Manager: Qian Walters, Chronic pancreatitis, unspecified pancreatitis type 07/09/2025 Orders Only [address] [address] Apartment Manager: Nuzhat Medina MD Restless leg syndrome 07/09/2025 Orders Only [facility]- Road to [address] [address] Apartment Manager: Nuzhat Longoria MD Restless leg syndrome 07/09/2025 Telephone [facility] [address] [place] [phone] Apartment Manager: Nuzhat Hyde LPN 07/06/[address] [address] Apartment Manager: Nuzhat Medina MD Restless leg syndrome 07/03/2025 Refill [facility] [address] [place] [id number] Apartment Manager: Nuzhat Medina MD Restless leg syndrome 06/21/2025 Orders Only [facility] [address] [place] [phone] Apartment Manager: Qian Walters DO 06/19/2025 1:00 PM EDT Follow-Up [facility] [address] [place] [id number] Apartment Manager: Qian Walters DO Uncomplicated opioid dependence (Primary Dx); Chronic pancreatitis, unspecified pancreatitis type ; Chronic bronchitis with COPD (chronic obstructive pulmonary disease) ; Centrilobular emphysema ; Chronic shoulder pain, unspecified laterality; Vitamin D deficiency; Major depressive disorder, recurrent episode, moderate (HCC) from Last 3 Months Immunizations Immunization Administration Dates Next Due INFLUENZA, SPLIT VIRUS, TRIVALENT, PF 07/06/2016 Influenza, Injectable, Quadr ivalent, Preservative Free 07/06/2019,08/30/2017,08/12/2015 Family History Medical History Relation Name Comments Cancer Mother Heart disease Mother Relation Name Status Comments Father Mother Social History Tobacco Use Types Packs/Day Years Used Date Smoking Tobacco: Former Cigarettes 2 Q uit: 2017 Passive Smoke Exposure: Never Smokeless Tobacco: Never Comments:2017 Alcohol Use Standard Drinks/Week Comments Not Currently 0 (1 standard drink = 0.6 oz pur e alcohol) sober twenty years Hunger Vital Sign Answer Date Recorded Within the past 12 months, y ou worried that your food would run out before you got the money to buy more. Never true 06/01/20 25 Within the past 12 months, t he food you bought just didn't last and you didn't have money to get more. Never true 06/01/2025 Comments No Sex and Gender Information Value Date Recorded Sex Assigned at Female 04/08/2025 10:26 PM EDT Legal Sex Female 6:39 AM EDT Gender Identity Female 04/08/2025 10:26 PM EDT Sexual Orientation Choose not to disclose 2024 10:51 AM EDT Last Filed Vital Signs Vital Sign Reading Time Taken Comments Blood Pressure 125/91 07/26/2025 7:30 PM EST Pulse 76 07/26/2025 7:30 PM EST Temperature 36.8 C (98.2 F) 07/26/2025 4:51 PM EST Respiratory Rate 19 07/26/2025 7:30 PM EST Oxygen Saturation 90% 07/26/2025 7:30 PM EST Inhaled Oxygen Concentration - - Weight 55.3 kg (122 lb) 07/26/2025 5:07 PM EST Height 170.2 cm (5' 7 ) 06/19/2025 1:18 PM EDT Body Mass Index 19.11 06/19/2025 1:18 PM EDT Plan of Treatment Health Maintenance Due Date Last Done Comments Controlled Substance Agreement 1950 Hepatitis C Screening 1950 Medicare AWV 1951 Zoster Vaccines (1 of 2) 04/23/2009 02/26/2009 Colonoscopy 05/19/2024 05/19/2022, 02/2022, 04/04/2019, Additional history exists Depression Screening and Follow-Up 09/13/2024 Health Care Proxy Review 09/13/2024 Social Drivers of Health Annual Screening 09/13/2024 Influenza Vaccine (#1) 2025 , 07/06/2019, 08/30/2017, Additional history exists COVID-19 Vaccine ( - season) 2025 09/22/2021, 11/23/2020 Basic Metabolic Panel 07/26/2026 07/26/2025 , 07/06/2025, 04/09/2025, Additional history exists Fall Risk Screening 07/26/2026 07/26/2025 DTaP,Tdap,and Td Vaccines (3 - Td or Tdap) 04/03/2031 04/03/2021, 03/30/2011, 02/28/2008 Osteoporosis Screening Completed 08/03/2016 Mammogram Discontinued 05/04/2023, 04/13, 09/19/2020, Additional history exists Pneumococcal Vaccine: 50+ Years Completed 05/30/2024, 11/20/2016, 12/09/2015, Additional history exists RSV Vaccine (60+ years old and patients) Completed 12/14/2024 Alcohol/Substance Use Screening Completed 12/19/2024 CT Lung Cancer Screening (12 months, previous LungRADS 1 or 2) Discontinued 05/28/2025, 12/18/2024, 10/10/2024, Additional history exists Hepatitis B Vaccines Aged Out No long er eligible based on patient's age to complete this topic Procedures * Due to [place] state law, this organization might not be sharing negative HIV tests. Procedure Name Priority Date/Time Associated Diagnosis Comments ECG 12-LEAD Routine 07/26/2025 8:47 PM EST XR ELBOW 3+ VW RIGHT STAT 07/26/2025 8:25 PM EST XR HUMERUS RIGHT 2+ VW STAT 07/26/2025 8:25 PM EST XR SHOULDER 2+ VW RIGHT STAT 07/26/2025 8:25 PM EST XR HIP RIGHT 2+ VW W PELVIS STAT 07/26/2025 6:[address] CERVICAL SPINE WO CONTRAST STAT 07/26/2025 5:[address] HEAD WO CONTRAST STAT 07/26/2025 5 :59 PM EST ECG 12-LEAD STAT 07/26/2025 5:24 PM EST BASIC METABOLIC PANEL STAT 07/26/2025 5:20 PM EST CBC AUTO DIFFERENTIAL STAT 07/26/2025 5:20 PM EST DRUG MONITORING TEST COMMENTS Routine 06/19/2025 4:28 PM EDT Uncomplicated opioid dependence [facility], PANEL 8 [id number] Routine 06/19/2025 4:28 PM EDT Uncomplicated opioid dependence FENTANYL SCREEN W/CONFIRMATION, URINE - [id number] Routine 06/19/2025 4:28 PM EDT Uncomplicated opioid dependence METHADONE SCREEN W/CONFIRMATION, URINE Routine 06/19/2025 4:28 PM EDT Uncomplicated opioid dependence CT CHEST PULMONARY EMBOLISM W CONTRAST STAT 10/10/2024 3:40 PM EST COLONOSCOPY 05/19/2022 DEXA BONE DENSITY AXIAL Routine 08/03/2016 1:18 PM EST MICHEAL BILATERAL SCREENING DIGITAL MAMMOGRAM Routine 04/15/2010 7:08 PM EDT from Last 3 Months or Most Recently Relevant to Health Maintenance Results * Due to [place] state law, this organization might not be sharing negative HIV tests. * ECG 12 lead (07/26/2025 8:47 PM EST) Only the most recent of2 resultswithin the time period is included. Ventricular Rate EKG 61 BPM MUSE EKG Atrial Rate 61 BPM MUSE EKG IA Interval 204 ms MUSE EKG QRS Interval 88 ms MUSE EKG QT Interval 388 ms MUSE EKG QTC Interval 390 ms MUSE EKG P [place] 78 degrees MUSE EKG R [place] -13 degrees MUSE EKG T Wave [place] 39 degrees MUSE EKG 07/26/2025 8:47 PM EST 07/27/2025 7:33 PM EST Impressions MUSE EKG - 07/27/2025 7:33 PM EST Atrial-paced rhythm Minimal voltage criteria for LVH, may be normal variant ( [facility] product ) Nonspecific ST abnormality Abnormal ECG Confirmed by Rickey Oliver ([id number]) on 07/27/2025 7:33:17 PM Narrative Procedure Note Rickey Oliver, DO - 07/27/2025 IMPRESSION: Atrial-paced rhythm Minimal voltage criteria for LVH, may be normal variant ( [facility] product) Nonspecific ST abnormality Abnormal ECG Confirmed by Rickey Oliver ([id number]) on 07/27/2025 7:33:17 PM Assistant Surveyor Cb SALINAS ECG ORDERABLES Final Resu lt MUSE EKG * X-Ray Elbow Right 3+ Views (07/26/2025 8:25 PM EST) Anatomical Region Laterality Modality Upper Extremities, Elbow Right Compute d Radiography 07/26/2025 8:30 PM EST Impressions 07/26/2025 8:30 PM EST No acute fracture or dislocation. If this radiology report contains a blank impression section, it is an incomplete radiology report. Please contact the interpreting radiologist or applicable radiology division as soon as possible to obtain the completed interpretation. Workstation ID: [id number] Narrative 07/26/2025 8:30 PM EST COMPARISON: None. FINDINGS: Alignment is maintained without acute fracture or dislocation. There are no focal osseous lesions or normal soft tissue calcifications. Resulting Agency Comment [id number] Procedure Note Surjit Padilla MD - 07/26/2025 COMPARISON: None. FINDINGS: Alignment is maintained without acute fracture or dislocation. There areno focal osseous lesions or normal soft tissue calcifications. IMPRESSION: No acute fracture or dislocation. If this radiology report contains a blank impression section, it is anincomplete radiology report. Please contact the interpreting radiologistor applicable radiology division as soon as possible to obtain thecompleted interpretation. Workstation ID: [id number] Yunier Javier MD IMG XR PROCEDURES Final Resu lt * X-Ray Humerus Right 2+ VW (07/26/2025 8:25 PM EST) Anatomical Region Laterality Modality Upper Extremities, Humerus Right Compu fredi Radiography 07/26/2025 8:30 PM EST Impressions 07/26/2025 8:30 PM EST No acute fracture or dislocation. If this radiology report contains a blank impression section, it is an incomplete radiology report. Please contact the interpreting radiologist or applicable radiology division as soon as possible to obtain the completed interpretation. Workstation ID: [id number] Narrative 07/26/2025 8:30 PM EST COMPARISON: None. FINDINGS: The cortical margins of the humerus are intact without acute fracture or dislocation. The shoulder and elbow are intact. Resulting Agency Comment [id number] Procedure Note Surjit Padilla MD - 07/26/2025 COMPARISON: None. FINDINGS: The cortical margins of the humerus are intact without acute fracture ordislocation. The shoulder and elbow are intact. IMPRESSION: No acute fracture or dislocation. If this radiology report contains a blank impression section, it is anincomplete radiology report. Please contact the interpreting radiologistor applicable radiology division as soon as possible to obtain thecompleted interpretation. Workstation ID: [id number] us Yunier Javier MD IMG XR PROCEDURES Final Resu lt * X-Ray Shoulder Right 2+ Views (07/26/2025 8:25 PM EST) Anatomical Region Laterality Modality Upper Extremities, Shoulder Right Comp uted Radiography 07/26/2025 8:30 PM EST Impressions 07/26/2025 8:30 PM EST No acute traumatic injury to the right shoulder. If this radiology report contains a blank impression section, it is an incomplete radiology report. Please contact the interpreting radiologist or applicable radiology division as soon as possible to obtain the completed interpretation. Workstation ID: [id number] Narrative 07/26/2025 8:30 PM EST COMPARISON: None. FINDINGS: The right shoulder prosthesis is intact. The acromioclavicular joint is normal. There are no focal bony lesions or abnormal soft tissue calcifications. Resulting Agency Comment [id number] Procedure Note Surjit Padilla MD - 07/26/2025 COMPARISON: None. FINDINGS: The right shoulder prosthesis is intact. The acromioclavicular joint isnormal. There are no focal bony lesions or abnormal soft tissuecalcifications. IMPRESSION: No acute traumatic injury to the right shoulder. If this radiology report contains a blank impression section, it is anincomplete radiology report. Please contact the interpreting radiologistor applicable radiology division as soon as possible to obtain thecompleted interpretation. Workstation ID: [id number] us Yunier Javier MD IMG XR PROCEDURES Final Resu lt * XR Hip Right 2+ vw W Pelvis (07/26/2025 6:15 PM EST) Anatomical Region Laterality Modality Body, Pelvis, Hip Right Computed Radio graphy 07/26/2025 7:08 PM EST Impressions 07/26/2025 7:09 PM EST No acute fracture or dislocation. If this radiology report contains a blank impression section, it is an incomplete radiology report. Please contact the interpreting radiologist or applicable radiology division as soon as possible to obtain the completed interpretation. Workstation ID: [id number] Narrative 07/26/2025 7:09 PM EST COMPARISON: None FINDINGS: No acute fracture or dislocation of the right hip. The femoral head is seated in the acetabulum. The joint space is maintained. The bony pelvis is intact. The pubic symphysis and sacroiliac joints are congruent. A bone island is noted in the right ischium. Resulting Agency Comment [id number] Procedure Note Elo Giordano MD - 07/26/2025 COMPARISON: None FINDINGS: No acute fracture or dislocation of the right hip. The femoral head isseated in the acetabulum. The joint space is maintained. The bony pelvisis intact. The pubic symphysis and sacroiliac joints are congruent. A boneisland is noted in the right ischium. IMPRESSION: No acute fracture or dislocation. If this radiology report contains a blank impression section, it is anincomplete radiology report. Please contact the interpreting radiologistor applicable radiology division as soon as possible to obtain thecompleted interpretation. Workstation ID: [id number] Yunier Javier MD IMG XR PROCEDURES Final Resu lt * CT Cervical Spine WO Contrast (07/26/2025 5:59 PM EST) Anatomical Region Laterality Modality Spine, C-spine Computed Tomogra phy 07/26/2025 6:14 PM EST Impressions 07/26/2025 7:12 PM EST 1. No acute intracranial abnormality. Large soft tissue hematoma in the right parieto-occipital region. No underlying calvarial fracture. 2. No acute fracture or traumatic malalignment of the cervical spine. 3. 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 IJeferson, have reviewed the examination and concur with the findings as reported or so edited. Trainee: Vika Valdez If this radiology report contains a blank impression section, it is an incomplete radiology report. Please contact the interpreting radiologist or applicable radiology division as soon as possible to obtain the completed interpretation. Workstation ID: [id number] Up-to-date CT equipment and radiation dose reduction techniques were employed. CTDIvol: 33.2 - 49.6 mGy. DLP: 1656 mGy-cm. Narrative 07/26/2025 7:12 PM EST EXAMINATION: CT of head and cervical spine without contrast TECHNIQUE: CT of the head and cervical spine performed without intravenous contrast. Multiplanar reformats created. 3D volume-rendered reconstructions were generated for the head at the acquisition workstation. CLINICAL INFORMATION: Head trauma, minor (Age >= 65y) - head laceration, fall COMPARISON: None. FINDINGS: HEAD: No acute intracranial hemorrhage or shift of midline structures present. Patchy ill-defined white matter hypodensities, most compatible with moderate chronic small vessel ischemic disease. The lawrence-white differentiation is preserved. Mild diffuse brain parenchymal volume loss. No hydrocephalus, no extra-axial fluid collection. The paranasal sinuses and mastoid air cells are normally aerated. Both globes are symmetric and intact, status post bilateral lens replacement. Large soft tissue hematoma in the right parieto-occipital region. The calvarium is intact. CERVICAL SPINE: Diffuse demineralization of the bony structures. There is reversal of cervical lordosis. There is no acute fracture or traumatic malalignment. Chronic compression fracture of the T1 vertebral body. The height of the cervical vertebral bodies are grossly maintained. Multilevel degenerative changes with endplate irregularities, intervertebral space narrowing, osteophyte formation and facet joint arthropathy. There is no high- grade spinal canal stenosis or neuroforaminal stenosis. The occipital condyles are intact. Atlantodental interval is maintained. The soft tissues of the neck are unremarkable. A 4 mm calcified nodule in the right thyroid lobe. The included lung apices show biapical scarring and centrilobular emphysematous changes. Resulting Agency Comment [id number] Procedure Note Jeferson Braswell MD - 07/26/2025 EXAMINATION: CT of head and cervical spine without contrast TECHNIQUE: CT of the head and cervical spine performed without intravenous contrast.Multiplanar reformats created. 3D volume-rendered reconstructions weregenerated for the head at the acquisition workstation. CLINICAL INFORMATION: Head trauma, minor (Age >= 65y) - head laceration, fall COMPARISON: None. FINDINGS: HEAD: No acute intracranial hemorrhage or shift of midline structures present. Patchy ill-defined white matter hypodensities, most compatible withmoderate chronic small vessel ischemic disease. The lawrence-whitedifferentiation is preserved. Mild diffuse brain parenchymal volume loss. No hydrocephalus, noextra-axial fluid collection. The paranasal sinuses and mastoid air cells are normally aerated. Bothglobes are symmetric and intact, status post bilateral lens replacement. Large soft tissue hematoma in the right parieto-occipital region. Thecalvarium is intact. CERVICAL SPINE: Diffuse demineralization of the bony structures. There is reversal ofcervical lordosis. There is no acute fracture or traumatic malalignment. Chronic compressionfracture of the T1 vertebral body. The height of the cervical vertebralbodies are grossly maintained. Multilevel degenerative changes with endplate irregularities,intervertebral space narrowing, osteophyte formation and facet jointarthropathy. There is no high- grade spinal canal stenosis orneuroforaminal stenosis. The occipital condyles are intact. Atlantodental interval is maintained. The soft tissues of the neck are unremarkable. A 4 mm calcified nodule inthe right thyroid lobe. The included lung apices show biapical scarring and centrilobularemphysematous changes. IMPRESSION: 1. No acute intracranial abnormality. Large soft tissue hematoma in theright parieto-occipital region. No underlying calvarial fracture. 2. No acute fracture or traumatic malalignment of the cervical spine. 3. Reversed lordotic curvature of the cervical spine, with chroniccompression deformity of T1 vertebral body and multilevel degenerativechanges, as described above. IJeferson, have reviewed the examination and concur with thefindings as reported or so edited. Trainee: Vika Valdez If this radiology report contains a blank impression section, it is anincomplete radiology report. Please contact the interpreting radiologistor applicable radiology division as soon as possible to obtain thecompleted interpretation. Workstation ID: [id number] Up-to-date CT equipment and radiation dose reduction techniques wereemployed. CTDIvol: 33.2 - 49.6 mGy. DLP: 1656 mGy-cm. August Chow MD IM CT PROCEDURES Aysha l Result * CT Head WO Contrast (07/26/2025 5:59 PM EST) Anatomical Region Laterality Modality Head and Neck Computed Tomogra phy 07/26/2025 7:01 PM EST Impressions 07/26/2025 7:12 PM EST 1. No acute intracranial abnormality. Large soft tissue hematoma in the right parieto-occipital region. No underlying calvarial fracture. 2. No acute fracture or traumatic malalignment of the cervical spine. 3. 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 IJeferson, have reviewed the examination and concur with the findings as reported or so edited. Trainee: Vika Valdez If this radiology report contains a blank impression section, it is an incomplete radiology report. Please contact the interpreting radiologist or applicable radiology division as soon as possible to obtain the completed interpretation. Workstation ID: [id number] Up-to-date CT equipment and radiation dose reduction techniques were employed. CTDIvol: 33.2 - 49.6 mGy. DLP: 1656 mGy-cm. Narrative 07/26/2025 7:12 PM EST EXAMINATION: CT of head and cervical spine without contrast TECHNIQUE: CT of the head and cervical spine performed without intravenous contrast. Multiplanar reformats created. 3D volume-rendered reconstructions were generated for the head at the acquisition workstation. CLINICAL INFORMATION: Head trauma, minor (Age >= 65y) - head laceration, fall COMPARISON: None. FINDINGS: HEAD: No acute intracranial hemorrhage or shift of midline structures present. Patchy ill-defined white matter hypodensities, most compatible with moderate chronic small vessel ischemic disease. The lawrence-white differentiation is preserved. Mild diffuse brain parenchymal volume loss. No hydrocephalus, no extra-axial fluid collection. The paranasal sinuses and mastoid air cells are normally aerated. Both globes are symmetric and intact, status post bilateral lens replacement. Large soft tissue hematoma in the right parieto-occipital region. The calvarium is intact. CERVICAL SPINE: Diffuse demineralization of the bony structures. There is reversal of cervical lordosis. There is no acute fracture or traumatic malalignment. Chronic compression fracture of the T1 vertebral body. The height of the cervical vertebral bodies are grossly maintained. Multilevel degenerative changes with endplate irregularities, intervertebral space narrowing, osteophyte formation and facet joint arthropathy. There is no high- grade spinal canal stenosis or neuroforaminal stenosis. The occipital condyles are intact. Atlantodental interval is maintained. The soft tissues of the neck are unremarkable. A 4 mm calcified nodule in the right thyroid lobe. The included lung apices show biapical scarring and centrilobular emphysematous changes. Resulting Agency Comment [id number] Procedure Note Jeferson Braswell MD - 07/26/2025 EXAMINATION: CT of head and cervical spine without contrast TECHNIQUE: CT of the head and cervical spine performed without intravenous contrast.Multiplanar reformats created. 3D volume-rendered reconstructions weregenerated for the head at the acquisition workstation. CLINICAL INFORMATION: Head trauma, minor (Age >= 65y) - head laceration, fall COMPARISON: None. FINDINGS: HEAD: No acute intracranial hemorrhage or shift of midline structures present. Patchy ill-defined white matter hypodensities, most compatible withmoderate chronic small vessel ischemic disease. The lawrence-whitedifferentiation is preserved. Mild diffuse brain parenchymal volume loss. No hydrocephalus, noextra-axial fluid collection. The paranasal sinuses and mastoid air cells are normally aerated. Bothglobes are symmetric and intact, status post bilateral lens replacement. Large soft tissue hematoma in the right parieto-occipital region. Thecalvarium is intact. CERVICAL SPINE: Diffuse demineralization of the bony structures. There is reversal ofcervical lordosis. There is no acute fracture or traumatic malalignment. Chronic compressionfracture of the T1 vertebral body. The height of the cervical vertebralbodies are grossly maintained. Multilevel degenerative changes with endplate irregularities,intervertebral space narrowing, osteophyte formation and facet jointarthropathy. There is no high- grade spinal canal stenosis orneuroforaminal stenosis. The occipital condyles are intact. Atlantodental interval is maintained. The soft tissues of the neck are unremarkable. A 4 mm calcified nodule inthe right thyroid lobe. The included lung apices show biapical scarring and centrilobularemphysematous changes. IMPRESSION: 1. No acute intracranial abnormality. Large soft tissue hematoma in theright parieto-occipital region. No underlying calvarial fracture. 2. No acute fracture or traumatic malalignment of the cervical spine. 3. Reversed lordotic curvature of the cervical spine, with chroniccompression deformity of T1 vertebral body and multilevel degenerativechanges, as described above. IJeferson, have reviewed the examination and concur with thefindings as reported or so edited. Trainee: Vika Valdez If this radiology report contains a blank impression section, it is anincomplete radiology report. Please contact the interpreting radiologistor applicable radiology division as soon as possible to obtain thecompleted interpretation. Workstation ID: [id number] Up-to-date CT equipment and radiation dose reduction techniques wereemployed. CTDIvol: 33.2 - 49.6 mGy. DLP: 1656 mGy-cm. August Chow MD IM CT PROCEDURES Aysha l Result * (ABNORMAL) CBC Auto Differential (07/26/2025 5:20 PM EST) WBC 4.6 3.8 - 10.8 10*3/uL 07/26/2025 5:26 PM EST [facility] RBC 3.79(L) 3.80 - 5.10 10*6/uL 07/26/2025 5:26 PM EST [facility] Hemoglobin 10.8(L) 11.7 - 15.5 g/dL 07/26/2025 5:26 PM EST [facility] Hematocrit 33.8(L) 35.0 - 45.0 % 07/26/2025 5:26 PM EST [facility] MCV 89.2 80.0 - 100.0 fL 07/26/2025 5:26 PM EST [facility] MCH 28.5 27.0 - 33.0 pg 07/26/2025 5:26 PM EST [facility] MCHC 32.0 32.0 - 36.0 g/dL 07/26/2025 5:26 PM EST [facility] RDW 14.6 11.0 - 15.0 % 07/26/2025 5:26 PM EST [facility] Platelets 217 140 - 400 10*3/uL 07/26/2025 5:26 PM EST [facility] MPV 8.8 7.5 - 12.5 fL 07/26/2025 5:26 PM EST [facility] Neutrophil % 70.9 % 07/26/2025 5:26 PM EST [facility] Immature Grans % 0.4 0.0 - 0.9 % 07/26/2025 5:26 PM EST [facility] Lymphocyte % 17.7 % 07/26/2025 5:26 PM EST [facility] Monocyte % 9.7 % 07/26/2025 5:26 PM EST [facility] Eosinophil % 0.9 % 07/26/2025 5:26 PM EST [facility] Basophil % 0.4 % 07/26/2025 5:26 PM EST [facility] Neutrophil # 3.28 1.50 - 7.80 10*3/uL 07/26/2025 5:26 PM EST [facility] Immature Grans # <0.03 <=0.03 10*3/uL 07/26/2025 5:26 PM EST [facility] Lymphocyte # 0.80(L) 0.85 - 3.90 10*3/uL 07/26/2025 5:26 PM EST [facility] Monocyte # 0.50 0.20 - 0.95 10*3/uL 07/26/2025 5:26 PM EST [facility] Eosinophil # <0.03 0.02 - 0.50 10*3/uL 07/26/2025 5:26 PM EST [facility] Basophil # <0.03 0.00 - 0.20 10*3/uL 07/26/2025 5:26 PM EST [facility] nRBC % 0.0 /100 WBCs 07/26/2025 5:26 PM EST [facility] nRBC # <0.01 <0.01 10*3/uL 07/26/2025 5:26 PM EST [facility] Blood Structure of peripheral vein / Unknown Venipuncture / Unknown 07/26/2025 5:20 PM EST 07/26/2025 5:23 PM EST us Yunier Javier MD LAB BLOOD ORDERABLES Final R esult [facility] [address] [place] [address], * (ABNORMAL) Basic Metabolic Panel (07/26/2025 5:20 PM EST) NA 135 135 - 145 mmol/L 07/26/2025 5:48 PM EST [facility] K 4.2 3.5 - 5.3 mmol/L 07/26/2025 5:48 PM EST [facility] Cl 102 97 - 110 mmol/L 07/26/2025 5:48 PM EST [facility] CO2 26 22 - 32 mmol/L 07/26/2025 5:48 PM EST [facility] BUN 24(H) 7 - 23 mg/dL 07/26/2025 5:48 PM EST [facility] Creatinine 0.56 0.50 - 1.20 mg/dL 07/26/2025 5:48 PM EST [facility] Glucose 95 65 - 99 mg/dL 07/26/2025 5:48 PM EST [facility] Calcium 8.2(L) 8.6 - 10.5 mg/dL 07/26/2025 5:48 PM EST [facility] Anion Gap 7 5 - 15 07/26/2025 5:48 PM EST [facility] eGFR >90 >=60 mL/min/1. 73m2 07/26/2025 5:48 PM EST [facility] Comment:The estimated glomer ular filtration rate (eGFR) is calculated using a new formula developed by the NKF-ASN task force to eliminate race-based correction factors. The new formula uses serum/plasma creatinine, age, and gender to determine eGFR. A value below 60mls/min might indicate kidney disease and will be flagged. For additional information, see Vann et al, Am J Kidney Dis. 2021;79(2):268- 288, A Unifying Approach for GFR estimation: Recommendations of the NKF-ASN Task Force on Reassessing the Inclusion of Race in Diagnosing Kidney Disease . Blood Structure of peripheral vein / Unknown Venipuncture / Unknown 07/26/2025 5:20 PM EST 07/26/2025 5:23 PM EST us Yunier Javier MD LAB BLOOD ORDERABLES Final R esult [facility] [address] [place] [address], * Drug Monitoring Test Comments (06/19/2025 4:28 PM EDT) Notes and Comments See Comments 06/23/2025 10:06 AM EDT [facility] Comment: This drug testing is for medical treatment only. Analysis was performed as non-forensic testing and these results should be used only by healthcare providers to render diagnosis or treatment, or to monitor progress of medical conditions. Benzodiazepines Notes: Lorazepam detected is consistent with the use of the drug Lorazepam. Buprenorphine Notes: Buprenorphine, Norbuprenorphine detected is consistent with the use of the drug(s) Buprenorphine or Buprenorphine with Naloxone. Naloxone may be negative due to poor oral bioavailability and/or short half-life. Buprenorphine, Norbuprenorphine, Naloxone detected is consistent with the use of the drug Buprenorphine and Naloxone. LDT Notes: Confirmation tests were developed and their analytical performance characteristics have been determined by [facility]. It has not been cleared or approved by the FDA. This assay has been validated pursuant to the CLIA regulations and is used for clinical purposes. Healthcare Providers needing Interpretation assistance, please contact us at [phone] ( ) M-F, 8am to 10pm EST Urine Voided urine specimen / Unknown Non-Blood Collection / Unknown 06/19/2025 4:28 PM EDT 06/19/2025 4:28 PM EDT Edwin GUALLPA SUSAN - 06/23/2025 10:06 AM EDT [facility] Received Date: us Qian Loomis DO LAB URINE ORDERABLES Final Re sult [facility] [address] [facility] [address], [place] [address], [place] [phone] [employer] [facility] [address] [facility] [address], [place] [address], [place] [phone] * (ABNORMAL) Drug Tox Monitoring Panel 8 w/Reflex to Confirm, Urine (Includes Alcohol, Amphetamine, Benzodiazepines, Buprenorphine, Cocaine, Heroin, Marijuana, MDMA (Ecstasy), Opiates (Morphine & Codeine), Oxycodone) (06/19/2025 4:28 PM EDT) Ethyl Alcohol Metabolites, Urine NEGATIVE <500 ng/mL 06/23/2025 10:06 AM [facility] Amphetamine Screen, Urine NEGATIVE <500 ng/mL 06/23/2025 10:06 AM [facility] Benzodiazepines Screen, Urine POSITIVE(A) <100 ng/mL 06/23/2025 10:06 AM [facility] Alphahydroxyalpraz olam, Urine NEGATIVE <25 ng/mL 06/23/2025 10:06 AM [facility] Alphahydroxymidazo figueroa, Urine NEGATIVE <50 ng/mL 06/23/2025 10:06 AM [facility] Alphahydroxytriazo figueroa, Urine NEGATIVE <50 ng/mL 06/23/2025 10:06 AM [facility] Aminoclonazepam, Urine NEGATIVE <25 ng/mL 06/23/2025 10:06 AM [facility] Hydroxyethylfluraz epam, Urine NEGATIVE <50 ng/mL 06/23/2025 10:06 AM [facility] Lorazepam, Urine 449(H) <50 ng/mL 06/23/2025 10:06 AM [facility] Nordiazepam, Urine NEGATIVE <50 ng/mL 06/23/2025 10:06 AM [facility] Oxazepam, Urine NEGATIVE <50 ng/mL 06/23/2025 10:06 AM [facility] Temazepam, Urine NEGATIVE <50 ng/mL 06/23/2025 10:06 AM [facility] Benzodiazepines Comments See Comments 06/23/2025 10:06 AM [facility] Comment: See Benzodiazepines Notes, LDT Notes Buprenorphine Screen, Urine POSITIVE(A) <5 ng/mL 06/23/2025 10:06 AM [facility] Buprenorphine, Urine 795(H) <2 ng/mL 06/23/2025 10:06 AM [facility] Norbuprenorphine, Urine 1638(H) <2 ng/mL 06/23/2025 10:06 AM [facility] Naloxone, Urine >2000(H) <2 ng/mL 10:06 AM EDT [employer] [facility] Buprenorphine Comments See Comments 06/23/2025 10:06 AM EDT [employer] [facility] Comment: See Buprenorphine Notes, LDT Notes Cocaine Metabolite Screen, Urine NEGATIVE <150 ng/mL 06/23/2025 10:06 AM EDT [employer] [facility] Heroin Metabolite Screen, Urine NEGATIVE <10 ng/mL 06/23/2025 10:06 AM EDT [employer] [facility] Marijuana Metabolite Screen, Urine NEGATIVE <20 ng/mL 06/23/2025 10:06 AM EDT [employer] [facility] MDMA/MDA Screen, Urine NEGATIVE <500 ng/mL 06/23/2025 10:06 AM EDT [employer] [facility] Opiate Screen, Urine NEGATIVE <100 ng/mL 06/23/2025 10:06 AM EDT [employer] [facility] Oxycodone Screen, Urine NEGATIVE <100 ng/mL 06/23/2025 10:06 AM EDT [employer] [facility] Creatinine, Specimen Validity 193.5 > or = 20.0 mg/dL 06/23/2025 10:06 AM EDT [employer] [facility] pH, Specimen Validity 5.6 4.5 - 9.0 06/23/2025 10:06 AM EDT [employer] [facility] Oxidant, Specimen Validity NEGATIVE <200 mcg/mL 06/23/2025 10:06 AM [facility] Urine Voided urine specimen / Unknown Non-Blood Collection / Unknown 06/19/2025 4:28 PM EDT 06/19/2025 4:28 PM EDT Narrative [facility] - 06/23/2025 10:06 AM EDT [employer] Received Date: us Qian Loomis DO LAB URINE ORDERABLES Final Re sult SALONI DONGOLA [address] [facility] [address], [place] [address], [place] [phone] [facility] [address] [facility] [address], [place] [address], [place] [phone] * Methadone Screen w/Confirmation, Urine (06/19/2025 4:28 PM EDT) Methadone Metabolite Screen, Urine NEGATIVE <100 ng/mL 06/21/2025 11:39 AM EDT [employer] Comment: See Note 1 Note 1 This drug testing is for medical treatment only. Analysis was performed as non-forensic testing and these results should be used only by healthcare providers to render diagnosis or treatment, or to monitor progress of medical conditions. For assistance with interpreting these drug results, please contact a [facility] Toxicology Specialist: [phone] ( ), M-F, 8am-6pm EST. Urine Voided urine specimen / Unknown Non-Blood Collection / Unknown 06/19/2025 4:28 PM EDT 06/19/2025 4:28 PM EDT Edwin [facility] - 06/21/2025 11:39 AM EDT [facility] Received Date: Qian Loomis DO LAB URINE ORDERABLES Final Re sult [employer] [place] [address] [facility] [address] [facility], [place] [address], [place] [phone] [facility] [address], [place] [address], [place] [phone] * Fentanyl Screen w/Confirmation, Urine (06/19/2025 4:28 PM EDT) Fentanyl Screen, Urine NEGATIVE <0.5 ng/mL 06/23/2025 10:06 AM EDT [facility] Urine Voided urine specimen / Unknown Non-Blood Collection / Unknown 06/19/2025 4:28 PM EDT 06/19/2025 4:28 PM EDT Edwin [facility] [employer] [facility] - 06/23/2025 10:06 AM EDT [facility] Received Date:[id number] us Qian Loomis DO LAB URINE ORDERABLES Final Re sult [facility] [address], [address] [place] [address], [place] [phone] [employer] [facility] [address], [address] [place] [address], [place] [phone] * CT Chest Pulmonary Embolism W Contrast (10/10/2024 3:40 PM EST) Anatomical Region Laterality Modality Body Computed Tomogra phy 10/10/2024 4:43 PM EST Impressions 10/10/2024 5:03 PM EST 1. No evidence of pulmonary embolism 2. Groundglass opacities in bilateral upper lungs could suggest atypical infection or pulmonary edema. 3. Moderate emphysema I, Natalie Rust, have reviewed the examination and concur with the findings as reported or so edited. Trainee: Dionicio Guevara If this radiology report contains a blank impression section, it is an incomplete radiology report. Please contact the interpreting radiologist or applicable radiology division as soon as possible to obtain the completed interpretation. Workstation ID: [id number] Up-to-date CT equipment and radiation dose reduction techniques were employed. CTDIvol: 9.2 - 10.7 mGy. DLP: 296 mGy-cm. Narrative 10/10/2024 5:03 PM EST COMPARISON: Prior x-rays from 10/10/2024 and 09/15/2024 FINDINGS: Pulmonary arteries: The pulmonary arteries are normal in caliber without intraluminal filling defects to indicate pulmonary embolism. Lower neck: Unremarkable. Lungs and Airways: The central airways are patent. Moderate centrilobular emphysema. There are peripheral groundglass opacities in both upper lungs. Scattered micronodules with the largest being a 3 mm nodule in the right lower lung (series 906, image 169). Pleura: There is no pleural effusion or pneumothorax. Heart and Mediastinum: Dilated left atrium. Left-sided dual-lead pacemaker. The RV:LV ratio is less than 1. There is no flattening or leftward bowing of the interventricular septum. There is no pericardial effusion. Ascending aorta measures up to 4.3 cm. The thoracic aorta is otherwise normal in caliber. Patulous esophagus. Lymph Nodes: There is no hilar, mediastinal, or axillary lymphadenopathy. Bones and Soft Tissues: Diffuse osteopenia. Multilevel mild degenerative changes in the visualized spine. No acute osseous abnormality. Upper Abdomen: Unremarkable. Resulting Agency Comment [id number] Procedure Note Natalie Rust MD - 10/10/2024 COMPARISON: Prior x-rays from 10/10/2024 and 09/15/2024 FINDINGS: Pulmonary arteries: The pulmonary arteries are normal in caliber withoutintraluminal filling defects to indicate pulmonary embolism. Lower neck: Unremarkable. Lungs and Airways: The central airways are patent. Moderate centrilobularemphysema. There are peripheral groundglass opacities in both upper lungs.Scattered micronodules with the largest being a 3 mm nodule in the rightlower lung (series 906, image 169). Pleura: There is no pleural effusion or pneumothorax. Heart and Mediastinum: Dilated left atrium. Left-sided dual-leadpacemaker. The RV:LV ratio is less than 1. There is no flattening orleftward bowing of the interventricular septum. There is no pericardialeffusion. Ascending aorta measures up to 4.3 cm. The thoracic aorta isotherwise normal in caliber. Patulous esophagus. Lymph Nodes: There is no hilar, mediastinal, or axillary lymphadenopathy. Bones and Soft Tissues: Diffuse osteopenia. Multilevel mild degenerativechanges in the visualized spine. No acute osseous abnormality. Upper Abdomen: Unremarkable. IMPRESSION: 1. No evidence of pulmonary embolism 2. Groundglass opacities in bilateral upper lungs could suggest atypicalinfection or pulmonary edema. 3. Moderate emphysema Natalie Roy, have reviewed the examination and concur with thefindings as reported or so edited. Trainee: Dionicio Guevara If this radiology report contains a blank impression section, it is anincomplete radiology report. Please contact the interpreting radiologistor applicable radiology division as soon as possible to obtain thecompleted interpretation. Workstation ID: [id number] Up-to-date CT equipment and radiation dose reduction techniques wereemployed. CTDIvol: 9.2 - 10.7 mGy. DLP: 296 mGy-cm. us Raquel Hernandez MD IMG CT PROCEDURES Final Resul t * COLONOSCOPY (05/19/2022) Narrative Procedure Note Shawn Villa MD - 05/19/2022 10:35 AM EDT [facility] Gastroenterology Patient Name: Mayra Craft Procedure Date: 05/19/2022 10:35 AM Date of : 1950 Admit Type: Outpatient Age: 71 Room: [place] [address] Gender: Female Note Status: Finalized Attending MD: Shawn Villa MD Procedure: Colonoscopy Indications: High risk colon cancer surveillance: Personal history of non-advanced adenoma, Last colonoscopy: March 2019 Providers: Shawn Villa MD Referring MD: Vanessa Culver MD (Referring MD) Requesting Provider: Medicines: Propofol total dose 200 mg IV Complications: No immediate complications. Procedure: After I obtained informed consent, the scope was passed under direct vision. Throughout the procedure, the patient's blood pressure, pulse, and oxygen saturations were monitored continuously. The [facility]- [id number] # [id number] colonoscope was introduced through the anus andadvanced to the cecum, identified by appendiceal orifice and ileocecal valve. The colonoscopy was performed without difficulty. The patient tolerated the procedure well.The quality of the bowel preparation was good. Findings: The perianal and digital rectal examinations were normal. A 5 mm polyp was found in the ascending colon. The polyp was sessile. The polyp was removed with a cold snare. Resection and retrieval were complete. Estimated blood loss was minimal. A few small-mouthed diverticula were found in the sigmoid colon and descending colon. Non-bleeding internal hemorrhoids were found during retroflexion. The hemorrhoids were small. The colon (entire examined portion) was tortuous. Impression: - One 5 mm polyp in the ascending colon, removed with a cold snare. Resected and retrieved. - Diverticulosis in the sigmoid colon and in the descending colon. - Non-bleeding internal hemorrhoids. - Tortuous colon. Recommendation: - [facility] The signs and symptoms of potential delayedcomplications were discussed with the patient. Return to normal activities tomorrow. Written discharge instructionswere provided to the patient. - Use fiber, for example Citrucel, Fibercon, Konsyl or Metamucil. - Repeat colonoscopy in 5 years for surveillance. - Return to GI office PRN. Shawn Villa MD 05/19/2022 11:09:36 AM This report has been signed electronically. Number of Addenda: 0 Note Initiated On: 05/19/2022 10:35 AM us Shawn Villa MD PROVATION PROCEDURES Final Result * DEXA Bone Density (08/03/2016 1:18 PM EST) Anatomical Region Laterality Modality Wrist, Hip, L-spine Radiographic Imaging 08/03/2016 12:3 0 PM EST Narrative 08/03/2016 2:10 PM EST EXAM: BONE MINERAL DENSITY INDICATION: 65 year old post-menopausal female with estrogen deficiency and chronic pancreatitis. PROCEDURE: The bone mineral density (BMD) of the spine and proximal right femur was determined using an external X-ray source [employer] In[employer]. COMPARISON: Iqm-ix-weifzj prior studies cannot be compared via BMD and thus % change. Approximate comparisons can be made based on T values. FINDINGS: L1-L4: BMD 0.715 gm/cm2 T-Score -3.0 Z-score: -1.1 Femoral neck: BMD 0.589 gm/cm2 T-Score -2.3 Z-score -0.7 Total hip: BMD 0.566 gm/cm2 T-Score -3.1 Z-score -1.7 The World Health Organization (WHO) defines osteoporosis (as studied in post-menopausal women) as a T value of (-)2.5 or less at any site. Osteopenia is defined by a T value between (-)1.0 and (-)2.4. In general, it is recommended that patients receive approximately 1000 mg of calcium daily, either from dairy products or supplements (including multiple vitamin). Patients should consider supplementing with vitamin D. Vitamin D recommendations should be discussed with Health Care Provider and measurement of vitamin D levels should be considered. Careful weight-bearing exercise is also useful in maintaining bone mass and to help protect against falls. CONCLUSION: This patient has osteoporosis. Thank you for the courtesy of this referral. Los Alexis MD, PhD WSN: [id number] Procedure Note Los Alexis. - 05/12/2017 EXAM: BONE MINERAL DENSITY INDICATION: 65 year old post-menopausal female with estrogen deficiency and chronic pancreatitis. PROCEDURE: The bone mineral density (BMD) of the spine and proximal right femur was determined using an external X-ray source Hologic. COMPARISON: Ocz-px-[id number] prior studies cannot be compared via BMD and thus % change. Approximate comparisons can be made based on T values. FINDINGS: L1-L4: BMD 0.715 gm/cm2 T-Score -3.0 Z-score: -1.1 Femoral neck: BMD 0.589 gm/cm2 T-Score -2.3 Z-score -0.7 Total hip: BMD 0.566 gm/cm2 T-Score -3.1 Z-score -1.7 The World Health Organization (WHO) defines osteoporosis (as studied in post-menopausal women) as a T value of (-)2.5 or less at any site. Osteopenia is defined by a T value between (-)1.0 and (-)2.4. In general, it is recommended that patients receive approximately 1000 mg of calcium daily, either from dairy products or supplements (including multiple vitamin). Patients should consider supplementing with vitamin D. Vitamin D recommendations should be discussed with Health Care Provider and measurement of vitamin D levels should be considered. Careful weight-bearing exercise is also useful in maintaining bone mass and to help protect against falls. CONCLUSION: This patient has osteoporosis. Thank you for the courtesy of this referral. Los Alexis MD, PhD WSN: [id number] us Qian Loomis DO IMG DXA PROCEDURES Final Resu lt * MICHEAL Bilateral Screening Digital Mammogram (04/15/2010 7:08 PM EDT) Anatomical Region Laterality Modality Breast Bilateral Mammography 04/15/2010 6:40 PM EDT Impressions 04/23/2010 2:42 PM EDT IMPRESSION: No evidence of malignancy. BIRADS ASSESSMENT CATEGORY 1: Negative. Recommend yearly screening mammography. Narrative 04/23/2010 2:42 PM EDT BASELINE DIGITAL MAMMOGRAM WITH CAD - A second reading of the digital mammogram has been performed with a system for computer-aided detection (R2). The patient presents for baseline screening. Bilateral CC and MLO views demonstrate moderate breast tissue density. There are no dominant masses or suspicious clustered microcalcifications. Procedure Note Steve Torrez MD - 05/14/2017 BASELINE DIGITAL MAMMOGRAM WITH CAD - A second reading of the digital mammogram has been performed with a system for computer-aided detection (R2). The patient presents for baseline screening. Bilateral CC and MLO views demonstrate moderate breast tissue density. There are no dominant masses or suspicious clustered microcalcifications. IMPRESSION: IMPRESSION: No evidence of malignancy. BIRADS ASSESSMENT CATEGORY 1: Negative. Recommend yearly screening mammography. us Vanessa Culver MD IMG BI PROCEDURES Final Result from Last 3 Months or Most Recently Relevant to Health Maintenance Insurance MEDICARE Member Subscriber Plan / Payer (Ef fective 2013-Present) Name:Mayra Craft Member ID:[id number] Relation to Subscriber:Self Name:Mayra Craft Subscriber ID:[id number] Payer ID:[id number] Group ID:Not on file Type:Not on file Address: [address] MEDICARE Member Subscriber Plan / Payer (Ef fective 2013-Present) Name:Mayra Craft Member ID:[id number] Relation to Subscriber:Self Name:Mayra Craft Subscriber ID:[id number] Payer ID:[id number] Group ID:Not on file Type:Not on file Address: [address] Advance Directives * Presumed Full Code (Latest Code Status on File) Date Activated Date Inactivated Comments 06/01/2025 2:06 PM 06/01/2025 5:19 PM * Presumed Full Code Date Activated Date Inactivated Comments 05/19/2022 10:20 AM 05/19/2022 2:22 PM * Full Code Date Activated Date Inactivated Comments 04/04/2019 9:58 AM 04/04/2019 1:48 PM Care Teams Laboratory Chief Relationship Specialty Start Date End Date Vanessa Culver MD [address] [place] [address] PCP - General Internal Medicine 05/24/25
--- OUTSIDE RECORDS SUMMARY | 2025-09-11 08:55 | XMS_ITS | Encounter Summary ---
Author Organization [facility] Address [address] [place] [address] Care Team Providers Care Graphic Art Designer Name Role Phone Vanessa Culver MD Primary Care Provider [phone] Encounter Details Date Type Department Care Team ([facility] Contact Info) Description 07/24/2020 Orders Only [facility] Practice [address] [place] [address] Swapnil Lopez, MIKIE [address] [place] [address] Social History Tobacco Use Types Packs/Day Years Used Date Smoking Tobacco: Former Cigarettes 1 40 0 01/19/1977 - 01/31/2017 Smokeless Tobacco: Never Comments:started at age 14 Alcohol Use Standard Drinks/Week Comments No 0 (1 standard drink = 0.6 oz pure alcohol) used to be an alcoholic , sober since 1991 PHQ-2 Answer Date Recorded PHQ-2 Score 0 02/29/2020 [facility] [place] of Occupat ional Health - Occupational Stress Questionnaire Answer Date Recorded Feeling of Stress Rather much 02/29/2020 Exercise Vital Sign Answer Date Recorde d Days of Exercise per Week 7 days 2019 Minutes of Exercise per Session 60 min 02/29/2020 Comments No Sex and Gender Information Value Date Recorded Sex Assigned at Not on file Legal Sex Female 8:31 PM EST Gender Identity Not on file Sexual Orientation Not on file Occupation Industry Job Start Date Job End Date 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 No / Unsure 07/24/2020 11:08 AM EST documented as of this encounter Plan of Treatment Upcoming Encounters Date Type Department Care Team ([facility] st Contact Info) Description 12/19/2025 1:00 PM EDT Office Visit [facility] [address] [place] [phone] Lalo Grove MD [address] [place] [id number] F/u with Dr. Lalo Grove next November - January 06 CHF documented as of this encounter Goals Goal Patient Goal Type Associated Problems Recent Progress Patient-Stated? Author Quit smoking / using tobacco Lifestyle No Ana Vides documented as of this encounter Procedures * Due to [place] [employer] law, this organization might not be sharing negative HIV tests. Procedure Name Priority Date/Time Associated Diagnosis Comments CBC INCLUDES DIFFERENTIAL AND PLATELET COUNT Same Day Results 07/24/2020 3:43 PM EST Fatigue, unspecified type VENIPUNCTURE Routine 07/24/2020 3:43 PM EST Fatigue, unspecified type T4, FREE, SERUM Routine 07/24/2020 3:43 PM EST COMPREHENSIVE METABOLIC PANEL WITH GFR Routine 07/24/2020 3:43 PM EST Fatigue, unspecified type documented in this encounter Results * Due to [place] [employer] law, this organization might not be sharing negative HIV tests. * T4, FREE, SERUM (07/24/2020 3:43 PM EST) FT4 1.3 0.9 - 1.7 NG/DL [facility] 07/24/2020 3:43 PM EST 07/24/2020 3:43 PM EST Narrative [facility] - 07/24/2020 5:13 PM EST Patient's primary care provider is: N/A Testing performed at: [facility], [address] [place] [address], [id number], Guide Dog Trainer: Dean Perez MD Swapnil Lopez NP LABORATORY Final Result [facility] [address] [place] [address] DIRECTOR Dean Perez MD * CBC INCLUDES DIFFERENTIAL AND PLATELET COUNT (07/24/2020 3:43 PM EST) WBC 5.6 3.8 - 10.8 K/uL [facility] Neutrophils # 2.4 1.5 - 7.8 K/uL [facility] Immature Granulocytes # 0.0 0.0 - 0.1 K/uL [facility] Lymphocytes # 2.4 0.9 - 3.9 K/uL [facility] Monocytes # 0.4 0.2 - 1.0 K/uL [facility] Eosinophils # 0.3 0.0 - 0.5 K/uL [facility] Basophils # 0.0 0.0 - 0.2 K/uL [facility] Neutrophils % 43.5 % [facility] Immature Granulocytes % 0.20 % [facility] Lymphocytes % 43.8 % [facility] Monocytes % 6.8 % [facility] Eosinophils % 5.2 % [facility] Basophils % 0.5 % [facility] RBC 4.02 3.80 - 5.10 M/uL [facility] Hemoglobin 12.3 11.7 - 15.5 g/dL [facility] Hematocrit 38.4 35.0 - 45.0 % [facility] MCV 95.5 80.0 - 100.0 fl [facility] MCH 30.6 27.0 - 33.0 pg [facility] MCHC 32.0 32.0 - 36.0 g/dL [facility] RDW 12.8 11.0 - 15.0 % [facility] PLT 166 140 - 400 K/uL [facility] 07/24/2020 3:43 PM EST 07/24/2020 3:43 PM EST Narrative [facility] - 07/24/2020 4:03 PM EST Patient's primary care provider is: N/A Testing performed at: [facility], [address] [place] [address], [address], Guide Dog Trainer: Dean Perez MD Swapnil Lopez NP LAB SAME DAY RESULT Final Result [address] [address] DIRECTOR Dean Perez MD * COMPREHENSIVE METABOLIC PANEL WITH GFR (07/24/2020 3:43 PM EST) Glucose 73 65 - 99 mg/dl [facility] Urea Nitrogen Blood (BUN) 25 7 - 25 mg/dL [facility] Creatinine 0.85 0.50 - 1.16 mg/dL [facility] Sodium 137 136 - 145 mmo/L [facility] Potassium 4.6 3.5 - 5.3 mmol/L [facility] Chloride 101 98 - 107 mmo/L [facility] Calcium 9.7 8.5 - 10.4 mg/dL [facility] Protein Total (Serum) 7.0 6.0 - 8.3 g/dL [facility] Albumin 4.1 3.5 - 5.2 g/dL [facility] Globulin 3 2 - 4 G/DL [facility] Bilirubin Total 0.32 0.00 - 1.20 mg/dL [facility] Alkaline phosphatase 65 33 - 130 U/L [facility] AST (SGOT) 22 <38 U/L [facility] ALT (SGPT) 14 <47 U/L [facility] Carbon dioxide 29 23 - 33 mmol/L [facility] GFR 70 >60 ml/min [facility] Comment:If the patient is Af rican Malaysian, please multiply result by 1.210 07/24/2020 3:43 PM EST 07/24/2020 3:43 PM EST Narrative [facility] - 07/24/2020 4:51 PM EST Patient's primary care provider is: N/A Testing performed at: [facility], [address] [place] [address], [address], Guide Dog Trainer: Dean Perez MD Periscope MOTION PICTURE CAMERA OPERATOR LABORATORY Final Result Performing Organization Address [facility] Co de Phone Number [address] [address] DIRECTOR Dean Perez MD * (ABNORMAL) THYROID STIMULATING HORMONE (TSH) WITH FREE T4 REFLEX, SERUM (07/24/2020 3:43 PM EST) TSH (Thyrotropin) 5.17(H) 0.40 - 4.50 uIU/ml [facility] 07/24/2020 3:43 PM EST 07/24/2020 3:43 PM EST Narrative [facility] - 07/24/2020 4:51 PM EST Patient's primary care provider is: N/A Testing performed at: [facility], [address] [place] [address], [address], Guide Dog Trainer: Dean Perez MD Swapnil John MOTION PICTURE CAMERA OPERATOR LABORATORY Final Result Performing Organization Address [facility] Co de Phone Number [address] [address] DIRECTOR Dean Perez MD documented in this encounter Visit Diagnoses Diagnosis Fatigue, unspecified type documented in this encounter Care Teams Graphic Art Designer Relationship Specialty Start Date End Date Vanessa Culver MD PCP - General 08/31/14 documented as of this encounter
--- OUTSIDE RECORDS SUMMARY | 2025-09-11 08:55 | XMS_ITS ---
Author Organization [facility] Address [address] [place] [address] Care Team Providers Care Geotechnical Laboratory Technician Name Role Phone Vanessa Culver MD Primary Care Provider [phone] Active Problems * This document contains information received from the source organization and may not represent a complete record from that organization. Problem Noted Date Diagnosed Date Restless leg [...] tightness 01/20/2023 Atherosclerosis of coronary artery of [place] heart without angina pectoris 12/17/2022 Malignant neoplasm [...] opioid dependence 11/04/2021 Overview (01/24/2025): Refer to [facility] G[facility] OV 11/04/21: Encounter diagnosis: Uncomplicated opioid dependence (CMS/HCC) (Primary Dx); Refer to [facility] OV 11/04/21: Encounter diagnosis: [...] use symbicort as her maintenance inhaler twice Current Treatment and Therapy Plans No current plan information found. Past Treatment and Therapy Plans No past plan information found. Lifetime Dose Tracking * Chemical Lifetime Dose Automatic Entry Manual Entr y Fluoro Time 2.22 minutes 2.22 minutes 0 minutes TotalDLP 2,894 mGy 2,894 mGy 0 mGy [id number] 32.9 mSv 32.9 mSv 0 mSv CTDIvol Max 81.6 mGy 81.6 mGy 0 mGy CTDIvol Min 63.7 mGy 63.7 mGy 0 mGy Radiation - mGy 22.7 mGy 22.7 mGy 0 mGy Resolved Problems Problem Noted Date Diagnosed Date Resolved Date Tobacco use 09/18/2013 12/02/2017
--- OUTSIDE RECORDS SUMMARY | 2025-09-11 08:55 | XMS_ITS | Encounter Summary ---
Author Organization [facility] Address [address] [place] [address] Care Team Providers Care Process Laboratory Specialist Name Role Phone Vanessa Culver MD Primary Care Provider [phone] Reason for Visit * Reason Onset Date Comments Neurologic Problem 09/07/2025 Encounter Details Date Type Department Care Team (Late st Contact Info) Description 09/07/2025 Telephone [facility] Neurology [facility] [address] [place] [address] Jorge Piña MD [address] [facility] [address] [place] [address] Neurologic Problem Social History Tobacco Use Types Packs/Day Years [...] and Family Not on file 08/23/2025 Attends Jainism Services Not on file 08/23 Active Member [...] the Last Year Not on file 2024 [facility] Utilities Answer Date Recorded In the past [...] on file documented as of this encounter Functional Status * Are you [...] Entry Date Author No 08/20/2025 2:28 PM EST Guerda Sparks RN documented in this encounter Miscellaneous Notes * Telephone Encounter - Mike Hughes - 09/07/2025 1:33 PM EST Called patient and left voicemail regarding referral to Neurology.Left message in regards to book possible appt. documented in this encounter Plan of Treatment Upcoming Encounters Date Type Department Care Team (Late st Contact Info) Description 09/11/2025 12:40 PM EST Appointment [facility] Diagnostic Radiology [address]th [place] [address] Everette Mccallum PA [address] [place] [address] In Person with Resource 09/11/2025 1:00 PM EST Office Visit [facility] Orthopedics [address] [place] [address] Everette Mccallum PA [address] [place] [address] In Person with Physician Emergency Department documented as of this encounter Goals Goal Patient Goal Type Associated Problems Recent Progress Patient-Stated? 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 [place] [address] PCP - General Internal Medicine 08/18/24 documented as of this encounter
--- OUTSIDE RECORDS SUMMARY | 2025-09-11 08:55 | XMS_ITS ---
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 Role Phone Tang Ceja Unavailable Unavailable St Lona, Clelie Unavailable Unavailable Marti Laurent Unavailable Unavailable Stanley, Byrondeloris Leavittkakant Unavailable Shaylee vailable Emy Gardiner Unavailable Unavailable Allergies and adverse reactions Code CodeSystem Substance Reaction Severity StartDate Concern Status 56722 RXNORM Gabapentin Unknown 08/07/2025 active 16727 RXNORM Tetracycline Unknown 08/07/2025 active Care Team Name Role Address Phone Organization Dates Tang Ceja PCP [address] [place] [address], [id number], [facility] (Office): : [facility] 08/10/2025 - 09/05/[address] Lona [address] [facility] [address], [place], [facility], [facility] (Office): : [facility] 08/10/2025 - 09/05/2025 Martitheresa Laurent [address] [place], [place], [facility], [facility] (Office): : : [facility] 08/10/2025 - 09/05/2025 Byron Stanley [address] [facility] [address], [address] (Office): : : [facility] 08/10/2025 - 09/05/2025 Emy Gardiner [address] [facility] [address], [address] (Office): : : [facility] 08/10/2025 - 09/05/2025 Imaging Narrative Note Date Imaging Narrative No te 08/13/2025 SIGNIFICANT FINDINGS Chest, single view:.CHEST, SINGLE VIEWFINDINGS:There is a pacemaker overlying the left pectoral region.The lungs are slightly congested. There is no demonstrated parenchymal abnormality. There is no demonstrated pleural abnormality.Normal heart and pericardium..Normal mediastinum and corinne. Normal visualized pulmonary arteries. Normal visualized aortic arch and descending thoracic aorta..Degenerative changes of the visualized thoracic spine. Total right shoulder prosthesis.There is no demonstrated abnormality of the visualized soft tissue structures of the upper abdomen..IMPRESSION:Mild lung congestion...Electronically Signed By: Dr. Darren Pedrzoa M.D. 08/13/2025 See Attachment Encounters Encounter Type Code Code System Description Performer Discharge Disposition Service Delivery Location Date Ambulatory Encounter CPT Code = [id number] Admission by orthopedic surgeon Vanessa Reynolds Discharge to alf [facility] Address: [facility] [address] [facility], [place], [place], [address] [place] [address]. 08/10 Ambulatory Encounter CPT Code = [id number] Chronic obstructive pulmonary disease Mendez Ssemwogerere Discharge to alf [facility] Address: [address] [place], [place], [address] [place] [address]. 08/10 Ambulatory Encounter CPT Code = [id number] Centriacinar emphysema Mendez Ssemwogerere Discharge to alf [facility] Address: [address] [place] [address], [address] [place] [address]. 08/10 Ambulatory Encounter CPT Code = [id number] Immunodeficiency disorder Mendez Ssemwogerere Discharge to alf [facility] Address: [address] [place] [address], [address] [place] [address]. 08/10 Ambulatory Encounter CPT Code = [id number] Chronic pancreatitis Mendez Ssemwogerere Discharge to alf [facility] Address: [address] [place] [address], [address] [place] [address]. 08/10 Ambulatory Encounter CPT Code = [id number] Breakage of joint prosthesis Mendez Ssemwogerere Discharge to alf [facility] Address: [address] [place] [address], [address] [place] [address]. 08/10 Ambulatory Encounter CPT Code = [id number] Muscle weakness Mendez Ssemwogerere Discharge to alf [facility] Address: [address] [place] [address], [address] [place] [address]. 08/10 Ambulatory Encounter CPT Code = [id number] Difficulty walking Mendez Ssemwogerere Discharge to alf [facility] Address: [address] [place] [address], [address] [place] [address]. 08/10 Ambulatory Encounter CPT Code = [id number] Unsteady when standing Mendez Ssemwogerere Discharge to alf [facility] Address: [address] [place] [address], [address] [place] [address]. 08/10 Ambulatory Encounter CPT Code = [id number] Prosthetic arthroplasty of shoulder Mendez Ssemwogerere Discharge to alf [facility] Address: [address] [place], [place], [address] [place] [address], [facility]. 08/10 Ambulatory Encounter CPT Code = [id number] Undernutrition Mendez Ssemwogerere Discharge to alf [facility] Address: [address] [place], [place], [address] [place] [address], [facility]. 08/10 Ambulatory Encounter CPT Code = [id number] Problem related to lifestyle Mendez Ssemwogerere Discharge to alf [facility] Address: [address] [place], [place], [address] [place] [address], [facility]. 08/10 Ambulatory Encounter CPT Code = [id number] Dependence on supplemental oxygen Mendez Ssemwogerere Discharge to alf [facility] Address: [address] [place], [place], [address] [place] [address], [facility]. 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 08/10 Ambulatory Encounter CPT Code = [id number] Gastroesophageal reflux disease without esophagitis Mendez Ssemwogerere Discharge to alf [facility] Address: [address] [place], [place], [address] [place] [address], [facility]. 08/10 Ambulatory Encounter CPT Code = [id number] Moderate recurrent major depression Mendez Ssemwogerere Discharge to alf [facility] Address: [address] [place], [place], [address] [place] [address], [facility]. 08/10 Ambulatory Encounter CPT Code = [id number] Implantation procedure Mendez Ssemwogerere Discharge to alf [facility] Address: [address] [place], [place], [address] [place] [address], [facility]. 08/10 Ambulatory Encounter CPT Code = [id number] Cardiomyopathy Mendez Ssemwogerere Discharge to alf [facility] Address: [address] [place], [place], [address] [place] [address]. 08/10 Ambulatory Encounter CPT Code = [id number] Atherosclerosis of coronary artery without angina pectoris Mendez Ssemwogerere Discharge to alf [facility] Address: [address] [place], [place], [address] [place] [address], [facility]. 08/10 Ambulatory Encounter CPT Code = [id number] Hypothyroidism Mendez Ssemwogerere Discharge to alf [facility] Address: [address] [place], [place], [address] [place] [address]. 08/10 Ambulatory Encounter CPT Code = [id number] Nicotine dependence Mendez Ssemwogerere Discharge to alf [facility] Address: [address] [place], [place], [address] [place] [address], [facility]. 08/10 Ambulatory Encounter CPT Code = [id number] Generalized anxiety disorder Mendez Ssemwogerere Discharge to alf [facility] Address: [address] [place], [place], [address] [place] [address]. 08/10 Goals Section Goals Description Status Target Date Advanced Directives will be honored and reevalua fredi as needed Active 08/27/2025 Decreased number of falls Active 2024 Mayra will express feelings of adjustment to new surroundings during STR stay. Active 08/27/2025 Fracture will heal without complications Active 08/27/2025 Identify alternative coping mechanisms to life s ituations Active 08/27/2025 Increase patient's ability to fall asleep or jesica ntain sleep Active 08/27/2025 Maintain involvement with ADL performance and so cial activities Active 08/27/2025 Remain free from unauthorized substances while i n the facility Active 08/27/2025 Skin will remain free of leonel akdown within limits of disease process Active 08/27/2025 Surgical wound/site will heal without complicati ons Active 08/27/2025 Thrombosis/DVT will be resolved without complica tions Active 08/27/2025 Will accept care and medication as prescribed Ac tive 08/27/2025 Will actively participate in independent activities of choice daily Active 08/27/2025 Will be clean, dressed and w ell groomed daily to promote dignity and psychosocial well-being Active 08/27/2025 Will be discharged to home w hen clinical and rehabilitation goals are met Active 08/27/2025 Will consume appropriate debo unts of food and fluids to maintain nutritional status Active 08/27/2025 Will develop no signs or symptoms of thrombosis/ DVT Active 08/27/2025 Will eliminate unauthorized alcohol and opiates use/consumption Active 08/27/2025 Will exhibit no acute cardia c distress such as complaints of chest pain, cyanosis, SOB, etc. Active 08/27/2025 Will exhibit no signs or sym ptoms of aspirations such as coughing, fever, etc. Active 08/27/2025 Will experience effective symptom management Act anuj 08/27/2025 Will experience signs and symptoms of wound heal ing Active 08/27/2025 Will express that pain management is within acce ptable limits Active 08/27/2025 Will have no acute respiratory distress Active 08/27/2025 Will have no adverse effects related diuretic th erapy Active 08/27/2025 Will have no adverse effects related to all ASA therapy Active 08/27/2025 Will have no adverse effects related to anticoag ulant therapy Active 08/27/2025 Will have no adverse effects related to thyroid therapy Active 08/27/2025 Will initiate social interaction with peers Acti ve 08/27/2025 Will maintain a patent airway Active Will maintain existing ADL self performance Acti ve 08/27/2025 Will maintain involvement wi th ADL performance and social activities Active 08/27/2025 Will not develop an infection by next review Act anuj 08/27/2025 Will not experience a signif icant change in weight through next review Active 08/27/2025 Will show improvement in mood/behavior Active 08/27/2025 Will tolerate diet, texture and fluid consistency without signs and symptoms of aspiration Active 08/27/2025 Immunizations Immunization Status Vaccine Details Vaccine Code CodeSystem Date Notes Prevnar 20 Pneumococcal conjugate (PCV20) completed Pneumococcal conjugate vaccine 20-valent (PCV20), polysaccharide [id number] conjugate, adjuvant, preservative free 216 CVX created date: 08/13/2025 administere d date: 05/30/2024 RSV, bivalent, protein subunit RSVpreF, diluent rec completed Respiratory syncytial virus (RSV), vaccine, bivalent, protein subunit RSV prefusion F, diluent reconstituted, 0.5 mL, preservative free 305 CVX created date: 08/13/2025 administere d date: 12/14/2024 COVID-19, mRNA, LNP-S, PF, 50 mcg/0.5 mL completed SARS-COV-2 (COVID-19) vaccine, mRNA, spike protein, LNP, preservative free, 50 mcg/0.5 mL dose 312 CVX created date: 08/13/2025 administere d date: 09/22/2021 COVID-19, mRNA, LNP-S, PF, 50 mcg/0.5 mL completed SARS-COV-2 (COVID-19) vaccine, mRNA, spike protein, LNP, preservative free, 50 mcg/0.5 mL dose 312 CVX created date: 08/13/2025 administere d date: 11/23/2020 Medications Section Medication Name Status Code CodeSystem Dose Route Frequency Admin Type Sig Text Start Date End Date Indication Senna Tablet 8.6 MG aborted 78392 5 RXNORM 1 table t Oral as needed PRN Give 1 table t by mouth every 24 hours as neede d for Const ipati on 09/09 Constipatio n Bisacodyl Suppository 10 MG aborted 9 RXNORM 1 suppo sitor y Rectal as needed PRN Inser t 1 suppo sitor y recta lly every 24 hours as neede d for const ipati on Use if Senna is Ineff ectiv e 09/09 constipatio n Fleet Saline Enema aborted 133 ml Rectal as needed PRN Inser t 133 ml recta lly every 24 hours as neede d for Const ipati on if bisac odyl suppo sitor y not effec tive. If no BM after Fleet Enema Call MD Levy oncen trati on: Dibas ic sodiu m Phosp hate 7g/Mo nobas ic Sodiu m Phosp hate 19g 09/09 Constipatio n if bisacodyl suppository not effective. Ascorbic Acid Oral Tablet 500 MG aborted 12632 3 RXNORM 500 mg Oral in the morning Routin e Give 500 mg by mouth in the morni ng for suppl ement 09/09 supplement Acetaminoph en Oral Packet 500 MG aborted 92463 60 RXNORM 1000 mg Oral three times a day Routin e Give 1000 mg by mouth three times a day for Pain 09/09 Pain Tums Tablet Chewable 500 MG aborted 7 RXNORM 500 mg Oral one time a day Routin e Give 500 mg by mouth one time a day for antac id Take with food. Separ ate by 2 hours from iron. Do not give withi n 4 hours of Levot hyrox ine. 09/09 antacid Potassium Chloride ER Tablet Extended Release 10 MEQ aborted 56591 3 RXNORM 1 table t Oral one time a day Routin e Give 1 table t by mouth one time a day for ELECT ROLYT ES Do not crush or chew. Take with meal. Take with plent y of water . 09/09 ELECTROLYTE S Levothyroxi ne Sodium Oral Capsule 50 MCG aborted 50466 7 RXNORM 50 mcg Oral in the morning Routin e Give 50 mcg by mouth in the morni ng for thyro id 09/09 thyroid Entresto Oral Tablet 24-26 MG aborted 21867 46 RXNORM 1 table t Oral two times a day Routin e Give 1 table t by mouth two times a day for HTN 08/12 HTN oxyCODONE HCl Oral Tablet 5 MG aborted 72052 21 RXNORM 5 mg Oral as needed PRN Give 5 mg by mouth every 4 hours as neede d for PAIN 08/17 PAIN PARoxetine HCl Tablet 20 MG aborted 83931 95 RXNORM 1 table t Oral one time a day Routin e Give 1 table t by mouth one time a day for ANTID EPRES SAMI May cause drows iness . Avoid alcoh ol. 09/09 ANTIDEPRESS ANT Metoprolol Succinate ER Tablet Extended Release 24 Hour 25 MG aborted 22776 7 RXNORM 0.5 table t Oral one time a day Routin e Give 0.5 table t by mouth one time a day for HTN Take with or immed iatel y follo wing meals . Do not crush . 08/12 HTN Budesonide- Formoterol Fumarate Inhalation Aerosol 160-4.5 MCG/ACT aborted 84125 04 RXNORM 2 puff Inhala tion two times a day Routin e 2 puff inhal e orall y two times a day for Bronc hodil ator rinse mouth after use 09/09 Bronchodila tor Lipitor Tablet 20 MG aborted 04155 8 RXNORM 1 table t Oral at bedtime Routin e Give 1 table t by mouth at bedti me for hyper chols terol emia Avoid grape fruit juice 09/09 hypercholst erolemia Creon Oral Capsule Delayed Release Particles [id number] UNIT aborted 45559 9 RXNORM 2 capsu le Oral with meals Routin e Give 2 capsu le by mouth with meals for diges tive aid 09/09 digestive aid Bactrim DS Oral Tablet 800-[place] [address] 0 RXNORM 1 table t Oral two times a day Routin e Give 1 table t by mouth two times a day for antib iotic s for 4 Admin istra tions 08/13 antibiotics Furosemide Oral Tablet 20 MG aborted 00953 9 RXNORM 20 mg Oral one time a day Routin e Give 20 mg by mouth one time a day every Mon, Wed, Fri for diure tic 09/09 diuretic Dulera Inhalation Aerosol 100-5 MCG/ACT aborted 98647 10 RXNORM 2 puff Inhala tion two times a day Routin e 2 puff inhal e orall y two times a day for Antih istam ine 08/13 Antihistami ne Spiriva Respimat Inhalation Aerosol Solution 2.5 MCG/ACT aborted 85264 04 RXNORM 2 puff Inhala tion one time a day Routin e 2 puff inhal e orall y one time a day for Bronc hodil ator 09/09 Bronchodila tor Restasis Emulsion aborted 1 drop Ophtha lmic two times a day Routin e Insti ll 1 drop in both eyes two times a day for dry eye Wait 15 minut es betwe en diffe rent eye drop. Remov e conta cts befor e using and do not repla ce until 15 minut es after . 09/09 dry eye Omeprazole Oral Capsule Delayed Release 20 MG aborted 1 RXNORM 20 mg Oral in the morning Routin e Give 20 mg by mouth in the morni ng for acid reflu x 09/09 acid reflux Suboxone Sublingual Film 4-1 MG aborted 60445 58 RXNORM 1 film Sublin gual one time a day Routin e Give 1 film subli ngual ly one time a day for opioi d 08/12 opioid prednisoLON E Acetate Ophthalmic Suspension 1 % aborted 35762 36 RXNORM 1 drop Ophtha lmic three times a day Routin e Insti ll 1 drop in left eye three times a day for eye drops until 08/14 23:59 AND Insti ll 1 drop in left eye two times a day for eyedr op until 08/21 23:59 AND Insti ll 1 drop in left eye one time a day for eye drop until 08/28 23:59 08/12 eye drops 53334 36 RXNORM 1 drop Ophtha lmic two times a day Routin e Insti ll 1 drop in left eye three times a day for eye drops until 08/14 23:59 AND Insti ll 1 drop in left eye two times a day for eyedr op until 08/21 23:59 AND Insti ll 1 drop in left eye one time a day for eye drop until 08/28 23:59 08/12 eyedrop 59676 36 RXNORM 1 drop Ophtha lmic one time a day Routin e Insti ll 1 drop in left eye three times a day for eye drops until 08/14 23:59 AND Insti ll 1 drop in left eye two times a day for eyedr op until 08/21 23:59 AND Insti ll 1 drop in left eye one time a day for eye drop until 08/28 23:59 08/12 eye drop LORazepam Tablet 0.5 MG aborted 0 RXNORM 0.5 table t Oral two times a day Routin e Give 0.5 table t by mouth two times a day for anxie ty May cause drows iness . Avoid alcoh ol. AND Give 1 table t by mouth every 6 hours as neede d for anxie ty for 14 Days May cause drows iness . Avoid alcoh ol. 08/12 anxiety 70725 0 RXNORM 1 table t Oral as needed PRN Give 0.5 table t by mouth two times a day for anxie ty May cause drows iness . Avoid alcoh ol. AND Give 1 table t by mouth every 6 hours as neede d for anxie ty for 14 Days May cause drows iness . Avoid alcoh ol. 08/12 anxiety prednisoLON E Acetate Ophthalmic Suspension 1 % aborted 91181 36 RXNORM 1 drop Ophtha lmic in the morning Routin e Insti ll 1 drop in right eye in the morni ng for eye drop until 08/16 23:59 08/12 eye drop Zenpep Oral Capsule Delayed Release Particles [id number] UNIT aborted 28347 73 RXNORM 2 capsu le Oral before meals and at bedtime Routin e Give 2 capsu le by mouth befor e meals and at bedti me for diges tive aid GIVE SNACK AT HS WITH SNACK PRIOR AND AFTER ADMIN ASTRA TION 09/09 digestive aid ALPRAZolam Tablet 0.5 MG aborted 96976 8 RXNORM 0.5 table t Oral as needed PRN Give 0.5 table t by mouth every 24 hours as neede d for anxie ty for 14 Days 08/12 anxiety Ipratropium -Albuterol Solution 0.5-2.5 (3) MG/3ML aborted 67643 02 RXNORM 1 vial Inhala tion as needed PRN 1 vial inhal e orall y via nebul izer every 4 hours as neede d for COPD/ SOB/w heezi ng AND 1 vial inhal e orall y via nebul izer three times a day for COPD 09/09 COPD/SOB/wh eezing 29800 02 RXNORM 1 vial Inhala tion three times a day Routin e 1 vial inhal e orall y via nebul izer every 4 hours as neede d for COPD/ SOB/w heezi ng AND 1 vial inhal e orall y via nebul izer three times a day for COPD 09/09 COPD Suboxone Sublingual Film 4-1 MG aborted 73903 58 RXNORM 1 film Sublin gual in the evening Routin e Give 1 film subli ngual ly in the eveni ng for opioi d 09/09 opioid Entresto Oral Tablet 24-26 MG aborted 51244 46 RXNORM 0.5 table t Oral two times a day Routin e Give 0.5 table t by mouth two times a day for HTN OK TO USE PT OWN home suppl y 09/09 HTN predniSONE Oral Tablet 10 [place] [address] 5 RXNORM 40 mg Oral one time a day Routin e Give 40 mg by mouth one time a day for COPD for 4 Days AND Give 40 mg by mouth one time only for COPD for 1 Day 08/17 COPD 64658 5 RXNORM 40 mg Oral one time only One Time Only Give 40 mg by mouth one time a day for COPD for 4 Days AND Give 40 mg by mouth one time only for COPD for 1 Day 08/13 COPD ALPRAZolam Tablet 0[place]5 [place] [address] 8 RXNORM 1 table t Oral as needed PRN Give 1 table t by mouth every 24 hours as neede d for anxie ty for 14 Days 08/26 anxiety Metoprolol Succinate ER Tablet Extended Release 24 Hour 25 MG aborted 92978 7 RXNORM 0.5 table t Oral two times a day Routin e Give 0.5 table t by mouth two times a day for HTN Take with or immed iatel y follo wing meals . OK TO CUT in half 09/09 HTN LORazepam Oral Tablet 0.5 MG aborted 0 RXNORM 1 table t Oral three times a day Routin e Give 1 table t by mouth three times a day for anxie ty,ch ronic HOLD IF ELIER RGY 09/09 anxiety,chr onic Dulera Inhalation Aerosol 100-5 MCG/ACT aborted 97545 10 RXNORM 2 puff Inhala tion two times a day Routin e 2 puff inhal e orall y two times a day for copd rinse after use 09/09 copd Multivitami n Adults 50+ Oral Tablet aborted 1 unit Oral in the morning Routin e Give [facility] ; per [facility] resid ent malno urish ed 09/09 supplement; per [facility] resident malnourishe d Aspirin EC Tablet Delayed Release 81 MG aborted 07639 6 RXNORM 1 table t Oral one time a day Routin e Give 1 table t by mouth one time a day for Antic oagul ant until 09/12 17:38 Take with full glass of water , do not crush . Monit or for bleed ing, bruis ing, and black tarry stool s. Give with food to minim ize GI irrit ation 09/09 Anticoagula nt oxyCODONE HCl Oral Tablet 5 [place] [address] 21 RXNORM 2 table t Oral one time only One Time Only Give 2 table t by mouth one time only for acute pain for 1 Day 08/18 acute pain oxyCODONE HCl Oral Tablet 5 MG aborted 75973 21 RXNORM 5 mg Oral as needed PRN Give 5 mg by mouth every 4 hours as neede d for moder ate pain for 30 Days AND Give 10 mg by mouth every 4 hours as neede d for sever e pain for 30 Days 09/09 moderate pain 03439 21 RXNORM 10 mg Oral as needed PRN Give 5 mg by mouth every 4 hours as neede d for moder ate pain for 30 Days AND Give 10 mg by mouth every 4 hours as neede d for sever e pain for 30 Days 09/09 severe pain Cyclobenzap rine HCl Oral Tablet 5 MG aborted 88581 0 RXNORM 5 mg Oral as needed PRN Give 5 mg by mouth every 8 hours as neede d for muscl e spasm s pain for 28 Days 09/09 muscle spasms pain Mental Status Section Date Assessment Total Score Description 08/19/2025 CAM 0 No delirium ind icated 08/16/2025 BIMS 14 cognitively int act CAM 0 No delirium ind icated PHQ-9 00 Insurance Providers Coverage Status Coverage Type Relationship to Subscriber Member Identifier Subscriber Identifier Group Identifier Payer Identifier and Other information 2025 Code: 2 Code System OID:[id number]. 3.221.5 Code System Name: Source of Payment Typology (PHDSC) Display: Medicaid Translation : Code: 48 Code System: OID:[id number] [id number]. 6.255.1336 Code System Name: Insurance Type Code ([id number]) Display Name: Medicaid Code: SELF Code System Name: HL7 RoleCode Code System OID:[id number] Display Name: Self [id number] Root: [id number] Payer Identifier: Root: [id number] Extension: [id number] Payer Name: [place] Address: [address] [place] [address] City: [place] State: [place] Country: [facility] Plan of Treatment Section Interventions Intervention Code Code System Display Name Proposed D ate Problems Problem # Description Date of onset Resolved Date Code CodeSystem Concern Status 1 DIFFICULTY IN WALKING, NOT ELSEWHERE CLASSIFIED 08/10/[id number] active 2 ENCOUNTER FOR OTHER ORTHOPEDIC AFTERCARE 08/10/[address] active 3 MUSCLE WEAKNESS (GENERALIZED) 08/10/[address] active 4 UNSPECIFIED PROTEIN-CALORIE MALNUTRITION 08/10/[address] active 5 UNSTEADINESS ON FEET 08/10/[address] active 6 BROKEN INTERNAL JOINT PROSTHESIS, UNSPECIFIED SITE, SUBSEQUENT ENCOUNTER 08/01/[address] active 7 PRESENCE OF RIGHT ARTIFICIAL SHOULDER JOINT 07/31/[address] active 8 ALCOHOL USE, UNSPECIFIED, UNCOMPLICATED 07/06/[id number] active 9 DEPENDENCE ON SUPPLEMENTAL OXYGEN 07/06/[address] active 10 OTHER PSYCHOACTIVE SUBSTANCE USE, UNSPECIFIED, UNCOMPLICATED 07/06/[address] active 11 OTHER CHRONIC PANCREATITIS 07/05/[address] active 12 GASTRO-ESOPHAGEAL REFLUX DISEASE WITHOUT ESOPHAGITIS 02/27/[address] active 13 MAJOR DEPRESSIVE DISORDER, RECURRENT, MODERATE 05/30/20 75091449 SNOMED CT active 14 PRESENCE OF CARDIAC PACEMAKER 07/22/[address] active 15 CARDIOMYOPATHY, UNSPECIFIED 06/10/[address] active 16 ATHEROSCLEROTIC HEART DISEASE OF [place] CORONARY ARTERY WITHOUT ANGINA PECTORIS 12/18/[address] active 17 IMMUNODEFICIENCY DUE TO CONDITIONS CLASSIFIED ELSEWHERE 04/03/[address] active 18 HYPOTHYROIDISM, UNSPECIFIED 01/17/[address] active 19 PERSONAL HISTORY OF NICOTINE DEPENDENCE 10/18/[address] active 20 GENERALIZED ANXIETY DISORDER 05/27/[address] active 21 CENTRILOBULAR EMPHYSEMA 01/20/[address] active 22 CHRONIC OBSTRUCTIVE PULMONARY DISEASE, UNSPECIFIED 02/27/[address] active Reason for Referral No Reasons for Referral Entered Diagnostic Results Laboratory Test Results Code Code System Date Test Observation Result Interpretation Reference Range Status Notes 2075- 0 LOINC 08/13 Compreh ensive Panel Completed Result for: MAYRA ZIEGLER ( 9, F) 2823- 3 LOINC 08/13 Potassium Value: 4.8 Units: mmol/L Normal 3.5-5.2 Final 2951- 2 LOINC 08/13 Sodium Value: 131 Units: mmol/L Low 134-144 Final 3094- 0 LOINC 08/13 BUN/Creatinin e Ratio - High 12-28 Final 3094- 0 LOINC 08/13 BUN Value: 20 Units: mg/dL Normal 8-27 Final 2075- 0 LOINC 08/13 Chloride Value: 94 Units: mmol/L Low 96-106 Final 6690- 2 LOINC 08/13 CBC with automat ed Diff Completed Result for: MAYRA ZIEGLER ( 9, F) 789-8 LOINC 08/13 RBC Value: 3.83 Units: 10*6/uL Normal 3.77-5.28 Final 786-4 LOINC 08/13 MCHC Value: 31.4 Units: g/dL Low 31.5-35.7 Final 785-6 LOINC 08/13 MCH Value: 27.9 Units: pg Normal 26.6-33.0 Final 4544- 3 LOINC 08/13 Hematocrit Value: 34.1 Units: % Normal 34.0-46.6 Final 6690- 2 LOINC 08/13 WBC Value: 5.5 Units: 10*3/uL Normal 3.4-10.8 Final 1742- 6 LOINC 08/13 Compreh ensive Panel Completed Result for: MAYRA ZIEGLER ( 9, F) 1742- 6 LOINC 08/13 ALT (SGPT) Value: 21 Units: [IU]/L Normal 0-32 Final 777-3 LOINC 08/13 CBC with automat ed Diff Completed Result for: MAYRA ZIEGLER ( 9, F) 787-2 LOINC 08/13 MCV Value: 89 Units: fL Normal 79-97 Final 777-3 LOINC 08/13 Platelets Value: 346 Units: 10*3/uL Normal 150-450 Final 6768- 6 LOINC 08/13 Compreh ensive Panel Completed Result for: MAYRA ZIEGLER ( 9, F) 1920- 8 LOINC 08/13 AST (SGOT) Value: 23 Units: [IU]/L Normal 0-40 Final 6768- 6 LOINC 08/13 Alkaline Phosphatase Value: 207 Units: [IU]/L High 49-135 Final 704-7 LOINC 08/13 CBC with automat ed Diff Completed Result for: MAYRA ZIEGLER ( 9, F) 788-0 LOINC 08/13 RDW Value: 15.2 Units: % Normal 11.7-15.4 Final 770-8 LOINC 08/13 Neutrophils Value: 84 Units: % Normal Not Estab. Final 704-7 LOINC 08/13 Baso (Absolute) Value: 0.0 Units: 10*3/uL Normal 0.0-0.2 Final 58735 -3 LOINC 08/13 Compreh ensive Panel Completed Result for: MAYRA ZIEGLER ( 9, F) 14163 -3 LOINC 08/13 eGFR Value: 95 Units: mL/min/ 1.73 Normal >59 Final 742-7 LOINC 08/13 CBC with automat ed Diff Completed Result for: MAYRA ZIEGLER ( 9, F) 731-0 LOINC 08/13 Lymphs (Absolute) Value: 0.7 Units: 10*3/uL Normal 0.7-3.1 Final 736-9 LOINC 08/13 Lymphs Value: 13 Units: % Normal Not Estab. Final 706-2 LOINC 08/13 Basos Value: 0 Units: % Normal Not Estab. Final 713-8 LOINC 08/13 Eos Value: 0 Units: % Normal Not Estab. Final 5905- 5 LOINC 08/13 Monocytes Value: 3 Units: % Normal Not Estab. Final 751-8 LOINC 08/13 Neutrophils (Absolute) Value: 4.6 Units: 10*3/uL Normal 1.4-7.0 Final 711-2 [facility] 08/[facility] Eos (Absolute) Value: 0.0 Units: 10*3/uL Normal 0.0-0.4 Final 742-7 [facility] 08/13 Monocytes(Abs olute) Value: 0.1 Units: 10*3/uL Normal 0.1-0.9 Final 1974- [facility] 08/13 Compreh ensive Panel Completed Result for: MAYRA ZIEGLER ( 9, F) 2160- 0 [facility] 08/13 Creatinine Value: 0.56 Units: mg/dL Low 0.57-1.00 Final 2345- 7 [facility] 08/13 Glucose Value: 157 Units: mg/dL High 70-99 Final 60756 -6 [facility] 08/13 Calcium Value: 8.9 Units: mg/dL Normal 8.7-10.3 Final [facility] 08/13 Bilirubin, Total Value: 0.4 Units: mg/dL Normal 0.0-1.2 Final [facility] 08/13 Compreh ensive Panel / Magnesi um / Phospho jasiel / CBC with automat ed Diff / Report PDF Completed Result for: MAYRA ZIEGLER ( 9, F) 2777- 1 [facility] 08/13 Phosphorus Value: 4.0 Units: mg/dL Normal 3.0-4.3 Final - [facility] 08/13 Magnesium Value: 2.0 Units: mg/dL Normal 1.6-2.3 Final 123-9 9- 9 [facility] 08/13 Report PDF - Normal Final LP783 9-6 [facility] 08/13 Compreh ensive Panel Completed Result for: MAYRA ZIEGLER ( 9, F) 123-9 9- 9 [facility] 08/13 Protein, Total Value: 6.9 Units: g/dL Normal 6.0-8.5 Final -9 9- 9 [facility] 08/13 Anion Gap Value: 9.0 Units: mmol/L Low 10.0-18.0 Final 123-9 9999- 9 LOINC 08/13 Carbon Dioxide, Total Value: 28 Units: mmol/L Normal 20-29 Final 123-9 9999- 9 LOINC 08/13 Globulin, Total Value: 3.5 Units: g/dL Normal 1.5-4.5 Final LP783 9-6 LOINC 08/13 CBC with automat ed Diff Completed Result for: MAYRA ZIEGLER ( 9, F) 123-9 9999- 9 LOINC 08/13 Hemoglobin Value: 10.7 Units: g/dL Low 11.1-15.9 Final 123-9 9999- 9 LOINC 08/13 Immature Granulocytes Value: 0 Units: % Normal Not Estab. Final 14017 -7 LOINC 08/13 Compreh ensive Panel Completed Result for: MAYRA ZIEGLER ( 9, F) 71456 -7 LOINC 08/13 Albumin Value: 3.4 Units: g/dL Low 3.8-4.8 Final Radiology Test Results Code Code System Date Test Procedure Status Notes 08/13/2025 CHEST 2V* (AP AND LAT) / Report PDF Completed Result for: MAYRA ZIEGLER ( 1950, F) 08/13/2025 CHEST 2V* (AP AND LAT) Final SIGNIFICANT FINDINGSChest, single view:.CHEST, SINGLE VIEWFINDINGS:There is a pacemaker overlying the left pectoral region.The lungs are slightly congested. There is no demonstrated parenchymal abnormality. There is no demonstrated pleural abnormality.Normal heart and pericardium..Tracy l mediastinum and corinne. Normal visualized pulmonary arteries. Normal visualized aortic arch and descending thoracic aorta..Degenerativ e changes of the visualized thoracic spine. Total right shoulder prosthesis.There is no demonstrated abnormality of the visualized soft tissue structures of the upper abdomen..IMPRESSIO N:Mild lung congestion...Elect ronically Signed By: Dr. Darren Pedroza M.D. 08/13/2025 Report PDF Final See Attach ment Social History Social History Observation Description Start Date End Date Code Code System Current Smoking Status Tobacco smoking consumption unknown 936878479 SNOMED CT Sex Assigned At Female 1950 82179-6 LOINC Gender Identity Sexual Orientation Vital Signs Code Code System Vitals Name Values and Units Timing Information 36866-8 [facility] Pain Level Value=0.0 08/30/2025 9279-1 [facility] Respiratory Rate Value=20.0 Units=/m in 08/20/2025 88685-3 [facility] O2 % dC Oximetry Value=95.0 Units= % 08/20/2025 8867-4 [facility] Heart rate Value=98.0 Units=/min 03/2025 8462-4 [facility] Blood Pressure-Diastolic Value=71 Un its=mmHg 08/19/2025 8480-6 [facility] Blood Pressure-Systolic Rpqws=185 Un its=mmHg 08/19/2025 8310-5 [facility] Body Temperature Value=97.4 Units= F 08/19/2025 8302-2 [facility] Height Value=69.0 Units=Inches 08/14/2025 68572-4 [facility] Weight Uqktz=214.6 Units=Lbs 09/2024
--- OUTSIDE RECORDS SUMMARY | 2025-09-11 08:55 | XMS_ITS | Encounter Summary ---
Author Organization [facility] Address [address] [place] [address] Care Team Providers Care Natural Resources Faculty Member Name Role Phone Vanessa Culver MD Primary Care Provider [phone] Encounter Details Date Type Department Care Team ([facility] Contact Info) Description 10/11/2024 Orders Only [facility] [address] [place] [phone] Lalo Grove MD [address] [place] [phone] Medications Social History Tobacco Use Types Packs/Day Years Used Date Smoking Tobacco: Former Cigarettes 1 40 0 01/19/1977 - 01/31/2017 Smokeless Tobacco: Never Comments:started at age 14 Alcohol Use Standard Drinks/Week Comments No 0 (1 standard drink = 0.6 oz pure alcohol) used to be an alcoholic , sober since 1991 PHQ-2 Answer Date Recorded PHQ-2 Score 0 06/24/2021 [facility] Occupat ional Health - Occupational Stress [...] Intimate Partner Violence Answer Date R ecorded Fear of Current or Ex-Partner Not on file Emotionally Abused Not on file 04/26/2023 Physically Abused Not on file 04/26/2023 Sexually Abused Not on file 04/26/2023 Feel Safe at Home Not on file 04/26/2023 Social Connections Answer Date Recorded Phone Communication Once a week 06/24/2021 Get together with friends / family Once a week 06/24/2021 Attend jehovah's witness services Never 2020 Club Membership No 06/24/2021 [...] 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 Lalo Grove next November - January 06 CHF documented as of this encounter Goals Goal Patient Goal Type Associated Problems Recent Progress Patient-Stated? Author Quit smoking / using tobacco Lifestyle No Ana Vides documented as of this encounter Visit Diagnoses Diagnosis Dyspnea, unspecified type documented in this encounter Care Teams Natural Resources Faculty Member Relationship Specialty Start Date End Date Vanessa Culver MD PCP - General 08/31/14 documented as of this encounter
--- OUTSIDE RECORDS SUMMARY | 2025-09-11 08:55 | XMS_ITS | Encounter Summary ---
Author Organization [facility] Address [address] [place] [address] Care Team Providers Care Admiralty Lawyer Name Role Phone Vanessa Culver MD Primary Care Provider [phone] Reason for Visit * Reason Comments E-prescribing Refill Request Encounter Details Date Type Department Care Team ([facility] Contact Info) Description 07/17/2020 Refill [facility] Adult Medicine [address] [place] [phone] Swapnil Lopez NP [address] [place] [address] E-prescribing Refill Request Social History Tobacco Use Types Packs/Day Years Used Date Smoking Tobacco: Former Cigarettes 1 40 0 01/19/1977 - 01/31/2017 Smokeless Tobacco: Never Comments:started at age 14 Alcohol Use Standard Drinks/Week Comments No 0 (1 standard drink = 0.6 oz pure alcohol) used to be an alcoholic , sober since 1991 PHQ-2 Answer Date Recorded PHQ-2 Score 0 02/29/2020 [facility] of Occupat ional Health - Occupational Stress [...] 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 No / Unsure 06/27/2020 10:35 AM EDT documented as of this encounter Miscellaneous Notes * Telephone Encounter - Elizabeth De La Rosa - 07/18/2020 2:58 PM EST Any special requests or concerns? none Patient, Mayra Craft 69 y.o. female calling with request to renew medication(s). When do you need the medication? within 48 hours Last CPE with this specialty: 04/28/2018 Last OV with this specialty: 06/20/2020 Next OV: No future appointments. Unable to confirm pharmacy with pt, most recent pharmacy on file was used. Pertinent lab results: Lab Results Component Value Date SODIUM 136 07/06/2019 POTASSIUM 4.4 07/06/2019 CHLOR 102 07/06/2019 CO2 28 01/12/2019 BUN 23 07/06/2019 CREATININE 0.70 07/06/2019 GFR 88 (L) 07/06/2019 GFR >90 07/06/2019 GLUCOSE 106 (H) 07/06/2019 MARIANA 9.0 07/06/2019 An open order for Basic exists. Testing recommended a minimum of yearly for chronic therapy . Based on last lab testing intervals, 3 month supply suggested for potassium, diuretics, MELLO inhibitors, ARBs and bone density medications. Note that lab testing is due now. Please place orders if needed and/or remind the patient to go to the lab. Allergies: Tetracycline and Tetracyclines & related Pended medication order(s) and sent to provider. Patient expects medication renewal unless notifiedby this office. BP Readings from Last 1 Encounters: 06/27/20 129/82 Patient Active Problem List Diagnosis Date Noted ??? NSVT (nonsustained ventricular tachycardia) (HCC) 11/15/2019 ??? Abnormal EKG 09/18/2019 New on EKG 09/2019; neg troponins in ER. Cardiac consult scheduled for 09/20/2019 ??? Hypertension 02/09/2019 ??? Cough 10/18/2017 ??? Left sided chest pain 10/18/2017 ??? History of tobacco use 10/18/2017 ??? Insomnia 06/29/2017 ??? Generalized anxiety disorder 05/27/2017 ??? Hx of cancer of lung , s/p segmental lung resection 04/08/2017 ??? Centrilobular emphysema (HCC) 01/19/2017 ??? Shortness of breath 01/19/2017 ??? Solitary pulmonary nodule 01/19/2017 ??? Pulmonary emphysema (HCC) 01/18/2017 ??? Osteoporosis 11/20/2016 ??? Vitamin D deficiency 11/20/2016 ??? Chronic pancreatitis (HCC), followed by GI in ass 11/06/2015 ??? 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 ??? chronic Shoulder pain 02/21/2010 ??? TIA (transient ischemic attack) 02/21/2010 ??? Lung disease, chronic obstructive 02/26/2009 ??? History of basal cell carcinoma 02/26/2009 Current Outpatient Medications on File Prior to Visit Medication Sig Dispense Refill ??? Gabapentin (NEURONTIN) 100 MG capsule Take one capsule (100 mg total) by mouth 3 (three) times a day 90 capsule 0 ??? QUEtiapine Fumarate (SEROquel) 50 MG tablet Take one tablet (50 mg total) by mouth every night at bedtime. 90 tablet 1 ??? LORazepam (ATIVAN) 0.5 MG tablet Take one tablet (0.5 mg total) by mouth 2 (two) times a day ifneeded for anxiety for up to 10 days 4 tablet 0 ??? Diclofenac Sodium 1 % Gel Apply 2 g topically 2 (two) times a day if needed for pain (to affected area) 100 g 0 ??? Budesonide-Formoterol Fumarate (SYMBICORT) 160-4.5 MCG/ACT inhaler INHALE 2 PUFFS BY MOUTH TWICE DAILY. RINSE YOUR MOUTH THOROUGHLY AFTERWARDS 30.6 g 3 ??? Lisinopril (PRINIVIL,ZESTRIL) 40 MG tablet Take one tablet (40 mg total) by mouth 1 (one) time each day 90 tablet 0 ??? ALBUTEROL SULFATE (Ventolin HFA) 108 (90 Base) MCG/ACT inhaler INHALE 2 PUFFS BY MOUTH EVERY 4 TO 6 HOURS NEEDED FOR SHORTNESS OF BREATH 1 Inhaler 5 ??? B Complex Cap Take 1 capsule by mouth 1 (one) time each day ??? Ascorbic Acid (VITAMIN C) 500 MG Cap Take 1 capsule by mouth 1 (one) time each day ??? oxyCODONE ER (XTAMPZA ER) 36 MG Capsule Extended Release 12 hour Abuse- Deterrent Xtampza ER 36 mg capsule sprinkle ??? Cholecalciferol (VITAMIN D3) 5000 UNITS Cap 1 CAPSULE DAILY ??? Pancrelipase, Pgk-Shhu-Solr, (ZENPEP) [address] Particles 3 capsules before each meal ??? OxyCODONE HCl 10 MG Tab TK 1 T PO Q 6 HOURS PRN P 0 documented in this encounter Plan of Treatment Upcoming Encounters Date Type Department Care Team (Late st Contact Info) Description 12/19/2025 1:00 PM EDT Office Visit [facility] [address] [place] [phone] Lalo Grove MD [address] [place] [phone] F/u with Dr. Lalo Grove next November - January 06 CHF documented as of this encounter Goals Goal Patient Goal Type Associated Problems Recent Progress Patient-Stated? Author Quit smoking / using tobacco Lifestyle No Ana Vides documented as of this encounter Visit Diagnoses Diagnosis Hypertension, unspecified type documented in this encounter Care Teams Admiralty Lawyer Relationship Specialty Start Date End Date Vanessa Culver MD PCP - General 08/31/14 documented as of this encounter
--- OUTSIDE RECORDS SUMMARY | 2025-09-11 08:55 | XMS_ITS | Data Portability ---
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 [email or web address] Not available 04/23/2025 17:12:06 07/02/2025 07/02/2025 74F with microscopic hematuria. Not available 06/27/2025 21:13:44 Plan of Treatment Reminders Order Date Submit Date Provider Last Modified By Organization Details Last Modified Time Details Appointments None record ed. Lab urinal ysis, dipsti ck, auto 025 04/24/20 [email or web address] Not available 10:09:08 Referral None record ed. Procedures None record ed. Surgeries None record ed. Imaging None record ed. Medication Orders None record ed. Patient TargetsNo targets recorded. Patient Instructions Encounter Date Encounter Id Patient Instructions Last Modified By Organization Details Last Modified Time 04/24/2025 [id number] blood in the urine: care instructions [email or web address] Not available 04/24/2025 10:09:08 07/02/2025 [id number] blood in the urine: care instructions [email or web address] Not available 07/02/2025 13:03:53 Reason for Referral None Reported. Results Created Date Observation Date Name Description Value Unit Range Abnormal Flag Note LastModifiedBy Organization Detail LastModifiedTime 04/24/20 25 04/24/2025 urina lysis , dipst ick, auto Unknown Analyte Negati ve Not Available [facility] [address], [address], 04/24/2025 09:57:46 04/24/20 25 04/24/2025 urina lysis , dipst ick, auto Unknown Analyte negati ve Not Available [facility] [address], [address], 04/24/2025 09:57:46 04/24/20 25 04/24/2025 urina lysis , dipst ick, auto Unknown Analyte Negati ve Not Available [facility] [address], [address], 04/24/2025 09:57:46 04/24/20 25 04/24/2025 urina lysis , dipst ick, auto Unknown Analyte 6 Not Available [facility] [address], [address], 04/24/2025 09:57:46 04/24/20 25 04/24/2025 urina lysis , dipst ick, auto Unknown Analyte Trace Not Available [facility] [address], [address], 04/24/2025 09:57:46 04/24/20 25 04/24/2025 urina lysis , dipst ick, auto Unknown Analyte 1.010 Not Available [facility] [address], [address], 04/24/2025 09:57:46 04/24/20 25 04/24/2025 urina lysis , dipst ick, auto Unknown Analyte Negati ve Not Available [facility] [address], [address], 04/24/2025 09:57:46 04/24/20 25 04/24/2025 urina lysis , dipst ick, auto Unknown Analyte Negati ve Not Available [facility] [address], [address], 04/24/2025 09:57:46 04/24/20 25 04/24/2025 urina lysis , dipst ick, auto Unknown Analyte Negati ve Not Available [facility] [address], [address], 04/24/2025 09:57:46 Result Notes None recorded. Procedures Surgical History Date Name Laterality Status Provider Name and Address Organization Details Recorded Time Cystoscopy - Female completed Zafar Ceja MD [address] [place] [address], [phone] 07/02/2025 13:03:28 Cancer Surgery completed [facility] 04/24/2025 09:51:12 Implantable Pacemaker/Defib rillator/AICD completed [facility] 04/24/2025 09:51:12 Imaging Results None recorded. Procedure Notes None recorded. Medical Equipment None Reported. Allergies No known drug allergies Medications Name Sig Start Date Stop Date Status Note LastModified by Organization Details LastModified Time quetiapine 25 mg tablet TAKE 1 TABLET BY MOUTH EVERY NIGHT AT BEDTIME 04/24 completed Not Available Not Available Not Available atorvastati n 40 mg tablet 04/24 completed Not Available Not Available Not Available buspirone 5 mg tablet 04/24 completed Not Available Not Available Not Available potassium chloride ER 10 mEq capsule,ext ended release active Not Available Not Available Not Available clonidine HCl 0.1 mg tablet active Not Available Not Available Not Available prednisone 10 mg tablet 04/24 completed Not Available Not Available Not Available atorvastati n 20 mg tablet active Not Available Not Available Not Available trazodone 50 mg tablet TAKE 1 TABLET BY MOUTH EVERY NIGHT AT BEDTIME NEEDED FOR INSOMNIA active Not Available Not Available No t Available cefpodoxime 200 mg tablet 04/24 completed Not Available Not Available Not Available azithromyci n 250 mg tablet 04/24 completed Not Available Not Available Not Available cefpodoxime 100 mg tablet 04/24 completed Not Available Not Available Not Available hydroxyzine HCl 50 mg tablet TAKE 1 TABLET BY MOUTH TWICE DAILY NEEDED FOR ANXIETY 04/24 completed Not Available Not Available Not Available amoxicillin 500 mg tablet TAKE 1 TABLET BY MOUTH EVERY 8 HOURS FOR 10 DAYS 04/16 completed Not Available Not Available Not Available lorazepam 0.5 mg tablet TAKE 1 TABLET BY MOUTH TWICE DAILY NEEDED FOR ANXIETY AND PANIC. DO NOT TAKE WITH ANY PAIN MEDICATIO N WITHIN 3-4 HRS active Not Available Not Available No t Available doxycycline monohydrate 100 mg capsule TAKE 1 CAPSULE BY MOUTH 2 TIMES A DAY 04/24 completed Not Available Not Available Not Available levothyroxi ne 50 mcg tablet active Not Available Not Available Not Available cephalexin 500 mg capsule TAKE 1 CAPSULE BY MOUTH THREE TIMES A DAY 04/16 completed Not Available Not Available Not Available buspirone 10 mg tablet TAKE 1 TABLET BY MOUTH THREE TIMES DAILY 04/24 completed Not Available Not Available Not Available lisinopril 10 mg tablet 04/24 completed Not Available Not Available Not Available prednisone 50 mg tablet 04/24 completed Not Available Not Available Not Available gabapentin 300 mg capsule TAKE 1 CAPSULE BY MOUTH EVERY NIGHT 04/24 completed Not Available Not Available Not Available sertraline 25 mg tablet TAKE 1 TABLET BY MOUTH DAILY 04/24 completed Not Available Not Available Not Available hydroxyzine HCl 25 mg tablet TAKE 1 TABLET BY MOUTH DAILY NEEDED FOR ANXIETY active Not Available Not Available No t Available mupirocin 2 % topical ointment APPLY THREE TIMES DAILY TO THE AFFECTED AREA 04/24 completed Not Available Not Available Not Available furosemide 20 mg tablet active Not Available Not Available Not Available gabapentin 100 mg capsule TAKE 1 CAPSULE BY MOUTH TWICE DAILY 04/24 completed Not Available Not Available Not Available metoprolol succinate ER 25 mg tablet,exte nded release 24 hr active Not Available Not Available Not Available ondansetron 4 mg disintegrat ing tablet DISSOLVE 1 TABLET IN THE MOUTH EVERY 6 HOURS NEEDED FOR NAUSEA OR VOMITING active Not Available Not Available No t Available diazepam 5 mg tablet TAKE 1 TABLET BY MOUTH 1 HOUR BEFORE PROCEDURE active Not Available Not Available No t Available amoxicillin 500 mg-potassiu m clavulanate 125 mg tablet TAKE 1 TABLET BY MOUTH THREE TIMES DAILY active Not Available Not Available No t Available Ventolin HFA 90 mcg/actuati on aerosol inhaler INHALE 2 PUFFS EVERY 4 HOURS NEEDED FOR SHORTNESS OF BREATH AND WHEEZING active Not Available Not Available No t Available buspirone 15 mg tablet TAKE 1 TABLET BY MOUTH THREE TIMES DAILY 04/24 completed Not Available Not Available Not Available cyclobenzap rine 5 mg tablet 04/24 completed Not Available Not Available Not Available escitalopra m 5 mg tablet TAKE 1 TABLET BY MOUTH DAILY 04/24 completed Not Available Not Available Not Available quetiapine 50 mg tablet TAKE 1 TABLET BY MOUTH EVERY NIGHT AT BEDTIME 04/24 completed Not Available Not Available Not Available oxycodone 10 mg tablet 04/24 completed Not Available Not Available Not Available buprenorphi ne 2 mg-naloxone 0.5 mg sublingual film START WITH 1/2 FILM UNDER THE TONGUE FOR ONE DOSE ON DAY 1THEN 1/2 FILM TWICE DAILY ON DAY 2 AND INCREASE ACCORDING TO ATTACHED MD INSTRUCTI ONS active Not Available Not Available No t Available buprenorphi ne 8 mg-naloxone 2 mg sublingual film TAKE 1 FILM UNDER THE TONGUE EVERY 8 HOURS X 14 DAYS active Not Available Not Available No t Available Farxiga 10 mg tablet 04/24 completed Not Available Not Available Not Available Entresto 24 mg-26 mg tablet TAKE 1/2 TABLET BY MOUTH IN THE AM AND THE PM active Not Available Not Available No t Available Xtampza ER 36 mg capsule sprinkle 04/24 completed Not Available Not Available Not Available Xtampza ER 9 mg capsule sprinkle 04/24 completed Not Available Not Available Not Available Zenpep 25,000 unit-79,000 unit-105,00 0 unit capsule,del ayed release TAKE 2 CAPSULES BEFORE A MEAL AND AFTER A MEAL EACH MEAL AND 1 BEFORE AND 1 AFTER EACH SNACK FOR TOTAL OF 18 CAPSULES DAILY active Not Available Not Available No t Available Breztri Aerosphere 160 mcg-9mcg-4. 8mcg/actuat ion HFA aerosol inhaler INHALE 2 PUFFS BY MOUTH TWICE DAILY. RINSE AFTER USE active Not Available Not Available No t Available Vitals Date Recorded Body height Body mass index (BMI) Body weight Provider Name and Address Organization Details Last Updated DateTime 04/24/2025 175.26 cm 18.3 kg/m2 10214.45 g Neema Gradyricky [facility] [place] 04/24/2025 09:50:56 Date Recorded Body height Provider Name an d Address Organization Details Last Updated DateTime 07/02/2025 175.26 cm Shereen Willoughby [facility] [place] 07/02/2025 11:43:45 Social History Question Answer Notes LastModified by [employer] Details LastModified Time Tobacco Smoking Status Former Smoker Neema Demricky [facility] 04/24/2025 09:51:09 Do You Have An Advance Directive? No Information not available 04/24/2025 Are You Blind Or Do You Have Difficulty Seeing? No Information not available 04/24/2025 Is Blood Transfusion Acceptable In An Emergency? Yes Information not available 04/24/2025 What Is Your Level Of Caffeine Consumption? Occasional Information not available 04/24/2025 Are You Deaf Or Do You Have Serious Difficulty Hearing? No Information not available 04/24/2025 What Type Of Diet Are You Following? REGULAR Information not available 04/24/2025 When Did You Quit Smoking? 6-10yearssince lastcigarette Information not available 04/24/2025 Which Of Your Hands Is Dominant? Right Information not available 04/24/2025 What Was The Date Of Your Most Recent Tobacco Screening? 07/02/2025 [email or web address] Information not available 07/02/2025 Do You Have Any Pets? Yes Information not available 04/24/2025 What Is Your Relationship Status? Information not available 04/24/2025 How Many Years Have You Smoked Tobacco? 40 Information not available 04/24/2025 Sex: Unknown Functional Status Question Answer Note LastModified by Organizat ion Details LastModified Time Do you use any illicit or recreational drugs? No Information not available 04/24/2025 Do you or have you ever used any other forms of tobacco or nicotine? No Information not available 04/24/2025 What is your level of alcohol consumption? None Information not available 04/24/2025 Are you able to care for yourself independently? Yes Information not available 04/24/2025 Mental Status Question Answer Note LastModified by Organization D etails LastModified Time Do you feel stressed (tense, restless, nervous, or anxious, or unable to sleep at night)? [id number] Information not available 04/24/2025 Family History Relationship Description Onset Age of this Age Resolved Age Notes LastModified by Organization Details LastModified Time Mother Family history of malignant neoplasm [email or web address] Not available 2024 09:51:02 Medical History Condition Response Gastrointestinal Disease (IBS, Gastritis , Ulcer, Acid Reflux) Y Cancer Y COPD (Chronic Obstructive Pulmonary Dise ase) Y Blood in Urine Y Anxiety Y Gynecological History Statement/Question Response Total # of Births 4 Number of Pregnancies? 4 Age at Menarche 11 History of Abnormal Pap Smear? N Abnormal MMG N Number of Miscarriages? 0 Obstetrics History GPAL:G 0 P 0 0 0 0 Past Encounters Encounter ID Performer Location Encounter Start Date Encounter Closed Date Diagnosis/Indication Diagnosis SNOMED-CT Code Diagnosis ICD10 Code Diagnosis IMO Codes Diagnosis Note [id number] Zafar Ceja MD [facility] [address] [facility] [address] [place] [address] 04/24/2025 09:38:04 04/24/2025 10:13:01 Microscopic hematuria 717471363 R31.29 [id number] We had a lengthy discussion re: the etiology and management of microscopi c hematuria based on the AUA guidelines published in 2019. We discussed both benign and malignant causes of microscopi c hematuria. Patients with microscopi c hematuria can be risk stratified into 3 categories : low risk (women aged <50, men aged <40, no smoking history, 3-10 RBCs/HPF, no prior history of microscopi c hematuria) , intermedia te risk (women aged 50-59, men aged 40-59, 10-30 pack history of smoking, 11-25 RBCs/HPF) and high risk (women and men aged >60, >30 pack years of smoking, >25 RBCs/HPF, history of gross hematuria) .She is a residential smoker.Rec ommendatio ns for low risk are repeat UA in 6 months or cystoscopy /renal ultrasound .Recommend ations for intermedia te risk are cystoscopy and renal ultrasound .Recommend ations for high risk are cystoscopy and CT urogram.Im aging orders were placed on today's visit. We will discuss the results of the imaging at the time of the cystoscopy .She already had a CT scan performed. No urogram component but no obvious pathologie s.I discussed with the patient the technical aspects, risk, benefits of cystoscopy . I notified the patient would be conscious for the procedure and that lidocaine jelly would be introduced into the urethra. Then in sterile technique, a flexible cystoscope would be entered into the urethra and the urethra, and bladder would all be evaluated. I discussed the risks of hematuria, infection, and dysuria which can follow after the procedure. A one-time dose of antibiotic s would be administer ed after the procedure which would take several minutes approximat leland. [id number] Zafar Ceja MD [facility] [address] [place] [address] 07/02/2025 10:47:15 07/02/2025 13:09:55 Microscopic hematuria [id number] R31.29 [id number] We discussed the AUA recommenda tions regarding patients with asymptomat ic microscopi c hematuria and a negative evaluation without significan t risk factors. At this juncture, it would be reasonable to repeat annual urinalyses with microscopy . Plan is as follows: 1. The patient should have annual urinalyses with microsrosc opy. If the patient has 2 negative urinalyses , surveillan ce can be discontinu ed. If the patient has persistent asymptomat ic microscopi c hematuria beyond 2 years, repeat hematuria evaluation will be considered . 2. If the patient has gross hematuria, patient should call and we would do a repeat evaluation more urgently. Incomplete emptying of urinary bladder [id number] R33.9 [id number] Bladder looks very trabeculat Tiffanie recommende d she practice timed voiding q2 hours. Health Concerns Section Related Observation LastModified by Organization Detai ls LastModified Time None Recorded Concern Status LastModified by Organization Details LastModified Time None Recorded Advance Directives Directive N: Payers Insurance Date Sequence Insurance Name Policy Number Policy Fisher Covered Member ID Fisher Member ID Guarantor Name 06/28/2025 2 [place] [facility] Mayra Craft [id number] Mayra Craft 06/28/2025 1 [place] [employer] Mayra Craft [id number] Mayra Craft Notes Date Note Type Note Provider Name and Address Organization Details Recorded Time 04/24/2025 text/html 74F with microscopic hematuria.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 Zafar Ceja MD [address] [place] [address], [phone], [facility]. 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 Zafar Ceja MD [address] [place] [address], [phone], [facility] 07/02/2025 13:04:09 OBGyn Episode No OBEpisode recorded.
--- OUTSIDE RECORDS SUMMARY | 2025-09-11 08:55 | XMS_ITS | Encounter Summary ---
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 st Contact Info) Description 05/10/2024 Orders Only [facility] Orthopedic Surgery-Entrance [address] [place] [address] Shivam Trivedi MD [address] [place] [address] Social History Tobacco Use Types Packs/Day Years Used Date Smoking Tobacco: Former Cigarettes 1 40 0 01/19/1977 - 01/31/2017 Smokeless Tobacco: Never Comments:started at age 14 Alcohol Use Standard Drinks/Week Comments No 0 (1 standard drink = 0.6 oz pure alcohol) used to be an alcoholic , sober since 1991 PHQ-2 Answer Date Recorded PHQ-2 Score 0 06/24/2021 [facility] - Occupational [...] Start Date Job End Date 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 Lalo Grove next November - January 06 CHF documented as of this encounter Goals Goal Patient Goal Type Associated Problems Recent Progress Patient-Stated? Author Quit smoking / using tobacco Lifestyle No Ana Vides documented as of this encounter Results * Due to [place] state law, this organization might not be sharing negative HIV tests. * XRAY SPINE, LUMBOSACRAL 2 OR 3 VIEWS (DX: CHRONIC LOW BACK PAIN > 28 DAYS *NO INJURY*) (05/10/2024 10:53 AM EDT) Anatomical Region Laterality Modality Spine Computed Radiogr aphy 05/10/2024 4:00 PM EDT Narrative 05/10/2024 4:00 PM EDT Patient History: Back Pain *No Injury* CONTRAST: Exam: Lumbar spine x-ray three views Comparison: [place] - XRAY SPINE LUMBOSACRAL 2 OR 3 VIEWS (DX: BACK PAIN *NO INJURY* 03/15/2024 10:33 AM EDT Findings: Unchanged L5 compression fracture and grade 1 anterolisthesis L4-5 and L5-S1. No acute fracture. Diffuse osseous demineralization. Unchanged degenerative spondylosis of the lumbar spine, worst at the lumbosacral junction. Soft tissue is grossly normal. Cardiac pacer wires noted. Impression: Stable exam without acute finding. Unchanged L5 compression fracture. Unchanged grade 1 spondylolisthesis L4-5 and L5-S1. Procedure Note Meeta Frazier MD - 05/10/2024 Patient History: Back Pain *No Injury* CONTRAST: Exam: Lumbar spine x-ray three views Comparison: CR/[place] - XRAY SPINE LUMBOSACRAL 2 OR 3 VIEWS (DX: BACK PAIN *NOINJURY* 03/15/2024 10:33 AM EDT Findings: Unchanged L5 compression fracture and grade 1 anterolisthesis L4-5 andL5-S1. No acute fracture. Diffuse osseous demineralization. Unchanged degenerative spondylosis of the lumbar spine, worst at thelumbosacral junction. Soft tissue is grossly normal. Cardiac pacer wires noted. Impression: Stable exam without acute finding. Unchanged L5 compression fracture. Unchanged grade 1 spondylolisthesis L4-5 and L5-S1. Shivam Trivedi MD IMG XRAY NO CONTRAST ORDERABLES Final Result documented in this encounter Visit Diagnoses Diagnosis Low back pain, unspecified back pain laterality, unspecified chronicity, unspecified whether sciatica present Low back pain, unspecified back pain laterality, unspecified chronicity, unspecified whether sciatica present documented in this encounter Care Teams Senior Operations Manager Relationship Specialty Start Date End Date Vanessa Culver MD PCP - General 08/31/14 documented as of this encounter
--- OUTSIDE RECORDS SUMMARY | 2025-09-11 08:55 | XMS_ITS | Encounter Summary ---
Author Organization [facility] Address [address] [place] [address] Care Team Providers Care Tobacco Cloth Reclaimer Name Role Phone Vanessa Culver MD Primary Care Provider [phone] Reason for Visit * Reason Comments Breathing Problem Encounter Details Date Type Department Care Team ([facility] Contact Info) Description 10/10/[address] [phone] Lalo Grove MD [address] [place] [address] [phone] Breathing Problem Social History Tobacco Use Types Packs/Day Years Used Date Smoking Tobacco: Former Cigarettes 1 40 0 01/19/1977 - 01/31/2017 Smokeless Tobacco: Never Comments:started at age 14 Alcohol Use Standard Drinks/Week Comments No 0 (1 standard drink = 0.6 oz pure alcohol) used to be an alcoholic , sober since 1991 PHQ-2 Answer Date Recorded PHQ-2 Score 0 06/24/2021 [facility] Singer of Occupat ional Health - Occupational Stress [...] / family Once a week 06/24/2021 Attend hindu services Never 2020 Club Membership No 06/24/2021 [...] 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 I reviewed her ER records from [facility]. She also had a mechanical fall and had elevated CK and was given IV fluids in early September. The ER visit is not entirely clear but she was given IV Lasix and felt better. She said her oxygen was 88% when EMS came. It may be a mixed picture of COPD and heart failure preserved LV function. I recommend 20 mg of furosemide and a BMP next few weeks. I will get her into my office next week. I spoke to her at length and prescription sent for 20 Mg furosemide * Telephone Encounter - Jonathan Ríos RN - 10/11/2024 2:17 PM EST 10/10/2024 Emergency Summary - [facility]: Discharge Instructions Raquel Hernandez MD - 10/10/2024 6:48 PM EST You were seen in the ER for shortness of breath. We wanted you to be admitted to the hospital but you are leaving AGAINST MEDICAL ADVICE. It is very important you come back if you change your mind orfor any concerns. ===== Routing to Dr. Grove for review: Would you like Pt to f/u sooner than 01/03/2025 OV? Future Appointments Date Time Provider Department Phone 01/03/25 2:00 PM Lalo Grove MD [facility] [phone] 07/10/25 2:00 PM [facility] MAMMOGRAPHY ROOM1 [facility] Mammography [phone] * Telephone Encounter - Cely Perkins - 10/11/2024 1:29 PM EST Patient called in She is extremely upset that MD did not call her yesterday. Patient states hospital wanted to admit her, but she left hospital AMA because she has 8 dogs at home and couldn't leave them alone any longer. Patient adamantly declines being scheduled with CHF clinic. Patient believes Dr. Grove doesn't care about me because he's pushing me off to a doctor I don't know She wants MD to know that she is terrified she cannot breath in the cold air and is only looking todiscuss this with Dr. Grove Patient is asking for a call back from MD today. Please advise * Telephone Encounter - Renetta Craft RN - 10/11/2024 1:18 PM EST Patient calling. Patient went to the ER yesterday due to SOB and left AMA because she had to get home to her dogs. She stated she was given O2 and her sats improved. A chest CT was done and she did not have any PE. She reports a very slight improvement in her symptoms since yesterday. She still has occasional SOB at rest. She is able to speak in complete sentences, however she states she feels winded speaking. Endorses SOB with minimal exertion. She declined a consult in CHF program. Requested VV with Dr. Grove, warm transfer to [facility] to schedule. * Telephone Encounter - Ashanti Srivastava - 10/11/2024 1:15 PM EST Patient called in wanting to speak with a nurse in regards to her message she sent yesterday in regards to her breathing issues. [facility] transferred patient over to nurse * Telephone Encounter - Lalo Grove MD - 10/11/2024 12:44 PM EST Order placed to be seen in CHF clinic. Pt have pt seen there soon * Telephone Encounter - Rosa Smith RN - 10/10/2024 9:03 AM EST Called and spoke with patient. Two patient identifiers confirmed to verify patient identity Patient stated worsening SOB over the last 2 days Patient has COPD Patient stated that she is using her nebulizer and inhaler and denies improvement ins SOB. Patient has a follow up scheduled with progress man on 10/12/2024 Patient does endorse intermittent SOB at rest SAEED increased with very minimal activity. Patient can talk in complete sentences. No wheezing heard, no gasping for air No respiratory distress heard during phone call. Patient stated worsening SOB with laying down flat , this is new for patient in the last 2 days. Patient does not have a pulse ox at home. Patient does not use oxygen at home. Denies dizziness Denies lightheadedness Denies chest pain Denies any edema present. Denies any recent cough or congestion. Weight: 137 pounds, stable Blood pressure: does not have ability to check BP or HR at home Patient stated that her PCP discontinued her Entresto and atorvastatin. Patient unclear as to why these medications were D/C by PCP please advise. Patient has no further questions at this time. Advised patient to call the office back with any further questions or concerns. Patient verbalized understanding and agreed with plan * Telephone Encounter - Courtney Pinzon - 10/10/2024 8:44 AM EST Patient calling stating she is having a hard time breathing. Pt states no chest pain. Pt has COPD. Hard time breathing for the past two days. Please advise. documented in this encounter Plan of Treatment Upcoming Encounters Date Type Department Care Team (Late st Contact Info) Description 12/19/2025 1:00 PM EDT Office Visit [facility] [address] [place] [phone] Lalo Grove MD [address] [place] [phone] F/u with Dr. Lalo Grove next November - January 06 CHF documented as of this encounter Goals Goal Patient Goal Type Associated Problems Recent Progress Patient-Stated? Author Quit smoking / using tobacco Lifestyle No Ana Vides documented as of this encounter Visit Diagnoses Not on filedocumented in this encounter Care Teams Tobacco Cloth Reclaimer Relationship Specialty Start Date End Date Vanessa Culver MD PCP - General 08/31/14 documented as of this encounter
--- OUTSIDE RECORDS SUMMARY | 2025-09-11 08:55 | XMS_ITS | Encounter Summary ---
Author Organization [facility] Address [address] [place] [address] Care Team Providers Care Linemarker Name Role Phone Vanessa Culver MD Primary Care Provider [phone] Reason for Visit * Reason Comments Back Pain 3 week f/u compressi on fracture of L5 Encounter Details Date Type Department Care Team (Late st Contact Info) Description 03/15/2024 Orders Only [facility] Orthopedic Surgery-Entrance [address] [place] [address] Shivam Trivedi MD [address] [place] [address] Social History Tobacco Use Types Packs/Day Years Used Date Smoking Tobacco: Former Cigarettes 1 40 0 01/19/1977 - 01/31/2017 Smokeless Tobacco: Never Comments:started at age 14 Alcohol Use Standard Drinks/Week Comments No 0 (1 standard drink = 0.6 oz pure alcohol) used to be an alcoholic , sober since 1991 PHQ-2 Answer Date Recorded PHQ-2 Score 0 06/24/2021 [facility] Felda of Occupat ional Health - Occupational Stress [...] / family Once a week 06/24/2021 Attend protestant services Never 2020 Club Membership No 06/24/2021 [...] 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 Lalo Grove next November - January 06 CHF documented as of this encounter Goals Goal Patient Goal Type Associated Problems Recent Progress Patient-Stated? Author Quit smoking / using tobacco Lifestyle No Ana Vides documented as of this encounter Results * Due to [place] state law, this organization might not be sharing negative HIV tests. * XRAY SPINE, LUMBOSACRAL 2 OR 3 VIEWS (DX: CHRONIC LOW BACK PAIN > 28 DAYS *NO INJURY*) (03/15/2024 10:44 AM EDT) Anatomical Region Laterality Modality Spine Computed Radiogr aphy 03/15/2024 11:3 4 AM EDT Narrative 03/15/2024 11:34 AM EDT Patient History: Back Pain *No Injury* CONTRAST: 3 views lumbar spine Comparison: CR/IA - XRAY SPINE LUMBOSACRAL 2 OR 3 VIEWS (DX: BACK PAIN *NO INJURY* 02/09/2024 10:27 AM EDT Findings: There is a moderate compression fracture of the L5 vertebral body which appears unchanged. There is anterolisthesis of L4 upon L5 and L5 upon S1 with facet hypertrophic changes at L4-5 and L5-S1. There is mild disc degeneration at L2-L3 and L4-L5 with moderate disc degeneration L5-S1. Overall the findings appear stable compared to prior study. IMPRESSION: No acute findings. Stable moderate compression fracture of L5. Stable lower lumbar facet and multilevel disc degenerative changes. Procedure Note Everette Hawley MD - 03/15/2024 Patient History: Back Pain *No Injury* CONTRAST: 3 views lumbar spine Comparison: CR/IA - XRAY SPINE LUMBOSACRAL 2 OR 3 VIEWS (DX: BACK PAIN *NOINJURY* 02/09/2024 10:27 AM EDT Findings: There is a moderate compression fracture of the L5 vertebral body whichappears unchanged. There is anterolisthesis of L4 upon L5 and L5 upon S1with facet hypertrophic changes at L4-5 and L5-S1. There is mild discdegeneration at L2-L3 and L4-L5 with moderate disc degeneration L5-S1. Overall the findings appear stablecompared to prior study. IMPRESSION: No acute findings. Stable moderate compression fracture of L5. Stablelower lumbar facet and multilevel disc degenerative changes. us Shivam Trivedi MD IMG XRAY NO CONTRAST ORDERABLES Final Result documented in this encounter Visit Diagnoses Diagnosis Low back pain, unspecified back pain laterality, unspecified chronicity, unspecified whether sciatica present Low back pain, unspecified back pain laterality, unspecified chronicity, unspecified whether sciatica present documented in this encounter Care Teams Linemarker Relationship Specialty Start Date End Date Vanessa Culver MD PCP - General 08/31/14 documented as of this encounter
--- OUTSIDE RECORDS SUMMARY | 2025-09-11 08:55 | XMS_ITS | Encounter Summary ---
Author Organization [facility] Address [address] [place] [address] Care Team Providers Care Casting Machine Operator Automatic Name Role Phone Vanessa Culver MD Primary Care Provider Encounter Details Date Type Department Care Team ([facility] Contact Info) Description 04/02/2017 Orders Only [facility] Adult Medicine [address] [place] [phone] Yael Dolan NP Social History Tobacco Use Types Packs/Day Years Used Date Smoking Tobacco: Former Cigarettes 1 40 0 01/19/1977 - 01/31/2017 Smokeless Tobacco: Never Comments:started at age 14 Alcohol Use Standard Drinks/Week Comments No 0 (1 standard drink = 0.6 oz pure alcohol) used to be an alcoholic , sober since 1991 Comments No Sex and Gender Information Value Date Recorded Sex Assigned at Not on file Legal Sex Female 8:31 PM EST Gender Identity Not on file Sexual Orientation Not on file 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 Lalo Grove next November - January 06 CHF documented as of this encounter Goals Goal Patient Goal Type Associated Problems Recent Progress Patient-Stated? Author Quit smoking / using tobacco Lifestyle No Ana Vides documented as of this encounter Visit Diagnoses Not on filedocumented in this encounter Care Teams Casting Machine Operator Automatic Relationship Specialty Start Date End Date Vanessa Culver MD PCP - General 08/31/14 documented as of this encounter
--- OUTSIDE RECORDS SUMMARY | 2025-09-11 08:57 | XMS_ITS | Encounter Summary ---
Author Organization [facility] Address [address] [place] [address] Care Team Providers Care Safety Tech Name Role Phone Vanessa Culver MD Primary Care Provider [phone] Encounter Details Date Type Department Care Team (Late st Contact Info) Description 09/29/2024 [employer] Message [facility] Financial Clearance Department [address] [place] [phone] Mychart, Generic Provider [facility] [place] [phone] No Auth required Social History Tobacco Use Types Packs/Day Years Used Date Smoking Tobacco: Former Cigarettes 2 Q uit: 2017 Smokeless Tobacco: Never Comments:2017 Alcohol Use Standard Drinks/Week Comments Not Currently 0 (1 standard drink = 0.6 oz pur e alcohol) sober twenty years Comments No Sex and Gender Information Value Date Recorded Sex Assigned at Female 04/08/2025 10:26 PM EDT Legal Sex Female 6:39 AM EDT Gender Identity Female 04/08/2025 10:26 PM EDT Sexual Orientation Choose not to disclose 2024 10:51 AM EDT documented as of this encounter Plan of Treatment Not on file documented as of this encounter Visit Diagnoses Not on filedocumented in this encounter Additional Health Concerns Infection On[place] Date Last Indicated Resolved Time R/O Respiratory Virus Infection 10/10/2024 10/10/2024 12:56 PM EST R/O Influenza 10/10/2024 10/10/2024 10/10/2024 12: 56 PM EST COVID-19 - Suspected infection 10/10/2024 10/10/2024 10/10/2024 12:56 PM EST R/O Respiratory Virus Infection 04/09/2025 04/09/2025 2:42 AM EDT R/O Influenza 04/09/2025 04/09/2025 04/09/2025 2:4 2 AM EDT COVID-19 - Suspected infection 04/09/2025 04/09/2025 04/09/2025 2:42 AM EDT documented as of this encounter Care Teams Safety Tech Relationship Specialty Start Date End Date Vanessa Culver MD [address] [place] [address] PCP - General Internal Medicine 05/24/25 documented as of this encounter
--- OUTSIDE RECORDS SUMMARY | 2025-09-11 08:57 | XMS_ITS | Encounter Summary ---
Author Organization [facility] Address [address] [place] [address] Care Team Providers Care Photovoltaic Fabrication Technician Name Role Phone Vanessa Culver MD Primary Care Provider [phone] Encounter Details Date Type Department Care Team (Late Contact Info) Description 03/29/2017 [facility] Only [facility] Adult Medicine [address] [place] [phone] Flo Valdez MD [address] [place] [phone] Social History Tobacco Use Types Packs/Day Years [...] Encounters Date Type Department Care Team (Late Contact Info) Description 12/19/2025 1:00 PM EDT Office Visit [facility] [address] [place] [phone] Lalo Grove MD [address] [place] [phone] (work) F/u with Dr. Lalo Grove next November - January 06 CHF documented as of this encounter Goals Goal Patient Goal Type Associated Problems Recent Progress Patient-Stated? Author Quit smoking / using tobacco Lifestyle No Ana Vides documented as of this encounter Procedures * Due to [place] Connect law, this organization might not be sharing negative HIV tests. Procedure Name Priority Date/Time Associated Diagnosis Comments CBC INCLUDES DIFFERENTIAL AND PLATELET COUNT Routine 03/29/2017 10:49 AM EDT Fatigue, unspecified type THYROID STIMULATING HORMONE (TSH) WITH FREE T4 REFLEX, SERUM Routine 03/29/2017 10:49 AM EDT Fatigue, unspecified type COMPREHENSIVE METABOLIC PANEL WITH GFR Routine 03/29/2017 10:49 AM EDT Fatigue, unspecified type documented in this encounter Results * Due to [place] Connect law, this organization might not be sharing negative HIV tests. * THYROID STIMULATING HORMONE (TSH) WITH FREE T4 REFLEX, SERUM (03/29/2017 10:49 AM EDT) TSH (Thyrotropin) 2.05 0.40 - 4.50 uIU/ml [facility] 03/29/2017 10:4 9 AM EDT 03/29/2017 10:49 AM EDT Narrative [facility] - 03/29/2017 1:17 PM EDT Patient is not fasting Patient's primary care provider is: N/A Testing performed at: [facility], [address] [place] [address], [id number], Electric Tool Repairer: Hung Castellon M.D. Flo Valdez MD LABORATORY Final Res ult [address] [address] DIRECTOR HUNG CASTELLON M.D. * (ABNORMAL) COMPREHENSIVE METABOLIC PANEL WITH GFR (03/29/2017 10:49 AM EDT) Glucose 92 65 - 99 mg/dl [facility] Urea Nitrogen Blood (BUN) 29(H) 7 - 25 mg/dL [facility] Creatinine 0.71 0.50 - 1.16 mg/dL [facility] Sodium 141 136 - 145 mmo/L [facility] Potassium 4.6 3.5 - 5.3 mmol/L [facility] Chloride 101 98 - 107 mmo/L [facility] Calcium 9.6 8.5 - 10.4 mg/dL [facility] Protein Total (Serum) 7.3 6.0 - 8.3 g/dL [facility] Albumin 4.4 3.5 - 5.2 g/dL [facility] Globulin 3 2 - 4 G/DL [facility] Bilirubin Total 0.62 0.00 - 1.20 mg/dL [facility] Alkaline phosphatase 65 33 - 130 U/L [facility] AST (SGOT) 19 <38 U/L [facility] ALT (SGPT) 13 <47 U/L [facility] Carbon dioxide 31 23 - 33 mmol/L [facility] GFR 87 >60 ml/min [facility] Comment:If the patient is Af rican Togolese, please multiply result by 1.210 03/29/2017 10:4 9 AM EDT 03/29/2017 10:49 AM EDT Narrative [facility] - 03/29/2017 1:17 PM EDT Patient is not fasting Patient's primary care provider is: N/A Testing performed at: [facility], [address] [place] [address], [id number], Electric Tool Repairer: Hung Castellon M.D. us Flo Valdez MD LABORATORY Final Res ult [address] [address] DIRECTOR HUNG CASTELLON M.D. * CBC INCLUDES DIFFERENTIAL AND PLATELET COUNT (03/29/2017 10:49 AM EDT) WBC 4.8 3.8 - 10.8 K/uL [facility] Neutrophils # 2.5 1.5 - 7.8 K/uL [facility] Immature Granulocytes # 0.00 0.00 - 0.07 K/uL [facility] Comment:Cells included in IM M GRANS # : Metamyelocytes, Myelocytes and Promyelocytes. Lymphocytes # 1.7 0.9 - 3.9 K/uL [facility] Monocytes # 0.3 0.2 - 1.0 K/uL [facility] Eosinophils # 0.3 0.0 - 0.5 K/uL [facility] Basophils # 0.0 0.0 - 0.2 K/uL [facility] Neutrophils % 51.5 % [facility] Immature Granulocytes % 0.00 % [facility] Comment:Cells included in IM M GRANS % : Metamyelocytes, Myelocytes and Promyelocytes. Lymphocytes % 35.1 % [facility] Monocytes % 6.3 % [facility] Eosinophils % 6.7 % [facility] Basophils % 0.4 % [facility] RBC 4.42 3.80 - 5.10 M/uL [facility] Hemoglobin 13.8 11.7 - 15.5 g/dL [facility] Hematocrit 42.0 35.0 - 45.0 % [facility] MCV 95.0 80.0 - 100.0 fl [facility] MCH 31.2 27.0 - 33.0 pg [facility] MCHC 32.9 32.0 - 36.0 g/dL [facility] RDW 12.9 11.0 - 15.0 % [facility] PLT 179 140 - 400 K/uL [facility] 03/29/2017 10:4 9 AM EDT 03/29/2017 10:49 AM EDT Narrative [facility] - 03/29/2017 11:45 AM EDT Patient is not fasting Patient's primary care provider is: N/A Testing performed at: [facility], [address] [place] [address], [address], Electric Tool Repairer: Hung Castellon M.D. Flo Valdez MD LAB SAME DAY RESULT Final Result [address] [address] DIRECTOR HUNG CASTELLON M.D. documented in this encounter Visit Diagnoses Diagnosis Fatigue, unspecified type documented in this encounter Care Teams Photovoltaic Fabrication Technician Relationship Specialty Start Date End Date Vanessa Culver MD PCP - General 08/31/14 documented as of this encounter
--- OUTSIDE RECORDS SUMMARY | 2025-09-11 08:57 | XMS_ITS | Encounter Summary ---
Author Organization [facility] Address [address] [place] [address] Care Team Providers Care Fisher Weir Name Role Phone Vanessa Culver MD Primary Care Provider [phone] Reason for Visit * Reason Onset Date Comments OT update 07/12/2025 Encounter Details Date Type Department Care Team (Late st Contact Info) Description 07/12/2025 Telephone [facility] Orthopedics [address] [place] [address] BusterHarpreet rae MD [address] [place] [phone] OT update Social History Tobacco Use Types Packs/Day Years Used Date Smoking Tobacco: Former Cigarettes 1.5 54 1 963 - 2017 Smokeless Tobacco: Never Alcohol Use Standard Drinks/Week Comments Never 0 (1 standard drink = 0.6 oz pur e alcohol) Comments No Sex and Gender Information Value Date Recorded Sex Assigned at Female 08/18/2024 3:51 PM EST Legal Sex Female 7:30 AM EST Gender Identity Female 08/18/2024 3:51 PM EST Sexual Orientation Not on file documented as of this encounter Functional Status * Are you deaf or do you have serious difficulty hearing? Answer Date of Assessment Author No 06/29/2025 2:10 PM EDT Nayana Ferrari RN * Are you blind or do you have serious difficulty seeing, even when wearing glasses? Answer Date of Assessment Author No 06/29/2025 2:10 PM EDT Nayana Ferrari RN * Do you have serious difficulty walking or climbing stairs? Answer Date of Assessment Author No 02/21/2025 11:04 AM EDT Ashanti Bragg RN * Do you have difficulty dressing or bathing? Answer Date of Assessment Author No 02/21/2025 11:04 AM EDT Ashanti Bragg RN documented as of this encounter Miscellaneous Notes * Telephone Encounter - Elizabeth Villalpando - 07/12/2025 2:57 PM EDT Good afternoon, Pt will be completing OT once a week for four weeks, her PT is requesting she does the OT at a rehab center because it would be safer there. KENDRA No need to call back, Thank you documented in this encounter Plan of Treatment Upcoming Encounters Date Type Department Care Team (Late st Contact Info) Description 09/11/2025 12:40 PM EST Appointment [facility] Diagnostic Radiology [address] 4th [place] [address] Everette Mccallum PA [address] [place] [address] In Person with Resource 09/11/2025 1:00 PM EST Office Visit [facility] Orthopedics [address] [place] [address] Everette Mccallum PA [address] [place] [address] In Person with Physician Real Estate Legal Secretary documented as of this encounter Goals Goal Patient Goal Type Associated Problems Recent Progress Patient-Stated? Author Autogenera fredi Goal Care Plan Autogenerated Problem No Sasha An documented as of this encounter Visit Diagnoses Not on filedocumented in this encounter Additional Health Concerns Active Problems Noted Date Diagnosed Date Autogenerated Problem 05/08/2025 Infection [place] Date Last Indicated Resolved Time Rule-Out Respiratory Virus 08/07/2025 08/07/2025 1 10/07/2024 6:14 PM EST MRSA 08/23/2025 08/23/2025 documented as of this encounter Care Teams Fisher Weir Relationship Specialty Start Date End Date Vanessa Culver MD [address] [place] [address] PCP - General Internal Medicine 08/18/24 documented as of this encounter
--- OUTSIDE RECORDS SUMMARY | 2025-09-11 08:57 | XMS_ITS | Encounter Summary ---
Author Organization [facility] Address [address] [place] [address] Care Team Providers Care Planogrammer Name Role Phone Vanessa Culver MD Primary Care Provider [phone] Encounter Details Date Type Department Care Team ([facility] Contact Info) Description 03/29/2017 Orders Only [facility] Adult Medicine [address] [place] [address] Vanessa Culver MD [facility] [address] [facility] [address] [place] [address] Social History Tobacco Use Types Packs/Day Years [...] Description 12/19/2025 1:00 PM EDT Office Visit [address] [address] Lalo Grove MD [address] [place] [address] F/u with Dr. Lalo Grove next November - January 06 CHF documented as of this encounter Goals Goal Patient Goal Type Associated Problems Recent Progress Patient-Stated? Author Quit smoking / using tobacco Lifestyle No Ana Vides documented as of this encounter Procedures * Due to [employer] law, this organization might not be sharing negative HIV tests. Procedure Name Priority Date/Time Associated Diagnosis Comments VITAMIN D, 25-HYDROXY, TOTAL, IMMUNOASSAY Routine 03/29/2017 10:49 AM EDT Paresthesias ALBUMIN (MICROALBUMIN), RANDOM URINE, WITH CREATININE Routine 03/29/2017 10:49 AM EDT Essential hypertension HEPATITIS C AB WITH REFLEX TO RNA PCR, SERUM Routine 03/29/2017 10:48 AM EDT Need for hepatitis C screening test BORRELIA BURGDORFERI AB(LYME)(IGG,IGM), WESTERN BLOT Routine 03/29/2017 10:48 AM EDT Pain, joint, multiple sites VITAMIN B12 (CYANOCOBALAMIN), SERUM Routine 03/29/2017 10:48 AM EDT Paresthesias documented in this encounter Results * Due to [employer] law, this organization might not be sharing negative HIV tests. * (ABNORMAL) VITAMIN D, 25-HYDROXY, TOTAL, IMMUNOASSAY (03/29/2017 10:49 AM EDT) VIT D, 25-OH, TOTAL 26(L) >29 ng/mL [facility] Comment: Vitamin D Status 25-OH Vitamin D: Deficiency: <20 ng/mL Insufficiency: 20-29 ng/mL Optimal: > or = 30 ng/mL 03/29/2017 10:4 9 AM EDT 03/29/2017 10:49 AM EDT Narrative [facility] - 03/29/2017 1:17 PM EDT Patient is not fasting Patient's primary care provider is: N/A Testing performed at: [facility], [address] [place] [address], [id number], Operating Theatre Technician: Hung Castellon M.D. Vanessa Culver MD LABORATORY Final Result Performing Organization Address [facility] de Phone Number [address] [address] DIRECTOR HUNG CASTELLON M.D. * ALBUMIN (MICROALBUMIN), RANDOM URINE, WITH CREATININE (03/29/2017 10:49 AM EDT) Albumin (Urine) 1.3 mg/dL [facility] Creatinine (Urine) 88 20 - 320 mg/dL [facility] Albumin/Creatini ne (Urine) 15 <30 mcg/mg [facility] Comment: ADA Definitions: Normal: <30 mcg albumin/mg creatinine Microalbuminuria: 30-299 mcg albumin/mg creatinine Clinical albuminuria: > or equal to 300 mcg albumin/mg creatinine The ADA recommends that at least two of three specimens collected within a 3-6 month period be abnormal before considering a patient to be within a diagnostic category. 03/29/2017 10:4 9 AM EDT 03/29/2017 10:49 AM EDT [facility] - 03/29/2017 12:56 PM EDT Patient is not fasting Patient's primary care provider is: N/A Testing performed at: [facility], [address] [place] [address], [id number], Operating Theatre Technician: Hung Castellon M.D. Vanessa Culver MD LABORATORY Final Result Performing Organization Address [facility] de Phone Number [address] [address] DIRECTOR HUNG CASTELLON M.D. * (ABNORMAL) BORRELIA BURGDORFERI AB(LYME)(IGG,IGM), WESTERN BLOT (03/29/2017 10:48 AM EDT) Borrelia burgdorferi Ab.IgG POSITIVE(A) NEGATIVE [facility] Borrelia burgdorferi 18kD Ab.IgG NON-REACTIVE [facility] Borrelia burgdorferi 23kD Ab.IgG REACTIVE(A) [facility] Borrelia burgdorferi 28kD Ab.IgG NON-REACTIVE [facility] Borrelia burgdorferi 30kD Ab.IgG REACTIVE(A) [facility] Borrelia burgdorferi 39kD Ab.IgG REACTIVE(A) [facility] Borrelia burgdorferi 41kD Ab.IgG REACTIVE(A) [facility] Borrelia burgdorferi 45kD Ab.IgG NON-REACTIVE [facility] Borrelia burgdorferi 58kD Ab.IgG REACTIVE(A) [facility] Borrelia burgdorferi 66kD Ab.IgG NON-REACTIVE [facility] Borrelia burgdorferi 93kD Ab.IgG NON-REACTIVE [facility] Borrelia burgdorferi Ab.IgM NEGATIVE NEGATIVE [facility] Borrelia burgdorferi 23kD Ab.IgM REACTIVE(A) [facility] Borrelia burgdorferi 39kD Ab.IgM NON-REACTIVE [facility] Borrelia burgdorferi 41kD Ab.IgM NON-REACTIVE [facility] Comment: As per CDC criteria, a Lyme disease IgG Immunoblot must show reactivity to at least 5 of 10 specific borrelial proteins to be considered positive; similarly, a positive Lyme disease IgM immunoblot requires reactivity to 2 of 3 specific borrelial proteins. Although considered negative, IgG reactivity to fewer specific borrelial proteins or IgM reactivity to only 1 protein may indicate recent B. burgdorferi infection and warrant testing of a later sample. A positive IgM but negative IgG result obtained more than a month after onset of symptoms likely represents a false- positive IgM result rather than acute Lyme disease. In rare instances, Lyme disease immunoblot reactivity may represent antibodies induced by exposure to other spirochetes. 03/29/2017 10:4 8 AM EDT 03/29/2017 4:28 PM EDT Narrative Resulting Agency Comment [id number] us Vanessa Culver MD LABORATORY Final Result [facility] [address] [place] [address] * HEPATITIS C AB WITH REFLEX TO RNA PCR, SERUM (03/29/2017 10:48 AM EDT) Hepatitis C virus Ab NON-REACTI VE NON-REACT SHARMAINE [facility] Hepatitis C virus Ab Signal/Cutoff 0.06 <1.00 [facility] 03/29/2017 10:4 8 AM EDT 03/29/2017 4:28 PM EDT Narrative Resulting Agency Comment [id number] us Vanessa Culver MD LABORATORY Final Result Performing Organization Address [facility] Co de Phone Number [facility] [address] [place] [address] * VITAMIN B12 (CYANOCOBALAMIN), SERUM (03/29/2017 10:48 AM EDT) Vitamin B12 (Cobalamins) 513 200 - 1100 pg/mL [facility] 03/29/2017 10:4 8 AM EDT 03/29/2017 4:28 PM EDT Narrative Resulting Agency Comment [id number] Vanessa Culver MD LABORATORY Final Result Performing Organization Address [facility] de Phone Number [facility] [address] [place] [address] documented in this encounter Visit Diagnoses Diagnosis Essential hypertension Paresthesias Disturbance of skin sensation Need for hepatitis C screening test Special screening examination for other specified viral diseases Pain, joint, multiple sites Pain in joint, multiple sites documented in this encounter Care Teams Planogrammer Relationship Specialty Start Date End Date Vanessa Culver MD PCP - General 08/31/14 documented as of this encounter
--- OUTSIDE RECORDS SUMMARY | 2025-09-11 08:57 | XMS_ITS | Continuity of Care Document ---
Author Organization [facility] Address [address] [place] [address] Care Team Providers Care Teaseler Name Role Phone SYLVIA OLSON Primary Care Provider Assessment Encounter Date Assessment Date Assessment LastModified by Organization Details LastModified Time 07/02/2025 07/02/2025 74F with microscopic hematuria. Not available 06/27/2025 21:13:44 Plan of Treatment Reminders Order Date Submit Date Provider Last Modified By Organization Details Last Modified Time Details Appointments None record ed. Lab None record ed. Referral None record ed. Procedures None record ed. Surgeries None record ed. Imaging None record ed. Medication Orders None record ed. Patient TargetsNo targets recorded. Patient Instructions Encounter Date Encounter Id Patient Instructions Last Modified By Organization Details Last Modified Time 07/02/2025 [id number] blood in the urine: care instructions Not available 07/02/2025 13:03:53 Reason for Referral None Reported. Procedures Surgical History Date Name Laterality Status Provider Name and Address Organization Details Recorded Time Cystoscopy - Female completed Zafar Ceja MD [address] [place] [address], [phone], [facility] 07/02/2025 13:03:28 Cancer Surgery completed Neema Presley [facility] 04/24/2025 09:51:12 Implantable Pacemaker/Defib rillator/AICD [facility] 04/24/2025 09:51:12 Imaging Results None recorded. [...] t Available Vitals Date Recorded Body height Provider Name an d Address Organization Details Last Updated DateTime 07/02/2025 175.26 cm Shereen Willoughby [facility] 07/02/2025 11:43:45 Social History Question Answer Notes LastModified by Organizat ion Details LastModified Time Tobacco Smoking Status Former Smoker Neema locke [facility] 04/24/2025 09:51:09 Do You Have An Advance [...] anxious, or unable to sleep at night)? [id number] Information not available 04/24/2025 Family History Relationship Description Onset Age of this Age Resolved Age Notes LastModified by Organization Details LastModified Time Mother Family history of malignant neoplasm [email or web address] Not available 2024 09:51:02 Medical History Condition Response Gastrointestinal Disease (IBS, Gastritis , Ulcer, Acid Reflux) Y COPD (Chronic Obstructive Pulmonary Dise ase) Y Cancer Y Blood in Urine Y Anxiety Y [...] ICD10 Code Diagnosis IMO Codes Diagnosis Note [id number] Zafar Ceja MD [facility] [address] [place] [address] 07/02/2025 10:47:15 07/02/2025 13:09:55 Microscopic hematuria 986155947 R31.29 [id number] We discussed the AUA recommenda tions regarding [...] more urgently. Incomplete emptying of urinary bladder [id number] R33.9 72458 Bladder looks very trabeculat Tiffanie recommende d she practice timed voiding q2 hours. Health Concerns Section Related Observation LastModified by Organization Detai ls LastModified Time None Recorded Concern Status LastModified by Organization Details LastModified Time None Recorded Payers Encounter Date Sequence Insurance Name Policy Number Policy Fisher Covered Member ID Fisher Member ID Guarantor Name 07/02/2025 1 [place] [employer] Mayra Craft [id number] Mayra Craft 07/02/2025 2 [place] [facility] Mayra Craft [id number] Mayracuong Craft Notes Date Note Type Note Provider Name and Address Organization Details Recorded Time 07/02/2025 text/html 74F with microscopic hematuria.She was a [facility] smoker.No history of kidney stones.CT scan performed in the EDNo kidney pathology.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 Zafar Ceja MD [address] [place] [address], [phone], [facility] Physician Services [facility]. 07/02/2025 13:04:09 OBGyn Episode No OBEpisode recorded.
--- OUTSIDE RECORDS SUMMARY | 2025-09-11 08:57 | XMS_ITS | Encounter Summary ---
Author Organization [facility] Address [address] [place] [address] Care Team Providers Care Java Security Architect Name Role Phone Vanessa Culver MD Primary Care Provider [phone] Encounter Details Date Type Department Care Team (Late st Contact Info) Description 07/31/2025 Telephone [facility] Orthopedics [facility] [address] [place] [address], 2nd [place] [address] BusterHarpreet rae MD [address] [place] [phone] Social History Tobacco Use Types Packs/Day Years Used Date Smoking Tobacco: Former Cigarettes 1.5 54 1 963 - 2017 Smokeless Tobacco: Never Alcohol Use Standard Drinks/Week Comments Never 0 (1 standard drink = 0.6 oz pur e alcohol) Humiliation, Afraid, Rape, and Kick questionnair e Answer Date Recorded Within the last year, have y ou been afraid of your partner or ex-partner? No 08/02/2025 Emotionally Abused Not on file 08/02/2025 Physically Abused Not on file 08/02/2025 Sexually Abused Not on file 08/02/2025 Overall Financial Resource Strain (CARDIA) Answe r Date Recorded How hard is it for you to pa y for the very basics like food, housing, medical care, and heating? Not very hard 08/02/2025 Hunger Vital Sign Answer Date Recorded Within the past 12 months, y ou worried that your food would run out before you got the money to buy more. Never true 08/02/20 25 Ran Out of Food in the Last Year Not on file 08/02/2025 PRAPARE - Transportation Answer Date Re corded In the past 12 months, has l ack of transportation kept you from medical appointments or from getting medications? No 07/15 In the past 12 months, has l ack of transportation kept you from meetings, work, or from getting things needed for daily living? No 08/02/2025 Housing Stability Vital Sign Answer Maxim e Recorded In the last 12 months, was t here a time when you were not able to pay the mortgage or rent on time? No 08/02/2025 Number of Times Moved in the Last Year Not on fi le 08/02/2025 At any time in the past 12 m [facility], were you homeless or living in a mcc (including now)? No 08/02/2025 [facility] Utilities Answer Date Recorded In the past 12 months has th e electric, gas, oil, or water company threatened to shut off services in your home? No 08/02/2025 Food Insecurity Answer Date Recorded Within the past 12 months, y ou worried that your food would run out before you got the money to buy more. Never true 08/02/20 25 Ran Out of Food in the Last Year Not on file 08/02/2025 Intimate Partner Violence Answer Date R ecorded Emotionally Abused Not on file 08/02/2025 Within the last year, have y ou been afraid of your partner or ex-partner? No 08/02/2025 Physically Abused Not on file 08/02/2025 Sexually Abused Not on file 08/02/2025 Housing Stability Answer Date Recorded Unstable Housing in the Last Year Not on file 08/02/2025 In the last 12 months, was t here a time when you were not able to pay the mortgage or rent on time? No 08/02/2025 [address] of [address] Lived in the Last Year Not on f ile 08/02/2025 AUDIT C Answer Date Recorded How often have you had a dri nk containing alcohol, in the past year? 0 08/02/2025 How many standard drinks con taining alcohol have you had on a typical day when you are drinking, in the past year? 0 1 10/02/2024 How often have you had six o r more drinks on one occasion, in the past year? 0 08/02/2025 Comments No Sex and Gender Information Value [...] Author No 06/29/2025 2:10 PM EDT Nayana Ferrrai RN * Are you blind or do [...] Bragg RN documented as of this encounter Plan of Treatment Upcoming Encounters Date Type Department Care Team (Late st Contact Info) Description 09/11/2025 12:40 PM EST Appointment [facility] Diagnostic Radiology [address] [facility] 4th [place] [address] Everette Mccallum PA [address] [place] [address] In Person with Resource 09/11/2025 1:00 PM EST Office Visit [facility] Orthopedics [address] [facility] [address] [place] [address] Everette Mccallum PA [address] [place] [address] In Person with Physician [address] Office Assistant documented as of this encounter Goals Goal Patient Goal Type Associated Problems Recent Progress Patient-Stated? Author Autogenera fredi Goal Care Plan Autogenerated Problem No Nataliya Sasha Autogenera fredi Goal Care Plan Autogenerated Problem No Elmomarilyn Mini documented as of this encounter Visit Diagnoses Not on filedocumented in this encounter Additional Health Concerns Active Problems Noted Date Diagnosed Date Autogenerated Problem 05/08/2025 Autogenerated Problem 07/31/2025 Infection Onset Date Last Indicated Resolved Time Rule-Out Respiratory Virus 08/07/2025 08/07/2025 1 10/07/2024 6:14 PM EST MRSA 08/23/2025 08/23/2025 documented as of this encounter Care Teams Java Security Architect Relationship Specialty Start Date End Date Vanessa Culver MD [address] [place] [address] PCP - General Internal Medicine 08/18/24 documented as of this encounter
--- OUTSIDE RECORDS SUMMARY | 2025-09-11 08:57 | XMS_ITS | Encounter Summary ---
Author Organization [facility] Address [address] [place] [address] Care Team Providers Care School Age Program Associate Name Role Phone Vanessa Culver MD Primary Care Provider [phone] Reason for Visit * Reason Onset Date Comments Blister 07/20/2025 Encounter Details Date Type Department Care Team (Late st Contact Info) Description 07/20/2025 Telephone [facility] Orthopedics [address], 2nd [place] [address] BusterHarpreet rae MD [address] [place] [phone] Blister Social History Tobacco Use Types Packs/Day Years [...] encounter Miscellaneous Notes * Telephone Encounter - [facility] - 07/20/2025 2:09 PM EST Good afternoon, & Everette, Pt called in to speak with a clinician Stated that there is a broken blister on her right great toe, and she is concerned about it spreading to her surgical shoulder DOS 07/11 [facility]# [id number] [facility] documented in this encounter Plan of Treatment Upcoming Encounters Date Type Department Care Team (Late st Contact Info) Description 09/11/2025 12:40 PM EST Appointment [facility] Diagnostic Radiology [address] [facility] 4th [place] [address] Everette Mccallum PA [address] [place] [phone] In Person with Resource 09/11/2025 1:00 PM EST Office Visit [facility] Orthopedics [address] [facility] [address] [place] [address] Everette Mccallum PA [address] [place] [address] In Person with Physician Structural Analysis Engineer documented as of this encounter Goals Goal Patient Goal Type Associated Problems Recent Progress Patient-Stated? Author Elan rai Goal Care Plan Autogenerated Problem No JulisadionnaSasha castorena documented as of this encounter Visit Diagnoses Not on filedocumented in this encounter Additional Health Concerns Active Problems Noted Date Diagnosed Date Autogenerated Problem 05/08/2025 Infection Onset Date Last Indicated Resolved Time Rule-Out Respiratory Virus 08/07/2025 08/07/2025 1 10/07/2024 6:14 PM EST MRSA 08/23/2025 08/23/2025 documented as of this encounter Care Teams School Age Program Associate Relationship Specialty Start Date End Date Vanessa Culver MD [address] [place] [address] PCP - General Internal Medicine 08/18/24 documented as of this encounter
--- OUTSIDE RECORDS SUMMARY | 2025-09-11 08:57 | XMS_ITS | Encounter Summary ---
Author Organization [facility] Address [address] [place] [address] Care Team Providers Care Hat Checker Name Role Phone Vanessa Culver MD Primary Care Provider [phone] Encounter Details Date Type Department Care Team (Late st Contact Info) Description 09/14/2024 Therapeutic Monitoring Services Message [facility] Financial Clearance Department [address] [place] [phone] Mychart, Generic Provider [facility] [place] [id number] Approval Social History Tobacco Use Types Packs/Day Years [...] Indicated Resolved Time R/O Respiratory Virus Infection 09/15/2024 09/15/2024 5:29 PM EST R/O Influenza 09/15/2024 09/15/2024 09/15/2024 5:2 9 PM EST COVID-19 - Suspected infection 09/15/2024 09/15/2024 09/15/2024 5:29 PM EST R/O Respiratory Virus Infection 10/10/2024 10/10/2024 12:56 PM EST R/O Influenza 10/10/2024 10/10/2024 10/10/2024 12: 56 PM EST COVID-19 - Suspected infection 10/10/2024 10/10/2024 10/10/2024 12:56 PM EST R/O Respiratory Virus Infection 04/09/2025 04/09/2025 2:42 AM EDT R/O Influenza 04/09/2025 04/09/2025 04/09/2025 2:4 2 AM EDT COVID-19 - Suspected infection 04/09/2025 04/09/2025 04/09/2025 2:42 AM EDT documented as of this encounter Care Teams Hat Checker Relationship Specialty Start Date End Date Vanessa Culver MD [address] [place] [address] PCP - General Internal Medicine 05/24/25 documented as of this encounter
--- OUTSIDE RECORDS SUMMARY | 2025-09-11 08:57 | XMS_ITS | Encounter Summary ---
Author Organization [facility] Address [address] [place] [address] Care Team Providers Care Mold Checker Name Role Phone Vanessa Culver MD Primary Care Provider [phone] Encounter Details Date Type Department Care Team (Late st Contact Info) Description 10/15/2022 Orders Only [facility] Gastroenterology [address] [place] [address] Qian Loomis, DO [address] [place] [address] Social History Tobacco Use Types Packs/Day Years [...] documented as of this encounter Care Teams Mold Checker Relationship Specialty Start Date End Date Vanessa Culver MD [address] [place] [address] PCP - General Internal Medicine 05/24/25 documented as of this encounter
--- OUTSIDE RECORDS SUMMARY | 2025-09-11 08:57 | XMS_ITS | Encounter Summary ---
Author Organization [facility] Address [address] [place] [address] Care Team Providers Care Undergraduate Intern Name Role Phone Vanessa Culver MD Primary Care Provider [phone] Encounter Details Date Type Department Care Team ([facility] Contact Info) Description 12/06/2015 Orders Only [facility] Adult Medicine [address] [place] [phone] Gini Boyce NP Social History Tobacco Use Types Packs/Day Years Used Date Smoking Tobacco: Every Day Cigarettes Smokeless Tobacco: Never Comments:started at age 14 [...] Description 12/19/2025 1:00 PM EDT Office Visit [facility] [address] [place] [phone] Lalo Grove MD [address] [place] [phone] F/u with Dr. Lalo Grove next November - January 06 CHF documented as of this encounter Goals Goal Patient Goal Type Associated Problems Recent Progress Patient-Stated? Author Quit smoking / using tobacco Lifestyle No Ana Vides documented as of this encounter Visit Diagnoses Not on filedocumented in this encounter Care Teams Undergraduate Intern Relationship Specialty Start Date End Date Vanessa Culver MD PCP - General 08/31/14 documented as of this encounter
--- OUTSIDE RECORDS SUMMARY | 2025-09-11 08:57 | XMS_ITS | Encounter Summary ---
Author Organization [facility] Address [address] [place] [address] Care Team Providers Care Jet Dyeing Machine Tender Name Role Phone Vanessa Culver MD Primary Care Provider [phone] Encounter Details Date Type Department Care Team (Late Contact Info) Description 11/11/[address] [facility] Adult Medicine [address] [place] [phone] Vanessa Culver MD [facility] [address] [place] [address] Social History Tobacco Use Types Packs/Day Years Used Date Smoking Tobacco: Every Day Cigarettes Comments:started at age 14 Alcohol Use Standard [...] on file documented as of this encounter Progress Notes * Vanessa Culver MD - 11/11/2015 3:13 PM ESTQuick Note: Normal EKG documented in this encounter Plan of Treatment Upcoming Encounters Date Type Department Care Team (Late Contact Info) Description 12/19/2025 1:00 PM EDT Office Visit [facility] [address] [place] [phone] Lalo Grove MD [address] [place] [phone] F/u with Dr. Lalo Grove next November - January 06 CHF Pending Results Name Type Priority Associated Diagnoses Date /Time EKG-USE ONLY IN URGENT CARE/READYMED/OCC MED/SMG/CARDIO OR AGE <18 cardiovascular Routine Essential hypertension 11/11/2015 2:28 PM EST documented as of this encounter Goals Goal Patient Goal Type Associated Problems Recent Progress Patient-Stated? Author Quit smoking / using tobacco Lifestyle No Ana Vides documented as of this encounter Procedures * Due to [place] [employer] law, this organization might not be sharing negative HIV tests. Procedure Name Priority Date/Time Associated Diagnosis Comments EKG-USE ONLY IN READYMED/OCC MED/CARDIO Routine 11/11/2015 2:28 PM EST Essential hypertension CBC (H/H, RBC, INDICES,WBC, PLT) Routine 11/11/2015 2:04 PM EST Fatigue, unspecified type THYROID STIMULATING HORMONE (TSH) WITH FREE T4 REFLEX, SERUM Routine 11/11/2015 2:04 PM EST Fatigue, unspecified type HEMOGLOBIN A1C Routine 11/11/2015 2:04 PM EST Fatigue, unspecified type VITAMIN D, 25-HYDROXY, TOTAL, IMMUNOASSAY Routine 11/11/2015 2:04 PM EST Fatigue, unspecified type ALBUMIN (MICROALBUMIN), RANDOM URINE, WITH CREATININE Routine 11/11/2015 2:04 PM EST Essential hypertension LIPID PANEL WITH REFLEX TO DIRECT LDL Routine 11/11/2015 2:04 PM EST Essential hypertension COMPREHENSIVE METABOLIC PANEL WITH GFR Routine 11/11/2015 2:04 PM EST Fatigue, unspecified type documented in this encounter Results * Due to [place] [employer] law, this organization might not be sharing negative HIV tests. * (ABNORMAL) LIPID PANEL WITH REFLEX TO DIRECT LDL (11/11/2015 2:04 PM EST) Cholesterol 202(H) <200 mg/dL [facility] Triglyceride 58 <150 mg/dL [facility] HDL Cholesterol 86 >40 mg/dL [facility] Comment: NCEP GUIDELINES Desireable >60 mg/dL Borderline 40-59 mg/dL Undesirable <40 mg/dL LDL Cholesterol 104 <130 mg/dL [facility] CHOL/HDL Ratio 2 0 - 5 CALC [facility] 11/11/2015 2:04 PM EST 11/11/2015 2:04 PM EST Narrative [facility] - 11/11/2015 7:11 PM EST non fasting Patient's primary care provider is: N/A Testing performed at: [facility], [address] [place] [id number], Hvac Service Technician: Hung Castellon M.D. us Vanessa Culver MD LABORATORY Final Result Performing Organization Address [facility] de Phone Number [address] [address] DIRECTOR HUNG CASTELLON M.D. * (ABNORMAL) VITAMIN D, 25-HYDROXY, TOTAL, IMMUNOASSAY (11/11/2015 2:04 PM EST) VIT D, 25-OH, TOTAL 21(L) >29 ng/mL [facility] Comment: Vitamin D Status 25-OH Vitamin D: Deficiency: <20 ng/mL Insufficiency: 20-29 ng/mL Optimal: > or = 30 ng/mL 11/11/2015 2:04 PM EST 11/11/2015 2:04 PM EST Narrative [facility] - 11/11/2015 7:11 PM EST non fasting Patient's primary care provider is: N/A Testing performed at: [facility], [address] [place] [address], [id number], Hvac Service Technician: Hung Castellon M.D. us Vanessa Culver MD LABORATORY Final Result Performing Organization Address [facility]/ZIP Co de Phone Number [address] [address] DIRECTOR HUNG CASTELLON M.D. * ALBUMIN (MICROALBUMIN), RANDOM URINE, WITH CREATININE (11/11/2015 2:04 PM EST) Albumin (Urine) 1.8 mg/dL [facility] Creatinine (Urine) 102 20 - 320 mg/dL [facility] Albumin/Creatini ne (Urine) 18 <30 mcg/mg [facility] Comment: ADA Definitions: Normal: <30 mcg albumin/mg creatinine Microalbuminuria: 30-299 mcg albumin/mg creatinine Clinical albuminuria: > or equal to 300 mcg albumin/mg creatinine The ADA recommends that at least two of three specimens collected within a 3-6 month period be abnormal before considering a patient to be within a diagnostic category. 11/11/2015 2:04 PM EST 11/11/2015 2:04 PM EST Narrative [facility] - 11/11/2015 7:33 PM EST non fasting Patient's primary care provider is: N/A Testing performed at: [facility], [address] [place] [address], [id number], Hvac Service Technician: Hung Castellon M.D. us Vanessa Culver MD LABORATORY Final Result Performing Organization Address [facility] de Phone Number [address] [address] DIRECTOR HUNG CASTELLON M.D. * THYROID STIMULATING HORMONE (TSH) WITH FREE T4 REFLEX, SERUM (11/11/2015 2:04 PM EST) TSH (Thyrotropin) 2.04 0.40 - 4.50 uIU/ml [facility] 11/11/2015 2:04 PM EST 11/11/2015 2:04 PM EST Narrative [facility] - 11/11/2015 7:11 PM EST non fasting Patient's primary care provider is: N/A Testing performed at: [facility], [address] [place] [address], [id number], Hvac Service Technician: Hung Castellon M.D. us Vanessa Culver MD LABORATORY Final Result Performing Organization Address [facility] Co de Phone Number [address] [address] DIRECTOR HUNG CASTELLON M.D. * (ABNORMAL) HEMOGLOBIN A1C (11/11/2015 2:04 PM EST) Hemoglobin A1C 5.9(H) <5.7 % Total [facility] Comment: For diagnostic purposes: <5.7 Decreased risk of diabetes 5.7 - 6.4 Increased risk of diabetes >6.5 Consistent with diabetes Diagnosis of diabetes should be confirmed by repeat testing. 11/11/2015 2:04 PM EST 11/11/2015 2:04 PM EST Narrative [facility] - 11/11/2015 3:26 PM EST non fasting Patient's primary care provider is: N/A Testing performed at: [facility], [address] [place] [address], [id number], Hvac Service Technician: Hung Castellon M.D. us Vanessa Culver MD LABORATORY Final Result Performing Organization Address [facility] Co de Phone Number [address] [address] DIRECTOR HUNG CASTELLON M.D. * COMPREHENSIVE METABOLIC PANEL WITH GFR (11/11/2015 2:04 PM EST) Glucose 78 65 - 99 mg/dl [facility] Urea Nitrogen Blood (BUN) 20 7 - 25 mg/dL [facility] Creatinine 0.80 0.50 - 1.16 mg/dL [facility] Sodium 140 136 - 145 mmo/L [facility] Potassium 4.7 3.5 - 5.3 mmol/L [facility] Chloride 100 98 - 107 mmo/L [facility] Calcium 9.5 8.5 - 10.4 mg/dL [facility] Protein Total (Serum) 7.2 6.0 - 8.3 g/dL [facility] Albumin 4.7 3.5 - 5.2 g/dL [facility] Globulin 2 2 - 4 G/DL [facility] Bilirubin Total 0.49 0.20 - 1.50 mg/dL [facility] Alkaline phosphatase 66 33 - 130 U/L [facility] AST (SGOT) 27 <38 U/L [facility] ALT (SGPT) 22 <47 U/L [facility] Carbon dioxide 28 23 - 33 mmol/L [facility] GFR 76 >60 ml/min [facility] Comment:If the patient is Af rican Icelandic, please multiply result by 1.210 11/11/2015 2:04 PM EST 11/11/2015 2:04 PM EST Narrative [facility] - 11/11/2015 7:11 PM EST non fasting Patient's primary care provider is: N/A Testing performed at: [facility], [address] [place] [address], [id number], Hvac Service Technician: Hung Castellon M.D. us Vanessa Culver MD LABORATORY Final Result Performing Organization Address [facility]/State/ZIP Co de Phone Number [address] [address] DIRECTOR HUNG CASTELLON M.D. * CBC (H/H, RBC, INDICES,WBC, PLT) (11/11/2015 2:04 PM EST) WBC 7.1 3.8 - 10.8 K/uL [facility] RBC 4.61 3.80 - 5.10 M/uL [facility] Hemoglobin 14.5 11.7 - 15.5 g/dL [facility] Hematocrit 43.4 35.0 - 45.0 % [facility] MCV 94.1 80.0 - 100.0 fl [facility] MCH 31.5 27.0 - 33.0 pg [facility] MCHC 33.4 32.0 - 36.0 g/dL [facility] RDW 13.2 11.0 - 15.0 % [facility] PLT 186 140 - 400 K/uL [facility] 11/11/2015 2:04 PM EST 11/11/2015 2:04 PM EST Narrative [facility] - 11/11/2015 3:48 PM EST non fasting Patient's primary care provider is: N/A Testing performed at: [facility], [address] [place] [address], [address], Hvac Service Technician: Hung Castellon M.D. us Vanessa Culver MD LAB SAME DAY RESULT Final Resu lt [address] [address] DIRECTOR HUNG CASTELLON M.D. documented in this encounter Visit Diagnoses Diagnosis Fatigue, unspecified type Essential hypertension documented in this encounter Care Teams Jet Dyeing Machine Tender Relationship Specialty Start Date End Date Vanessa Culver MD PCP - General 08/31/14 documented as of this encounter
--- OUTSIDE RECORDS SUMMARY | 2025-09-11 08:57 | XMS_ITS | Encounter Summary ---
Author Organization [facility] Address [address] [place] [address] Care Team Providers Care Biostatistics Professor Name Role Phone Vanessa Culver MD Primary Care Provider [phone] Encounter Details Date Type Department Care Team (Late st Contact Info) Description 02/02/2023 Orders Only [facility] Gastroenterology [address] [place] [address] Qian Loomis, DO [address] [place] [address] Social History Tobacco Use Types Packs/Day Years [...] documented as of this encounter Care Teams Biostatistics Professor Relationship Specialty Start Date End Date Vanessa Culver MD [address] [place] [address] PCP - General Internal Medicine 05/24/25 documented as of this encounter
--- OUTSIDE RECORDS SUMMARY | 2025-09-11 08:57 | XMS_ITS | Encounter Summary ---
Author Organization [facility] Address [address] [place] [address] Care Team Providers Care Client Account Representative Name Role Phone Vanessa Culver MD Primary Care Provider [phone] Encounter Details Date Type Department Care Team (Late st Contact Info) Description 10/01/2022 Orders Only [facility] Gastroenterology [address] [place] [address] Qian Loomis, DO [address] [place], [place] [phone] Other chronic pancreatitis (Primary Dx) Social History Tobacco Use Types Packs/Day Years [...] as of this encounter Visit Diagnoses Diagnosis Other chronic pancreatitis- Primary documented in this encounter Additional Health Concerns Infection [...] documented as of this encounter Care Teams Client Account Representative Relationship Specialty Start Date End Date Vanessa Culver MD [address] [place] [phone] PCP - General Internal Medicine 05/24/25 documented as of this encounter
--- OUTSIDE RECORDS SUMMARY | 2025-09-11 08:57 | XMS_ITS | Encounter Summary ---
Author Organization [facility] Address [address] [place] [address] Care Team Providers Care Bombsight Specialist Name Role Phone Vanessa Culver MD Primary Care Provider [phone] Encounter Details Date Type Department Care Team (Late st Contact Info) Description 10/16/2022 Orders Only [facility] Gastroenterology [address] [place] [address] Qian Loomis, DO [address] [place] [address] Social History Tobacco Use Types Packs/Day Years [...] documented as of this encounter Care Teams Bombsight Specialist Relationship Specialty Start Date End Date Vanessa Culver MD [address] [place] [address] PCP - General Internal Medicine 05/24/25 documented as of this encounter
--- OUTSIDE RECORDS SUMMARY | 2025-09-11 08:57 | XMS_ITS | Clinical Summary ---
Author Organization [facility] Address [address] [place] [address] Care Team Providers Care Clinical Care Leader Name Role Phone Vanessa Culver MD Primary Care Provider [phone] Allergies Active Allergy Reactions Criticality Noted Date Comments Gabapentin Headaches,Other (See Comments) 02/26/2025 Shakes, syncope Psychological Tetracyclines Hives,Rash,Unknown Medium 07/04/2007 In mouth Hives; In mouth Substance with tetracycline structure (substance) Medications budesonide-glycop yr-formoterol 160-9-4.8 mcg/actuation HFAA INHALE 2 PUFFS BY MOUTH TWICE DAILY. RINSE AFTER USE Active aspirin 81 MG EC tablet Take 1 tablet (81 mg total) by mouth in the morning and 1 tablet (81 mg total) before bedtime. 2025 Active Additional Information Patient taking differently:81 mg OralDaily, Morning, Reported on 08/20/2025 ascorbic acid (VITAMIN C) 500 MG tablet Take 1 tablet (500 mg total) by mouth in the morning. Active atorvaSTATin (LIPITOR) 20 MG tablet Take 1 tablet (20 mg total) by mouth at bedtime. Active cholecalciferol (VITAMIN D3) 1,000 unit tablet Take 1 tablet (1,000 Units total) by mouth in the morning. Active cycloSPORINE (RESTASIS) 0.05 % ophthalmic emulsion Administer 1 drop to both eyes in the morning and 1 drop before bedtime. Active sacubitriL-valsar cerna (ENTRESTO) 24 mg-26 mg Tab per tablet Take 0.5 tablets by mouth in the morning and 0.5 tablets before bedtime. Active furosemide (LASIX) 20 MG tablet Take 1 tablet (20 mg total) by mouth 3 times a week (Mon, Wed, Fri). Active ipratropium (ATROVENT) 0.02 % nebulizer solution Take 2.5 mL (0.5 mg total) by nebulization every 8 hours as needed for wheezing. Active levothyroxine (SYNTHROID, LEVOXYL) 50 MCG tablet Take 1 tablet (50 mcg total) by mouth every morning. Active metoprolol ER (TOPROL-XL) 25 MG 24 hr tablet Take 0.5 tablets (12.5 mg total) by mouth in the morning and 0.5 tablets (12.5 mg total) before bedtime. Active mometasone-formot johana (Dulera) 100-5 mcg/actuation inhaler Inhale 2 puffs in the morning and 2 puffs before bedtime. Active omeprazole (PriLOSEC) [address] capsule Take 1 capsule (20 mg total) by mouth every morning. Active PARoxetine (PAXIL) 20 MG tablet Take 1 tablet (20 mg total) by mouth every morning. Active tiotropium bromide (SPIRIVA RESPIMAT) 2.5 mcg/actuation Mist inhalation Inhale 2 puffs in the morning. Active albuterol HFA (VENTOLIN HFA) 90 mcg/actuation aerosol inhaler Inhale 2 puffs every 4 hours as needed for wheezing or shortness of breath. Active polyethylene glycol (MIRALAX) 17 gram packet Take 1 packet (17 g total) by mouth daily as needed (first line). Active bisacodyl (DULCOLAX) 5 mg EC tablet Take 2 tablets (10 mg total) by mouth daily as needed for constipation (3rd line; Give 12 hours after magnesium hydroxide for unrelieved constipation). Active acetaminophen (TYLENOL) 500 MG tablet Take 2 tablets (1,000 mg total) by mouth every 6 hours as needed for pain. Active apixaban (ELIQUIS) 5 mg TabIndications:Tr eatment of VTE (acute) Take 1 tablet (5 mg total) by mouth in the morning and 1 tablet (5 mg total) before bedtime. Do all this for 163 doses. 2025 Active calcium carbonate (TUMS) 200 mg calcium (500 mg) chewable tablet Chew 1 tablet (500 mg total) 3 times a day as needed for heartburn. Active ipratropium-albut Johana (DUONEB) 0.5-2.5 mg/3 mL nebulizer Take 3 mL by nebulization every 6 hours as needed for wheezing. Active lidocaine HCL (URO-JET) 2 % JelP Insert 5 mL into the urethra as needed (For patient comfort) for up to 1 dose. Active methocarbamoL (ROBAXIN) 500 MG tablet Take 1 tablet (500 mg total) by mouth in the morning and 1 tablet (500 mg total) at noon and 1 tablet (500 mg total) in the evening and 1 tablet (500 mg total) before bedtime. Active ondansetron (ZOFRAN-ODT) 4 MG disintegrating tablet Take 1 tablet (4 mg total) by mouth every 8 hours as needed for nausea. Active sennosides (SENOKOT) 8.6 mg tablet Take 2 tablets (17.2 mg total) by mouth in the morning and 2 tablets (17.2 mg total) before bedtime. Active lidocaine 4 % PtMd patch Place 2 patches on the skin in the morning. Active ZENPEP 25,000-79,000- 105,000 unit CpDR Take 2 capsules (50,000 units of lipase total) by mouth in the morning and 2 capsules (50,000 units of lipase total) at noon and 2 capsules (50,000 units of lipase total) in the evening. Take with meals. Two capsules before meals One capsule before and after snack. 200 capsule 2025 Active acetaminophen (TYLENOL) 500 MG tablet Take 2 tablets (1,000 mg total) by mouth every 6 hours. Active pregabalin (LYRICA) 100 MG capsuleIndication s:Acute on chronic hypoxic respiratory failure (CMS-HCC) Take 1 capsule (100 mg total) by mouth in the morning and 1 capsule (100 mg total) before bedtime. Do all this for 7 days. 14 capsule 2025 Active buprenorphine-nal oxone (SUBOXONE) 8-2 mg FilmIndications:A cute pain of left shoulder Place 1 Film under the tongue in the morning and 1 Film in the evening and 1 Film before bedtime. Do all this for 7 days. 21 Film 2025 Active LORazepam (ATIVAN) 0.5 MG tabletIndications :Anxiety Take 1 tablet (0.5 mg total) by mouth 2 times a day as needed for anxiety for up to 7 days. 14 tablet 2025 Active mometasone-formot johana (Dulera) 100-5 mcg/actuation inhaler Inhale 2 puffs in the morning and 2 puffs before bedtime. Active oxyCODONE (ROXICODONE) 15 MG immediate release tabletIndications :Acute pain of left shoulder Take 1 tablet (15 mg total) by mouth every 4 hours as needed for pain for up to 4 days. 24 tablet 2025 Active bisacodyl (DULCOLAX) 10 mg suppository Insert 1 suppository (10 mg total) into the rectum daily as needed for constipation. Active Multivitamin with Minerals tablet Take 1 tablet by mouth in the morning. Active ibuprofen (MOTRIN) 800 MG tablet Take 1 tablet (800 mg total) by mouth every 8 hours as needed for pain. 2024 Discontinued(S top taking at Discharge) ZENPEP 25,000-79,000- 105,000 unit CpDR Take 2 capsules (50,000 units of lipase total) by mouth and refer to additional instructions. Two capsules before meals One capsule before and after snack 023 2024 Discontinued diazePAM (VALIUM) 5 MG tablet TAKE 1 TABLET BY MOUTH 1 HOUR BEFORE PROCEDURE 2024 Discontinued(S top taking at Discharge) potassium chloride ER (MICRO-K) 10 MEQ ER capsule Take 1 capsule (10 mEq total) by mouth in the morning. 2024 Discontinued(S top taking at Discharge) acetaminophen (TYLENOL) 500 MG tablet Take 2 tablets (1,000 mg total) by mouth in the morning and 2 tablets (1,000 mg total) in the evening and 2 tablets (1,000 mg total) before bedtime. 2024 Discontinued ALPRAZolam (XANAX) 0.5 MG tabletIndications :Traumatic arthropathy, right shoulder Take 1 tablet (0.5 mg total) by mouth daily as needed for anxiety (prior to dental procedures). 2024 Discontinued(S top taking at Discharge) buprenorphine-nal oxone (SUBOXONE) 8-2 mg FilmIndications:T raumatic arthropathy, right shoulder Place 1 Film under the tongue in the morning. 2024 Discontinued(S top taking at Discharge) calcium carbonate (TUMS) 200 mg calcium (500 mg) chewable tablet Chew 1 tablet (500 mg total) in the morning. 2024 Discontinued(S top taking at Discharge) LORazepam (ATIVAN) 0.5 MG tabletIndications :Traumatic arthropathy, right shoulder Take 1 tablet (0.5 mg total) by mouth in the morning and 1 tablet (0.5 mg total) before bedtime. 2024 Discontinued(S top taking at Discharge) ffjlcz-ychcnikh-r mylase, pork, (CREON) 24,000-76,000 -120,[address] capsule Take 2 capsules (48,000 units of lipase total) by mouth in the morning and 2 capsules (48,000 units of lipase total) at noon and 2 capsules (48,000 units of lipase total) in the evening. Take with meals. 2024 Discontinued sulfamethoxazole- trimethoprim (BACTRIM DS) 800-160 mg per tablet Take 1 tablet (160 mg of trimethoprim total) by mouth in the morning and 1 tablet (160 mg of trimethoprim total) before bedtime. Do all this for 4 doses. 4 tablet 2024 oxyCODONE (ROXICODONE) 5 MG immediate release tabletIndications :Traumatic arthropathy, right shoulder Take 1 tablet (5 mg total) by mouth every 4 hours as needed for pain. 10 tablet 2024 Discontinued(S top taking at Discharge) apixaban (ELIQUIS) 5 mg TabIndications:Tr eatment of VTE (acute) Take 1 tablet (5 mg total) by mouth in the morning and 1 tablet (5 mg total) before bedtime. 60 tablet 2024 Discontinued(C ost of medication) buprenorphine-nal oxone (SUBOXONE) 8-2 mg FilmIndications:A cute pain of left shoulder Place 1 Film under the tongue in the morning and 1 Film in the evening and 1 Film before bedtime. 2024 Discontinued LORazepam (ATIVAN) 0.5 MG tabletIndications :Anxiety Take 1 tablet (0.5 mg total) by mouth 2 times a day as needed for anxiety. 2024 Discontinued oxyCODONE (ROXICODONE) 15 MG immediate release tabletIndications :Acute pain of left shoulder Take 1 tablet (15 mg total) by mouth every 4 hours as needed for pain for up to 4 days. 24 tablet 2024 Discontinued pregabalin (LYRICA) 75 MG capsuleIndication s:Acute pain of left shoulder Take 1 capsule (75 mg total) by mouth in the morning and 1 capsule (75 mg total) before bedtime. 2024 Discontinued(S top taking at Discharge) otbscd-cvbiatmi-o mylase, pork, (CREON) 24,000-76,000 -120,[address] capsule Take 2 capsules (48,000 units of lipase total) by mouth in the morning and 2 capsules (48,000 units of lipase total) at noon and 2 capsules (48,000 units of lipase total) in the evening. Take with meals. 180 capsule 025 2024 Discontinued nalghy-kwpbkaml-m mylase, pork, (CREON) 24,000-76,000 -120,[address] capsule Take 2 capsules (48,000 units of lipase total) by mouth in the morning and 2 capsules (48,000 units of lipase total) at noon and 2 capsules (48,000 units of lipase total) in the evening. Take with meals. 025 2024 Discontinued nmumyn-zxgotfkq-p mylase, pork, (CREON) 24,000-76,000 -120,[address] capsule Take 2 capsules (48,000 units of lipase total) by mouth in the morning and 2 capsules (48,000 units of lipase total) at noon and 2 capsules (48,000 units of lipase total) in the evening. Take with meals. 180 capsule 025 2024 Discontinued(S top taking at Discharge) Active Problems Problem Noted Date Diagnosed Date Closed comminuted fracture o f left humerus, initial encounter 08/20/2025 Acute on chronic hypoxic respiratory failure 03/2025 Chronic HFrEF (heart failure with reduced ejection fraction) 08/19/2025 Acute deep vein thrombosis ( DVT) of axillary vein of right upper extremity 08/19/2025 Moderate malnutrition 08/19/2025 Chronic hypoxic respiratory failure 08/19/2025 Myelopathy 08/19/2025 Mechanical failure of prosth etic joint, subsequent encounter 08/01/2025 S/P reverse total shoulder arthroplasty, right 1 09/30/2024 Substance use 07/06/2025 Heart failure 07/06/2025 Supplemental oxygen dependent 07/06/2025 Alcohol use 07/06/2025 Chronic pancreatitis 07/05/2025 Chronic, continuous use of opioids 02/26/2025 GERD (gastroesophageal reflux disease) History of general anesthesia 02/26/2025 Traumatic arthropathy, right shoulder 12/08/2024 Prediabetes 06/29/2024 Major depressive disorder, recurrent episode, mo derate 05/30/2024 Pacemaker 07/22/2023 Sick sinus syndrome 06/18/2023 Cardiomyopathy 06/10/2023 Atherosclerosis of coronary artery of [place] heart without angina pectoris 12/17/2022 Malignant neoplasm of left lung 11/12/2022 Adenomatous polyp of ascending colon 05/19/2022 Uncomplicated opioid dependence 11/04/2021 Overview (02/26/2025): Refer to [facility] OV 11/04/21: Encounter diagnosis: Uncomplicated opioid dependence (CMS/HCC) (Primary Dx); Refer to [facility] OV 11/04/21: Encounter diagnosis: Uncomplicated opioid dependence (CMS/HCC) (Primary Dx); Ascending aorta dilatation 08/05/2021 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 [place] sewhere 04/03/2021 Overview (02/26/2025): Considered immunosuppressed due to dx COPD 01/31/20 PCP Note: copd , stable , refilled ventolin , reviewed with pt to use symbicort as her maintenance inhaler twice Hypothyroidism 01/16/2021 NSVT (nonsustained ventricular tachycardia) 12/2019 Moderate mitral regurgitation 09/28/2019 Rectus sheath hematoma 08/03/2019 Hypertension 02/09/2019 Former smoker 10/18/2017 Generalized anxiety disorder 05/27/2017 Adenocarcinoma of left lung 04/19/2017 Hx of cancer of lung 04/08/2017 Centrilobular emphysema 01/19/2017 Temporomandibular joint disorder 02/21/2010 TIA (transient ischemic attack) 02/21/2010 Chronic obstructive pulmonary disease 02/26/2009 Overview (02/26/2025): Considered immunosuppressed due to dx COPD 01/31/20 PCP Note: copd , stable , refilled ventolin , reviewed with pt to use symbicort as her maintenance inhaler twice Tobacco dependence 02/26/2009 Encounters Date Type Department Care Team Description 09/07/2025 Telephone [facility] Neurology [facility] [address], 8th [place] [address] Jorge Piña MD Neurologic Problem 09/05/2025 Documentation [facility] [address] [place] [address] Jp Pascual MD 08/20/2025 Telephone [facility] Orthopedics [facility] [address], 2nd [place] [address] Harpreet Goins MD pt's daughter is calling about her, she is in ED at [facility] B 08/19/2025 4:51 PM EST - 09/10/2025 5:30 PM EST Hospital Encounter [address] [facility], 12th [place] [address] Shelley Roblero MD Doodlesack, Amanda L, MD Colucci, Joseph, MD Liu, David Y, DO Zhu, Kaiwen, MD Agarwal, Nikita, MD Grochowsky, Jared, MD Yap, Chandler, MD Courtade, Kirsten, MD Acute pain of left shoulder (Primary Dx); Pain; Acute hypoxic respiratory failure (CMS-HCC); Chest pain, unspecified type; Urinary retention; Wrist drop, acquired, right; Anxiety; Chronic systolic heart failure (CMS-HCC); Acute on chronic hypoxic respiratory failure (CMS-HCC) Discharge Disposition: Long-Term Facility 08/19/2025 Travel 08/14/2025 2:20 PM EST Office Visit [facility] [address] [facility] [address] [place] [address] Everette Mccallum PA S/P reverse total shoulder arthroplasty, right (Primary Dx); Mechanical failure of prosthetic joint, subsequent encounter; S/P shoulder hemiarthroplasty, right 08/14/2025 2:00 PM EST - 08/14/2025 11:59 PM EST Hospital Encounter [facility] [address] 4th [place] [address] Everette Mccallum PA Mechanical failure of prosthetic joint, subsequent encounter; S/P shoulder hemiarthroplasty, right Discharge Disposition: Home or Self Care 08/02/2025 Travel 08/01/2025 6:45 PM EST - 08/01/2025 10:00 PM EST Surgery [address], [address] [place] [address] Harpreet Goins MD REVISION RIGHT REVERSE TOTAL SHOULDER ARTHROPLASTY, POSSIBLE HEMIARTHROPLASTY 08/01/2025 3:52 PM EST Anesthesia Event [address], [address] [place] [address] Favian Falk MD Hogan, James, CRNA 08/01/2025 11:57 AM EST - 08/10/2025 1:58 PM EST Hospital Encounter [facility] [address] 5th [place] [address] Harpreet Goins MD Traumatic arthropathy, right shoulder (Primary Dx); S/P reverse total shoulder arthroplasty, right; Shortness of breath Discharge Disposition: Long-Term Facility 07/31/2025 3:12 PM EST - 07/31/2025 11:59 PM EST Hospital Encounter [facility] [address] [facility] [address] [place] [address] Everette Mccallum PA Deangelis, Joseph, MD Traumatic arthropathy, right shoulder Discharge Disposition: Home or Self Care 07/31/2025 2:21 PM EST - 07/31/2025 3:11 PM EST Hospital Encounter [facility] [address] [facility] [address] [place] [address] Everette Mccallum PA Deangelis, Joseph, MD Traumatic arthropathy, right shoulder; S/P reverse total shoulder arthroplasty, right Discharge Disposition: Home or Self Care 07/31/2025 1:40 PM EST Office Visit [facility] [address] [place] [address] [address] [place] [address] Everette Mccallum PA Deangelis, Joseph, MD Traumatic arthropathy, right shoulder (Primary Dx); S/P reverse total shoulder arthroplasty, right 07/31/2025 Telephone [facility] Orthopedics [address], [address] [place] [address] Harpreet Goins MD 07/20/2025 Telephone [facility] Orthopedics [address] [address] Harpreet Goins MD Blister 07/13/2025 Telephone [facility] [address]opedic[address] [address] Harpreet Goins MD returning phone call 07/13/2025 Telephone [facility] [address]opedic[address] [address] Harpreet Goins MD OT and nurse unable to reach/treat patient 07/12/[address] [address] Harpreet Goins MD OT update 07/11/2025 1:54 PM EDT Anesthesia Event [address] [address] Sai Guajardo MD Katsiampoura, Anastasia, MD 07/11/2025 1:15 PM EDT - 07/11/2025 3:15 PM EDT Surgery [address] [address] Harpreet Goins MD RIGHT REVERSE TOTAL SHOULDER 07/11/2025 11:13 AM EDT - 07/11/2025 8:05 PM EDT Hospital Encounter [address] [address] Harpreet Goins MD Traumatic arthropathy, right shoulder (Primary Dx); Substance use Discharge Disposition: Home or Self Care 07/06/2025 7:45 AM EDT Clinical Support [facility] Pre-Admission Testing [address] [address] Traumatic arthropathy, right shoulder (Primary Dx); Encounter for other preprocedural examination 07/05/2025 Telephone [facility] [address]opedic[address] [address] Harpreet Goins MD Surgery question 06/29/2025 11:30 AM EDT Clinical Support [facility] Pre-Admission Testing [address], 1st [place] [address] 06/29/2025 Travel from Last 3 Months Social History Tobacco Use Types Packs/Day Years Used Date Smoking Tobacco: Former Cigarettes 1.5 54 1 963 - 2017 Smokeless Tobacco: Never Tobacco Cessation:Counseling Given: Not Answered Alcohol Use Standard Drinks/Week Comments Never 0 [...] and Family Not on file 08/23/2025 Attends [employer] Not on file 08/23 Active Member [...] the Last Year Not on file 2024 [facility] Utilities Answer Date Recorded In the [...] PM EST Sexual Orientation Not on file Last Filed Vital Signs Vital Sign Reading [...] Mass Index 21.04 08/20/2025 4:29 AM EST Plan of Treatment Upcoming Encounters Date Type Department Care Team (Late st Contact Info) Description 09/11/2025 12:40 PM EST Appointment [facility] [address] [facility] 4th [place] [address] Everette Mccallum PA [address] [place] [address] In Person with Resource 09/11/2025 1:00 PM EST Office Visit [facility] [address] [address] [facility] [address] [place] [address] Everette Mccallum PA [address] [place] [address] In Person with Physician Hot Plate Ply[employer] 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 Health Maintenance Due Date Last Done Comments Depression Screening 1960 Hepatitis C Screening 1966 Zoster Vaccine (1 of 2) 04/23/2009 02/26/2009 Medicare Initial AWV [id number] 10/14/2014 COVID-19 Vaccine ( season) 2025 09/22/2021, 09/22/2021, 11/23/2020, Additional history exists Influenza Vaccine (#1) 2025 , 07/06/2019, 08/30/2017, Additional history exists Lipid Panel 12/28/2025 12/28/2024, 12/12, 06/20/2024, Additional history exists Lung Cancer Screening 05/28/2026 05/28/2025 , 04/09/2025, 10/10/2024, Additional history exists TSH Level 08/26/2026 08/26/2025, 07/15, 03/13/2025, Additional history exists Blood Pressure 09/10/2026 09/10/2025 DTaP,Tdap,and Td Vaccines (5 - Td or Tdap) 04/03/2031 04/03/2021, 03/30/2011, 02/28/2008, Additional history exists Osteoporosis Screening Completed 08/03/2016, 2015 Breast Cancer Screening Discontinued 05/04/20, 05/04/2023, 05/01/2022, Additional history exists Pneumococcal Vaccine: 50+ Years Completed 05/30/2024, 11/20/2016, 12/09/2015, Additional history exists Meningococcal B Vaccines Aged Out No longer eligible based on patient's age to complete this topic Meningococcal Vaccines Aged Out No lo nger eligible based on patient's age to complete this topic Goals Goal Patient Goal Type Associated Problems Recent Progress Patient-Stated? Author Autogenera rai Goal Care Plan Autogenerated Problem No Sasha An Autogenera rai Goal Care Plan Autogenerated Problem No [employer], Mini Medical Devices Implanted Type Area Nurse Specialist Device Identifier Shelf Expiration Date Model / Serial / Lot Screw Canc Inv/Rev [id number] ([id number]) - [id number] Implanted:Qty : 1 on 07/11/2025 by Harpreet Goins MD at [facility] Bone screws or pegs Right: Shoulder [employer] () [id number] 11/05/2027 [id number] / / [id number] Screw Bone 4.5 X 36 Cancellous ([id number]) - [id number] Implanted:Qty : 1 on 07/11/2025 by Harpreet Goins MD at [facility] Bone screws or pegs Right: Shoulder [employer] (WD) [id number] 12/08/2027 [id number] / / [id number] Glenoid Plate 4349-015-00 ([id number]) - [id number] Implanted:Qty : 1 on 07/11/2025 by Harpreet Goins MD at [facility] Glenoid fixation components Right: Shoulder [employer] () [id number] 05/29/2035 [id number] / / [id number] Zim. Shoulder Ac Connector ([id number]) - [id number] Implanted:Qty : 1 on 08/01/2025 by Harpreet Goins MD at [facility] Glenoid fixation components Right: Shoulder [employer] () [id number] 03/07/2029 [id number] / / [id number] Glenosphere [id number] 1 ([id number]) - [id number] Implanted:Qty : 1 on 07/11/2025 by Harpreet Goins MD at [facility] Glenoid spheres Right: Shoulder [employer] () [id number] 03/26/2035 [id number] / / [id number] Biomet Std Head Adaptor ([id number]) - [id number] Implanted:Qty : 1 on 08/01/2025 by Harpreet Goins MD at [facility] Humeral heads Right: Shoulder [employer] () [id number] 01/30/2035 [id number] / / [id number] Versa-Dial [id number] Hum Head ([id number]) - [id number] Implanted:Qty : 1 on 08/01/2025 by Harpreet Goins MD at [facility] Humeral heads Right: Shoulder [employer] () [id number] 11/04/2031 [id number] / / [id number] Cup Humeral 01.13733.100 ([id number]) - [id number] Implanted:Qty : 1 on 07/11/2025 by Harpreet Goins MD at [facility] Humeral insert liners or cups Right: Shoulder [employer] () [id number] 04/05/2030 [id number] / / [id number] Insert Humeral 01.28849.360 ([id number]) - [id number] Implanted:Qty : 1 on 07/11/2025 by Harpreet Goins MD at [facility] Humeral insert liners or cups Right: Shoulder [employer] () [id number] 02/07/2030 [id number] / / [id number] Stem Ts-Humeral X12-1 Uncemented ([id number]) - [id number] Implanted:Qty : 1 on 07/11/2025 by Harpreet Goins MD at [facility] Humeral stems Right: Shoulder [employer] () [id number] 12/11/2025 01.24467.123 / / [id number] Pacemaker Pacemaker Left: Chest Procedures Procedure Name Priority Date/Time Associated Diagnosis [...] FUNCTION PANEL Timed 09/07/2025 6:31 AM EST C-REACTIVE PROTEIN Routine 09/06/2025 11:45 AM EST ZINC, SERUM Routine 09/06/2025 11:45 AM EST VITAMIN B12 Routine 09/06/2025 11:44 AM EST METHYLMALONIC ACID Routine 09/06/2025 11:44 AM EST VITAMIN A (RETINOL) Routine 09/06/2025 11:44 AM EST IRON PROFILE Routine 09/04/2025 4:03 AM EST HS TROPONIN T STAT 09/04/2025 4:03 AM EST RENAL FUNCTION PANEL Timed 09/04/2025 4:03 AM EST C-REACTIVE PROTEIN Timed 09/04/2025 4: 03 AM EST CBC Timed 09/04/2025 4:03 AM EST ECG 12-LEAD STAT 09/04/2025 3:43 AM EST Chest pain, unspecified type RENAL FUNCTION PANEL Timed 09/03/2025 5:39 AM EST C-REACTIVE PROTEIN Timed 09/03/2025 5: 39 AM EST CBC Timed 09/03/2025 5:39 AM EST RENAL FUNCTION PANEL Timed 09/02/2025 6:06 AM EST C-REACTIVE PROTEIN Timed 09/02/2025 6: 06 AM EST CBC Timed 09/02/2025 6:06 AM EST RENAL FUNCTION PANEL Timed 09/01/2025 5:36 AM EST C-REACTIVE PROTEIN Timed 09/01/2025 5: 36 AM EST CBC Timed 09/01/2025 5:36 AM EST RENAL FUNCTION PANEL Timed 08/31/2025 5:44 AM EST C-REACTIVE PROTEIN Timed 08/31/2025 5: 44 AM EST CBC Timed 08/31/2025 5:44 AM EST CBC Timed 08/30/2025 5:30 AM EST RENAL FUNCTION PANEL Timed 08/30/2025 5:28 AM EST C-REACTIVE PROTEIN Timed 08/30/2025 5: 28 AM EST VITAMIN D,25OH Routine 08/29/2025 6:24 AM EST RENAL FUNCTION PANEL Timed 08/29/2025 6:24 AM EST C-REACTIVE PROTEIN Timed 08/29/2025 6: 24 AM EST CBC Timed 08/29/2025 6:24 AM EST XR PORTABLE CHEST 1 VW Routine 08/28/2025 3:47 PM EST XR HUMERUS 2 VW+ RIGHT Routine 08/28/2025 3:47 PM EST XR SHOULDER 2+ VW LEFT Routine 08/28/2025 10:56 AM EST RENAL FUNCTION PANEL Timed 08/28/2025 5:36 AM EST C-REACTIVE PROTEIN Timed 08/28/2025 5: 36 AM EST CBC Timed 08/28/2025 5:36 AM EST IR NON TUNNELED VASCULAR CATHETER Routine 08/27/2025 1:36 PM EST CBC Timed 08/27/2025 8:18 AM EST RENAL FUNCTION PANEL Timed 08/27/2025 8:17 AM EST C-REACTIVE PROTEIN Timed 08/27/2025 8: 17 AM EST CBC AND DIFFERENTIAL Routine 08/26/2025 11:37 AM EST T4, FREE Routine 08/26/2025 11:37 AM EST TSH Routine 08/26/2025 11:37 AM EST CBC AND DIFFERENTIAL Routine 08/26/2025 11:37 AM EST RENAL FUNCTION PANEL Routine 08/26/2025 11:37 AM EST C-REACTIVE PROTEIN Routine 08/26/2025 11:37 AM EST URIC ACID, RANDOM URINE Routine 08/26/2025 1:55 AM EST UREA NITROGEN, URINE Routine 08/26/2025 1:55 AM EST CREATININE, URINE, RANDOM Routine 08/26/2025 1:55 AM EST OSMOLALITY, URINE Routine 08/26/2025 1:5 5 AM EST SODIUM, URINE, RANDOM Routine 08/26/2025 1:55 AM EST XR PORTABLE ABDOMEN Routine 08/25/2025 3 :33 PM EST VANCOMYCIN, TROUGH Routine 08/25/2025 1: 37 PM EST BID URINE HOLD Routine 08/25/2025 11:27 AM EST URINALYSIS WITH URINE CULTURE REFLEX Routine 08/25/2025 11:27 AM EST BID UA WITH URINE CULTURE REFLEX Routine 08/25/2025 11:27 AM EST UREA NITROGEN, URINE Routine 08/25/2025 11:27 AM EST CREATININE, URINE, RANDOM Routine 08/25/2025 11:27 AM EST SODIUM, URINE, RANDOM Routine 08/25/2025 11:27 AM EST OSMOLALITY, URINE Routine 08/25/2025 11:27 AM EST OSMOLALITY Routine 08/25/2025 10:06 AM EST HEPARIN ASSAY (UNFRACTIONATED HEPARIN) Routine 08/25/2025 6:38 AM EST RENAL FUNCTION PANEL Timed 08/25/2025 6:38 AM EST C-REACTIVE PROTEIN Timed 08/25/2025 6: 38 AM EST CBC Timed 08/25/2025 6:38 AM EST VANCOMYCIN, TROUGH Routine 08/24/2025 1: 02 PM EST XR WRIST 3+ VW RIGHT Routine 08/24/2025 12:26 PM EST XR HAND 3+ VW RIGHT Routine 08/24/2025 12:26 PM EST ECG 12-LEAD Routine 08/24/2025 9:39 AM EST Acute pain of left shoulder HEPARIN ASSAY (UNFRACTIONATED HEPARIN) Routine 08/24/2025 6:04 AM EST RENAL FUNCTION PANEL Timed 08/24/2025 6:03 AM EST C-REACTIVE PROTEIN Timed 08/24/2025 6: 03 AM EST CBC Timed 08/24/2025 6:03 AM EST HEPARIN ASSAY (UNFRACTIONATED HEPARIN) Routine 08/23/2025 11:50 PM EST HEPARIN ASSAY (UNFRACTIONATED HEPARIN) Routine 08/23/2025 4:17 PM EST HS TROPONIN T Timed 08/23/2025 4:17 PM EST STAPH AUREUS BY PCR Routine 08/23/2025 1 :29 PM EST NASAL MRSA BY PCR Routine 08/23/2025 1:2 9 PM EST MAGNESIUM Routine 08/23/2025 8:49 AM EST HEPARIN ASSAY (UNFRACTIONATED HEPARIN) Routine 08/23/2025 8:49 AM EST C-REACTIVE PROTEIN Timed 08/23/2025 8: 49 AM EST CBC Timed 08/23/2025 8:49 AM EST HS TROPONIN T Timed 08/23/2025 8:49 AM EST XR PORTABLE CHEST 1 VW STAT 08/23/2025 1:31 AM EST NT-PROBNP STAT 08/23/2025 1:28 AM EST BASIC METABOLIC PANEL STAT 08/23/2025 1:28 AM EST CBC STAT 08/23/2025 1:28 AM EST ECG 12-LEAD STAT 08/23/2025 12:37 AM EST Acute hypoxic respiratory failure (CMS-HCC) IR MSK INJECTION / ASPIRATION - US Routine 08/22/2025 10:01 AM EST CULTURE, PROSTHETIC JOINT FLUID Routine 08/22/2025 9:53 AM EST Pain Acute pain of left shoulder LIPASE Routine 08/22/2025 6:57 AM EST HEPARIN ASSAY (UNFRACTIONATED HEPARIN) Routine 08/22/2025 6:57 AM EST BASIC METABOLIC PANEL Timed 08/22/2025 6:57 AM EST APTT Routine 08/22/2025 6:57 AM EST PROTIME-INR Routine 08/22/2025 6:57 AM EST C-REACTIVE PROTEIN Timed 08/22/2025 6: 57 AM EST MAGNESIUM Timed 08/22/2025 6:57 AM EST CBC Timed 08/22/2025 6:57 AM EST ECG 12-LEAD STAT 08/21/2025 10:27 PM EST HEPARIN ASSAY (UNFRACTIONATED HEPARIN) Routine 08/21/2025 1:28 PM EST HEPARIN ASSAY (UNFRACTIONATED HEPARIN) Routine 08/21/2025 7:00 AM EST BASIC METABOLIC PANEL Timed 08/21/2025 7:00 AM EST C-REACTIVE PROTEIN Timed 08/21/2025 7: 00 AM EST MAGNESIUM Timed 08/21/2025 7:00 AM EST CBC Timed 08/21/2025 7:00 AM EST HEPARIN ASSAY (UNFRACTIONATED HEPARIN) Routine 08/21/2025 12:37 AM EST HEPARIN ASSAY (UNFRACTIONATED HEPARIN) Timed 08/20/2025 3:21 PM EST US UPPER EXTREMITY VENOUS BILATERAL STAT 08/20/2025 9:51 AM EST BB RETYPE STAT 08/20/2025 7:32 AM EST HEPARIN ASSAY (UNFRACTIONATED HEPARIN) Routine 08/20/2025 7:32 AM EST APTT Routine 08/20/2025 7:32 AM EST PROTIME-INR Routine 08/20/2025 7:32 AM EST PHOSPHORUS Timed 08/20/2025 7:32 AM EST C-REACTIVE PROTEIN Timed 08/20/2025 7: 32 AM EST MAGNESIUM Timed 08/20/2025 7:32 AM EST COMPREHENSIVE METABOLIC PANEL Timed 08/20/2025 7:32 AM EST HS-TROPONIN T, 1HR STAT 08/20/2025 7: 32 AM EST CBC Timed 08/20/2025 7:[address] SHOULDER LEFT WO CONTRAST STAT 08/20/2025 5:09 AM EST LACTIC ACID WITH REFLEX STAT 08/20/2025 4:23 AM EST XR ELBOW 3+ VW LEFT STAT 08/19/2025 8 :43 PM EST XR SHOULDER 2+ VW RIGHT STAT 08/19/2025 8:43 PM EST XR SHOULDER 2+ VW LEFT STAT 08/19/2025 8:43 PM EST XR ELBOW 3+ VW RIGHT STAT 08/19/2025 8:43 PM EST XR PORTABLE CHEST 1 VW STAT 08/19/2025 8:43 PM EST HS-TROPONIN 3 HOUR STAT 08/19/2025 [...] AND SCREEN STAT 08/19/2025 5:13 PM EST RAINBOW DRAW STAT 08/19/2025 5:12 PM EST NT-PROBNP Routine 08/19/2025 5:12 PM EST MAGNESIUM Routine 08/19/2025 5:12 PM EST C-REACTIVE PROTEIN Routine 08/19/2025 5: 12 PM EST DARK GREEN NA HEP TOP STAT 08/19/2025 5:12 PM EST YELLOW TOP STAT 08/19/2025 5:12 PM EST LIGHT BLUE TOP STAT 08/19/2025 5:12 PM EST CULTURE, BLOOD STAT 08/19/2025 5:12 PM EST CBC AND DIFFERENTIAL STAT 08/19/2025 5:10 PM EST HS TROPONIN T (REFLEX 1HR, 3HR) Routine 08/19/2025 5:10 PM EST CBC AND DIFFERENTIAL STAT 08/19/2025 5:10 PM EST BLOOD GAS FULL PANEL, VENOUS STAT 08/19/2025 5:10 PM EST COMPREHENSIVE METABOLIC PANEL STAT 08/19/2025 5:10 PM EST XR SHOULDER 2+ VW RIGHT Routine 08/14/2025 2:50 PM EST Mechanical failure of prosthetic joint, subsequent encounter S/P shoulder hemiarthroplasty, right BASIC METABOLIC PANEL Timed 08/10/2025 6:53 AM EST CBC Timed 08/10/2025 6:53 AM EST BASIC METABOLIC PANEL Timed 08/09/2025 6:44 AM EST CBC Timed 08/09/2025 6:44 AM EST US UPPER EXTREMITY VENOUS RIGHT Routine 08/08/2025 4:05 PM EST BASIC METABOLIC PANEL Timed 08/08/2025 5:54 AM EST CBC Timed 08/08/2025 5:54 AM EST CTA CHEST PE Routine 08/07/2025 6:16 PM EST SARS COV2/INFLUENZA A/B AND RSV Routine 08/07/2025 5:02 PM EST ECG 12-LEAD Routine 08/07/2025 1:42 PM EST Shortness of breath NT-PROBNP Routine 08/07/2025 1:32 PM EST BASIC METABOLIC PANEL Routine 08/07/2025 1:32 PM EST CBC Routine 08/07/2025 1:32 PM EST XR CHEST 1 VW Routine 08/07/2025 12:13 PM EST XR PORTABLE CHEST 1 VW STAT 08/06/2025 12:31 AM EST IRON PROFILE Routine 08/03/2025 4:15 PM EST PROTEIN, TOTAL Routine 08/03/2025 4:15 PM EST ALBUMIN Routine 08/03/2025 4:15 PM EST T3, FREE Routine 08/03/2025 4:15 PM EST TOTAL T3 Routine 08/03/2025 4:15 PM EST TSH Routine 08/03/2025 4:15 PM EST BASIC METABOLIC PANEL Routine 08/03/2025 12:54 PM EST CBC Routine 08/03/2025 12:54 PM EST XR PORTABLE SHOULDER AP RIGHT Routine 08/01/2025 5:50 PM EST AFB STAIN Routine 08/01/2025 4:54 PM EST S/P reverse total shoulder arthroplasty, right AFB STAIN Routine 08/01/2025 4:54 PM EST S/P reverse total shoulder arthroplasty, right CULTURE, AFB Routine 08/01/2025 4:54 PM EST S/P reverse total shoulder arthroplasty, right CULTURE, AFB Routine 08/01/2025 4:54 PM EST S/P reverse total shoulder arthroplasty, right CULTURE, FUNGAL, OTHER (SMEAR PER POLICY) Routine 08/01/2025 4:54 PM EST S/P reverse total shoulder arthroplasty, right CULTURE, FUNGAL, OTHER (SMEAR PER POLICY) Routine 08/01/2025 4:54 PM EST S/P reverse total shoulder arthroplasty, right CULTURE, ANAEROBIC & AEROBIC (INCL GRAM) Routine 08/01/2025 4:54 PM EST S/P reverse total shoulder arthroplasty, right CULTURE, ANAEROBIC & AEROBIC (INCL GRAM) Routine 08/01/2025 4:54 PM EST S/P reverse total shoulder arthroplasty, right CULTURE, PROSTHETIC JOINT STAT 08/01/2025 4:47 PM EST AFB STAIN Routine 08/01/2025 4:47 PM EST S/P reverse total shoulder arthroplasty, right CULTURE, AFB Routine 08/01/2025 4:47 PM EST S/P reverse total shoulder arthroplasty, right CULTURE, FUNGAL, OTHER (SMEAR PER POLICY) Routine 08/01/2025 4:47 PM EST S/P reverse total shoulder arthroplasty, right CULTURE, ANAEROBIC & AEROBIC (INCL GRAM) Routine 08/01/2025 4:47 PM EST S/P reverse total shoulder arthroplasty, right ANESTHESIA INTUBATION Routine 08/01/2025 4:20 PM EST LH AN SUPRASCAPULAR NERVE BLOCK SINGLE SHOT Routine 08/01/2025 3:45 PM EST BILH AN BRACHIAL PLEXUS AND MORE BLOCK SINGLE SHOT Routine 08/01/2025 3:45 PM EST DE HUBERT SHOULDER ARTHRPLSTY HUMERAL&GLENOID COMPNT 08/01/2025 3:20 PM EST S/P reverse total shoulder arthroplasty, right DE HUBERT SHOULDER ARTHRPLSTY HUMERAL/GLENOID COMPNT 08/01/2025 3:20 PM EST S/P reverse total shoulder arthroplasty, right XR SHOULDER 1 VW RIGHT Routine 07/31/2025 3:29 PM EST Traumatic arthropathy, right shoulder XR SHOULDER 2+ VW RIGHT Routine 07/31/2025 2:35 PM EST Traumatic arthropathy, 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, right XR PORTABLE SHOULDER AP RIGHT Routine 07/11/2025 4:15 PM EDT SURGICAL PATHOLOGY TISSUE EXAM Routine 07/11/2025 2:52 PM EDT Traumatic arthropathy, right shoulder ANESTHESIA INTUBATION Routine 07/11/2025 2:22 PM EDT WIN AN AXILLARY BLOCK SINGLE SHOT Routine 07/11/2025 1:35 PM EDT LH AN SUPRASCAPULAR NERVE BLOCK SINGLE SHOT Routine 07/11/2025 1:35 PM EDT PATI AN RIGHT ADDUCTOR ULTRASOUND GUIDANCE Routine 07/11/2025 1:35 PM EDT DE ARTHROPLASTY GLENOHUMERAL JOINT TOTAL SHOULDER 07/11/2025 1:27 PM EDT Traumatic arthropathy, right shoulder Special Needs Maria G Anatomic Inverse/Reverse Total Shoulder, TM Baseplates COMPREHENSIVE METABOLIC PANEL Routine 07/06/2025 8:20 AM EDT Traumatic arthropathy, right shoulder CBC Routine 07/06/2025 8:20 AM EDT Traumatic arthropathy, right shoulder ECG 12-LEAD Routine 07/06/2025 8:01 AM EDT Encounter for other preprocedural examination from Last 3 Months Results * (ABNORMAL) hs-Troponin T, 3hr (09/09/2025 8:17 AM EST) Only the most recent of2 resultswithin the time period is included. Troponin T HS 20(H) <=19 ng/L 09/09/2025 8:46 AM EST [facility] Comment: hs-cTnT<=19 ng/L in 99% of healthy individuals. hs-cTnT values of 30, 52, 100 and 1000 ng/L correspond to approximately DONNA Gen 4 of 0.01, 0.03, 0.1 and 1 ng/mL Blood PERIPHERAL BLOOD SPECIMEN / Unknown Venipuncture / Unknown 09/09/2025 8:17 AM EST 09/09/2025 8:20 AM EST us Jamie Shannon Zaldivar MD LAB BLOOD ORDERABLES Final Res ult [facility] [address], [place] [address], * hs Troponin T (Now, reflex 3hr) (09/09/2025 5:26 AM EST) Troponin T HS 18 <=19 ng/L 09/09/2025 7:26 AM EST [facility] Comment: hs-cTnT<=19 ng/L in 99% of healthy individuals. hs-cTnT values of 30, 52, 100 and 1000 ng/L correspond to approximately DONNA Gen 4 of 0.01, 0.03, 0.1 and 1 ng/mL Blood PERIPHERAL BLOOD SPECIMEN / Unknown Venipuncture / Unknown 09/09/2025 5:26 AM EST 09/09/2025 6:46 AM EST us Jamie Shannon Zaldivar MD LAB BLOOD ORDERABLES Final Res ult [facility] [address] [place] [address], * (ABNORMAL) CBC (09/09/2025 5:26 AM EST) Only the most recent of24 resultswithin the time period is included. WBC 4.45 4.00 - 10.00 K/uL 09/09/2025 6:46 AM EST [facility] AP RBC 3.04(L) 3.90 - 5.20 M/uL 09/09/2025 6:46 AM EST [facility] AP Hemoglobin 8.6(L) 11.2 - 15.7 g/dL 09/09/2025 6:46 AM EST [facility] AP Hematocrit 28.7(L) 34.0 - 45.0 % 09/09/2025 6:46 AM [facility] AP MCV 94 82 - 98 fL 09/09/2025 6:46 AM [facility] AP MCH 28.3 26.0 - 32.0 pg 09/09/2025 6:46 AM EST [facility] AP MCHC 30.0(L) 32.0 - 37.0 g/dL 09/09/2025 6:46 AM EST [facility] AP RDW 18.9(H) 10.5 - 15.5 % 09/09/2025 6:46 AM EST [facility] AP RDW-SD 64.4(H) 35.1 - 46.3 fL 09/09/2025 6:46 AM [facility] AP Platelet Count 220 150 - 400 K/uL 09/09/2025 6:46 AM [facility] AP Nucleated RBC 0 <=0 #/100 WBC 09/09/2025 6:46 AM EST [facility] AP Blood PERIPHERAL BLOOD SPECIMEN / Unknown Venipuncture / Unknown 09/09/2025 5:26 AM EST 09/09/2025 6:37 AM EST us Jorge Piña MD LAB BLOOD ORDERABLES Final Resul t [facility] AP [address] [place] [address], * (ABNORMAL) Renal Function Panel (09/09/2025 5:26 AM EST) Only the most recent of14 resultswithin the time period is included. Sodium 134(L) 135 - 147 mmol/L 09/09/2025 7:22 AM [facility] Potassium 4.8 3.5 - 5.4 mmol/L 09/09/2025 7:22 AM [facility] Chloride 99 96 - 108 mmol/L 09/09/2025 7:22 AM [facility] Total CO2/Bicarbonate 29 22 - 32 mmol/L 09/09/2025 7:22 AM [facility] Anion Gap 6 4 - 16 mmol/L 09/09/2025 7:22 AM [facility] BUN 19 6 - 20 mg/dL 09/09/2025 7:22 AM [facility] Creatinine, Blood 0.40 0.40 - 1.10 mg/dL 09/09/2025 7:22 AM [facility] Glucose, Blood 94 70 - 100 mg/dL 09/09/2025 7:22 AM [facility] Calcium 8.2(L) 8.4 - 10.3 mg/dL 09/09/2025 7:22 AM [facility] Albumin, Blood 2.3(L) 3.5 - 5.2 g/dL 09/09/2025 7:22 AM [facility] Phosphorus 3.2 2.7 - 4.5 mg/dL 09/09/2025 7:22 AM [facility] Magnesium, Blood 2.2 1.6 - 2.6 mg/dL 09/09/2025 7:22 AM [facility] Blood PERIPHERAL BLOOD SPECIMEN / Unknown Venipuncture / Unknown 09/09/2025 5:26 AM EST 09/09/2025 6:46 AM EST Jorge Piña MD LAB BLOOD ORDERABLES Final Resul t Performing Organization Address City/[facility]/ZIP Co de Phone Number [facility] [address] [place] [address], [place] * ECG 12 lead (09/09/2025 4:36 AM EST) Only the most recent of8 resultswithin the time period is included. Ventricular Heart Rate 75 BPM EKG BUR MUSE Atrial Heart Rate 75 BPM EKG BUR MUSE DE Interval 182 ms EKG BUR MUSE QRSD Interval 118 ms EKG BUR MUSE QT Interval 384 ms EKG BUR MUSE QTC Interval 428 ms EKG BUR MUSE P [place] 56 degrees EKG BUR MUSE R [place] 5 degrees EKG BUR MUSE T Wave [place] 15 degrees EKG BUR MUSE 09/09/2025 4:34 [...] 03:48, QRS duration has increased us Jamie Zaldivar MD ECG ORDERABLES Final Result Performing Organization Address City/[facility]/ZIP Co de Phone Number EKG BUR MUSE [address] [place] [address] * MRI Cervical Spine Without Contrast (09/07/2025 [...] EST EXAMINATION: MRI CERVICAL SPINE WO CONTRAST [id number] MR BID-C SPINE INDICATION: Consetllation of neurologic [...] At C4-C5, there is central protrusion with [id number]-left uncovertebral joint hypertrophy causing mild spinal canal [...] 09/09/2025 EXAMINATION: MRI CERVICAL SPINE WO CONTRAST [id number] MR BID-C SPINE INDICATION: Consetllation of neurologic [...] At C4-C5, there is central protrusion with [id number]-left uncovertebral joint hypertrophy causing mild spinal canal [...] electronically signed on Sep 09 2025 12:58PM us Jorge Piña MD IMG MRI ORDERABLES Final Result * (ABNORMAL) Zinc, Serum (09/06/2025 11:45 AM EST) [facility] Zinc, Blood 51(L) 60 - 130 mcg/dL 09/09/2025 6:00 PM EST [facility] Comment: This test was developed and its analytical performance characteristics have been determined by [place]. It has not been cleared or approved by the U.S. Food and Drug Administration. This assay has been validated pursuant to the CLIA regulations and is used for clinical purposes. Blood PERIPHERAL BLOOD SPECIMEN / Unknown Venipuncture / Unknown 09/06/2025 11:45 AM EST 09/06/2025 1:04 PM EST Narrative [facility] - 09/09/2025 6:00 PM EST Performing Organization Information: Site ID: AMD Name: [employer] Address: [address] [place] [id number] Director: VENANCIO RIZZO MD,PHD us Jorge Piña MD LAB BLOOD ORDERABLES Final Resul t [facility] [address] [place] [address], * (ABNORMAL) C-Reactive Protein (09/06/2025 11:45 AM EST) Only the most recent of18 resultswithin the time period is included. [facility] C-Reactive Protein (CRP) 44.1(H) 0.0 - 5.0 mg/L 09/06/2025 2:04 PM EST [facility] Blood PERIPHERAL BLOOD SPECIMEN / Unknown Venipuncture / Unknown 09/06/2025 11:45 AM EST 09/06/2025 1:03 PM EST us Jorge Piña MD LAB BLOOD ORDERABLES Final Resul t [facility] [address] [place] [address], [place] * Methylmalonic Acid, Serum (09/06/2025 11:44 AM EST) Methylmalonic Acid, Serum 139 69 - 390 nmol/L 09/09/2025 11:00 AM EST [facility] Comment: Serum methylmalonic acid (MMA) levels are [...] neural tube defects and intrauterine growth restriction. [employer] utilized Multi-Modal Decomposition (MMD) analysis to establish first and second trimester- specific MMA reference intervals in , as given below: MMA, First trimester (<13 wks gestation): 58-167 nmol/L MMA, Second trimester (13-23 wks gestation): 63-241 nmol/L This test was developed and its analytical performance characteristics have been determined by [employer]. It has not been cleared or approved by the FDA. This assay has been validated pursuant to the CLIA regulations and is used for clinical purposes. Blood PERIPHERAL BLOOD SPECIMEN / Unknown Venipuncture / Unknown 09/06/2025 11:44 AM EST 09/06/2025 1:04 PM EST Narrative [facility] - 09/09/2025 11:00 AM EST Performing Organization Information: Site ID: AMD Name: [employer] Address: [address] [place] [address] Director: VENANCIO RIZZO MD,PHD Jorge Piña MD LAB BLOOD ORDERABLES Final Resul t [facility] [address] [place] [address], * (ABNORMAL) Vitamin A (09/06/2025 11:44 AM EST) Retinol 16(L) 38 - 98 mcg/dL 09/10/2025 3:00 PM EST [facility] Comment: Vitamin supplementation within 24 hours prior to blood draw may affect the accuracy of the results. This test was developed and its analytical performance characteristics have been determined by [facility] [place]. It has not been cleared or approved by the U.S. Food and Drug Administration. This assay has been validated pursuant to the CLIA regulations and is used for clinical purposes. Blood PERIPHERAL BLOOD SPECIMEN / Unknown Venipuncture / Unknown 09/06/2025 11:44 AM EST 09/06/2025 1:04 PM EST Narrative [facility] - 09/10/2025 3:00 PM EST Performing Organization Information: Site ID: AMD Name: [employer] Address: [address] [place] [address] Director: VENANCIO RIZZO MD,PHD us Jorge Piña MD LAB BLOOD ORDERABLES Final Resul t Performing Organization Address City/[facility]/ZIP Co de Phone Number [facility] [address] [place] [address], * Vitamin B12 (09/06/2025 11:44 AM EST) Pathologist [facility] Vitamin B12 Level 667 240 - 900 pg/mL 09/06/2025 2:00 PM EST [facility] Blood PERIPHERAL BLOOD SPECIMEN / Unknown Venipuncture / Unknown 09/06/2025 11:44 AM EST 09/06/2025 1:03 PM EST us Jorge Piña MD LAB BLOOD ORDERABLES Final Resul t [facility] [address] [place] [place] [address], * (ABNORMAL) hs-Troponin T (09/04/2025 4:03 AM EST) Only the most recent of3 resultswithin the time period is included. [facility] Troponin T HS 27(H) <=19 ng/L 09/04/2025 4:56 AM EST [facility] Comment: hs-cTnT<=19 ng/L in 99% of healthy individuals. hs-cTnT values of 30, 52, 100 and 1000 ng/L correspond to approximately DONNA Gen 4 of 0.01, 0.03, 0.1 and 1 ng/mL Blood VASCULAR CATHETER / Unknown Venipuncture / Unknown 09/04/2025 4:03 AM EST 09/04/2025 4:15 AM EST us Leyda Read MD LAB BLOOD ORDERABLES F inal Result Performing Organization Address City/[facility]/ZIP Co de Phone Number [facility] [address] * (ABNORMAL) Iron Profile (09/04/2025 4:03 AM EST) Only the most recent of2 resultswithin the time period is included. [facility] Iron,Serum/Plasm a 22(L) 30 - 160 ug/dL 09/04/2025 8:09 AM EST [facility] Transferrin 160(L) 200 - 360 mg/dL 09/04/2025 8:09 AM EST [facility] TIBC, Calculated 208(L) 250 - 450 ug/dL 09/04/2025 8:09 AM EST [facility] Iron Saturation % 11(L) 15 - 50 % 09/04/2025 8:09 AM EST [facility] Ferritin 121 13 - 150 ng/mL 09/04/2025 8:09 AM EST [facility] Blood PERIPHERAL BLOOD SPECIMEN / Unknown Venipuncture / Unknown 09/04/2025 4:03 AM EST 09/04/2025 4:15 AM EST Jorge Piña MD LAB BLOOD ORDERABLES Final Resul t [facility] [address] [place] [address], [place] * (ABNORMAL) Vitamin D, 25-OH (08/29/2025 6:24 AM EST) Vitamin D 25-OH Level 17(L) 30 - 60 ng/mL 08/29/2025 5:55 PM EST [facility] Blood PERIPHERAL BLOOD SPECIMEN / Unknown Venipuncture / Unknown 08/29/2025 6:24 AM EST 08/29/2025 6:29 AM EST us Eloy Gomez MD LAB BLOOD ORDERABLES Final R esult [facility] [address] [facility] [place] [address], [place] * XR Chest 1 VW Portable (08/28/2025 3:47 PM EST) Only the most recent of4 resultswithin the time period is included. Anatomical Region Laterality Modality Chest Digital Radiogra [...] electronically signed on Sep 01 2025 11:10AM Nadir Lewis MD IM DIAGNOSTIC IMAGING ORDERAB LES Final Result * XR Shoulder 2+ VW Left (08/28/2025 10:56 AM EST) Only the most recent of2 resultswithin the time period is included. Anatomical Region Laterality Modality Shoulder Left Computed [...] Mayra Craft by Dr. Sunni Pham, using [email or web address] on 08/28/2025 at 3:24 pm, 2 minutes [...] Mayra Craft by Dr. Sunni Pham, using [email or web address] on 08/28/2025 at 3:24 pm, 2 minutes after discovery of the findings. BY ELECTRONICALLY SIGNING THIS REPORT, I THE ATTENDING PHYSICIAN ATTEST THAT I HAVE REVIEWED THE IMAGES FOR THE ABOVE PROCEDURE(S) AND AGREE WITH THE FINDINGS DOCUMENTED. Sunni Mercado MD, electronically signed on Aug 29 2025 03:22PM us Nadir Lewis MD IMG DIAGNOSTIC IMAGING ORDERAB LES Final Result * IR Temporary Access Catheter Placement (08/27/2025 [...] table. A pre-procedure time-out was performed per [facility] protocol. The right neck was prepped and [...] table. A pre-procedure time-out was performed per [facility] protocol. The right neck was prepped and [...] 27 2025 01:44PM us Nadir Lewis MD [facility] [place] ORDERABLES Final Result * (ABNORMAL) CBC and Differential (08/26/2025 11:37 AM EST) Only the most recent of2 resultswithin the time period is included. WBC 5.90 4.00 - 10.00 K/uL 08/26/2025 11:54 AM [facility] AP RBC 2.77(L) 3.90 - 5.20 M/uL 08/26/2025 11:[address] [facility] AP Hemoglobin 7.7(L) 11.2 - 15.7 g/dL 08/26/2025 11:[address] [facility] AP Hematocrit 24.8(L) 34.0 - 45.0 % 08/26/2025 11:[address] [facility] AP MCV 90 82 - 98 fL 08/26/2025 11:[address] [facility] AP MCH 27.8 26.0 - 32.0 pg 08/26/2025 11:[address] [facility] MCHC 31.0(L) 32.0 - 37.0 g/dL 08/26/2025 11:[address] [facility] [facility] RDW 14.8 10.5 - 15.5 % 08/26/2025 11:[address] [facility] RDW-SD 47.9(H) 35.1 - 46.3 fL 08/26/2025 11:54 AM [facility] Platelet Count 230 150 - 400 K/uL 08/26/2025 11:[address] [facility] [facility] Nucleated RBC 0 <=0 #/100 WBC 08/26/2025 11:[address] [facility] [facility] Neutrophil 79.7(H) 34.0 - 71.0 % 08/26/2025 11:[address] [facility] [facility] Lymphocyte 11.0(L) 19.0 - 53.0 % 08/26/2025 11:54 AM [facility] Monocyte 5.3 5.0 - 13.0 % 08/26/2025 11:[address] [facility] [facility] Eosinophil 3.2 1.0 - 7.0 % 08/26/2025 11:54 AM [facility] AP Basophil 0.3 0.0 - 1.0 % 08/26/2025 11:54 AM EST [facility] Immature Granulocyte (Tenafly, Myelo, Promyelocyte) 0.5 0.0 - 0.6 % 08/26/2025 11:54 AM EST [facility] AP Absolute Neutrophil Count 4.70 1.60 - 6.10 K/uL 08/26/2025 11:54 AM EST [facility] AP Absolute Lymphocyte Count 0.65(L) 1.20 - 3.70 K/uL 08/26/2025 11:54 AM EST [facility] AP Absolute Monocyte Count 0.31 0.20 - 0.80 K/uL 08/26/2025 11:54 AM [facility] Absolute Eosinophil Count 0.19 0.04 - 0.54 K/uL 08/26/2025 11:54 AM EST [facility] Absolute Basophil Count <0.03 0.01 - 0.08 K/uL 08/26/2025 11:[address] [facility] Absolute Immature Granulocyte (Tenafly, Myelo, Promyelocyte) 0.03 0.00 - 0.09 K/uL 08/26/2025 11:54 AM [facility] Blood PERIPHERAL BLOOD SPECIMEN / Unknown Venipuncture / Unknown 08/26/2025 11:37 AM EST 08/26/2025 11:46 AM EST us Nadir Lewis MD LAB BLOOD ORDERABLES Final Res ult [facility] [address] [place] [address], * (ABNORMAL) TSH (08/26/2025 11:37 AM EST) Only the most recent of2 resultswithin the time period is included. TSH 6.70(H) 0.27 - 4.20 uIU/mL 08/26/2025 3:03 PM EST [facility] Blood PERIPHERAL BLOOD SPECIMEN / Unknown Venipuncture / Unknown 08/26/2025 11:37 AM EST 08/26/2025 11:46 AM EST us Nadir Lewis MD LAB BLOOD ORDERABLES Final Res ult Performing Organization Address [facility]/ZIP Co de Phone Number [facility] [address] [facility] [place] [address], [place] * T4, Free (08/26/2025 11:37 AM EST) Free Thyroxine 1.2 0.9 - 1.7 ng/dL 08/27/2025 12:04 AM EST [facility] Blood PERIPHERAL BLOOD SPECIMEN / Unknown Venipuncture / Unknown 08/26/2025 11:37 AM EST 08/26/2025 11:46 AM EST us Nadir Lewis MD LAB BLOOD ORDERABLES Final Res ult Performing Organization Address [facility] Co de Phone Number [facility] [address] [facility] [place] [address], [place] * Uric Acid, Random Urine (08/26/2025 1:55 AM EST) Initial Urine Uric Acid 55 No Established Reference Range mg/dL 08/26/2025 2:29 AM EST [facility] Urine URINE SPECIMEN / Unknown Collection / Unknown 08/26/2025 1:55 AM EST 08/26/2025 2:06 AM EST us Nadir Lewis MD URINE ORDERABLES Final Result Performing Organization Address City/[facility] Co de Phone Number [facility] [address] [facility] [place] [address], [place] * Urea Nitrogen, Urine (08/26/2025 1:55 AM EST) Only the most recent of2 resultswithin the time period is included. Urea Nitrogen, Random Urine 552 No Established Reference Range mg/dL 08/26/2025 2:29 AM EST [facility] Urine URINE SPECIMEN / Unknown Collection / Unknown 08/26/2025 1:55 AM EST 08/26/2025 2:06 AM EST us Nadir Lewis MD URINE ORDERABLES Final Result Performing Organization Address City/[facility] Co de Phone Number [facility] [address] [facility] [place] [address], [place] * Sodium, Urine, Random (08/26/2025 1:55 AM EST) Only the most recent of2 resultswithin the time period is included. Sodium, Random Urine 61 No Establish Reference Range mmol/L 08/26/2025 2:29 AM EST [facility] Urine URINE SPECIMEN / Unknown Collection / Unknown 08/26/2025 1:55 AM EST 08/26/2025 2:06 AM EST us Nadir Lewis MD URINE ORDERABLES Final Result Performing Organization Address [facility] de Phone Number [facility] [address] [facility] [place] [address], [place] * Osmolality, Urine (08/26/2025 1:55 AM EST) Only the most recent of2 resultswithin the time period is included. Osmolality, Urine 555 mosm/kg 08/26/2025 2:12 AM EST [facility] Urine URINE SPECIMEN / Unknown Collection / Unknown 08/26/2025 1:55 AM EST 08/26/2025 2:06 AM EST us Nadir Lewis MD URINE ORDERABLES Final Result Performing Organization Address City/[facility] de Phone Number [facility] [address] [facility] [place] [address], [place] * Creatinine, Urine, Random (08/26/2025 1:55 AM EST) Only the most recent of2 resultswithin the time period is included. Creatinine, Vikash Urine 82.0 No Established Reference Range mg/dL 08/26/2025 2:29 AM EST [facility] Urine URINE SPECIMEN / Unknown Collection / Unknown 08/26/2025 1:55 AM EST 08/26/2025 2:06 AM EST us Nadir Lewis MD URINE ORDERABLES Final Result [facility] [address] [place] [address], [place] * XR Abdomen Portable (08/25/2025 3:33 [...] * Vancomycin, Trough (08/25/2025 1:37 PM EST) Only the most recent of2 resultswithin the time period is included. Vancomycin Level, Trough 12.6 10.0 - 20.0 ug/mL 08/25/2025 2:43 PM EST [facility] Blood PERIPHERAL BLOOD SPECIMEN / Unknown Venipuncture / Unknown 08/25/2025 1:37 PM EST 08/25/2025 2:11 PM EST us Nadir Lewis MD LAB BLOOD ORDERABLES Final Res ult Performing Organization Address [facility]/ZIP Co de Phone Number [facility] [address] [facility] [place] [address], [place] * Urine Micro Hold (08/25/2025 11:27 AM EST) Micro Urine Reflex Hold Received 08/25/2025 1:02 PM EST [facility] AP Urine URINE SPECIMEN OBTAINED VIA STRAIGHT CATHETER / Unknown Collection / Unknown 08/25/2025 11:27 AM EST 08/25/2025 11:42 AM EST us Nadir Lewis MD URINE ORDERABLES Final Result Performing Organization Address [facility] Phone Number [facility] [address] [facility] [place] [address], [place] * (ABNORMAL) Urinalysis with Reflex to Urine Culture (08/25/2025 11:27 AM EST) Color, Urine Yellow Yellow, Colorless, Straw 08/25/2025 12:07 PM [facility] Clarity, Urine Hazy(A) Clear 08/25/2025 12:07 PM [facility] pH, Urine 6.0 5.0 - 8.0 08/25/2025 12:07 PM [facility] Protein, Urine 20 mg/dL(A) Negative 12:07 PM [facility] Glucose, Urine Negative Negative 08/25/2025 12:07 PM [facility] Ketone, Urine Negative Negative 08/25/2025 12:07 PM [facility] Bilirubin, Urine Negative Negative 08/25/2025 12:07 PM [facility] Urobilinogen, Urine Normal 0.2-1.0 mg/dL 08/25/2025 12:07 PM EST [facility] Blood, Urine Negative Negative 08/25/2025 12:07 PM [facility] Leukocyte Esterase, Urine Negative Negative 08/25/2025 12:07 PM [facility] Nitrite, Urine Negative Negative 08/25/2025 12:07 PM [facility] Specific [place], Urine 1.021 1.001 - 1.050 08/25/2025 12:07 PM [facility] White Blood Cells, Urine 0 0 - 5 /hpf 08/25/2025 12:07 PM [facility] Red Blood Cell, Urine 0 0 - 2 /hpf 08/25/2025 12:07 PM [facility] Budding Yeast Few(A) None Seen 08/25/2025 12:07 PM [facility] Hyphae Yeast Rare(A) None Seen 08/25/2025 12:07 PM [facility] Squamous Epithelial Cells 0-2 0-20 cells/HPF /HPF 08/25/2025 12:07 PM [facility] Mucous Threads Rare(A) None Seen 08/25/2025 12:07 PM [facility] Ca Oxalate Crystal Rare(A) None Seen 08/25/2025 12:07 PM [facility] Urine URINE SPECIMEN OBTAINED VIA STRAIGHT CATHETER / Unknown Collection / Unknown 08/25/2025 11:27 AM EST 08/25/2025 11:42 AM EST Nadir Lewis MD URINE ORDERABLES Final Result Performing Organization Address City/[facility]/ZIP Co de Phone Number [facility] [address] [facility] [place] [address], [place] * (ABNORMAL) Osmolality (08/25/2025 10:06 AM EST) Osmolality 270(L) 275 - 310 mosm/kg 08/25/2025 10:59 AM EST [facility] Blood PERIPHERAL BLOOD SPECIMEN / Unknown Venipuncture / Unknown 08/25/2025 10:06 AM EST 08/25/2025 10:11 AM EST Nadir Lewis MD LAB BLOOD ORDERABLES Final Res ult [facility] [address] [place] [address], [place] * Heparin Assay in AM (08/25/2025 6:38 AM EST) Only the most recent of11 resultswithin the time period is included. Heparin Assay 0.37 0.30 - 0.70 IU/mL 08/25/2025 7:04 AM EST [facility] Blood PERIPHERAL BLOOD SPECIMEN / Unknown Venipuncture / Unknown 08/25/2025 6:38 AM EST 08/25/2025 6:40 AM EST us Marianne Rose MD LAB BLOOD ORDERABLES Final Resu lt Performing Organization Address City/[facility]/ZIP Co de Phone Number [facility] [address] [place] [address], [place] * XR Wrist 3+ VW Right [...] electronically signed on Aug 24 2025 05:46PM us Nadir Lewis MD IMG DIAGNOSTIC IMAGING [...] IMAGING ORDERAB LES Final Result * (ABNORMAL) Nasal MRSA by PCR (08/23/2025 1:29 PM EST) Pathologist [facility] MRSA PCR Positive(A ) Negative 08/24/2025 12:40 PM EST [facility] Respiratory BOTH ANTERIOR NARES / Unknown Collection / Unknown 08/23/2025 1:29 PM EST 08/23/2025 1:50 PM EST Narrative [facility] - 08/24/2025 12:40 PM EST Test performed by GeneXpert real-time PCR. Nadir Lewis MD MICROBIOLOGY - GENERAL ORDERAB LES Final Result [facility] [address] [facility] [place] [address], * Magnesium (08/23/2025 8:49 AM EST) Only the most recent of5 resultswithin the time period is included. Magnesium, Blood 1.9 1.6 - 2.6 mg/dL 08/23/2025 2:03 PM EST [facility] Blood PERIPHERAL BLOOD SPECIMEN / Unknown Venipuncture / Unknown 08/23/2025 8:49 AM EST 08/23/2025 8:58 AM EST us Nadir Lewis MD LAB BLOOD ORDERABLES Final Res ult [facility] [address] [place] [address], [place] * NT-proBNP (08/23/2025 1:28 AM EST) Only the most recent of3 resultswithin the time period is included. NT-ProBNP 183 0 - 624 pg/mL 08/23/2025 5:36 AM EST [facility] Comment: Reference values vary with age, sex, and renal function. At 35% prevalence, NT-proBNP values: <450 have 99% negative predictive value. >1000 have 78% positive predictive value For screening outpatients, the loom fixer helper recommends maximizing sensitivity (and negative predictive value) [...] ORDERABLES Fin al Result Performing Organization Address City/[facility]/ZIP Co de Phone Number [facility] [address] [place] [address], [place] * (ABNORMAL) Basic Metabolic Panel (08/23/2025 1:28 AM EST) Only the most recent of8 resultswithin the time period is included. Sodium 130(L) 135 - 147 mmol/L 08/23/2025 2:02 AM EST [facility] Potassium 4.0 3.5 - 5.4 mmol/L 08/23/2025 2:02 AM EST [facility] Chloride 95(L) 96 - 108 mmol/L 08/23/2025 2:02 AM EST [facility] Total CO2/Bicarbonat e 26 22 - 32 mmol/L 08/23/2025 2:02 AM EST [facility] Anion Gap 9 4 - 16 mmol/L 08/23/2025 2:02 AM EST [facility] BUN 29(H) 6 - 20 mg/dL 08/23/2025 2:02 AM EST [facility] Creatinine, Blood 0.40 0.40 - 1.10 mg/dL 08/23/2025 2:02 AM EST [facility] Glucose, Blood 129(H) 70 - 100 mg/dL 08/23/2025 2:02 AM EST [facility] Calcium 8.3(L) 8.4 - 10.3 mg/dL 08/23/2025 2:02 AM EST [facility] Blood PERIPHERAL BLOOD SPECIMEN / Unknown Venipuncture / Unknown 08/23/2025 1:28 AM EST 08/23/2025 1:31 AM EST us Madeleine Rivas MD LAB BLOOD ORDERABLES Fin al Result [facility] [address] [place] [address], [place] * IR MSK Injection / Aspiration - [...] No growth DARSHANA 09/05/2025 12:42 PM EST [facility] Smear,Gram Stain 1+ Polymorphonuclear Leukocytes 09/05/2025 12:42 PM EST [facility] Smear,Gram Stain No Microorganisms Seen 09/05/2025 12:42 PM EST [facility] Body Fluid FLUID / Unknown 08/22/2025 9 :53 AM EST 08/22/2025 10:02 AM EST Albin Puentes DO MICROBIOLOGY - GENERAL ORDERABLE S Final Result Performing Organization Address [facility] de Phone Number [facility] [address] [place] [address], * (ABNORMAL) APTT (08/22/2025 6:57 AM EST) Only the most recent of2 resultswithin the time period is included. PTT 75(H) 25 - 36 s 08/22/2025 7:46 AM EST [facility] Blood PERIPHERAL BLOOD SPECIMEN / Unknown Venipuncture / Unknown 08/22/2025 6:57 AM EST 08/22/2025 7:05 AM EST us Albin Puentes DO LAB BLOOD ORDERABLES Final Resul t Performing Organization Address City/[facility] Co de Phone Number [facility] [address] [place] [address], * (ABNORMAL) Prothrombin Time - INR (08/22/2025 6:57 AM EST) Only the most recent of2 resultswithin the time period is included. Prothrombin Time 13.3(H) 9.4 - 12.5 s 08/22/2025 7:46 AM EST [facility] INR 1.2(H) 0.9 - 1.1 08/22/2025 7:46 AM EST [facility] Blood PERIPHERAL BLOOD SPECIMEN / Unknown Venipuncture / Unknown 08/22/2025 6:57 AM EST 08/22/2025 7:05 AM EST Albin Puentes DO LAB BLOOD ORDERABLES Final Resul t Performing Organization Address City/[facility] Co de Phone Number [facility] [address] [facility] [place] [address], [place] * Lipase (08/22/2025 6:57 AM EST) Pathologist [facility] Lipase 11 0 - 60 U/L 08/22/2025 7:50 AM EST [facility] Blood PERIPHERAL BLOOD SPECIMEN / Unknown Venipuncture / Unknown 08/22/2025 6:57 AM EST 08/22/2025 7:05 AM EST Madeleine Rivas MD LAB BLOOD ORDERABLES Fin al Result Performing Organization Address [facility] Phone Number [facility] [address] [place] [address], [place] * [place] Upper Extremity Venous Bilateral (08/20/2025 [...] Albin Puentes by Dr. Sherry Valladares, using [employer] Chat on 08/20/2025 at 9:53 am, [...] not compressible and does not show normal [id number] color flow, consistent with nonocclusive thrombus in [...] not compressible and does not show normal [id number] color flow, consistent with nonocclusive thrombus in [...] Albin Puentes by Dr. Sherry Valladares, using [employer] Chat on 08/20/2025 at 9:53 am, 3 minutes after discovery of the findings. BY ELECTRONICALLY SIGNING THIS REPORT, I THE ATTENDING PHYSICIAN ATTEST THAT I HAVE REVIEWED THE IMAGES FOR THE ABOVE PROCEDURE(S) AND AGREE WITH THE FINDINGS DOCUMENTED. Sherry Gomez MD, electronically signed on Aug 20 2025 10:38AM us Albin Puentes DO [facility] [place] ORDERABLES Final Result * (ABNORMAL) hs-Troponin T, 1hr (08/20/2025 7:32 AM EST) Troponin T HS 25(H) <=19 ng/L 08/20/2025 8:08 AM EST [facility] Comment: hs-cTnT<=19 ng/L in 99% of healthy individuals. hs-cTnT values of 30, 52, 100 and 1000 ng/L correspond to approximately DONNA Gen 4 of 0.01, 0.03, 0.1 and 1 ng/mL Blood PERIPHERAL BLOOD SPECIMEN / Unknown Venipuncture / Unknown 08/20/2025 7:32 AM EST 08/20/2025 7:35 AM EST Shelley Roblero MD LAB BLOOD ORDERABLES Final Resu lt Performing Organization Address City/[facility]/ZIP Co de Phone Number [facility] [address] [place] [address], [place] * BB Retype (08/20/2025 7:32 AM EST) Pathologist [facility] BB RETYPE Received 08/20/2025 5:03 PM EST [facility] Blood Venipuncture / Unknown 08/20/2025 7:32 AM EST 08/20/2025 8:02 AM EST Shelley Roblero MD BLOOD BANK TEST ORDERABLES Aysha l Result [facility] [address] [place] [address], [place] * Phosphorus (08/20/2025 7:32 AM EST) Phosphorus 3.1 2.7 - 4.5 mg/dL 08/20/2025 8:13 AM EST [facility] Blood PERIPHERAL BLOOD SPECIMEN / Unknown Venipuncture / Unknown 08/20/2025 7:32 AM EST 08/20/2025 7:35 AM EST Albin Y Puentes DO LAB BLOOD ORDERABLES Final Resul t [facility] [address] [place] [address], * (ABNORMAL) Comprehensive Metabolic Panel (08/20/2025 7:32 AM EST) Only the most recent of3 resultswithin the time period is included. Sodium 132(L) 135 - 147 mmol/L 08/20/2025 8:13 AM EST [facility] Potassium 3.9 3.5 - 5.4 mmol/L 08/20/2025 8:13 AM EST [facility] Chloride 98 96 - 108 mmol/L 08/20/2025 8:13 AM EST [facility] Total CO2/Bicarbonate 24 22 - 32 mmol/L 08/20/2025 8:13 AM EST [facility] Anion Gap 10 4 - 16 mmol/L 08/20/2025 8:13 AM EST [facility] BUN 29(H) 6 - 20 mg/dL 08/20/2025 8:13 AM EST [facility] Creatinine, Blood 0.50 0.40 - 1.10 mg/dL 08/20/2025 8:13 AM [facility] Glucose, Blood 124(H) 70 - 100 mg/dL 08/20/2025 8:13 AM [facility] Calcium 8.3(L) 8.4 - 10.3 mg/dL 08/20/2025 8:13 AM EST [facility] Total Protein 6.2(L) 6.4 - 8.3 g/dL 08/20/2025 8:13 AM [facility] Albumin, Blood 2.6(L) 3.5 - 5.2 g/dL 08/20/2025 8:13 AM EST [facility] Globulin Result 3.6 2.0 - 4.0 g/dL 08/20/2025 8:13 AM EST [facility] AST (SGOT) 26 0 - 40 U/L 08/20/2025 8:13 AM EST [facility] ALT (SGPT) 17 0 - 40 U/L 08/20/2025 8:13 AM [facility] Alkaline Phosphatase 156(H) 35 - 105 U/L 08/20/2025 8:13 AM EST [facility] Total Bilirubin 0.8 0.0 - 1.5 mg/dL 08/20/2025 8:13 AM EST [facility] Blood PERIPHERAL BLOOD SPECIMEN / Unknown Venipuncture / Unknown 08/20/2025 7:32 AM EST 08/20/2025 7:35 AM EST us Albin Puentes DO LAB BLOOD ORDERABLES Final Resul t [facility] [address] [place] [address], [place] * CT Shoulder Left Without Contrast [...] dislocation of right shoulder arthroplasty appreciated in turret lathe tender images. These findings are better evaluated in [...] dislocation of right shoulder arthroplasty appreciated in turret lathe tender images. These findings are better evaluated in [...] electronically signed on Aug 21 2025 10:44AM us Shelley Roblero MD IMG CT ORDERABLES Final Result * Lactic Acid with 3 Hour Reflex (08/20/2025 4:23 AM EST) Lactic Acid 0.8 0.5 - 2.0 mmol/L 08/20/2025 4:26 AM EST [facility] Blood PERIPHERAL BLOOD SPECIMEN / Unknown Venipuncture / Unknown 08/20/2025 4:23 AM EST 08/20/2025 4:25 AM EST us Jailyn Arreola MD LAB BLOOD ORDERABLES Aysha melendrez Result [facility] [address] [place] [address], * XR Shoulder 2+ Vw Right (08/19/2025 8:43 PM EST) Only the most recent of3 resultswithin the time period is included. Anatomical Region Laterality Modality Shoulder Right Digital [...] Final Result * XR Elbow 3+ VW Left (08/19/2025 [...] DIAGNOSTIC IMAGING ORDERABL ES Final Result * US Lower Extremity Venous Left (08/19/2025 [...] Aug 19 2025 07:17PM Shelley Roblero MD [facility] ORDERABLES Final Result * CT Angiogram Chest PE : Arteriogram (08/19/2025 6:49 PM EST) Only the most recent of2 resultswithin the time period is included. Anatomical Region Laterality Modality Chest Computed Tomogra [...] of Aortic Disease: A Report of the [place] [employer]/[place] College of Cardiology Joint Committee on Clinical Practice Guidelines. Circulation 2021; 146:u839-j369. Erbel R, et al. ESC Guidelines on the diagnosis of thoracic and abdominal aorta of the adult. Eur Heart J 2014;35:4335-6396. Cindy EL, et al. The Society of [...] secondary to the humeral fracture. Procedure Note Akaknsha Ríos MD - 08/19/2025 EXAMINATION: CTA CHEST [...] of Aortic Disease: A Report of the [place] [employer]/[place] College of Cardiology Joint Committee on Clinical Practice Guidelines. Circulation 2022; 146:l085-l941. Erbel R, et al. ESC Guidelines on the diagnosis of thoracic and abdominal aorta of the adult. Eur Heart J 2014;35:6050-8251. Cindy TURCIOS et al. The Society of Vascular Surgery practice guidelines on the care of patients with an abdominal aortic aneurysm. J Vasc Surg 2018;67:2-77. Joseph Dunham, et al. Management of Descending Thoracic Aortic Disease: Clinical Practice Guidelines of the Society of Vascular Surgery. Eur J Vasc Endovasc Surg 2017;53:4-52. Akanksha Ríos MD, electronically signed on Aug 19 2025 07:13PM Shelley Roblero MD [facility] [place] ORDERABLES Edited Result - Final * CT Cervical Spine Without Contrast (08/19/2025 6:49 PM EST) Anatomical Region Laterality Modality Cervical Spine Computed Tomogra phy 08/19/2025 6:58 PM EST Impressions 08/19/2025 6:57 PM EST 1. No acute cervical spine fracture or traumatic malalignment. 2. Left proximal humeral fracture imaged on the turret lathe tender view. 3. Chronic compression deformity of the [...] radiation dose report was copied from accession #[id number] (CT HEAD WO CONTRAST) COMPARISON: CT chest 07 August 2025 FINDINGS: Reversal of the normal cervical lordosis is demonstrated. No traumatic malalignment. Rotation of C1 on C2 is likely due to head positioning within the scanner. No definite acute fractures are identified. There is moderate anterior height loss of the T1 vertebral body, unchanged from prior CT from July 2025. [id number] multilevel degenerative changes with intervertebral disc space narrowing, endplate sclerosis, and osteophyte formation. No high-grade central canal stenosis. Mild multilevel neural foraminal stenosis without high-grade narrowing.There is no prevertebral edema. Stranding in the left supraclavicular soft tissues relates to a left proximal humeral fracture as seen on the turret lathe tender views. Severe emphysema is noted in the [...] radiation dose report was copied from accession #[id number] (CT HEAD WO CONTRAST) COMPARISON: CT chest 07 August 2025 FINDINGS: Reversal of the normal cervical lordosis is demonstrated. No traumatic malalignment. Rotation of C1 on C2 is likely due to head positioning within the scanner. No definite acute fractures are identified. There is moderate anterior height loss of the T1 vertebral body, unchanged from prior CT from July 2025. Kaof-pj-apxvztxe multilevel degenerative changes with intervertebral disc space narrowing, endplate sclerosis, and osteophyte formation. No high-grade central canal stenosis. Mild multilevel neural foraminal stenosis without high-grade narrowing.There is no prevertebral edema. Stranding in the left supraclavicular soft tissues relates to a left proximal humeral fracture as seen on the turret lathe tender views. Severe emphysema is noted in the left lung apex. Thyroid gland demonstrates a rim calcified 5 mm nodule on the right which does not require dedicated imaging follow-up. IMPRESSION: 1. No acute cervical spine fracture or traumatic malalignment. 2. Left proximal humeral fracture imaged on the turret lathe tender view. 3. Chronic compression deformity of the [...] PM EST EXAMINATION: CT HEAD WO CONTRAST [id number] CT BID-HEAD INDICATION: s/p fall; TECHNIQUE: Contiguous [...] - 08/19/2025 EXAMINATION: CT HEAD WO CONTRAST [id number] CT BID-HEAD INDICATION: s/p fall; TECHNIQUE: Contiguous [...] electronically signed on Aug 19 2025 06:49PM Shelley Roblero MD IMG CT ORDERABLES Final Result * Type and Screen (08/19/2025 5:13 PM EST) ABO and Rh O POS 08/19/2025 7:04 PM EST [facility] BLOOD BANK Antibody Screen NEG 7:04 PM EST [facility]OD [facility] TS Expiration Date 08/22/2025 23:59 08/19/2025 7:04 PM EST [facility] Blood PERIPHERAL BLOOD SPECIMEN / Unknown Venipuncture / Unknown 08/19/2025 5:13 PM EST 08/19/2025 5:18 PM EST Shelley Roblero MD BLOOD BANK TEST ORDERABLES Aysha l Result Performing Organization Address City/[facility]/ZIP Co de Phone Number [facility] BLOOD [facility] [address] [place] [address], [place] * Dark Green Top (Na-Hep) (08/19/2025 5:12 PM EST) Na_Hep Tube Received 08/19/2025 7:01 PM EST [facility] Blood PERIPHERAL BLOOD SPECIMEN / Unknown Venipuncture / Unknown 08/19/2025 5:12 PM EST 08/19/2025 5:18 PM EST Shelley Roblero MD LAB BLOOD ORDERABLES Final Resu lt Performing Organization Address City/[facility]/ZIP Co de Phone Number [facility] [address] [place] [address], [place] * Gold Top (08/19/2025 5:12 PM EST) Gold Top Tube Received 08/19/2025 7:01 PM EST [facility] Blood PERIPHERAL BLOOD SPECIMEN / Unknown Venipuncture / Unknown 08/19/2025 5:12 PM EST 08/19/2025 5:17 PM EST Shelley Roblero MD LAB BLOOD ORDERABLES Final Resu lt Performing Organization Address City/[facility]/ZIP Co de Phone Number [facility] [address] [place] [address], [place] * Blue Top (08/19/2025 5:12 PM EST) Blue Top Tube Received 08/19/2025 5:34 PM EST [facility] Blood PERIPHERAL BLOOD SPECIMEN / Unknown Venipuncture / Unknown 08/19/2025 5:12 PM EST 08/19/2025 5:18 PM EST Shelley Roblero MD LAB BLOOD ORDERABLES Final Resu lt [facility] [address] [place] [address], [place] * Culture, Blood (08/19/2025 5:12 PM EST) [facility] Culture No growth after 5 days DARSHANA 08/24/2025 8:01 PM EST [facility] Blood PERIPHERAL BLOOD SPECIMEN / Unknown Venipuncture / Unknown 08/19/2025 5:12 PM EST 08/19/2025 5:18 PM EST Shelley Roblero MD MICROBIOLOGY - GENERAL ORDERABL ES Final Result Performing Organization Address [facility] Co de Phone Number [facility] [address] [place] [address], [place] * (ABNORMAL) hs-Troponin T (reflex 1hr, 3hr) (08/19/2025 5:10 PM EST) [facility] Troponin T HS 29(H) <=19 ng/L 08/19/2025 6:08 PM EST [facility] Comment: Moderately Hemolyzed Specimen, hs-cTnT<=19 ng/L in 99% of healthy individuals. hs-cTnT values of 30, 52, 100 and 1000 ng/L correspond to approximately DONNA Gen 4 of 0.01, 0.03, 0.1 and 1 ng/mL Blood PERIPHERAL BLOOD SPECIMEN / Unknown Venipuncture / Unknown 08/19/2025 5:10 PM EST 08/19/2025 5:17 PM EST Shelley Roblero MD LAB BLOOD ORDERABLES Final Resu lt Performing Organization Address City/[facility]/ZIP Co de Phone Number [facility] [address] [place] [address], [place] * (ABNORMAL) Blood Gas Full Panel, Venous (08/19/2025 5:10 PM EST) pH, Venous 7.46(H) 7.35 - 7.45 08/19/2025 5:18 PM [facility] pCO2, Venous 41 35 - 45 mmHg 08/19/2025 5:18 PM [facility] pO2, Venous 40(L) 80 - 105 mmHg 08/19/2025 5:18 PM [facility] HCO3, Venous 28 21 - 30 mmol/L 08/19/20 5:18 PM [facility] % O2Hb, Venous 72(L) 95 - 99 % 08/19/2025 5:18 PM [facility] Base Excess, Venous 4.5 No Established Reference Range mmol/L 08/19/2025 5:18 PM [facility] Sodium, Whole Blood 130(L) 135 - 147 mmol/L 08/19/2025 5:18 PM [facility] Potassium, Whole Blood 3.7 3.5 - 5.4 mmol/L 08/19/2025 5:18 PM [facility] Chloride, Whole Blood 100 96 - 108 mmol/L 08/19/2025 5:18 PM [facility] Lactic Acid, Venous 1.6 0.5 - 2.0 mmol/L 08/19/2025 5:18 PM [facility] Glucose, Whole Blood 139(H) 70 - 105 mg/dL 08/19/2025 5:18 PM [facility] Ionized Calcium 1.11(L) 1.12 - 1.32 mmol/L 08/19/2025 5:18 PM [facility] Hematocrit, Blood Gas 30.1(L) 37.0 - 47.0 % 08/19/2025 5:18 PM [facility] Carboxyhemogl obin, VBG 1.6(H) 0.5 - 1.5 % 08/19/2025 5:18 PM [facility] Methemoglobin , VBG 0.8(H) 0.2 - 0.6 % 08/19/2025 5:18 PM [facility] Hemoglobin, Blood Gas 9.7(L) 12.0 - 16.0 g/dL 08/19/2025 5:18 PM [facility] Blood Venipuncture / Unknown 08/19/2025 5:10 PM EST 08/19/2025 5:16 PM EST us Shelley Roblero MD LAB BLOOD ORDERABLES Final Resu lt [facility] [address] [place] [address], [place] * US Upper Extremity Venous Right (08/08/2025 4:05 PM EST) Anatomical Region Laterality Modality Arm Right Ultrasound 08/08/2025 4:19 PM EST Impressions 08/08/2025 5:11 PM EST No evidence of deep vein thrombosis in the right upper extremity. BY ELECTRONICALLY SIGNING THIS REPORT, I THE ATTENDING PHYSICIAN ATTEST THAT I HAVE REVIEWED THE IMAGES FOR THE ABOVE PROCEDURE(S) AND AGREE WITH THE FINDINGS DOCUMENTED. Shivani Mcelroy MD , David Duran MD, electronically signed on Aug 08 2025 05:11PM Narrative 08/08/2025 5:11 PM EST EXAMINATION: US UPPER EXTREMITY VENOUS RIGHT INDICATION: [...] patent, compressible and show normal color flow. Procedure Note David Duran MD - 08/08/2025 EXAMINATION: US UPPER EXTREMITY VENOUS RIGHT [...] patent, compressible and show normal color flow. IMPRESSION: No evidence of deep vein thrombosis in the right upper extremity. BY ELECTRONICALLY SIGNING THIS REPORT, I THE ATTENDING PHYSICIAN ATTEST THAT I HAVE REVIEWED THE IMAGES FOR THE ABOVE PROCEDURE(S) AND AGREE WITH THE FINDINGS DOCUMENTED. Shivani Mcelroy MD , David Duran MD, electronically signed on Aug 08 2025 05:11PM Harpreet Goins MD IM US ORDERABLES Final Resu lt * Coronavirus SARS-CoV-2, Influenza A/B and RSV (08/07/2025 5:02 PM EST) Coronavirus SARS-CoV-2 Negative Negative 08/07/2025 6:14 PM EST [facility] Influenza A Negative Negative 08/07/2025 6:14 PM EST [facility] Influenza B Negative Negative 08/07/2025 6:14 PM EST [facility] RSV by PCR Negative Negative 08/07/2025 6:14 PM EST [facility] Respiratory SWAB OF INTERNAL NOSE / Unknown Collection / Unknown 08/07/2025 5:02 PM EST 08/07/2025 5:16 PM EST Narrative [facility] - 08/07/2025 6:14 PM EST Test performed by GeneXpert real-time PCR. Karishma GREEN BODY FLUIDS AND STOOLS ORDERAB LES Final Result [facility] [address] [place] [id number], [place] * XR Chest 1 VW (08/07/2025 12:13 PM EST) Anatomical Region Laterality Modality Chest Computed Radiogr aphy 08/08/2025 9:03 AM EST Impressions 08/08/2025 9:02 AM EST Since 06 August 2025 chest radiograph, stable nonspecific interstitial opacities, most notable in the right upper lung. These opacities may represent [...] hemithorax are likely outside of the patient. RECOMMENDATION(S): CT chest with contrast NOTIFICATION: The findings were discussed with, and acknowledged by Ching Martin by Dr. Cristopher Perry, using [email or web address] on 08/07/2025 at 3:01 pm, 5 minutes after discovery of the findings. BY ELECTRONICALLY SIGNING THIS REPORT, I THE ATTENDING PHYSICIAN ATTEST THAT I HAVE REVIEWED THE IMAGES FOR THE ABOVE PROCEDURE(S) AND AGREE WITH THE FINDINGS DOCUMENTED. Duran Chaudhari MD, electronically signed on Aug 08 2025 09:02AM Narrative 08/08/2025 9:02 AM EST EXAMINATION: XR CHEST 1 VW INDICATION: increased 02 post op; increased 02 post op; TECHNIQUE: AP portable chest. COMPARISON: 06 August 2025 chest radiograph Procedure Note Duran Pagan MD - 08/08/2025 EXAMINATION: XR CHEST 1 VW INDICATION: increased 02 post op; increased 02 post op; TECHNIQUE: AP portable chest. COMPARISON: 06 August 2025 chest radiograph IMPRESSION: Since 06 August 2025 chest radiograph, stable nonspecific interstitial opacities, most notable in the right upper lung. These opacities may represent [...] hemithorax are likely outside of the patient. RECOMMENDATION(S): CT chest with contrast NOTIFICATION: The findings were discussed with, and acknowledged by Ching Martin by Dr. Cristopher Perry, using [email or web address] on 08/07/2025 at 3:01 pm, 5 minutes after discovery of the findings. BY ELECTRONICALLY SIGNING THIS REPORT, I THE ATTENDING PHYSICIAN ATTEST THAT I HAVE REVIEWED THE IMAGES FOR THE ABOVE PROCEDURE(S) AND AGREE WITH THE FINDINGS DOCUMENTED. Duran Chaudhari MD, electronically signed on Aug 08 2025 09:02AM Karishma GREEN IMG DIAGNOSTIC IMAGING ORDERAB LES Final Result * T3, Free (08/03/2025 4:15 PM EST) Pathologist [facility] Free T3 2.3 2.3 - 4.2 pg/mL 08/04/2025 11:00 AM EST [facility] Blood PERIPHERAL BLOOD SPECIMEN / Unknown Venipuncture / Unknown 08/03/2025 4:15 PM EST 08/03/2025 4:24 PM EST Narrative [facility] - 08/04/2025 11:00 AM EST Performing Organization Information: Site ID: [id number] Name: [employer] Address: [address] [place] [id number] Director: SANDEEP PENA MD [place] [facility] LAB BLOOD ORDERABLES Final Resul t Performing Organization Address City/[facility]/ZIP Co de Phone Number [address] [address], * (ABNORMAL) Total T3 (08/03/2025 4:15 PM EST) [facility] Total T3 67.0(L) 80.0 - 200.0 ng/dL 08/03/2025 5:09 PM EST [facility] Blood PERIPHERAL BLOOD SPECIMEN / Unknown Venipuncture / Unknown 08/03/2025 4:15 PM EST 08/03/2025 4:24 PM EST [place] [facility] LAB BLOOD ORDERABLES Final Resul t [facility] [address] [place] [address], * (ABNORMAL) Protein, Total (08/03/2025 4:15 PM EST) [facility] Total Protein 6.1(L) 6.4 - 8.3 g/dL 08/03/2025 5:09 PM EST [facility] Blood PERIPHERAL BLOOD SPECIMEN / Unknown Venipuncture / Unknown 08/03/2025 4:15 PM EST 08/03/2025 4:24 PM EST [place] [facility] LAB BLOOD ORDERABLES Final Resul t Performing Organization Address City/[facility]/ZIP Co de Phone Number [facility] [address] [facility] [place] [address], [place] * (ABNORMAL) Albumin (08/03/2025 4:15 PM EST) Albumin, Blood 3.0(L) 3.5 - 5.2 g/dL 08/03/2025 5:09 PM EST [facility] Blood PERIPHERAL BLOOD SPECIMEN / Unknown Venipuncture / Unknown 08/03/2025 4:15 PM EST 08/03/2025 4:24 PM EST [place] LAB BLOOD ORDERABLES Final Resul t Performing Organization Address City/[facility] Co de Phone Number [facility] [address] [facility] [place] [address], [place] * XR Shoulder AP Right Portable (08/01/2025 5:50 PM EST) Only the most recent of2 resultswithin the time period is included. Anatomical Region Laterality Modality Shoulder Right Digital Radiogra phy 08/01/2025 6:21 PM EST Narrative 08/01/2025 6:20 PM EST EXAMINATION: XR SHOULDER AP RIGHT PORTABLE INDICATION: post op revision right shoulder; COMPARISON: 31 July 2025 FINDINGS: Interval right-sided reverse glenohumeral arthroplasty revision. No fracture seen. Right upper lobe infiltrates raise possibility of pneumonia. Imaging follow-up recommended. Miles Ortiz MD, electronically signed on Aug 01 2025 06:20PM Procedure Note Miles Ortiz MD - 08/01/2025 EXAMINATION: XR SHOULDER AP RIGHT PORTABLE INDICATION: post op revision right shoulder; COMPARISON: 31 July 2025 FINDINGS: Interval right-sided reverse glenohumeral arthroplasty revision. No fracture seen. Right upper lobe infiltrates raise possibility of pneumonia. Imaging follow-up recommended. Miles Ortiz MD, electronically signed on Aug 01 2025 06:20PM [place] GRE[facility] IMG DIAGNOSTIC IMAGING ORD ERABLES Final Result * AFB stain (08/01/2025 4:54 PM EST) Only the most recent of3 resultswithin the time period is included. Smear, Acid Fast No acid fast bacilli (Direct smear) 08/02/2025 4:51 PM EST [facility] Tissue SHOULDER NEC / Unknown 08/01/2025 4:54 PM EST 08/01/2025 5:50 PM EST Harpreet Goins MD MICROBIOLOGY - GENERAL ORDER MIKE Final Result Performing Organization Address [facility] de Phone Number [facility] [address] [facility] [place] [address], * Culture, Fungal, Other (08/01/2025 4:54 PM EST) Only the most recent of3 resultswithin the time period is included. 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 [address], * Culture, Aerobic & Anaerobic (Incl Gram) (08/01/2025 4:54 PM EST) Only the most recent of3 resultswithin the time period is included. 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 [address], * Culture, Prosthetic Joint (08/01/2025 4:47 PM EST) Culture, Prosthetic Joint No growth DARSHANA 08/15/2025 11:14 AM EST [facility] Hardware OTHER SPECIFIED OTHER TOTAL PROSTHETIC REPLACEMENT OF JOINT / Unknown 08/01/2025 4:47 PM EST 08/01/2025 5:52 PM EST Harpreet Goins MD MICROBIOLOGY - GENERAL ORDER MIKE Final Result Performing Organization Address [facility] Phone Number [facility] [address] [place] [address], * AN ELECTIVE ENDOTRACHEAL AIRWAY (08/01/2025 4:20 PM EST) Narrative Archie Jacques CRNA - 08/01/2025 4:20 PM EST Archie Jacques CRNA 08/01/2025 4:21 PM Airway Date/Time: 08/01/2025 4:20 PM Reason: elective Airway not difficult General Information and Staff Patient location during procedure: OR Performed by: Thong Cortez CRNA Authorized by: Favian Falk MD Indications and Patient Condition Indications for airway management: anesthesia Preoxygenated: yes High flow nasal oxygen used Mask difficulty assessment: 1 - easily ventilated by mask Final Airway Details Final airway type: endotracheal airway Successful airway: ETT Cuffed: yes Successful intubation technique: video laryngoscopy Endotracheal tube insertion site: oral Blade: [place] Blade size: #3 ETT size (mm): 7.0 Cormack-Lehane Classification: grade I - full view of glottis Placement verified by: chest auscultation and capnometry minimum occlusive pressure Measured from: lips Number of attempts at approach: 1 Dentition unchanged us Favian Falk MD RESPIRATORY CARE ORDERABLE S Final Result * BILH AN BRACHIAL PLEXUS AND MORE BLOCK SINGLE SHOT, LH AN SUPRASCAPULAR NERVE BLOCK SINGLE SHOT (08/01/2025 3:45 PM EST) Only the most recent of2 resultswithin the time period is included. Jose Vanessa MD - 08/01/2025 3:45 PM EST Jose Pinzon MD 08/01/2025 4:18 PM Peripheral Block Patient location during procedure: pre-op Start time: 08/01/2025 3:45 PM End time: 08/01/2025 4:04 PM Reason for block: post-op pain management Staffing Performed by: Choco Andujar MD Authorized by: Jose Pinzon MD Preanesthetic Checklist Completed: patient identified, IV checked, site marked, risks and benefits discussed, surgical consent, monitors and equipment checked, pre-op evaluation, timeout performed and hand hygiene performed Peripheral Block Patient position: supine Prep: ChloraPrep Patient monitoring: blood pressure, SpO2 and EKG Block type: supraclavicular and suprascapular nerve Laterality: right Injection technique: single-shot Guidance: ultrasound guided Ultrasound images saved electronically. Infiltration strength: 2 % Dose: 1 mL Needle Needle type: nerve block needle Needle gauge: 22 G Needle length: 50 mm Needle localization: ultrasound guidance Medications Administered BUPivacaine HCl 0.5 % (5 mg/mL) injection - Regional 15 mL - 08/01/2025 3:47:00 PM BUPivacaine (PF) 0.25 % (2.5 mg/mL) injection - Regional 5 mL - 08/01/2025 3:50:00 PM Assessment Injection assessment: negative aspiration for heme, no paresthesia on injection, incremental injection and local spread visualized on ultrasound Heart rate change: no Additional Notes Supraclavicular (bupivacaine 0.5% 15 cc) and suprascapular (bupivacaine 0.25% 5 cc) nerve block performed us Jose Pinzon MD DE ANESTHESI A Final Result * XR Shoulder 1 VW Right (07/31/2025 3:29 PM EST) Anatomical Region Laterality Modality Shoulder Right Digital Radiogra phy 08/01/2025 7:4 7 AM EST Narrative 08/01/2025 7:46 AM EST INDICATION: Pain TECHNIQUE: 1 axillary view of the right shoulder COMPARISON: 11 July 2025 radiographs FINDINGS: There is a reversed right shoulder arthroplasty which on this single view appears in good alignment. No definite periprosthetic lucency. There are old right-sided rib fractures. Fredy Hunter MD, electronically signed on Aug 01 2025 07:46AM Procedure Note Fredy Hunter MD - 08/01/2025 INDICATION: Pain TECHNIQUE: 1 axillary view of the right shoulder COMPARISON: 11 July 2025 radiographs FINDINGS: There is a reversed right shoulder arthroplasty which on this single view appears in good alignment. No definite periprosthetic lucency. There are old right-sided rib fractures. Fredy Hunter MD, electronically signed on Aug 01 2025 07:46AM [facility] GREEN IMG DIAGNOSTIC IMAGING ORD ERABLES Final Result * Surgical Pathology Tissue Exam (07/11/2025 2:52 PM EDT) Case Report Surgical Pathology Report Case: [id number] Authorizing Provider: Harpreet Goins MD Collected: 07/11/2025 02:52 PM Ordering Location: [facility] Received: 07/11/2025 05:29 PM Pathologist: Coco Eubanks MD Specimen: Shoulder, Right, RIGHT SHOULDER BONE AND TISSUE 07/17/2025 5:41 PM EST [facility] AP Final Diagnosis A. Shoulder bone and tissue, right, arthroplasty: - Severe osteoarthritis with eburnation, subchondral sclerosis, and subchondral cysts. - Fatty marrow. 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 Shoulder, Right, RIGHT SHOULDER BONE AND TISSUE The specimen is received fresh labeled with the patient's name, medical record number, and right shoulder bone and tissue , and consists of a 4.7 x 4.5 x 1.6 cm humeral head with an irregular resection margin and an articular surface showing eburnation. Sectioning reveals yellow-cerna firm trabeculated bony cut surfaces. A marketing development representative section is submitted in cassette A1 following decalcification. 07/17/2025 5:41 PM [facility] AP Methods and Disclaimers By his/her signature, the senior physician certifies that he/she personally conducted a gross and/or microscopic examination of the described specimen(s) and rendered or confirmed the diagnosis(es) related thereto. Slides reviewed at [facility] - Anatomic Pathology [place] [address] Immunohistochemistry test(s), if applicable, were developed and their performance characteristics were determined by the Department of Pathology at [facility], [place], [place]. They have not been cleared or approved by the U.S. Food and Drug Administration. The FDA has determined that such clearance or approval is not necessary. These tests are used for clinical purposes. They should not be regarded as investigational or for research. This laboratory is certified under the Clinical Laboratory Improvement Amendments of 1988 (CLIA-88) as qualified to perform high complexity clinical laboratory testing. Unless otherwise specified, all histochemical and immunohistochemical controls are adequate. 07/17/2025 5:41 PM [facility] Resulting Labs Gross Completed at 07/11/2025 5:29 PM [facility], [address] [place] [address], [id number] CLIA: [id number] Final Diagnosis Completed At 07/17/2025 5:41 PM [facility], [address] [place] [address], [id number] CLIA: [id number] 07/17/2025 5:41 PM EST [facility] Tissue SHOULDER NEC / Unknown 07/11/2025 2:52 PM EDT 07/11/2025 5:29 PM EDT Comment:Pre-op diagnosis: Traumatic arthropathy, 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 [address], * AN ELECTIVE ENDOTRACHEAL AIRWAY (07/11/2025 2:22 PM EDT) Sammi Aleman CRNA - 07/11/2025 2:22 PM EDT Sammi Daugherty CRNA 07/11/2025 2:36 PM Airway Date/Time: 07/11/2025 2:22 PM Reason: elective Airway not difficult General Information and Staff Patient location during procedure: OR Performed by: Sammi Daugherty CRNA Authorized by: Sai Guajardo MD Indications and Patient Condition Indications for airway management: anesthesia and airway protection Preoxygenated: yesPatient position: sniffing Mask difficulty assessment: 1 - easily ventilated by mask Final Airway Details Final airway type: endotracheal airway Successful airway: ETT Cuffed: yes Successful intubation technique: video laryngoscopy Endotracheal tube insertion site: oral Blade: Burgos Blade size: #3 ETT size (mm): 7.0 Cormack-Lehane Classification: grade I - full view of glottis Placement verified by: capnometry Cuff volume (mL): 8 Measured from: lips ETT to lips (cm): 21 Number of attempts at approach: 1 Dentition unchanged Additional Comments Atraumatic ETT placement. Lips, gums, and teeth intact. 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 08/23/2025 Insurance MEDICARE Member Subscriber Plan / Payer (Ef fective 2013-Present) Name:Mayra Craft Member ID:[id number] Relation to Subscriber:Self Name:Mayra Craft Subscriber ID:[id number] Payer ID:Not on file Group ID:Not on file Type:Traditional / Indemnity Address: [address] [place] [address] [place], [place] [address] [place] [address] MEDIC[place] MEDICARE [id number] [place] [address] [id number] [place] [address] [id number] [place] [address] MEDICARE [facility] Advance Directives Documents on File Type Date Recorded Patient Painter Spray Expl anation Health Care Proxy 07/11/2025 1:13 PM Rory Stevens 07/11/2025 * Full Code (Latest Code Status on File) Date Activated Date Inactivated Comments 08/20/2025 8:36 AM Question Answer Comments Discussed with/per: Patient * Full Code Date Activated Date Inactivated Comments 08/01/2025 9:53 PM 08/19/2025 4:43 PM Question Answer Comments Discussed with/per: Patient Healthcare Agents on File Name Relationship Healthcare Agent Relationship Communication Rory Medina Health Care Agent Silvia Stevens Unknown Health Care Age nt - Alternate [email or web address] Care Teams Clinical Care Leader Relationship Specialty Start Date End Date Vanessa Culver MD [address] [place] [address] PCP - General Internal Medicine 08/18/24
--- OUTSIDE RECORDS SUMMARY | 2025-09-11 08:57 | XMS_ITS | Encounter Summary ---
Author Organization [facility] Address [address] [place] [address] Care Team Providers Care Auto Refinisher Name Role Phone Vanessa Culver MD Primary Care Provider [phone] Encounter Details Date Type Department Care Team (Late st Contact Info) Description 11/07/2022 Orders Only [facility] Gastroenterology [address] [place] [address] Qian Loomis, DO [address] [place] [address] Social History Tobacco Use Types Packs/Day Years [...] documented as of this encounter Care Teams Auto Refinisher Relationship Specialty Start Date End Date Vanessa Culver MD [address] [place] [address] PCP - General Internal Medicine 05/24/25 documented as of this encounter
--- OUTSIDE RECORDS SUMMARY | 2025-09-11 08:57 | XMS_ITS | Encounter Summary ---
Author Organization [facility] Address [address] [place] [address] Care Team Providers Care Sawmill Or Timber Yard Worker Name Role Phone Vanessa Culver MD Primary Care Provider [phone] Encounter Details Date Type Department Care Team (Late st Contact Info) Description 09/29/2024 [employer] Message [facility] Financial Clearance Department [address] [place] [address] Mychart, Generic Provider Formerly [facility] [place] [address] Approval Social History Tobacco Use Types Packs/Day [...] documented as of this encounter Care Teams Sawmill Or Timber Yard Worker Relationship Specialty Start Date End Date Vanessa Culver MD [address] [place] [address] PCP - General Internal Medicine 05/24/25 documented as of this encounter
--- OUTSIDE RECORDS SUMMARY | 2025-09-11 08:58 | XMS_ITS | Encounter Summary ---
Author Organization [facility] Address [address] [place] [address] Care Team Providers Care Dolly Driver Name Role Phone Vanessa Culver MD Primary Care Provider [phone] Encounter Details Date Type Department Care Team ([facility] Contact Info) Description 01/12/2019 Orders Only [facility] Adult Medicine [address] [place] [phone] Vanessa Culver MD [facility] [address] [facility] [address] [place] [address] Social History Tobacco Use Types Packs/Day Years [...] Start Date 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 Lalo Grove next November - January 06 CHF documented as of this encounter Goals Goal Patient Goal Type Associated Problems Recent Progress Patient-Stated? Author Quit smoking / using tobacco Lifestyle No Mahogany Ana documented as of this encounter Procedures * Due to [facility] law, this organization might not be sharing negative HIV tests. Procedure Name Priority Date/Time Associated Diagnosis Comments HEMOGLOBIN A1C Routine 01/12/2019 10:59 AM EDT Screening for diabetes mellitus ALBUMIN (MICROALBUMIN), RANDOM URINE, WITH CREATININE Routine 01/12/2019 10:59 AM EDT Hypertension, unspecified type LIPID PANEL WITH REFLEX TO DIRECT LDL Routine 01/12/2019 10:59 AM EDT Screening for hyperlipidemia COMPREHENSIVE METABOLIC PANEL WITH GFR Routine 01/12/2019 10:59 AM EDT Hypertension, unspecified type documented in this encounter Results * Due to [place] [employer] law, this organization might not be sharing negative HIV tests. * ALBUMIN (MICROALBUMIN), RANDOM URINE, WITH CREATININE (01/12/2019 10:59 AM EDT) Albumin (Urine) <1.2 <2.0 mg/dL [facility] Creatinine (Urine) 68 20 - 320 mg/dL [facility] Albumin/Creatini ne (Urine) <18 <30 mcg/mg [facility] Comment: ADA Definitions: Normal: <30 mcg albumin/mg creatinine Microalbuminuria: 30-299 mcg albumin/mg creatinine Clinical albuminuria: > or equal to 300 mcg albumin/mg creatinine The ADA recommends that at least two of three specimens collected within a 3-6 month period be abnormal before considering a patient to be within a diagnostic category. 01/12/2019 10:5 9 AM EDT 01/12/2019 10:59 AM EDT Narrative [facility] - 01/12/2019 1:08 PM EDT fasting Patient's primary care provider is: N/A Testing performed at: [facility], [address] [place] [address], [id number], Instructor Adjunct Pharmacy Technician: Dean Perez MD us Vanessa Culver MD LABORATORY Final Result Performing Organization Address [facility] de Phone Number [address] [address] DIRECTOR Dean Perez MD * HEMOGLOBIN A1C (01/12/2019 10:59 AM EDT) Hemoglobin A1C 5.3 <5.7 % Total [facility] Comment: For diagnostic purposes: <5.7 Decreased risk of diabetes 5.7 - 6.4 Increased risk of diabetes >6.5 Consistent with diabetes Diagnosis of diabetes should be confirmed by repeat testing. Estimated Average Glucose 105 mg/dL(calc ) [facility] 01/12/2019 10:5 9 AM EDT 01/12/2019 10:59 AM EDT Narrative [facility] - 01/12/2019 11:57 AM EDT fasting Patient's primary care provider is: N/A Testing performed at: [facility], [address] [place] [address], [id number], Instructor Adjunct Pharmacy Technician: Dean Perez MD Vanessa Culver MD LABORATORY Final Result Performing Organization Address [facility] de Phone Number [address] [address] DIRECTOR Dean Perez MD * COMPREHENSIVE METABOLIC PANEL WITH GFR (01/12/2019 10:59 AM EDT) Glucose 93 65 - 99 mg/dl [facility] Urea Nitrogen Blood (BUN) 21 7 - 25 mg/dL [facility] Creatinine 0.67 0.50 - 1.16 mg/dL [facility] Sodium 139 136 - 145 mmo/L [facility] Potassium 4.7 3.5 - 5.3 mmol/L [facility] Chloride 102 98 - 107 mmo/L [facility] Calcium 9.0 8.5 - 10.4 mg/dL [facility] Protein Total (Serum) 7.3 6.0 - 8.3 g/dL [facility] Albumin 4.2 3.5 - 5.2 g/dL [facility] Globulin 3 2 - 4 G/DL [facility] Bilirubin Total 0.30 0.00 - 1.20 mg/dL [facility] Alkaline phosphatase 70 33 - 130 U/L [facility] AST (SGOT) 30 <38 U/L [facility] ALT (SGPT) 25 <47 U/L [facility] Carbon dioxide 28 23 - 33 mmol/L [facility] GFR 92 >60 ml/min [facility] Comment:If the patient is Af rican Portuguese, please multiply result by 1.210 01/12/2019 10:5 9 AM EDT 01/12/2019 10:59 AM EDT Narrative [facility] - 01/12/2019 1:16 PM EDT fasting Patient's primary care provider is: N/A Testing performed at: [facility], [address] [place] [address], [id number], Instructor Adjunct Pharmacy Technician: Dean Perez MD us Vanessa Culver MD LABORATORY Final Result [address] [address] DIRECTOR Dean Perez MD * LIPID PANEL WITH REFLEX TO DIRECT LDL (01/12/2019 10:59 AM EDT) Cholesterol 162 <200 mg/dL [facility] Triglyceride 48 <150 mg/dL [facility] HDL Cholesterol 72 >40 mg/dL [facility] Comment: NCEP GUIDELINES Desirable >60 mg/dL Borderline 40-59 mg/dL Undesirable <40 mg/dL LDL Cholesterol 80 <130 mg/dL [facility] CHOL/HDL Ratio 2 0 - 5 CALC [facility] 01/12/2019 10:5 9 AM EDT 01/12/2019 10:59 AM EDT Narrative [facility] - 01/12/2019 1:16 PM EDT fasting Patient's primary care provider is: N/A Testing performed at: [facility], [address] [place] [address], [id number], Instructor Adjunct Pharmacy Technician: Dean Perez MD us Vanessa Culver MD LABORATORY Final Result [address] [address] DIRECTOR Dean Perez MD documented in this encounter Visit Diagnoses Diagnosis Screening for hyperlipidemia Screening for lipoid disorders Hypertension, unspecified type Screening for diabetes mellitus documented in this encounter Care Teams Dolly Driver Relationship Specialty Start Date End Date Vanessa Culver MD PCP - General 08/31/14 documented as of this encounter
--- OUTSIDE RECORDS SUMMARY | 2025-09-11 08:58 | XMS_ITS | Encounter Summary ---
Author Organization [facility] Address [address] [place] [address] Care Team Providers Care Biblical Studies Professor Name Role Phone Vanessa Culver MD Primary Care Provider [phone] Reason for Visit * Reason Comments E-prescribing Refill Request Encounter Details Date Type Department Care Team ([facility] st Contact Info) Description 01/28/2022 Refill [facility] Adult Medicine [address] [place] [address] Vanessa Culver MD [facility] [address] [facility] [address] [place] [address] E-prescribing Refill Request Social History Tobacco Use Types Packs/Day Years Used Date Smoking Tobacco: Former Cigarettes 1 40 0 01/19/1977 - 01/31/2017 Smokeless Tobacco: Never Comments:started at age 14 Alcohol Use Standard Drinks/Week Comments No 0 (1 standard drink = 0.6 oz pure alcohol) used to be an alcoholic , sober since 1991 PHQ-2 Answer Date Recorded PHQ-2 Score 0 06/24/2021 [facility] [place] [facility] Occupat ional Health - Occupational Stress [...] / family Once a week 06/24/2021 Attend oriental orthodox services Never 2020 Club Membership No 06/24/2021 [...] 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 The most recent pharmacy on file was used. When is the medication needed? within 48 hours, will send routine message Past Appointments: Last CPE: 04/28/2018 Last appointment in this department: 08/05/2021 Future Appointments Date Time Provider Department Phone 04/06/22 2:30 PM [facility] MAM[facility]GRAP[facility] RO[facility]1 [facility] Mammography [phone] Pertinent lab results: Lab Results Component Value Date SODIUM 140 11/04/2021 POTASSIUM 4.3 11/04/2021 CHLOR 103 11/04/2021 CO2 29 07/24/2020 BUN 19 11/04/2021 CREATININE 0.72 11/04/2021 GFR 89 06/13/2021 GLUCOSE 87 11/04/2021 MARIANA 9.1 11/04/2021 An overdue or due soon order for a Basic, Potassium or Creatinine exists. An open order for [facility]. Testing recommended a minimum of yearly for chronic therapy . Based on last lab testing intervals, 12 months supply suggested for potassium, diuretics, MELLO inhibitors, ARBs and bone density medications. BP Readings from Last 1 Encounters: 08/05/21 137/80 Pended medication order(s) and sent to provider. Patient expects medication renewal unless notifiedotherwise. Outstanding Lab Orders (Orders in bold are overdue or due now and should be done as soon as possible) Test Expected Date Ordering Provider CBC (H/H, RBC, INDICES,WBC, PLT) 08/03/2019 Vanessa Culver MD ALBUMIN (MICROALBUMIN), RANDOM URINE, WITH CREATININE 07/24/2020 Vanessa Culver MD TSH, 3RD GENERATION 08/02/2020 Vanessa Culver MD CREATININE WITH GLOMERULAR FILTRATION RATE, ESTIMATED (EGFR) 04/08/2021 Vanessa Culver MD BASIC METABOLIC PANEL WITH (GFR) 10/28/2021 Vanessa Culver MD Outstanding Radiology Orders Test Ordered Date Ordering Provider MAMMOGRAPHY BILATERAL (DX: SCREENING FOR BREAST CANCER Z12.31/ V76.12) (1 YR FROM LAST) FC 12/09/2015 Vanessa Culver MD MAMMOGRAPHY BILATERAL (DX: SCREENING FOR BREAST CANCER Z12.31/ V76.12) (1 YR FROM LAST) FC 11/20/2016 Vanessa Culver MD MAMMOGRAPHY BILATERAL (DX: SCREENING FOR BREAST CANCER Z12.31/ V76.12) (1 YR FROM LAST) FC 04/28/2018 Vanessa Culver MD MAMMOGRAPHY BILAT 3D ASHLEY(DX:SCREENING FOR BREAST CA Z12.31)FC 06/20/2020 Vanessa Culver MD DXA BONE DENSITY STUDY AXIAL (LSSPINE, HIP) FC 07/12/2020 Vanessa Culver MD MAMMOGRAM SCREENING TOMOSYNTHESIS, BILATERAL FC 08/05/2021 Vanessa Culver MD documented in this encounter Plan of Treatment Upcoming Encounters Date Type Department Care Team (Late st Contact Info) Description 12/19/2025 1:00 PM EDT Office Visit [facility] [address] [place] [phone] Lalo Grove MD [address] [place] [address] F/u with Dr. Lalo Grove next November - January 06 CHF documented as of this encounter Goals Goal Patient Goal Type Associated Problems Recent Progress Patient-Stated? Author Quit smoking / using tobacco Lifestyle Ana Justin documented as of this encounter Visit Diagnoses Diagnosis Hypertension, unspecified type documented in this encounter Care Teams Biblical Studies Professor Relationship Specialty Start Date End Date Vanessa Culver MD PCP - General 08/31/14 documented as of this encounter
--- OUTSIDE RECORDS SUMMARY | 2025-09-11 08:58 | XMS_ITS | Encounter Summary ---
Author Organization [facility] Address [address] [place] [address] Care Team Providers Care Street Light Servicer Supervisor Name Role Phone Vanessa Culver MD Primary Care Provider [phone] Encounter Details Date Type Department Care Team (Late st Contact Info) Description 10/29/2021 Orders Only [facility] Gastroenterology [address] [place] [address] Qian Loomis, DO [address] [place] [address] Social History Tobacco Use Types Packs/Day Years Used Date Smoking Tobacco: Former Cigarettes Smokeless Tobacco: Never Comments:2017 Alcohol Use Standard [...] documented as of this encounter Care Teams Street Light Servicer Supervisor Relationship Specialty Start Date End Date Vanessa Culver MD [address] [place] [address] PCP - General Internal Medicine 05/24/25 documented as of this encounter
--- OUTSIDE RECORDS SUMMARY | 2025-09-11 08:58 | XMS_ITS | Encounter Summary ---
Author Organization [facility] Address [address] [place] [address] Care Team Providers Care Underground Truck Operator Name Role Phone Vanessa Culver MD Primary Care Provider Encounter Details Date Type Department Care Team (Late st Contact Info) Description 05/07/2021 Orders Only [facility] Gastroenterology [address] [place] [address] Qian Loomis, DO [address] [place] [address] Social History Tobacco Use Types Packs/Day Years [...] documented as of this encounter Care Teams Underground Truck Operator Relationship Specialty Start Date End Date Vanessa Culver MD [address] [place] [address] PCP - General Internal Medicine 05/24/25 documented as of this encounter
--- OUTSIDE RECORDS SUMMARY | 2025-09-11 08:58 | XMS_ITS | Encounter Summary ---
Author Organization [facility] Address [address] [place] [address] Care Team Providers Care Dye Tank Tender Name Role Phone Vanessa Culver MD Primary Care Provider [phone] Encounter Details Date Type Department Care Team (Late st Contact Info) Description 06/15/2022 Orders Only [facility] Gastroenterology [address] [place] [address] Qian Loomis, DO [address] [place] [address] Social History Tobacco Use Types Packs/Day Years [...] documented as of this encounter Care Teams Dye Tank Tender Relationship Specialty Start Date End Date Vanessa Culver MD [address] [place] [address] PCP - General Internal Medicine 05/24/25 documented as of this encounter
--- OUTSIDE RECORDS SUMMARY | 2025-09-11 08:58 | XMS_ITS | Encounter Summary ---
Author Organization [facility] Address [address] [place] [address] Care Team Providers Care Shingle Packer Name Role Phone Vanessa Culver MD Primary Care Provider [phone] Encounter Details Date Type Department Care Team ([facility] st Contact Info) Description 02/27/2025 Orders Only [facility] Cardiology Entrance C [address] [place] [address] Staci Munoz, MIKIE [address] [facility] [address] [place] [address] Social History Tobacco Use Types Packs/Day Years Used Date Smoking Tobacco: Former Cigarettes 1 40 0 01/19/1977 - 01/31/2017 Smokeless Tobacco: Never Comments:started at age 14 Alcohol Use Standard Drinks/Week Comments No 0 (1 standard drink = 0.6 oz pure alcohol) used to be an alcoholic , sober since 1991 PHQ-2 Answer Date Recorded PHQ-2 Score 0 06/24/2021 [facility] of Occupat ional Health - Occupational Stress [...] / family Once a week 06/24/2021 Attend mandaeism services Never 2020 Club Membership No 06/24/2021 [...] 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 Lalo Grove next November - January 06 CHF documented as of this encounter Goals Goal Patient Goal Type Associated Problems Recent Progress Patient-Stated? Author Quit smoking / using tobacco Lifestyle No Ana Vides documented as of this encounter Procedures * Due to [place] [employer] law, this organization might not be sharing negative HIV tests. Procedure Name Priority Date/Time Associated Diagnosis Comments CBC INCLUDES DIFFERENTIAL AND PLATELET COUNT Routine 02/27/2025 2:23 PM EDT NSVT (nonsustained ventricular tachycardia) (HCC) Chronic HFrEF (heart failure with reduced ejection fraction) (HCC) BASIC METABOLIC PANEL WITH (GFR) Routine 02/27/2025 2:23 PM EDT NSVT (nonsustained ventricular tachycardia) (HCC) Chronic HFrEF (heart failure with reduced ejection fraction) (HCC) documented in this encounter Results * Due to [place] [employer] law, this organization might not be sharing negative HIV tests. * (ABNORMAL) BASIC METABOLIC PANEL WITH (GFR) (02/27/2025 2:23 PM EDT) Glucose 119(H) 65 - 99 mg/dl [facility] Urea Nitrogen Blood (BUN) 26(H) 7 - 25 mg/dL [facility] Creatinine 0.74 0.50 - 1.16 mg/dL [facility] Sodium 138 135 - 146 mmo/L [facility] Potassium 3.4(L) 3.5 - 5.3 mmol/L [facility] Chloride 102 98 - 107 mmo/L [facility] Carbon dioxide 30 23 - 33 mmol/L [facility] Calcium 9.0 8.5 - 10.4 mg/dL [facility] GFR 81 >60 ml/min [facility] 02/27/2025 2:23 PM EDT 02/27/2025 2:23 PM EDT Narrative [facility] - 02/27/2025 3:36 PM EDT Patient's primary care provider is: N/A Testing performed at: [facility], [address] [place] [address], [id number], Care Consultant: Brianne Jefferson MD us Staci Munoz NP LABORATORY Final Result [address] Brianne Jefferson MD * (ABNORMAL) CBC INCLUDES DIFFERENTIAL AND PLATELET COUNT (02/27/2025 2:23 PM EDT) WBC 5.0 3.8 - 10.8 K/uL [facility] Neutrophils # 2.7 1.5 - 7.8 K/uL [facility] Lymphocytes # 1.7 0.9 - 3.9 K/uL [facility] Monocytes # 0.4 0.2 - 1.0 K/uL [facility] Eosinophils # 0.2 0.0 - 0.5 K/uL [facility] Basophils # 0.0 0.0 - 0.2 K/uL [facility] Immature Granulocytes # 0.0 0.0 - 0.1 K/uL [facility] Neutrophils % 54.9 % [facility] Lymphocytes % 33.7 % [facility] Monocytes % 7.8 % [facility] Eosinophils % 3.0 % [facility] Basophils % 0.6 % [facility] Immature Granulocytes % 0.00 % [facility] RBC 4.23 3.80 - 5.10 M/uL [facility] Hemoglobin 12.2 11.7 - 15.5 g/dL [facility] Hematocrit 38.2 35.0 - 45.0 % [facility] MCV 90.3 80.0 - 100.0 fl [facility] MCH 28.8 27.0 - 33.0 pg [facility] MCHC 31.9(L) 32.0 - 36.0 g/dL [facility] RDW 13.8 11.0 - 15.0 % [facility] PLT 155 140 - 400 K/uL [facility] 02/27/2025 2:23 PM EDT 02/27/2025 2:23 PM EDT Narrative [facility] - 02/27/2025 3:00 PM EDT Patient's primary care provider is: N/A Testing performed at: [facility], [address] [place] [address], [phone], Care Consultant: Brianne Jefferson MD us Staci Munoz DIAL EQUIPMENT ENGINEER LAB SAME DAY RESULT Final Res ult [facility] [address] [place] [address] Brianne Jefferson MD documented in this encounter Visit Diagnoses Diagnosis NSVT (nonsustained ventricular tachycardia) (HCC) Paroxysmal ventricular tachycardia Chronic HFrEF (heart failure with reduced ejection fraction) (HCC) documented in this encounter Care Teams Shingle Packer Relationship Specialty Start Date End Date Vanessa Culver MD PCP - General 08/31/14 documented as of this encounter
--- OUTSIDE RECORDS SUMMARY | 2025-09-11 08:58 | XMS_ITS | Encounter Summary ---
Author Organization [facility] Address [address] [place] [address] Care Team Providers Care Vocational Teacher Name Role Phone Vanessa Culver MD Primary Care Provider [phone] Encounter Details Date Type Department Care Team (Late st Contact Info) Description 08/20/2022 Orders Only [facility] Interventional Radiology [address] [place] [phone] Louis Mccoy MD [address] [facility] Interventional Radiology [place], [place] [phone] Social History Tobacco Use Types Packs/Day Years [...] documented as of this encounter Care Teams Vocational Teacher Relationship Specialty Start Date End Date Vanessa Culver MD [address] [place] [address] PCP - General Internal Medicine 05/24/25 documented as of this encounter
--- OUTSIDE RECORDS SUMMARY | 2025-09-11 08:58 | XMS_ITS | Encounter Summary ---
Author Organization [facility] Address [address] [place] [address] Care Team Providers Care Stand Up Comedian Name Role Phone Vanessa Culver MD Primary Care Provider [phone] Encounter Details Date Type Department Care Team (Late st Contact Info) Description 08/06/2021 Orders Only [facility] Gastroenterology [address] [place] [address] Qian Loomis, DO [address] [place] [address] Social History Tobacco Use Types Packs/Day Years [...] documented as of this encounter Care Teams Stand Up Comedian Relationship Specialty Start Date End Date Vanessa Culver MD [address] [place] [address] PCP - General Internal Medicine 05/24/25 documented as of this encounter
--- OUTSIDE RECORDS SUMMARY | 2025-09-11 08:58 | XMS_ITS | Encounter Summary ---
Author Organization [facility] Address [address] [place] [address] Care Team Providers Care Chief Chemist Name Role Phone Vanessa Culver MD Primary Care Provider [phone] Encounter Details Date Type Department Care Team (Late st Contact Info) Description 06/16/2021 Orders Only [facility] Gastroenterology [address] [place] [address] Qian Loomis, DO [address] [place] [address] Social History Tobacco Use Types Packs/Day Years [...] documented as of this encounter Care Teams Chief Chemist Relationship Specialty Start Date End Date Vanessa Culver MD [address] [place] [address] PCP - General Internal Medicine 05/24/25 documented as of this encounter
--- OUTSIDE RECORDS SUMMARY | 2025-09-11 08:58 | XMS_ITS | Encounter Summary ---
Author Organization [facility] Address [address] [place] [address] Care Team Providers Care Home Performance Laborer Name Role Phone Vanessa Culver MD Primary Care Provider [phone] Encounter Details Date Type Department Care Team ([facility] st Contact Info) Description 01/16/2025 Orders Only [facility] Cardiology Entrance C [address] [place] [address] Staci Munoz, MIKIE [address] [facility] [address] [place] [address] Social History Tobacco Use Types Packs/Day Years Used Date Smoking Tobacco: Former Cigarettes 1 40 0 01/19/1977 - 01/31/2017 Smokeless Tobacco: Never Comments:started at age 14 Alcohol Use Standard Drinks/Week Comments No 0 (1 standard drink = 0.6 oz pure alcohol) used to be an alcoholic , sober since 1991 PHQ-2 Answer Date Recorded PHQ-2 Score 0 06/24/2021 [facility] [place] of Occupat ional Health - Occupational Stress [...] / family Once a week 06/24/2021 Attend catholic services Never 2020 Club Membership No 06/24/2021 [...] 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 Lalo Grove next November - January 06 CHF documented as of this encounter Goals Goal Patient Goal Type Associated Problems Recent Progress Patient-Stated? Author Quit smoking / using tobacco Lifestyle No Ana Vides documented as of this encounter Procedures * Due to [place] [employer] law, this organization might not be sharing negative HIV tests. Procedure Name Priority Date/Time Associated Diagnosis Comments PROBNP, N TERMINAL Routine 01/16/2025 1: 39 PM EDT Hypertension, unspecified type NSVT (nonsustained ventricular tachycardia) (HCC) PVC (premature ventricular contraction) SSS (sick sinus syndrome) (HCC) Atrial tachycardia (HHS) NSVT (nonsustained ventricular tachycardia) Dyspnea, unspecified type BASIC METABOLIC PANEL WITH (GFR) Routine 01/16/2025 1:39 PM EDT Hypertension, unspecified type NSVT (nonsustained ventricular tachycardia) (HCC) PVC (premature ventricular contraction) SSS (sick sinus syndrome) (HCC) S/P placement of cardiac pacemaker NSVT (nonsustained ventricular tachycardia) Coronary artery disease involving eek coronary artery of eek heart without angina pectoris Dyspnea, unspecified type documented in this encounter Results * Due to [place] [employer] law, this organization might not be sharing negative HIV tests. * PROBNP, N TERMINAL (01/16/2025 1:39 PM EDT) Natriuretic peptide.B prohormone 393 0 - 1,800 pg/mL [facility] 01/16/2025 1:39 PM EDT 01/16/2025 1:39 PM EDT Narrative [facility] - 01/16/2025 2:26 PM EDT Patient's primary care provider is: N/A Testing performed at: [facility], [address] [place] [address], [id number], Training Representative: Dean Perez MD us Staci Munoz NP LABORATORY Final Result [address] Brianne Jefferson MD * (ABNORMAL) BASIC METABOLIC PANEL WITH (GFR) (01/16/2025 1:39 PM EDT) Glucose 103(H) 65 - 99 mg/dl [facility] Urea Nitrogen Blood (BUN) 31(H) 7 - 25 mg/dL [facility] Creatinine 0.82 0.50 - 1.16 mg/dL [facility] Sodium 136 135 - 146 mmo/L [facility] Potassium 4.2 3.5 - 5.3 mmol/L [facility] Chloride 100 98 - 107 mmo/L [facility] Carbon dioxide 30 23 - 33 mmol/L [facility] Calcium 9.0 8.5 - 10.4 mg/dL [facility] GFR 72 >60 ml/min [facility] 01/16/2025 1:39 PM EDT 01/16/2025 1:39 PM EDT Narrative [facility] - 01/16/2025 2:50 PM EDT Patient's primary care provider is: N/A Testing performed at: [facility], [address] [place] [address], [id number], Training Representative: Dean Perez MD Staci Munoz NP LABORATORY Final Result [address] Brianne Jefferson MD documented in this encounter Visit Diagnoses Diagnosis Hypertension, unspecified type NSVT (nonsustained ventricular tachycardia) Paroxysmal ventricular tachycardia PVC (premature ventricular contraction) Other premature beats SSS (sick sinus syndrome) (HCC) Sinoatrial node dysfunction S/P placement of cardiac pacemaker Cardiac pacemaker in situ Coronary artery disease involving eek coronary artery of eek heart without angina pectoris Dyspnea, unspecified type Atrial tachycardia (HHS) Other specified cardiac dysrhythmias documented in this encounter Care Teams Home Performance Laborer Relationship Specialty Start Date End Date Vanessa Culver MD PCP - General 08/31/14 documented as of this encounter
--- OUTSIDE RECORDS SUMMARY | 2025-09-11 08:58 | XMS_ITS | Encounter Summary ---
Author Organization [facility] Address [address] [place] [address] Care Team Providers Care Pathological Technician Name Role Phone Vanessa Culver MD Primary Care Provider [phone] Encounter Details Date Type Department Care Team (Late st Contact Info) Description 07/14/2022 Orders Only [facility] Gastroenterology [address] [place] [address] Qian Loomis, DO [address] [place] [address] Social History Tobacco Use Types Packs/Day Years [...] documented as of this encounter Care Teams Pathological Technician Relationship Specialty Start Date End Date Vanessa Culver MD [address] [place] [address] PCP - General Internal Medicine 05/24/25 documented as of this encounter
--- OUTSIDE RECORDS SUMMARY | 2025-09-11 08:58 | XMS_ITS | Encounter Summary ---
Author Organization [facility] Address [address] [place] [address] Care Team Providers Care Cutter Machine Name Role Phone Vanessa Culver MD Primary Care Provider Encounter Details Date Type Department Care Team (Late st Contact Info) Description 09/29/2021 Orders Only [facility] Gastroenterology [address] [place] [address] Qian Loomis, DO [address] [place] [address] Social History Tobacco Use Types Packs/Day Years [...] documented as of this encounter Care Teams Cutter Machine Relationship Specialty Start Date End Date Vanessa Culver MD [address] [place] [address] PCP - General Internal Medicine 05/24/25 documented as of this encounter
--- OUTSIDE RECORDS SUMMARY | 2025-09-11 08:58 | XMS_ITS | Encounter Summary ---
Author Organization [facility] Address [address] [place] [address] Care Team Providers Care Business Development Officer Name Role Phone Vanessa Culver MD Primary Care Provider [phone] Encounter Details Date Type Department Care Team (Late st Contact Info) Description 08/15/2021 Orders Only [facility] Gastroenterology [address] [place] [address] Qian Loomis, DO [address] [place] [address] Social History Tobacco Use Types Packs/Day Years [...] documented as of this encounter Care Teams Business Development Officer Relationship Specialty Start Date End Date Vanessa Culver MD [address] [place] [address] PCP - General Internal Medicine 05/24/25 documented as of this encounter
--- OUTSIDE RECORDS SUMMARY | 2025-09-11 08:58 | XMS_ITS | Encounter Summary ---
Author Organization [facility] Address [address] [place] [address] Care Team Providers Care Records Technician Name Role Phone Vanessa Culver MD Primary Care Provider Encounter Details Date Type Department Care Team (Late st Contact Info) Description 09/14/2023 Orders Only [facility] Gastroenterology [address] [place] [address] Qian Loomis, DO [address] [place] [address] Social History Tobacco Use Types Packs/Day Years [...] documented as of this encounter Care Teams Records Technician Relationship Specialty Start Date End Date Vanessa Culver MD [address] [place] [address] PCP - General Internal Medicine 05/24/25 documented as of this encounter
--- OUTSIDE RECORDS SUMMARY | 2025-09-11 08:58 | XMS_ITS | Encounter Summary ---
Author Organization [facility] Address [address] [place] [address] Care Team Providers Care Electrical Accessories I Assembler Name Role Phone Vanessa Culver MD Primary Care Provider [phone] Encounter Details Date Type Department Care Team ([facility] Contact Info) Description 08/03/2019 Orders Only [facility] Adult Medicine [address] [place] [phone] Vanessa Culver MD 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 Lalo Grove next November - January 06 CHF documented as of this encounter Goals Goal Patient Goal Type Associated Problems Recent Progress Patient-Stated? Author Quit smoking / using tobacco Lifestyle No AcericAna documented as of this encounter Procedures * Due to [place] [employer] law, this organization might not be sharing negative HIV tests. Procedure Name Priority Date/Time Associated Diagnosis Comments VENIPUNCTURE Routine 08/03/2019 2:13 PM EST Anemia, unspecified type documented in this encounter Results * Due to [place] [employer] law, this organization might not be sharing negative HIV tests. * (ABNORMAL) CBC (H/H, RBC, INDICES,WBC, PLT) (08/03/2019 2:13 PM EST) WBC 5.4 3.8 - 10.8 K/uL [facility] RBC 3.63(L) 3.80 - 5.10 M/uL [facility] Hemoglobin 11.2(L) 11.7 - 15.5 g/dL [facility] Hematocrit 35.7 35.0 - 45.0 % [facility] MCV 98.3 80.0 - 100.0 fl [facility] MCH 30.9 27.0 - 33.0 pg [facility] MCHC 31.4(L) 32.0 - 36.0 g/dL [facility] RDW 14.1 11.0 - 15.0 % [facility] PLT 238 140 - 400 K/uL [facility] 08/03/2019 2:13 PM EST 08/03/2019 2:13 PM EST Narrative [facility] - 08/03/2019 3:06 PM EST Patient's primary care provider is: N/A Testing performed at: [facility], [address] [place] [address], [id number], Set And Exhibit Designer: Dean Perez MD us Vanessa Culver MD LAB SAME DAY RESULT Final Resu lt [address] [address] DIRECTOR Dean Perez MD documented in this encounter Visit Diagnoses Diagnosis Anemia, unspecified type documented in this encounter Care Teams Electrical Accessories I Assembler Relationship Specialty Start Date End Date Vanessa Culver MD PCP - General 08/31/14 documented as of this encounter
--- OUTSIDE RECORDS SUMMARY | 2025-09-11 08:58 | XMS_ITS | Encounter Summary ---
Author Organization [facility] Address [address] [place] [address] Care Team Providers Care Dog And Cat Food Cook Name Role Phone Vanessa Culver MD Primary Care Provider [phone] Encounter Details Date Type Department Care Team (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 Contact Info) Description 12/19/2025 1:00 PM EDT Office Visit [address] [phone] Lalo Grove MD [address] [place] [address] F/u with Dr. Lalo Grove next November - January 06 CHF documented as of this encounter Goals Goal Patient Goal Type Associated Problems Recent Progress Patient-Stated? Author Quit smoking / using tobacco Lifestyle No AcericAna documented as of this encounter Procedures * Due to [place] [employer] law, this organization might not be sharing negative HIV tests. Procedure Name Priority Date/Time Associated Diagnosis Comments EKG-USE ONLY IN [facility]/OCC MED/CARDIO Routine 02/09/2019 9:36 AM EDT Hypertension, unspecified type documented in this encounter Results * Due to [place] [employer] law, this organization might not be sharing negative HIV tests. * EKG-USE ONLY IN [facility]/OCC MED/CARDIO (02/09/2019 9:36 AM EDT) VENTRICULAR RATE 50 BPM MUS E EKG SYSTEM ATRIAL RATE 50 BPM MUSE EKG SYSTEM P-R INTERVAL 180 ms MUSE EK G SYSTEM QRS DURATION 108 ms MUSE EK G SYSTEM QT 430 ms MUSE EKG SYSTEM QTC 392 ms MUSE EKG SYSTEM P AXIS 76 degrees MUSE EKG SYSTEM R AXIS 23 degrees MUSE EKG SYSTEM T AXIS 2 degrees MUSE EKG SYSTEM EKG INTERPRETATION Sinus bradycardia Otherwise normal ECG When compared with ECG of 03-AUG-2018 11:52, No significant change was found Confirmed by MENDEL ELAINE ([id number]) on 02/10/2019 8:42:55 PM MUSE EKG SYSTEM 02/09/2019 9:36 AM EDT 02/10/2019 8:42 PM EDT us Vanessa Culver MD CARDIOVASCULAR-WITH INBSKT RTG Final Result MUSE EKG SYSTEM documented in this encounter Visit Diagnoses Diagnosis Hypertension, unspecified type documented in this encounter Care Teams Dog And Cat Food Cook Relationship Specialty Start Date End Date Vanessa Culver MD PCP - General 08/31/14 documented as of this encounter
--- OUTSIDE RECORDS SUMMARY | 2025-09-11 08:58 | XMS_ITS | Encounter Summary ---
Author Organization [facility] Address [address] [place] [address] Care Team Providers Care Lathe Set Up Person Name Role Phone Vanessa Culver MD Primary Care Provider [phone] Encounter Details Date Type Department Care Team (Late st Contact Info) Description 03/02/2023 Orders Only [facility] Gastroenterology [address] [place] [address] Qian Loomis, DO [address] [place] [address] Social History Tobacco Use Types Packs/Day Years [...] documented as of this encounter Care Teams Lathe Set Up Person Relationship Specialty Start Date End Date Vanessa Culver MD [address] [place] [address] PCP - General Internal Medicine 05/24/25 documented as of this encounter
--- OUTSIDE RECORDS SUMMARY | 2025-09-11 08:58 | XMS_ITS | Encounter Summary ---
Author Organization [facility] Address [address] [place] [address] Care Team Providers Care Stave Machine Tender Name Role Phone Vanessa Culver MD Primary Care Provider [phone] Encounter Details Date Type Department Care Team ([facility] st Contact Info) Description 04/03/2021 Orders Only [facility] Adult Medicine [address] [place] [phone] Vanessa Culver MD [facility] [address] [facility] [address] [place] [address] Social History Tobacco Use Types Packs/Day Years Used Date Smoking Tobacco: Former Cigarettes 1 40 0 01/19/1977 - 01/31/2017 Smokeless Tobacco: Never Comments:started at age 14 Alcohol Use Standard Drinks/Week Comments No 0 (1 standard drink = 0.6 oz pure alcohol) used to be an alcoholic , sober since 1991 PHQ-2 Answer Date Recorded PHQ-2 Score 0 11/14/2020 [facility] of Occupat ional Health - Occupational Stress [...] Safe at Home Not on file 11/14/2020 Comments No Sex and Gender Information Value Date Recorded Sex Assigned at Not on file Legal Sex Female 8:31 PM EST Gender Identity Not on file Sexual Orientation Not on file 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 Lalo Grove next November - January 06 CHF documented as of this encounter Goals Goal Patient Goal Type Associated Problems Recent Progress Patient-Stated? Author Quit smoking / using tobacco Lifestyle No Ana Vides documented as of this encounter Procedures * Due to [place] law, this organization might not be sharing negative HIV tests. Procedure Name Priority Date/Time Associated Diagnosis Comments VENIPUNCTURE Routine 04/03/2021 11:32 AM EDT Hypothyroidism, unspecified type documented in this encounter Results * Due to [place] law, this organization might not be sharing negative HIV tests. * (ABNORMAL) TSH, 3RD GENERATION (04/03/2021 11:32 AM EDT) TSH (Thyrotropin) 6.26(H) 0.40 - 4.50 uIU/ml [facility] 04/03/2021 11:3 2 AM EDT 04/03/2021 11:32 AM EDT Narrative [facility] - 04/04/2021 11:36 AM EDT Patient's primary care provider is: N/A Testing performed at: [facility], [address] [place] [address], [id number], Cargo Services Coordinator: Dean Perez MD us Vanessa Culver MD LABORATORY Final Result [address] [address] DIRECTOR Dean Perez MD documented in this encounter Visit Diagnoses Diagnosis Hypothyroidism, unspecified type documented in this encounter Care Teams Stave Machine Tender Relationship Specialty Start Date End Date Vanessa Culver MD PCP - General 08/31/14 documented as of this encounter
--- OUTSIDE RECORDS SUMMARY | 2025-09-11 08:58 | XMS_ITS | Encounter Summary ---
Author Organization [facility] Address [address] [place] [address] Care Team Providers Care Pulping Machine Operator Name Role Phone Vanessa Culver MD Primary Care Provider [phone] Encounter Details Date Type Department Care Team (Late st Contact Info) Description 11/11/2021 Orders Only [facility] Gastroenterology [address] [place] [address] Qian Loomis, DO [address] [place] [address] Social History Tobacco Use Types Packs/Day Years [...] documented as of this encounter Care Teams Pulping Machine Operator Relationship Specialty Start Date End Date Vanessa Culver MD [address] [place] [phone] PCP - General Internal Medicine 05/24/25 documented as of this encounter
--- OUTSIDE RECORDS SUMMARY | 2025-09-11 08:58 | XMS_ITS | Encounter Summary ---
Author Organization [facility] Address [address] [place] [address] Care Team Providers Care Asset Protection Agent Name Role Phone Vanessa Culver MD Primary Care Provider [phone] Encounter Details Date Type Department Care Team (Late st Contact Info) Description 05/15/2022 Orders Only [facility] Gastroenterology [address] [place] [address] Qian Loomis, DO [address] [place] [address] Social History Tobacco Use Types Packs/Day Years [...] documented as of this encounter Care Teams Asset Protection Agent Relationship Specialty Start Date End Date Vanessa Culver MD [address] [place] [phone] PCP - General Internal Medicine 05/24/25 documented as of this encounter
--- OUTSIDE RECORDS SUMMARY | 2025-09-11 08:58 | XMS_ITS | Encounter Summary ---
Author Organization [facility] Address [address] [place] [address] Care Team Providers Care Campground Attendant Name Role Phone Vanessa Culver MD Primary Care Provider [phone] Reason for Visit * Reason Comments E-prescribing Refill Request Encounter Details Date Type Department Care Team ([facility] st Contact Info) Description 01/28/2022 Refill [facility] Adult Medicine [address] [place] [phone] Vanessa Culver MD [facility] [address] [facility] [address] [place] [address] E-prescribing Refill Request Social History Tobacco Use Types Packs/Day Years Used Date Smoking Tobacco: Former Cigarettes 1 40 0 01/19/1977 - 01/31/2017 Smokeless Tobacco: Never Comments:started at age 14 Alcohol Use Standard Drinks/Week Comments No 0 (1 standard drink = 0.6 oz pure alcohol) used to be an alcoholic , sober since 1991 PHQ-2 Answer Date Recorded PHQ-2 Score 0 06/24/2021 [facility] [place] of Occupat ional Health - Occupational Stress [...] / family Once a week 06/24/2021 Attend sikhism services Never 2020 Club Membership No 06/24/2021 [...] 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 Lalo Grove next November - January 06 CHF documented as of this encounter Goals Goal Patient Goal Type Associated Problems Recent Progress Patient-Stated? Author Quit smoking / using tobacco Lifestyle Ana Justin documented as of this encounter Visit Diagnoses Diagnosis Hypertension, unspecified type documented in this encounter Care Teams Campground Attendant Relationship Specialty Start Date End Date Vanessa Culver MD PCP - General 08/31/14 documented as of this encounter
--- OUTSIDE RECORDS SUMMARY | 2025-09-11 08:58 | XMS_ITS | Encounter Summary ---
Author Organization [facility] Address [address] [place] [address] Care Team Providers Care Big Machine Consultant Name Role Phone Vanessa Culver MD Primary Care Provider [phone] Encounter Details Date Type Department Care Team (Late st Contact Info) Description 11/21/2021 Orders Only [facility] Gastroenterology [address] [place] [address] Qian Loomis, DO [address] [place] [address] Social History Tobacco Use Types Packs/Day Years [...] documented as of this encounter Care Teams Big Machine Consultant Relationship Specialty Start Date End Date Vanessa Culver MD [address] [place] [phone] PCP - General Internal Medicine 05/24/25 documented as of this encounter
--- OUTSIDE RECORDS SUMMARY | 2025-09-11 08:58 | XMS_ITS | Encounter Summary ---
Author Organization [facility] Address [address] [place] [address] Care Team Providers Care Magazine Publisher Name Role Phone Vanessa Culver MD Primary Care Provider [phone] Encounter Details Date Type Department Care Team (Late st Contact Info) Description 09/16/2023 Orders Only [facility] Gastroenterology [address] [place] [address] Qian Loomis, DO [address] [place] [address] Social History Tobacco Use Types Packs/Day Years [...] documented as of this encounter Care Teams Magazine Publisher Relationship Specialty Start Date End Date Vanessa Culver MD [address] [place] [address] PCP - General Internal Medicine 05/24/25 documented as of this encounter
--- OUTSIDE RECORDS SUMMARY | 2025-09-11 08:58 | XMS_ITS | Clinical Summary ---
Author Organization [facility] Address [address] [place] [address] Care Team Providers Care Alto Singer Name Role Phone Vanessa Culver MD Primary Care Provider [phone] Allergies Active Allergy Reactions Criticality Noted Date Comments Gabapentin Other 05/29/2025 Psychological Tetracycline Urticarial Rash,Maculopapular Rash Medium 07/04/2007 Hives; In mouth Tetracyclines & Related Maculopapular Rash Medium 01/11 Medications * This document contains information received from the source organization and may not represent a complete record from that organization. OxyCODONE HCl 10 MG Tab TK 1 T PO Q 6 HOURS PRN P 0 7 Active oxyCODONE ER (XTAMPZA ER) 36 MG Capsule Extended Release 12 hour Abuse-Deterrent Xtampza ER 36 mg capsule sprinkle Active B Complex Cap Take 1 capsule by mouth 1 (one) time each day Active Ascorbic Acid (VITAMIN C) 500 MG Cap Take 1 capsule by mouth 1 (one) time each day Active oxyCODONE ER (Xtampza ER) 9 MG Capsule Extended Release 12 hour Abuse-Deterrent Take 9 mg by mouth in the morning and at bedtime 0 Active Levothyroxine Sodium (SYNTHROID, LEVOTHROID) 50 MCG tabletIndication s:Hypothyroidism , unspecified type Take one tablet (50 mcg total) by mouth 1 (one) time each day 90 tablet 2 2 Active Vitamin D, Ergocalciferol, (VITAMIN D-2) 1.25 MG (82589 UT) capsule Take 1 capsule by mouth 1 (one) time per week 2 Active QUEtiapine Fumarate (SEROquel) 50 MG tabletIndication s:Generalized anxiety disorder Take one tablet (50 mg total) by mouth every night 90 tablet 2 Active Additional Information Patient not taking.Reported on 05/29/2025 Sertraline HCl (ZOLOFT) 25 MG tablet Take one tablet (25 mg total) by mouth 1 (one) time each day 90 tablet 2 Active Additional Information Patient not taking.Reported on 05/29/2025 cycloSPORINE (RESTASIS) 0.05 % ophthalmic emulsionIndicati ons:NSVT (nonsustained ventricular tachycardia) (HCC),Thoracic aortic ectasia,Coronary artery disease involving nikolski coronary artery of nikolski heart without angina pectoris,Nonrheu matic mitral valve regurgitation,PV C (premature ventricular contraction) Administer 1 drop into the affected eye(s) 2 (two) times a day 3 Active Ibuprofen (ADVIL,MOTRIN) 800 MG tabletIndication s:NSVT (nonsustained ventricular tachycardia) (HCC),Thoracic aortic ectasia,Coronary artery disease involving nikolski coronary artery of nikolski heart without angina pectoris,Nonrheu matic mitral valve regurgitation,PV C (premature ventricular contraction) if needed 2 Active Zenpep [address] Particles 3 Active Ventolin HFA 108 (90 Base) MCG/ACT inhaler INHALE 2 PUFFS EVERY 4 HOURS NEEDED FOR SHORTNESS OF BREATH AND WHEEZING 3 Active Breztri Aerosphere 160-9-4.8 MCG/ACT inhaler Inhale 160 mcg. Active traMADol HCl (ULTRAM) 50 MG tablet 4 Active Sertraline (ZOLOFT) 50 MG tablet 4 Active predniSONE (DELTASONE) 10 MG tablet 4 Active Gabapentin (NEURONTIN) 100 MG capsule Take 1 capsule by mouth 1 (one) time each day. 5 Active Naloxone (NARCAN) 4 MG/0.1ML nasal spray CALL 911. SPR CONTENTS OF ONE SPRAYER (0.1ML) INTO ONE NOSTRIL. REPEAT IN 2-3 MIN IF SYMPTOMS OF OPIOID EMERGENCY PERSIST, ALTERNATE NOSTRILS 4 Active busPIRone HCl (BUSPAR) 15 MG tablet Take 5 mg by mouth 3 (three) times a day. 5 Active Cephalexin (KEFLEX) 500 MG capsule Take 1 capsule by mouth 3 (three) times a day. 5 Active LORazepam (ATIVAN) 0.5 MG tablet TAKE 1 TO 2 TABLETS BY MOUTH 1 HOUR BEFORE PROCEDURE 5 Active Atorvastatin Calcium (LIPITOR) 20 MG tabletIndication s:PVC (premature ventricular contraction),S/P placement of cardiac pacemaker,NSVT (nonsustained ventricular tachycardia) (HCC),Coronary artery disease involving nikolski coronary artery of nikolski heart without angina pectoris,Dyspnea , unspecified type Take one tablet (20 mg total) by mouth 1 (one) time each day. 90 tablet 3 5 04/26/20 26 Active Sacubitril-Valsa rtan (Entresto) 24-26 MG per tablet Take one tablet by mouth 2 (two) times a day Half tablet in the morning and evening. 90 tablet 3 5 09/12/20 25 Active Furosemide (LASIX) 20 MG tabletIndication s:Dyspnea, unspecified type Take one tablet (20 mg total) by mouth 3 (three) times a week. 36 tablet 3 5 Active Potassium Chloride CR (MICRO-K) 10 MEQ CR capsuleIndicatio ns:Chronic heart failure with preserved ejection fraction (HCC) Take one capsule (10 mEq total) by mouth 1 (one) time each day. 90 capsule 1 5 Active Buprenorphine HCl-Naloxone HCl (SUBOXONE) 8-2 MG [address] film Place 1 Film under the tongue 3 (three) times a day. 5 Active cloNIDine HCl (CATAPRES) 0.1 MG tablet Take 0.1 mg by mouth 1 (one) time each day if needed. 5 Active Cyclobenzaprine HCl (FLEXERIL) 5 MG tablet Take 5 mg by mouth if needed. 5 Active Metoprolol Succinate (TOPROL-XL) 25 MG 24 hr tabletIndication s:Hypertension, unspecified type,NSVT (nonsustained ventricular tachycardia) (HCC),SSS (sick sinus syndrome) (HCC),S/P placement of cardiac pacemaker,Atrial tachycardia (HHS),PVC (premature ventricular contraction) Take one tablet (25 mg total) by mouth 1 (one) time each day. 30 tablet 11 5 08/09/20 26 Active Magnesium 100 MG Cap Take by mouth. Activ e Active Problems Patient Care Coordination No te Formatting of this note migh t be different from the original. 02/29/2020 Re: Case Management Services Dear Mayra Ziegler, As part of our Care Management Program efforts to help you manage your health and feel better, please reference the enclosed Self-Management Action Plan. Display this plan where it will remind you daily of your actions to progress toward your goals. Please call me if you have any questions, or if I can assist you with achieving your personal health goals. Sincerely, Alek Jones RN [facility] [employer] [facility] Enclosure: Self-Management Action Plan Self-Management Action Plan for: [] Eat Better [] Manage My Weight [x] Take My Medicine [x] [place] with Stress [] Exercise More [] Reduce Unhealthy Habits My Prioritized Goal(s): (What I want to do - example: start exercising) Note: #1 most important, #4 least important. 1. Diesel Technician my COPD 2. Manage my Chronic Pancreatitis 3. Manage my Abdominal muscle rupture/Hematoma My Action Plan: (How I will do this - example: walking) 1. Take Symbicort and Albuterol inhaler as ordered, report changes in respiratory function to PCP office 2. Take medications as ordered to control pain and acute exacerbation, report unrelieved pain, nausea, or vomiting to PCP 3. No heavy lifting, monitor for acute changes such as pain or hematoma formation. 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 Uncomplicated opioid dependence 03/11/2022 Overview (03/11/2022): Refer to [facility] OV 11/04/21: Encounter diagnosis: Uncomplicated opioid dependence (CMS/HCC) (Primary Dx); Thyroid nodule ,5-6 MM , 202102/05/2022 Thoracic aortic ectasia (HCC ) , 4.4 cm ,seen on chest CT 04/02 , STABLE BY NOVEMBER 2021 08/05/2021 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 Cardiac consult scheduled for 09/20/2019 Rectus sheath hematoma 08/03/2019 Status post cataract extract ion and insertion of intraocular lens of left eye 03/24/2019 Hypertension 02/09/2019 Posterior vitreous detachment of both eyes 01/16 History of arthroscopy of knee 08/23/2018 Cough 10/18/2017 Left sided chest pain 10/18/2017 Overview (12/04/2018): History of tobacco use 10/18/2017 Insomnia 06/29/2017 Generalized anxiety disorder 05/27/2017 Adenocarcinoma of left lung 04/19/2017 Hx of cancer of lung , s/p segmental lung resect ion 04/08/2017 Nasopharyngeal mass 02/04/2017 Cervical lymphadenopathy 02/04/2017 Centrilobular emphysema 01/19/2017 Shortness of breath 01/19/2017 Solitary pulmonary nodule 01/19/2017 Pulmonary emphysema 01/18/2017 Osteoporosis 11/20/2016 Vitamin D deficiency 11/20/2016 Chronic pancreatitis (HCC), followed by GI in [facility] 11/06/2015 Migraine headache 08/12/2015 Depression 11/16/2013 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 Overview (05/20/2015): chronic Shoulder pain 02/21/2010 TIA (transient ischemic attack) 02/21/2010 Lung disease, chronic obstructive 02/26/2009 History of basal cell carcinoma 02/26/2009 Lyme disease 02/04/2009 Resolved Problems Problem Noted Date Diagnosed Date Resolved Date Tobacco use disorder 01/19/2017 018 Tobacco dependence 02/26/2009 9 Encounters Date Type Department Care Team Description 07/26/[address], Unknown Provider 07/23/[address], Unknown Provider 07/09/[address], Unknown Provider 07/06/[address] [phone] Sandy Grove MD Information 06/19/2025 Consult (Initial) [place] [address] Qian Loomis 06/19/2025 Minor Procedure/[place] [address] Qian Loomis. [facility], Unknown Provider 06/14/2025 Minor Procedure/[place] [address] Nuzhat Koch MD [facility], Unknown Provider from Last 3 Months Immunizations Immunization Administration Dates Next Due COVID-19, mRNA (Moderna Pre Fall 2022) Monovalent, 100 mcg/0.5 ml or 50 mcg/0.25 ml dose 09/22/2021 Covid-19, Vector-nr (Kala), 0.5 Ml 11/23/2020 Influenza (H1N1) - 07/09/2009 Influenza (SEASONAL) - 05/21/2011,06/04/2010,10/2008 Influenza,injectable,MDCK, Prsrv Fr,Quad 020 Influenza,injectable,quad,Prsrv Fr 07/06/2019,,08/12/2015 PCV-13 12/09/2015 PCV-20 05/30/2024 PPV23 (Pneumovax) 11/20/2016,06/06/2010 RSV Recombinant Adjuvant, 0.5 ML (Arexvy) 2024 Td (adult), adsorbed 02/28/2008 Td, Adsorbed, Preservative F ree, Adult Use, Lf Unspecified 04/03/2021 Tdap - 03/30/2011 Zoster (Zostavax) 02/26/2009 influenza,seasonal,trivalent ,PF (Fluzone, Fluarix, Flulaval) 07/06/2016 Family History Medical History Relation Name Comments Other Maternal grandfather prostat e ca/skin ca Other Maternal grandmother liver c a Other Maternal uncle lung ca forme r smoker , ca in his 80s Other Mother skin ca Cancer - Breast Sister Relation Name Status Comments Maternal grandfather Maternal grandmother Maternal uncle Mother Sister Other 56 Social History Tobacco Use Types Packs/Day Years Used Date Smoking Tobacco: Former Cigarettes 1 40 0 01/19/1977 - 01/31/2017 Smokeless Tobacco: Never Tobacco Cessation:Counseling Given: Not Answered Comments:started at age 14 Alcohol Use Standard Drinks/Week Comments No 0 (1 standard drink = 0.6 oz pure alcohol) used to be an alcoholic , sober since 1991 PHQ-2 Answer Date Recorded PHQ-2 Score 0 06/24/2021 [facility] - Occupational Stress [...] / family Once a week 06/24/2021 Attend restorationism services Never 2020 Club Membership No 06/24/2021 [...] Start Date Job End Date 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 Not on file Not on mimi e Not on file Last Filed Vital Signs Vital Sign Reading Time Taken Comments Blood Pressure 108/72 05/29/2025 1:09 PM EDT Pulse 77 05/29/2025 1:09 PM EDT Temperature 36.7 C (98.1 F) 04/03/2021 10:33 AM EDT Respiratory Rate 16 03/24/2021 8:08 PM EDT Oxygen Saturation 95% 05/29/2025 1:09 PM EDT Inhaled Oxygen Concentration - - Weight 57.4 kg (126 lb 9.6 oz) 05/29/2025 1:09 P M EDT Height 167.6 cm (5' 6 ) 12/06/2024 1:52 PM EDT Body Mass Index 20.43 12/06/2024 1:52 PM EDT Plan of Treatment Upcoming Encounters Date Type Department Care Team (Late st Contact Info) Description 12/19/2025 1:00 PM EDT Office Visit [facility] [address] [place] [phone] Sandy Grove MD [address] [place] [address] F/u with Dr. Sandy Grove next November - January 06 [facility] Health Maintenance Due Date Last Done Comments Zoster (Shingrix) (1 of 2) 04/23/2009 02/26/2009 COVID-19 Vaccine ( - season) 2025 09/22/2021, 11/23/2020 Influenza (#1) 2025 06/20/2020, 06/14, 08/30/2017, Additional history exists CT Lung Screening 10/10/2025 10/10/2024, , 12/13/2023, Additional history exists Colonoscopy 05/19/2027 05/19/2022, 02/2022, 04/04/2019 DTaP/Tdap/Td (3 - Td or Tdap) 04/03/2031 04/03/2021, 03/30/2011, 02/28/2008 Pap Smear Discontinued 02/26/2009 Hepatitis C Screening Completed 03/29/2017 Bone Density Completed 07/19/2020, 07/15, 08/03/2016, Additional history exists Eye/Retina Exam Discontinued 06/08/2022, 11/12, 02/20/2019, Additional history exists Mammogram/Breast Imaging Discontinued 023, 05/01/2022, 09/19/2020, Additional history exists Pneumococcal 50+ years Completed , 11/20/2016, 12/09/2015, Additional history exists LDL Cholesterol Discontinued 06/20/2024, 04/2024, 2023, Additional history exists Chest Imaging Discontinued 10/10/2024, 09/14, 10/10/2024, Additional history exists RSV Completed 12/14/2024 EKG Discontinued 07/06/2025, 12/13, 10/18/2024, Additional history exists HPV Vaccine (No Doses Required) Completed Hep A Aged Out No longer eligi ble based on patient's age to complete this topic Hep B Aged Out No longer eligi ble based on patient's age to complete this topic Hib Aged Out No longer eligi ble based on patient's age to complete this topic Meningococcal ACWY Aged Out No longer eligible based on patient's age to complete this topic Goals Goal Patient Goal Type Associated Problems Recent Progress Patient-Stated? Author Quit smoking / using tobacco Lifestyle No Ana Vides Procedures * Due to [place] state law, this organization might not be sharing negative HIV tests. Procedure Name Priority Date/Time Associated Diagnosis Comments XR ELBOW 3 VWS RIGHT 07/26/2025 8:30 PM EST XR HUMERUS, RIGHT 07/26/2025 8:3 0 PM EST XR SHOULDER 2 (OR 2+) VWS, RIGHT 07/26/2025 8:[address] HEAD WITHOUT CONTRAST 07/26/2025 7:[address] C-SPINE WITHOUT CONTRAST 07/26/2025 7:12 PM EST XR HIP RIGHT 2+ VW W PELVIS 07/26/2025 7:09 PM EST BASIC METABOLIC PANEL Routine 07/26/2025 5:20 PM EST CBC AUTO DIFFERENTIAL Routine 07/26/2025 5:20 PM EST [facility], PANEL 8 [id number] Routine 06/19/2025 4:28 PM EDT FENTANYL SCREEN W/CONFIRMATION, URINE - QML - [id number] Routine 06/19/2025 4:28 PM EDT METHADONE SCREEN W/CONFIRMATION, URINE Routine 06/19/2025 4:28 PM EDT EKG-TO BE READ & BILLED BY ADULT OR PEDIATRIC CARDIOLOGY Routine 01/03/2025 2:13 AM EDT Coronary artery disease, unspecified vessel or lesion type, unspecified whether angina present, unspecified whether nikolski or transplanted heart CT CHEST PULMONARY EMBOLISM W CONTRAST 10/10/2024 5:03 PM EST LIPID PANEL Routine 06/20/2024 2:42 PM EDT MAMMOGRAM SCREENING TOMOSYNTHESIS, BILATERAL Routine 05/04/2023 2:33 PM EDT Breast cancer screening by mammogram COLONOSCOPY 05/19/2022 10:35 AM EDT DUAL ENERGY DEXA BONE DENSITY ONE/MORE SITES AXIAL SKEL 07/19/2020 HEPATITIS C AB WITH REFLEX TO RNA PCR, SERUM Routine 03/29/2017 10:48 AM EDT Need for hepatitis C screening test SUREPATH PAP & HPV (HIGH RISK) Routine 02/26/2009 12:00 AM EDT from Last 3 Months or Most Recently Relevant to Health Maintenance Results * Due to [place] state law, this organization might not be sharing negative HIV tests. * XR ELBOW 3 VWS RIGHT (07/26/2025 8:30 PM EST) Anatomical Region Laterality Modality Other 07/26/2025 8:30 PM EST Narrative 07/26/2025 8:30 PM EST COMPARISON: None. [...] to obtain the completed interpretation. Workstation ID: [id number] 5' 7 122 Procedure Note [facility], Unknown Provider - 07/26/2025 COMPARISON: None. FINDINGS: Alignment is maintained without acute fracture or dislocation. There areno focal osseous lesions or normal soft tissue calcifications. IMPRESSION: No acute fracture or dislocation. If this radiology report contains a blank impression section, it is anincomplete radiology report. Please contact the interpreting radiologistor applicable radiology division as soon as possible to obtain thecompleted interpretation. Workstation ID: [id number] 5' 7 122 us Unknown Provider [facility] Final Resu lt * XR HUMERUS, RIGHT (07/26/2025 8:30 PM EST) Anatomical Region Laterality Modality Other 07/26/2025 8:30 PM EST Narrative 07/26/2025 8:30 PM EST COMPARISON: None. FINDINGS: The cortical margins of the humerus are intact without acute fracture or dislocation. The shoulder and elbow are intact. IMPRESSION: No acute fracture or dislocation. If this radiology report contains a blank impression section, it is an incomplete radiology report. Please contact the interpreting radiologist or applicable radiology division as soon as possible to obtain the completed interpretation. Workstation ID: [id number] 5' 7 122 Procedure Note [facility], [facility] Provider - 07/26/2025 COMPARISON: None. FINDINGS: The cortical margins of the humerus are intact without acute fracture ordislocation. The shoulder and elbow are intact. IMPRESSION: No acute fracture or dislocation. If this radiology report contains a blank impression section, it is anincomplete radiology report. Please contact the interpreting radiologistor applicable radiology division as soon as possible to obtain thecompleted interpretation. Workstation ID: [id number] 5' 7 122 us Unknown Provider [facility] Final Resu lt * XR SHOULDER 2 (OR 2+) VWS, RIGHT (07/26/2025 8:30 PM EST) Anatomical Region Laterality Modality Other 07/26/2025 8:30 PM EST Narrative 07/26/2025 8:30 PM EST COMPARISON: None. FINDINGS: The right shoulder prosthesis is intact. The acromioclavicular joint is normal. There are no focal bony lesions or abnormal soft tissue calcifications. IMPRESSION: No acute traumatic injury to the right shoulder. If this radiology report contains a blank impression section, it is an incomplete radiology report. Please contact the interpreting radiologist or applicable radiology division as soon as possible to obtain the completed interpretation. Workstation ID: [id number] ' 7 122 Procedure Note [facility], Unknown Provider - 07/26/2025 COMPARISON: None. FINDINGS: The right [...] possible to obtain thecompleted interpretation. Workstation ID: [id number] 5' 7 122 us Unknown Provider [facility] Final Resu lt * CT C-SPINE WITHOUT CONTRAST (07/26/2025 7:12 PM EST) Anatomical Region Laterality Modality Other 07/26/2025 7:12 PM EST Narrative 07/26/2025 7:12 PM EST EXAMINATION: CT [...] show biapical scarring and centrilobular emphysematous changes. IMPRESSION: 1. No acute intracranial abnormality. [...] to obtain the completed interpretation. Workstation ID: [id number] Up-to-date CT equipment and radiation dose reduction techniques were employed. CTDIvol: 33.2 - 49.6 mGy. DLP: 1656 mGy-cm. 5' 7 122 Procedure Note [facility], Unknown Provider - 07/26/2025 EXAMINATION: CT of head and [...] possible to obtain thecompleted interpretation. Workstation ID: [id number] Up-to-date CT equipment and radiation dose reduction techniques wereemployed. CTDIvol: 33.2 - 49.6 mGy. DLP: 1656 mGy-cm. 5' 7 122 us Unknown Provider [facility] Final Resu lt * CT HEAD WITHOUT CONTRAST (07/26/2025 7:12 PM EST) Anatomical Region Laterality Modality Other 07/26/2025 7:12 PM EST Narrative 07/26/2025 7:12 PM EST EXAMINATION: CT [...] show biapical scarring and centrilobular emphysematous changes. IMPRESSION: 1. No acute intracranial abnormality. [...] to obtain the completed interpretation. Workstation ID: [id number] Up-to-date CT equipment and radiation dose reduction techniques were employed. CTDIvol: 33.2 - 49.6 mGy. DLP: 1656 mGy-cm. 5' 7 122 Procedure Note [facility], Unknown Provider - 07/26/2025 EXAMINATION: CT of head and [...] possible to obtain thecompleted interpretation. Workstation ID: [id number] Up-to-date CT equipment and radiation dose reduction techniques wereemployed. CTDIvol: 33.2 - 49.6 mGy. DLP: 1656 mGy-cm. 5' 7 122 us Unknown Provider [facility] Final Resu lt * XR HIP RIGHT 2+ VW W PELVIS (07/26/2025 7:09 PM EST) Anatomical Region Laterality Modality Other 07/26/2025 7:09 PM EST Narrative 07/26/2025 7:09 PM EST COMPARISON: None FINDINGS: No acute fracture or dislocation of the right hip. The femoral head is seated in the acetabulum. The joint space is maintained. The bony pelvis is intact. The pubic symphysis and sacroiliac joints are congruent. A bone island is noted in the right ischium. IMPRESSION: No acute fracture or dislocation. If this radiology report contains a blank impression section, it is an incomplete radiology report. Please contact the interpreting radiologist or applicable radiology division as soon as possible to obtain the completed interpretation. Workstation ID: [id number] 5' 7 122 Procedure Note [facility], Unknown Provider - 07/26/2025 COMPARISON: None FINDINGS: No acute [...] possible to obtain thecompleted interpretation. Workstation ID: [id number] 5' 7 122 us Unknown Provider [facility] Final Resu lt * (ABNORMAL) CBC AUTO DIFFERENTIAL (07/26/2025 5:20 PM EST) WBC 4.6 3.8 - 10.8 10*3/uL [facility] RBC 3.79(L) 3.80 - 5.10 10*6/uL [facility] Hemoglobin 10.8(L) 11.7 - 15.5 g/dL [facility] Hematocrit 33.8(L) 35.0 - 45.0 % [facility] MCV 89.2 80.0 - 100.0 fL [facility] MCH 28.5 27.0 - 33.0 pg [facility] MCHC 32.0 32.0 - 36.0 g/dL [facility] RDW 14.6 11.0 - 15.0 % [facility] PLT 217 140 - 400 10*3/uL [facility] Platelet mean volume 8.8 7.5 - 12.5 fL [facility] Neutrophils % 70.9 % [facility] Granulocytes.kassie ture/100 leukocytes 0.4 0.0 - 0.9 % [facility] Lymphocytes % 17.7 % [facility] Monocytes % 9.7 % [facility] Eosinophils % 0.9 % [facility] Basophils % 0.4 % [facility] Neutrophils # 3.28 1.50 - 7.80 10*3/uL [facility] Immature Granulocytes # <0.03 <=0.03 10*3/uL [facility] Lymphocytes # 0.80(L) 0.85 - 3.90 10*3/uL [facility] Monocytes # 0.50 0.20 - 0.95 10*3/uL [facility] Eosinophils # <0.03 0.02 - 0.50 10*3/uL [facility] Basophils # <0.03 0.00 - 0.20 10*3/uL [facility] Erythrocytes.nucl eated/100 leukocytes 0.0 /100 WBCs [facility] Erythrocytes.nucl eated <0.01 <0.01 10*3/uL [facility] 07/26/2025 5:20 PM EST us Unknown Provider [facility] Final Resu lt [facility] [employer] [address] [place] [id number] * (ABNORMAL) BASIC METABOLIC PANEL (07/26/2025 5:20 PM EST) Sodium 135 135 - 145 mmol/L [facility] Potassium 4.2 3.5 - 5.3 mmol/L [facility] Chloride 102 97 - 110 mmol/L [facility] Carbon dioxide 26 22 - 32 mmol/L [facility] Urea Nitrogen Blood (BUN) 24(H) 7 - 23 mg/dL [facility] Creatinine 0.56 0.50 - 1.20 mg/dL [facility] Glucose 95 65 - 99 mg/dL [facility] Calcium 8.2(L) 8.6 - 10.5 mg/dL [facility] Anion gap 7 5 - 15 [facility] EGFR >90 >=60 mL/min/1.7 3m2 [facility] Comment: The estimated glomerular filtration rate (eGFR) is calculated using a new formula developed by the [employer] task force to eliminate race-based correction factors. The new formula uses serum/plasma creatinine, age, and gender to determine eGFR. A value below 60mls/min might indicate kidney disease and will be flagged. For additional information, see Vann et al, Am J Kidney Dis. 2021;79(2):268-288, A Unifying Approach for GFR estimation: Recommendations of the NKF-ASN Task Force on Reassessing the Inclusion of Race in Diagnosing Kidney Disease . 07/26/2025 5:20 PM EST us Unknown Provider [facility] LABORATORY Final Resu lt [facility] [address] [facility] [address] * (ABNORMAL) [facility], PANEL 8 [id number] (06/19/2025 4:28 PM EDT) Alcohol, Ethyl, (Ethanol) Qualitative, Urine NEGATIVE <500 ng/mL [facility] Amphetamines (Screen) NEGATIVE <500 ng/mL [facility] Benzodiazepine And Metabolit es, Urine POSITIVE(A ) <100 ng/mL [facility] Alpha hydroxyalprazolam (Urine) NEGATIVE <25 ng/mL [facility] 1-Hydroxymidazolam (Urine) NEGATIVE <50 ng/mL [facility] Alpha Hydroxytriazolam (Urine) NEGATIVE < 50 ng/mL [facility] 7-Aminoclonazepam (Urine) NEGATIVE <25 ng/mL [facility] Hydroxyethylflurazepam (Urine) NEGATIVE < 50 ng/mL [facility] Lorazepam (Urine) 449(H) <50 ng/mL [facility] Nordiazepam (Urine) NEGATIVE <50 ng/mL [facility] Oxazepam (Urine) NEGATIVE <50 ng/mL [facility] Temazepam (Urine) NEGATIVE <50 ng/mL [facility] Drug screen comment (Urine) See Comments [facility] Comment: See Benzodiazepines Notes, LDT Notes Buprenorphine (Suboxone) (Urine) POSITIVE(A ) <5 ng/mL [facility] Buprenorphine (Suboxone) (Urine) 795(H) <2 ng/mL [facility] Norbuprenorphine (Suboxone Metabolites) (Urine) 1638(H) <2 ng/mL [facility] NALOXONE >2000(H) <2 ng/mL [facility] Drug screen comment (Urine) See Comments [facility] Comment: See Buprenorphine Notes, LDT Notes Benzoylecgonine (Cocaine Metabolite) (Urine) NEGATIVE <150 ng/mL [facility] 6-Monoacetylmorphine (Heroin Metabolite) (Urine) NEGATIVE <10 ng/mL [facility] Tetrahydrocannabinol (Urine) NEGATIVE <20 ng/mL [facility] Methylenedioxymethamphetamin e (Urine) NEGATIVE <500 ng/mL [facility] Opiates (Urine) NEGATIVE <100 ng/mL [facility] Oxycodone (Urine) NEGATIVE <100 ng/mL [facility] Creatinine (Urine) 193.5 > or = 20.0 mg/dL [facility] pH (Urine) 5.6 4.5 - 9.0 [facility] Oxidants (Urine) NEGATIVE <200 mcg/mL [facility] 06/19/2025 4:28 PM EDT Narrative [facility] - 06/23/2025 10:06 AM EDT [facility] Received Date: us Qian Loomis LABORATORY Final Result [facility] [address] [address] [place] [address] * FENTANYL SCREEN W/CONFIRMATION, URINE - QML - [id number] (06/19/2025 4:28 PM EDT) Fentanyl Screen (Urine) NEGATIVE <0.5 ng/mL [facility] 06/19/2025 4:28 PM EDT Narrative [facility] - 06/23/2025 10:06 AM EDT [facility] Received Date: Qian Loomis LABORATORY Final Result [facility] [address] [address] [place] [address] * METHADONE SCREEN W/CONFIRMATION, URINE (06/19/2025 4:28 PM EDT) EDDP ( Methadone Metabolite) NEGATIVE <100 ng/mL [facility] Comment: See Note 1 Note 1 This drug testing is for medical treatment only. Analysis was performed as non-forensic testing and these results should be used only by healthcare providers to render diagnosis or treatment, or to monitor progress of medical conditions. For assistance with interpreting these drug results, please contact a [facility] [employer] Toxicology Specialist: [phone] ( ), M-F, 8am-6pm EST. 06/19/2025 4:28 PM EDT Narrative [facility] - 06/21/2025 11:39 AM EDT [facility] Received Date:[id number] Qian Loomis LABORATORY Final Result [facility] [address] [place] [address] * EKG - READ & BILLED BY CARDIOLOGY (01/03/2025 2:13 AM EDT) VENTRICULAR RATE 77 BPM MUS E EKG SYSTEM ATRIAL RATE 67 BPM MUSE EKG SYSTEM P-R INTERVAL 200 ms MUSE EK G SYSTEM QRS DURATION 88 ms MUSE EK G SYSTEM QT 390 ms MUSE EKG SYSTEM QTC 441 ms MUSE EKG SYSTEM P AXIS 74 degrees MUSE EKG SYSTEM R AXIS 25 degrees MUSE EKG SYSTEM T AXIS 23 degrees MUSE EKG SYSTEM EKG INTERPRETATION Sinus rhythm with occasional Premature ventricular complexes and Premature atrial complexes Nonspecific T wave abnormality Abnormal ECG Confirmed by SANDY GROVE ([id number]), acquisitions editor NATHALIE CHENG ([id number]) on 01/06/2025 9:09:28 AM MUSE EKG SYSTEM 01/03/2025 2:13 AM EDT 01/06/2025 9:09 AM EDT Sandy Grove MD CARDIOVASCULAR-WITH INBSKT RTG Final Result MUSE EKG SYSTEM * CT CHEST PULMONARY EMBOLISM W CONTRAST (10/10/2024 5:03 PM EST) Anatomical Region Laterality Modality Other 10/10/2024 5:03 PM EST Narrative 10/10/2024 5:03 PM EST COMPARISON: Prior [...] to obtain the completed interpretation. Workstation ID: [id number] Up-to-date CT equipment and radiation dose reduction techniques were employed. CTDIvol: 9.2 - 10.7 mGy. DLP: 296 mGy-cm. 5' 8 140 Procedure Note [facility], Unknown Provider - 10/10/2024 COMPARISON: Prior x-rays from 10/10/2024 [...] thoracic aorta is otherwise normal in caliber. Patulousesophagus. Lymph Nodes: There is no hilar, mediastinal, or axillary lymphadenopathy. Bones and Soft Tissues: Diffuse osteopenia. Multilevel mild degenerativechanges in the visualized spine. No acute osseous abnormality. Upper Abdomen: Unremarkable. IMPRESSION: 1. No evidence of pulmonary embolism 2. Groundglass opacities in bilateral upper lungs could suggest atypicalinfection or pulmonary edema. 3. Moderate emphysema I, Natalie Rust, have reviewed the examination and concur with thefindings as reported or so edited. Trainee: Dionicio Guevara If this radiology report contains a blank impression section, it is anincomplete radiology report. Please contact the interpreting radiologistor applicable radiology division as soon as possible to obtain thecompleted interpretation. Workstation ID: [id number] Up-to-date CT equipment and radiation dose reduction techniques wereemployed. CTDIvol: 9.2 - 10.7 mGy. DLP: 296 mGy-cm. 5' 8 140 us Unknown Provider [facility] Final Resu lt * (ABNORMAL) LIPID PANEL (06/20/2024 2:42 PM EDT) Cholesterol 136 <=199 mg/dL [facility] Triglyceride 54 <=149 mg/dL [facility] HDL Cholesterol 65(H) 40 - 59 mg/dL [facility] Cholesterol Non-HDL 71 mg/dL [facility] Cholesterol.in LDL 60 <100 mg/dL [facility] VLDL Cholesterol 10.8 mg/dL [facility] CHOL/HDL Ratio 2.1 <5.0 [facility] 06/20/2024 2:42 PM EDT Narrative [facility] - 06/20/2024 4:35 PM EDT Adult Treatment Panel III Guidelines of NCEP 2000 ? ? Category: ? Total Cholesterol (mg/dL) ? ? ?Desirable ?<200 ?Borderline High ? 200-239 ? ? ?High ?>=240 ? ? Category: ? LDL Cholesterol (mg/dL) ? ? ?Optimal ?<100 ? ? ?Near Optimal/Above Optimal ?100-129 ? ? ?Borderline High ? 130-159 ? ? ?High ?160-189 ? ? ?Very High ? >=190 ? ? Category: ? HDL Cholesterol (mg/dL) ? ? ?Low ?<40 ? ? ?High ?>=60 NCEP's Expert Panel on Blood Cholesterol in Children and Adolescents ? ? Category: ? Total Cholesterol (mg/dL) ? ? ?Desirable ?<170 ? ? ?Borderline High ? 170-199 ? ? ?High ?>=200 ? ? Category: ? LDL Cholesterol (mg/dL) ? ? ?Desirable ?<110 ? ? ?Borderline High ? 110-129 ? ? ?High ?>=130 us Qian HendersonDion Vladislav LABORATORY Final Result [facility] [address] [place] [address] * MAMMOGRAM SCREENING TOMOSYNTHESIS, BILATERAL FC (05/04/2023 2:33 PM EDT) Anatomical Region Laterality Modality BREAST Bilateral Mammography Impressions 05/12/2023 12:40 PM EDT : No mammographic evidence of malignancy BI-RADS: 1 - Negative (overall) RECOMMENDATION: - Routine Screening Mammogram. A result letter has been sent to the patient. Narrative 05/12/2023 12:40 PM EDT EXAMINATION: SCREENING MAMMOGRAM HISTORY: Screening. Her sister with breast cancer, age not stipulated. TECHNIQUE: Standard Bilateral 2D digital mammography and tomosynthesis were obtained and interpreted with CAD COMPARISON: Comparison is made to prior exams dated back to 09/19/2020 BREAST COMPOSITION: The breasts have scattered areas of fibroglandular density. FINDINGS: There are no suspicious masses, calcifications or areas of unexplained architectural distortion. There have been no suspicious interval changes. us Vanessa Culver MD IMG MAMMO ORDERABLES Final Res ult * COLONOSCOPY (05/19/2022 10:35 AM EDT) Narrative Procedure Note Shawn Villa MD - 05/19/2022 11:09 AM EDT Procedures signed by Shawn Villa MD at 05/19/2022 11:09 AM Author: Shawn Villa MD Service: -- Author Type: Physician Filed: 05/19/2022 11:09 AM Date of Service: 05/19/2022 10:35 AM Status:Signed Driver'S License Reviewing Officer: Shawn Villa MD (Physician) Procedure Orders 1. COLONOSCOPY [[id number]] ordered by Shawn Villa MD at 0[facility] Gastroenterology Patient Name: Mayra Ziegler Procedure Date: 05/19/2022 10:35 AM Date of : 1950 Admit Type: Outpatient Age: 71 Room: [place] [address] Gender: Female Note Status: Finalized Attending MD: [...] and oxygen saturations were monitored continuously. The [facility]- [id number] # [id number] colonoscope was introduced through the anus andadvanced [...] - [facility] The signs and symptoms of potential delayedcomplications [...] 05/19/2022 10:35 AM us Shawn Villa MD PROCEDURES Final Resul t * DUAL ENERGY DEXA BONE DENSITY ONE/MORE SITES AXIAL SKEL (07/19/2020) 07/19/2020 Narrative 07/19/2020 Ordered by an unspecified provider. us Unknown Provider GENERAL IMAGING- OTHER Final Re sult * HEPATITIS C AB WITH REFLEX TO RNA PCR, SERUM (03/29/2017 10:48 AM EDT) Hepatitis C virus Ab NON-REACTI VE NON-REACT [facility] Hepatitis C virus Ab Signal/Cutoff 0.06 <1.00 [facility] 03/29/2017 10:4 8 AM EDT 03/29/2017 4:28 PM EDT Narrative Resulting Agency Comment [id number] us Vanessa Culver MD LABORATORY Final Result [facility] [address] [place] [address] * SUREPATH PAP & HPV (HIGH RISK) (02/26/2009 12:00 AM EDT) Thin Prep PAP With HPV SEE TEXT 03/04/2009 10:15 AM EDT [facility] Comment: SUREPATH WITH HPV SOURCE: CERVIX CLINICAL HISTORY: LMP: NOT APPLICABLE POST MENOPAUSAL STATEMENT OF ADEQUACY: SATISFACTORY, ENDOCERVICAL/TRANSFORMATION ZONE COMPONENT IS PRESENT RESULT: NEGATIVE FOR INTRAEPITHELIAL LESION OR MALIGNANCY HPV DNA TEST: NOT DETECTED HIGH/INTERMEDIATE RISK HPV DNA SUBTYPES (16,18,31,33,35,39,45, 51,52,56,58,59,68) ARE NOT DETECTED. THE ANALYTICAL PERFORMANCE CHARACTERISTICS OF THIS ASSAY, WHEN USED TO TEST SUREPATH OR VAGINAL SPECIMENS, HAVE BEEN DETERMINED BY [facility]. COMMENTS: THIS CASE WAS SUCCESSFULLY PROCESSED BY THE [employer] SL[employer]ISH[employer] HAND. HPV PERFORMED AT [facility], [address] [place] [address], SANDEEP PENA M.D., DIRECTOR RESULT DATE: 03/04/2009 TECHNOLOGIST: BSQ GYNECOLOGICAL CYTOLOGY IS A SCREENING PROCEDURE SUBJECT TO BOTH FALSE NEGATIVE AND FALSE POSITIVE RESULTS. IT IS MOST RELIABLE WHEN A SATISFACTORY SAMPLE IS OBTAINED ON A REGULAR REPETITIVE BASIS. RESULTS MUST BE INTERPRETED IN THE CONTEXT OF HISTORIC AND CURRENT CLINICAL INFORMATION. [facility] REPORT COMMENTS: THIS CASE WAS SUCCESSFULLY PROCESSED BY THE [employer]. HPV PERFORMED AT [facility], [address] [place] [address], SANDEEP PENA M.D., DIRECTOR 02/26/2009 02/26/2009 Narrative [facility] - 03/04/2009 12:00 AM EDT Is patient high risk for cervical/vaginal cancer? (y/n) [facility] ONLY->NO NOTE: ALL info above required by CLIA. If not supplied, you will be asked to resubmit the order. 5 - High Risk Category none 4-Other history: none. -as noted. 3-Menstrual History: No LMP date recorded. Reason: Postmenopausal.; if LMP noted, hit Enter now; otherwise select any other appropriate line(s): 2-Specimen source: cervix. 1-Anticipated interval to next Pap: 1 yr us Vanessa Culver MD PATHOLOGY Final Result [facility] from Last 3 Months or Most Recently Relevant to Health Maintenance Insurance MEDICAID MEDICARE PART B MEDICAID MEDICARE PART B Care Teams [place] Singer Relationship Specialty Start Date End Date Vanessa Culver MD PCP - General 08/31/14
--- OUTSIDE RECORDS SUMMARY | 2025-09-11 08:58 | XMS_ITS | Encounter Summary ---
Author Organization [facility] Address [address] [place] [address] Care Team Providers Care Thoroughbred Horse Farm Manager Name Role Phone Vanessa Culver MD Primary Care Provider [phone] Encounter Details Date Type Department Care Team (Late st Contact Info) Description 11/12/2021 Orders Only [facility] Gastroenterology [address] [place] [address] Qian Loomis, DO [address] [place] [address] Social History Tobacco Use Types Packs/Day Years [...] documented as of this encounter Care Teams Thoroughbred Horse Farm Manager Relationship Specialty Start Date End Date Vanessa Culver MD [address] [place] [address] PCP - General Internal Medicine 05/24/25 documented as of this encounter
--- OUTSIDE RECORDS SUMMARY | 2025-09-11 08:58 | XMS_ITS | Encounter Summary ---
Author Organization [facility] Address [address] [place] [address] Care Team Providers Care Surgical Sales Representative Name Role Phone Vanessa Culver MD Primary Care Provider [phone] Encounter Details Date Type Department Care Team (Late st Contact Info) Description 06/22/2023 Orders Only [facility] Gastroenterology [address] [place] [address] Qian Loomis, DO [address] [place] [address] Social History Tobacco Use Types Packs/Day Years [...] documented as of this encounter Care Teams Surgical Sales Representative Relationship Specialty Start Date End Date Vanessa Culver MD [address] [place] [address] PCP - General Internal Medicine 05/24/25 documented as of this encounter
--- OUTSIDE RECORDS SUMMARY | 2025-09-11 08:58 | XMS_ITS | Encounter Summary ---
Author Organization [facility] Address [address] [place] [address] Care Team Providers Care Email Marketing Executive Name Role Phone Vanessa Culver MD Primary Care Provider Encounter Details Date Type Department Care Team (Late st Contact Info) Description 09/09/2022 Orders Only [facility] Gastroenterology [address] [place] [address] Qian Loomis, DO [address] [place] [address] Social History Tobacco Use Types Packs/Day Years [...] documented as of this encounter Care Teams Email Marketing Executive Relationship Specialty Start Date End Date Vanessa Culver MD [address] [place] [address] PCP - General Internal Medicine 05/24/25 documented as of this encounter
--- OUTSIDE RECORDS SUMMARY | 2025-09-11 08:58 | XMS_ITS | Encounter Summary ---
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 Lalo Grove next November - January 06 CHF documented as of this encounter Goals Goal Patient Goal Type Associated Problems Recent Progress Patient-Stated? Author Quit smoking / using tobacco Lifestyle No Ana Vides documented as of this encounter Procedures * Due to [facility] law, this organization might not be sharing negative HIV tests. Procedure Name Priority Date/Time Associated Diagnosis Comments INFLUENZA A/B, RNA, RT-PCR ([facility] ONLY) Routine 09/18/2019 9:53 AM EST Cough documented in this encounter Results * Due to [facility] law, this organization might not be sharing negative HIV tests. * INFLUENZA A/B, RNA, RT-PCR ([facility] ONLY) (09/18/2019 9:53 AM EST) Influenza A Influenza A Not Detected Influenza A Not Detected [facility] Influenza B Influenza B Not Detected Influenza B Not Detected [facility] 09/18/2019 9:5 3 AM EST 09/18/2019 9:53 AM EST Narrative [facility] - 09/18/2019 10:18 AM EST Patient's primary care provider is: N/A Testing performed at: [facility], [address] [place] [address], [address], Project Associate: Dean Perez MD [facility] LEARNING AND DEVELOPMENT INTERN LAB SAME DAY RESULT Final Result Performing Organization Address [facility] Co de Phone Number [address] [address] DIRECTOR Dean Perez MD documented in this encounter Visit Diagnoses Diagnosis Cough documented in this encounter Care Teams Lockstitch Pocket Setter Relationship Specialty Start Date End Date Vanessa Culver MD PCP - General 08/31/14 documented as of this encounter
--- OUTSIDE RECORDS SUMMARY | 2025-09-11 08:58 | XMS_ITS | Encounter Summary ---
Author Organization [facility] Address [address] [place] [address] Care Team Providers Care New Car Inspector Name Role Phone Vanessa Culver MD Primary Care Provider [phone] Encounter Details Date Type Department Care Team (Late st Contact Info) Description 04/01/2023 Orders Only [facility] Gastroenterology [address] [place] [address] Qian Loomis, DO [address] [place] [address] Social History Tobacco Use Types Packs/Day Years [...] documented as of this encounter Care Teams New Car Inspector Relationship Specialty Start Date End Date Vanessa Culver MD [address] [place] [address] PCP - General Internal Medicine 05/24/25 documented as of this encounter
--- OUTSIDE RECORDS SUMMARY | 2025-09-11 08:58 | XMS_ITS | Encounter Summary ---
Author Organization [facility] Address [address] [place] [address] Care Team Providers Care Health Information Clerk Name Role Phone Vanessa Culver MD Primary Care Provider [phone] Encounter Details Date Type Department Care Team (Late st Contact Info) Description 08/13/2022 Orders Only [facility] Gastroenterology [address] [place] [address] Qian Loomis, DO [address] [place] [address] Social History Tobacco Use Types Packs/Day Years [...] documented as of this encounter Care Teams Health Information Clerk Relationship Specialty Start Date End Date Vanessa Culver MD [address] [place] [address] PCP - General Internal Medicine 05/24/25 documented as of this encounter
--- OUTSIDE RECORDS SUMMARY | 2025-09-11 08:58 | XMS_ITS | Encounter Summary ---
Author Organization [facility] Address [address] [place] [address] Care Team Providers Care Fiberglass Finisher Name Role Phone Vanessa Culver MD Primary Care Provider [phone] Encounter Details Date Type Department Care Team (Late st Contact Info) Description 07/23/2023 Orders Only [facility] Gastroenterology [address] [place] [address] Qian Loomis, DO [address] [place] [address] Social History Tobacco Use Types Packs/Day Years [...] documented as of this encounter Care Teams Fiberglass Finisher Relationship Specialty Start Date End Date Vanessa Culver MD [address] [place] [address] PCP - General Internal Medicine 05/24/25 documented as of this encounter
--- OUTSIDE RECORDS SUMMARY | 2025-09-11 08:58 | XMS_ITS | Encounter Summary ---
Author Organization [facility] Address [address] [place] [address] Care Team Providers Care Talk Show Host Name Role Phone Vanessa Culver MD Primary Care Provider [phone] Encounter Details Date Type Department Care Team (Late st Contact Info) Description 08/19/2022 Orders Only [facility] Gastroenterology [address] [place] [address] Qian Loomis, DO [address] [place] [address] Social History Tobacco Use Types Packs/Day Years [...] documented as of this encounter Care Teams Talk Show Host Relationship Specialty Start Date End Date Vanessa Culver MD [address] [place] [address] PCP - General Internal Medicine 05/24/25 documented as of this encounter
--- OUTSIDE RECORDS SUMMARY | 2025-09-11 08:58 | XMS_ITS | Encounter Summary ---
Author Organization [facility] Address [address] [place] [address] Care Team Providers Care Tool Builder Name Role Phone Vanessa Culver MD Primary Care Provider [phone] Encounter Details Date Type Department Care Team (Late st Contact Info) Description 07/27/2023 Orders Only [facility] Gastroenterology [address] [place] [address] Qian Loomis, DO [address] [place] [address] Social History Tobacco Use Types Packs/Day Years [...] documented as of this encounter Care Teams Tool Builder Relationship Specialty Start Date End Date Vanessa Culver MD [address] [place] [address] PCP - General Internal Medicine 05/24/25 documented as of this encounter
--- OUTSIDE RECORDS SUMMARY | 2025-09-11 08:58 | XMS_ITS | Encounter Summary ---
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 Lalo Grove next November - January 06 CHF documented as of this encounter Goals Goal Patient Goal Type Associated Problems Recent Progress Patient-Stated? Author Quit smoking / using tobacco Lifestyle No Ana Vides documented as of this encounter Visit Diagnoses Diagnosis Abnormal EKG Nonspecific abnormal electrocardiogram (ECG) (EKG) documented in this encounter Care Teams Plasterer Helper Relationship Specialty Start Date End Date Vanessa Culver MD PCP - General 08/31/14 documented as of this encounter
--- OUTSIDE RECORDS SUMMARY | 2025-09-11 08:58 | XMS_ITS | Patient Health Record ---
Author Organization [facility] Address [address] [facility] [address] [place] [address] Care Team Providers Care Laboratory Equipment Installer Name Role Phone Tang Ceja Unavailable [phone] Shivani Burger Unavailable [phone] Reason For Referral No Information Medications Medication SIG (Take, Route, Frequency, Duration) Notes Start Date End Date Status oxyCODONE HCl 5 MG Tablet Give 5 mg by mouth every 4 hours as needed for PAIN Partial Fill upon Patient Request 08/12/2025 Active LORazepam 0.5 MG Tablet Give 1 tablet by mouth three times a day for anxiety,chronic HOLD IF LETHARGY; Duration: 15 days 08/12/2025 Active oxyCODONE HCl 5 MG Tablet Give 5 mg by mouth every 4 hours as needed for moderate pain AND Give 10 mg by mouth every 4 hours as needed for severe pain Partial Fill upon Patient Request 08/17/2025 Active ALPRAZolam 0.5 MG Tablet Give 1 tablet by mouth every 24 hours as needed for anxiety for 14 Days 08/12/2025 Active Suboxone 4-1 MG Film 1 film under the tongue and allow to dissolve Sublingual Once a day in the evening; Duration: 30 days 08/12/2025 09/11/2025 Active Social History Section Notes: No active tobacco use. Records reviewed. . No active tobacco use. Records reviewed. . No active tobacco use. Records reviewed. . No active tobacco use. Records reviewed. . 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 I will order send to ER for evaluation Problem Pain in limb (59904155) Left upper arm pain (M79.622) Active confirmed Problem Acute exacerbation of chronic obstructive airways disease (659475279) COPD with exacerbation (J44.1) Active confirmed Problem Edema of right upper extremity (657713104) Edema of right upper extremity (R60.0) Active confirmed Problem Polypharmacy (190849242) Polypharmacy (Z79.899) Active confirmed Problem At risk for malnutrition (709574686) At risk for malnutrition (Z91.89) Active confirmed Problem Pain (89816529) Encounter for pain management (R52) Active confirmed Encounters Encounter Location Date Provider Diagnosis [facility] [address] [place] [phone] 08/30/2025 Shivani Burger [facility] [address] [place] [phone] 08/12/2025 Tang Ceja Acute pain of right shoulder M25.511 ; Encounter for pain management R52 ; COPD with exacerbation J44.1 ; Depression with anxiety F41.8 ; Acquired hypothyroidism E03.9 ; Dyslipidemia E78.5 ; Edema of right upper extremity R60.0 ; Physical deconditioning R53.81 ; Chronic GERD K21.9 ; Polypharmacy Z79.899 ; At risk for malnutrition Z91.89 and Encounter for therapeutic drug level monitoring Z51.81 [facility] [address] [place] [phone] 08/15/2025 Clelie [facility] Acute pain of right shoulder M25.511 ; Encounter for pain management R52 ; COPD with exacerbation J44.1 ; Depression with anxiety F41.8 ; Acquired hypothyroidism E03.9 ; Dyslipidemia E78.5 ; Edema of right upper extremity R60.0 ; Physical deconditioning R53.81 ; Chronic GERD K21.9 ; Polypharmacy Z79.899 ; At risk for malnutrition Z91.89 and Encounter for therapeutic drug level monitoring Z51.81 [facility] [address] [place] [phone] 08/16/2025 [place]lie [facility] Unwitnessed fall R29 .6 ; Acute pain of left shoulder M25.512 and Acute pain of right shoulder M25.511 [facility] [address] [place] [phone] 08/17/2025 Tang Ceja Acute pain of right shoulder M25.511 ; Left upper arm pain M79.622 ; Encounter for therapeutic drug level monitoring Z51.81 ; Encounter for pain management R52 ; Depression with anxiety F41.8 ; COPD with exacerbation J44.1 ; Edema of right upper extremity R60.0 ; Physical deconditioning R53.81 ; Polypharmacy Z79.899 and At risk for malnutrition Z91.89 [facility] [address] [place] [phone] 08/12/2025 Tang Ceja [facility] [address] [place] [phone] 08/17/2025 Tang Ceja Assessments Encounter Date Diagnosis (ICD Code) Assessment Notes Treatment Notes Treatment Clinical Notes Section Notes 08/12/2025 Acute pain of right shoulder (ICD-10 - M25.511) 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 No ROM I will order send to ER for evaluation 08/16/2025 Unwitnessed fall (ICD-10 - R29.6) pt report had a fall in bathroom now having severe left shoulder pain. 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 08/01/25 08/12/2025 COPD with exacerbation (ICD-10 - J44.1) 08/12/2025 Depression with anxiety (ICD-10 - F41.8) 08/15/2025 COPD with exacerbation (ICD-10 - J44.1) 08/17/2025 Encounter for pain management (ICD-10 - R52) 08/15/2025 Depression with anxiety (ICD-10 - F41.8) 08/17/2025 Depression with anxiety (ICD-10 - F41.8) 08/12/2025 Acquired hypothyroidism (ICD-10 - E03.9) 08/12/2025 Dyslipidemia (ICD-10 - E78.5) 08/15/2025 Acquired hypothyroidism (ICD-10 - E03.9) 08/17/2025 COPD with exacerbation (ICD-10 - J44.1) 08/17/2025 Edema of right upper extremity (ICD-10 - R60.0) 08/12/2025 Edema of right upper extremity (ICD-10 - R60.0) 08/15/2025 Dyslipidemia (ICD-10 - E78.5) 08/12/2025 Physical deconditioning (ICD-10 - R53.81) 08/17/2025 Physical deconditioning (ICD-10 - R53.81) 08/15/2025 Edema of right upper extremity (ICD-10 - R60.0) 08/15/2025 Physical deconditioning (ICD-10 - R53.81) 08/17/2025 Polypharmacy (ICD-10 - Z79.899) 08/12/2025 Chronic GERD (ICD-10 - K21.9) 08/12/2025 Polypharmacy (ICD-10 - Z79.899) 08/15/2025 Chronic GERD (ICD-10 - K21.9) 08/17/2025 At risk for malnutrition (ICD-10 - Z91.89) 08/15/2025 Polypharmacy (ICD-10 - Z79.899) 08/12/2025 At risk for malnutrition (ICD-10 - Z91.89) 08/12/2025 Encounter for therapeutic drug level monitoring (ICD-10 - Z51.81) 08/15/2025 At risk for malnutrition (ICD-10 - Z91.89) 08/15/2025 Encounter for therapeutic drug level monitoring (ICD-10 - Z51.81) 08/12/2025 Other . Follow progress with PT OT as per SNF protocol. Follow dock manager recommendations and monitor nutritional status. Monitor for any pharmacologic adverse effects. Monitor the need for labs periodically and review results as available. Continue to work with SW for safe DC planning options. Continue fall precautions, aspiration precautions as applicable. Monitor risk of orthostasis and bleeding, fluid and electrolyte imbalances, etc. Continue to monitor for any acute change in symptoms, vitals, behavior, mental status etc. . Extensive bedside discussion with patient and family regarding multiple meds and symptom management and hospital course and rehab plan of care High risk of falls maintain fall precaution High risk of aspiration maintain aspiration precaution follow speech and dietary recs Entresto adjusted the patient's prior regimen along with metoprolol Bactrim completed currently no acute adverse effects Wound care requested Having shortness of breath and some wheezing requested chest x-ray and ordered prednisone 40 mg once a day for 3 days and nebulizer 3 times daily scheduled for short course plus as needed Orthopedics follow-up next week Adjusted lorazepam 0.5 mg 3 times daily scheduled and then as needed alprazolam Having exacerbation of COPD Staff requested refill for Suboxone, alprazolam, lorazepam and oxycodone which is all sent to the pharmacy and all med dosage regimen reviewed discussed with patient and family staff Risk of polypharmacy adverse effects reviewed at great length with the patient and the daughter present at bedside including but not limited to dizziness, fall, aspiration, bowel bladder dysfunction etc. patient aware and acknowledges the risks Supportive bowel meds in place and additionally on vitamin C, Tums, potassium supplements, Creon, eyedrops, omeprazole, pancrelipase Pain management with Tylenol, on low-dose Suboxone for adverse effects and oxycodone and may need further titration Hypothyroid managed with levothyroxine Anxiety depression psych med management with paroxetine, alprazolam, lorazepam titrated Respiratory management additionally with budesonide/formot tong inhaler, Spiriva inhaler Dyslipidemia management with Lipitor Edema management with short course of furosemide until oral intake is improved Right upper extremity edema to be monitored in orthopedics follow-up Monitor bleeding symptom on baby aspirin for VTE prophylaxis and continue PPI Okay to use home supply of Entresto Okay to cut metoprolol in half for appropriate use Notified clinical social work therapist on upcoming appointments and transportation etc. Incentive spirometry as tolerated Monitor weights Monitor for behavior and psych consult patient already has a therapist in the community 08/15/2025 Other . Follow progress with PT OT as per SNF protocol. Follow dock manager recommendations and monitor nutritional status. Monitor for any pharmacologic adverse effects. Monitor the need for labs periodically and review results as available. Continue to work with for safe DC planning options. Continue fall precautions, aspiration precautions as applicable. Monitor risk of orthostasis and bleeding, fluid and electrolyte imbalances, etc. Continue to monitor for any acute change in symptoms, vitals, behavior, mental status etc. . Extensive bedside discussion with patient and family regarding multiple meds and symptom management and hospital course and rehab plan of care High risk of falls maintain fall precaution High risk of aspiration maintain aspiration precaution follow speech and dietary recs Entresto adjusted the patient's prior regimen along with metoprolol Bactrim completed currently no acute adverse effects Wound care requested Having shortness of breath and some wheezing requested chest x-ray and ordered prednisone 40 mg once a day for 3 days and nebulizer 3 times daily scheduled for short course plus as needed Orthopedics follow-up next week Adjusted lorazepam 0.5 mg 3 times daily scheduled and then as needed alprazolam Having exacerbation of COPD Staff requested refill for Suboxone, alprazolam, lorazepam and oxycodone which is all sent to the pharmacy and all med dosage regimen reviewed discussed with patient and family staff Risk of polypharmacy adverse effects reviewed at great length with the patient and the daughter present at bedside including but not limited to dizziness, fall, aspiration, bowel bladder dysfunction etc. patient aware and acknowledges the risks Supportive bowel meds in place and additionally on vitamin C, Tums, potassium supplements, Creon, eyedrops, omeprazole, pancrelipase Pain management with Tylenol, on low-dose Suboxone for adverse effects and oxycodone and may need further titration Hypothyroid managed with levothyroxine Anxiety depression psych med management with paroxetine, alprazolam, lorazepam titrated Respiratory management additionally with budesonide/formot tong inhaler, Spiriva inhaler Dyslipidemia management with Lipitor Edema management with short course of furosemide until oral intake is improved Right upper extremity edema to be monitored in orthopedics follow-up Monitor bleeding symptom on baby aspirin for VTE prophylaxis and continue PPI Okay to use home supply of Entresto Okay to cut metoprolol in half for appropriate use Notified clinical social work therapist on upcoming appointments and transportation etc. Incentive spirometry as tolerated Monitor weights Monitor for behavior and psych consult patient already has a therapist in the community 08/17/2025 Other . Follow progress with PT OT as per SNF protocol. Follow dock manager recommendations and monitor nutritional status. Monitor for any pharmacologic adverse effects. Monitor the need for labs periodically and review results as available. Continue to work with for safe DC planning options. Continue fall precautions, aspiration precautions as applicable. Monitor risk of orthostasis and bleeding, fluid and electrolyte imbalances, etc. Continue to monitor for any acute change in symptoms, vitals, behavior, mental status etc. . The current pain regimen of oxycodone and other medication is not adequately controlling the pain according to the patient leading to increased anxiety, irritability, mood disturbance, affecting mobility, affecting PT OT, requesting escalation of pain meds which if not done patient will have no meaningful participation in therapy and hence escalation is required temporarily at the least, also reports tizanidine has not worked but Flexeril has helped with muscle spasm, nursing also requested oxycodone refill given med escalation . Currently no metabolic encephalopathy Stable vitals O2 sat assuring mid 90s Wheezing is better with nebs and prior steroids Activity orders per Ortho PT OT as tolerated Paroxetine to be held while on Flexeril to decrease the risk of serotonin syndrome patient in agreement made aware New order for Flexeril 5 mg 3 times daily as needed for 4 weeks Oxycodone escalated 5 mg every 4 as needed for moderate pain and then 10 mg every 4 as needed for severe pain meds refilled Suboxone to be on hold for better pain management due to requiring increased oxy for safety . Multiple bowel regimen orders in place Continue skin care wound care monitor both upper extremity, neurovascular status Continue orthopedics follow-up Continue multivitamin All other meds to be continued same from prior visit Labs August 13 GFR 95 sodium 131 magnesium normal phosphorus normal otherwise CMP unremarkable CBC unremarkable except mild anemia H&H more than 10 and 34 Chest x-ray August 13 mild lung congestion patient is already on low-dose diuretics P.o. intake distal variable suboptimal needs assistance due to upper extremity fracture and shoulder procedure Continue Tylenol RT to follow-up accordingly for COPD management Continue PPI Plan Of Treatment No Information Insurance Providers Payer Name Payer Address Payer Phone Subscriber Number Group Number Insured Name Patient Relationship to Insured Coverage Start Date Coverage End Date Medicare Of [place] [address] [place] [address] [id number] Mayra Craft Self - patient is the insured [place] [employer] [address] [place] [address] [id number] Mayra Craft Self - patient is the insured Medical (General) History Surgical History Surgery Date(Month/Year) Status post revision right r everse total shoulder arthroplasty with conversion to right shoulder hemiarthroplasty 08/01/25 Hospitalization History Reason Date(Month/Year) reviewed records on admission and then a s required. .
--- OUTSIDE RECORDS SUMMARY | 2025-09-11 08:59 | XMS_ITS | Encounter Summary ---
Author Organization [facility] Address [address] [place] [address] Care Team Providers Care Student Services Counselor Name Role Phone Vanessa Culver MD Primary Care Provider [phone] Encounter Details Date Type Department Care Team (Late st Contact Info) Description 05/06/2021 Orders Only [facility] Gastroenterology [address] [place] [address] Qian Loomis, DO [address] [place] [address] Social History Tobacco Use Types Packs/Day Years [...] documented as of this encounter Care Teams Student Services Counselor Relationship Specialty Start Date End Date Vanessa Culver MD [address] [place] [id number] PCP - General Internal Medicine 05/24/25 documented as of this encounter
--- OUTSIDE RECORDS SUMMARY | 2025-09-11 08:59 | XMS_ITS | Data Portability ---
Author Organization [facility], [facility], Patient Home Address [address] [place] [phone] Care Team Providers Care Rental Counter Clerk Name Role Phone SYLVIA OLSON Primary Care Provider SYLVIA OLSON Referring Provider [phone] Assessment No assessment recorded. Plan of Treatment Reminders Order Date Submit Date Provider Last Modified By Organization Details Last Modified Time Details Appointments None recorde d. Lab drug screen, urine 024 03/02/20 24 [email or web address] Main Office, [address] [place] [address], [phone], 12:27:26 Referral None recorde d. Procedures None recorde d. Surgeries None recorde d. Imaging None recorde d. Medication Orders None recorde d. Patient Targets Encounter Date Encounter Id Patient Goals Patient Target Last Modified By Organization Details Last Modified Time 03/02/2024 [id number] decrease pain increase activities Improve life quality [email or web address] Not available 03/02/2024 12:26:13 Patient Instructions Encounter Date Encounter Id Patient Instructions Last Modified By Organization Details Last Modified Time 03/02/2024 [id number] Continue conservative treatment Continue home exercises as directed by MD Use ice and hot packs as instructed Take your medicine as instructed [email or web address] Not available 03/02/2024 12:26:19 given [email or web address] Not available 2023 12:26:24 Reason for Referral None Reported. Results Created Date Observation Date Name Description Value Unit Range Abnormal Flag Note LastModifiedBy Organization Detail LastModifiedTime 03/02/20 24 03/02/2024 drug scree n, urine Amphetamines : negati ve Not Available Main Office [address] [address], [place], [address], 03/02/2024 11:42:22 03/02/20 24 03/02/2024 drug scree n, urine Cannabinoids :THC negati ve Not Available Main Office [address] [address], [place], [address], 03/02/2024 11:42:22 03/02/20 24 03/02/2024 drug scree n, urine Cocaine: negati ve Not Available Main Office [address] [place] [address], [place], [address], 03/02/2024 11:42:22 03/02/20 24 03/02/2024 drug scree n, urine Methadone: negati ve Not Available Main Office [address] [place] [address], [place], [address], 03/02/2024 11:42:22 03/02/20 24 03/02/2024 drug scree n, urine Opiates: negati ve Not Available Main Office [address] [place] [address], [place], [address], 03/02/2024 11:42:22 03/02/20 24 03/02/2024 drug scree n, urine Oxycodone: positi ve Not Available Main Office [address] [place] [address], [place], [address], 03/02/2024 11:42:22 03/02/20 24 03/02/2024 drug scree n, urine Phenocyclidi ne: negati ve Not Available Main Office [address] [place] [address], [place], [address], 03/02/2024 11:42:22 03/02/20 24 03/02/2024 drug scree n, urine Barbiturates : negati ve Not Available Main Office [address] [place] [address], [place], [address], 03/02/2024 11:42:22 03/02/20 24 03/02/2024 drug scree n, urine Benzodiazepi sohan: positi ve Not Available Main Office [address] [facility] [address], [place], [address], 03/02/2024 11:42:22 03/02/20 24 03/02/2024 drug scree n, urine Buprenorphin e negati ve Not Available Main Office [address] [address], [place], [address], 03/02/2024 11:42:22 03/02/20 24 03/02/2024 drug scree n, urine Methamphetam ine negati ve Not Available Main Office [address] [address], [place], [address], 03/02/2024 11:42:22 03/02/20 24 03/02/2024 drug scree n, urine MDMA negati ve Not Available Main Office [address] [address], [place], [address], 03/02/2024 11:42:22 03/02/20 24 03/08/2024 [employer] HEALT HCARE PROFI LE oxycodone ur CMP >27173 NG/mL >=100 PRESE NT: A presc ripti on drug, not indic ated as presc ribed on the requi sitio n form, was detec khushboo. Not Available [employer] [address] [place] [address], [place], [address], 03/08/2024 17:35:13 03/02/20 24 03/08/2024 [employer] HE[employer] biodetect EXPECT ED Test resul t is consi stent with routi chidi reece zed human urine . Not Available [employer] [address] [place] [address], [place], [address], 03/08/2024 17:35:13 03/02/20 24 03/08/2024 [employer] HEALT HCARE PROFI LE opiates ur ql cfm >=100 NG/mL >=100 POSIT SHARMAINE Not Available [employer] [address] [place] [address], [place], [address], 03/08/2024 17:35:13 03/02/20 24 03/08/2024 [employer] oxymorphone ur cfm-mcnc 594 NG/mL >=100 POSIT SHARMAINE Not Available [employer] [address] [place] [address], [place], [address], 03/08/2024 17:35:13 03/02/20 24 03/08/2024 [employer] [facility] [employer] noroxycodone ur cfm-mcnc >3000 NG/mL >=100 POSIT SHARMAINE Not Available [employer] [address] [place] [address], [place], [address], 03/08/2024 17:35:13 03/02/20 24 03/08/2024 [employer] [facility] oxycodone ur cfm-mcnc >7500 NG/mL >=100 POSIT SHARMAINE Not Available [employer] [address] [place] [address], [place], [address], 03/08/2024 17:35:13 03/02/20 24 03/08/2024 [employer] alcohol metabolites ur ql cfm <200 NG/mL >=200 NONE DETEC KHUSHBOO Not Available [employer] [address] [place] [address], [address], 03/08/2024 17:35:13 03/02/20 24 03/08/2024 [employer] ethyl sulfate ur cfm-mcnc <200 NG/mL >=200 NONE DETEC KHUSHBOO Not Available [employer] [address] [place] [address], [address], 03/08/2024 17:35:13 03/02/20 24 03/08/2024 [facility] [facility] creat ur-mcnc 139.1 mg/dL 20 - 370 VEGA L Creat inine and pH are perfo rmed for speci men valid ity and not diagn ostic purpo ses. Not Available [employer] [address] [place] [address], [address], 03/08/2024 17:35:13 03/02/20 24 03/08/2024 [facility] PROFI [employer] pH ur 8.98 4.5 - 9.0 VEGA L Creat inine and pH are perfo rmed for speci men valid ity and not diagn ostic purpo ses. Not Available [employer] [address] [place] [address], [place], [address], 03/08/2024 17:35:13 03/02/[address], lumba r spine , w/o contr ast No observ ation record ed. ammariela Not Available 15:05:15 Result Notes None recorded. Problems Name Problem SNOMED Code Status Onset Date Resolution Date Notes Provider Name and Address Organization Details Recorded Time Low back pain 366839389 Active 2023 Ferozvini SimonPatricia laboyvini RODNEY locke [facility], [facility] 4 12:26:45 Lyme disease 68023254 Active 2023 Feroz AlosalinaPatricia laboyvini RODNEY locke - [facility], [facility] 4 12:27:07 Pain of shoulder region 73132500 Active 2023 Feroz AlfredPatricia dangelo RODNEY locke - [facility], [facility] 4 12:27:25 Hypertensive disorder 48693579 Active 2023 Feroz laboyvini RODNEY locke - [facility], [facility] 4 12:27:31 Generalized anxiety disorder 27991909 Active 2023 Feroz laboyvini RODNEY locke - [facility], [facility] 4 12:27:40 Depressive disorder 96801518 Active 2023 RODNEY [facility], [facility] 4 12:28:23 Migraine 04825460 Active 2023 RODNEY [facility], [facility] 4 12:28:33 Osteoporosis 25485579 Active 2023 [facility], [facility] 4 12:28:40 Problem Notes None recorded. Procedures Surgical History Date Name Laterality Status Provider Name and Address Organization Details Recorded Time operation on lung completed Feroz Canseco [facility], [facility] 03/02/2024 11:36:54 operation on stomach completed Feroz Canseco [facility], [facility] 03/02/2024 11:37:17 cardiac pacemaker procedure completed Feroz Canseco [facility], [facility] 03/02/2024 11:38:53 Imaging Results None recorded. Procedure Notes None recorded. Medical Equipment None Reported. Allergies Allergen ID Allergen Name Allergen Category Reaction Reaction Severity Criticality Documentation Date Start Date Code Code System Note Provider Name and Address Organization Details Recorded Time 7518 tetracycl ine medicatio n Not available Not available Not available 02/17/2024 93420 RxNorm RODNEY [facility], [facility] 4 12:19:48 Medications Name Sig Start Date Stop Date Status Note LastModified by Organization Details LastModified Time Keflex 500 mg capsule Take 1 capsule every 6 hours by oral route. 03/02 completed Not Available Not Available Not Available acetaminoph en 300 mg-codeine 30 mg tablet Take 1 tablet every 6 hours by oral route. 03/02 completed Not Available Not Available Not Available tramadol 50 mg tablet active Not Available Not Available No t Available IBU-200 200 mg tablet Take 1 tablet every 6 hours by oral route. active Not Available Not Available No t Available lorazepam 0.5 mg tablet Take 2 tablets 3 times a day by oral route. 03/02 completed Not Available Not Available Not Available Zoloft 50 mg tablet Take 1 tablet every day by oral route. active Not Available Not Available No t Available Lipitor 40 mg tablet Take 1 tablet every day by oral route. active Not Available Not Available No t Available calcitonin (salmon) 200 unit/actuat ion nasal spray ADMINISTE R 1 SPRAY INTO ONE NOSTRIL ONCE A DAY 03/02 completed Not Available Not Available Not Available metoprolol succinate ER 25 mg tablet,exte nded release 24 hr Take 1 tablet every day by oral route. active Not Available Not Available No t Available Ventolin HFA 90 mcg/actuati on aerosol inhaler Inhale 2 puffs every 4 hours by inhalatio n route. active Not Available Not Available No t Available biotin 1 mg tablet Take by oral route. 03/02 completed Not Available Not Available Not Available vitamin B complex active Not Available Not Available Not Available Vitamin D3 active Not Available Not Av ailable Not Available quetiapine 50 mg tablet Take 1 tablet twice a day by oral route. 03/02 completed Not Available Not Available Not Available oxycodone 10 mg tablet active Not Available Not Available Not Available Entresto 24 mg-26 mg tablet TAKE 1 TABLET BY MOUTH TWICE DAILY active Not Available Not Available No t Available Xtampza ER 36 mg capsule sprinkle Take 1 capsule every 12 hours by oral route. active Not Available Not Available No t Available Xtampza ER 9 mg capsule sprinkle active Not Available Not Available Not Available Breztri Aerosphere 160 mcg-9mcg-4. 8mcg/actuat ion HFA aerosol inhaler Inhale 2 puffs twice a day by inhalatio n route. active Not Available Not Available No t Available Vitals Date Recorded Body height Body mass index (BMI) Body weight Respiratory rate Heart rate Heart rate Oxygen saturation Systolic And Diastolic Provider Name and Address Organization Details Last Updated DateTime 172.72 cm 21.6 kg/m2 07233.1 2 g 18 /min 70 /min 70 /min 94 % 125/82 mm[Hg] Feroz pierson [facility], [facility] 11:40:47 Date Recorded Body temperature Provider Name a nd Address Organization Details Last Updated DateTime 03/02/2024 97.2 [degF] Nayana Walsh [facility], [facility] 03/02/2024 11:27:31 Social History Question Answer Notes LastModified by Organizat ion Details LastModified Time Tobacco Smoking Status Former Smoker Feroz Canseco [facility], [facility] 03/02/2024 11:37:55 Are You Blind Or Do You Have Difficulty Seeing? No Information n ot available 03/02/2024 What Is Your Level Of Caffeine Consumption? Moderate Information not available 03/02/2024 In The 14 Days Before Symptom Onset, Have You Had Close Contact With A Laboratory-confirm ed COVID-19 While That Case Was Ill? No Information n ot available 03/02/2024 In The 14 Days Before Symptom Onset, Have You Had Close Contact With A Person Who Is Under Investigation For COVID-19 While That Person Was Ill? No Information not available 03/02/2024 Have You Been To An Area Known To Be High Risk For COVID-19? No Information not available 03/02/2024 Are You Deaf Or Do You Have Serious Difficulty Hearing? No Information not available 03/02/2024 What Type Of Diet Are You Following? REGULAR Information n ot available 03/02/2024 Which Of Your Hands Is Dominant? Right Information n ot available 03/02/2024 Do You Have Difficulty Walking Or Climbing Stairs? Yes Information not available 03/02/2024 Sex: Unknown Functional Status Question Answer Note LastModified by Organization D etails LastModified Time What is your level of alcohol consumption? None Information not available 03/02/2024 Do you have difficulty doing errands alone? Yes Information not available 03/02/2024 Do you have difficulty dressing, bathing, grooming, or toileting? Yes Information not available 03/02/2024 Mental Status Question Answer Note LastModified by Organization D etails LastModified Time Do you have difficulty concentrating, remembering or making decisions? No Information no t available 03/02/2024 Family History Nothing Reported. Medical History Condition Response Coronary Artery Disease N Gout N Head Trauma/Injury N Hernia N Thyroid Problems Y COPD Y Depression N Anemia N Ulcers N Heart Attack ([place]) N Diabetes N Anxiety Disorder Y Bleeding Disorder N Arthritis Y Tuberculosis N AIDS/HIV N Acid Reflux (GERD) N Cancer Y Stroke N Asthma N Substance Abuse Y Back Injury N High Cholesterol N Hepatitis N Liver Disease N Heart Disease N Headaches N Fibromyalgia N Hypertension Y Osteoporosis N Kidney Disease N Gynecological HistoryNo gynecological history recorded. 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 Spinal anastasiya nosis of lumbar region 83576435 M48.062 follow-uup with her neurosurge on Idiopathic chronic pancreatitis 827638904 K86.1 follow-up with gastroente rologist Health Concerns Section Related Observation LastModified by Organization Detai ls LastModified Time None Recorded Concern Status LastModified by Organization Details LastModified Time None Recorded Advance Directives Directive None Recorded Payers Insurance Date Sequence Insurance Name Policy Number Policy Fisher Covered Member ID Fisher Member ID Guarantor Name 03/02/2024 1 [place]ICARE [place]: [employer] Mayra Craft [id number] Mayra Craft 03/02/2024 2 [place] [facility] Mayra Craft [id number] Mayra Craft Notes Date Note Type Note Provider Name and Address Organization Details Recorded Time 03/02/2024 text/html 73 years old female with a history of chronic pancreatitis, recent history of lower back pain which radiates to the right leg and right arm pain when she tried to left heavy object a month ago, she has a history of COPD, TIA, cardiomyopathy, anxiety, migraine, status post pacemaker placement. She was recently seen by neurosurgeon at [facility] and also her primary care order right shoulder x-ray. She presented today with severe lower back pain, right shoulder and right arm pain, rated 7-9/10 VAS, the lower back pain radiates to the right lower extremity with paresthesia. CT scan of the lumbar spine done in 02/09/2024 with impression: Moderate compression fracture of L5 which may be acute. multilevel degenerative changes. Severe spinal canal stenosis at L4-L5, mild 3 level foraminal stenosis. She is taking oxycodone 10 mg 4 times a day, xtampza 36 mg twice a day, oxycodone 10 mg 4 times a day, tramadol 50 4 times a day, Zoloft, Seroquel, Lorazepam 0.5 mg twice a day. Screening UT done today was positive for benzodiazepine and oxycodone Tacho Arambula MD [address] [place] [address],[address], [place], [address], [facility], [facility] 03/02/2024 12:27:28 OBGyn Episode No OBEpisode recorded.
--- OUTSIDE RECORDS SUMMARY | 2025-09-11 08:59 | XMS_ITS | Encounter Summary ---
Author Organization [facility] Address [address] [place] [address] Care Team Providers Care Supervisor Alum Plant Name Role Phone Vanessa Culver MD Primary Care Provider [phone] Reason for Visit * Reason Comments E-prescribing Refill Request Encounter Details Date Type Department Care Team ([facility] st Contact Info) Description 07/15/2018 Refill [facility] Adult Medicine [address] [place] [phone] Vanessa Culver MD 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 Culver, Patient requesting QUETIAPINE FUMARATE 50 MG. Per CPE on 04/28/18 patient's dose increased to 50 mg from 25 mg. Medication pended. Please review and advise. * Telephone Encounter - Dave Cordova - 07/15/2018 10:30 AM EDT Pt picked up Rx yesterday, 07/14, for QUETIAPINE FUMARATE but states it was for 25 mg and it is supposed to be 50 mg. Pt states she is taking 2 tabs at bedtime to equal her dosage but would like a newRx sent to pharmacy. [facility] [address] [place] [phone] documented in this encounter Plan of Treatment Upcoming Encounters Date Type Department Care Team (Late st Contact Info) Description 12/19/2025 1:00 PM EDT Office Visit [facility] [address] [place] [phone] Lalo Grove MD [address] [place] [id number] F/u with Dr. Lalo Grove next November - January 06 CHF documented as of this encounter Goals Goal Patient Goal Type Associated Problems Recent Progress Patient-Stated? Author Quit smoking / using tobacco Lifestyle No Ana Vides documented as of this encounter Visit Diagnoses Diagnosis Generalized anxiety disorder documented in this encounter Care Teams Supervisor Alum Plant Relationship Specialty Start Date End Date Vanessa Culver MD PCP - General 08/31/14 documented as of this encounter
--- OUTSIDE RECORDS SUMMARY | 2025-09-11 08:59 | XMS_ITS | Clinical Summary ---
Author Organization [employer] Address [address] [place], [place] [id number] [place] [address] Care Team Providers Care Tester Wafer Substrate Name Role Phone Vanessa Culver Md Primary Care Provider [phone] Allergies Active Allergy Reactions Criticality Noted Date Comments Tetracycline Hives 07/04/2007 In mouth Medications Albuterol Sulfate (PROAIR HFA) 90 mcg/actuation Inhalation HFA Aerosol InhalerIndication s:COPD with acute exacerbation ([facility]) Take 2 puffs every 4 to 6 hours as needed; rinse mouthpiece at least weekly 1 Inhaler 3 3 Active fluticasone-salme terol (ADVAIR DISKUS) 250-50 mcg/dose Inhalation Disk with DeviceIndications :Lung disease, chronic obstructive Use 1 puff twice daily and rinse your mouth thoroughly afterward 1 Inhaler 5 5 Active omsvxn-wzuiwdok-g mylase (VIOKASE 16) 935 mg (16,000- 60K-60K unit) Oral tabletIndications :Chronic pancreatitis ([facility]) Take 90 tablets by mouth three times daily with meals Prescribed by GI 90 tablet 0 5 Active morphine (MS CONTIN) 30 mg Oral tablet extended release Take 1 tablet by mouth every 12 hours PRESCRIBED BY GI 56 tablet 0 5 Active morphine (MSIR) 15 mg Oral tabletIndications :Chronic pancreatitis ([facility]) 1 TABLET Q 12 HOURS NEEDED , PRESCRIBED BY GI 84 tablet 0 5 Active oxyCODONE (OXYCONTIN) 10 mg Oral tablet extended release 12 hr SR 12 HrIndications:Chr onic pancreatitis ([facility]),Chronic abdominal pain Take 1 tablet by mouth every 12 hours as needed for pain , PRESCRIBED BY GI 56 tablet 0 5 Active budesonide-formot tong (SYMBICORT) 160-4.5 mcg/actuation Inhalation HFA Aerosol InhalerIndication s:Lung disease, chronic obstructive Use 2 puffs twice daily and rinse your mouth thoroughly afterward 1 Inhaler 5 5 Active Active Problems Problem Noted Date Diagnosed Date 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 TIA (transient ischemic attack) 02/21/2010 chronic Shoulder pain 02/21/2010 Tobacco dependence 02/26/2009 History of basal cell carcinoma 02/26/2009 Lung disease, chronic obstructive 02/26/2009 Immunizations Immunization Administration Dates Next Due Influenza H1N1 Vaccine >= 36 Mos - [facility] 07/09/2009 Influenza Vaccine (Unspecified Formulation) 04/2011,06/04/2010,06/14/2009 Pneumococ/Adult-Polysac (PPSV23) 06/06/2010 TD Vaccine (Adult) 02/28/2008 TdaP 03/30/2011 Zoster Live (Shingles) Vaccine, Zostavax 009 Surgical History Surgery Date Site/Laterality Comments basal cell carcinoma KNEE ARTHROSCOP MENISCAL TRANSPLANT MED/LAT right MAMMOGRAM SCREENING 04/15/10 neg Medical History Medical History Date Comments Tobacco dependence Basal cell carcinoma 08/10/07 on face ,co mpletely excised by Headache, migraine Lung disease, emphysema Duodenal ulcer, unspecified as acute or chronic, without hemorrhage, perforation, or obstruction no endocopy done Depressive disorder Anxiety states Trigger finger 7.09 Left / Dr Cooper Family History Medical History Relation Comments prostate ca [Other] Maternal Grandfather skin ca [Other] Maternal Grandfather liver ca [Other] Maternal Grandmother lung ca [Other] Maternal Uncle former smoker , ca in his 80s skin ca [Other] Mother Relation Status Comments Maternal Grandfather Maternal Grandmother Maternal Uncle Mother Social History Tobacco Use Types Packs/Day Years Used Date Smoking Tobacco: Every Day Cigarettes Comments:started at age 14 Alcohol Use Standard Drinks/Week Comments No 0 (1 standard drink = 0.6 oz pure alcohol) used to be an alcoholic , sober since 1991 Comments No Sex and Gender Information Value Date Recorded Sex Assigned at Not on file Legal Sex Female 5:03 PM EDT Gender Identity Not on file Sexual Orientation Not on file 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 file Not on file Not on file Obstetrics History Para Term AB IAB SAB Ectopic Multiple Livin g Live Births 4 4 Date Outcome GA Total Labor Labor/2nd/3rd Weight Sex Type Anes PTL Kaleigh A1 A5 Name Clin Para Para Para Para Last Filed Vital Signs Vital Sign Reading Time Taken Comments Blood Pressure 130/82 12/14/2014 11:04 AM EDT Pulse 81 12/14/2014 11:04 AM EDT Temperature 37 C (98.6 F) 09/11/2013 4:23 PM EST Respiratory Rate - - Oxygen Saturation 98% 09/11/2013 4:23 PM EST Inhaled Oxygen Concentration - - Weight 60.3 kg (133 lb) 12/14/2014 11:04 AM EDT Height 168.9 cm (5' 6.5 ) 02/26/2009 8:00 AM EDT Body Mass Index 21.15 02/26/2009 8:00 AM EDT Plan of Treatment Health Maintenance Due Date Last Done Comments OFFICE VISIT 1948 HEP B INITIAL SCREENING 1966 HEP C SCREENING 1984 BONE DENSITY 1988 PAP: UPDATE W EDIT MODIFIERS 02/27/2009 02/26/2009 ZOSTER VACCINE (2 of 3) 04/23/2009 02/26/2009 PERIODIC HEALTH REVIEW 02/26/2010 02/26/2009 PNEUMOCOCCAL VACCINE(S) 50+ (2 of 2 - PCV) 06/06/2011 06/06/2010 * GLUCOSE OR A1C SCREENING - Q3YR 02/27/2012 02/26/2009, 02/26/2009, 08/13/2008, Additional history exists COMPLETE EYE EXAM (65+YRS) 2013 LIPID SCREENING 02/26/2014 02/26/2009, 02/26/2009 DTAP/TDAP/TD VACCINE (2 - Td or Tdap) 03/30/2021 03/30/2011, 02/28/2008 MAMMOGRAPHY: UPDATE W/ EDIT MODIFIERS 2023 04/15/2010 RSV Vaccine Adult (1 - 1-dose 75+ series) 2023 COVID-19 Vaccine ( season) 2025 FLU SEASONAL (#1) 05/14/2025 05/21/2011, 06/04/2010, 06/14/2009 HAEMOPHILUS INFLUENZA VACCINE Aged Out No longer eligible based on patient's age to complete this topic HEPATITIS A VACCINE Aged Out No longe r eligible based on patient's age to complete this topic HEPATITIS B VACCINE Aged Out No longe r eligible based on patient's age to complete this topic POLIO VACCINE Aged Out No longer elig ible based on patient's age to complete this topic RSV Vaccine Infant//toddler Aged Out No longer eligible based on patient's age to complete this topic Procedures Procedure Name Priority Date/Time Associated Diagnosis Comments MAMMOGRAM SCREENING Routine 04/15/2010 COMPREHENSIVE METABOLIC PROFILE Routine 02/26/2009 12:00 AM EDT PHYSICAL EXAM LIPID PROFILE Routine 02/26/2009 12:00 AM EDT PHYSICAL EXAM SUREPATH PAP & HPV MRNA E6/E7 (HIGH RISK >30YRS) Routine 02/26/2009 12:00 AM EDT PHYSICAL EXAM from Last 3 Months or Most Recently Relevant to Health Maintenance Results * MAMMOGRAM SCREENING (04/15/2010) Anatomical Region Laterality Modality Breast Bilateral Other us Vanessa Palencia [facility] Final Resul t * SUREPATH PAP & HPV (HIGH RISK) (02/26/2009 12:00 AM EDT) PAP/HPV HIGH RISK SEE TEXT [facility] Comment: SUREPATH WITH HPV SOURCE: CERVIX [...] OR VAGINAL SPECIMENS, HAVE BEEN DETERMINED BY [facility] [facility]. COMMENTS: THIS CASE WAS SUCCESSFULLY PROCESSED BY THE [employer] MA[employer]RE D'. HPV PERFORMED AT [facility], [address] [place] [address], SANDEEP PENA M.D., DIRECTOR RESULT DATE: 03/04/2009 TECHNOLOGIST: GILMAR GYNECOLOGICAL CYTOLOGY IS A SCREENING PROCEDURE SUBJECT TO BOTH FALSE NEGATIVE AND FALSE POSITIVE RESULTS. IT IS MOST RELIABLE WHEN A SATISFACTORY SAMPLE IS OBTAINED ON A REGULAR REPETITIVE BASIS. RESULTS MUST BE INTERPRETED IN THE CONTEXT OF HISTORIC AND CURRENT CLINICAL INFORMATION. [facility] COMMENTS: THIS CASE WAS SUCCESSFULLY PROCESSED BY THE [employer] D'. HPV PERFORMED AT [facility] [facility], [address], [place], [place], SANDEEP PENA M.D., DIRECTOR 02/26/2009 02/26/2009 10: 13 AM EDT Narrative [facility] - 03/04/2009 10:15 AM EDT Is patient high risk for cervical/vaginal cancer? (y/n) [facility] ONLY->NO NOTE: ALL info above required by CLIA. If not supplied, you will be asked to resubmit the order. 5 - High Risk Category none 4-Other history: none. -as noted. 3-Menstrual History: No LMP date recorded. Reason: Postmenopausal.; if LMP noted, hit Enter now; otherwise select any other appropriate line(s): 2-Specimen source: cervix. 1-Anticipated interval to next Pap: 1 yr us Vanessa Squires [facility] Final Result [facility] [address] [place] [address] * LIPID PROFILE (02/26/2009 12:00 AM EDT) CHOLESTEROL 173 100 - 199 MG/DL [facility] TRIGLYCERIDES 59 30 - 149 MG/DL [facility] HDL 70 40 - 77 MG/DL [facility] LDL 91 62 - 130 MG/DL [facility] CHOL/HDL RATIO 2 0 - 5 CALC [facility] Venous Draw 02/26/2009 02/26/2009 9: 16 AM EDT us Vanessa Squires [facility] Final Result [facility] [address] [place] [address] * (ABNORMAL) COMPREHENSIVE METABOLIC PANEL (02/26/2009 12:00 AM EDT) [facility] GLUCOSE 93 65 - 99 mg/dL [facility] BUN 21 7 - 25 MG/DL [facility] CREATININE 0.7 0.5 - 1.3 MG/DL [facility] BUN/CREATININE RATIO 30(H) 6 - 25 RATIO [facility] SODIUM 142 135 - 148 MEQ/L [facility] POTASSIUM 4.6 3.5 - 5.3 MEQ/L [facility] CHLORIDE 103 98 - 110 MEQ/L [facility] CALCIUM 9.6 8.5 - 10.4 MG/DL [facility] TOTAL PROTEIN SERUM 7.2 6.0 - 8.3 G/DL [facility] ALBUMIN 4.4 3.5 - 4.9 G/DL [facility] GLOBULIN 3 2 - 4 G/DL [facility] A/G RATIO (PREL) 1.6 0.8 - 2.0 (CALC) [facility] BILIRUBIN TOTAL 0.5 0.2 - 1.5 MG/DL [facility] ALKALINE PHOSPHATASE 81 33 - 130 U/L [facility] SGOT (AST) 27 14 - 36 U/L [facility] CARBON DIOXIDE 30 21 - 33 MEQ/L [facility] SGPT (ALT) 14 9 - 52 U/L [facility] 02/26/2009 02/26/2009 9:1 6 AM EDT us Vanessa [facility] Final Result [facility] [address] [place] [address] from Last 3 Months or Most Recently Relevant to Health Maintenance Care Teams Tester Wafer Substrate Relationship Specialty Start Date End Date Vanessa Culver MD PCP - General 06/22/08
--- OUTSIDE RECORDS SUMMARY | 2025-09-11 08:59 | XMS_ITS | Encounter Summary ---
Author Organization [facility] Address [address] [place] [address] Care Team Providers Care Exercise Teacher Name Role Phone Vanessa Culver MD Primary Care Provider [phone] Encounter Details Date Type Department Care Team ([facility] Contact Info) Description 07/21/2018 Orders Only [facility] Adult Medicine [address] [place] [id number] Vanessa Culver MD [facility] [address] [facility] [address] [place] [address] Social History Tobacco Use Types Packs/Day Years [...] Start Date Job End 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 Lalo Grove next November - January 06 CHF documented as of this encounter Goals Goal Patient Goal Type Associated Problems Recent Progress Patient-Stated? Author Quit smoking / using tobacco Lifestyle No MahoganyAna documented as of this encounter Procedures * Due to [facility] law, this organization might not be sharing negative HIV tests. Procedure Name Priority Date/Time Associated Diagnosis Comments EKG-TO BE READ & BILLED BY ADULT OR PEDIATRIC CARDIOLOGY Routine 07/21/2018 9:59 AM EST Chronic obstructive pulmonary disease, unspecified COPD type TSH, 3RD GENERATION Routine 07/21/2018 9 :33 AM EST Dry skin VITAMIN B12 (CYANOCOBALAMIN), SERUM Routine 07/21/2018 9:33 AM EST Chronic pancreatitis, unspecified pancreatitis type VITAMIN D, 25-HYDROXY, TOTAL, IMMUNOASSAY Routine 07/21/2018 9:33 AM EST Chronic pancreatitis, unspecified pancreatitis type documented in this encounter Results * Due to [place] [employer] law, this organization might not be sharing negative HIV tests. * EKG-TO BE READ AND BILLED BY CARDIOLOGY (07/21/2018 9:59 AM EST) VENTRICULAR RATE 54 BPM MUS E EKG SYSTEM ATRIAL RATE 54 BPM MUSE EKG SYSTEM P-R INTERVAL 188 ms MUSE EK G SYSTEM QRS DURATION 106 ms MUSE EK G SYSTEM QT 428 ms MUSE EKG SYSTEM QTC 405 ms MUSE EKG SYSTEM P AXIS 30 degrees MUSE EKG SYSTEM R AXIS 29 degrees MUSE EKG SYSTEM T AXIS -11 degrees MUSE EKG SYSTEM EKG INTERPRETATION Motion artifact Sinus bradycardia Minimal voltage criteria for LVH, may be normal variant Abnormal ECG When compared with ECG of 11-11-2015 Probable inferior wall ischemia Inferior wall is new Confirmed by ALYSHA LEDESMA ([id number]), website/blog editor NATHALIE CHENG ([id number]) on 07/22/2018 1:08:45 PM MUSE EKG SYSTEM 07/21/2018 9:59 AM EST 07/22/2018 1:08 PM EST us Vanessa Culver MD CARDIOVASCULAR-WITH INBSKT RTG Final Result MUSE EKG SYSTEM * TSH, 3RD GENERATION (07/21/2018 9:33 AM EST) TSH (Thyrotropin) 4.18 0.40 - 4.50 uIU/ml [facility] 07/21/2018 9:33 AM EST 07/21/2018 9:33 AM EST Narrative [facility] - 07/21/2018 11:49 AM EST non fasting Patient's primary care provider is: N/A Testing performed at: [facility], [address] [place] [address], [id number], Cheese Maker: Dean Perez MD us Vanessa Culver MD LABORATORY Final Result Performing Organization Address [facility] Co de Phone Number [address] [address] DIRECTOR Dean Perez MD * VITAMIN B12 (CYANOCOBALAMIN), SERUM (07/21/2018 9:33 AM EST) Vitamin B12 (Cobalamins) 490 211 - 946 pg/mL [facility] 07/21/2018 9:33 AM EST 07/21/2018 9:33 AM EST Narrative [facility] - 07/21/2018 11:49 AM EST non fasting Patient's primary care provider is: N/A Testing performed at: [facility], [address] [place] [address], [id number], Cheese Maker: Dean Perez MD us Vanessa Culver MD LABORATORY Final Result Performing Organization Address [facility] Co de Phone Number [address] [address] DIRECTOR Dean Perez MD * VITAMIN D, 25-HYDROXY, TOTAL, IMMUNOASSAY (07/21/2018 9:33 AM EST) VIT D, 25-OH, TOTAL 32 >29 ng/mL [facility] Comment: Vitamin D Status 25-OH Vitamin D: Deficiency: <20 ng/mL Insufficiency: 20-29 ng/mL Optimal: > or = 30 ng/mL 07/21/2018 9:33 AM EST 07/21/2018 9:33 AM EST Narrative [facility] - 07/21/2018 11:49 AM EST non fasting Patient's primary care provider is: N/A Testing performed at: [facility], [address] [place] [address], [id number], Cheese Maker: Dean Perez MD us Vanessa Culver MD LABORATORY Final Result [address] [address] DIRECTOR Dean Perez MD documented in this encounter Visit Diagnoses Diagnosis Chronic pancreatitis, unspecified pancreatitis type (HCC) Dry skin Other specified disease of sebaceous glands Chronic obstructive pulmonary disease, unspecified COPD type (HCC) documented in this encounter Care Teams Exercise Teacher Relationship Specialty Start Date End Date Vanessa Culver MD PCP - General 08/31/14 documented as of this encounter
== END 2025-09-11 07:13 | disposition home or self-care (01) ==
LOC: HO.MMNH1L 07:12
PROVIDERS: Visit Provider Physician Assistant Medical
DX: I10 Essential (primary) hypertension (principal); Z13.1 Encounter for screening for diabetes mellitus
CPT/HCPCS: 36415; 80053; 83036; 85025